=== PATIENT | male | born 1950 | race Caucasian/White ===

== ENCOUNTER 2017-04-04 22:01 | Emergency (ER) | payer MEDICARE, BC ==
[2017-04-04] MEDS ORDERED: CLOTRIMAZOLE 1% CREAM 15 GM TUBE TOPICAL STA (22:20)
--- NOTE | 2017-04-04 22:20 | ED ---
General Adult HPI - General Stated complaint: groin pain Time Seen by Provider: 04/04/17 22:06 Source: patient, RN notes reviewed Mode of arrival: ambulatory Limitations: no limitations - History of Present Illness Initial comments: 66-year-old male presents to the emergency department with a chief complaint of groin pain. Patient states all day he's had this pain to his groin. Patient states it feels very sensitive and tender. Patient states that his groin that is also into his testicles. Patient states he hasn't had any pain with urination. Patient states there is no radiation of pain. Patient states it is tender when he touches the skin. Patient has been putting powder in the skin because there does appear to be a rash. Patient states he was concerned due to his pains without that he should be evaluated. Patient denies any recent fever , chills, shortness of breath, chest pain, back pain, abdominal pain, nausea vomiting, numbness or tingling, dysuria or hematuria, constipation or diarrhea, headaches or visual changes, or any other current symptoms. - Related Data Home Medications Medication Instructions Recorded Confirmed Allopurinol [Zyloprim] 100 mg PO DAILY 11/02/14 04/04/17 Aspirin EC [Ecotrin Low Dose] 81 mg PO HS 11/02/14 04/04/17 Furosemide [Lasix] 80 mg PO TID 11/02/14 04/04/17 Lisinopril [Prinivil] 5 mg PO DAILY 11/02/14 04/04/17 Metoprolol Tartrate 25 mg PO BID 11/02/14 04/04/17 Multivitamins, Thera [Multivitamin 1 tab PO DAILY 11/02/14 04/04/17 (formulary)] Simvastatin [Zocor] 40 mg PO HS 11/02/14 04/04/17 Hydrocodone/Acetaminophen [[place] 1 tab PO Q6HR PRN 01/10/16 04/04/17 5-325] Ipratropium-Albuterol Nebulize 3 ml INHALATION RT-QID PRN 01/10/16 04/04/17 [Duoneb 0.5 mg-3 mg/3 ml Soln] Potassium Chloride [Klor-Con] 40 meq PO BID 01/10/16 04/04/17 Furosemide [Lasix] 80 mg PO BID 02/09/16 04/04/17 Nystatin 100,000Unit/gm Cream 1 applic TOPICAL BID 04/04/17 04/04/17 [Mycostatin Cream] Omeprazole [PriLOSEC] 40 mg PO DAILY 04/04/17 04/04/17 Sertraline [Zoloft] 100 mg PO DAILY 04/04/17 04/04/17 Previous Rx's Medication Instructions Recorded Montelukast [Singulair] 10 mg PO HS #30 tab 11/07/14 Clotrimazole Cream [Lotrimin Cream] 1 applic TOPICAL BID 21 Days 04/04/17 Levofloxacin [Levaquin] 500 mg PO DAILY #20 tab 04/04/17 Allergies Allergy/AdvReac Type Severity Reaction Status Date / Time No Known Allergies Allergy Verified 04/04/17 22:11 Review of Systems ROS Statement: Those systems with pertinent positive or pertinent negative responses have been documented in the HPI. ROS Other: All systems not noted in ROS Statement are negative. Past Medical History Past Medical History: Asthma, Heart Failure, COPD, Hyperlipidemia, Hypertension , Musculoskeletal Disorder, Osteoarthritis (OA), Respiratory Disorder, Sleep Apnea/CPAP/BIPAP Additional Past Medical History / Comment(s): C PAP USES OXYGEN History of Any Multi-Drug Resistant Organisms: None Reported Past Surgical History: Tonsillectomy Additional Past Surgical History / Comment(s): left arm wrist ORIF Past Anesthesia/Blood Transfusion Reactions: No Reported Reaction Additional Past Anesthesia/Blood Transfusion Reaction / Comment(s): Never had Past Psychological History: Depression Additional Psychological History / Comment(s): pt lives at [facility], uses a walker or wheelchair to get around, cares for himself. Smoking Status: Former smoker Past Alcohol Use History: None Reported Additional Past Alcohol Use History / Comment(s): started smoking at age 21- 2ppd then quit 2004, QUIT DRINKING ALCHOLOL JAN 2016 Past Drug Use History: None Reported - Past Family History Mother Family Medical History: Congestive Heart Failure (CHF), Osteoarthritis (OA) Father Family Medical History: CVA/TIA, Hypertension Additional Family Medical History / Comment(s): brain aneurysm Brother(s) Family Medical History: Cancer General Exam Limitations: no limitations General appearance: alert, in no apparent distress Head exam: Present: atraumatic, normocephalic, normal inspection Neck exam: Present: normal inspection. Absent: tenderness, meningismus, lymphadenopathy Respiratory exam: Present: normal lung sounds bilaterally. Absent: respiratory distress, wheezes, rales, rhonchi, stridor Cardiovascular Exam: Present: regular rate, normal rhythm, normal heart sounds. Absent: systolic murmur, diastolic murmur, rubs, gallop, clicks exam: Present: vertical testicular lie, other (She does appear to have a candidiasis type infection to the groin area most consistent with jock itch.). Absent: testicular tenderness, urethral discharge, scrotal swelling Back exam: Present: normal inspection Neurological exam: Present: alert, oriented X3, CN II-XII intact Psychiatric exam: Present: normal affect, normal mood Skin exam: Present: warm, dry, intact, normal color. Absent: rash Course Vital Signs 04/04/17 22:03 Temperature 98.2 F Pulse Rate 98 Respiratory 26 H Rate Blood Pressure 155/77 O2 Sat by Pulse 94 L Oximetry Medical Decision Making - Medical Decision Making 66-year-old male presents emergency Department with a chief complaint of groin pain. Patient ultrasound and urinalysis. Urinalysis is negative however there is concern for possible epididymitis. We will cover with antibiotics for the patient as well as with the cream. The patient discussed care for this and [place] parameters. This time patient does appear to have tinea cruris. We will set the patient on medication for this. We discussed up with Dr. duncan parameters. Discussed all the patient's questions. He stated he understood reasons. Plan. He'll be discharged home. - Lab Data Lab Results 04/04/17 Range/Units 22:12 Urine Color Light Yellow Urine Appearance Clear (Clear) Urine pH 7.0 (5.0-8.0) Ur Specific [place] 1.005 (1.001-1.035) Urine Protein Negative (Negative) Urine Glucose (UA) Negative (Negative) Urine Ketones Negative (Negative) Urine Blood Negative (Negative) Urine Nitrite Negative (Negative) Urine Bilirubin Negative (Negative) Urine Urobilinogen <2.0 (<2.0) mg/dL Ur Leukocyte Esterase Negative (Negative) - Radiology Data Radiology results: report reviewed, image reviewed Disposition Clinical Impression: Tinea cruris, Epididymitis Disposition: HOME SELF-CARE Condition: Stable Instructions: Jock Itch (ED) Additional Instructions: Please use medication as discussed. Please follow up with family doctor if symptoms have not improved over the next two days. Please return to the emergency room if your symptoms increase or worsen or for any other concerns. Prescriptions: Clotrimazole Cream [Lotrimin Cream] 1 applic TOPICAL BID 21 Days Levofloxacin [Levaquin] 500 mg PO DAILY #20 tab Referrals: Alison Leon MD [Primary Care Provider] - 1-2 days Time of Disposition: 23:47
[2017-04-04 22:29] LABS: Appearance,Urine Clear (Clear); Bilirubin,Urine Negative (Negative); Glucose,Urine (UA) Negative (Negative); Ketones,Urine Negative (Negative); Leukocyte Esterase,Urine Negative (Negative); Nitrite,Urine Negative (Negative); Protein,Urine Negative (Negative); Specific Gravity,Urine 1.005 (1.001-1.035); UA Billing (MACRO vs. MICRO) CHEM; Urobilinogen,Urine <2.0 mg/dL (<2.0)
--- NOTE | 2017-04-04 23:44 | US ---
EXAM: US Scrotum CLINICAL HISTORY: Reason: Pain TECHNIQUE: Real-time ultrasound of the scrotum with color Doppler and image documentation. COMPARISON: None FINDINGS: Right testicle: Measures 3.3 x 2.0 x 3.3 cm (volume 11.6 cc). Normal color Doppler flow to the right testicle. 5 mm simple-appearing cyst in the right testicle. Right epididymis: Right epididymal head measures 0.9 cm. Increased color Doppler flow. Left testicle: Measures 3.1 x 3.4 x 2.2 cm (volume 12.1 cc). Normal color Doppler flow to the left testicle. Left epididymis: Left epididymal head measures 0.7 cm. Normal appearance. Scrotum: No hydrocele or varicocele. IMPRESSION: Hyperemia of the right epididymis, suggestive of epididymitis.
[2017-04-05 00:07] VITALS: BP 137/66; PULSE 88; RESP 18; TEMP 97.9
== END 2017-04-05 00:11 | disposition home or self-care (01) ==
LOC: EC 22:01
DX: B35.6 Tinea cruris (principal); N45.1 Epididymitis; M19.90 Unspecified osteoarthritis, unspecified site; I10 Essential (primary) hypertension; F32.9 Major depressive disorder, single episode, unspecified; E78.5 Hyperlipidemia, unspecified; Z87.891 Personal history of nicotine dependence; Z79.82 Long term (current) use of aspirin; Z79.899 Other long term (current) drug therapy
CPT/HCPCS: 76870; 81003; 87086; 93975; 99284

== ENCOUNTER 2017-04-14 13:52 | Emergency (ER) | payer MEDICARE, BC ==
[2017-04-14 14:23] VITALS: BP 119/71; PULSE 71; RESP 18; TEMP 97.5
--- NOTE | 2017-04-14 14:51 | ED ---
Fall HPI - General Chief Complaint: Fall Stated Complaint: Fall left shoulder injury Time Seen by Provider: 04/14/17 14:28 Source: patient, RN notes reviewed Mode of arrival: wheelchair Limitations: no limitations - History of Present Illness Initial Comments: 66-year-old male presents emergency Department with chief complaint of trip and fall. Patient had 2 falls last 2 days. Patient states he tripped full times over objects. Patient complains of left knee pain, left shoulder, neck and upper back pain. He states he had no head injury no loss conscious. Patient states he fell forward and fell onto his knee and caught himself with his arms causing upper back, neck region pain. Patient denies any loss conscious no blurred vision don't chest pain or shortness of breath no LOC no nausea vomiting. Patient states that he is on Celexa nothing is broken. Patient offers no other complaints. - Related Data Home Medications Medication Instructions Recorded Confirmed Allopurinol [Zyloprim] 100 mg PO DAILY 11/02/14 04/04/17 Aspirin EC [Ecotrin Low Dose] 81 mg PO HS 11/02/14 04/04/17 Furosemide [Lasix] 80 mg PO TID 11/02/14 04/04/17 Lisinopril [Prinivil] 5 mg PO DAILY 11/02/14 04/04/17 Metoprolol Tartrate 25 mg PO BID 11/02/14 04/04/17 Multivitamins, Thera [Multivitamin 1 tab PO DAILY 11/02/14 04/04/17 (formulary)] Simvastatin [Zocor] 40 mg PO HS 11/02/14 04/04/17 Hydrocodone/Acetaminophen [[place] 1 tab PO Q6HR PRN 01/10/16 04/04/17 5-325] Ipratropium-Albuterol Nebulize 3 ml INHALATION RT-QID PRN 01/10/16 04/04/17 [Duoneb 0.5 mg-3 mg/3 ml Soln] Potassium Chloride [Klor-Con] 40 meq PO BID 01/10/16 04/04/17 Furosemide [Lasix] 80 mg PO BID 02/09/16 04/04/17 Nystatin 100,000Unit/gm Cream 1 applic TOPICAL BID 04/04/17 04/04/17 [Mycostatin Cream] Omeprazole [PriLOSEC] 40 mg PO DAILY 04/04/17 04/04/17 Sertraline [Zoloft] 100 mg PO DAILY 04/04/17 04/04/17 Previous Rx's Medication Instructions Recorded Montelukast [Singulair] 10 mg PO HS #30 tab 11/07/14 Clotrimazole Cream [Lotrimin Cream] 1 applic TOPICAL BID 21 Days 04/04/17 Levofloxacin [Levaquin] 500 mg PO DAILY #20 tab 04/04/17 Hydrocodone/Acetaminophen [[place] 1 tab PO Q6HR PRN #15 tab 04/14/17 5-325] Allergies Allergy/AdvReac Type Severity Reaction Status Date / Time No Known Allergies Allergy Verified 04/14/17 14:23 Review of Systems ROS Statement: Those systems with pertinent positive or pertinent negative responses have been documented in the HPI. ROS Other: All systems not noted in ROS Statement are negative. Past Medical History Past Medical History: Asthma, Heart Failure, COPD, Hyperlipidemia, Hypertension , Musculoskeletal Disorder, Osteoarthritis (OA), Respiratory Disorder, Sleep Apnea/CPAP/BIPAP Additional Past Medical History / Comment(s): C PAP USES OXYGEN History of Any Multi-Drug Resistant Organisms: None Reported Past Surgical History: Tonsillectomy Additional Past Surgical History / Comment(s): left arm wrist ORIF Past Anesthesia/Blood Transfusion Reactions: No Reported Reaction Additional Past Anesthesia/Blood Transfusion Reaction / Comment(s): Never had Past Psychological History: Depression Additional Psychological History / Comment(s): pt lives at [facility], uses a walker or wheelchair to get around, cares for himself. Smoking Status: Former smoker Past Alcohol Use History: Occasional Additional Past Alcohol Use History / Comment(s): started smoking at age 21- 2ppd then quit 2004, QUIT DRINKING ALCHOLOL JAN 2016 Past Drug Use History: None Reported - Past Family History Mother Family Medical History: Congestive Heart Failure (CHF), Osteoarthritis (OA) Father Family Medical History: CVA/TIA, Hypertension Additional Family Medical History / Comment(s): brain aneurysm Brother(s) Family Medical History: Cancer General Exam General appearance: alert, in no apparent distress Head exam: Present: atraumatic, normocephalic, normal inspection Eye exam: Present: normal appearance, PERRL, EOMI. Absent: scleral icterus, conjunctival injection, periorbital swelling ENT exam: Present: normal exam, normal oropharynx, mucous membranes moist Neck exam: Present: normal inspection, tenderness (Mild right paraspinal tenderness of the cervical spine), full ROM. Absent: meningismus, lymphadenopathy Respiratory exam: Present: normal lung sounds bilaterally. Absent: respiratory distress, wheezes, rales, rhonchi, stridor, chest wall tenderness Cardiovascular Exam: Present: regular rate, normal rhythm, normal heart sounds. Absent: systolic murmur, diastolic murmur, rubs, gallop, clicks Extremities exam: Present: other (Small abrasion noted to left knee full range of motion though mild tenderness over medial aspect. Upper extremity strength equal bilaterally minimal left shoulder tenderness and mild discomfort with range of motion neurovascular intact) Back exam: Present: full ROM, tenderness (Mild tenderness of the thoracic spine and paraspinal region). Absent: CVA tenderness (R), muscle spasm Neurological exam: Present: alert, oriented X3, CN II-XII intact, reflexes normal. Absent: motor sensory deficit Skin exam: Present: warm, dry, intact, normal color. Absent: rash Course Vital Signs 04/14/17 14:18 Temperature 97.5 F L Pulse Rate 71 Respiratory 18 Rate Blood Pressure 119/71 O2 Sat by Pulse 95 Oximetry Medical Decision Making - Medical Decision Making 66-year-old male presented for fall. Patient has multiple contusion injuries but no few fractures. Patient has multiple degenerative changes arthritic changes on x-rays. Patient be discharged with pain medication return parameters were discussed. Disposition Clinical Impression: Fall, Contusion of left knee, Back pain, Shoulder pain Disposition: HOME SELF-CARE Condition: Stable Instructions: Contusion in Adults (ED) Additional Instructions: Please return to the Emergency Department if symptoms worsen or any other concerns. Prescriptions: Hydrocodone/Acetaminophen [[place] 5-325] 1 tab PO Q6HR PRN #15 tab PRN Reason: Pain Time of Disposition: 15:17
--- NOTE | 2017-04-14 15:11 | XR ---
EXAMINATION TYPE: XR knee complete LT DATE OF EXAM: 04/14/2017 3:06 PM CLINICAL HISTORY: Multiple falls for 2 days with left knee pain. TECHNIQUE: Three views of the left knee are obtained. COMPARISON: None. FINDINGS: There is no acute fracture/dislocation evident in left knee. There is mild tricompartment joint space loss and mild spurring. The overlying soft tissue appears unremarkable. IMPRESSION: There is no acute fracture or dislocation in the left knee.
--- NOTE | 2017-04-14 15:12 | XR ---
EXAMINATION TYPE: XR Hip Complete RT DATE OF EXAM: 04/14/2017 3:07 PM CLINICAL HISTORY: Fall injury with right hip pain. TECHNIQUE: AP and frogleg views of the right hip are obtained. COMPARISON: Right hip x-ray March 04, 2014 FINDINGS: There is no acute fracture/dislocation evident in the right hip. Mild to moderate axial javy int space loss is redemonstrated.. The overlying soft tissue appears unremarkable. IMPRESSION: There is no acute fracture or dislocation in the right hip.
--- NOTE | 2017-04-14 15:13 | XR ---
EXAMINATION TYPE: XR shoulder complete LT DATE OF EXAM: 04/14/2017 3:06 PM COMPARISON: NONE HISTORY: Pain TECHNIQUE: Three views are submitted. FINDINGS: The osseous structures are intact. There is no acute fracture or dislocation. The AC joint is narro wed with significant arthropathy. Apical pleural thickening on the left noted.. IMPRESSION: 1. Severe AC joint arthropathy correlate for chronic rotator cuff disease.
--- NOTE | 2017-04-14 15:13 | XR ---
EXAMINATION TYPE: 5 view cervical spine. 3 views thoracic spine. DATE OF EXAM: 04/14/2017 3:07 PM COMPARISON: NONE HISTORY: 66-year-old male with pain after multiple falls FINDINGS: Cervical spine: The predental space widening or prevertebral soft tissue swelling. Patient's shoulders are elevated. As a result, on the lateral view of the cervical spine, only down to C3 level is apparent. There is multilevel uncovertebral joint and facet arthropathy as well as at least moderate multilevel disc/endplate degenerative change. On the right, there is mild to moderate bony neuroforaminal narrowing at C4-C5 and C5-C6 and mild at C3-C4. On the left, there is mild bony neuroforaminal narrowing at C5-C6. Normal odontoid view. Some heterotopic ossification posteriorly along the upper cervical region. Thoracic spine: On the swimmer's view, a trace grade 1 anterolisthesis at C6-C7 is apparent. All pedicles are visualized. Anterior plate spondylosis with mild multilevel degenerative disc diseas e is noted. Vertebral body heights are preserved and alignment is maintained. IMPRESSION: 1. Moderate to advanced multilevel spondylotic change of the cervical spine with grade 1 anterolisthe sis and C6-C7. 2. Thoracic spine without vertebral compression collapse or malalignment.
== END 2017-04-14 15:28 | disposition home or self-care (01) ==
LOC: EC 13:52
DX: S80.02XA Contusion of left knee, initial encounter (principal); M54.6 Pain in thoracic spine; M25.512 Pain in left shoulder; I11.0 Hypertensive heart disease with heart failure; I50.9 Heart failure, unspecified; E78.5 Hyperlipidemia, unspecified; M19.90 Unspecified osteoarthritis, unspecified site; F32.9 Major depressive disorder, single episode, unspecified; Z87.891 Personal history of nicotine dependence; Z79.82 Long term (current) use of aspirin; Z79.899 Other long term (current) drug therapy; W01.0XXA Fall on same level from slipping, tripping and stumbling without subsequent striking against object, initial encounter
CPT/HCPCS: 72050; 72070; 73502; 99284

== ENCOUNTER 2017-05-09 14:44 | Emergency (ER) | payer MEDICARE, BC ==
[2017-05-09] MEDS ORDERED: SODIUM CHLORIDE 0.9% 1,000 ML IV STA (15:14)
[2017-05-09] MEDS ORDERED: ONDANSETRON 4 MG/2 ML VIAL IVP STA (15:14)
[2017-05-09] MEDS ORDERED: SODIUM CHLORIDE 0.9% 500 ML IV STA (15:14)
[2017-05-09 15:28] VITALS: TEMP 98.3
--- NOTE | 2017-05-09 15:33 | ED ---
General Adult HPI - General Chief complaint: Nausea/Vomiting/Diarrhea Stated complaint: Weakness Time Seen by Provider: 05/09/17 15:06 Source: patient, EMS, RN notes reviewed Mode of arrival: EMS - History of Present Illness Initial comments: Patient 66-year-old male who presents emergency room today with a chief complaint of diarrhea. He states his symptoms started yesterday morning. He states he was up throughout the night with diarrhea episodes. Denies any signs of blood. Admits some mild discomfort left lower quadrant. Admits feeling nauseated having a few episodes of vomiting. Patient denies any recent fever, chills, shortness of breath, chest pain, back pain, numbness or tingling, dysuria or hematuria, constipation, headaches or visual changes, or any other complaints. - Related Data Home Medications Medication Instructions Recorded Confirmed Allopurinol [Zyloprim] 100 mg PO DAILY 11/02/14 05/09/17 Aspirin EC [Ecotrin Low Dose] 81 mg PO HS 11/02/14 05/09/17 Furosemide [Lasix] 80 mg PO TID 11/02/14 05/09/17 Lisinopril [Prinivil] 5 mg PO DAILY 11/02/14 05/09/17 Metoprolol Tartrate 25 mg PO BID 11/02/14 05/09/17 Multivitamins, Thera [Multivitamin 1 tab PO DAILY 11/02/14 05/09/17 (formulary)] Simvastatin [Zocor] 40 mg PO HS 11/02/14 05/09/17 Ipratropium-Albuterol Nebulize 3 ml INHALATION RT-QID PRN 01/10/16 05/09/17 [Duoneb 0.5 mg-3 mg/3 ml Soln] Potassium Chloride [Klor-Con] 40 meq PO BID 01/10/16 05/09/17 Furosemide [Lasix] 80 mg PO BID 02/09/16 05/09/17 Nystatin 100,000Unit/gm Cream 1 applic TOPICAL BID 04/04/17 05/09/17 [Mycostatin Cream] Omeprazole [PriLOSEC] 40 mg PO DAILY 04/04/17 05/09/17 Sertraline [Zoloft] 100 mg PO DAILY 04/04/17 05/09/17 Clotrimazole Cream [Lotrimin Cream] 1 applic TOPICAL BID 05/09/17 05/09/17 Meloxicam [Mobic] 7.5 mg PO BID 05/09/17 05/09/17 Previous Rx's Medication Instructions Recorded Montelukast [Singulair] 10 mg PO HS #30 tab 11/07/14 Hydrocodone/Acetaminophen [[place] 1 tab PO Q6HR PRN #15 tab 04/14/17 5-325] Loperamide [Imodium] 2 mg PO DIRECTED #20 capsule 05/09/17 Allergies Allergy/AdvReac Type Severity Reaction Status Date / Time No Known Allergies Allergy Verified 05/09/17 15:42 Review of Systems ROS Statement: Those systems with pertinent positive or pertinent negative responses have been documented in the HPI. ROS Other: All systems not noted in ROS Statement are negative. Past Medical History Past Medical History: Asthma, Heart Failure, COPD, Hyperlipidemia, Hypertension , Musculoskeletal Disorder, Osteoarthritis (OA), Respiratory Disorder, Sleep Apnea/CPAP/BIPAP Additional Past Medical History / Comment(s): C PAP USES OXYGEN History of Any Multi-Drug Resistant Organisms: None Reported Past Surgical History: Tonsillectomy Additional Past Surgical History / Comment(s): left arm wrist ORIF Past Anesthesia/Blood Transfusion Reactions: No Reported Reaction Additional Past Anesthesia/Blood Transfusion Reaction / Comment(s): Never had Past Psychological History: No Psychological Hx Reported Additional Psychological History / Comment(s): pt lives at [facility], uses a walker or wheelchair to get around, cares for himself. Smoking Status: Former smoker Past Alcohol Use History: Rare Additional Past Alcohol Use History / Comment(s): started smoking at age 21- 2ppd then quit 2004, QUIT DRINKING ALCHOLOL JAN 2016 Past Drug Use History: None Reported - Past Family History Mother Family Medical History: Congestive Heart Failure (CHF), Osteoarthritis (OA) Father Family Medical History: CVA/TIA, Hypertension Additional Family Medical History / Comment(s): brain aneurysm Brother(s) Family Medical History: Cancer Course Vital Signs 05/09/17 05/09/17 15:21 16:30 Temperature 98.3 F Pulse Rate 68 68 Respiratory 17 20 Rate Blood Pressure 119/59 129/77 O2 Sat by Pulse 97 96 Oximetry Medical Decision Making - Medical Decision Making patient reexamined at this time shows no signs of distress. Abdomen soft on palpation. Does have 13,[address] of the abdomen and pelvis shows no acute findings to cover his symptoms. Results were discussed with the patient. He states is feeling better at this time would like to be discharged home. Patient will be advised to use Imodium for his symptoms. Unable to obtain stool sample here in the emergency room.Advised to continue to increase his oral fluids return here to the emergency room symptoms increase worsen. Rest. Cynthia doctor over the next 2 days. He states understanding and is in agreement. - Lab Data Result diagrams: 05/09/17 15:30 05/09/17 16:52 Lab Results 05/09/17 05/09/17 05/09/17 Range/Units 15:30 16:17 16:52 WBC 13.1 H (3.8-10.6) k/uL RBC 4.88 (4.30-5.90) m/uL Hgb 14.7 (13.0-17.5) gm/dL Hct 44.2 (39.0-53.0) % MCV 90.7 (80.0-100.0) fL MCH 30.1 (25.0-35.0) pg MCHC 33.2 (31.0-37.0) g/dL RDW 14.5 (11.5-15.5) % Plt Count 210 (150-450) k/uL Neutrophils % 84 % Lymphocytes % 5 % Monocytes % 7 % Eosinophils % 1 % Basophils % 0 % Neutrophils # 11.1 H (1.3-7.7) k/uL Lymphocytes # 0.7 L (1.0-4.8) k/uL Monocytes # 0.9 (0-1.0) k/uL Eosinophils # 0.2 (0-0.7) k/uL Basophils # 0.0 (0-0.2) k/uL Sodium 136 L (137-145) mmol/L Potassium 5.2 H (3.5-5.1) mmol/L Chloride 104 (98-107) mmol/L Carbon Dioxide 22 (22-30) mmol/L Anion Gap 10 mmol/L BUN 29 H (9-20) mg/dL Creatinine 1.08 (0.66-1.25) mg/dL Est GFR (MDRD) Af Amer >60 (>60 ml/min/1.73 sqM) Est GFR (MDRD) Non-Af >60 (>60 ml/min/1.73 sqM) Glucose 89 (74-99) mg/dL Calcium 8.4 (8.4-10.2) mg/dL Total Bilirubin 1.2 (0.2-1.3) mg/dL AST 66 H (17-59) U/L ALT 42 (21-72) U/L Alkaline Phosphatase 69 (38-126) U/L Total Protein 7.1 (6.3-8.2) g/dL Albumin 3.9 (3.5-5.0) g/dL Amylase 55 (30-110) U/L Lipase 44 (23-300) U/L Urine Color Yellow Urine Appearance Clear (Clear) Urine pH 6.0 (5.0-8.0) Ur Specific [place] 1.017 (1.001-1.035) Urine Protein Negative (Negative) Urine Glucose (UA) Negative (Negative) Urine Ketones Negative (Negative) Urine Blood Negative (Negative) Urine Nitrite Negative (Negative) Urine Bilirubin Negative (Negative) Urine Urobilinogen <2.0 (<2.0) mg/dL Ur Leukocyte Esterase Negative (Negative) Disposition Clinical Impression: Acute diarrhea Disposition: HOME SELF-CARE Condition: Good Instructions: Acute Diarrhea (ED) Additional Instructions: Please use medication as discussed. Please follow-up with family doctor in the next 2 days of symptoms have not improved. Please return to emergency room if the symptoms increase or worsen or for any other concerns. Prescriptions: Loperamide [Imodium] 2 mg PO DIRECTED #20 capsule Referrals: Alison Leon MD [Primary Care Provider] - 1-2 days Time of Disposition: 18:25
[2017-05-09 15:44] LABS: Basophils % (A) 0 %; CH 29.8; Eosinophils # (A) 0.2 k/uL (0-0.7); Eosinophils % (A) 1 %; HCT 44.2 % (39.0-53.0); HDW 2.61; HGB 14.7 gm/dL (13.0-17.5); Luc # (Auto) 0.25; Luc % (Auto) 2; Lymphocytes # (A) 0.7 k/uL (1.0-4.8); Lymphocytes % (A) 5 %; MCH 30.1 pg (25.0-35.0); MCHC 33.2 g/dL (31.0-37.0); MCV 90.7 fL (80.0-100.0); Mean Platelet Volume 7.1; Monocytes # (A) 0.9 k/uL (0-1.0); Monocytes % (A) 7 %; Neutrophils # (A) 11.1 k/uL (1.3-7.7); Neutrophils % (A) 84 %; RBC 4.88 m/uL (4.30-5.90); RDW 14.5 % (11.5-15.5); WBC 13.1 k/uL (3.8-10.6); WBC (Perox) 12.73
[2017-05-09] MEDS ORDERED: RX INFO: IV CONTRAST WAS GIVEN 1 EACH MISC MISCELLANE PRN (16:23)
[2017-05-09 16:35] LABS: Appearance,Urine Clear (Clear); Bilirubin,Urine Negative (Negative); Glucose,Urine (UA) Negative (Negative); Ketones,Urine Negative (Negative); Leukocyte Esterase,Urine Negative (Negative); Nitrite,Urine Negative (Negative); Protein,Urine Negative (Negative); Specific Gravity,Urine 1.017 (1.001-1.035); UA Billing (MACRO vs. MICRO) CHEM; Urobilinogen,Urine <2.0 mg/dL (<2.0)
[2017-05-09 17:14] LABS: ALT 42 U/L (21-72); Alkaline Phosphatase 69 U/L (38-126); Amylase 55 U/L (30-110); Anion Gap 10 mmol/L; Calcium 8.4 mg/dL (8.4-10.2); Carbon Dioxide 22 mmol/L (22-30); Chloride 104 mmol/L (98-107); Glucose 89 mg/dL (74-99); Non-African American GFR(MDRD) >60 (>60 ml/min/1.73 sqM); Sodium 136 mmol/L (137-145); Total Bilirubin 1.2 mg/dL (0.2-1.3); Total Protein 7.1 g/dL (6.3-8.2)
[2017-05-09 17:17] LABS: AST 66 U/L (17-59); Blood Urea Nitrogen 29 mg/dL (9-20); Potassium 5.2 mmol/L (3.5-5.1)
--- NOTE | 2017-05-09 18:19 | CT ---
EXAMINATION TYPE: CT abdomen pelvis w con DATE OF EXAM: 05/09/2017 COMPARISON: 09/11/2016 HISTORY: Nausea and diarrhea CT DLP: 3725 mGycm Automated exposure control for dose reduction was used. TECHNIQUE: Helical acquisition of images was performed from the lung bases through the pelvis. CONTRAST: Performed without Oral Contrast and with IV Contrast, patient injected with 100 mL of Omnipaque 300. FINDINGS: There is mild interstitial density at the lung bases. Heart appears enlarged. Liver shows no focal defect. Spleen and pancreas appear normal. Gallbladder is slightly contracted. B ile ducts are not dilated. There is no adrenal mass. There is a 3 mm calcification in the lower pole left kidney. There is a 3 cm cortical cyst on the upper pole right kidney. There is no retroperitonea l adenopathy. There is no ascites. Bladder distends smoothly. I see no intestinal wall thickening. Th ere are scattered diverticula in the colon. There is no sign of appendicitis. There are some spondylo tic changes in the lumbar spine.: IMPRESSION: NO SIGN OF ACUTE ABDOMEN AND PELVIS. NONOBSTRUCTING SMALL LEFT RENAL CALCULUS. SMALL RIGHT RENAL GABY ICAL CYST. NO ADVERSE CHANGE COMPARED TO OLD EXAM. MILD STABLE SUBCUTANEOUS EDEMA OVER THE LOWER LUMB AR SPINE.
[2017-05-09 19:51] VITALS: BP 110/60; PULSE 76; RESP 16
== END 2017-05-09 20:05 | disposition home or self-care (01) ==
LOC: EC 14:44
DX: R19.7 Diarrhea, unspecified (principal); R11.2 Nausea with vomiting, unspecified; E78.5 Hyperlipidemia, unspecified; I11.0 Hypertensive heart disease with heart failure; M19.90 Unspecified osteoarthritis, unspecified site; Z79.1 Long term (current) use of non-steroidal anti-inflammatories (NSAID); Z87.891 Personal history of nicotine dependence; Z79.82 Long term (current) use of aspirin; Z79.899 Other long term (current) drug therapy
CPT/HCPCS: 36415; 80053; 82150; 83690; 85025; 81003; 74177; 99285; 96374; 96361; J2405; Q9967

== ENCOUNTER → 2017-08-29 | Outpatient (CLI) | payer MEDICARE, BC ==
--- NOTE | 2017-08-29 12:02 | XR ---
EXAMINATION TYPE: XR knee complete LT DATE OF EXAM: 08/29/2017 CLINICAL HISTORY: Medial knee pain for one week with no known injury TECHNIQUE: Three views of the left knee are obtained. COMPARISON: None. FINDINGS: There is no acute fracture/dislocation evident in left knee. There is mild medial joint sp michael narrowing and subchondral tibial plateau sclerosis. Small osteophyte projects from the medial ti bial plateau and small osteophytes are seen projecting from the superior and inferior patellar poles. The overlying soft tissue appears unremarkable. No discrete joint effusion. IMPRESSION: 1. There is no acute fracture or dislocation in the left knee. 2. Mild bicompartmental osteoarthrosis.
== END | disposition home or self-care (01) ==
LOC: RADXRMAIN 11:24
PROVIDERS: ATTEND Internal Medicine
DX: M17.12 Unilateral primary osteoarthritis, left knee (principal)

== ENCOUNTER → 2019-07-20 | Day surgery (SDC) | payer MEDICARE, BC ==
[2019-07-14 12:29] VITALS: BMI 46.9
[~2019-07-20] MED LIST: BUPIVACAINE (PF) 0.5% 30 ML VIAL SQ ONE; DEXAMETHASONE SOD PHOSPHATE 10 MG/ML 1 ML VIAL IV ONE; HYDROmorphone 0.5 MG/0.5 ML SYRINGE IVP PRN; KETAMINE 10 MG/ML 20 ML VIAL ONE; LACTATED RINGERS 1,000 ML IV ONE; LACTATED RINGERS 1,000 ML IV SCH; LIDOCAINE 1% 20 ML VIAL (10MG/ML) FOR IV START INTRADERMA PRN; LIDOCAINE 1% INJ 10MG/ML (20 ML MDV) ONE; LIDOCAINE 2% INJ 20 MG/ML SQ ONE; MIDAZOLAM (PF) 2 MG/2 ML VIAL IVP ONE; MIDAZOLAM 2 MG/2 ML VIAL IV PRN; MIDAZOLAM 2 MG/2 ML VIAL ONE; ONDANSETRON 4 MG/2 ML VIAL IVP ONE; PROPOFOL 10 MG/ML 20 ML VIAL IV ONE; ROPIVACAINE 5 MG/ML 30 ML VIAL ONE; SCOPOLAMINE 1.5MG/72HR PATCH TRANSDERM ONE; ceFAZolin 3 GM in SODIUM CHLORIDE 0.9% 100 ML IVPB ONE; fentaNYL (PF) 50 MCG/ML 2 ML AMP IVP ONE; fentaNYL (PF) 50 MCG/ML 2 ML AMP ONE
[2019-07-20 06:45] VITALS: TEMP 97.8
[2019-07-20 11:45] VITALS: BP 94/57; PULSE 64; RESP 18
--- NOTE | 2019-07-20 11:50 | P.ANPRN ---
Procedure Note - Anesthesia - Nerve Block Performed Left Supraclavicular Single Time Out Performed: Yes Date of Procedure: 07/20/19 Procedure Start Time: :30 Procedure Stop Time: :50 Location of Patient Procedure: PreOp Indication: Acute Post-Operative Pain, Analgesia, Requested by Surgeon Sedation Type: Sedate with meaningful contact maintained Preparation: Sterile Prep Position: Sitting Catheter: None Needle Types: Pajunk Needle Gauge: 21 Technique: Ultrasound Injectate: Other (see comment) (4% lido-10 CC +5cc normal saline + 5cc 0.5% ropivacaine) Blood Aspirated: No Pain Paresthesia on Injection Noted: No Resistance on Injection: Normal Events: Uneventful and Well Tolerated
--- NOTE | 2019-07-20 12:34 | FL ---
EXAMINATION TYPE: FL guidance operating room, XR wrist limited LT DATE OF EXAM: 07/20/2019 CLINICAL HISTORY: History of left wrist fracture. TECHNIQUE: Fluoroscopy. Intraoperative limited views left wrist. COMPARISON: None. FINDINGS: Fluoroscopic guidance was provided during foreign body removal procedure performed by Dr. Lance. A total of 9 seconds of fluoroscopic time was utilized during the procedure and 3 spot francisco ges was acquired. Images acquired show metallic foreign body overlying base of third metacarpal and then suspected inte rval successful removal with persistent nail at level of distal radius incidentally noted. IMPRESSION: As Above.
--- NOTE | 2019-07-21 17:54 | OP ---
OPERATIVE REPORT DATE OF SURGERY: 07/20/2019 PREOPERATIVE DIAGNOSES: 1. Left carpal tunnel syndrome. 2. Irritating metal, left distal radius. 3. Metal failure with screw head migration into the carpal tunnel. 4. Flexor tendinitis. 5. Median nerve irritation. FINAL DIAGNOSES: 1. Left carpal tunnel syndrome. 2. Irritating metal, left distal radius. 3. Metal failure with screw head migration into the carpal tunnel. 4. Flexor tendinitis. 5. Median nerve irritation. PROCEDURES: 1. Left carpal tunnel release. 2. Removal of plate and screws, left distal radius. 3. Extensive carpal tunnel exposure for flexor tenolysis. 4. Extensive carpal tunnel exposure for median neurolysis. 5. Removal of metal screw head, carpal canal. INDICATIONS: Ixzwn[age][id number]-old man has experienced a most unusual metal failure complication of a routine distal volar radial plate and screw application 11 years ago. He had a screw head fracture and migrate distally 5 cm into the carpal canal where it was irritating the median nerve and flexor tendons. Preoperatively there were no signs of infection or tendon rupture. He had also developed carpal tunnel symptoms. As a result, not only was a standard carpal tunnel release performed, but the incision had to be extended into the mid palm for flexor tenolysis and median nerve neurolysis. GROSS PATHOLOGY: Using C-arm fluoroscopy, the screw head was identified in the depths of the carpal tunnel, imbedded in the tissue surrounding the flexor digitorum sublimis to the index and middle fingers. Fortunately there were no signs of tendon rupture or erosion from the metal implant. Complete examination of the carpal tunnel and mid palm area demonstrated the median nerve and its branches were intact. The sublimis tendons were intact and the profundus tendons were intact. The volar plate and screws were removed without complication. The remaining shaft from the fractured screw head was firmly imbedded within the distal radius with no signs of penetration on the volar aspect of the radius. It was therefore completely imbedded within the substance of the bone and represented a greater complication for attempt at removal, which would have been extremely difficult versus leaving it alone, which was the chosen treatment. PROCEDURE DESCRIPTION: This 68-year-old man was taken to the operative suite after being given an axillary block preoperative anesthetic by anesthesia. This was supplemented with local sedation. An initial carpal tunnel incision was performed with an extended approach, and a standard carpal tunnel release was performed with direct visualization of the palmar fascia and transverse carpal ligament. Attention was then turned to the distal radius. The old incision was opened. Dissection was taken down to the radial aspect of the flexor carpi radialis. Care was taken to avoid the radial nerve radially and the median nerve medially. Dissection was taken down to the plate and screws, where it was identified, and a combination of rongeur and sharp dissection was used to expose the plate. Overgrown bone was removed with the rongeur. All remaining screws were removed without complication, as was the plate. As stated above, there was no evidence of penetration of the remaining shaft of the broken screw on the volar aspect of the radius. There were no signs of tendon rupture in this area. Attention was then turned to the hand and the palm area. The carpal tunnel incision was extended significantly to gain exposure to the entire contents of the carpal tunnel and deep exposure of the volar components in the palm. Dissection was performed under 4.5 loupe magnification. The median nerve was neurolysed and noted to be free of any visible signs of injury. It was gently retracted to the radial aspect. The flexor tendons were then visualized individually. Flexor tenolysis was performed and they were noted to be intact. Using C-arm fluoroscopy and under direct inspection, the screw head was identified and removed without complication. The wounds were then thoroughly irrigated. Tourniquet was released. Hemostasis was acquired primarily with pressure. Both incisions were closed with 5-0 nylon suture. Soft bulky dressing and a soft cast were applied. The patient taken to the recovery room in satisfactory condition. MMODL / IJN: [id number] /
== END ==
LOC: OR 06:01
PROVIDERS: ATTEND Orthopaedic Surgery Hand Surgery
DX: G56.02 Carpal tunnel syndrome, left upper limb (principal); T84.113A Breakdown (mechanical) of internal fixation device of bone of left forearm, initial encounter; M77.9 Enthesopathy, unspecified; I11.0 Hypertensive heart disease with heart failure; I50.9 Heart failure, unspecified; I25.10 Atherosclerotic heart disease of native coronary artery without angina pectoris; I25.84 Coronary atherosclerosis due to calcified coronary lesion; E78.5 Hyperlipidemia, unspecified; J45.909 Unspecified asthma, uncomplicated; G47.33 Obstructive sleep apnea (adult) (pediatric); R00.2 Palpitations; R19.7 Diarrhea, unspecified; R21 Rash and other nonspecific skin eruption; R41.3 Other amnesia; Z87.891 Personal history of nicotine dependence; Z99.89 Dependence on other enabling machines and devices; Z99.81 Dependence on supplemental oxygen; Z79.01 Long term (current) use of anticoagulants; Z79.82 Long term (current) use of aspirin; Z79.899 Other long term (current) drug therapy; E66.01 Morbid (severe) obesity due to excess calories; Z68.42 Body mass index [BMI] 45.0-49.9, adult; Z97.3 Presence of spectacles and contact lenses; Z96.652 Presence of left artificial knee joint
CPT/HCPCS: 64721; 20680; 64413; 84132; 73100; J2001 ×2; J2250 ×2; J1100; J0690; J2405; J3010; J2795; J2704

== ENCOUNTER 2019-07-30 08:44 | Emergency (ER) | payer MEDICARE, BC ==
[2019-07-30 08:59] VITALS: TEMP 97.9
--- NOTE | 2019-07-30 09:21 | ED ---
General Adult HPI - General Chief complaint: Extremity Injury, Upper Stated complaint: Hand Lac reopened Time Seen by Provider: 07/30/19 09:06 Source: patient, RN notes reviewed Mode of arrival: ambulatory Limitations: no limitations - History of Present Illness Initial comments: 68-year-old male with a past medical history of asthma, heart failure, hyp erlipidemia, hypertension presents to the emergency department for a chief complaint of wound dehiscence. Patient had surgery for carpal tunnel on July [address] Cody Dill. States that he had his sutures out a few days ago. However today patient was trying to crack an ice cube tray by twisting it when he felt the wound tear. States it was bleeding significantly at that time. States he did not try to call his surgeon came to the emergency department.Patient has no other complaints at this time including shortness of breath, chest pain, abdominal pain, nausea or vomiting, headache, or visual changes. - Related Data Home Medications Medication Instructions Recorded Confirmed Allopurinol [Zyloprim] 100 mg PO QAM 11/02/14 07/14/19 Aspirin EC [Ecotrin Low Dose] 81 mg PO HS 11/02/14 07/14/19 Lisinopril [Prinivil] 2.5 mg PO HS 11/02/14 07/14/19 Metoprolol Tartrate 25 mg PO BID 11/02/14 07/14/19 Multivitamins, Thera [Multivitamin 1 tab PO QAM 11/02/14 07/14/19 (formulary)] Potassium Chloride [Klor-Con 40 meq PO BID 01/10/16 07/14/19 Packets] Furosemide [Lasix] 80 mg PO BID 02/09/16 07/14/19 Omeprazole [PriLOSEC] 40 mg PO QAM 04/04/17 07/14/19 Sertraline [Zoloft] 100 mg PO QAM 04/04/17 07/14/19 Atorvastatin [Lipitor] 20 mg PO HS 07/14/19 07/14/19 Cholecalciferol [Vitamin D3 (25 1,000 unit PO QAM 07/14/19 07/14/19 Mcg = 1000 Iu)] Clindamycin [Cleocin] 300 mg PO TID 07/14/19 07/14/19 Gabapentin [Neurontin] 300 mg PO HS 07/14/19 07/14/19 Gabapentin [Neurontin] 600 mg PO QAM 07/14/19 07/14/19 Magnesium Oxide [Mag-Ox] 400 mg PO TID 07/14/19 07/14/19 Spironolactone [Aldactone] 25 mg PO QAM 07/14/19 07/14/19 Tamsulosin [Flomax] 0.4 mg PO HS 07/14/19 07/14/19 Warfarin [Coumadin] 5 mg PO DAILY 07/14/19 07/14/19 Previous Rx's Medication Instructions Recorded Montelukast [Singulair] 10 mg PO HS #30 tab 11/07/14 HYDROcodone/APAP 5-325MG [[place] 5] 1 - 2 each PO Q4-6H PRN #20 tab 07/20/19 Cephalexin [Keflex] 500 mg PO Q6HR 7 Days #28 cap 07/30/19 Allergies Allergy/AdvReac Type Severity Reaction Status Date / Time No Known Allergies Allergy Verified 07/30/19 08:56 Review of Systems ROS Statement: Those systems with pertinent positive or pertinent negative responses have been documented in the HPI. ROS Other: All systems not noted in ROS Statement are negative. Past Medical History Past Medical History: Asthma, Heart Failure, Hyperlipidemia, Hypertension, Musculoskeletal Disorder, Osteoarthritis (OA), Sleep Apnea/CPAP/BIPAP Additional Past Medical History / Comment(s): C PAP USES OXYGEN. FORGETFULLNESS. DARK STOOLS AND CURRENT DIARRHEA History of Any Multi-Drug Resistant Organisms: None Reported Past Surgical History: Orthopedic Surgery, Tonsillectomy Additional Past Surgical History / Comment(s): LEFT WRIST ORIF. TOTAL KNEE REPLACEMENT ON LEFT Past Anesthesia/Blood Transfusion Reactions: No Reported Reaction Additional Past Anesthesia/Blood Transfusion Reaction / Comment(s): Never had Past Psychological History: No Psychological Hx Reported Smoking Status: Former smoker Past Alcohol Use History: None Reported Past Drug Use History: None Reported - Past Family History Mother Family Medical History: Congestive Heart Failure (CHF), Osteoarthritis (OA) Father Additional Family Medical History / Comment(s): FROM [place] Brother(s) Family Medical History: Cancer Additional Family Medical History / Comment(s): PARKINSONS DISEASE General Exam Limitations: no limitations General appearance: alert, in no apparent distress Head exam: Present: atraumatic, normocephalic, normal inspection Eye exam: Present: normal appearance, PERRL, EOMI. Absent: scleral icterus, conjunctival injection, periorbital swelling ENT exam: Present: normal exam, mucous membranes moist Neck exam: Present: normal inspection, full ROM. Absent: tenderness, meningismus, lymphadenopathy Respiratory exam: Present: normal lung sounds bilaterally. Absent: respiratory distress, wheezes, rales, rhonchi, stridor Cardiovascular Exam: Present: regular rate, normal rhythm, normal heart sounds. Absent: systolic murmur, diastolic murmur, rubs, gallop, clicks Extremities exam: Present: full ROM (Range of motions of all digits in the left hand), normal capillary refill (Capillary refill less than, radial pulse 2+), other (Patient has a partial dehiscence of the wound noted over the palmar aspect of the heel of the left hand down to subcutaneous tissue. Edges are separted.). Absent: normal inspection, tenderness, pedal edema, joint swelling, calf tenderness Course Vital Signs 07/30/19 08:56 Temperature 97.9 F Pulse Rate 58 L Respiratory 18 Rate Blood Pressure 94/55 O2 Sat by Pulse 95 Oximetry - Reevaluation(s) Reevaluation #1: 07/30/19 09:[address] Casi Ignacio's PA. Image was sent over perfect serve. Yarelis Restrepo will be coming to the ER to evaluate this he has since. Medical Decision Making - Medical Decision Making 68-year-old male with a past medical history of asthma, heart failure, hypertension presents for a chief complaint of wound dehiscence. Patient had surgery for carpal tunnel on July [address] Cody dlil. He should have his sutures removed a few days ago. Today he was twisting an ice cube tray when he felt his wound popped open and it was bleeding so he presented to the emergency department. On exam patient has about 3 cm of partial wound dehiscence to the subcutaneous tissues. Wound margins are not approximated at this time. Bleeding is controlled. No erythema, drainage, or evidence of infection. I did contact Dr cisco SALAZAR who came to the ER and evaluated the patient. Madelaine SALAZAR irrigated out the wound. She then bandaged it. She recommended cleansing the wound twice a day. She is going to see him on Jeniffer 3 and has this set up through the office. She requests that I write Keflex 4 times a day for 7 days to prevent infection. Patient will be discharged home however he will return if he has any worsening symptoms. Disposition Clinical Impression: Postoperative wound dehiscence Disposition: HOME SELF-CARE Condition: Good Instructions (If sedation given, give patient instructions): Laceration (ED) Additional Instructions: Please cleanse wound once to twice per day as directed by Madelaine. Please follow-up at your appointment on 08/03/2019. Take antibiotics as directed, prescription was sent to [facility]. Return to the emergency Department if you notice any worsening symptoms or signs of infection. Prescriptions: Cephalexin [Keflex] 500 mg PO Q6HR 7 Days #28 cap Is patient prescribed a controlled substance at d/c from ED?: No Referrals: Alison Leon MD [Primary Care Provider] - 1-2 days Time of Disposition: 11:21
[2019-07-30 11:36] VITALS: BP 101/80; PULSE 63; RESP 14
== END 2019-07-30 11:28 | disposition home or self-care (01) ==
LOC: EC 08:44
DX: T81.31XA Disruption of external operation (surgical) wound, not elsewhere classified, initial encounter (principal); E78.5 Hyperlipidemia, unspecified; I11.0 Hypertensive heart disease with heart failure; I50.9 Heart failure, unspecified; M19.90 Unspecified osteoarthritis, unspecified site; G47.30 Sleep apnea, unspecified; Z87.891 Personal history of nicotine dependence; Z79.01 Long term (current) use of anticoagulants; Z79.82 Long term (current) use of aspirin; Z79.899 Other long term (current) drug therapy; Z96.652 Presence of left artificial knee joint; Z99.81 Dependence on supplemental oxygen; Z99.89 Dependence on other enabling machines and devices; Z87.19 Personal history of other diseases of the digestive system; Y93.89 Activity, other specified
CPT/HCPCS: 99282

== ENCOUNTER 2019-08-19 10:21 | Emergency (ER) | payer MEDICARE, BC ==
[2019-08-19 10:48] VITALS: TEMP 97.6
[2019-08-19] MEDS ORDERED: SODIUM CHLORIDE 0.9% 1,000 ML IV STA (11:53)
[2019-08-19 13:13] LABS: Basophils % (A) 0 %; Eosinophils # (A) 0.2 k/uL (0-0.7); Eosinophils % (A) 2 %; HGB 13.3 gm/dL (13.0-17.5); Lymphocytes # (A) 1.5 k/uL (1.0-4.8); Lymphocytes % (A) 15 %; MCH 30.9 pg (25.0-35.0); MCHC 34.3 g/dL (31.0-37.0); MCV 90.1 fL (80.0-100.0); Mean Platelet Volume 6.4; Monocytes # (A) 0.6 k/uL (0-1.0); Monocytes % (A) 7 %; Neutrophils # (A) 7.3 k/uL (1.3-7.7); Neutrophils % (A) 75 %; Platelet Count 213 k/uL (150-450); RBC 4.32 m/uL (4.30-5.90); RDW 14.9 % (11.5-15.5); WBC 9.8 k/uL (3.8-10.6)
[2019-08-19 13:23] LABS: Albumin 3.7 g/dL (3.5-5.0); Calcium 8.9 mg/dL (8.4-10.2); Potassium 4.4 mmol/L (3.5-5.1); Total Bilirubin 0.6 mg/dL (0.2-1.3); Total Protein 6.6 g/dL (6.3-8.2)
[2019-08-19 13:32] LABS: Appearance,Urine Clear (Clear); Bilirubin,Urine Negative (Negative); Blood,Urine Negative (Negative); Color,Urine Yellow; Glucose,Urine (UA) Negative (Negative); Ketones,Urine Negative (Negative); Leukocyte Esterase,Urine Negative (Negative); Nitrite,Urine Negative (Negative); Protein,Urine Negative (Negative); Specific Gravity,Urine 1.013 (1.001-1.035); Urobilinogen,Urine <2.0 mg/dL (<2.0)
--- NOTE | 2019-08-19 13:36 | ED ---
Nausea/Vomiting/Diarrhea HPI - General Chief complaint: Nausea/Vomiting/Diarrhea Stated complaint: diarrhea, vomiting Time Seen by Provider: 08/19/19 11:33 Source: patient, RN notes reviewed, old records reviewed Mode of arrival: wheelchair Limitations: physical limitation - History of Present Illness Initial comments: Devyn is a 69-year-old male, presents emergency department today with 2. nausea vomiting and diarrhea intermittently for the past 2 weeks. Denies any antibiotic use. Denies any abdominal pain. Also complains of rectal pain. He states that he believes that he is having hemorrhoids and has perineal skin irritation. Patient denies any fevers or chills. - Related Data Home Medications Medication Instructions Recorded Confirmed Allopurinol [Zyloprim] 100 mg PO QAM 11/02/14 08/19/19 Aspirin EC [Ecotrin Low Dose] 81 mg PO DAILY 11/02/14 08/19/19 Metoprolol Tartrate 25 mg PO BID 11/02/14 08/19/19 Multivitamins, Thera [Multivitamin 1 tab PO QAM 11/02/14 08/19/19 (formulary)] Potassium Chloride [Klor-Con 40 meq PO BID 01/10/16 08/19/19 Packets] Furosemide [Lasix] 80 mg PO BID 02/09/16 08/19/19 Omeprazole [PriLOSEC] 40 mg PO QAM 04/04/17 08/19/19 Sertraline [Zoloft] 100 mg PO QAM 04/04/17 08/19/19 Atorvastatin [Lipitor] 20 mg PO HS 07/14/19 08/19/19 Cholecalciferol [Vitamin D3 (25 1,000 unit PO QAM 07/14/19 08/19/19 Mcg = 1000 Iu)] Gabapentin [Neurontin] 300 mg PO BID 07/14/19 08/19/19 Magnesium Oxide [Mag-Ox] 400 mg PO TID 07/14/19 08/19/19 Spironolactone [Aldactone] 25 mg PO QAM 07/14/19 08/19/19 Tamsulosin [Flomax] 0.4 mg PO DAILY 07/14/19 08/19/19 Warfarin [Coumadin] 5 mg PO DAILY 07/14/19 08/19/19 Ipratropium-Albuterol Nebulize 3 ml INHALATION RT-Q6H PRN 08/19/19 08/19/19 [Duoneb 0.5 mg-3 mg/3 ml Soln] Lisinopril [Zestril] 2.5 mg PO DAILY 08/19/19 08/19/19 Previous Rx's Medication Instructions Recorded Montelukast [Singulair] 10 mg PO HS #30 tab 11/07/14 Hydrocortisone [Anusol-Hc] 1 applic RECTAL TID #60 gm 08/19/19 Loperamide [Imodium] 2 mg PO QID #12 capsule 08/19/19 Allergies Allergy/AdvReac Type Severity Reaction Status Date / Time No Known Allergies Allergy Verified 08/19/19 11:49 Review of Systems ROS Statement: Those systems with pertinent positive or pertinent negative responses have been documented in the HPI. ROS Other: All systems not noted in ROS Statement are negative. Past Medical History Past Medical History: Asthma, Heart Failure, Hyperlipidemia, Hypertension, Musculoskeletal Disorder, Osteoarthritis (OA), Sleep Apnea/CPAP/BIPAP Additional Past Medical History / Comment(s): C PAP USES OXYGEN. FORGETFULLNESS. DARK STOOLS AND CURRENT DIARRHEA History of Any Multi-Drug Resistant Organisms: None Reported Past Surgical History: Orthopedic Surgery, Tonsillectomy Additional Past Surgical History / Comment(s): LEFT WRIST ORIF. TOTAL KNEE REPLACEMENT ON LEFT Past Anesthesia/Blood Transfusion Reactions: No Reported Reaction Additional Past Anesthesia/Blood Transfusion Reaction / Comment(s): Never had Past Psychological History: No Psychological Hx Reported Smoking Status: Former smoker Past Alcohol Use History: None Reported Past Drug Use History: None Reported - Past Family History Mother Family Medical History: Congestive Heart Failure (CHF), Osteoarthritis (OA) Father Additional Family Medical History / Comment(s): FROM [place] Brother(s) Family Medical History: Cancer Additional Family Medical History / Comment(s): PARKINSONS DISEASE General Exam - General Exam Comments Initial Comments: 69-year-old male. Patient is wheelchair dependent able transfer to bed. Morbidly obese. Patient appears in no acute distress. Limitations: physical limitation Head exam: Present: atraumatic, normocephalic, normal inspection Eye exam: Present: normal appearance, PERRL, EOMI. Absent: scleral icterus, conjunctival injection, periorbital swelling ENT exam: Present: normal exam, mucous membranes moist Neck exam: Present: normal inspection. Absent: tenderness, meningismus, lymphadenopathy Respiratory exam: Present: normal lung sounds bilaterally. Absent: respiratory distress, wheezes, rales, rhonchi, stridor Cardiovascular Exam: Present: regular rate, normal rhythm, normal heart sounds. Absent: systolic murmur, diastolic murmur, rubs, gallop, clicks Rectal exam: Present: normal rectal tone, hemorrhoids, other (old stool on skin on buttocks, skin irritation from stool ) Extremities exam: Present: normal inspection, full ROM, normal capillary refill. Absent: tenderness, pedal edema, joint swelling, calf tenderness Back exam: Present: normal inspection Neurological exam: Present: alert, oriented X3, CN II-XII intact Course Vital Signs 08/19/19 08/19/19 08/19/19 10:45 16:00 17:12 Temperature 97.6 F 97.6 F Pulse Rate 59 L 57 L 57 L Respiratory 16 18 18 Rate Blood Pressure 108/57 116/62 116/62 O2 Sat by Pulse 96 94 L 94 L Oximetry Medical Decision Making - Medical Decision Making 69-year-old male presents for short stay for evaluation stay for evaluation for rectal pain and intermittent diarrhea. Patient's abdominal cramping and pain. At this time patient's labwork was reviewed and unremarkable. His fecal occult was positive but he does have evidence of hemorrhoids. Discussed keeping his buttocks clean and dry as well as so washing with hemorrhoid waves. Patient will be given hemorrhoid cream. Patient's labs reviewed and unremarkable. CT abdomen shows no acute abnormalities first patient's symptoms. Discussed putting the Patient a short course of medication to stop diarrhea. All questions were answered and return parameters were discussed. - Lab Data Result diagrams: 08/19/19 12:57 08/19/19 12:57 Lab Results 08/19/19 08/19/19 08/19/19 Range/Units 12:57 12:57 13:24 WBC 9.8 (3.8-10.6) k/uL RBC 4.32 (4.30-5.90) m/uL Hgb 13.3 (13.0-17.5) gm/dL Hct 39.0 (39.0-53.0) % MCV 90.1 (80.0-100.0) fL MCH 30.9 (25.0-35.0) pg MCHC 34.3 (31.0-37.0) g/dL RDW 14.9 (11.5-15.5) % Plt Count 213 (150-450) k/uL Neutrophils % 75 % Lymphocytes % 15 % Monocytes % 7 % Eosinophils % 2 % Basophils % 0 % Neutrophils # 7.3 (1.3-7.7) k/uL Lymphocytes # 1.5 (1.0-4.8) k/uL Monocytes # 0.6 (0-1.0) k/uL Eosinophils # 0.2 (0-0.7) k/uL Basophils # 0.0 (0-0.2) k/uL Sodium 141 (137-145) mmol/L Potassium 4.4 (3.5-5.1) mmol/L Chloride 107 (98-107) mmol/L Carbon Dioxide 26 (22-30) mmol/L Anion Gap 8 mmol/L BUN 16 (9-20) mg/dL Creatinine 1.13 (0.66-1.25) mg/dL Est GFR (CKD-EPI)AfAm 77 (>60 ml/min/1.73 sqM) Est GFR (CKD-EPI)NonAf 66 (>60 ml/min/1.73 sqM) Glucose 98 (74-99) mg/dL Calcium 8.9 (8.4-10.2) mg/dL Total Bilirubin 0.6 (0.2-1.3) mg/dL AST 31 (17-59) U/L ALT 36 (21-72) U/L Alkaline Phosphatase 119 (38-126) U/L Total Protein 6.6 (6.3-8.2) g/dL Albumin 3.7 (3.5-5.0) g/dL Amylase 44 (30-110) U/L Lipase 29 (23-300) U/L Urine Color Yellow Urine Appearance Clear (Clear) Urine pH 6.0 (5.0-8.0) Ur Specific Sylvester 1.013 (1.001-1.035) Urine Protein Negative (Negative) Urine Glucose (UA) Negative (Negative) Urine Ketones Negative (Negative) Urine Blood Negative (Negative) Urine Nitrite Negative (Negative) Urine Bilirubin Negative (Negative) Urine Urobilinogen <2.0 (<2.0) mg/dL Ur Leukocyte Esterase Negative (Negative) Stool Occult Blood (Negative) 08/19/19 Range/Units 14:50 WBC (3.8-10.6) k/uL RBC (4.30-5.90) m/uL Hgb (13.0-17.5) gm/dL Hct (39.0-53.0) % MCV (80.0-100.0) fL MCH (25.0-35.0) pg MCHC (31.0-37.0) g/dL RDW (11.5-15.5) % Plt Count (150-450) k/uL Neutrophils % % Lymphocytes % % Monocytes % % Eosinophils % % Basophils % % Neutrophils # (1.3-7.7) k/uL Lymphocytes # (1.0-4.8) k/uL Monocytes # (0-1.0) k/uL Eosinophils # (0-0.7) k/uL Basophils # (0-0.2) k/uL Sodium (137-145) mmol/L Potassium (3.5-5.1) mmol/L Chloride (98-107) mmol/L Carbon Dioxide (22-30) mmol/L Anion Gap mmol/L BUN (9-20) mg/dL Creatinine (0.66-1.25) mg/dL Est GFR (CKD-EPI)AfAm (>60 ml/min/1.73 sqM) Est GFR (CKD-EPI)NonAf (>60 ml/min/1.73 sqM) Glucose (74-99) mg/dL Calcium (8.4-10.2) mg/dL Total Bilirubin (0.2-1.3) mg/dL AST (17-59) U/L ALT (21-72) U/L Alkaline Phosphatase (38-126) U/L Total Protein (6.3-8.2) g/dL Albumin (3.5-5.0) g/dL Amylase (30-110) U/L Lipase (23-300) U/L Urine Color Urine Appearance (Clear) Urine pH (5.0-8.0) Ur Specific Sylvester (1.001-1.035) Urine Protein (Negative) Urine Glucose (UA) (Negative) Urine Ketones (Negative) Urine Blood (Negative) Urine Nitrite (Negative) Urine Bilirubin (Negative) Urine Urobilinogen (<2.0) mg/dL Ur Leukocyte Esterase (Negative) Stool Occult Blood Positive (Negative) - Radiology Data Radiology results: report reviewed CT shows no significant abnormality. Patient's symptoms. Nonobstructive nephrolithiasis is noted. Additional findings above with degenerative disc diseases. Right kidney shows an upper pole exophytic cyst measuring 4.2 cm. Disposition Clinical Impression: Diarrhea, Hemorrhoid Disposition: HOME SELF-CARE Condition: Good Instructions (If sedation given, give patient instructions): Acute Nausea and Vomiting in Children (ED), Acute Nausea and Vomiting (ED) Additional Instructions: Please use medication as discussed. Please follow up with family doctor if symptoms have not improved over the next two days. Please return to the emergency room if your symptoms increase or worsen or for any other concerns. Prescriptions: Hydrocortisone [Anusol-Hc] 1 applic RECTAL TID #60 gm Loperamide [Imodium] 2 mg PO QID #12 capsule Is patient prescribed a controlled substance at d/c from ED?: No Referrals: Alison Leon MD [Primary Care Provider] - 1-2 days Time of Disposition: 16:10
--- NOTE | 2019-08-19 15:48 | CT ---
EXAMINATION TYPE: CT abdomen pelvis w con DATE OF EXAM: 08/19/2019 COMPARISON: Prior CT 05/09/2017 HISTORY: diarrhea CT DLP: 2201.4 mGycm Automated exposure control for dose reduction was used. TECHNIQUE: Helical acquisition of images from the lung bases through the pelvis have been completed. CONTRAST: Performed without Oral Contrast and with IV Contrast, patient injected with 100 mL of Isovue 300. FINDINGS: There is some motion on the exam. LUNG BASES: No significant abnormality is appreciated. AORTA: No significant abnormality is appreciated. LIVER/GB: No significant abnormality is appreciated. PANCREAS: No significant abnormality is seen. SPLEEN: No significant abnormality is seen. ADRENALS: No significant abnormality is seen. KIDNEYS: Punctate nonobstructive calculus present at the midpole the left kidney. Right kidney shows an upper pole exophytic cyst measuring 4.2 cm. REPRODUCTIVE ORGANS: No significant abnormality is seen BOWEL: There is some diverticular changes associated with the colon. The appendix is normal. FREE AIR: No Free Air visible. ASCITES: None visible. PELVIC ADENOPATHY: None visualized. RETROPERITONEAL ADENOPATHY: No Retroperitoneal Adenopathy visible. URINARY BLADDER: No significant abnormality is seen. OSSEOUS STRUCTURES: No significant abnormality is seen. Degenerative disc changes are noted especial ly in the lumbar spine. IMPRESSION: No significant abnormality evident to account for patient's symptoms. Nonobstructive left nephrolithi asis and additional findings above.
[2019-08-19 16:01] VITALS: BP 116/62; PULSE 57; RESP 18
== END 2019-08-19 17:12 | disposition home or self-care (01) ==
LOC: EC 10:21
DX: K64.9 Unspecified hemorrhoids (principal); R19.7 Diarrhea, unspecified; R11.2 Nausea with vomiting, unspecified; E66.01 Morbid (severe) obesity due to excess calories; I11.0 Hypertensive heart disease with heart failure; I50.9 Heart failure, unspecified; E78.5 Hyperlipidemia, unspecified; M19.90 Unspecified osteoarthritis, unspecified site; G47.30 Sleep apnea, unspecified; Z79.01 Long term (current) use of anticoagulants; Z79.82 Long term (current) use of aspirin; Z79.899 Other long term (current) drug therapy; Z68.41 Body mass index [BMI] 40.0-44.9, adult; Z99.89 Dependence on other enabling machines and devices; Z99.81 Dependence on supplemental oxygen; Z99.3 Dependence on wheelchair; Z87.891 Personal history of nicotine dependence; Z96.652 Presence of left artificial knee joint
CPT/HCPCS: 99285; 96360; 96361 ×2; 36415; 80053; 82150; 83690; 85025; 82272; 81003; 74177; Q9967

== ENCOUNTER 2019-12-06 06:25 | Day surgery (SDC) | payer MEDICARE, BC ==
[2019-11-30 09:47] VITALS: BMI 41.5
[~2019-12-06 06:25] MED LIST changes: -BUPIVACAINE (PF) 0.5% 30 ML VIAL SQ ONE; -DEXAMETHASONE SOD PHOSPHATE 10 MG/ML 1 ML VIAL IV ONE; -HYDROmorphone 0.5 MG/0.5 ML SYRINGE IVP PRN; -KETAMINE 10 MG/ML 20 ML VIAL ONE; -LACTATED RINGERS 1,000 ML IV ONE; -LIDOCAINE 1% INJ 10MG/ML (20 ML MDV) ONE; -LIDOCAINE 2% INJ 20 MG/ML SQ ONE; -MIDAZOLAM (PF) 2 MG/2 ML VIAL IVP ONE; -MIDAZOLAM 2 MG/2 ML VIAL IV PRN; -MIDAZOLAM 2 MG/2 ML VIAL ONE; -ONDANSETRON 4 MG/2 ML VIAL IVP ONE; -PROPOFOL 10 MG/ML 20 ML VIAL IV ONE; -ROPIVACAINE 5 MG/ML 30 ML VIAL ONE; -SCOPOLAMINE 1.5MG/72HR PATCH TRANSDERM ONE; -ceFAZolin 3 GM in SODIUM CHLORIDE 0.9% 100 ML IVPB ONE; -fentaNYL (PF) 50 MCG/ML 2 ML AMP IVP ONE; -fentaNYL (PF) 50 MCG/ML 2 ML AMP ONE
[2019-12-06 07:31] VITALS: RESP 16; TEMP 98.9
[2019-12-06] MEDS ORDERED: PROPOFOL 10 MG/ML 20 ML VIAL IV ONE (08:26)
[2019-12-06] MEDS ORDERED: KETAMINE 10 MG/ML 20 ML VIAL ONE (08:26)
--- NOTE | 2019-12-06 08:26 | P.GSHP ---
History of Present Illness H&P Date: 12/06/19 Chief Complaint: Colon cancer screening history of polyps Patient here today for colonoscopy. Last colonoscopy 2014. Had a tubular adenoma at that time. No bowel complaints currently. Past Medical History Past Medical History: Asthma, Chest Pain / Angina, GERD/Reflux, Hyperlipidemia, Hypertension, Osteoarthritis (OA), Pneumonia, Sleep Apnea/CPAP/BIPAP Additional Past Medical History / Comment(s): uses oxygen at night 2L, gout, in wheelchair or walker due to pain in left leg, poor circulation in legs(takes coumadin for) History of Any Multi-Drug Resistant Organisms: None Reported Past Surgical History: Orthopedic Surgery, Tonsillectomy Additional Past Surgical History / Comment(s): LEFT WRIST ORIF, LEFT KNEE REPLACEMENT, Past Anesthesia/Blood Transfusion Reactions: No Reported Reaction Additional Past Anesthesia/Blood Transfusion Reaction / Comment(s): . Smoking Status: Former smoker - Past Family History Mother Family Medical History: Congestive Heart Failure (CHF), Osteoarthritis (OA) Father Additional Family Medical History / Comment(s): FROM [place] Brother(s) Family Medical History: Cancer Additional Family Medical History / Comment(s): . Sister(s) Family Medical History: Deep Vein Thrombosis (DVT) Medications and Allergies Home Medications Medication Instructions Recorded Confirmed Type Allopurinol [Zyloprim] 100 mg PO QAM 11/02/14 12/06/19 History Aspirin EC [Ecotrin Low Dose] 81 mg PO HS 11/02/14 11/30/19 History Metoprolol Tartrate 25 mg PO BID 11/02/14 12/06/19 History Montelukast [Singulair] 10 mg PO HS #30 tab 11/07/14 12/06/19 Rx Potassium Chloride [Klor-Con 40 meq PO BID 01/10/16 12/06/19 History Packets] Furosemide [Lasix] 80 mg PO BID 02/09/16 12/06/19 History Omeprazole [PriLOSEC] 40 mg PO QAM 04/04/17 12/06/19 History Sertraline [Zoloft] 100 mg PO QAM 04/04/17 12/06/19 History Atorvastatin [Lipitor] 20 mg PO DAILY 07/14/19 12/06/19 History Cholecalciferol [Vitamin D3 (25 1,000 unit PO QAM 07/14/19 12/06/19 History Mcg = 1000 Iu)] Gabapentin [Neurontin] 600 mg PO QAM 07/14/19 12/06/19 History Magnesium Oxide [Mag-Ox] 800 mg PO BID 07/14/19 12/06/19 History Spironolactone [Aldactone] 25 mg PO QAM 07/14/19 12/06/19 History Tamsulosin [Flomax] 0.4 mg PO HS 07/14/19 12/06/19 History Warfarin [Coumadin] 5 mg PO SUMOWETHFRSA 07/14/19 11/30/19 History Ipratropium-Albuterol Nebulize 3 ml INHALATION BID 08/19/19 12/06/19 History [Duoneb 0.5 mg-3 mg/3 ml Soln] Lisinopril [Zestril] 2.5 mg PO HS 08/19/19 12/06/19 History Gabapentin [Neurontin] 300 mg PO HS 11/30/19 12/06/19 History Loperamide [Imodium] 2 mg PO QID PRN 11/30/19 12/06/19 History Warfarin [Coumadin] 7.5 mg PO TU 11/30/19 11/30/19 History Allergies Allergy/AdvReac Type Severity Reaction Status Date / Time No Known Allergies Allergy Verified 12/06/19 07:32 Surgical - Exam Vital Signs Temp Pulse Resp BP Pulse Ox 98.9 F 67 16 112/55 93 L 12/06/19 07:26 12/06/19 07:26 12/06/19 07:26 12/06/19 07:26 12/06/19 07:26 Physical exam: General: Well-developed, well-nourished HEENT: Normocephalic, sclerae nonicteric Abdomen: Nontender, nondistended Extremities: No edema Neuro: Alert and oriented Assessment and Plan (1) Colon cancer screening Narrative/Plan: Will proceed with colonoscopy at this time. Current Visit: Yes Status: Acute Code(s): Z12.11 - ENCOUNTER FOR SCREENING FOR MALIGNANT NEOPLASM OF COLON SNOMED Code(s): 813745768
--- NOTE | 2019-12-06 08:48 | P.PCN ---
Date of Procedure: 12/06/19 Procedure(s) Performed: PREOPERATIVE DIAGNOSIS: Colon cancer screening history of polyps POSTOPERATIVE DIAGNOSIS: Diverticulosis, poor prep PROCEDURE: Colonoscopy ANESTHESIA: MAC SURGEON: Salvatore Che M.D. SPECIMENS: None ENDOSCOPIC PROCEDURE: The patient was placed on the endoscopy table in the left decubitus position. The Olympus colonoscope was inserted into the anus and passed under direct visualization to the base of the cecum. The patient's prep on the right side of his colon was suboptimal. No large polyps or neoplastic changes were noted. I could not visualize the appendiceal orifice because of adherent stool. From that point the scope was slowly withdrawn. No abnormalities were identified throughout the cecum, ascending, transverse, descending, sigmoid and rectum. There was mild left-sided diverticulosis noted. Digital rectal examination was normal. The patient was taken to the recovery room in stable condition per anesthesia guidelines. RECOMMENDATIONS: Increase fiber. Follow-up colonoscopy in 5 years.
[2019-12-06 08:56] VITALS: PULSE 64
[2019-12-06 09:06] VITALS: BP 117/68
== END 2019-12-06 09:19 | disposition home or self-care (01) ==
LOC: ORWHC2ENDO 06:25
PROVIDERS: ATTEND Surgery
DX: Z12.11 Encounter for screening for malignant neoplasm of colon (principal); Z86.010 Personal history of colon polyps; K57.30 Diverticulosis of large intestine without perforation or abscess without bleeding; I10 Essential (primary) hypertension; N40.0 Benign prostatic hyperplasia without lower urinary tract symptoms; K21.9 Gastro-esophageal reflux disease without esophagitis; J45.909 Unspecified asthma, uncomplicated; E78.5 Hyperlipidemia, unspecified; E66.9 Obesity, unspecified; M19.90 Unspecified osteoarthritis, unspecified site; Z87.01 Personal history of pneumonia (recurrent); G47.30 Sleep apnea, unspecified; Z99.89 Dependence on other enabling machines and devices; Z99.81 Dependence on supplemental oxygen; Z99.3 Dependence on wheelchair; Z79.01 Long term (current) use of anticoagulants; Z90.89 Acquired absence of other organs; Z98.890 Other specified postprocedural states; Z96.652 Presence of left artificial knee joint; Z87.891 Personal history of nicotine dependence; Z82.49 Family history of ischemic heart disease and other diseases of the circulatory system; Z79.82 Long term (current) use of aspirin; Z79.899 Other long term (current) drug therapy; Z79.02 Long term (current) use of antithrombotics/antiplatelets; Z68.42 Body mass index [BMI] 45.0-49.9, adult; M10.9 Gout, unspecified
CPT/HCPCS: J2704; G0105; 45378

== ENCOUNTER → 2020-04-14 | Outpatient (CLI) | payer MEDICARE, BC ==
[2020-04-14 15:04] LABS: Basophils % (A) 0 %; Eosinophils % (A) 0 %; HGB 14.5 gm/dL (13.0-17.5); INR 3.8 (<1.2); Lymphocytes # (A) 1.2 k/uL (1.0-4.8); Lymphocytes % (A) 7 %; MCH 30.1 pg (25.0-35.0); MCV 91.4 fL (80.0-100.0); Mean Platelet Volume 6.9; Monocytes # (A) 0.8 k/uL (0-1.0); Monocytes % (A) 5 %; Neutrophils # (A) 15.5 k/uL (1.3-7.7); Neutrophils % (A) 87 %; Platelet Count 241 k/uL (150-450); Prothrombin Time 37.7 sec (9.0-12.0); RBC 4.81 m/uL (4.30-5.90); RDW 15.1 % (11.5-15.5); WBC 17.9 k/uL (3.8-10.6)
[2020-04-14 19:50] LABS: African American GFR (CKD) 54.3 (60.0-200.0); Albumin 4.5 g/dL (3.80-4.90); Albumin/Globulin Ratio 1.88 (1.60-3.17); Anion Gap 8.3 mmol/L (4.00-12.00); BUN/Creat Ratio 21.33 Ratio (12.00-20.00); Calcium 9.4 mg/dL (8.7-10.3); Carbon Dioxide 28.7 mmol/L (21.6-31.8); Globulin 2.4 g/dL (1.6-3.3); Non-African American GFR(CKD) 46.8 (60.0-200.0); Potassium 4.9 mmol/L (3.5-5.5); Total Bilirubin 0.3 mg/dL (0.2-1.2); Total Protein 6.9 g/dL (6.2-8.2); Uric Acid 7.8 mg/dL (3.7-8.7)
== END | disposition home or self-care (01) ==
LOC: LABMAIN 14:25
PROVIDERS: ATTEND Internal Medicine
DX: I10 Essential (primary) hypertension (principal); E78.2 Mixed hyperlipidemia; M10.9 Gout, unspecified; I48.0 Paroxysmal atrial fibrillation
CPT/HCPCS: 36415; 80053; 84443; 84550; 85025; 85610

== ENCOUNTER → 2020-12-13 | Outpatient (CLI) | payer MEDICARE, BC ==
--- NOTE | 2020-12-20 11:09 | P.ARTDOP ---
Arterial Doppler LOWER EXTREMITY ARTERIAL DOPPLER: DATE OF SERVICE: 12/13/2019 Reason for study: Bilateral leg swelling. Doppler waveforms: Multiphasic bilaterally throughout. Pulse volume recording: []. Pressure gradients: None. Ankle-brachial indices: Greater than 1 bilaterally. Toe brachial indices: [] on the right, [] on the left Impression: Normal study.
== END | disposition home or self-care (01) ==
LOC: RADUSWWP 10:26
PROVIDERS: ATTEND Internal Medicine
DX: I73.9 Peripheral vascular disease, unspecified (principal)
CPT/HCPCS: 93922

== ENCOUNTER → 2021-01-22 | Outpatient (CLI) | payer MEDICARE, BC ==
[2021-01-22 15:00] LABS: Creatinine,Urine Random 33.1 mg/dL; Protein/Creatinine Ratio,Urine 0.332
[2021-01-22 15:02] LABS: Appearance,Urine Clear (Clear); Bacteria,Urine Occasional /hpf; Bilirubin,Urine Negative (Negative); Blood,Urine Negative (Negative); Color,Urine Light Yellow; Glucose,Urine (UA) Negative (Negative); Ketones,Urine Negative (Negative); Leukocyte Esterase,Urine Trace (Negative); Mucus,Urine Rare /hpf; Nitrite,Urine Negative (Negative); PH, Urine 5.5 (5.0-8.0); Protein,Urine Negative (Negative); RBC,Urine <1 /hpf (0-5); Specific Gravity,Urine 1.008 (1.001-1.035); Squamous Epithelial Cell,Urine <1 /hpf (0-4); Urobilinogen,Urine <2.0 mg/dL (<2.0); WBC,Urine 5 /hpf (0-5)
[2021-01-22 18:55] LABS: HCT 46.2 % (39.6-50.0); HGB 14.2 g/dL (13.0-17.0); MCH 26.5 pg (27.0-32.0); MCHC 30.7 g/dL (32.0-37.0); MCV 86.4 fL (80.0-97.0); Mean Platelet Volume 9.1 fL (9.5-12.2); Platelet Count 244 X 10*3/uL (140-440); RBC 5.35 X 10*6/uL (4.40-5.60); RDW 17.7 % (11.5-14.5); WBC 11.29 X 10*3/uL (4.50-10.00)
[2021-01-22 20:14] LABS: % Iron Saturation 7.55 (15.00-50.00); African American GFR (CKD) 78.4 (60.0-200.0); Albumin 4.9 g/dL (3.80-4.90); Albumin/Globulin Ratio 2.23 (1.60-3.17); Anion Gap 9.6 mmol/L (4.00-12.00); BUN/Creat Ratio 17.27 Ratio (12.00-20.00); Calcium 9.1 mg/dL (8.7-10.3); Carbon Dioxide 28.4 mmol/L (21.6-31.8); Globulin 2.2 g/dL (1.6-3.3); Magnesium 1.9 mg/dL (1.5-2.4); Non-African American GFR(CKD) 67.7 (60.0-200.0); Potassium 3.8 mmol/L (3.5-5.5); Total Bilirubin 0.6 mg/dL (0.2-1.2); Total Protein 7.1 g/dL (6.2-8.2)
[2021-01-22 20:15] LABS: Phosphorus 3.7 mg/dL (2.4-5.1)
[2021-01-22 21:36] LABS: Ferritin 37.8 ng/mL (22.0-322.0)
[2021-01-22 23:48] LABS: INR 6.21 (0.90-1.11); Partial Thromboplastin Time 70.2 sec (23.5-31.0); Prothrombin Time 60.1 sec (9.9-11.9)
== END | disposition home or self-care (01) ==
LOC: LABWHC1 13:48
PROVIDERS: ATTEND Nurse Practitioner Family
DX: E55.9 Vitamin D deficiency, unspecified (principal); E21.3 Hyperparathyroidism, unspecified; D64.9 Anemia, unspecified; I50.32 Chronic diastolic (congestive) heart failure; I48.0 Paroxysmal atrial fibrillation; N17.0 Acute kidney failure with tubular necrosis; N39.0 Urinary tract infection, site not specified; R80.9 Proteinuria, unspecified
CPT/HCPCS: 36415; 80053; 81001; 82306; 82570; 82728; 83540; 83550; 83735; 83970; 84100; 84156; 85027; 85610; 85730

== ENCOUNTER → 2021-02-26 | Outpatient (CLI) | payer MEDICARE, BC ==
--- NOTE | 2021-02-26 15:33 | US ---
EXAMINATION TYPE: US kidneys/renal and bladder DATE OF EXAM: 02/26/2021 COMPARISON: NONE CLINICAL HISTORY: 70-year-old male N17.0. renal failure TECHNIQUE: Multiple sonographic images of the kidneys and bladder are obtained. FINDINGS: EXAM MEASUREMENTS: Right Kidney: 11.1 x 4.9 x 4.7 cm Left Kidney: 11.8 x 6.0 x 4.5 cm Right Kidney: Upper pole cyst measures 3.2 x 3.8 x 3.2cm . No hydronephrosis. Left Kidney: no evidence of hydronephrosis Bladder: Underdistention limits its evaluation. Bilateral Jets seen: no IMPRESSION: No hydronephrosis. A benign 3.8 cm upper pole left renal cyst.
== END | disposition home or self-care (01) ==
LOC: RADUSWWP 13:16
PROVIDERS: ATTEND Internal Medicine Nephrology
DX: N28.1 Cyst of kidney, acquired (principal)
CPT/HCPCS: 76770

== ENCOUNTER → 2021-05-07 | Outpatient (CLI) | payer MEDICARE, BC ==
[2021-05-07 13:54] LABS: Appearance,Urine Clear (Clear); Bacteria,Urine Many /hpf; Bilirubin,Urine Negative (Negative); Blood,Urine Negative (Negative); Color,Urine Yellow; Glucose,Urine (UA) Negative (Negative); Ketones,Urine Negative (Negative); Leukocyte Esterase,Urine Trace (Negative); Nitrite,Urine Negative (Negative); Protein,Urine Negative (Negative); Specific Gravity,Urine 1.012 (1.001-1.035); Squamous Epithelial Cell,Urine <1 /hpf (0-4); Urobilinogen,Urine <2.0 mg/dL (<2.0); WBC,Urine 3 /hpf (0-5)
[2021-05-07 14:04] LABS: Creatinine,Urine Random 76.2 mg/dL; Protein/Creatinine Ratio,Urine 0.131
[2021-05-07 23:19] LABS: HCT 44.2 % (39.6-50.0); HGB 13.7 g/dL (13.0-17.0); MCH 26.4 pg (27.0-32.0); MCV 85.3 fL (80.0-97.0); Mean Platelet Volume 9.8 fL (9.5-12.2); Platelet Count 259 X 10*3/uL (140-440); RBC 5.18 X 10*6/uL (4.40-5.60); WBC 13.98 X 10*3/uL (4.50-10.00)
[2021-05-08 01:40] LABS: Ferritin 39.1 ng/mL (22.0-322.0)
[2021-05-08 01:49] LABS: % Iron Saturation 7.13 (15.00-50.00); African American GFR (CKD) 40.5 (60.0-200.0); Albumin 4.6 g/dL (3.80-4.90); Albumin/Globulin Ratio 1.84 (1.60-3.17); Anion Gap 12.9 mmol/L (4.00-12.00); BUN/Creat Ratio 30.53 Ratio (12.00-20.00); Calcium 9.4 mg/dL (8.7-10.3); Carbon Dioxide 31.1 mmol/L (21.6-31.8); Globulin 2.5 g/dL (1.6-3.3); Magnesium 1.8 mg/dL (1.5-2.4); Non-African American GFR(CKD) 34.9 (60.0-200.0); Phosphorus 4.3 mg/dL (2.4-5.1); Potassium 4.4 mmol/L (3.5-5.5); Total Bilirubin 0.6 mg/dL (0.3-1.2); Total Protein 7.1 g/dL (6.2-8.2)
== END | disposition home or self-care (01) ==
LOC: LABWHC1 12:46
PROVIDERS: ATTEND Nurse Practitioner Family
DX: N17.0 Acute kidney failure with tubular necrosis (principal); D64.9 Anemia, unspecified; R80.9 Proteinuria, unspecified; N39.0 Urinary tract infection, site not specified; N25.81 Secondary hyperparathyroidism of renal origin; E55.9 Vitamin D deficiency, unspecified
CPT/HCPCS: 36415; 80053; 81001; 82306; 82570; 82728; 83540; 83550; 83735; 83970; 84100; 84156; 85027

== ENCOUNTER → 2022-05-25 | Outpatient (CLI) | payer MEDICARE, BC ==
--- NOTE | 2022-05-26 08:19 | MR ---
EXAMINATION TYPE: MR pancreas / mrcp wo/w con DATE OF EXAM: 05/25/2022 COMPARISON: None HISTORY: Pancreatic mass CONTRAST: Standard multiplanar, multisequence MRI departmental protocol images were obtained without contrast a nd with 11 mL intravenous Gadavist contrast. Examination is somewhat limited given patient motion du ring the course of the examination. FINDINGS: There is a well-circumscribed cystic mass noted at the pancreatic tail which measures 1.9 x 1.9 cm. T here is no evidence for pathologic enhancement. This is felt to reflect a pseudocyst. Pancreas is oth erwise a unremarkable and free of additional mass. No inflammatory process seen. No dilatation of the pancreatic duct. There is mild hepatic steatosis. No intrahepatic mass lesion is seen. The gallbladder and common bile duct have a normal appearance without evidence for cholelithiasis or dilatation. No wall thickening or pericholecystic fluid. The spleen is enlarged with craniocaudal measurement of 16.5 cm. No adrenal masses are seen. Upper po le right sided renal cyst measures 2.7 cm. No solid renal mass is detected. The bowel aorta as visualized is of normal caliber. No evidence for adenopathy. IMPRESSION: 1. Pancreatic pseudocyst. 2. Splenomegaly. 3. Mild hepatic steatosis.
== END | disposition home or self-care (01) ==
LOC: RADMRIMAIN 10:57
PROVIDERS: ATTEND Internal Medicine
DX: K86.89 Other specified diseases of pancreas (principal)
CPT/HCPCS: 74183; A9585

== ENCOUNTER 2023-03-26 11:37 | Inpatient (IN) | payer MEDICARE, BC ==
[2023-03-26] MEDS ORDERED: FUROSEMIDE 10 MG/ML 4 ML VIAL IV STA (12:30)
[2023-03-26] MEDS ORDERED: IPRATROPIUM-ALBUTEROL 3 ML NEB INHALATION STA (12:30)
[2023-03-26] MEDS ORDERED: VANCOMYCIN IV PER PHARMACY 1 EACH MISC MISCELLANE PRN (12:31)
[2023-03-26] MEDS ORDERED: VANCOMYCIN 2,000 MG in SODIUM CHLORIDE 0.9% 500 ML 500 ML IVPB STA (12:35)
[2023-03-26 12:47] LABS: Anisocytosis Slight; Basophils % (A) 0 %; Eosinophils % (A) 0 %; HCT 32.8 % (39.0-53.0); HGB 10.4 gm/dL (13.0-17.5); Hypochromasia Slight; Lymphocytes # (A) 0.6 k/uL (1.0-4.8); Lymphocytes % (A) 6 %; MCH 26.9 pg (25.0-35.0); MCHC 31.6 g/dL (31.0-37.0); MCV 84.9 fL (80.0-100.0); Mean Platelet Volume 7.4; Monocytes # (A) 0.4 k/uL (0-1.0); Monocytes % (A) 3 %; Neutrophils # (A) 10.4 k/uL (1.3-7.7); Neutrophils % (A) 90 %; Platelet Count 136 k/uL (150-450); RBC 3.86 m/uL (4.30-5.90); RDW 17.4 % (11.5-15.5); WBC 11.5 k/uL (3.8-10.6)
[2023-03-26 12:51] LABS: Albumin 3.4 g/dL (3.5-5.0); Calcium 8.2 mg/dL (8.4-10.2); Magnesium 2.2 mg/dL (1.6-2.3); Potassium 4.3 mmol/L (3.5-5.1); Total Bilirubin 1.2 mg/dL (0.2-1.3); Total Protein 6.2 g/dL (6.3-8.2)
--- NOTE | 2023-03-26 12:53 | ED ---
General Adult HPI - General Chief complaint: Shortness of Breath Stated complaint: EDIE Time Seen by Provider: 03/26/23 12:20 Source: EMS, RN notes reviewed, old records reviewed Mode of arrival: EMS Limitations: no limitations - History of Present Illness Initial comments: Patient is a 72-year-old male with past medical history remarkable for asthma, CHF, hypertension, cardiac disease on home oxygen nightly, as well as Lasix at home and Coumadin who presents emergency Department complaining of worsening lower extremity edema as well as worsening shortness of breath. Patient also has an open wound on his right patel. The symptoms all began over the last week. States he Was admitted 2 weeks ago to another hospital where he states they decreased his Lasix dosing. Since that time he has been having worsening lower extremity edema, as well as shortness of breath. Denies chest pain or abdominal pain or nausea, vomiting, diarrhea. Denies sore throat. Endorses some orthopnea. Denies PND. Endorses exertional dyspnea. Denies cough. Denies fever. Patient is uncertain what his medications are otherwise. His no other acute complaints at this time. Presents for further evaluation.Patient overall appears to be a poor historian. - Related Data Home Medications Medication Instructions Recorded Confirmed Metoprolol Tartrate 25 mg PO BID 11/02/14 03/26/23 allopurinoL [Zyloprim] 200 mg PO DAILY 11/02/14 03/26/23 Sertraline [Zoloft] 100 mg PO DAILY 04/04/17 03/26/23 Atorvastatin [Lipitor] 20 mg PO DAILY 07/14/19 03/26/23 Spironolactone [Aldactone] 25 mg PO DAILY 07/14/19 03/26/23 Tamsulosin [Flomax] 0.4 mg PO DAILY 07/14/19 03/26/23 Ipratropium-Albuterol Nebulize 3 ml INHALATION RT-Q6H 08/19/19 03/26/23 [Duoneb 0.5 mg-3 mg/3 ml Soln] Gabapentin [Neurontin] 300 mg PO HS 11/30/19 03/26/23 Acetaminophen Tab [Tylenol Tab] 500 mg PO Q6H PRN 03/26/23 03/26/23 Benzonatate [Tessalon Perles] 100 mg PO TID PRN 03/26/23 03/26/23 Cholecalciferol [Vitamin D3 (25 50 mcg PO DAILY 03/26/23 03/26/23 Mcg = 1000 Iu)] Empagliflozin [Jardiance] 10 mg PO DAILY 03/26/23 03/26/23 Pantoprazole [Protonix] 40 mg PO DAILY 03/26/23 03/26/23 Potassium Chloride ER [K-Dur 20] 20 meq PO BID 03/26/23 03/26/23 Simethicone Chew [Mylicon Chew] 80 mg PO TID PRN 03/26/23 03/26/23 Warfarin Sodium 4 mg PO DAILY 03/26/23 03/26/23 predniSONE [Deltasone] See Taper PO DIRECTED 03/26/23 03/26/23 tadalafiL 5 mg PO DAILY PRN 03/26/23 03/26/23 Previous Rx's Medication Instructions Recorded Montelukast [Singulair] 10 mg PO HS #30 tab 11/07/14 Allergies Allergy/AdvReac Type Severity Reaction Status Date / Time No Known Allergies Allergy Verified 03/26/23 13:12 Review of Systems ROS Statement: Those systems with pertinent positive or pertinent negative responses have been documented in the HPI. Review of Systems: CONST: Denies fever EYES: Denies blurry vision ENT: Denies nasal congestion C/V: Denies Chest pain RESP: Endorses shortness of breath GI: Denies abdominal pain : Denies dysuria SKIN: Endorses open wound on the anterior right patel MSK: Endorses leg edema NEURO: Denies headache ROS Other: All systems not noted in ROS Statement are negative. Past Medical History Past Medical History: Asthma, Chest Pain / Angina, GERD/Reflux, Hyperlipidemia, Hypertension, Osteoarthritis (OA), Pneumonia, Sleep Apnea/CPAP/BIPAP Additional Past Medical History / Comment(s): uses oxygen at night 2L, gout, in wheelchair or walker due to pain in left leg, poor circulation in legs(takes coumadin for) History of Any Multi-Drug Resistant Organisms: None Reported Past Surgical History: Orthopedic Surgery, Tonsillectomy Additional Past Surgical History / Comment(s): LEFT WRIST ORIF, LEFT KNEE REPLACEMENT, Past Anesthesia/Blood Transfusion Reactions: No Reported Reaction Additional Past Anesthesia/Blood Transfusion Reaction / Comment(s): . Past Psychological History: No Psychological Hx Reported Smoking Status: Former smoker Past Alcohol Use History: None Reported Past Drug Use History: None Reported - Past Family History Mother Family Medical History: Congestive Heart Failure (CHF), Osteoarthritis (OA) Father Additional Family Medical History / Comment(s): FROM [place] Brother(s) Family Medical History: Cancer Additional Family Medical History / Comment(s): . Sister(s) Family Medical History: Deep Vein Thrombosis (DVT) General Exam - General Exam Comments Initial Comments: General: Appears in no acute distress. HEAD: Normal with no signs of head trauma. EYES: PERRLA, EOMI, conjunctiva normal, no discharge. ENT: Hearing grossly intact, normal oropharynx. RESPIRATORY: Patient has mild adnexal for wheezing bilaterally. No significant rales or rhonchi. No increased work of breathing. Mild hypoxia on room air, down to 90-91%. Apparently is only on oxygen at night. Has been needing it during the day as well. C/V: Regular rate and rhythm. S1 and S2 auscultated, significant bilateral symmetrical pitting edema, peripheral pulses 2+ and intact throughout ABD: Abd is soft, nontender, nondistended EXT: Normal range of motion, no obvious deformity SKIN: Open wound over the anterior right patel with surrounding erythema. Clear serous discharge. NEURO: Alert and oriented 4. Limitations: no limitations Course Vital Signs 03/26/23 03/26/23 03/26/23 11:40 13:14 13:22 Temperature 97.8 F Pulse Rate 60 55 L 56 L Respiratory 18 18 18 Rate Blood Pressure 106/53 O2 Sat by Pulse 94 L Oximetry 03/26/23 03/26/23 03/26/23 14:53 15:04 15:55 Temperature Pulse Rate 56 L 61 Respiratory 16 20 Rate Blood Pressure 116/65 96/54 O2 Sat by Pulse 97 89 L 95 Oximetry 03/26/23 16:51 Temperature Pulse Rate 60 Respiratory 18 Rate Blood Pressure 107/71 O2 Sat by Pulse 54 L Oximetry Medical Decision Making - Medical Decision Making Was pt. sent in by a medical professional or institution (, PA, DOCK ASSOCIATE, urgent care, hospital, or [facility]...) When possible be specific @ -No Did you speak to anyone other than the patient for history (EMS, parent, family, police, friend...)? What history was obtained from this source @ -No Did you review nursing and triage notes (agree or disagree)? Why? @ -I reviewed and agree with nursing and triage notes Were old charts reviewed (outside hosp., previous admission, EMS record, old EKG, old radiological studies, urgent care reports/EKG's, [facility] records)? Report findings @ -Old charts including EKGs from 2016 reviewed. Differential Diagnosis (chest pain, altered mental status, abdominal pain women, abdominal pain men, vaginal bleeding, weakness, fever, dyspnea, syncope, headache, dizziness, GI bleed, back pain, seizure, CVA, palpatations, mental health, musculoskeletal)? @ -Differential Dyspnea: Coronary syndrome, arrhythmia, tamponade, asthma, COPD, pulmonary embolism, pneumonia, pneumothorax, pulmonary effusion, anaphylaxis, diabetic ketoacidosis, flailed chest, pulmonary contusion, diaphragmatic rupture, anemia, neuromuscular, this is not meant to be an all-inclusive list. EKG interpreted by me (3pts min.). @ -As above X-rays interpreted by me (1pt min.). @ -Chest x-ray shows findings concerning for bilateral pulmonary vascular congestion. Concerning for CHF. CT interpreted by me (1pt min.). @ -None done U/S interpreted by me (1pt. min.). @ -None done What testing was considered but not performed or refused? (CT, X-rays, U/S, labs)? Why? @ -None What meds were considered but not given or refused? Why? @ -None Did you discuss the management of the patient with other professionals (professionals i.e. , PA, DOCK ASSOCIATE, lab, RT, psych nurse, social services coordinator, media reporter, teacher, returning officer, immigration case worker)? Give summary @ -Yes, with patient's admitting physician and PCP Dr. Leon. He accepted the patient. Joint decision to hold antibiotics. Was smoking cessation discussed for >3mins.? @ -No Was critical care preformed (if so, how long)? @ -No Were there social determinants of health that impacted care today? How? (Homelessness, low income, unemployed, alcoholism, drug addiction, transportation, low edu. Level, literacy, decrease access to med. care, [facility], rehab)? @ -No Was there de-escalation of care discussed even if they declined (Discuss DNR or withdrawal of care, Hospice)? DNR status @ -No What co-morbidities impacted this encounter? (DM, HTN, Smoking, COPD, CAD, Cancer, CVA, ARF, Chemo, Hep., AIDS, mental health diagnosis, sleep apnea, morbid obesity)? @ -Asthma, CHF Was patient admitted / discharged? Hospital course, mention meds given and route, prescriptions, significant lab abnormalities, going to OR and other pertinent info. @ -Based on the patient's presentation and physical exam, is concerning for asthma versus more likely CHF exacerbation for this patient. We will obtain cardiopulmonary labs. He will be given a dose of Lasix as well as a single breathing treatment. Chest x-ray and EKG will also be obtained. He was in agreement with this plan. Patient does appear to have signs of infection of the patel on the right lower extremity. We will start the patient. Plan vancomycin, and obtained blood and wound cultures. Labs are remarkable for hypoxia on room air and therefore he will be placed on his normal nightly 2 L nasal cannula which seems improved hypoxia. Patient's laboratory studies returned remarkable for a mild leukocytosis of 1.5. Coumadin is therapeutic. Chronically mildly elevated BUN/creatinine. Troponin undetectable. Elevated BNP of 2300. On reevaluation, I discussed results of the patient. I would like to admit him for a CHF exacerbation. He was in agreement this plan. Cardiology consulted. Echo ordered. Patient started on twice a day Lasix. I did contact Dr. Leon for admission. Patient is a poor historian, and Dr. Leon states that the agent was just discharged after last weekend after staying at the other hospital for CHF as well as concerning for infection. Finished a course of broad-spectrum antibodies at that time. Uncertain why the patient stopped taking his diuretics. He overall was in agreement with the admission. He both decided to hold the vancomycin at this time, is patient did recently com plete an entire course of antibiotics. Patient did receive a one-time dose here in the department. Undiagnosed new problem with uncertain prognosis? @ -No Drug Therapy requiring intensive monitoring for toxicity (Heparin, Nitro, Insulin, Cardizem)? @ -No Were any procedures done? @ -No Diagnosis/symptom? @ -CHF exacerbation,Hypoxic respiratory failure Acute, or Chronic, or Acute on Chronic? @ -Acute Uncomplicated (without systemic symptoms) or Complicated (systemic symptoms)? @ -Complicated Side effects of treatment? @ -none Exacerbation, Progression, or Severe Exacerbation] @ -Exacerbation Poses a threat to life or bodily function? @ -Yes - Lab Data Result diagrams: 03/26/23 12:05 03/26/23 12:05 Lab Results 03/26/23 03/26/23 03/26/23 Range/Units 12:05 12:05 12:05 WBC 11.5 H (3.8-10.6) k/uL RBC 3.86 L (4.30-5.90) m/uL Hgb 10.4 L (13.0-17.5) gm/dL Hct 32.8 L (39.0-53.0) % MCV 84.9 (80.0-100.0) fL MCH 26.9 (25.0-35.0) pg MCHC 31.6 (31.0-37.0) g/dL RDW 17.4 H (11.5-15.5) % Plt Count 136 L (150-450) k/uL MPV 7.4 Neutrophils % 90 % Lymphocytes % 6 % Monocytes % 3 % Eosinophils % 0 % Basophils % 0 % Neutrophils # 10.4 H (1.3-7.7) k/uL Lymphocytes # 0.6 L (1.0-4.8) k/uL Monocytes # 0.4 (0-1.0) k/uL Eosinophils # 0.0 (0-0.7) k/uL Basophils # 0.0 (0-0.2) k/uL Hypochromasia Slight Anisocytosis Slight PT 19.8 H (9.0-12.0) sec INR 2.0 H (<1.2) APTT 31.9 H (22.0-30.0) sec Sodium (137-145) mmol/L Potassium (3.5-5.1) mmol/L Chloride (98-107) mmol/L Carbon Dioxide (22-30) mmol/L Anion Gap mmol/L BUN (9-20) mg/dL Creatinine (0.66-1.25) mg/dL Est GFR (CKD-EPI)AfAm (>60 ml/min/1.73 sqM) Est GFR (CKD-EPI)NonAf (>60 ml/min/1.73 sqM) Glucose (74-99) mg/dL Plasma Lactic Acid Shankar (0.7-2.0) mmol/L Calcium (8.4-10.2) mg/dL Magnesium (1.6-2.3) mg/dL Total Bilirubin (0.2-1.3) mg/dL AST (17-59) U/L ALT (4-49) U/L Alkaline Phosphatase (38-126) U/L Troponin I (0.000-0.034) ng/mL NT-Pro-B Natriuret Pep pg/mL Total Protein (6.3-8.2) g/dL Albumin (3.5-5.0) g/dL Urine Color Yellow Urine Appearance Clear (Clear) Urine pH 7.0 (5.0-8.0) Ur Specific [place] 1.009 (1.001-1.035) Urine Protein Negative (Negative) Urine Glucose (UA) Negative (Negative) Urine Ketones Negative (Negative) Urine Blood Negative (Negative) Urine Nitrite Negative (Negative) Urine Bilirubin Negative (Negative) Urine Urobilinogen <2.0 (<2.0) mg/dL Ur Leukocyte Esterase Negative (Negative) 03/26/23 03/26/23 03/26/23 Range/Units 12:05 12:05 12:05 WBC (3.8-10.6) k/uL RBC (4.30-5.90) m/uL Hgb (13.0-17.5) gm/dL Hct (39.0-53.0) % MCV (80.0-100.0) fL MCH (25.0-35.0) pg MCHC (31.0-37.0) g/dL RDW (11.5-15.5) % Plt Count (150-450) k/uL MPV Neutrophils % % Lymphocytes % % Monocytes % % Eosinophils % % Basophils % % Neutrophils # (1.3-7.7) k/uL Lymphocytes # (1.0-4.8) k/uL Monocytes # (0-1.0) k/uL Eosinophils # (0-0.7) k/uL Basophils # (0-0.2) k/uL Hypochromasia Anisocytosis PT (9.0-12.0) sec INR (<1.2) APTT (22.0-30.0) sec Sodium 136 L (137-145) mmol/L Potassium 4.3 (3.5-5.1) mmol/L Chloride 98 (98-107) mmol/L Carbon Dioxide 32 H (22-30) mmol/L Anion Gap 6 mmol/L BUN 47 H (9-20) mg/dL Creatinine 1.27 H (0.66-1.25) mg/dL Est GFR (CKD-EPI)AfAm 65 (>60 ml/min/1.73 sqM) Est GFR (CKD-EPI)NonAf 56 (>60 ml/min/1.73 sqM) Glucose 123 H (74-99) mg/dL Plasma Lactic Acid Shankar 1.0 (0.7-2.0) mmol/L Calcium 8.2 L (8.4-10.2) mg/dL Magnesium 2.2 (1.6-2.3) mg/dL Total Bilirubin 1.2 (0.2-1.3) mg/dL AST 44 (17-59) U/L ALT 60 H (4-49) U/L Alkaline Phosphatase 115 (38-126) U/L Troponin I <0.012 (0.000-0.034) ng/mL NT-Pro-B Natriuret Pep pg/mL Total Protein 6.2 L (6.3-8.2) g/dL Albumin 3.4 L (3.5-5.0) g/dL Urine Color Urine Appearance (Clear) Urine pH (5.0-8.0) Ur Specific [place] (1.001-1.035) Urine Protein (Negative) Urine Glucose (UA) (Negative) Urine Ketones (Negative) Urine Blood (Negative) Urine Nitrite (Negative) Urine Bilirubin (Negative) Urine Urobilinogen (<2.0) mg/dL Ur Leukocyte Esterase (Negative) 03/26/23 Range/Units 12:05 WBC (3.8-10.6) k/uL RBC (4.30-5.90) m/uL Hgb (13.0-17.5) gm/dL Hct (39.0-53.0) % MCV (80.0-100.0) fL MCH (25.0-35.0) pg MCHC (31.0-37.0) g/dL RDW (11.5-15.5) % Plt Count (150-450) k/uL MPV Neutrophils % % Lymphocytes % % Monocytes % % Eosinophils % % Basophils % % Neutrophils # (1.3-7.7) k/uL Lymphocytes # (1.0-4.8) k/uL Monocytes # (0-1.0) k/uL Eosinophils # (0-0.7) k/uL Basophils # (0-0.2) k/uL Hypochromasia Anisocytosis PT (9.0-12.0) sec INR (<1.2) APTT (22.0-30.0) sec Sodium (137-145) mmol/L Potassium (3.5-5.1) mmol/L Chloride (98-107) mmol/L Carbon Dioxide (22-30) mmol/L Anion Gap mmol/L BUN (9-20) mg/dL Creatinine (0.66-1.25) mg/dL Est GFR (CKD-EPI)AfAm (>60 ml/min/1.73 sqM) Est GFR (CKD-EPI)NonAf (>60 ml/min/1.73 sqM) Glucose (74-99) mg/dL Plasma Lactic Acid Shankar (0.7-2.0) mmol/L Calcium (8.4-10.2) mg/dL Magnesium (1.6-2.3) mg/dL Total Bilirubin (0.2-1.3) mg/dL AST (17-59) U/L ALT (4-49) U/L Alkaline Phosphatase (38-126) U/L Troponin I (0.000-0.034) ng/mL NT-Pro-B Natriuret Pep 2310 pg/mL Total Protein (6.3-8.2) g/dL Albumin (3.5-5.0) g/dL Urine Color Urine Appearance (Clear) Urine pH (5.0-8.0) Ur Specific [place] (1.001-1.035) Urine Protein (Negative) Urine Glucose (UA) (Negative) Urine Ketones (Negative) Urine Blood (Negative) Urine Nitrite (Negative) Urine Bilirubin (Negative) Urine Urobilinogen (<2.0) mg/dL Ur Leukocyte Esterase (Negative) - EKG Data -: EKG Interpreted by Me EKG Comments: 12-lead Electrocardiogram Interpretation Note EKG was reviewed and interpreted by myself. 12-lead ECG performed at 1146 is interpreted by me as revealing sinus arrhythmia at a rate of 61 beats per minut e. [place] is normal. MA interval is 156 ms, QRS durations 102 ms, QTc is 462 ms.. There were no ST or T wave abnormalities to suggest myocardial ischemia or injury. R wave progression across the precordium was satisfactory. By my interpretation this EKG is non-diagnostic for acute ischemia. Disposition Clinical Impression: CHF (congestive heart failure), Hypoxia Disposition: ADMITTED IP TO THIS HOSP Condition: Stable Time of Disposition: 14:30
[2023-03-26 12:57] LABS: Appearance,Urine Clear (Clear); Bilirubin,Urine Negative (Negative); Blood,Urine Negative (Negative); Color,Urine Yellow; Glucose,Urine (UA) Negative (Negative); Ketones,Urine Negative (Negative); Leukocyte Esterase,Urine Negative (Negative); Nitrite,Urine Negative (Negative); Protein,Urine Negative (Negative); Specific Gravity,Urine 1.009 (1.001-1.035); Urobilinogen,Urine <2.0 mg/dL (<2.0)
[2023-03-26 13:07] LABS: Partial Thromboplastin Time 31.9 sec (22.0-30.0); Prothrombin Time 19.8 sec (9.0-12.0)
--- NOTE | 2023-03-26 14:11 | XR ---
EXAMINATION TYPE: XR chest 2V DATE OF EXAM: 03/26/2023 COMPARISON: Chest x-ray February 10, 2016 HISTORY: Difficulty in breathing. TECHNIQUE: Frontal and lateral views of the chest are obtained. FINDINGS: Persistent cardiomegaly and reticular interstitial prominence bilaterally. More prominent central increased opacities. Tiny bilateral pleural effusions with blunting of posterior costophrenic angles. No pneumothorax seen. The osseous structures are intact. IMPRESSION: CHF exacerbation. Present. There is cardiomegaly with [id number] interstitial vicki a and central alveolar edema suspected and tiny bilateral pleural effusions noted. Correlate clinical ly.
[2023-03-26] MEDS ORDERED: IPRATROPIUM-ALBUTEROL 3 ML NEB INHALATION PRN (14:27)
[2023-03-26] MEDS ORDERED: AZITHROMYCIN 500 MG in SODIUM CHLORIDE 0.9% 250 ML IVPB STA (14:28)
[2023-03-26] MEDS ORDERED: ASPIRIN 81 MG PO STA (14:31)
[2023-03-26] MEDS ORDERED: NALOXONE 0.4 MG/ML 1 ML VIAL IV PRN (14:51)
[2023-03-26] MEDS ORDERED: BENZONATATE 100 MG CAP PO PRN (14:53)
[2023-03-26] MEDS ORDERED: NON FORMULARY DRUG (Tadalafil [Tadalafil] 5 MG Tablet) PO PRN (14:53)
[2023-03-26] MEDS: ACETAMINOPHEN TAB 500 MG TAB PO PRN (15:52)
[2023-03-26] MEDS ORDERED: WARFARIN 5 MG TAB PO SCH (18:00)
[2023-03-26] MEDS: WARFARIN 2 MG TAB PO SCH (18:24)
[2023-03-26] MEDS: GABAPENTIN 300 MG CAP PO SCH (20:12)
[2023-03-26] MEDS: FUROSEMIDE 10 MG/ML 10 ML VIAL IV SCH (20:12)
[2023-03-26] MEDS: METOPROLOL TARTRATE 25 MG TAB PO SCH (20:12)
[2023-03-26] MEDS: MONTELUKAST 10 MG TAB PO SCH (20:12)
[2023-03-26] MEDS ORDERED: methylPREDNISolone SOD SUCCI 40 MG/ML 1 ML VIAL IV SCH (21:00)
[2023-03-26] MEDS ORDERED: FUROSEMIDE 10 MG/ML 4 ML VIAL IV SCH (21:00)
[2023-03-26] MEDS: IPRATROPIUM-ALBUTEROL 3 ML NEB INHALATION SCH (21:43)
[2023-03-27] MEDS: IPRATROPIUM-ALBUTEROL 3 ML NEB INHALATION SCH ×4 (02:35→20:25)
[2023-03-27] MEDS: ACETAMINOPHEN TAB 500 MG TAB PO PRN ×2 (04:01→21:03)
[2023-03-27] MEDS ORDERED: VANCOMYCIN 2,000 MG in SODIUM CHLORIDE 0.9% 500 ML 500 ML IVPB SCH (07:00)
[2023-03-27] MEDS ORDERED: AZITHROMYCIN 500 MG in SODIUM CHLORIDE 0.9% 250 ML IVPB SCH (09:00)
[2023-03-27 09:16] LABS: Anisocytosis Slight; Basophils % (A) 0 %; Eosinophils # (A) 0.1 k/uL (0-0.7); Eosinophils % (A) 1 %; Hypochromasia Moderate; Lymphocytes # (A) 1.3 k/uL (1.0-4.8); Lymphocytes % (A) 11 %; MCH 26.4 pg (25.0-35.0); MCHC 30.4 g/dL (31.0-37.0); MCV 86.7 fL (80.0-100.0); Mean Platelet Volume 7.4; Monocytes # (A) 0.7 k/uL (0-1.0); Monocytes % (A) 6 %; Neutrophils # (A) 9.3 k/uL (1.3-7.7); Neutrophils % (A) 80 %; Platelet Count 145 k/uL (150-450); RDW 17.3 % (11.5-15.5); WBC 11.6 k/uL (3.8-10.6)
[2023-03-27 09:29] LABS: INR 2.3 (<1.2)
[2023-03-27 09:39] LABS: Potassium 3.6 mmol/L (3.5-5.1); Total Bilirubin 1.1 mg/dL (0.2-1.3); Total Protein 5.7 g/dL (6.3-8.2)
[2023-03-27] MEDS: TAMSULOSIN 0.4 MG CAP.ER.24H PO SCH (10:02)
[2023-03-27] MEDS: SERTRALINE 100 MG TAB PO SCH (10:02)
[2023-03-27] MEDS: predniSONE 20 MG TAB PO SCH (10:02)
[2023-03-27] MEDS: FUROSEMIDE 10 MG/ML 10 ML VIAL IV SCH (10:02)
[2023-03-27] MEDS: SPIRONOLACTONE 25 MG TAB PO SCH (10:02)
[2023-03-27] MEDS: CHOLECALCIFEROL 25 MCG (1000 IU) TABLET PO SCH (10:02)
[2023-03-27] MEDS: allopurinoL 100 MG TAB PO SCH (10:02)
[2023-03-27] MEDS: DAPAGLIFLOZIN PROPANEDIOL 5 MG TABLET PO SCH (10:02)
[2023-03-27] MEDS: PANTOPRAZOLE 40 MG TABLET PO SCH (10:02)
[2023-03-27] MEDS: METOPROLOL TARTRATE 25 MG TAB PO SCH ×2 (10:03→19:43)
[2023-03-27] MEDS: ATORVASTATIN 20 MG TAB PO SCH (10:03)
--- NOTE | 2023-03-27 11:13 | P.CRDCN ---
History of Present Illness Consult date: 03/27/23 Consult reason: shortness of breath History of present illness: History of present illness: Patient is a pleasant 72-year-old male with significant past medical history of congestive heart failure, asthma, hypertension who presented to the emergency department with complaints of worsening shortness of breath and bilateral lower extremity edema. He does not believe he follows with a solutions sales consultant. He was recently at [facility] for 11 days for similar symptoms. He reports that he was discharged approximately 2 days ago and was at home, initially had felt better, however, his shortness of breath got worse and he presented to the emergency department here. He believes that his lower extremity edema is about the same as it has been, however, right lower extremity was noted to be infected and he was started on IV vancomycin. He does appear short of breath with talking sitting up right in the chair, he is on 5 L nasal cannula O2. He is on Coumadin however he does not know exactly what this is for, there is mention of paroxysmal a-fib in records from [facility]. Labs reviewed: INR 2.0, troponin negative 1, BNP 2310, WBC 11.5, hemoglobin 10.4, platelet 36, creatinine 1.27. EKG shows sinus rhythm with sinus arrhythmia 61 bpm. Chest x-ray shows CHF exacerbation, cardiomegaly with mildmoderate interstitial edema and central alveolar edema suspected and tiny bilateral pleural effusions. REVIEW OF SYSTEMS: No fever or chills. No cough or expectoration. No diaphoresis. Patient denies headache, dizziness, blurred vision, double vision. Patient denies any stomach discomfort. No nausea, vomiting. No hematochezia. No hematemesis. Denies any black stools or blood in his stools. Denies dysuria or hematuria. No muscle weakness or numbness. Intermittent chest pain or pressure. Reports shortness of breath. PHYSICAL EXAMINATION: This is a 72-year-old male in no apparent distress at the time of my examination. HEENT: Head is atraumatic, normocephalic. Pupils are equal, round. Sclerae anicteric. Conjunctivae are clear. Mucous membranes of the mouth are moist. Neck is supple. There is no jugular venous distention. No carotid bruit is heard. CHEST EXAMINATION: Lungs are diminished with wheezes throughout. On NC O2. Appears short of breath with speaking HEART EXAMINATION: Heart regular rate and rhythm. S1, S2 heard. No murmurs, gallops or rub. ABDOMEN: Soft, nontender. Bowel sounds are heard. EXTREMITIES: Bilateral lower extremity edema 2+ pitting up to the knee, both shins are wrapped in Kerlix. NEUROLOGIC EXAMINATION: Patient is awake, alert and oriented x3. IMPRESSION AND PLAN: Heart failure Hypertension Shortness of breath Asthma Lower extremity edema Right lower extremity cellulitis PLAN: Chart briefly reviewed from [facility] from last week, echocardiogram with preserved EF. We will follow-up with repeat echocardiogram that was done this morning. Continue Coumadin. Continue with diuresis, monitor intake and output, and kidney function. Shortness of breath may be more lung related. We will follow. I am dictating on behalf of Dr. Justin Lopez's history/physical and assessment/plan. Past Medical History Past Medical History: Asthma, Chest Pain / Angina, GERD/Reflux, Hyperlipidemia, Hypertension, Osteoarthritis (OA), Pneumonia, Sleep Apnea/CPAP/BIPAP Additional Past Medical History / Comment(s): uses oxygen at night 2L, gout, in wheelchair or walker due to pain in left leg, poor circulation in legs(takes coumadin for) History of Any Multi-Drug Resistant Organisms: None Reported Past Surgical History: Orthopedic Surgery, Tonsillectomy Additional Past Surgical History / Comment(s): LEFT WRIST ORIF, LEFT KNEE REPLACEMENT, Past Anesthesia/Blood Transfusion Reactions: No Reported Reaction Additional Past Anesthesia/Blood Transfusion Reaction / Comment(s): . Past Psychological History: No Psychological Hx Reported Smoking Status: Former smoker Past Alcohol Use History: None Reported Past Drug Use History: None Reported - Past Family History Mother Family Medical History: Congestive Heart Failure (CHF), Osteoarthritis (OA) Father Additional Family Medical History / Comment(s): FROM [place] Brother(s) Family Medical History: Cancer Additional Family Medical History / Comment(s): . Sister(s) Family Medical History: Deep Vein Thrombosis (DVT) Medications and Allergies Home Medications Medication Instructions Recorded Confirmed Type Metoprolol Tartrate 25 mg PO BID 11/02/14 03/26/23 History allopurinoL [Zyloprim] 200 mg PO DAILY 11/02/14 03/26/23 History Montelukast [Singulair] 10 mg PO HS #30 tab 11/07/14 03/26/23 Rx Sertraline [Zoloft] 100 mg PO DAILY 04/04/17 03/26/23 History Atorvastatin [Lipitor] 20 mg PO DAILY 07/14/19 03/26/23 History Spironolactone [Aldactone] 25 mg PO DAILY 07/14/19 03/26/23 History Tamsulosin [Flomax] 0.4 mg PO DAILY 07/14/19 03/26/23 History Ipratropium-Albuterol Nebulize 3 ml INHALATION RT-Q6H 08/19/19 03/26/23 History [Duoneb 0.5 mg-3 mg/3 ml Soln] Gabapentin [Neurontin] 300 mg PO HS 11/30/19 03/26/23 History Acetaminophen Tab [Tylenol Tab] 500 mg PO Q6H PRN 03/26/23 03/26/23 History Benzonatate [Tessalon Perles] 100 mg PO TID PRN 03/26/23 03/26/23 History Cholecalciferol [Vitamin D3 (25 50 mcg PO DAILY 03/26/23 03/26/23 History Mcg = 1000 Iu)] Empagliflozin [Jardiance] 10 mg PO DAILY 03/26/23 03/26/23 History Pantoprazole [Protonix] 40 mg PO DAILY 03/26/23 03/26/23 History Potassium Chloride ER [K-Dur 20] 20 meq PO BID 03/26/23 03/26/23 History Simethicone Chew [Mylicon Chew] 80 mg PO TID PRN 03/26/23 03/26/23 History Warfarin Sodium 4 mg PO DAILY 03/26/23 03/26/23 History predniSONE [Deltasone] See Taper PO DIRECTED 03/26/23 03/26/23 History tadalafiL 5 mg PO DAILY PRN 03/26/23 03/26/23 History Allergies Allergy/AdvReac Type Severity Reaction Status Date / Time No Known Allergies Allergy Verified 03/26/23 13:12 Physical Exam Vitals: Vital Signs Temp Pulse Pulse Resp BP BP Pulse Ox 03/27/23 08:08 52 L 18 03/27/23 07:57 51 L 18 91 L 03/27/23 04:00 53 L 20 106/60 94 L 03/27/23 00:00 56 L 20 110/56 93 L 04/26/23 21:54 65 03/26/23 21:44 62 03/26/23 20:00 97.6 F 60 20 113/54 93 L 03/26/23 18:31 97.6 F 55 L 19 101/53 97 03/26/23 16:51 60 18 107/71 54 L 03/26/23 15:55 61 20 96/54 95 03/26/23 15:04 89 L 03/26/23 14:53 56 L 16 116/65 97 03/26/23 13:22 56 L 18 03/26/23 13:14 55 L 18 03/26/23 11:40 97.8 F 60 18 106/53 94 L Intake and Output 03/26/23 03/27/23 03/27/23 22:59 06:59 14:59 Intake Total 180 Output Total 600 Balance -600 180 Intake: Oral 180 Output: Urine 600 Other: Voiding Method External Catheter External Catheter # Voids 2 Weight 136.078 kg 133.5 kg Results 03/27/23 08:08 03/27/23 06:18 Cardiac Enzymes 03/26/23 03/26/23 03/27/23 Range/Units 12:05 12:05 06:18 AST 44 43 (17-59) U/L Troponin I <0.012 (0.000-0.034) ng/mL Coagulation 03/26/23 03/27/23 Range/Units 12:05 08:08 PT 19.8 H 22.0 H (9.0-12.0) sec APTT 31.9 H (22.0-30.0) sec CBC 03/26/23 03/27/23 Range/Units 12:05 08:08 WBC 11.5 H 11.6 H (3.8-10.6) k/uL RBC 3.86 L 3.80 L (4.30-5.90) m/uL Hgb 10.4 L 10.0 L (13.0-17.5) gm/dL Hct 32.8 L 33.0 L (39.0-53.0) % Plt Count 136 L 145 L (150-450) k/uL Comprehensive Metabolic Panel 03/26/23 03/27/23 Range/Units 12:05 06:18 Sodium 136 L 137 (137-145) mmol/L Potassium 4.3 3.6 (3.5-5.1) mmol/L Chloride 98 99 (98-107) mmol/L Carbon Dioxide 32 H 30 (22-30) mmol/L BUN 47 H 50 H (9-20) mg/dL Creatinine 1.27 H 1.44 H (0.66-1.25) mg/dL Glucose 123 H 88 (74-99) mg/dL Calcium 8.2 L 8.0 L (8.4-10.2) mg/dL AST 44 43 (17-59) U/L ALT 60 H 58 H (4-49) U/L Alkaline Phosphatase 115 103 (38-126) U/L Total Protein 6.2 L 5.7 L (6.3-8.2) g/dL Albumin 3.4 L 3.0 L (3.5-5.0) g/dL Current Medications Generic Name Dose Route Start Last Admin Trade Name Freq PRN Reason Stop Dose Admin Acetaminophen 500 mg 03/26/23 14:53 03/27/23 04:01 Acetaminophen Tab 500 Mg Tab PO 500 mg Q6H PRN Administration Pain Albuterol/Ipratropium 3 ml 03/26/23 20:00 03/27/23 07:57 Ipratropium-Albuterol 3 Ml Neb INHALATION 3 ml RT-Q6H JENNIFER Administration Allopurinol 200 mg 03/27/23 09:00 Allopurinol 100 Mg Tab PO DAILY JENNIFER Atorvastatin Calcium 20 mg 03/27/23 09:00 Atorvastatin 20 Mg Tab PO DAILY JENNIFER Benzonatate 100 mg 03/26/23 14:53 Benzonatate 100 Mg Cap PO TID PRN Cough Cholecalciferol 50 mcg 03/27/23 09:00 Cholecalciferol 25 Mcg (1000 Iu) Tablet PO DAILY JENNIFER Dapagliflozin 5 mg 03/27/23 09:00 Dapagliflozin Propanediol 5 Mg Tablet PO DAILY JENNIFER Furosemide 80 mg 03/26/23 21:00 03/26/23 20:12 Furosemide 10 Mg/Ml 10 Ml Vial IV 80 mg Q12HR JENNIFER Administration Gabapentin 300 mg 03/26/23 21:00 03/26/23 20:12 Gabapentin 300 Mg Cap PO 300 mg HS JENNIFER Administration Metoprolol Tartrate 25 mg 03/26/23 21:00 03/26/23 20:12 Metoprolol Tartrate 25 Mg Tab PO 25 mg BID JENNIFER Administration Montelukast Sodium 10 mg 03/26/23 21:00 03/26/23 20:12 Montelukast 10 Mg Tab PO 10 mg HS JENNIFER Administration Naloxone HCl 0.2 mg 03/26/23 14:51 Naloxone 0.4 Mg/Ml 1 Ml Vial IV Q2M PRN Opioid Reversal Pantoprazole Sodium 40 mg 03/27/23 09:00 Pantoprazole 40 Mg Tablet PO DAILY [facility] Prednisone 60 mg 03/27/23 09:00 Prednisone 20 Mg Tab PO DAILY [facility] Sertraline HCl 100 mg 03/27/23 09:00 Sertraline 100 Mg Tab PO DAILY [facility] Spironolactone 25 mg 03/27/23 09:00 Spironolactone 25 Mg Tab PO DAILY [facility] Tamsulosin HCl 0.4 mg 03/27/23 09:00 Tamsulosin 0.4 Mg Cap.Er.24h PO DAILY [facility] Warfarin Sodium 4 mg 03/26/23 18:00 03/26/23 18:24 Warfarin 2 Mg Tab PO 4 mg W/SUPPER JENNIFER Administration Intake and Output 03/26/23 03/27/23 03/27/23 22:59 06:59 14:59 Intake Total 180 Output Total 600 Balance -600 180 Intake: Oral 180 Output: Urine 600 Other: Voiding Method External Catheter External Catheter # Voids 2 Weight 136.078 kg 133.5 kg 03/27/23 08:08 03/27/23 06:18
[2023-03-27] MEDS: WARFARIN 2 MG TAB PO SCH (16:14)
[2023-03-27] MEDS ORDERED: WARFARIN 2.5 MG TAB PO SCH (18:00)
[2023-03-27] MEDS: FUROSEMIDE 10 MG/ML 4 ML VIAL IV SCH (19:42)
[2023-03-27] MEDS: GABAPENTIN 300 MG CAP PO SCH (19:43)
[2023-03-27] MEDS: MONTELUKAST 10 MG TAB PO SCH (19:43)
[2023-03-27] MEDS ORDERED: IPRATROPIUM-ALBUTEROL 3 ML NEB INHALATION PRN (20:30)
[2023-03-28] MEDS: SERTRALINE 100 MG TAB PO SCH (08:05)
[2023-03-28] MEDS: predniSONE 20 MG TAB PO SCH (08:05)
[2023-03-28] MEDS: METOPROLOL TARTRATE 25 MG TAB PO SCH ×2 (08:05→20:19)
[2023-03-28] MEDS: allopurinoL 100 MG TAB PO SCH (08:05)
[2023-03-28] MEDS: TAMSULOSIN 0.4 MG CAP.ER.24H PO SCH (08:05)
[2023-03-28] MEDS: FUROSEMIDE 10 MG/ML 4 ML VIAL IV SCH ×2 (08:05→20:19)
[2023-03-28] MEDS: ATORVASTATIN 20 MG TAB PO SCH (08:05)
[2023-03-28] MEDS: CHOLECALCIFEROL 25 MCG (1000 IU) TABLET PO SCH (08:05)
[2023-03-28] MEDS: DAPAGLIFLOZIN PROPANEDIOL 5 MG TABLET PO SCH (08:05)
[2023-03-28] MEDS: SPIRONOLACTONE 25 MG TAB PO SCH (08:05)
[2023-03-28] MEDS: PANTOPRAZOLE 40 MG TABLET PO SCH (08:05)
--- NOTE | 2023-03-28 08:06 | P.HPIM ---
History of Present Illness H&P Date: 03/26/23 HISTORY OF PRESENT ILLNESS: This is a 72-year-old male with a previous medical history significant for hypertension and hypertensive cardio vascular disease, hyperlipidemia, obesity with obstructive sleep apnea and obesity hypoventilation syndrome, chronic diastolic heart failure, asthma, hypothyroidism, anxiety and depressive disorder, peripheral neuropathy, patient was recently discharged from [facility] after he was admitted for 2 week for acute hypoxemic respiratory failure due to acute diastolic heart failure as well as bilateral lower extremity cellulitis he was given 2 week course of Levaquin and vancomycin along with IV diuretics in the form of Lasix 80 mg IV push every 12 hours as well as Zaroxolyn, patient was just left the hospital 2 days ago on 03/24/2023, and I received a call yesterday from his caregiver stating that the patient is not able to care for himself at this time, he would've the patient never voiced that he wants to go to longterm, patient apparently had stopped his Lasix at home, he did not have his medications sorted, so he ended up coming to the emergency department at [facility] this time and he was seen in the emergency department with Dr. Noe who stated that the patient was hypoxemic at 88% patient was supposed to be on oxygen 2-1/2 L nasal cannula, which she was not on and the patient was admitted to the hospital for acute diastolic heart failure his laboratory evaluation were slightly elevated leukocyte count. Otherwise patient was doing okay he does not appear to be in acute distress at this time, because of the presentation was started on Lasix 80 mg IV push every 12 hours, echocardiogram and cardiology consultation, patient was kept on Jardiance or its substitute Farxiga 5 mg orally once every day, fluid restriction to 1250 mL orally once every day, input and output and daily weight, physical therapy evaluation social media manager consultation for discharge planning and possible subacute rehab physician. REVIEW OF SYSTEMS: Constitutional: No documented fever, no chills, no night sweats. No weight change. No weakness, fatigue or lethargy. No daytime sleepiness. HEENT: No headache. No blurred vision or double vision, no loss of vision. No loss of Hearing, no ringing in the ears, no dizziness. No nasal drainage or congestion. No epistaxis. No sore throat. Lungs: No shortness of breath, no cough, no sputum production. No wheezing. Reports dyspnea with activity. Cardiovascular: No chest pain, no lower extremity edema. No palpitations. No paroxysmal nocturnal dyspnea. No orthopnea. No lightheadedness or dizziness. No syncopal episodes. Abdominal: Reports abdominal pain. No nausea, vomiting. No diarrhea. No constipation. No bloody or tarry stools reports loss of appetite. Genitourinary: No dysuria, increased frequency, urgency. No urinary retention. Musculoskeletal: No myalgias. No muscle weakness, no gait dysfunction, no frequent falls. No back pain. No neck pain. Integumentary: No wounds, no lesions. No rash or pruritus. No unusual bruising. No change in hair or nails. Neurologic: No aphasia. No facial droop. No change in mentation. No head injury. No headache. No paralysis. No paresthesia. Psychiatric: No depression. No anxiety. No mood swings. Endocrine: No abnormal blood sugars. No weight change. PAST MEDICAL HISTORY: Hypertension and hypertensive cardiovascular disease. Hyperlipidemia. Hypothyroidism. Obesity with obstructive sleep apnea and obesity hypoventilation syndrome Moderate persistent asthma. Enlarged prostate. Anxiety. PAST SURGICAL HISTORY: Left knee replacement Circumcision Colonoscopy SOCIAL HISTORY: She used to smoke about pack every day he smoked for many years and quit about 15 years ago, he denies any alcohol ingestion, no drug use or abuse. FAMILY HISTORY: Father at age of 61 from [place] mother at age of 70 and she had osteoarthritis patient had 3 brothers one from lung cancer one with CAD and 1 Parkinson disease and patient had 5 sisters all have passed PHYSICAL EXAMINATION: General: 72-year-old male lying down in bed in no distress HEENT: Head is atraumatic, normocephalic, pupils were equal round reactive to light and recommendation, extraocular muscle movement were intact, sclera nonicteric, conjunctivae were pale, mucous membranes of the mouth are somewhat dry. Neck: Supple, no JVP, normal carotid upstroke bilaterally, no lymphadenopathy. Chest: Decreased breath sounds at the bases, few rhonchi, no expiratory wheezes, no chest wall tenderness, no intercostal retractions. Heart: First heart sound is normal, second heart sounds normal, there is systolic ejection murmur 2/6 located in the left sternal border. Abdomen: Soft, nontender, nondistended, positive bowel sounds. Extremities: There is +1 edema no calf tenderness DP +2 bilaterally. Neurologic examination: Patient is awake alert and oriented X 3, cranial nerves II-12 appear grossly intact, muscle power were 5 out of 5 in upper extremities and 3 out of 5 in bilateral lower extremities, deep tendon reflexes normal bilaterally. ASSESSMENT AND PLAN: 1. Acute hypoxemic respiratory failure due to acute on chronic diastolic heart failure due to the fact the patient did not take his medication over the last 2 days, patient was started on Lasix 80 mg IV push every 12 hours, monitor input and output and daily weight, continue spironolactone 25 mg orally once every day, continue patient on Farxiga 5 mg orally once every day, metoprolol 25 mg orally twice every day, echocardiogram for evaluation of LV function, cardiology consultation. 2. Bilateral lower extremity venous stasis with skin tear. Continue local skin care, continue diuretics, keep leg elevated discontinue IV vancomycin. 3. COPD/moderate persistent asthma and not in exacerbation with chronic hypoxemic respiratory failure continue oxygen support continue DuoNeb 3 mg nebulization 4 times every day, continue prednisone 60 mg orally once every day. 4. Paroxysmal atrial for ablation. Continue patient on metoprolol 25 mg orally twice every day, continue warfarin 4 mg once every day, monitor PT and INR. 5. Hypertension and hypertensive cardio vascular disease. Continue patient on metoprolol 25 mg orally twice every day, monitor the patient blood pressure very closely. 6. Hyperlipidemia. Continue patient on atorvastatin 20 mg orally once every day, monitor lipid panel, keep LDL 55-70. 7. Enlarged prostate. Continue patient on tamsulosin 0.4 mg orally once every day. 8. Anxiety disorder. Continue patient on sertraline 100 mg orally once every day. 9. Neuropathy. Continue patient on gabapentin 300 mg at bedtime. 10. DVT prophylaxis. Continue warfarin 4 mg at bedtime. Monitor PT and INR. 11. GI prophylaxis. Continue patient on Protonix 40 mg orally once every day. 12. Admit to inpatient. Estimate a length of stay 2 midnights. 13. Patient is full code. Past Medical History Past Medical History: Asthma, Chest Pain / Angina, GERD/Reflux, Hyperlipidemia, Hypertension, Osteoarthritis (OA), Pneumonia, Sleep Apnea/CPAP/BIPAP Additional Past Medical History / Comment(s): uses oxygen at night 2L, gout, in wheelchair or walker due to pain in left leg, poor circulation in legs(takes coumadin for) History of Any Multi-Drug Resistant Organisms: None Reported Past Surgical History: Orthopedic Surgery, Tonsillectomy Additional Past Surgical History / Comment(s): LEFT WRIST ORIF, LEFT KNEE REPLACEMENT, bilateral cataract surgery Past Anesthesia/Blood Transfusion Reactions: No Reported Reaction Additional Past Anesthesia/Blood Transfusion Reaction / Comment(s): . Past Psychological History: No Psychological Hx Reported Additional Psychological History / Comment(s): . Smoking Status: Former smoker Past Alcohol Use History: None Reported Additional Past Alcohol Use History / Comment(s): started smoking at age 21-2ppd then quit 2004, Past Drug Use History: None Reported - Past Family History Mother Family Medical History: Congestive Heart Failure (CHF), Osteoarthritis (OA) Father Additional Family Medical History / Comment(s): FROM [place] Brother(s) Family Medical History: Cancer Additional Family Medical History / Comment(s): . Sister(s) Family Medical History: Deep Vein Thrombosis (DVT) Medications and Allergies Home Medications Medication Instructions Recorded Confirmed Type Metoprolol Tartrate 25 mg PO BID 11/02/14 03/26/23 History allopurinoL [Zyloprim] 200 mg PO DAILY 11/02/14 03/26/23 History Montelukast [Singulair] 10 mg PO HS #30 tab 11/07/14 03/26/23 Rx Sertraline [Zoloft] 100 mg PO DAILY 04/04/17 03/26/23 History Atorvastatin [Lipitor] 20 mg PO DAILY 07/14/19 03/26/23 History Spironolactone [Aldactone] 25 mg PO DAILY 07/14/19 03/26/23 History Tamsulosin [Flomax] 0.4 mg PO DAILY 07/14/19 03/26/23 History Ipratropium-Albuterol Nebulize 3 ml INHALATION RT-Q6H 08/19/19 03/26/23 History [Duoneb 0.5 mg-3 mg/3 ml Soln] Gabapentin [Neurontin] 300 mg PO HS 11/30/19 03/26/23 History Acetaminophen Tab [Tylenol Tab] 500 mg PO Q6H PRN 03/26/23 03/26/23 History Benzonatate [Tessalon Perles] 100 mg PO TID PRN 03/26/23 03/26/23 History Cholecalciferol [Vitamin D3 (25 50 mcg PO DAILY 03/26/23 03/26/23 History Mcg = 1000 Iu)] Empagliflozin [Jardiance] 10 mg PO DAILY 03/26/23 03/26/23 History Pantoprazole [Protonix] 40 mg PO DAILY 03/26/23 03/26/23 History Potassium Chloride ER [K-Dur 20] 20 meq PO BID 03/26/23 03/26/23 History Simethicone Chew [Mylicon Chew] 80 mg PO TID PRN 03/26/23 03/26/23 History Warfarin Sodium 4 mg PO DAILY 03/26/23 03/26/23 History predniSONE [Deltasone] See Taper PO DIRECTED 03/26/23 03/26/23 History tadalafiL 5 mg PO DAILY PRN 03/26/23 03/26/23 History Allergies Allergy/AdvReac Type Severity Reaction Status Date / Time No Known Allergies Allergy Verified 03/26/23 13:12 Physical Exam Vitals: Vital Signs Temp Pulse Resp BP Pulse Ox 03/26/23 16:51 60 18 107/71 54 L 03/26/23 15:55 61 20 96/54 95 03/26/23 15:04 89 L 03/26/23 14:53 56 L 16 116/65 97 03/26/23 13:22 56 L 18 03/26/23 13:14 55 L 18 03/26/23 11:40 97.8 F 60 18 106/53 94 L Intake and Output 03/26/23 03/26/23 03/26/23 06:59 14:59 22:59 Other: Weight 136.078 kg 136.078 kg Results CBC & Chem 7: 03/27/23 08:08 03/27/23 06:18 Labs: Abnormal Lab Results - Last 24 Hours (Table) 03/26/23 03/26/23 03/26/23 Range/Units 12:05 12:05 12:05 WBC 11.5 H (3.8-10.6) k/uL RBC 3.86 L (4.30-5.90) m/uL Hgb 10.4 L (13.0-17.5) gm/dL Hct 32.8 L (39.0-53.0) % RDW 17.4 H (11.5-15.5) % Plt Count 136 L (150-450) k/uL Neutrophils # 10.4 H (1.3-7.7) k/uL Lymphocytes # 0.6 L (1.0-4.8) k/uL PT 19.8 H (9.0-12.0) sec INR 2.0 H (<1.2) APTT 31.9 H (22.0-30.0) sec Sodium 136 L (137-145) mmol/L Carbon Dioxide 32 H (22-30) mmol/L BUN 47 H (9-20) mg/dL Creatinine 1.27 H (0.66-1.25) mg/dL Glucose 123 H (74-99) mg/dL Calcium 8.2 L (8.4-10.2) mg/dL ALT 60 H (4-49) U/L Total Protein 6.2 L (6.3-8.2) g/dL Albumin 3.4 L (3.5-5.0) g/dL Thrombosis Risk Factor Assmnt - Choose All That Apply Each Risk Factor Represents 2 Points: Age 61-74 years Thrombosis Risk Factor Assessment Total Risk Factor Score: 2 Thrombosis Risk Factor Assessment Level: Low Risk
--- NOTE | 2023-03-28 08:08 | P.PN ---
Subjective Progress Note Date: 03/27/23 HISTORY OF PRESENT ILLNESS: This is a 72-year-old male with a previous medical history significant for hypertension and hypertensive cardio vascular disease, hyperlipidemia, obesity with obstructive sleep apnea and obesity hypoventilation syndrome, chronic diastolic heart failure, asthma, hypothyroidism, anxiety and depressive disorder, peripheral neuropathy, patient was recently discharged from [facility] after he was admitted for 2 week for acute hypoxemic respiratory failure due to acute diastolic heart failure as well as bilateral lower extremity cellulitis he was given 2 week course of Levaquin and vancomycin along with IV diuretics in the form of Lasix 80 mg IV push every 12 hours as well as Zaroxolyn, patient was just left the hospital 2 days ago on 03/24/2023, and I received a call yesterday from his caregiver stating that the patient is not able to care for himself at this time, he would've the patient never voiced that he wants to go to [facility], patient apparently had stopped his Lasix at home, he did not have his medications sorted, so he ended up coming to the emergency department at [facility] this time and he was seen in the em ergency department with Dr. Noe who stated that the patient was hypoxemic at 88% patient was supposed to be on oxygen 2-1/2 L nasal cannula, which she was not on and the patient was admitted to the hospital for acute diastolic heart failure his laboratory evaluation were slightly elevated leukocyte count. Otherwise patient was doing okay he does not appear to be in acute distress at this time, because of the presentation was started on Lasix 80 mg IV push every 12 hours, echocardiogram and cardiology consultation, patient was kept on Jardiance or its substitute Farxiga 5 mg orally once every day, fluid restriction to 1250 mL orally once every day, input and output and daily weight, physical therapy evaluation social work administrator consultation for discharge planning and possible subacute rehab physician. 03/27: Patient sitting up in a chair eating his right breast, he denies any chest pain, shortness breath, he is coughing less, he has no abdominal pain, he has not had a bowel movement, he denies any nausea or vomiting, he seems to be tolerating her treatment very well, we will consult physical therapy and social work administrator for possible discharge planning to [facility]. REVIEW OF SYSTEMS: Constitutional: No documented fever, no chills, no night sweats. No weight change. No weakness, fatigue or lethargy. No daytime sleepiness. HEENT: No headache. No blurred vision or double vision, no loss of vision. No loss of Hearing, no ringing in the ears, no dizziness. No nasal drainage or congestion. No epistaxis. No sore throat. Lungs: No shortness of breath, no cough, no sputum production. No wheezing. Reports dyspnea with activity. Cardiovascular: No chest pain, no lower extremity edema. No palpitations. No paroxysmal nocturnal dyspnea. No orthopnea. No lightheadedness or dizziness. No syncopal episodes. Abdominal: Reports abdominal pain. No nausea, vomiting. No diarrhea. No constipation. No bloody or tarry stools reports loss of appetite. Genitourinary: No dysuria, increased frequency, urgency. No urinary retention. Musculoskeletal: No myalgias. No muscle weakness, no gait dysfunction, no frequent falls. No back pain. No neck pain. Integumentary: No wounds, no lesions. No rash or pruritus. No unusual bruising. No change in hair or nails. Neurologic: No aphasia. No facial droop. No change in mentation. No head injury. No headache. No paralysis. No paresthesia. Psychiatric: No depression. No anxiety. No mood swings. Endocrine: No abnormal blood sugars. No weight change. PHYSICAL EXAMINATION: General: 72-year-old male lying down in bed in no distress HEENT: Head is atraumatic, normocephalic, pupils were equal round reactive to light and recommendation, extraocular muscle movement were intact, sclera nonicteric, conjunctivae were pale, mucous membranes of the mouth are somewhat dry. Neck: Supple, no JVP, normal carotid upstroke bilaterally, no lymphadenopathy. Chest: Decreased breath sounds at the bases, few rhonchi, no expiratory wheezes, no chest wall tenderness, no intercostal retractions. Heart: First heart sound is normal, second heart sounds normal, there is systolic ejection murmur 2/6 located in the left sternal border. Abdomen: Soft, nontender, nondistended, positive bowel sounds. Extremities: There is +1 edema no calf tenderness DP +2 bilaterally. Neurologic examination: Patient is awake alert and oriented X 3, cranial nerves II-12 appear grossly intact, muscle power were 5 out of 5 in upper extremities and 3 out of 5 in bilateral lower extremities, deep tendon reflexes normal bilaterally. ASSESSMENT AND PLAN: 1. Acute hypoxemic respiratory failure due to acute on chronic diastolic heart failure due to the fact the patient did not take his medication over the last 2 days, patient is on Lasix 40 mg IV push every 12 hours, monitor input and output and daily weight, continue spironolactone 25 mg orally once every day, continue patient on Farxiga 5 mg orally once every day, metoprolol 25 mg orally twice every day, echocardiogram for evaluation of LV function, cardiology consultatio n. 2. Bilateral lower extremity venous stasis with skin tear. Continue local skin care, continue diuretics, keep leg elevated discontinue IV vancomycin. 3. COPD/moderate persistent asthma and not in exacerbation with chronic hypoxemic respiratory failure continue oxygen support continue DuoNeb 3 mg nebulization 4 times every day, continue prednisone 60 mg orally once every day. 4. Paroxysmal atrial for ablation. Continue patient on metoprolol 25 mg orally twice every day, continue warfarin 4 mg once every day, monitor PT and INR. 5. Hypertension and hypertensive cardio vascular disease. Continue patient on metoprolol 25 mg orally twice every day, monitor the patient blood pressure very closely. 6. Hyperlipidemia. Continue patient on atorvastatin 20 mg orally once every day, monitor lipid panel, keep LDL 55-70. 7. Enlarged prostate. Continue patient on tamsulosin 0.4 mg orally once every day. 8. Anxiety disorder. Continue patient on sertraline 100 mg orally once every day. 9. Neuropathy. Continue patient on gabapentin 300 mg at bedtime. 10. DVT prophylaxis. Continue warfarin 4 mg at bedtime. Monitor PT and INR. 11. GI prophylaxis. Continue patient on Protonix 40 mg orally once every day. 12. Constipation start the patient on Senokot 2 tablet at bedtime along with MiraLAX 17 g in 8 ounces of water once every day. 13. Medical debility. Physical therapy evaluation 14. social worker clinical consultation for discharge planning. Objective - Vital Signs Vital signs: Vital Signs Temp 97.9 F 03/27/23 16:16 Pulse 60 03/27/23 16:16 Resp 18 03/27/23 16:16 BP 118/60 03/27/23 16:16 Pulse Ox 94 L 03/27/23 16:16 FiO2 Intake & Output 03/27/23 03/27/23 03/28/23 06:59 18:59 06:59 Intake Total 298 Output Total 600 1700 Balance -600 -1402 Weight 133.5 kg Intake: Oral 298 Output: Urine 600 1700 Other: Voiding Method External Catheter External Catheter # Voids 2 # Bowel Movements 1 - Labs CBC & Chem 7: 03/27/23 08:08 03/27/23 06:18 Labs: Abnormal Lab Results - Last 24 Hours (Table) 03/27/23 03/27/23 03/27/23 Range/Units 06:18 08:08 08:08 WBC 11.6 H (3.8-10.6) k/uL RBC 3.80 L (4.30-5.90) m/uL Hgb 10.0 L (13.0-17.5) gm/dL Hct 33.0 L (39.0-53.0) % MCHC 30.4 L (31.0-37.0) g/dL RDW 17.3 H (11.5-15.5) % Plt Count 145 L (150-450) k/uL Neutrophils # 9.3 H (1.3-7.7) k/uL PT 22.0 H (9.0-12.0) sec INR 2.3 H (<1.2) BUN 50 H (9-20) mg/dL Creatinine 1.44 H (0.66-1.25) mg/dL Calcium 8.0 L (8.4-10.2) mg/dL ALT 58 H (4-49) U/L Total Protein 5.7 L (6.3-8.2) g/dL Albumin 3.0 L (3.5-5.0) g/dL Microbiology - Last 24 Hours (Table) 03/26/23 12:42 Anaerobic Culture - Preliminary Leg - Right 03/26/23 12:42 Wound Culture - Preliminary Leg - Right
[2023-03-28] MEDS ORDERED: diphenhydrAMINE 25 MG CAP PO PRN (08:40)
[2023-03-28 09:03] LABS: Anisocytosis Slight; Basophils % (A) 0 %; Eosinophils % (A) 0 %; HCT 34.5 % (39.0-53.0); HGB 10.5 gm/dL (13.0-17.5); Hypochromasia Moderate; Lymphocytes % (A) 8 %; MCH 26.9 pg (25.0-35.0); MCHC 30.5 g/dL (31.0-37.0); MCV 88.2 fL (80.0-100.0); Mean Platelet Volume 7.2; Monocytes # (A) 0.8 k/uL (0-1.0); Monocytes % (A) 6 %; Neutrophils # (A) 10.3 k/uL (1.3-7.7); Neutrophils % (A) 84 %; Platelet Count 154 k/uL (150-450); RBC 3.92 m/uL (4.30-5.90); WBC 12.2 k/uL (3.8-10.6)
[2023-03-28] MEDS: IPRATROPIUM-ALBUTEROL 3 ML NEB INHALATION SCH ×4 (09:07→20:43)
[2023-03-28 09:13] LABS: Albumin 3.3 g/dL (3.5-5.0); Calcium 8.3 mg/dL (8.4-10.2); Potassium 4.2 mmol/L (3.5-5.1); Total Protein 6.1 g/dL (6.3-8.2)
[2023-03-28 09:21] LABS: INR 2.5 (<1.2); Prothrombin Time 24.1 sec (9.0-12.0)
--- NOTE | 2023-03-28 09:42 | CA ---
Transthoracic Echo Report Name: Devyn Rodriguez Age: 72 Gender: M : 1950 Exam Date: 03/27/2023 09:18 Exam Location: [facility] Echo Ht (in): 65 Wt (lb): 294 Ordering Physician: Naga Noe MD Attending/Referring Phys: Certified Ski Patroller Nan Macias RDCS Procedure CPT: Indications: chf Cardiac Hx: Technical Quality: Technically difficult study Contrast 1: Total Dose (mL): Contrast 2: Total Dose (mL): MEASUREMENTS (Male / Female) Normal Values 2D ECHO LV Diastolic Diameter PLAX 6.2 cm 4.2 - 5.9 / 3.9 - 5.3 cm LV Systolic Diameter PLAX 3.7 cm IVS Diastolic Thickness 1.3 cm 0.6 - 1.0 / 0.6 - 0.9 cm LVPW Diastolic Thickness 1.2 cm 0.6 - 1.0 / 0.6 - 0.9 cm LV Relative Wall Thickness 0.4 RV Internal Dim ED PLAX 3.6 cm LA Systolic Diameter LX 4.3 cm 3.0 - 4.0 / 2.7 - 3.8 cm LV Diastolic Volume MOD 4C 119.1 cm??? LV Systolic Volume MOD 4C 63.0 cm??? LV Ejection Fraction MOD 4C 47.1 % LV Diastolic Length 4C 9.3 cm LV Systolic Length 4C 7.1 cm LA Volume 83.9 cm??? 18 - 58 / 22 - 52 cm??? M-MODE Aortic Root Diameter MM 4.3 cm MV E Point Septal Separation 0.6 cm AV Cusp Separation MM 2.7 cm DOPPLER AV Peak Velocity 134.9 cm/s AV Peak Gradient 7.3 mmHg MV Area PHT 2.8 cm??? Mitral E Point Velocity 115.2 cm/s Mitral A Point Velocity 50.3 cm/s Mitral E to A Ratio 2.3 MV Deceleration Time 266.7 ms MV E' Velocity 7.9 cm/s Mitral E to MV E' Ratio 14.6 TR Peak Velocity 262.7 cm/s TR Peak Gradient 27.6 mmHg Right Ventricular Systolic Press 31.3 mmHg FINDINGS Left Ventricle Left ventricular ejection fraction is estimated at 50-55 %. Mildly increased septal wall thickness. Mildly increased left ventricular diastolic diameter. Right Ventricle Mild right ventricular dilatation. Right ventricular systolic pressure within normal limits. Right Atrium Normal right atrial size. Left Atrium Mildly increased left atrial diameter. Severely increased left atrial volume. Mildly increased left atrial area. Mitral Valve Mitral valve thickened. Mitral annular calcification. Aortic Valve Trileaflet aortic valve. No aortic valve stenosis or regurgitation. Tricuspid Valve Structurally normal tricuspid valve. Mild tricuspid regurgitation. Pulmonic Valve Structurally normal pulmonic valve. Trace pulmonic regurgitation. Pericardium Normal pericardium. No pericardial effusion. Aorta Moderate aortic dilatation at the level of the sinuses of valsalva 43 mm CONCLUSIONS Technically difficult study for interpretation Normal LV systolic function Mitral annular calcification Aortic sclerosis Previewed by: Dr. Prince Ngo MD (Electronically Signed) Final Date: 28 March 2023 09:42
[2023-03-28] MEDS: SENNOSIDES-DOCUSATE SODIUM 1 EACH TAB PO SCH ×2 (09:51→20:19)
[2023-03-28] MEDS: polyethylene glycoL 3350 17 GM POWD.PACK PO SCH (09:51)
--- NOTE | 2023-03-28 10:17 | P.PN ---
Subjective History of present illness: Patient is a pleasant 72-year-old male with significant past medical history of congestive heart failure, asthma, hypertension who presented to the emergency department with complaints of worsening shortness of breath and bilateral lower extremity edema. He does not believe he follows with a quill skinner. He was recently at [facility] for 11 days for similar symptoms. He reports that he was discharged approximately 2 days ago and was at home, initially had felt better, however, his shortness of breath got worse and he presented to the emergency department here. He believes that his lower extre mity edema is about the same as it has been, however, right lower extremity was noted to be infected and he was started on IV vancomycin. He does appear short of breath with talking sitting up right in the chair, he is on 5 L nasal cannula O2. He is on Coumadin however he does not know exactly what this is for, there is mention of paroxysmal a-fib in records from [facility]. Labs reviewed: INR 2.0, troponin negative 1, BNP 2310, WBC 11.5, hemoglobin 10.4, platelet 36, creatinine 1.27. EKG shows sinus rhythm with sinus arrhythmia 61 bpm. Chest x- ray shows CHF exacerbation, cardiomegaly with mildmoderate interstitial edema and central alveolar edema suspected and tiny bilateral pleural effusions. 03/28 Patient seen and examined. Patient has been diuresing well with creatinine mildly increased to 1.5. He admits to shortness of breath as well as a lower extremity is slowly improving. Echocardiogram was repeated with left ventricular ejection fraction 50-55%, mild right ventricular dilation, somewhat technically difficult with moderate aortic root dilation 4.3 cm. PHYSICAL EXAMINATION: This is a 72-year-old male in no apparent distress at the time of my examination. HEENT: Head is atraumatic, normocephalic. Pupils are equal, round. Sclerae anicteric. Conjunctivae are clear. Mucous membranes of the mouth are moist. Neck is supple. There is no jugular venous distention. No carotid bruit is heard. CHEST EXAMINATION: Lungs are diminished with wheezes throughout. On NC O2. Appears short of breath with speaking HEART EXAMINATION: Heart regular rate and rhythm. S1, S2 heard. No murmurs, gallops or rub. ABDOMEN: Soft, nontender. Bowel sounds are heard. EXTREMITIES: Bilateral lower extremity edema 2+ pitting up to the knee, both shins are wrapped in Kerlix. NEUROLOGIC EXAMINATION: Patient is awake, alert and oriented x3. IMPRESSION AND PLAN: Acute on chronic diastolic heart failure Acute on chronic respiratory failure likely multifactorial related to heart failure as well as COPD Hypertension Shortness of breath Asthma Lower extremity edema, likely component of venous insufficiency as well Right lower extremity cellulitis Mild aortic root dilation Mild ELIA PLAN: Patient is slowly improving with mild kidney injury. They be partially related to lower blood pressures. Stop spironolactone as he has been borderline hypotension and continue Lasix for another day and monitor response. Further recommendations to follow. Objective - Vital Signs Vital signs: Vital Signs Temp 97.8 F 03/28/23 08:02 Pulse 68 03/28/23 09:22 Resp 18 03/28/23 08:02 BP 136/79 03/28/23 08:02 Pulse Ox 94 L 03/28/23 09:07 FiO2 Intake & Output 03/27/23 03/28/23 03/28/23 18:59 06:59 18:59 Intake Total 298 1090 Output Total 1700 1050 Balance -1402 -1050 1090 Weight 131.5 kg Intake: IV 10 Invasive Line 2 10 Oral 298 1080 Output: Urine 1700 1050 Other: Voiding Method External Catheter External Catheter External Catheter # Bowel Movements 1 - Labs CBC & Chem 7: 03/28/23 08:20 03/28/23 08:20 Labs: Abnormal Lab Results - Last 24 Hours (Table) 03/28/23 03/28/23 03/28/23 Range/Units 08:20 08:20 08:20 WBC 12.2 H (3.8-10.6) k/uL RBC 3.92 L (4.30-5.90) m/uL Hgb 10.5 L (13.0-17.5) gm/dL Hct 34.5 L (39.0-53.0) % MCHC 30.5 L (31.0-37.0) g/dL RDW 17.0 H (11.5-15.5) % Neutrophils # 10.3 H (1.3-7.7) k/uL PT 24.1 H (9.0-12.0) sec INR 2.5 H (<1.2) Carbon Dioxide 32 H (22-30) mmol/L BUN 52 H (9-20) mg/dL Creatinine 1.52 H (0.66-1.25) mg/dL Glucose 114 H (74-99) mg/dL Calcium 8.3 L (8.4-10.2) mg/dL ALT 51 H (4-49) U/L Total Protein 6.1 L (6.3-8.2) g/dL Albumin 3.3 L (3.5-5.0) g/dL Microbiology - Last 24 Hours (Table) 03/26/23 12:42 Wound Culture - Preliminary Leg - Right
[2023-03-28] MEDS: WARFARIN 2 MG TAB PO SCH (16:33)
[2023-03-28] MEDS: GABAPENTIN 300 MG CAP PO SCH (20:19)
[2023-03-28] MEDS: MONTELUKAST 10 MG TAB PO SCH (20:19)
[2023-03-28] MEDS: ACETAMINOPHEN TAB 500 MG TAB PO PRN (20:23)
[2023-03-28] MEDS: BACLOFEN 10 MG TAB PO PRN (21:58)
[2023-03-29] MEDS: ACETAMINOPHEN TAB 500 MG TAB PO PRN ×2 (01:11→19:39)
--- NOTE | 2023-03-29 06:56 | P.PN ---
Subjective Progress Note Date: 03/28/23 HISTORY OF PRESENT ILLNESS: This is a 72-year-old male with a previous medical history significant for hypertension and hypertensive cardio vascular disease, hyperlipidemia, obesity with obstructive sleep apnea and obesity hypoventilation syndrome, chronic diastolic heart failure, asthma, hypothyroidism, anxiety and depressive disorder, peripheral neuropathy, patient was recently discharged from [facility] after he was admitted for 2 week for acute hypoxemic respiratory failure due to acute diastolic heart failure as well as bilateral lower extremity cellulitis he was given 2 week course of Levaquin and vancomycin along with IV diuretics in the form of Lasix 80 mg IV push every 12 hours as well as Zaroxolyn, patient was just left the hospital 2 days ago on 03/24/2023, and I received a call yesterday from his caregiver stating that the patient is not able to care for himself at this time, he would've the patient never voiced that he wants to go to [facility], patient apparently had stopped his Lasix at home, he did not have his medications sorted, so he ended up coming to the emergency department at [facility] this time and he was seen in the em ergency department with Dr. Noe who stated that the patient was hypoxemic at 88% patient was supposed to be on oxygen 2-1/2 L nasal cannula, which she was not on and the patient was admitted to the hospital for acute diastolic heart failure his laboratory evaluation were slightly elevated leukocyte count. Otherwise patient was doing okay he does not appear to be in acute distress at this time, because of the presentation was started on Lasix 80 mg IV push every 12 hours, echocardiogram and cardiology consultation, patient was kept on Jardiance or its substitute Farxiga 5 mg orally once every day, fluid restriction to 1250 mL orally once every day, input and output and daily weight, physical therapy evaluation healthcare social worker consultation for discharge planning and possible subacute rehab physician. 03/27: Patient sitting up in a chair eating his right breast, he denies any chest pain, shortness breath, he is coughing less, he has no abdominal pain, he has not had a bowel movement, he denies any nausea or vomiting, he seems to be tolerating her treatment very well, we will consult physical therapy and healthcare social worker for possible discharge planning to [facility]. 03/28: Patient sitting up in a recliner chair he is complaining of increased itching all over his body, he denies any chest pain, he denies any coughing, he continues to be some shortness of breath, he continues to have swelling in both lower extremity's, it does appear to have a skin tear on the right lower e xtremity present on admission after risk ended on the bathtub, patient did have a bowel movement, continue with physical therapy evaluation, patient will likely need to go to subacute rehab the patient hopefully tomorrow morning or early next week. REVIEW OF SYSTEMS: Constitutional: No documented fever, no chills, no night sweats. No weight change. No weakness, fatigue or lethargy. No daytime sleepiness. HEENT: No headache. No blurred vision or double vision, no loss of vision. No loss of Hearing, no ringing in the ears, no dizziness. No nasal drainage or congestion. No epistaxis. No sore throat. Lungs: No shortness of breath, no cough, no sputum production. No wheezing. Reports dyspnea with activity. Cardiovascular: No chest pain, no lower extremity edema. No palpitations. No paroxysmal nocturnal dyspnea. No orthopnea. No lightheadedness or dizziness. No syncopal episodes. Abdominal: Reports abdominal pain. No nausea, vomiting. No diarrhea. No constipation. No bloody or tarry stools reports loss of appetite. Genitourinary: No dysuria, increased frequency, urgency. No urinary retention. Musculoskeletal: No myalgias. No muscle weakness, no gait dysfunction, no frequent falls. No back pain. No neck pain. Integumentary: No wounds, no lesions. No rash or pruritus. No unusual bruising. No change in hair or nails. Neurologic: No aphasia. No facial droop. No change in mentation. No head injury. No headache. No paralysis. No paresthesia. Psychiatric: No depression. No anxiety. No mood swings. Endocrine: No abnormal blood sugars. No weight change. PHYSICAL EXAMINATION: General: 72-year-old male lying down in bed in no distress HEENT: Head is atraumatic, normocephalic, pupils were equal round reactive to light and recommendation, extraocular muscle movement were intact, sclera nonicteric, conjunctivae were pale, mucous membranes of the mouth are somewhat dry. Neck: Supple, no JVP, normal carotid upstroke bilaterally, no lymphadenopathy. Chest: Decreased breath sounds at the bases, few rhonchi, no expiratory wheezes, no chest wall tenderness, no intercostal retractions. Heart: First heart sound is normal, second heart sounds normal, there is systolic ejection murmur 2/6 located in the left sternal border. Abdomen: Soft, nontender, nondistended, positive bowel sounds. Extremities: There is +1 edema no calf tenderness DP +2 bilaterally. Neurologic examination: Patient is awake alert and oriented X 3, cranial nerves II-12 appear grossly intact, muscle power were 5 out of 5 in upper extremities and 3 out of 5 in bilateral lower extremities, deep tendon reflexes normal bilaterally. ASSESSMENT AND PLAN: 1. Acute hypoxemic respiratory failure due to acute on chronic diastolic heart failure due to the fact the patient did not take his medication over the last 2 days, patient is on Lasix 40 mg IV push every 12 hours, monitor input and output and daily weight, continue spironolactone 25 mg orally once every day, continue patient on Farxiga 5 mg orally once every day, metoprolol 25 mg orally twice every day, echocardiogram showed ejection fraction 55-60%, normal RV, and aortic sclerosis without stenosis, minimal dilation of the aortic root. 2. Bilateral lower extremity venous stasis with skin tear. Continue local skin care, continue diuretics, keep leg elevated and apply Vaseline gauze and wrap with Toribio wrap. 3. COPD/moderate persistent asthma and not in exacerbation with chronic hypoxemic respiratory failure continue oxygen support continue DuoNeb 3 mg nebulization 4 times every day, continue prednisone 60 mg orally once every day. 4. Paroxysmal atrial for ablation. Continue patient on metoprolol 25 mg orally twice every day, continue warfarin 4 mg once every day, monitor PT and INR. 5. Hypertension and hypertensive cardiovascular disease. Continue patient on metoprolol 25 mg orally twice every day, monitor the patient blood pressure very closely. 6. Hyperlipidemia. Continue patient on atorvastatin 20 mg orally once every day, monitor lipid panel, keep LDL 55-70. 7. Enlarged prostate. Continue patient on tamsulosin 0.4 mg orally once every day. 8. Anxiety disorder. Continue patient on sertraline 100 mg orally once every day. 9. Neuropathy. Continue patient on gabapentin 300 mg at bedtime. 10. DVT prophylaxis. Continue warfarin 4 mg at bedtime. Monitor PT and INR. 11. GI prophylaxis. Continue patient on Protonix 40 mg orally once every day. 12. Constipation start the patient on Senokot 2 tablet at bedtime along with MiraLAX 17 g in 8 ounces of water once every day. 13. Medical debility. Physical therapy evaluation 14. straightedge worker consultation for discharge planning. Objective - Vital Signs Vital signs: Vital Signs Temp 97.8 F 03/28/23 08:02 Pulse 61 03/28/23 08:02 Resp 18 03/28/23 08:02 BP 136/79 03/28/23 08:02 Pulse Ox 94 L 03/28/23 08:02 FiO2 Intake & Output 03/27/23 03/28/23 03/28/23 18:59 06:59 18:59 Intake Total 298 Output Total 1700 1050 Balance -1402 -1050 Weight 131.5 kg Intake: Oral 298 Output: Urine 1700 1050 Other: Voiding Method External Catheter External Catheter # Bowel Movements 1 - Labs CBC & Chem 7: 03/28/23 08:20 03/28/23 08:20 Labs: Abnormal Lab Results - Last 24 Hours (Table) 03/27/23 03/27/23 03/27/23 Range/Units 06:18 08:08 08:08 WBC 11.6 H (3.8-10.6) k/uL RBC 3.80 L (4.30-5.90) m/uL Hgb 10.0 L (13.0-17.5) gm/dL Hct 33.0 L (39.0-53.0) % MCHC 30.4 L (31.0-37.0) g/dL RDW 17.3 H (11.5-15.5) % Plt Count 145 L (150-450) k/uL Neutrophils # 9.3 H (1.3-7.7) k/uL PT 22.0 H (9.0-12.0) sec INR 2.3 H (<1.2) BUN 50 H (9-20) mg/dL Creatinine 1.44 H (0.66-1.25) mg/dL Calcium 8.0 L (8.4-10.2) mg/dL ALT 58 H (4-49) U/L Total Protein 5.7 L (6.3-8.2) g/dL Albumin 3.0 L (3.5-5.0) g/dL Microbiology - Last 24 Hours (Table) 03/26/23 12:42 Wound Culture - Preliminary Leg - Right
[2023-03-29 08:13] LABS: INR 2.6 (<1.2); Prothrombin Time 25.8 sec (9.0-12.0)
[2023-03-29] MEDS: IPRATROPIUM-ALBUTEROL 3 ML NEB INHALATION SCH ×4 (08:48→20:30)
[2023-03-29] MEDS: polyethylene glycoL 3350 17 GM POWD.PACK PO SCH (09:40)
[2023-03-29] MEDS: SERTRALINE 100 MG TAB PO SCH (09:40)
[2023-03-29] MEDS: DAPAGLIFLOZIN PROPANEDIOL 5 MG TABLET PO SCH (09:40)
[2023-03-29] MEDS: CHOLECALCIFEROL 25 MCG (1000 IU) TABLET PO SCH (09:40)
[2023-03-29] MEDS: SENNOSIDES-DOCUSATE SODIUM 1 EACH TAB PO SCH ×2 (09:40→19:38)
[2023-03-29] MEDS: PANTOPRAZOLE 40 MG TABLET PO SCH (09:40)
[2023-03-29] MEDS: allopurinoL 100 MG TAB PO SCH (09:40)
[2023-03-29] MEDS: TAMSULOSIN 0.4 MG CAP.ER.24H PO SCH (09:40)
[2023-03-29] MEDS: FUROSEMIDE 10 MG/ML 4 ML VIAL IV SCH ×2 (09:40→19:38)
[2023-03-29] MEDS: predniSONE 20 MG TAB PO SCH (09:41)
[2023-03-29] MEDS: ATORVASTATIN 20 MG TAB PO SCH (09:41)
[2023-03-29] MEDS: METOPROLOL TARTRATE 25 MG TAB PO SCH ×2 (09:41→19:38)
--- NOTE | 2023-03-29 11:31 | P.PN ---
Subjective Progress Note Date: 03/29/23 HISTORY OF PRESENT ILLNESS: This is a 72-year-old male with a previous medical history significant for hypertension and hypertensive cardio vascular disease, hyperlipidemia, obesity with obstructive sleep apnea and obesity hypoventilation syndrome, chronic diastolic heart failure, asthma, hypothyroidism, anxiety and depressive disorder, peripheral neuropathy, patient was recently discharged from [facility] after he was admitted for 2 week for acute hypoxemic respiratory failure due to acute diastolic heart failure as well as bilateral lower extremity cellulitis he was given 2 week course of Levaquin and vancomycin along with IV diuretics in the form of Lasix 80 mg IV push every 12 hours as well as Zaroxolyn, patient was just left the hospital 2 days ago on 03/24/2023, and I received a call yesterday from his caregiver stating that the patient is not able to care for himself at this time, he would've the patient never voiced that he wants to go to prison, patient apparently had stopped his Lasix at home, he did not have his medications sorted, so he ended up coming to the emergency department at [facility] this time and he was seen in the em ergency department with Dr. Noe who stated that the patient was hypoxemic at 88% patient was supposed to be on oxygen 2-1/2 L nasal cannula, which she was not on and the patient was admitted to the hospital for acute diastolic heart failure his laboratory evaluation were slightly elevated leukocyte count. Otherwise patient was doing okay he does not appear to be in acute distress at this time, because of the presentation was started on Lasix 80 mg IV push every 12 hours, echocardiogram and cardiology consultation, patient was kept on Jardiance or its substitute Farxiga 5 mg orally once every day, fluid restriction to 1250 mL orally once every day, input and output and daily weight, physical therapy evaluation nephrology social worker consultation for discharge planning and possible subacute rehab physician. 03/27: Patient sitting up in a chair eating his right breast, he denies any chest pain, shortness breath, he is coughing less, he has no abdominal pain, he has not had a bowel movement, he denies any nausea or vomiting, he seems to be tolerating her treatment very well, we will consult physical therapy and nephrology social worker for possible discharge planning to [facility]. 03/28: Patient sitting up in a recliner chair he is complaining of increased itching all over his body, he denies any chest pain, he denies any coughing, he continues to be some shortness of breath, he continues to have swelling in both lower extremity's, it does appear to have a skin tear on the right lower e xtremity present on admission after risk ended on the bathtub, patient did have a bowel movement, continue with physical therapy evaluation, patient will likely need to go to subacute rehab the patient hopefully tomorrow morning or early next week. 03/29: Patient sitting up in chair in no apparent distress, he did receive baclofen 10 mg orally twice every day yesterday because of the pain in the lower back, that radiated to the left lower extremity, he denies any chest pain, his less short of breath, he continues to be on oxygen, he continues to be on IV diuretics, he has been followed by cardiology, echocardiogram was reviewed and did show evidence of normal ejection fraction and mild aortic sclerosis. bushel worker for discharge planning. REVIEW OF SYSTEMS: Constitutional: No documented fever, no chills, no night sweats. No weight change. No weakness, fatigue or lethargy. No daytime sleepiness. HEENT: No headache. No blurred vision or double vision, no loss of vision. No loss of Hearing, no ringing in the ears, no dizziness. No nasal drainage or congestion. No epistaxis. No sore throat. Lungs: No shortness of breath, no cough, no sputum production. No wheezing. Reports dyspnea with activity. Cardiovascular: No chest pain, no lower extremity edema. No palpitations. No paroxysmal nocturnal dyspnea. No orthopnea. No lightheadedness or dizziness. No syncopal episodes. Abdominal: Reports abdominal pain. No nausea, vomiting. No diarrhea. No constipation. No bloody or tarry stools reports loss of appetite. Genitourinary: No dysuria, increased frequency, urgency. No urinary retention. Musculoskeletal: No myalgias. No muscle weakness, no gait dysfunction, no frequent falls. No back pain. No neck pain. Integumentary: No wounds, no lesions. No rash or pruritus. No unusual bruising. No change in hair or nails. Neurologic: No aphasia. No facial droop. No change in mentation. No head injury. No headache. No paralysis. No paresthesia. Psychiatric: No depression. No anxiety. No mood swings. Endocrine: No abnormal blood sugars. No weight change. PHYSICAL EXAMINATION: General: 72-year-old male lying down in bed in no distress HEENT: Head is atraumatic, normocephalic, pupils were equal round reactive to light and recommendation, extraocular muscle movement were intact, sclera nonicteric, conjunctivae were pale, mucous membranes of the mouth are somewhat dry. Neck: Supple, no JVP, normal carotid upstroke bilaterally, no lymphadenopathy. Chest: Decreased breath sounds at the bases, few rhonchi, no expiratory wheezes, no chest wall tenderness, no intercostal retractions. Heart: First heart sound is normal, second heart sounds normal, there is systolic ejection murmur 2/6 located in the left sternal border. Abdomen: Soft, nontender, nondistended, positive bowel sounds. Extremities: There is +1 edema no calf tenderness DP +2 bilaterally. Neurologic examination: Patient is awake alert and oriented X 3, cranial nerves II-12 appear grossly intact, muscle power were 5 out of 5 in upper extremities and 3 out of 5 in bilateral lower extremities, deep tendon reflexes normal bilaterally. ASSESSMENT AND PLAN: 1. Acute hypoxemic respiratory failure due to acute on chronic diastolic heart failure due to the fact the patient did not take his medication over the last 2 days, patient is on Lasix 40 mg IV push every 12 hours, monitor input and output and daily weight, continue spironolactone 25 mg orally once every day, continue patient on Farxiga 5 mg orally once every day, metoprolol 25 mg orally twice every day, echocardiogram showed ejection fraction 55-60%, normal RV, and aortic sclerosis without stenosis, minimal dilation of the aortic root. 2. Bilateral lower extremity venous stasis with skin tear. Continue local skin care, continue diuretics, keep leg elevated and apply Vaseline gauze and wrap with Toribio wrap. 3. COPD/moderate persistent asthma and not in exacerbation with chronic hypoxemic respiratory failure continue oxygen support continue DuoNeb 3 mg nebulization 4 times every day, continue prednisone 60 mg orally once every day. 4. Paroxysmal atrial for ablation. Continue patient on metoprolol 25 mg orally twice every day, continue warfarin 4 mg once every day, monitor PT and INR. 5. Hypertension and hypertensive cardiovascular disease. Continue patient on metoprolol 25 mg orally twice every day, monitor the patient blood pressure very closely. 6. Hyperlipidemia. Continue patient on atorvastatin 20 mg orally once every day, monitor lipid panel, keep LDL 55-70. 7. Enlarged prostate. Continue patient on tamsulosin 0.4 mg orally once every day. 8. Anxiety disorder. Continue patient on sertraline 100 mg orally once every day. 9. Neuropathy. Continue patient on gabapentin 300 mg at bedtime. 10. DVT prophylaxis. Continue warfarin 4 mg at bedtime. Monitor PT and INR. 11. GI prophylaxis. Continue patient on Protonix 40 mg orally once every day. 12. Constipation start the patient on Senokot 2 tablet at bedtime along with MiraLAX 17 g in 8 ounces of water once every day. 13. Medical debility. Physical therapy evaluation 14. bushel worker consultation for discharge planning. Objective - Vital Signs Vital signs: Vital Signs Temp 98.1 F 03/28/23 20:00 Pulse 56 L 03/29/23 04:00 Resp 18 03/29/23 04:00 BP 116/65 03/29/23 04:00 Pulse Ox 95 03/29/23 04:00 FiO2 Intake & Output 03/28/23 03/29/23 03/29/23 18:59 06:59 18:59 Intake Total 1938 20 Output Total 600 1550 Balance 1338 -1530 Weight 133.9 kg Intake: IV 20 20 Invasive Line 2 20 20 Oral 1918 Output: Urine 600 1550 Other: Voiding Method External Catheter External Catheter - Labs CBC & Chem 7: 03/28/23 08:20 03/28/23 08:20 Labs: Abnormal Lab Results - Last 24 Hours (Table) 03/28/23 03/28/23 03/28/23 Range/Units 08:20 08:20 08:20 WBC 12.2 H (3.8-10.6) k/uL RBC 3.92 L (4.30-5.90) m/uL Hgb 10.5 L (13.0-17.5) gm/dL Hct 34.5 L (39.0-53.0) % MCHC 30.5 L (31.0-37.0) g/dL RDW 17.0 H (11.5-15.5) % Neutrophils # 10.3 H (1.3-7.7) k/uL PT 24.1 H (9.0-12.0) sec INR 2.5 H (<1.2) Carbon Dioxide 32 H (22-30) mmol/L BUN 52 H (9-20) mg/dL Creatinine 1.52 H (0.66-1.25) mg/dL Glucose 114 H (74-99) mg/dL Calcium 8.3 L (8.4-10.2) mg/dL ALT 51 H (4-49) U/L Total Protein 6.1 L (6.3-8.2) g/dL Albumin 3.3 L (3.5-5.0) g/dL Microbiology - Last 24 Hours (Table) 03/26/23 12:42 Anaerobic Culture - Preliminary Leg - Right 03/26/23 12:42 Gram Stain - Final Leg - Right Wound Culture - Final 03/26/23 12:30 Blood Culture - Preliminary Blood 03/26/23 12:43 Blood Culture - Preliminary Blood
--- NOTE | 2023-03-29 12:41 | P.PN ---
Subjective Progress Note Date: 03/29/23 Patient is a pleasant 72-year-old male with significant past medical history of congestive heart failure, asthma, hypertension who presented to the emergency department with complaints of worsening shortness of breath and bilateral lower extremity edema. He does not believe he follows with a field sales engineer. He was recently at [facility] for 11 days for similar symptoms. He reports that he was discharged approximately 2 days ago and was at home, initially had felt better, however, his shortness of breath got worse and he presented to the emergency department here. He believes that his lower extremity edema is about the same as it has been, however, right lower extremity was noted to be infected and he was started on IV vancomycin. He does appear short of breath with talking sitting up right in the chair, he is on 5 L nasal cannula O2. He is on Coumadin however he does not know exactly what this is for, there is mention of paroxysmal a-fib in records from [facility]. Labs reviewed: INR 2.0, troponin negative 1, BNP 2310, WBC 11.5, hemoglobin 10.4, platelet 36, creatinine 1.27. EKG shows sinus rhythm with sinus arrhythmia 61 bpm. Chest x-ray shows CHF exacerbation, cardiomegaly with mildmoderate interstitial edema and central alveolar edema suspected and tiny bilateral pleural effusions. 03/28 Patient seen and examined. Patient has been diuresing well with creatinine mildly increased to 1.5. He admits to shortness of breath as well as a lower extremity is slowly improving. Echocardiogram was repeated with left ventricular ejection fraction 50-55%, mild right ventricular dilation, somewhat technically difficult with moderate aortic root dilation 4.3 cm. 03/29 Sitting up in chair, NC 4L O2. He is feeling better. BLE edema continues to improve. Creat pending. PHYSICAL EXAMINATION: This is a 72-year-old male in no apparent distress at the time of my examination. HEENT: Head is atraumatic, normocephalic. Pupils are equal, round. Sclerae anicteric. Conjunctivae are clear. Mucous membranes of the mouth are moist. Neck is supple. There is no jugular venous distention. No carotid bruit is heard. CHEST EXAMINATION: Lungs are diminished with wheezes throughout. On NC O2. Appears short of breath with speaking HEART EXAMINATION: Heart regular rate and rhythm. S1, S2 heard. No murmurs, gallops or rub. ABDOMEN: Soft, nontender. Bowel sounds are heard. EXTREMITIES: Bilateral lower extremity edema 1+ pitting up to the knee, both shins are wrapped in Kerlix. NEUROLOGIC EXAMINATION: Patient is awake, alert and oriented x3. IMPRESSION AND PLAN: Acute on chronic diastolic heart failure Acute on chronic respiratory failure likely multifactorial related to heart failure as well as COPD Hypertension Shortness of breath Asthma Lower extremity edema, likely component of venous insufficiency as well Right lower extremity cellulitis Mild aortic root dilation Mild ELIA PLAN: Patient continues to improved. Monitor kidney function, creat pending still this am. Continue diuresis, Lasix for another day and monitor response. OK for fluid restriction of 2000ml per day. Further recommendations to follow. Objective - Vital Signs Vital signs: Vital Signs Temp 96.7 F L 03/29/23 08:00 Pulse 78 03/29/23 09:00 Resp 18 03/29/23 08:00 BP 99/58 03/29/23 08:00 Pulse Ox 96 03/29/23 08:00 FiO2 Intake & Output 03/28/23 03/29/23 03/29/23 18:59 06:59 18:59 Intake Total 1938 20 118 Output Total 600 1550 Balance 1338 -1530 118 Weight 133.9 kg Intake: IV 20 20 Invasive Line 2 20 20 Oral 1918 118 Output: Urine 600 1550 Other: Voiding Method External Catheter External Catheter External Catheter - Labs CBC & Chem 7: 03/28/23 08:20 03/28/23 08:20 Labs: Abnormal Lab Results - Last 24 Hours (Table) 03/29/23 Range/Units 05:14 PT 25.8 H (9.0-12.0) sec INR 2.6 H (<1.2) Microbiology - Last 24 Hours (Table) 03/26/23 12:30 Blood Culture - Preliminary Blood 03/26/23 12:43 Blood Culture - Preliminary Blood 03/26/23 12:42 Anaerobic Culture - Preliminary Leg - Right 03/26/23 12:42 Gram Stain - Final Leg - Right Wound Culture - Final
[2023-03-29] MEDS: WARFARIN 2 MG TAB PO SCH (17:39)
[2023-03-29] MEDS: MONTELUKAST 10 MG TAB PO SCH (19:38)
[2023-03-29] MEDS: GABAPENTIN 300 MG CAP PO SCH (19:38)
[2023-03-29] MEDS: BACLOFEN 10 MG TAB PO PRN (19:39)
[2023-03-30] MEDS: IPRATROPIUM-ALBUTEROL 3 ML NEB INHALATION SCH ×4 (08:35→20:30)
[2023-03-30] MEDS: ATORVASTATIN 20 MG TAB PO SCH (08:56)
[2023-03-30] MEDS: allopurinoL 100 MG TAB PO SCH (08:56)
[2023-03-30] MEDS: polyethylene glycoL 3350 17 GM POWD.PACK PO SCH (08:56)
[2023-03-30] MEDS: PANTOPRAZOLE 40 MG TABLET PO SCH (08:56)
[2023-03-30] MEDS: predniSONE 20 MG TAB PO SCH (08:56)
[2023-03-30] MEDS: TAMSULOSIN 0.4 MG CAP.ER.24H PO SCH (08:56)
[2023-03-30] MEDS: SERTRALINE 100 MG TAB PO SCH (08:56)
[2023-03-30] MEDS: CHOLECALCIFEROL 25 MCG (1000 IU) TABLET PO SCH (08:56)
[2023-03-30] MEDS: SENNOSIDES-DOCUSATE SODIUM 1 EACH TAB PO SCH ×2 (08:56→20:23)
[2023-03-30] MEDS: METOPROLOL TARTRATE 25 MG TAB PO SCH ×2 (08:56→20:23)
[2023-03-30] MEDS: FUROSEMIDE 10 MG/ML 4 ML VIAL IV SCH (08:57)
[2023-03-30] MEDS: DAPAGLIFLOZIN PROPANEDIOL 5 MG TABLET PO SCH (08:57)
[2023-03-30 09:01] LABS: Calcium 8.5 mg/dL (8.4-10.2); Potassium 4.2 mmol/L (3.5-5.1)
[2023-03-30 09:04] LABS: Prothrombin Time 28.9 sec (9.0-12.0)
[2023-03-30 09:47] LABS: Anisocytosis Slight; Basophils % (A) 0 %; Eosinophils % (A) 0 %; HCT 34.5 % (39.0-53.0); HGB 10.6 gm/dL (13.0-17.5); Hypochromasia Moderate; Lymphocytes # (A) 1.2 k/uL (1.0-4.8); Lymphocytes % (A) 12 %; MCH 27.2 pg (25.0-35.0); MCHC 30.8 g/dL (31.0-37.0); MCV 88.3 fL (80.0-100.0); Mean Platelet Volume 7.3; Monocytes # (A) 0.7 k/uL (0-1.0); Monocytes % (A) 7 %; Neutrophils # (A) 7.5 k/uL (1.3-7.7); Neutrophils % (A) 79 %; Platelet Count 138 k/uL (150-450); RBC 3.91 m/uL (4.30-5.90); RDW 17.2 % (11.5-15.5); WBC 9.5 k/uL (3.8-10.6)
--- NOTE | 2023-03-30 11:28 | P.PN ---
Subjective Progress Note Date: 03/30/23 Patient is a pleasant 72-year-old male with significant past medical history of congestive heart failure, asthma, hypertension who presented to the emergency department with complaints of worsening shortness of breath and bilateral lower extremity edema. He does not believe he follows with a letter of credit document examiner. He was recently at [facility] for 11 days for similar symptoms. He reports that he was discharged approximately 2 days ago and was at home, initially had felt better, however, his shortness of breath got worse and he presented to the emergency department here. He believes that his lower extremity edema is about the same as it has been, however, right lower extremity was noted to be infected and he was started on IV vancomycin. He does appear short of breath with talking sitting up right in the chair, he is on 5 L nasal cannula O2. He is on Coumadin however he does not know exactly what this is for, there is mention of paroxysmal a-fib in records from [facility]. Labs reviewed: INR 2.0, troponin negative 1, BNP 2310, WBC 11.5, hemoglobin 10.4, platelet 36, creatinine 1.27. EKG shows sinus rhythm with sinus arrhythmia 61 bpm. Chest x-ray shows CHF exacerbation, cardiomegaly with mildmoderate interstitial edema and central alveolar edema suspected and tiny bilateral pleural effusions. 03/28 Patient seen and examined. Patient has been diuresing well with creatinine mildly increased to 1.5. He admits to shortness of breath as well as a lower extremity is slowly improving. Echocardiogram was repeated with left ventricular ejection fraction 50-55%, mild right ventricular dilation, somewhat technically difficult with moderate aortic root dilation 4.3 cm. 03/29 Sitting up in chair, NC 4L O2. He is feeling better. BLE edema continues to improve. Creat pending. 03/30 He continues to feel better. Swelling is improving. Creat 1.46. PHYSICAL EXAMINATION: This is a 72-year-old male in no apparent distress at the time of my examination. HEENT: Head is atraumatic, normocephalic. Pupils are equal, round. Sclerae anicteric. Conjunctivae are clear. Mucous membranes of the mouth are moist. Neck is supple. There is no jugular venous distention. No carotid bruit is heard. CHEST EXAMINATION: Lungs are diminished with wheezes throughout. On NC O2. Appears short of breath with speaking HEART EXAMINATION: Heart regular rate and rhythm. S1, S2 heard. No murmurs, gallops or rub. ABDOMEN: Soft, nontender. Bowel sounds are heard. EXTREMITIES: Bilateral lower extremity edema 1+ pitting up to the knee, both shins are wrapped in Kerlix. NEUROLOGIC EXAMINATION: Patient is awake, alert and oriented x3. IMPRESSION AND PLAN: Acute on chronic diastolic heart failure Acute on chronic respiratory failure likely multifactorial related to heart failure as well as COPD Hypertension Shortness of breath Asthma Lower extremity edema, likely component of venous insufficiency as well Right lower extremity cellulitis Mild aortic root dilation Mild ELIA PLAN: Creatinine remains stable. Continue diuresis, IV Lasix for another day and monitor response. Further recommendations to follow. Objective - Vital Signs Vital signs: Vital Signs Temp 97.2 F L 03/30/23 08:00 Pulse 80 03/30/23 08:46 Resp 17 03/30/23 08:00 BP 116/55 03/30/23 08:00 Pulse Ox 90 L 03/30/23 08:00 FiO2 Intake & Output 03/29/23 03/30/23 03/30/23 18:59 06:59 18:59 Intake Total 298 0 Output Total 1750 1140 1200 Balance -1452 -1140 -1200 Weight 130 kg Intake: Oral 298 0 Output: Urine 1750 1140 1200 Other: Voiding Method External Catheter External Catheter External Catheter - Labs CBC & Chem 7: 03/30/23 06:45 03/30/23 06:45 Labs: Abnormal Lab Results - Last 24 Hours (Table) 03/30/23 03/30/23 03/30/23 Range/Units 06:45 06:45 06:45 RBC 3.91 L (4.30-5.90) m/uL Hgb 10.6 L (13.0-17.5) gm/dL Hct 34.5 L (39.0-53.0) % MCHC 30.8 L (31.0-37.0) g/dL RDW 17.2 H (11.5-15.5) % Plt Count 138 L (150-450) k/uL PT 28.9 H (9.0-12.0) sec INR 3.0 H (<1.2) Carbon Dioxide 33 H (22-30) mmol/L BUN 53 H (9-20) mg/dL Creatinine 1.46 H (0.66-1.25) mg/dL Microbiology - Last 24 Hours (Table) 03/26/23 12:30 Blood Culture - Preliminary Blood 03/26/23 12:43 Blood Culture - Preliminary Blood
--- NOTE | 2023-03-30 12:21 | P.PN ---
Subjective Progress Note Date: 03/30/23 HISTORY OF PRESENT ILLNESS: This is a 72-year-old male with a previous medical history significant for hypertension and hypertensive cardio vascular disease, hyperlipidemia, obesity with obstructive sleep apnea and obesity hypoventilation syndrome, chronic diastolic heart failure, asthma, hypothyroidism, anxiety and depressive disorder, peripheral neuropathy, patient was recently discharged from [facility] after he was admitted for 2 week for acute hypoxemic respiratory failure due to acute diastolic heart failure as well as bilateral lower extremity cellulitis he was given 2 week course of Levaquin and vancomycin along with IV diuretics in the form of Lasix 80 mg IV push every 12 hours as well as Zaroxolyn, patient was just left the hospital 2 days ago on 03/24/2023, and I received a call yesterday from his caregiver stating that the patient is not able to care for himself at this time, he would've the patient never voiced that he wants to go to care home, patient apparently had stopped his Lasix at home, he did not have his medications sorted, so he ended up coming to the emergency department at [facility] this time and he was seen in the em ergency department with Dr. Noe who stated that the patient was hypoxemic at 88% patient was supposed to be on oxygen 2-1/2 L nasal cannula, which she was not on and the patient was admitted to the hospital for acute diastolic heart failure his laboratory evaluation were slightly elevated leukocyte count. Otherwise patient was doing okay he does not appear to be in acute distress at this time, because of the presentation was started on Lasix 80 mg IV push every 12 hours, echocardiogram and cardiology consultation, patient was kept on Jardiance or its substitute Farxiga 5 mg orally once every day, fluid restriction to 1250 mL orally once every day, input and output and daily weight, physical therapy evaluation social group worker consultation for discharge planning and possible subacute rehab physician. 03/27: Patient sitting up in a chair eating his right breast, he denies any chest pain, shortness breath, he is coughing less, he has no abdominal pain, he has not had a bowel movement, he denies any nausea or vomiting, he seems to be tolerating her treatment very well, we will consult physical therapy and social group worker for possible discharge planning to [facility]. 03/28: Patient sitting up in a recliner chair he is complaining of increased itching all over his body, he denies any chest pain, he denies any coughing, he continues to be some shortness of breath, he continues to have swelling in both lower extremity's, it does appear to have a skin tear on the right lower e xtremity present on admission after risk ended on the bathtub, patient did have a bowel movement, continue with physical therapy evaluation, patient will likely need to go to subacute rehab the patient hopefully tomorrow morning or early next week. 03/29: Patient sitting up in chair in no apparent distress, he did receive baclofen 10 mg orally twice every day yesterday because of the pain in the lower back, that radiated to the left lower extremity, he denies any chest pain, his less short of breath, he continues to be on oxygen, he continues to be on IV diuretics, he has been followed by cardiology, echocardiogram was reviewed and did show evidence of normal ejection fraction and mild aortic sclerosis. gum worker for discharge planning. 03/30: Patient is sitting up in chair in no distress,we will continue with current treatment paln and diuretics and we will plan on him going to [facility] in [place], patient denies any chest pain, some cough no phlegm production, REVIEW OF SYSTEMS: Constitutional: No documented fever, no chills, no night sweats. No weight change. No weakness, fatigue or lethargy. No daytime sleepiness. HEENT: No headache. No blurred vision or double vision, no loss of vision. No loss of Hearing, no ringing in the ears, no dizziness. No nasal drainage or co ngestion. No epistaxis. No sore throat. Lungs: No shortness of breath, no cough, no sputum production. No wheezing. Reports dyspnea with activity. Cardiovascular: No chest pain, no lower extremity edema. No palpitations. No paroxysmal nocturnal dyspnea. No orthopnea. No lightheadedness or dizziness. No syncopal episodes. Abdominal: Reports abdominal pain. No nausea, vomiting. No diarrhea. No constipation. No bloody or tarry stools reports loss of appetite. Genitourinary: No dysuria, increased frequency, urgency. No urinary retention. Musculoskeletal: No myalgias. No muscle weakness, no gait dysfunction, no frequent falls. No back pain. No neck pain. Integumentary: No wounds, no lesions. No rash or pruritus. No unusual bruising. No change in hair or nails. Neurologic: No aphasia. No facial droop. No change in mentation. No head injury. No headache. No paralysis. No paresthesia. Psychiatric: No depression. No anxiety. No mood swings. Endocrine: No abnormal blood sugars. No weight change. PHYSICAL EXAMINATION: General: 72-year-old male lying down in bed in no distress HEENT: Head is atraumatic, normocephalic, pupils were equal round reactive to li ght and recommendation, extraocular muscle movement were intact, sclera nonicteric, conjunctivae were pale, mucous membranes of the mouth are somewhat dry. Neck: Supple, no JVP, normal carotid upstroke bilaterally, no lymphadenopathy. Chest: Decreased breath sounds at the bases, few rhonchi, no expiratory wheezes, no chest wall tenderness, no intercostal retractions. Heart: First heart sound is normal, second heart sounds normal, there is systolic ejection murmur 2/6 located in the left sternal border. Abdomen: Soft, nontender, nondistended, positive bowel sounds. Extremities: There is +1 edema no calf tenderness DP +2 bilaterally. Neurologic examination: Patient is awake alert and oriented X 3, cranial nerves II-12 appear grossly intact, muscle power were 5 out of 5 in upper extremities a nd 3 out of 5 in bilateral lower extremities, deep tendon reflexes normal bilaterally. ASSESSMENT AND PLAN: 1. Acute hypoxemic respiratory failure due to acute on chronic diastolic heart failur. patient is on Lasix 40 mg IV push every 24 hours, monitor input and output and daily weight, continue spironolactone 25 mg orally once every day, continue patient on Farxiga 5 mg orally once every day, metoprolol 25 mg orally twice every day, echocardiogram showed ejection fraction 55-60%, normal RV, and aortic sclerosis without stenosis, minimal dilation of the aortic root. 2. Bilateral lower extremity venous stasis with skin tear. Continue local skin care, continue diuretics, keep leg elevated and apply Vaseline gauze and wrap with Toribio wrap. 3. COPD/moderate persistent asthma and not in exacerbation with chronic hypoxemic respiratory failure continue oxygen support continue DuoNeb 3 mg nebulization 4 times every day, continue prednisone 40 mg orally once every day. 4. Paroxysmal atrial for ablation. Continue patient on metoprolol 25 mg orally twice every day, continue warfarin 4 mg once every day, monitor PT and INR. 5. Hypertension and hypertensive cardiovascular disease. Continue patient on metoprolol 25 mg orally twice every day, monitor the patient blood pressure very closely. 6. Hyperlipidemia. Continue patient on atorvastatin 20 mg orally once every day, monitor lipid panel, keep LDL 55-70. 7. Enlarged prostate. Continue patient on tamsulosin 0.4 mg orally once every day. 8. Anxiety disorder. Continue patient on sertraline 100 mg orally once every day. 9. Neuropathy. Continue patient on gabapentin 300 mg at bedtime. 10. DVT prophylaxis. hold coumadin for tonite and Monitor PT and INR. 11. GI prophylaxis. Continue patient on Protonix 40 mg orally once every day. 12. Constipation start the patient on Senokot 2 tablet at bedtime along with MiraLAX 17 g in 8 ounces of water once every day. 13 Right upper quadrant abdominal pain, likely due to constipation . better 14. Obesity.discussed with patient the use of GLP-1 RA for weight loss and he is in agreement, hopefully it will be covered by his insurance 15. Medical debility. Physical therapy following the patien and recommendation for [facility] 16. gum worker consultation for discharge planning. 17. [place] in AM Objective - Vital Signs Vital signs: Vital Signs Temp 98.2 F 03/29/23 20:00 Pulse 80 03/30/23 08:46 Resp 16 03/30/23 04:00 BP 96/60 03/30/23 04:00 Pulse Ox 96 03/30/23 04:00 FiO2 Intake & Output 03/29/23 03/30/23 03/30/23 18:59 06:59 18:59 Intake Total 298 Output Total 1750 1140 600 Balance -5212 -1140 -600 Weight 130 kg Intake: Oral 298 Output: Urine 1750 1140 600 Other: Voiding Method External Catheter External Catheter - Labs CBC & Chem 7: 03/30/23 06:45 03/30/23 06:45 Labs: Abnormal Lab Results - Last 24 Hours (Table) 03/30/23 03/30/23 Range/Units 06:45 06:45 PT 28.9 H (9.0-12.0) sec INR 3.0 H (<1.2) Carbon Dioxide 33 H (22-30) mmol/L BUN 53 H (9-20) mg/dL Creatinine 1.46 H (0.66-1.25) mg/dL Microbiology - Last 24 Hours (Table) 03/26/23 12:30 Blood Culture - Preliminary Blood 03/26/23 12:43 Blood Culture - Preliminary Blood
[2023-03-30] MEDS: ACETAMINOPHEN TAB 500 MG TAB PO PRN (17:19)
[2023-03-30] MEDS: GABAPENTIN 300 MG CAP PO SCH (20:22)
[2023-03-30] MEDS: MONTELUKAST 10 MG TAB PO SCH (20:23)
[2023-03-30] MEDS: BACLOFEN 10 MG TAB PO PRN (20:25)
[2023-03-31 08:31] VITALS: RESP 18; TEMP 98
[2023-03-31] MEDS: ATORVASTATIN 20 MG TAB PO SCH (08:32)
[2023-03-31] MEDS: polyethylene glycoL 3350 17 GM POWD.PACK PO SCH (08:32)
[2023-03-31] MEDS: METOPROLOL TARTRATE 25 MG TAB PO SCH (08:32)
[2023-03-31] MEDS: PANTOPRAZOLE 40 MG TABLET PO SCH (08:32)
[2023-03-31] MEDS: TAMSULOSIN 0.4 MG CAP.ER.24H PO SCH (08:32)
[2023-03-31] MEDS: allopurinoL 100 MG TAB PO SCH (08:32)
[2023-03-31] MEDS: CHOLECALCIFEROL 25 MCG (1000 IU) TABLET PO SCH (08:32)
[2023-03-31] MEDS: SENNOSIDES-DOCUSATE SODIUM 1 EACH TAB PO SCH (08:32)
--- NOTE | 2023-03-31 08:44 | P.DS ---
Providers Date of admission: 03/26/23 14:51 Expected date of discharge: 03/31/23 Attending physician: Alison Leon Consults: 03/26/23 14:51 Consult Physician Routine Consulting Provider: [facility] Consult Reason/Comments: chf Do you want consulting provider notified?: Yes Primary care physician: Alison Leon Hospital Course: HISTORY OF PRESENT ILLNESS: This is a 72-year-old male with a previous medical history significant for hypertension and hypertensive cardio vascular disease, hyperlipidemia, obesity with obstructive sleep apnea and obesity hypoventilation syndrome, chronic diastolic heart failure, asthma, hypothyroidism, anxiety and depressive disorder, peripheral neuropathy, patient was recently discharged from [facility] after he was admitted for 2 week for acute hypoxemic respiratory failure due to acute diastolic heart failure as well as bilateral lower extremity cellulitis he was given 2 week course of Levaquin and vancomycin along with IV diuretics in the form of Lasix 80 mg IV push every 12 hours as well as Zaroxolyn, patient was just left the hospital 2 days ago on 03/24/2023, and I received a call yesterday from his caregiver stating that the patient is not able to care for himself at this time, he would've the patient never voiced that he wants to go to [facility], patient apparently had stopped his Lasix at home, he did not have his medications sorted, so he ended up coming to the emergency department at [facility] this time and he was seen in the emergency department with Dr. Noe who stated that the patient was hypoxemic at 88% patient was supposed to be on oxygen 2-1/2 L nasal cannula, which she was not on and the patient was admitted to the hospital for acute diastolic heart failure his laboratory evaluation were slightly elevated leukocyte count. Otherwise patient was doing okay he does not appear to be in acute distress at this time, because of the presentation was started on Lasix 80 mg IV push every 12 hours, echocardiogram and cardiology consultation, patient was kept on Jardiance or its substitute Farxiga 5 mg orally once every day, fluid restriction to 1250 mL orally once every day, input and output and daily weight, physical therapy evaluation neonatal social worker consultation for discharge planning and possible subacute rehab physician. 03/27: Patient sitting up in a chair eating his right breast, he denies any chest pain, shortness breath, he is coughing less, he has no abdominal pain, he has not had a bowel movement, he denies any nausea or vomiting, he seems to be tolerating her treatment very well, we will consult physical therapy and neonatal social worker for possible discharge planning to [facility]. 03/28: Patient sitting up in a recliner chair he is complaining of increased itching all over his body, he denies any chest pain, he denies any coughing, he continues to be some shortness of breath, he continues to have swelling in both lower extremity's, it does appear to have a skin tear on the right lower extremity present on admission after risk ended on the bathtub, patient did have a bowel movement, continue with physical therapy evaluation, patient will likely need to go to subacute rehab the patient hopefully tomorrow morning or early next week. 03/29: Patient sitting up in chair in no apparent distress, he did receive baclofen 10 mg orally twice every day yesterday because of the pain in the lower back, that radiated to the left lower extremity, he denies any chest pain, his less short of breath, he continues to be on oxygen, he continues to be on IV diuretics, he has been followed by cardiology, echocardiogram was reviewed and did show evidence of normal ejection fraction and mild aortic sclerosis. fellmongery worker for discharge planning. 03/30: Patient is sitting up in chair in no distress,we will continue with current treatment paln and diuretics and we will plan on him going to [facility] in [place], patient denies any chest pain, some cough no phlegm production, discharge diagnoses: 1. Acute hypoxemic respiratory failure due to acute on chronic diastolic heart failur. 2. Bilateral lower extremity venous stasis with skin tear. 3. COPD/moderate persistent asthma and not in exacerbation with chronic hypoxemic respiratory failure 4. Paroxysmal atrial fibrillation 5. Hypertension and hypertensive cardiovascular disease. 6. Hyperlipidemia. 7. Enlarged prostate. 8. Anxiety disorder. 9. Neuropathy. 10. Constipation 11. Right upper quadrant abdominal pain, likely due to constipation . better 12. Obesity.discussed with patient the use of GLP-1 RA for weight loss and he is in agreement, hopefully it will be covered by his insurance 13. Medical debility Patient Condition at Discharge: Stable Plan - Discharge Summary Discharge Rx Participant: No New Discharge Prescriptions: No Action Metoprolol Tartrate 25 mg PO BID allopurinoL [Zyloprim] 200 mg PO DAILY Montelukast [Singulair] 10 mg PO HS #30 tab Sertraline [Zoloft] 100 mg PO DAILY Spironolactone [Aldactone] 25 mg PO DAILY Atorvastatin [Lipitor] 20 mg PO DAILY Tamsulosin [Flomax] 0.4 mg PO DAILY Ipratropium-Albuterol Nebulize [Duoneb 0.5 mg-3 mg/3 ml Soln] 3 ml INHALATION RT-Q6H Gabapentin [Neurontin] 300 mg PO HS Empagliflozin [Jardiance] 10 mg PO DAILY predniSONE [Deltasone] See Taper PO DIRECTED tadalafiL 5 mg PO DAILY PRN PRN Reason: E.D. Warfarin Sodium 4 mg PO DAILY Acetaminophen Tab [Tylenol Tab] 500 mg PO Q6H PRN PRN Reason: Pain Benzonatate [Tessalon Perles] 100 mg PO TID PRN PRN Reason: Cough Cholecalciferol [Vitamin D3 (25 Mcg = 1000 Iu)] 50 mcg PO DAILY Pantoprazole [Protonix] 40 mg PO DAILY Potassium Chloride ER [K-Dur 20] 20 meq PO BID Simethicone Chew [Mylicon Chew] 80 mg PO TID PRN PRN Reason: Gi Upset Discharge Medication List Metoprolol Tartrate 25 mg PO BID 11/02/14 [History] allopurinoL [Zyloprim] 200 mg PO DAILY 11/02/14 [History] Montelukast [Singulair] 10 mg PO HS #30 tab 11/07/14 [Rx] Sertraline [Zoloft] 100 mg PO DAILY 04/04/17 [History] Atorvastatin [Lipitor] 20 mg PO DAILY 07/14/19 [History] Spironolactone [Aldactone] 25 mg PO DAILY 07/14/19 [History] Tamsulosin [Flomax] 0.4 mg PO DAILY 07/14/19 [History] Ipratropium-Albuterol Nebulize [Duoneb 0.5 mg-3 mg/3 ml Soln] 3 ml INHALATION RT-Q6H 08/19/19 [History] Gabapentin [Neurontin] 300 mg PO HS 11/30/19 [History] Acetaminophen Tab [Tylenol Tab] 500 mg PO Q6H PRN 03/26/23 [History] Benzonatate [Tessalon Perles] 100 mg PO TID PRN 03/26/23 [History] Cholecalciferol [Vitamin D3 (25 Mcg = 1000 Iu)] 50 mcg PO DAILY 03/26/23 [His tory] Empagliflozin [Jardiance] 10 mg PO DAILY 03/26/23 [History] Pantoprazole [Protonix] 40 mg PO DAILY 03/26/23 [History] Potassium Chloride ER [K-Dur 20] 20 meq PO BID 03/26/23 [History] Simethicone Chew [Mylicon Chew] 80 mg PO TID PRN 03/26/23 [History] Warfarin Sodium 4 mg PO DAILY 03/26/23 [History] predniSONE [Deltasone] See Taper PO DIRECTED 03/26/23 [History] tadalafiL 5 mg PO DAILY PRN 03/26/23 [History] Follow up Appointment(s)/Referral(s): Alison Leon MD [Primary Care Provider] - 1-2 days
[2023-03-31] MEDS ORDERED: SILVER sulfADIAZINE Cream 400 GM 1 APPLIC APPLIC TOPICAL SCH (09:00)
[2023-03-31] MEDS ORDERED: FUROSEMIDE 10 MG/ML 4 ML VIAL IV SCH (09:00)
[2023-03-31] MEDS ORDERED: predniSONE 20 MG TAB PO SCH (09:00)
[2023-03-31] MEDS: IPRATROPIUM-ALBUTEROL 3 ML NEB INHALATION SCH ×2 (09:04→12:36)
[2023-03-31 11:26] LABS: Anisocytosis Slight; Basophils % (A) 0 %; Eosinophils # (A) 0.1 k/uL (0-0.7); Eosinophils % (A) 1 %; HCT 34.4 % (39.0-53.0); HGB 10.7 gm/dL (13.0-17.5); Hypochromasia Moderate; Lymphocytes % (A) 8 %; MCH 27.4 pg (25.0-35.0); MCV 88.4 fL (80.0-100.0); Mean Platelet Volume 7.1; Monocytes # (A) 0.9 k/uL (0-1.0); Monocytes % (A) 7 %; Neutrophils # (A) 10.2 k/uL (1.3-7.7); Neutrophils % (A) 82 %; Platelet Count 137 k/uL (150-450); WBC 12.4 k/uL (3.8-10.6)
[2023-03-31 11:44] LABS: Albumin 3.6 g/dL (3.5-5.0); Calcium 8.6 mg/dL (8.4-10.2); Potassium 3.9 mmol/L (3.5-5.1); Total Bilirubin 1.1 mg/dL (0.2-1.3); Total Protein 6.5 g/dL (6.3-8.2)
[2023-03-31 11:54] LABS: INR 2.5 (<1.2); Prothrombin Time 24.8 sec (9.0-12.0)
[2023-03-31] MEDS: DAPAGLIFLOZIN PROPANEDIOL 5 MG TABLET PO SCH (12:17)
[2023-03-31] MEDS: SERTRALINE 100 MG TAB PO SCH (12:17)
[2023-03-31 12:18] VITALS: BP 112/60
[2023-03-31 12:46] VITALS: PULSE 72
--- NOTE | 2023-03-31 13:06 | P.PN ---
Subjective Progress Note Date: 03/31/23 HISTORY OF PRESENT ILLNESS: Patient is a pleasant 72-year-old male with significant past medical history of congestive heart failure, asthma, hypertension who presented to the emergency department with complaints of worsening shortness of breath and bilateral lower extremity edema. He does not believe he follows with a [facility]. He was recently at [facility] for 11 days for similar symptoms. He reports that he was discharged approximately 2 days ago and was at home, initially had felt better, however, his shortness of breath got worse and he presented to the emergency department here. He believes that his lower extremity edema is about the same as it has been, however, right lower extremity was noted to be infected and he was started on IV vancomycin. He does appear short of breath with talking sitting up right in the chair, he is on 5 L nasal cannula O2. He is on Coumadin however he does not know exactly what this is for, there is mention of paroxysmal a-fib in records from [facility]. Labs reviewed: INR 2.0, troponin negative 1, BNP 2310, WBC 11.5, hemoglobin 10.4, platelet 36, creatinine 1.27. EKG shows sinus rhythm with sinus arrhythmia 61 bpm. Chest x-ray shows CHF exacerbation, cardiomegaly with mildmoderate interstitial edema and central alveolar edema suspected and tiny bilateral pleural effusions. 03/28 Patient seen and examined. Patient has been diuresing well with creatinine mildly increased to 1.5. He admits to shortness of breath as well as a lower extremity is slowly improving. Echocardiogram was repeated with left ventricular ejection fraction 50-55%, mild right ventricular dilation, somewhat technically difficult with moderate aortic root dilation 4.3 cm. 03/29 Sitting up in chair, NC 4L O2. He is feeling better. BLE edema continues to improve. Creat pending. 03/30 He continues to feel better. Swelling is improving. Creat 1.46. 03/31/2023 Patient examined this morning at the bedside. Patient denies chest pain or pressure. Denies SOB. He was transitioned to oral lasix. Vital signs stable. PHYSICAL EXAM: VITAL SIGNS: Reviewed. GENERAL: Well-developed in no acute distress. NECK: Supple. No JVD or thyromegaly LUNGS: Respirations even and unlabored. Lungs essentially clear to auscultation bilaterally. HEART: Regular rate and rhythm. S1 and S2 heard. EXTREMITIES: Normal range of motion. No clubbing or cyanosis. Peripheral pulses intact. No lower extremity edema ASSESSMENT: Acute on chronic diastolic heart failure Acute on chronic respiratory failure likely multifactorial related to heart failure as well as COPD Hypertension Shortness of breath Asthma Lower extremity edema, likely component of venous insufficiency as well Right lower extremity cellulitis Mild aortic root dilation Acute kidney injury PLAN: Continue current cardiac medications Patient is stable for discharge from a cardiac standpoint Patient to follow up post discharge Nurse practitioner note has been reviewed by physician. Signing provider agrees with the documented findings, assessment, and plan of care. Objective - Vital Signs Vital signs: Vital Signs Temp 98.0 F 03/31/23 08:31 Pulse 72 03/31/23 12:45 Resp 18 03/31/23 12:17 BP 112/60 03/31/23 12:17 Pulse Ox 93 L 03/31/23 12:17 FiO2 Intake & Output 03/30/23 03/31/23 03/31/23 18:59 06:59 18:59 Intake Total 0 2040 550 Output Total 2100 1100 1450 Balance -2100 940 -900 Weight 128 kg 135.5 kg Intake: IV 10 Invasive Line 2 10 Oral 0 2040 540 Output: Urine 2100 1100 1450 Other: Voiding Method External Catheter External Catheter External Catheter # Bowel Movements 1 1 - Labs CBC & Chem 7: 03/31/23 11:09 03/31/23 11:09 Labs: Abnormal Lab Results - Last 24 Hours (Table) 03/31/23 03/31/23 03/31/23 Range/Units 11:09 11:09 11:09 WBC 12.4 H (3.8-10.6) k/uL RBC 3.90 L (4.30-5.90) m/uL Hgb 10.7 L (13.0-17.5) gm/dL Hct 34.4 L (39.0-53.0) % RDW 17.0 H (11.5-15.5) % Plt Count 137 L (150-450) k/uL Neutrophils # 10.2 H (1.3-7.7) k/uL PT 24.8 H (9.0-12.0) sec INR 2.5 H (<1.2) BUN 52 H (9-20) mg/dL Creatinine 1.36 H (0.66-1.25) mg/dL ALT 50 H (4-49) U/L Microbiology - Last 24 Hours (Table) 03/26/23 12:30 Blood Culture - Preliminary Blood 03/26/23 12:43 Blood Culture - Preliminary Blood 03/26/23 12:42 Anaerobic Culture - Final Leg - Right
[2023-03-31] MEDS: ACETAMINOPHEN TAB 500 MG TAB PO PRN (13:49)
[2023-03-31] MEDS: BACLOFEN 10 MG TAB PO PRN (13:49)
[2023-04-01] MEDS ORDERED: FUROSEMIDE 80 MG TAB PO SCH (09:00)
== END 2023-03-31 14:52 | DRG 291 ==
LOC: EC 11:37 → 3SCARD 14:51
PROVIDERS: ADMIT Internal Medicine; ATTEND Internal Medicine
DX: I11.0 Hypertensive heart disease with heart failure (principal); I50.33 Acute on chronic diastolic (congestive) heart failure; J96.20 Acute and chronic respiratory failure, unspecified whether with hypoxia or hypercapnia; Z68.42 Body mass index [BMI] 45.0-49.9, adult; L03.115 Cellulitis of right lower limb; E66.9 Obesity, unspecified; I87.2 Venous insufficiency (chronic) (peripheral); I77.819 Aortic ectasia, unspecified site; I48.0 Paroxysmal atrial fibrillation; N40.0 Benign prostatic hyperplasia without lower urinary tract symptoms; J44.9 Chronic obstructive pulmonary disease, unspecified; J45.40 Moderate persistent asthma, uncomplicated; N19 Unspecified kidney failure; F41.9 Anxiety disorder, unspecified; E78.5 Hyperlipidemia, unspecified; K59.00 Constipation, unspecified; E03.9 Hypothyroidism, unspecified; G47.33 Obstructive sleep apnea (adult) (pediatric); M10.9 Gout, unspecified; Z87.01 Personal history of pneumonia (recurrent); Z79.84 Long term (current) use of oral hypoglycemic drugs; Z79.01 Long term (current) use of anticoagulants; Z79.899 Other long term (current) drug therapy; Z82.49 Family history of ischemic heart disease and other diseases of the circulatory system
CPT/HCPCS: 36415; 71046; 80048; 80053; 81003; 83605; 83735; 83880; 84484; 85025; 85610; 85730; 87070; 87075; 87205; 87635; 93005; 93306; 94640; 94660; 94760; 96365; 96375; 99285

== ENCOUNTER 2023-06-21 22:14 | Inpatient (IN) | payer MEDICARE, BC ==
[2023-06-21 23:29] LABS: ALT 17 U/L (4-49); AST 60 U/L (17-59); African American GFR (CKD) 41 (>60 ml/min/1.73 sqM); Albumin 3.4 g/dL (3.5-5.0); Alkaline Phosphatase 92 U/L (38-126); Anion Gap 12 mmol/L; Blood Urea Nitrogen 23 mg/dL (9-20); Calcium 9.1 mg/dL (8.4-10.2); Carbon Dioxide 24 mmol/L (22-30); Chloride 99 mmol/L (98-107); Glucose 97 mg/dL (74-99); Magnesium 1.2 mg/dL (1.6-2.3); Non-African American GFR(CKD) 36 (>60 ml/min/1.73 sqM); Sodium 135 mmol/L (137-145); Total Bilirubin 1.3 mg/dL (0.2-1.3); Total Protein 7.1 g/dL (6.3-8.2)
[2023-06-21 23:33] LABS: Anisocytosis Slight; Basophils % (A) 0 %; Eosinophils # (A) 0.3 k/uL (0-0.7); Eosinophils % (A) 3 %; HCT 35.4 % (39.0-53.0); Hypochromasia Slight; Lymphocytes # (A) 1.8 k/uL (1.0-4.8); Lymphocytes % (A) 18 %; MCH 24.8 pg (25.0-35.0); MCHC 30.9 g/dL (31.0-37.0); MCV 80.3 fL (80.0-100.0); Mean Platelet Volume 7.5; Microcytosis Slight; Monocytes # (A) 0.9 k/uL (0-1.0); Monocytes % (A) 9 %; Neutrophils # (A) 7.1 k/uL (1.3-7.7); Neutrophils % (A) 69 %; Platelet Count 194 k/uL (150-450); RBC 4.41 m/uL (4.30-5.90); RDW 19.3 % (11.5-15.5); WBC 10.3 k/uL (3.8-10.6)
[2023-06-21 23:36] LABS: Potassium 3.6 mmol/L (3.5-5.1)
[2023-06-21 23:37] LABS: NT-Pro-B-Type Natriuretic Pept 882 pg/mL
[2023-06-21] MEDS ORDERED: SODIUM CHLORIDE 0.9% 500 ML 500 ML IV ONE (23:48)
[2023-06-21] MEDS ORDERED: IPRATROPIUM-ALBUTEROL 3 ML NEB INHALATION STA (23:49)
[2023-06-21] MEDS ORDERED: FUROSEMIDE 10 MG/ML 4 ML VIAL IV STA (23:56)
--- NOTE | 2023-06-21 23:56 | ED ---
General Adult HPI - General Chief complaint: Nausea/Vomiting/Diarrhea Stated complaint: SOB Time Seen by Provider: 06/21/23 22:51 Source: patient, EMS, RN notes reviewed, old records reviewed Mode of arrival: EMS Limitations: no limitations - History of Present Illness Initial comments: 72-year-old male presents from home with multiple complaints. Patient presents for evaluation of dyspnea, lower extremity edema, diarrhea. History of oxygen dependent CHF and COPD. Denies fever. Denies central chest pain. Denies abdominal pain. States the diarrhea has been present for the past several months. He does report bilateral lower extremity edema. - Related Data Home Medications Medication Instructions Recorded Confirmed Metoprolol Tartrate 25 mg PO BID 11/02/14 03/26/23 allopurinoL [Zyloprim] 200 mg PO DAILY 11/02/14 03/26/23 Sertraline [Zoloft] 100 mg PO DAILY 04/04/17 03/26/23 Atorvastatin [Lipitor] 20 mg PO DAILY 07/14/19 03/26/23 Spironolactone [Aldactone] 25 mg PO DAILY 07/14/19 03/26/23 Tamsulosin [Flomax] 0.4 mg PO DAILY 07/14/19 03/26/23 Ipratropium-Albuterol Nebulize 3 ml INHALATION RT-Q6H 08/19/19 03/26/23 [Duoneb 0.5 mg-3 mg/3 ml Soln] Acetaminophen Tab [Tylenol] 500 mg PO Q6H PRN 03/26/23 03/26/23 Benzonatate [Tessalon Perles] 100 mg PO TID PRN 03/26/23 03/26/23 Cholecalciferol [Vitamin D3 (25 50 mcg PO DAILY 03/26/23 03/26/23 Mcg = 1000 Iu)] Empagliflozin [Jardiance] 10 mg PO DAILY 03/26/23 03/26/23 Pantoprazole [Protonix] 40 mg PO DAILY 03/26/23 03/26/23 Potassium Chloride ER [K-Dur 20] 20 meq PO BID 03/26/23 03/26/23 Warfarin Sodium 4 mg PO DAILY 03/26/23 03/26/23 tadalafiL 5 mg PO DAILY PRN 03/26/23 03/26/23 Previous Rx's Medication Instructions Recorded Montelukast [Singulair] 10 mg PO HS #30 tab 11/07/14 Baclofen [Lioresal] 10 mg PO BID PRN tab 03/31/23 Furosemide [Lasix] 80 mg PO DAILY #30 tablet 03/31/23 Gabapentin [Neurontin] 300 mg PO HS #30 cap 03/31/23 SILVER sulfADIAZINE Cream 1 applic TOPICAL DAILY each 03/31/23 [Silvadene 1% Cream] Sennosides-Docusate Sodium 1 each PO BID tab 03/31/23 [Senokot-S] predniSONE [Deltasone] 40 mg PO DAILY tab 03/31/23 Allergies Allergy/AdvReac Type Severity Reaction Status Date / Time No Known Allergies Allergy Verified 03/26/23 13:12 Review of Systems ROS Statement: Those systems with pertinent positive or pertinent negative responses have been documented in the HPI. ROS Other: All systems not noted in ROS Statement are negative. Past Medical History Past Medical History: Asthma, Chest Pain / Angina, GERD/Reflux, Hyperlipidemia, Hypertension, Osteoarthritis (OA), Pneumonia, Sleep Apnea/CPAP/BIPAP Additional Past Medical History / Comment(s): uses oxygen at night 2L, gout, in wheelchair or walker due to pain in left leg, poor circulation in legs(takes coumadin for) History of Any Multi-Drug Resistant Organisms: None Reported Past Surgical History: Orthopedic Surgery, Tonsillectomy Additional Past Surgical History / Comment(s): LEFT WRIST ORIF, LEFT KNEE REPLACEMENT, bilateral cataract surgery Past Anesthesia/Blood Transfusion Reactions: No Reported Reaction Additional Past Anesthesia/Blood Transfusion Reaction / Comment(s): . Past Psychological History: No Psychological Hx Reported, Depression Smoking Status: Former smoker Past Alcohol Use History: None Reported Past Drug Use History: None Reported - Past Family History Mother Family Medical History: Congestive Heart Failure (CHF), Osteoarthritis (OA) Father Additional Family Medical History / Comment(s): FROM [place] Brother(s) Family Medical History: Cancer Additional Family Medical History / Comment(s): . Sister(s) Family Medical History: Deep Vein Thrombosis (DVT) General Exam Limitations: no limitations General appearance: alert, in no apparent distress Head exam: Present: atraumatic, normocephalic Eye exam: Present: normal appearance, PERRL ENT exam: Present: normal exam Neck exam: Present: normal inspection. Absent: tenderness Respiratory exam: Present: rales, decreased breath sounds. Absent: respiratory distress Cardiovascular Exam: Present: regular rate, normal rhythm GI/Abdominal exam: Present: soft. Absent: distended, tenderness, guarding Extremities exam: Present: pedal edema Neurological exam: Present: alert, oriented X3 Psychiatric exam: Present: normal affect, normal mood Skin exam: Present: warm, dry, intact. Absent: cyanosis, diaphoretic Course Vital Signs 06/21/23 06/21/23 06/21/23 22:18 22:50 23:48 Temperature 97.6 F Pulse Rate 65 73 Respiratory 18 11 L 11 L Rate Blood Pressure 102/79 97/64 104/58 O2 Sat by Pulse 95 84 L 92 L Oximetry 06/22/23 06/22/23 06/22/23 00:12 00:35 00:42 Temperature Pulse Rate 67 71 64 Respiratory 12 10 L Rate Blood Pressure 79/48 101/57 O2 Sat by Pulse 94 L 98 Oximetry Medical Decision Making - Medical Decision Making Was pt. sent in by a medical professional or institution (Dr. PA, RETAIL LOSS PREVENTION INVESTIGATOR, urgent care, hospital, or prison...) When possible be specific @ -No Did you speak to anyone other than the patient for history (EMS, parent, family, police, friend...)? What history was obtained from this source @ -No Did you review nursing and triage notes (agree or disagree)? Why? @ -I reviewed and agree with nursing and triage notes Were old charts reviewed (outside hosp., previous admission, EMS record, old EKG, old radiological studies, urgent care reports/EKG's, prison records)? Report findings @ -No old charts were reviewed Differential Diagnosis (chest pain, altered mental status, abdominal pain women, abdominal pain men, vaginal bleeding, weakness, fever, dyspnea, syncope, headache, dizziness, GI bleed, back pain, seizure, CVA, palpatations, mental health, musculoskeletal)? @ -not applicable EKG interpreted by me (3pts min.). @Sinus rhythm rate of 70 MD interval 174, QRS duration 113, QTC 455 there is sinus arrhythmia no ST segment elevation. X-rays interpreted by me (1pt min.). @ -Chest x-ray showing pulmonary edema consistent with CHF CT interpreted by me (1pt min.). @ none done U/S interpreted by me (1pt. min.). @ -None done What testing was considered but not performed or refused? (CT, X-rays, U/S, labs)? Why? @ -None What meds were considered but not given or refused? Why? @ -None Did you discuss the management of the patient with other professionals (professionals i.e. , PA, RETAIL LOSS PREVENTION INVESTIGATOR, lab, RT, psych nurse, social work assistant, switchboard operator helper, teacher, business enterprise officer, social work case manager)? Give summary @ -[Dr. Leon Was smoking cessation discussed for >3mins.? @ -No Was critical care preformed (if so, how long)? @ -No Were there social determinants of health that impacted care today? How? (Homelessness, low income, unemployed, alcoholism, drug addiction, transportation, low edu. Level, literacy, decrease access to med. care, [facility], rehab)? @ -No Was there de-escalation of care discussed even if they declined (Discuss DNR or withdrawal of care, Hospice)? DNR status @ -No What co-morbidities impacted this encounter? (DM, HTN, Smoking, COPD, CAD, Cancer, CVA, ARF, Chemo, Hep., AIDS, mental health diagnosis, sleep apnea, morbid obesity)? @ -Asthma, CHF Was patient admitted / discharged? Hospital course, mention meds given and route, prescriptions, significant lab abnormalities, going to OR and other pertinent info. @ -72-year-old male presenting with complaints of dyspnea, bilateral leg sw elling, and chronic diarrhea. Patient does have history of oxygen dependent asthma CHF. However he is hypoxic upon arrival requiring increased oxygenation. Patient has chronic stable anemia, normal white blood cell count, patient has mild elevation in creatinine. His BNP is normal. Patient will benefit from treatment both of asthma and CHF. He is able to give a stool sample I have ordered Clostridium difficile toxin, given the chronic diarrhea. Patient will be admitted to internal medicine with cardiology on consult for CHF Undiagnosed new problem with uncertain prognosis? @ -No Drug Therapy requiring intensive monitoring for toxicity (Heparin, Nitro, Insulin, Cardizem)? @ -No Were any procedures done? @ -No Diagnosis/symptom? @ -CHF exacerbation Acute, or Chronic, or Acute on Chronic? @ -Acute on chronic Uncomplicated (without systemic symptoms) or Complicated (systemic symptoms)? @ -default Side effects of treatment? @ -No Exacerbation, Progression, or Severe Exacerbation? @ -No Poses a threat to life or bodily function? How? (Chest pain, USA, SD, pneumonia, PE, COPD, DKA, ARF, appy, cholecystitis, CVA, Diverticulitis, Homicidal, Suicidal, threat to staff... and all critical care pts) @ -[Yes, hypoxia, respiratory failure - Lab Data Result diagrams: 06/21/23 22:57 06/21/23 22:57 Lab Results 06/21/23 06/21/23 Range/Units 22:57 22:57 WBC 10.3 (3.8-10.6) k/uL RBC 4.41 (4.30-5.90) m/uL Hgb 11.0 L (13.0-17.5) gm/dL Hct 35.4 L (39.0-53.0) % MCV 80.3 (80.0-100.0) fL MCH 24.8 L (25.0-35.0) pg MCHC 30.9 L (31.0-37.0) g/dL RDW 19.3 H (11.5-15.5) % Plt Count 194 (150-450) k/uL MPV 7.5 Neutrophils % 69 % Lymphocytes % 18 % Monocytes % 9 % Eosinophils % 3 % Basophils % 0 % Neutrophils # 7.1 (1.3-7.7) k/uL Lymphocytes # 1.8 (1.0-4.8) k/uL Monocytes # 0.9 (0-1.0) k/uL Eosinophils # 0.3 (0-0.7) k/uL Basophils # 0.0 (0-0.2) k/uL Hypochromasia Slight Anisocytosis Slight Microcytosis Slight Sodium 135 L (137-145) mmol/L Potassium 3.6 (3.5-5.1) mmol/L Chloride 99 (98-107) mmol/L Carbon Dioxide 24 (22-30) mmol/L Anion Gap 12 mmol/L BUN 23 H (9-20) mg/dL Creatinine 1.85 H (0.66-1.25) mg/dL Est GFR (CKD-EPI)AfAm 41 (>60 ml/min/1.73 sqM) Est GFR (CKD-EPI)NonAf 36 (>60 ml/min/1.73 sqM) Glucose 97 (74-99) mg/dL Calcium 9.1 (8.4-10.2) mg/dL Magnesium 1.2 L (1.6-2.3) mg/dL Total Bilirubin 1.3 (0.2-1.3) mg/dL AST 60 H (17-59) U/L ALT 17 (4-49) U/L Alkaline Phosphatase 92 (38-126) U/L NT-Pro-B Natriuret Pep 882 pg/mL Total Protein 7.1 (6.3-8.2) g/dL Albumin 3.4 L (3.5-5.0) g/dL Disposition Clinical Impression: CHF (congestive heart failure), Acute exacerbation of chronic obstructive airways disease Disposition: ADMITTED IP TO THIS HOSP Condition: Stable Is patient prescribed a controlled substance at d/c from ED?: No Referrals: Alison Leon MD [Primary Care Provider] - 1-2 days Time of Disposition: 00:49
--- NOTE | 2023-06-21 23:56 | XR ---
EXAM: XR Chest, 2 Views CLINICAL HISTORY: ITS.REASON XR Reason: sob TECHNIQUE: Frontal and lateral views of the chest. COMPARISON: 03/26/2023 FINDINGS: Lungs: Diffuse interstitial infiltrates. Central pulmonary vascular congestion. Pleural space: Unremarkable. No pneumothorax. Heart: Cardiomegaly. Mediastinum: Unremarkable. Bones/joints: Unremarkable. No effusions. IMPRESSION: CHF
[2023-06-22] MEDS: MAGNESIUM SULFATE-D5W PMX 1 GM in DEXTROSE/WATER 1 100ML.BAG IVPB SCH ×2 (00:13→02:10)
[2023-06-22] MEDS: ALBUTEROL NEBULIZED 2.5 MG/3 ML INHALATION STA ×2 (00:33→00:44)
[2023-06-22] MEDS ORDERED: ACETAMINOPHEN TAB 325 MG TAB PO PRN (00:44)
[2023-06-22] MEDS ORDERED: NALOXONE 0.4 MG/ML 1 ML VIAL IV PRN (00:44)
[2023-06-22 04:26] LABS: INR 1.1 (<1.2); Partial Thromboplastin Time 27.3 sec (22.0-30.0); Prothrombin Time 11.3 sec (9.0-12.0)
[2023-06-22] MEDS: FUROSEMIDE 10 MG/ML 10 ML VIAL IV SCH ×2 (08:42→20:28)
[2023-06-22] MEDS: methylPREDNISolone SOD SUCCI 125 MG/2 ML VIAL IV SCH ×3 (08:43→22:57)
[2023-06-22] MEDS: IPRATROPIUM-ALBUTEROL 3 ML NEB INHALATION SCH ×4 (08:52→21:06)
--- NOTE | 2023-06-22 09:54 | P.CRDCN ---
History of Present Illness Consult date: 06/22/23 Consult reason: congestive heart failure History of present illness: History of present illness: This is a 72 year old male with past medical history of hypertension with hypertensive cardio vascular disease, hyperlipidemia, paroxymal a fib, obesity with obstructive sleep apnea and obesity hypoventilation syndrome, chronic diastolic heart failure, asthma, chronic hypoxic respiratory failure on home O2, hypothyroidism, peripheral neuropathy, remote history of tobacco use and dependence. Patient has had previous admissions for acute diastolic heart failure both at [facility] and at [facility]. He has been seen in the past by Dr. Lamb in the office in 2018. He is unable to give me a name of a inserter operator he follows with now. Patient states he came into the hospital due to diarrhea that has been going on for the past 2 weeks. He states he was to have an appointment with his PCP but the power went out the day of his appointment and he was unable to see him at that time. Denies having any chest pain he denies any shortness of breath. He does have chronic dyspnea on exertion which he states is unchanged. Patient was treated in the emergency center and started on IV Lasix 40 mg 1 followed by 60 mg every 12 hours. We have been asked to evaluate the patient for heart failure. Regarding Coumadin, patient is unable to state why he is on Coumadin and who manages his Coumadin level. Patient is a poor historian. EKG sinus rhythm with sinus arrhythmia, no acute ST changes Chest x-ray: CHF WBC 10.3, hemoglobin 11, platelet count 194. Sodium 135, potassium 3.6, BUN 23 creatinine 1.85. Magnesium 1.2. AST 60. ProBNP 882. Home cardiac medications: Have not been confirmed Echocardiogram 03/2023 revealed normal LV systolic function with EF of 50-55%, mitral calcification, aortic sclerosis. Cardiac catheterization [address] De Luna revealed calcified proximal LAD, normal LV size and function. Review Of Systems: At the time of my evaluation: Constitutional: No fever, no chills. No weakness, fatigue or lethargy. EENT: No headache. No dizziness. Lungs: No shortness of breath, cough, no sputum production. No wheezing. Chronic dyspnea on exertion Cardiovascular: No chest pain, + lower extremity edema. No palpitations. No paroxysmal nocturnal dyspnea. + orthopnea. No lightheadedness or dizziness. No syncopal episodes. Abdominal: + abdominal pain. No nausea, vomiting. + diarrhea. No constipation. No bloody or tarry stools. Genitourinary: No dysuria.. No urinary retention. Musculoskeletal: No myalgias. Chronic muscle weakness, no frequent falls. No back pain. No neck pain. Integumentary: No wounds. + Redness to bilat lower legs. Neurologic: No aphasia. No facial droop. No change in mentation. Physical examination: Gen: This is a morbidly obese 72-year-old male. He is resting in a recliner and appears to be comfortable. No acute respiratory distress noted. VS: reviewed HEENT: Head is atraumatic, normocephalic. Pupils equal, round. Sclerae is anicteric. NECK: Supple. No JVD. LUNGS: Diminished bilaterally. No intercostal retractions. HEART: Regular rate and rhythm. No murmur. ABDOMEN: Soft tenderness to the right upper quadrant and left lower quadrant EXTREMITIES: 2+ pedal edema. Erythema and warmth to bilateral lower extremities NEUROLOGICAL: Patient is awake, alert and oriented x3. Assessment: Diarrhea Bilateral lower extremity cellulitis Acute on chronic diastolic heart failure Hypertensive cardiovascular disease Paroxysmal atrial fibrillation Subtherapeutic Coumadin, suspect noncompliance Obstructive sleep apnea Chronic hypoxic respiratory failure on home O2 Morbid obesity Asthma Plan: Continue patient on Lasix 60 mg IV every 12 hours for 1 more day and then transitioned to oral Patient switched to Xarelto, discontinue Coumadin Resume appropriate cardiac medications once these have been confirmed Monitor I&O, daily weights, renal function and electrolytes No need to repeat echocardiogram as one was done in March of this year Further recommendations to follow based upon clinical course Thank you kindly for this consultation. Nurse practitioner note has been reviewed, I agree with documented findings and plan of care. Patient was seen and examined. Past Medical History Past Medical History: Asthma, Chest Pain / Angina, GERD/Reflux, Hyperlipidemia, Hypertension, Osteoarthritis (OA), Pneumonia, Sleep Apnea/CPAP/BIPAP Additional Past Medical History / Comment(s): uses oxygen at night 2L, gout, in wheelchair or walker due to pain in left leg, poor circulation in legs(takes coumadin for) History of Any Multi-Drug Resistant Organisms: None Reported Past Surgical History: Orthopedic Surgery, Tonsillectomy Additional Past Surgical History / Comment(s): LEFT WRIST ORIF, LEFT KNEE REPLACEMENT, bilateral cataract surgery Past Anesthesia/Blood Transfusion Reactions: No Reported Reaction Additional Past Anesthesia/Blood Transfusion Reaction / Comment(s): . Past Psychological History: No Psychological Hx Reported, Depression Additional Psychological History / Comment(s): . Smoking Status: Former smoker Past Alcohol Use History: None Reported Additional Past Alcohol Use History / Comment(s): started smoking at age 21-2ppd then quit 2004, Past Drug Use History: None Reported - Past Family History Mother Family Medical History: Congestive Heart Failure (CHF), Osteoarthritis (OA) Father Additional Family Medical History / Comment(s): FROM [place] Brother(s) Family Medical History: Cancer Additional Family Medical History / Comment(s): . Sister(s) Family Medical History: Deep Vein Thrombosis (DVT) Medications and Allergies Home Medications Medication Instructions Recorded Confirmed Type Metoprolol Tartrate 25 mg PO BID 11/02/14 06/22/23 History allopurinoL [Zyloprim] 200 mg PO DAILY 11/02/14 06/22/23 History Montelukast [Singulair] 10 mg PO HS #30 tab 11/07/14 06/22/23 Rx Sertraline [Zoloft] 100 mg PO DAILY 04/04/17 06/22/23 History Atorvastatin [Lipitor] 20 mg PO HS 07/14/19 06/22/23 History Spironolactone [Aldactone] 25 mg PO DAILY 07/14/19 06/22/23 History Tamsulosin [Flomax] 0.4 mg PO DAILY 07/14/19 06/22/23 History Ipratropium-Albuterol Nebulize 3 ml INHALATION RT-Q6H 08/19/19 06/22/23 History [Duoneb 0.5 mg-3 mg/3 ml Soln] Acetaminophen Tab [Tylenol] 500 mg PO Q6H PRN 03/26/23 06/22/23 History Cholecalciferol [Vitamin D3 (25 50 mcg PO DAILY 03/26/23 06/22/23 History Mcg = 1000 Iu)] Empagliflozin [Jardiance] 10 mg PO DAILY 03/26/23 06/22/23 History Pantoprazole [Protonix] 40 mg PO DAILY 03/26/23 06/22/23 History Potassium Chloride ER [K-Dur 20] 20 meq PO BID 03/26/23 06/22/23 History Warfarin Sodium 4 mg PO [id number]@2100 03/26/23 06/22/23 History tadalafiL 5 mg PO DAILY PRN 03/26/23 06/22/23 History Baclofen [Lioresal] 10 mg PO BID PRN tab 03/31/23 06/22/23 Rx Furosemide [Lasix] 80 mg PO DAILY #30 tablet 03/31/23 06/22/23 Rx SILVER sulfADIAZINE Cream 1 applic TOPICAL DAILY each 03/31/23 06/22/23 Rx [Silvadene 1% Cream] Ammonium Lactate Lotion 1 applic TOPICAL BID 06/22/23 06/22/23 History [Lac-Hydrin 12% Lotion] Dapagliflozin Propanediol [Farxiga] 10 mg PO DAILY 06/22/23 06/22/23 History Semaglutide [Ozempic] 0.5 mg SQ Q7D 06/22/23 06/22/23 History Warfarin Sodium 2 mg PO [id number]@[id number]/22/23 06/22/23 History traZODone HCL 150 mg PO HS PRN 06/22/23 06/22/23 History Allergies Allergy/AdvReac Type Severity Reaction Status Date / Time No Known Allergies Allergy Verified 06/22/23 11:14 Physical Exam Vitals: Vital Signs Temp Pulse Pulse Resp BP BP Pulse Ox 06/22/23 09:04 75 06/22/23 08:53 75 06/22/23 06:05 98 F 69 18 103/63 95 06/22/23 01:50 97.8 F 79 22 104/58 94 L 06/22/23 01:14 75 16 97/74 95 06/22/23 00:52 72 06/22/23 00:42 64 10 L 101/57 98 06/22/23 00:35 71 06/22/23 00:12 67 12 79/48 94 L 06/21/23 23:48 11 L 104/58 92 L 06/21/23 22:50 73 11 L 97/64 94 L 06/21/23 22:18 97.6 F 65 18 102/79 95 Intake and Output 06/21/23 06/22/23 06/22/23 22:59 06:59 14:59 Other: Voiding Method External Catheter Weight 127.006 kg 106.5 kg Results 06/21/23 22:57 06/21/23 22:57 Cardiac Enzymes 06/21/23 Range/Units 22:57 AST 60 H (17-59) U/L Coagulation 06/22/23 Range/Units 03:04 PT 11.3 (9.0-12.0) sec APTT 27.3 (22.0-30.0) sec CBC 06/21/23 Range/Units 22:57 WBC 10.3 (3.8-10.6) k/uL RBC 4.41 (4.30-5.90) m/uL Hgb 11.0 L (13.0-17.5) gm/dL Hct 35.4 L (39.0-53.0) % Plt Count 194 (150-450) k/uL Comprehensive Metabolic Panel 06/21/23 Range/Units 22:57 Sodium 135 L (137-145) mmol/L Potassium 3.6 (3.5-5.1) mmol/L Chloride 99 (98-107) mmol/L Carbon Dioxide 24 (22-30) mmol/L BUN 23 H (9-20) mg/dL Creatinine 1.85 H (0.66-1.25) mg/dL Glucose 97 (74-99) mg/dL Calcium 9.1 (8.4-10.2) mg/dL AST 60 H (17-59) U/L ALT 17 (4-49) U/L Alkaline Phosphatase 92 (38-126) U/L Total Protein 7.1 (6.3-8.2) g/dL Albumin 3.4 L (3.5-5.0) g/dL Current Medications Generic Name Dose Route Start Last Admin Trade Name Freq PRN Reason Stop Dose Admin Acetaminophen 650 mg 06/22/23 00:44 06/22/23 08:43 Acetaminophen Tab 325 Mg Tab PO 650 mg Q6HR PRN Administration Mild Pain or Fever > 100.5 Albuterol/Ipratropium 3 ml 06/22/23 08:00 06/22/23 08:52 Ipratropium-Albuterol 3 Ml Neb INHALATION 3 ml RT-QID JENNIFER Administration Furosemide 60 mg 06/22/23 09:00 06/22/23 08:42 Furosemide 10 Mg/Ml 10 Ml Vial IV 60 mg Q12HR JENNIFER Administration Methylprednisolone Sodium Succinate 60 mg 06/22/23 08:00 06/22/23 08:43 Methylprednisolone Sod Succi 125 Mg/2 Ml Vial IV 60 mg Q8HR JENNIFER Administration Naloxone HCl 0.2 mg 06/22/23 00:44 Naloxone 0.4 Mg/Ml 1 Ml Vial IV Q2M PRN Opioid Reversal Intake and Output 06/21/23 06/22/23 06/22/23 22:59 06:59 14:59 Other: Voiding Method External Catheter Weight 127.006 kg 106.5 kg 06/21/23 22:57 06/21/23 22:57
[2023-06-22] MEDS ORDERED: ACETAMINOPHEN TAB 500 MG TAB PO PRN (11:38)
[2023-06-22] MEDS ORDERED: BACLOFEN 10 MG TAB PO PRN (11:38)
[2023-06-22] MEDS: SPIRONOLACTONE 25 MG TAB PO SCH (12:39)
[2023-06-22] MEDS: POTASSIUM CHLORIDE ER 20 MEQ TAB.ER PO SCH ×2 (12:39→20:28)
[2023-06-22] MEDS: TAMSULOSIN 0.4 MG CAP.ER.24H PO SCH (12:39)
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
[2023-06-22] MEDS ORDERED: IPRATROPIUM-ALBUTEROL 3 ML NEB INHALATION SCH (14:00)
[2023-06-22] MEDS: RIVAROXABAN 15 MG TAB PO SCH (17:39)
[2023-06-22] MEDS: METOPROLOL TARTRATE 25 MG TAB PO SCH (20:28)
[2023-06-22] MEDS: MONTELUKAST 10 MG TAB PO SCH (20:28)
[2023-06-22] MEDS: ATORVASTATIN 20 MG TAB PO SCH (20:28)
[2023-06-22] MEDS: traZODone HCL 50 MG TAB PO PRN (22:57)
[2023-06-23] MEDS: PANTOPRAZOLE 40 MG TABLET PO SCH (06:26)
[2023-06-23] MEDS: IPRATROPIUM-ALBUTEROL 3 ML NEB INHALATION SCH ×4 (08:02→21:10)
[2023-06-23] MEDS: DAPAGLIFLOZIN PROPANEDIOL 10 MG TABLET PO SCH (08:22)
[2023-06-23] MEDS: TAMSULOSIN 0.4 MG CAP.ER.24H PO SCH (08:22)
[2023-06-23] MEDS: SPIRONOLACTONE 25 MG TAB PO SCH (08:22)
[2023-06-23] MEDS: methylPREDNISolone SOD SUCCI 125 MG/2 ML VIAL IV SCH (08:22)
[2023-06-23] MEDS: allopurinoL 100 MG TAB PO SCH (08:22)
[2023-06-23] MEDS: CHOLECALCIFEROL 25 MCG (1000 IU) TABLET PO SCH (08:22)
[2023-06-23] MEDS: METOPROLOL TARTRATE 25 MG TAB PO SCH ×2 (08:22→21:38)
[2023-06-23] MEDS: POTASSIUM CHLORIDE ER 20 MEQ TAB.ER PO SCH ×2 (08:22→21:38)
[2023-06-23] MEDS: SERTRALINE 100 MG TAB PO SCH (08:22)
[2023-06-23] MEDS: FUROSEMIDE 10 MG/ML 10 ML VIAL IV SCH (08:24)
[2023-06-23 08:25] LABS: Anisocytosis Slight; Basophils % (A) 0 %; Eosinophils % (A) 0 %; HCT 33.7 % (39.0-53.0); HGB 10.8 gm/dL (13.0-17.5); Hypochromasia Slight; Lymphocytes # (A) 0.8 k/uL (1.0-4.8); Lymphocytes % (A) 5 %; MCH 26.1 pg (25.0-35.0); MCV 81.6 fL (80.0-100.0); Mean Platelet Volume 7.5; Microcytosis Slight; Monocytes # (A) 0.5 k/uL (0-1.0); Monocytes % (A) 3 %; Neutrophils # (A) 14.9 k/uL (1.3-7.7); Neutrophils % (A) 91 %; Platelet Count 173 k/uL (150-450); RBC 4.13 m/uL (4.30-5.90); RDW 19.1 % (11.5-15.5); WBC 16.4 k/uL (3.8-10.6)
[2023-06-23] MEDS ORDERED: DEXTROSE 50% SYRINGE 50 ML IVP PRN ×2 (08:32)
[2023-06-23 08:41] LABS: ALT 17 U/L (4-49); AST 29 U/L (17-59); African American GFR (CKD) 41 (>60 ml/min/1.73 sqM); Albumin 3.6 g/dL (3.5-5.0); Alkaline Phosphatase 85 U/L (38-126); Anion Gap 13 mmol/L; Blood Urea Nitrogen 31 mg/dL (9-20); Calcium 8.3 mg/dL (8.4-10.2); Carbon Dioxide 22 mmol/L (22-30); Chloride 98 mmol/L (98-107); Glucose 167 mg/dL (74-99); Non-African American GFR(CKD) 35 (>60 ml/min/1.73 sqM); Potassium 4.4 mmol/L (3.5-5.1); Sodium 133 mmol/L (137-145); Total Bilirubin 0.6 mg/dL (0.2-1.3)
[2023-06-23] MEDS ORDERED: NON FORMULARY DRUG (Empagliflozin [Jardiance] 10 MG Tablet) PO SCH (09:00)
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
[2023-06-23] MEDS ORDERED: HALOPERIDOL LACTATE 5 MG/ML 1 ML VIAL IM STA (13:19)
[2023-06-23] MEDS: INSULIN ASPART (NovoLOG) 100 UNIT/ML VIAL SQ SCH ×3 (16:08→21:49)
[2023-06-23] MEDS: RIVAROXABAN 15 MG TAB PO SCH (16:48)
[2023-06-23] MEDS: FUROSEMIDE 20 MG TAB PO SCH (16:48)
[2023-06-23] MEDS ORDERED: HALOPERIDOL LACTATE 5 MG/ML 1 ML VIAL IM PRN (18:30)
[2023-06-23 20:02] LABS: Glucose,Whole Blood 186 mg/dL (70-110)
[2023-06-23] MEDS ORDERED: FUROSEMIDE 10 MG/ML 4 ML VIAL IV SCH (21:00)
[2023-06-23] MEDS: MAGNESIUM SULFATE-D5W PMX 1 GM in DEXTROSE/WATER 1 100ML.BAG IVPB SCH ×3 (21:36→23:00)
[2023-06-23] MEDS: methylPREDNISolone SOD SUCCI 40 MG/ML 1 ML VIAL IV SCH (21:37)
[2023-06-23] MEDS: ATORVASTATIN 20 MG TAB PO SCH (21:38)
[2023-06-23] MEDS: MONTELUKAST 10 MG TAB PO SCH (21:38)
[2023-06-24] MEDS ORDERED: LORazepam 2 MG/ML INJ IV STA (01:14)
[2023-06-24] MEDS: traZODone HCL 50 MG TAB PO PRN ×2 (01:18→22:23)
[2023-06-24 06:33] LABS: Glucose,Whole Blood 128 mg/dL (70-110)
[2023-06-24] MEDS: INSULIN ASPART (NovoLOG) 100 UNIT/ML VIAL SQ SCH ×4 (06:34→20:15)
[2023-06-24] MEDS: IPRATROPIUM-ALBUTEROL 3 ML NEB INHALATION SCH ×4 (09:07→21:44)
[2023-06-24] MEDS: METOPROLOL TARTRATE 25 MG TAB PO SCH ×2 (09:28→20:14)
[2023-06-24] MEDS: PANTOPRAZOLE 40 MG TABLET PO SCH (09:28)
[2023-06-24] MEDS: TAMSULOSIN 0.4 MG CAP.ER.24H PO SCH (09:28)
[2023-06-24] MEDS: SPIRONOLACTONE 25 MG TAB PO SCH (09:29)
[2023-06-24] MEDS: SERTRALINE 100 MG TAB PO SCH (09:29)
[2023-06-24] MEDS: allopurinoL 100 MG TAB PO SCH (09:29)
[2023-06-24] MEDS: POTASSIUM CHLORIDE ER 20 MEQ TAB.ER PO SCH ×2 (09:29→20:21)
[2023-06-24] MEDS: FUROSEMIDE 20 MG TAB PO SCH ×2 (09:29→17:07)
[2023-06-24] MEDS: DAPAGLIFLOZIN PROPANEDIOL 10 MG TABLET PO SCH (09:29)
[2023-06-24] MEDS: methylPREDNISolone SOD SUCCI 40 MG/ML 1 ML VIAL IV SCH (09:29)
[2023-06-24] MEDS: CHOLECALCIFEROL 25 MCG (1000 IU) TABLET PO SCH (09:29)
[2023-06-24 10:05] LABS: Anisocytosis Slight; Basophils % (A) 0 %; Eosinophils % (A) 0 %; HCT 34.5 % (39.0-53.0); HGB 11.1 gm/dL (13.0-17.5); Hypochromasia Slight; Lymphocytes % (A) 7 %; MCH 26.2 pg (25.0-35.0); MCV 81.9 fL (80.0-100.0); Mean Platelet Volume 7.3; Microcytosis Slight; Monocytes # (A) 0.7 k/uL (0-1.0); Monocytes % (A) 5 %; Neutrophils # (A) 11.7 k/uL (1.3-7.7); Neutrophils % (A) 87 %; Platelet Count 203 k/uL (150-450); RBC 4.22 m/uL (4.30-5.90); RDW 19.3 % (11.5-15.5); WBC 13.5 k/uL (3.8-10.6)
[2023-06-24 10:25] LABS: ALT 17 U/L (4-49); AST 31 U/L (17-59); African American GFR (CKD) 48 (>60 ml/min/1.73 sqM); Albumin 3.6 g/dL (3.5-5.0); Alkaline Phosphatase 75 U/L (38-126); Anion Gap 13 mmol/L; Blood Urea Nitrogen 45 mg/dL (9-20); Calcium 8.7 mg/dL (8.4-10.2); Carbon Dioxide 25 mmol/L (22-30); Chloride 98 mmol/L (98-107); Glucose 107 mg/dL (74-99); Non-African American GFR(CKD) 41 (>60 ml/min/1.73 sqM); Sodium 136 mmol/L (137-145); Total Bilirubin 0.6 mg/dL (0.2-1.3); Total Protein 7.1 g/dL (6.3-8.2)
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
[2023-06-24 11:49] LABS: Glucose,Whole Blood 119 mg/dL (70-110)
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
[2023-06-24 16:49] LABS: Glucose,Whole Blood 122 mg/dL (70-110)
[2023-06-24] MEDS: RIVAROXABAN 15 MG TAB PO SCH (17:07)
[2023-06-24 19:45] LABS: Glucose,Whole Blood 173 mg/dL (70-110)
[2023-06-24] MEDS: MONTELUKAST 10 MG TAB PO SCH (20:14)
[2023-06-24] MEDS: ATORVASTATIN 20 MG TAB PO SCH (20:15)
[2023-06-25 02:50] VITALS: RESP 20
[2023-06-25 06:02] LABS: Glucose,Whole Blood 116 mg/dL (70-110)
[2023-06-25] MEDS: IPRATROPIUM-ALBUTEROL 3 ML NEB INHALATION SCH ×2 (08:28→11:37)
[2023-06-25] MEDS ORDERED: predniSONE 20 MG TAB PO SCH (09:00)
[2023-06-25] MEDS: CHOLECALCIFEROL 25 MCG (1000 IU) TABLET PO SCH (09:49)
[2023-06-25] MEDS: METOPROLOL TARTRATE 25 MG TAB PO SCH (09:49)
[2023-06-25] MEDS: PANTOPRAZOLE 40 MG TABLET PO SCH (09:49)
[2023-06-25] MEDS: FUROSEMIDE 20 MG TAB PO SCH (09:49)
[2023-06-25] MEDS: allopurinoL 100 MG TAB PO SCH (09:49)
[2023-06-25] MEDS: SERTRALINE 100 MG TAB PO SCH (09:49)
[2023-06-25] MEDS: POTASSIUM CHLORIDE ER 20 MEQ TAB.ER PO SCH (09:49)
[2023-06-25] MEDS: TAMSULOSIN 0.4 MG CAP.ER.24H PO SCH (09:49)
[2023-06-25] MEDS: SPIRONOLACTONE 25 MG TAB PO SCH (09:49)
[2023-06-25] MEDS: DAPAGLIFLOZIN PROPANEDIOL 10 MG TABLET PO SCH (09:50)
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
[2023-06-25 10:44] VITALS: BP 126/74; PULSE 94; TEMP 98
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
[2023-06-25] MEDS: INSULIN ASPART (NovoLOG) 100 UNIT/ML VIAL SQ SCH (12:21)
== END 2023-06-25 12:41 | disposition home health service (06) | DRG 291 ==
LOC: EC 22:14 → 3SCARD 06-22 00:44
PROVIDERS: ADMIT Internal Medicine; ATTEND Internal Medicine
PROC: 5A09357 Assistance with Respiratory Ventilation, Less than 24 Consecutive Hours, Continuous Positive Airway Pressure (ICD-10-PCS; principal; 2023-06-22)
DX: I11.0 Hypertensive heart disease with heart failure (principal); I50.33 Acute on chronic diastolic (congestive) heart failure; J96.21 Acute and chronic respiratory failure with hypoxia; L03.116 Cellulitis of left lower limb; L03.115 Cellulitis of right lower limb; N17.9 Acute kidney failure, unspecified; E66.2 Morbid (severe) obesity with alveolar hypoventilation; E11.42 Type 2 diabetes mellitus with diabetic polyneuropathy; I48.0 Paroxysmal atrial fibrillation; J44.9 Chronic obstructive pulmonary disease, unspecified; J45.40 Moderate persistent asthma, uncomplicated; I87.8 Other specified disorders of veins; E78.5 Hyperlipidemia, unspecified; E03.9 Hypothyroidism, unspecified; F41.1 Generalized anxiety disorder; I25.10 Atherosclerotic heart disease of native coronary artery without angina pectoris; I25.84 Coronary atherosclerosis due to calcified coronary lesion; N40.0 Benign prostatic hyperplasia without lower urinary tract symptoms; D64.9 Anemia, unspecified; F32.A Depression, unspecified; K21.9 Gastro-esophageal reflux disease without esophagitis; M10.9 Gout, unspecified; M19.90 Unspecified osteoarthritis, unspecified site; K52.9 Noninfective gastroenteritis and colitis, unspecified; M79.605 Pain in left leg; R41.0 Disorientation, unspecified; Z68.39 Body mass index [BMI] 39.0-39.9, adult; Z99.81 Dependence on supplemental oxygen; Z79.84 Long term (current) use of oral hypoglycemic drugs; Z79.85 Long-term (current) use of injectable non-insulin antidiabetic drugs; Z79.01 Long term (current) use of anticoagulants; Z79.899 Other long term (current) drug therapy; Z96.653 Presence of artificial knee joint, bilateral; Z82.49 Family history of ischemic heart disease and other diseases of the circulatory system; Z87.891 Personal history of nicotine dependence
CPT/HCPCS: 36415; 71046; 80053; 83735; 83880; 85025; 85610; 85730; 87324; 93005; 94640; 94660; 94760; 96365; 96375; 99285

== ENCOUNTER 2023-07-05 19:42 | Inpatient (IN) | payer MEDICARE, BC ==
--- NOTE | 2023-07-05 20:14 | ED ---
General Adult HPI - General Chief complaint: Altered Mental Status Stated complaint: Altered mental Time Seen by Provider: 07/05/23 20:13 Source: patient, EMS Mode of arrival: EMS Limitations: no limitations - History of Present Illness Initial comments: Patient presents to the ED by ambulance for evaluation. Per EMS, the patient's neighbor reports a change in the patient's mental status. Patient states that he lives alone and his neighbor helps him. Patient is alert and oriented to person, place and day of the week. Patient is unable to tell me which month we are in. Patient is answering all questions appropriately at this time. Patient is complaining of having bilateral lower leg pain. Patient has open wounds noted to his bilateral lower legs with drainage. Patient states that he is followed by Dr. Leon for these wounds. Patient denies any other site of pain, trauma or injury, head injury, headache, focal neuro deficit, visual changes, speech difficulty, neck/back/upper extremity pain, chest pain, dyspnea, cough or cold symptoms, palpitations, dizziness, abdominal pain, nausea/vomiting/diarrhea, bloody or melanotic stool, dysuria or urinary symptoms, or any other symptoms or complaints. - Related Data Home Medications Medication Instructions Recorded Confirmed Metoprolol Tartrate 25 mg PO BID 11/02/14 07/05/23 allopurinoL [Zyloprim] 200 mg PO DAILY 11/02/14 07/05/23 Sertraline [Zoloft] 100 mg PO DAILY 04/04/17 07/05/23 Atorvastatin [Lipitor] 20 mg PO HS 07/14/19 07/05/23 Spironolactone [Aldactone] 25 mg PO DAILY 07/14/19 07/05/23 Tamsulosin [Flomax] 0.4 mg PO DAILY 07/14/19 07/05/23 Ipratropium-Albuterol Nebulize 3 ml INHALATION RT-Q6H 08/19/19 07/05/23 [Duoneb 0.5 mg-3 mg/3 ml Soln] Acetaminophen Tab [Tylenol] 500 mg PO Q6H PRN 03/26/23 07/05/23 Cholecalciferol [Vitamin D3 (25 50 mcg PO DAILY 03/26/23 07/05/23 Mcg = 1000 Iu)] Empagliflozin [Jardiance] 10 mg PO DAILY 03/26/23 07/05/23 Pantoprazole [Protonix] 40 mg PO DAILY 03/26/23 07/05/23 Potassium Chloride ER [K-Dur 20] 20 meq PO BID 03/26/23 07/05/23 tadalafiL 5 mg PO DAILY PRN 03/26/23 07/05/23 Ammonium Lactate Lotion 1 applic TOPICAL BID 06/22/23 07/05/23 [Lac-Hydrin 12% Lotion] Dapagliflozin Propanediol [Farxiga] 10 mg PO DAILY 06/22/23 07/05/23 Semaglutide [Ozempic] 0.5 mg SQ Q7D 06/22/23 07/05/23 traZODone HCL 150 mg PO HS PRN 06/22/23 07/05/23 Cephalexin [Keflex] 500 mg PO DIRECTED 07/05/23 07/05/23 Furosemide [Lasix] 60 mg PO DIRECTED 07/05/23 07/05/23 Furosemide [Lasix] 80 mg PO DIRECTED 07/05/23 07/05/23 predniSONE See Taper PO DIRECTED 07/05/23 07/05/23 Previous Rx's Medication Instructions Recorded Montelukast [Singulair] 10 mg PO HS #30 tab 11/07/14 Baclofen [Lioresal] 10 mg PO BID PRN tab 03/31/23 SILVER sulfADIAZINE Cream 1 applic TOPICAL DAILY each 03/31/23 [Silvadene 1% Cream] Rivaroxaban [Xarelto] 15 mg PO W/SUPPER #30 tab 06/25/23 Allergies Allergy/AdvReac Type Severity Reaction Status Date / Time No Known Allergies Allergy Verified 07/05/23 21:28 Review of Systems ROS Statement: Those systems with pertinent positive or pertinent negative responses have been documented in the HPI. ROS Other: All systems not noted in ROS Statement are negative. Past Medical History Past Medical History: Asthma, Chest Pain / Angina, GERD/Reflux, Hyperlipidemia, Hypertension, Osteoarthritis (OA), Pneumonia, Sleep Apnea/CPAP/BIPAP Additional Past Medical History / Comment(s): uses oxygen at night 2L, gout, in wheelchair or walker due to pain in left leg, poor circulation in legs(takes coumadin for) History of Any Multi-Drug Resistant Organisms: None Reported Past Surgical History: Orthopedic Surgery, Tonsillectomy Additional Past Surgical History / Comment(s): LEFT WRIST ORIF, LEFT KNEE REPLACEMENT, bilateral cataract surgery Past Anesthesia/Blood Transfusion Reactions: No Reported Reaction Additional Past Anesthesia/Blood Transfusion Reaction / Comment(s): . Past Psychological History: No Psychological Hx Reported, Depression Smoking Status: Former smoker Past Alcohol Use History: None Reported Past Drug Use History: None Reported - Past Family History Mother Family Medical History: Congestive Heart Failure (CHF), Osteoarthritis (OA) Father Additional Family Medical History / Comment(s): FROM [place] Brother(s) Family Medical History: Cancer Additional Family Medical History / Comment(s): . Sister(s) Family Medical History: Deep Vein Thrombosis (DVT) General Exam General appearance: alert, in no apparent distress Head exam: Present: atraumatic, normocephalic Eye exam: Present: normal appearance, PERRL, EOMI ENT exam: Present: mucous membranes moist Neck exam: Present: other (No nuchal rigidity; trachea is in midline). Absent: tenderness, meningismus Respiratory exam: Present: normal lung sounds bilaterally. Absent: respiratory distress, wheezes, rales, rhonchi, stridor Cardiovascular Exam: Present: regular rate, normal rhythm, normal heart sounds, other (Normal radial pulses bilaterally) GI/Abdominal exam: Present: soft, other (Obese abdomen). Absent: tenderness, guarding Extremities exam: Present: other (2+ bilateral lower extremity pitting edema; draining wounds are noted to the patient's bilateral tibial regions with surrounding blanching erythema and tenderness consistent with cellulitis; wound cultures were obtained; no crepitation or fluctuance is appreciated) Back exam: Absent: CVA tenderness (R), CVA tenderness (L) Neurological exam: Present: alert, oriented X3, CN II-XII intact. Absent: motor sensory deficit Skin exam: Present: warm, dry Course Vital Signs 07/05/23 07/05/23 19:43 22:28 Temperature 97.6 F Pulse Rate 128 H 96 Respiratory 18 18 Rate Blood Pressure 112/65 108/62 O2 Sat by Pulse 93 L 94 L Oximetry - Reevaluation(s) Reevaluation #1: 07/05/23 22:42 Case, H&P, test results and ED management thus far were discussed with Dr. Leon. He accepts hospital admission. He requests ID consultation. He has no further recommendations at this time. 07/05/23 22:47 Patient remains alert and breathing comfortably. Patient is aware of his test results, and he agrees with hospital admission at this time. EKG Findings - EKG Comments: EKG Findings:: ED physician interpretation (interpreted by me): Suspected atrial fibrillation with RVR and PVCs vs. aberrant conduction, ventricular rate 120 bpm, normal QRS duration, normal QT interval, normal axis, no ST or T-wave abnormality Medical Decision Making - Medical Decision Making Was pt. sent in by a medical professional or institution (, PA, DUPLIGRAPH OPERATOR, urgent care, hospital, or group home...) When possible be specific @ -No Did you speak to anyone other than the patient for history (EMS, parent, family, police, friend...)? What history was obtained from this source @ -No Did you review nursing and triage notes (agree or disagree)? Why? @ -I reviewed and agree with nursing and triage notes Were old charts reviewed (outside hosp., previous admission, EMS record, old EKG, old radiological studies, urgent care reports/EKG's, group home records)? Report findings @ -No old charts were reviewed Differential Diagnosis (chest pain, altered mental status, abdominal pain women, abdominal pain men, vaginal bleeding, weakness, fever, dyspnea, syncope, headache, dizziness, GI bleed, back pain, seizure, CVA, palpatations, mental health, musculoskeletal)? @ -Differential Altered Mental Status: Hypoglycemia, DKA, hypercapnia, ETOH, overdose, HTN, encephalopathy, infection, cellulitis, psychosis, intracranial hemorrhage, hepatic encephalopathy, CVA, medication reaction, this is not meant to be an all-inclusive list EKG interpreted by me (3pts min.). @ -As above X-rays interpreted by me (1pt min.). @ -Chest x-ray was reviewed myself and shows increased pulmonary vascular mar kings. I agree with the radiologist's interpretation as above. Bilateral tib/fib x-rays were reviewed myself and showed no acute osseous abnormality. I agree with the radiologist's interpretation as above. CT interpreted by me (1pt min.). @ -Noncontrast head CT was reviewed myself and shows no acute intracranial abnormality. I agree with the radiologist's interpretation as above. U/S interpreted by me (1pt. min.). @ -None done What testing was considered but not performed or refused? (CT, X-rays, U/S, labs)? Why? @ -None What meds were considered but not given or refused? Why? @ -None Did you discuss the management of the patient with other professionals (professionals i.e. , PA, DUPLIGRAPH OPERATOR, lab, RT, psych nurse, medical social worker, biodiesel operations manager, teacher, school resource officer, special education case manager)? Give summary @ -As above. Was smoking cessation discussed for >3mins.? @ -No Was critical care preformed (if so, how long)? @ -No Were there social determinants of health that impacted care today? How? (Homelessness, low income, unemployed, alcoholism, drug addiction, transportation, low edu. Level, literacy, decrease access to med. care, prison, rehab)? @ -No Was there de-escalation of care discussed even if they declined (Discuss DNR or withdrawal of care, Hospice)? DNR status @ -No What co-morbidities impacted this encounter? (DM, HTN, Smoking, COPD, CAD, Cancer, CVA, ARF, Chemo, Hep., AIDS, mental health diagnosis, sleep apnea, morbid obesity)? @ -None Was patient admitted / discharged? Hospital course, mention meds given and route, prescriptions, significant lab abnormalities, going to OR and other pert inent info. @ -Patient's physical exam findings are consistent with bilateral lower extremity cellulitis. Patient is afebrile and without leukocytosis. Patient's head CT shows no acute intracranial abnormality. Patient's labs are fairly unremarkable. Patient has not provided a urine specimen as of yet. Given the patient's lower extremity cellulitis and reported altered mentation, will admit the patient to the hospital for observation and IV antibiotic treatment. Dr. Leon has accepted hospital admission. Undiagnosed new problem with uncertain prognosis? @ -No Drug Therapy requiring intensive monitoring for toxicity (Heparin, Nitro, Insulin, Cardizem)? @ -No Were any procedures done? @ -No Diagnosis/symptom? @ -Altered mental status Acute, or Chronic, or Acute on Chronic? @ -Acute Uncomplicated (without systemic symptoms) or Complicated (systemic symptoms)? @ -default Side effects of treatment? @ -No Exacerbation, Progression, or Severe Exacerbation? @ -No Poses a threat to life or bodily function? How? (Chest pain, [place], CA, pneumonia, PE, COPD, DKA, ARF, appy, cholecystitis, CVA, Diverticulitis, Homicidal, Suicidal, threat to staff... and all critical care pts) @ -No Diagnosis/symptom? @ -Bilateral lower extremity cellulitis Acute, or Chronic, or Acute on Chronic? @ -default Uncomplicated (without systemic symptoms) or Complicated (systemic symptoms)? @ -default Side effects of treatment? @ -none Exacerbation, Progression, or Severe Exacerbation] @ -no Poses a threat to life or bodily function? @ -no - Lab Data Result diagrams: 07/05/23 20:29 07/05/23 20:29 Lab Results 07/05/23 07/05/23 07/05/23 Range/Units 20:29 20:29 20:29 WBC 10.4 (3.8-10.6) k/uL RBC 4.25 L (4.30-5.90) m/uL Hgb 11.3 L (13.0-17.5) gm/dL Hct 34.3 L (39.0-53.0) % MCV 80.5 (80.0-100.0) fL MCH 26.7 (25.0-35.0) pg MCHC 33.1 (31.0-37.0) g/dL RDW 19.8 H (11.5-15.5) % Plt Count 172 (150-450) k/uL MPV 7.1 Neutrophils % 78 % Lymphocytes % 11 % Monocytes % 7 % Eosinophils % 2 % Basophils % 0 % Neutrophils # 8.1 H (1.3-7.7) k/uL Lymphocytes # 1.2 (1.0-4.8) k/uL Monocytes # 0.7 (0-1.0) k/uL Eosinophils # 0.2 (0-0.7) k/uL Basophils # 0.0 (0-0.2) k/uL Anisocytosis Slight Microcytosis Slight PT 14.0 H (9.0-12.0) sec INR 1.4 H (<1.2) APTT 33.8 H (22.0-30.0) sec Sodium 134 L (137-145) mmol/L Potassium 3.8 (3.5-5.1) mmol/L Chloride 101 (98-107) mmol/L Carbon Dioxide 23 (22-30) mmol/L Anion Gap 10 mmol/L BUN 10 (9-20) mg/dL Creatinine 1.03 (0.66-1.25) mg/dL Est GFR (CKD-EPI)AfAm 84 (>60 ml/min/1.73 sqM) Est GFR (CKD-EPI)NonAf 73 (>60 ml/min/1.73 sqM) Glucose 94 (74-99) mg/dL Calcium 8.9 (8.4-10.2) mg/dL Total Bilirubin 2.0 H (0.2-1.3) mg/dL AST 43 (17-59) U/L ALT 29 (4-49) U/L Alkaline Phosphatase 138 H (38-126) U/L Ammonia (<30) umol/L Troponin I (0.000-0.034) ng/mL Total Protein 7.2 (6.3-8.2) g/dL Albumin 3.7 (3.5-5.0) g/dL Serum Alcohol <10 mg/dL 07/05/23 07/05/23 Range/Units 20:29 20:29 WBC (3.8-10.6) k/uL RBC (4.30-5.90) m/uL Hgb (13.0-17.5) gm/dL Hct (39.0-53.0) % MCV (80.0-100.0) fL MCH (25.0-35.0) pg MCHC (31.0-37.0) g/dL RDW (11.5-15.5) % Plt Count (150-450) k/uL MPV Neutrophils % % Lymphocytes % % Monocytes % % Eosinophils % % Basophils % % Neutrophils # (1.3-7.7) k/uL Lymphocytes # (1.0-4.8) k/uL Monocytes # (0-1.0) k/uL Eosinophils # (0-0.7) k/uL Basophils # (0-0.2) k/uL Anisocytosis Microcytosis PT (9.0-12.0) sec INR (<1.2) APTT (22.0-30.0) sec Sodium (137-145) mmol/L Potassium (3.5-5.1) mmol/L Chloride (98-107) mmol/L Carbon Dioxide (22-30) mmol/L Anion Gap mmol/L BUN (9-20) mg/dL Creatinine (0.66-1.25) mg/dL Est GFR (CKD-EPI)AfAm (>60 ml/min/1.73 sqM) Est GFR (CKD-EPI)NonAf (>60 ml/min/1.73 sqM) Glucose (74-99) mg/dL Calcium (8.4-10.2) mg/dL Total Bilirubin (0.2-1.3) mg/dL AST (17-59) U/L ALT (4-49) U/L Alkaline Phosphatase (38-126) U/L Ammonia <9 (<30) umol/L Troponin I <0.012 (0.000-0.034) ng/mL Total Protein (6.3-8.2) g/dL Albumin (3.5-5.0) g/dL Serum Alcohol mg/dL - Radiology Data Chest x-ray: Cardiomegaly with prominent pulmonary vascular markings. Slight increased lung markings are on the left. Correlate for pulmonary edema. Consider congestive heart failure. Follow up can be performed as clinically indicated. Bilateral tib/fib x-rays: 1. Mild diffuse soft tissue swelling. Findings can be compatible with cellulitis. 2. No suspicious changes to suggest underlying osteomyelitis. Noncontrast head CT: 1. Age related atrophy. 2. No acute intracranial process. Follow-up MRI can be performed as clinically indicated. Disposition Clinical Impression: Altered mental status, Bilateral lower leg cellulitis Disposition: ADMITTED IP TO THIS [facility] Condition: Stable Is patient prescribed a controlled substance at d/c from ED?: No Referrals: Alison Leon MD [Primary Care Provider] - 1-2 days Time of Disposition: 22:44
[2023-07-05] MEDS ORDERED: VANCOMYCIN IV PER PHARMACY 1 EACH MISC MISCELLANE PRN (20:32)
[2023-07-05] MEDS ORDERED: VANCOMYCIN 1,750 MG in SODIUM CHLORIDE 0.9% 500 ML 500 ML IVPB STA (20:41)
[2023-07-05 20:45] LABS: Anisocytosis Slight; Basophils % (A) 0 %; Eosinophils # (A) 0.2 k/uL (0-0.7); Eosinophils % (A) 2 %; HCT 34.3 % (39.0-53.0); HGB 11.3 gm/dL (13.0-17.5); Lymphocytes # (A) 1.2 k/uL (1.0-4.8); Lymphocytes % (A) 11 %; MCH 26.7 pg (25.0-35.0); MCHC 33.1 g/dL (31.0-37.0); MCV 80.5 fL (80.0-100.0); Mean Platelet Volume 7.1; Microcytosis Slight; Monocytes # (A) 0.7 k/uL (0-1.0); Monocytes % (A) 7 %; Neutrophils # (A) 8.1 k/uL (1.3-7.7); Neutrophils % (A) 78 %; Platelet Count 172 k/uL (150-450); RBC 4.25 m/uL (4.30-5.90); RDW 19.8 % (11.5-15.5); WBC 10.4 k/uL (3.8-10.6)
[2023-07-05 20:56] LABS: ALT 29 U/L (4-49); AST 43 U/L (17-59); African American GFR (CKD) 84 (>60 ml/min/1.73 sqM); Albumin 3.7 g/dL (3.5-5.0); Alcohol <10 mg/dL; Alkaline Phosphatase 138 U/L (38-126); Anion Gap 10 mmol/L; Blood Urea Nitrogen 10 mg/dL (9-20); Calcium 8.9 mg/dL (8.4-10.2); Carbon Dioxide 23 mmol/L (22-30); Chloride 101 mmol/L (98-107); Glucose 94 mg/dL (74-99); Non-African American GFR(CKD) 73 (>60 ml/min/1.73 sqM); Potassium 3.8 mmol/L (3.5-5.1); Sodium 134 mmol/L (137-145); Total Protein 7.2 g/dL (6.3-8.2)
[2023-07-05 21:02] LABS: INR 1.4 (<1.2); Partial Thromboplastin Time 33.8 sec (22.0-30.0)
--- NOTE | 2023-07-05 21:19 | CT ---
EXAMINATION TYPE: CT brain wo con DATE OF EXAM: 07/05/2023 COMPARISON: None INDICATION: AMS DLP: 1137.4 mGycm, Automated exposure control for dose reduction was used. CONTRAST: None CT of the brain is performed utilizing 3 mm thick sections through the posterior fossa and 3 mm thick sections through the remaining calvarium. Study is performed within 24 hours of arrival to the hosp ital. No abnormal hyperdensity is present to suggest an acute intracranial hemorrhage. No mass lesion is evident. No acute infarcts are evident. Ventricles and sulci are prominent for the patient age. Paranasal sinuses and mastoid air cells within the [id number] are clear. IMPRESSIONS: 1. Age-related atrophy. 2. No acute intracranial process. Follow-up MRI can be performed as clinically indicated.
--- NOTE | 2023-07-05 22:35 | XR ---
EXAMINATION TYPE: XR chest 1V portable DATE OF EXAM: 07/05/2023 COMPARISON: 06/21/2023 INDICATION: Altered mental status TECHNIQUE: Single frontal view of the chest is obtained. FINDINGS: The heart size is enlarged. The pulmonary vasculature is prominent. Some increased lung markings at the left lung. Correlate for pulmonary edema. IMPRESSION: 1. Cardiomegaly with prominent pulmonary vascular markings. Slight increased lung markings are on the left. Correlate for pulmonary edema. Consider congestive heart failure. Follow-up can be performed a s clinically indicated.
--- NOTE | 2023-07-05 22:37 | XR ---
EXAMINATION TYPE: XR tibia fibula bilateral DATE OF EXAM: 07/05/2023 COMPARISON: None HISTORY: Cellulitis, wounds TECHNIQUE: Bilateral lower extremities are examined with AP and lateral views of the tibia and fibula . Left knee prosthesis is present. Soft tissues have mild prominence. No acute fractures are evident. N o cortical erosions are evident. There are degenerative changes at the right knee. Right lower extremity soft tissue swelling is prese nt. No cortical erosions are present vascular calcification is noted. FINDINGS: 1. Mild diffuse soft tissue swelling. Findings can be compatible with cellulitis. 2. No suspicious changes to suggest underlying osteomyelitis. IMPRESSION: 1.
[2023-07-05] MEDS ORDERED: NALOXONE 0.4 MG/ML 1 ML VIAL IV PRN (22:44)
[2023-07-06 01:52] LABS: Appearance,Urine Clear (Clear); Bilirubin,Urine Negative (Negative); Blood,Urine Negative (Negative); Color,Urine Light Red; Glucose,Urine (UA) Negative (Negative); Ketones,Urine Negative (Negative); Leukocyte Esterase,Urine Negative (Negative); Nitrite,Urine Negative (Negative); PH, Urine 6.5 (5.0-8.0); Protein,Urine Trace (Negative); Specific Gravity,Urine 1.016 (1.001-1.035)
[2023-07-06 02:05] LABS: Amphetamine Screen,Urine Not Detected (NotDetected); Barbiturate Screen,Urine Not Detected (NotDetected); Benzodiazepines Screen,Urine Not Detected (NotDetected); Cocaine Screen,Urine Not Detected (NotDetected); Methadone Screen, Urine Not Detected (NotDetected); Opiate Screen,Urine Not Detected (NotDetected); Oxycodone Screen, Urine Not Detected (NotDetected); Phencyclidine Screen,Urine Not Detected (NotDetected); Tricyclic Antidepressant,Urine Not Detected (NotDetected); Urn Cannabinoid Scrn Not Detected (NotDetected)
[2023-07-06 06:00] LABS: Anisocytosis Slight; Basophils % (A) 0 %; Eosinophils # (A) 0.2 k/uL (0-0.7); Eosinophils % (A) 2 %; HCT 31.7 % (39.0-53.0); HGB 10.5 gm/dL (13.0-17.5); Hypochromasia Slight; Lymphocytes # (A) 0.9 k/uL (1.0-4.8); Lymphocytes % (A) 9 %; MCH 26.8 pg (25.0-35.0); MCHC 33.2 g/dL (31.0-37.0); MCV 80.9 fL (80.0-100.0); Mean Platelet Volume 6.9; Microcytosis Slight; Monocytes # (A) 0.8 k/uL (0-1.0); Monocytes % (A) 8 %; Neutrophils # (A) 8.4 k/uL (1.3-7.7); Neutrophils % (A) 80 %; Platelet Count 155 k/uL (150-450); RBC 3.92 m/uL (4.30-5.90); RDW 19.6 % (11.5-15.5); WBC 10.4 k/uL (3.8-10.6)
[2023-07-06 06:16] LABS: ALT 24 U/L (4-49); AST 34 U/L (17-59); African American GFR (CKD) 83 (>60 ml/min/1.73 sqM); Alkaline Phosphatase 119 U/L (38-126); Anion Gap 8 mmol/L; Blood Urea Nitrogen 10 mg/dL (9-20); Calcium 8.2 mg/dL (8.4-10.2); Carbon Dioxide 22 mmol/L (22-30); Chloride 106 mmol/L (98-107); Glucose 106 mg/dL (74-99); Non-African American GFR(CKD) 72 (>60 ml/min/1.73 sqM); Potassium 3.6 mmol/L (3.5-5.1); Sodium 136 mmol/L (137-145); Total Bilirubin 1.4 mg/dL (0.2-1.3); Total Protein 5.9 g/dL (6.3-8.2)
[2023-07-06] MEDS ORDERED: POTASSIUM CHLORIDE ER 20 MEQ TAB.ER PO STA (11:27)
[2023-07-06] MEDS ORDERED: VANCOMYCIN IV PER PHARMACY 1 EACH MISC MISCELLANE PRN (11:28)
[2023-07-06] MEDS ORDERED: NON FORMULARY DRUG (Semaglutide [Ozempic] 0.25 MG/0.2 ML Each) SQ SCH (11:30)
[2023-07-06] MEDS: IPRATROPIUM-ALBUTEROL 3 ML NEB INHALATION SCH ×2 (11:38→20:37)
--- NOTE | 2023-07-06 11:39 | P.HPIM ---
History of Present Illness Patient was brought in because of altered mental status. Patient has multiple medical problems patient has a ulcer in the right lower extremity for which patient is on Keflex unknown whether patient has MRSA history patient is alert oriented 3 at this time unknown if this is his baseline. Although patient does have some confusion. Patient denied any fever chills. Patient had leukocytosis which improved with a dose of vancomycin. Patient does use oxygen at home wasn't given fluids approximately uses at home patient does have history of COPD. Patient is obese. Chest x-ray did show pulmonary edema along with a BNP, patient does have significant swelling in bilateral lower extremities which will require IV Lasix patient does take Lasix as an outpatient. Patient is morbidly obese with a history of sleep apnea. Patient does have history of chronic diastolic dysfunction with normal ejection fraction the past. REVIEW OF SYSTEMS: CONSTITUTIONAL: No fever, no malaise, no fatigue. HEENT: No recent visual problems or hearing problems. Denied any sore throat. CARDIOVASCULAR: No chest pain, orthopnea, PND, no palpitations, no syncope. PULMONARY: No shortness of breath, no cough, no hemoptysis. GASTROINTESTINAL: No diarrhea, no nausea, no vomiting, no abdominal pain. NEUROLOGICAL: No headaches, no weakness, no numbness. HEMATOLOGICAL: Denies any bleeding or petechiae. GENITOURINARY: Denies any burning micturition, frequency, or urgency. MUSCULOSKELETAL/RHEUMATOLOGICAL: Denies any joint pain, swelling, or any muscle pain. ENDOCRINE: Denies any polyuria or polydipsia. The rest of the 14-point review of systems is negative. PHYSICAL EXAMINATION: GENERAL: The patient is alert and oriented x3, not in any acute distress. Well developed, well nourished. Morbidly obese HEENT: Pupils are round and equally reacting to light. EOMI. No scleral icterus. No conjunctival pallor. Normocephalic, atraumatic. No pharyngeal erythema. No thyromegaly. CARDIOVASCULAR: S1 and S2 present. No murmurs, rubs, or gallops. PULMONARY: Chest is clear to auscultation, no wheezing or crackles. ABDOMEN: Soft, nontender, nondistended, normoactive bowel sounds. No palpable organomegaly. MUSCULOSKELETAL: No joint swelling or deformity. EXTREMITIES: No cyanosis, clubbing, exensive pedal edema. NEUROLOGICAL: Gross neurological examination did not reveal any focal deficits. SKIN: Sister also with cellulitis of the right lower extremity Assessment and plan -Cellulitis of the right lower extending the with an ulcer, failed outpatient with Keflex, patient was started on vancomycin and infectious disease will be consulted. -Possibl2 congestive heart failure chronic systolic dysfunction with acute exacerbation patient was started on IV Lasix, monitor input and output. Patient probably has chronic venous stasis of bilateral lower extremity -Diabetic peripheral neuropathy next 1 type 2 diabetes mellitus patient will be resumed on home regimen along with sliding scale insulin monitor blood sugars -Hyperlipidemia -Possible toxic encephalopathy from cellulitis which improved at this time -Proximal A. fib: Patient is on anti-coagulation which will be resumed and patient was resumed on metoprolol -Hypertension -COPD without any acute exacerbation -Chronic respiratory failure secondary to emphysema COPD next line have been benign prostatic hypertrophy -Diabetic peripheral neuropathy - DVT prophylaxis: Patient is on anti-coagulation Past Medical History Past Medical History: Asthma, Chest Pain / Angina, GERD/Reflux, Hyperlipidemia, Hypertension, Osteoarthritis (OA), Pneumonia, Sleep Apnea/CPAP/BIPAP Additional Past Medical History / Comment(s): uses oxygen at night 2L, gout, in wheelchair or walker due to pain in left leg, poor circulation in legs(takes coumadin for) History of Any Multi-Drug Resistant Organisms: None Reported Past Surgical History: Orthopedic Surgery, Tonsillectomy Additional Past Surgical History / Comment(s): LEFT WRIST ORIF, LEFT KNEE REPLACEMENT, bilateral cataract surgery Past Anesthesia/Blood Transfusion Reactions: No Reported Reaction Additional Past Anesthesia/Blood Transfusion Reaction / Comment(s): . Past Psychological History: No Psychological Hx Reported, Depression Smoking Status: Former smoker Past Alcohol Use History: None Reported Past Drug Use History: None Reported - Past Family History Mother Family Medical History: Congestive Heart Failure (CHF), Osteoarthritis (OA) Father Additional Family Medical History / Comment(s): FROM [place] Brother(s) Family Medical History: Cancer Additional Family Medical History / Comment(s): . Sister(s) Family Medical History: Deep Vein Thrombosis (DVT) Medications and Allergies Home Medications Medication Instructions Recorded Confirmed Type Metoprolol Tartrate 25 mg PO BID 11/02/14 07/05/23 History allopurinoL [Zyloprim] 200 mg PO DAILY 11/02/14 07/05/23 History Montelukast [Singulair] 10 mg PO HS #30 tab 11/07/14 07/05/23 Rx Sertraline [Zoloft] 100 mg PO DAILY 04/04/17 07/05/23 History Atorvastatin [Lipitor] 20 mg PO HS 07/14/19 07/05/23 History Spironolactone [Aldactone] 25 mg PO DAILY 07/14/19 07/05/23 History Tamsulosin [Flomax] 0.4 mg PO DAILY 07/14/19 07/05/23 History Ipratropium-Albuterol Nebulize 3 ml INHALATION RT-Q6H 08/19/19 07/05/23 History [Duoneb 0.5 mg-3 mg/3 ml Soln] Acetaminophen Tab [Tylenol] 500 mg PO Q6H PRN 03/26/23 07/05/23 History Cholecalciferol [Vitamin D3 (25 50 mcg PO DAILY 03/26/23 07/05/23 History Mcg = 1000 Iu)] Empagliflozin [Jardiance] 10 mg PO DAILY 03/26/23 07/05/23 History Pantoprazole [Protonix] 40 mg PO DAILY 03/26/23 07/05/23 History Potassium Chloride ER [K-Dur 20] 20 meq PO BID 03/26/23 07/05/23 History tadalafiL 5 mg PO DAILY PRN 03/26/23 07/05/23 History Baclofen [Lioresal] 10 mg PO BID PRN tab 03/31/23 07/05/23 Rx SILVER sulfADIAZINE Cream 1 applic TOPICAL DAILY each 03/31/23 07/05/23 Rx [Silvadene 1% Cream] Ammonium Lactate Lotion 1 applic TOPICAL BID 06/22/23 07/05/23 History [Lac-Hydrin 12% Lotion] Dapagliflozin Propanediol [Farxiga] 10 mg PO DAILY 06/22/23 07/05/23 History Semaglutide [Ozempic] 0.5 mg SQ Q7D 06/22/23 07/05/23 History traZODone HCL 150 mg PO HS PRN 06/22/23 07/05/23 History Rivaroxaban [Xarelto] 15 mg PO W/SUPPER #30 tab 06/25/23 07/05/23 Rx Cephalexin [Keflex] 500 mg PO DIRECTED 07/05/23 07/05/23 History Furosemide [Lasix] 60 mg PO DIRECTED 07/05/23 07/05/23 History Furosemide [Lasix] 80 mg PO DIRECTED 07/05/23 07/05/23 History predniSONE See Taper PO DIRECTED 07/05/23 07/05/23 History Allergies Allergy/AdvReac Type Severity Reaction Status Date / Time No Known Allergies Allergy Verified 07/05/23 21:28 Physical Exam Vitals: Vital Signs Temp Pulse Pulse Resp BP BP Pulse Ox 07/06/23 07:52 98.1 F 90 20 121/70 96 07/06/23 05:00 74 20 105/60 95 07/06/23 00:39 82 18 112/62 95 07/05/23 22:28 96 18 108/62 94 L 07/05/23 19:43 97.6 F 128 H 18 112/65 93 L Intake and Output 07/05/23 07/06/23 07/06/23 22:59 06:59 14:59 Other: Weight 113.398 kg Results CBC & Chem 7: 07/06/23 05:48 07/06/23 05:48 Labs: Abnormal Lab Results - Last 24 Hours (Table) 07/05/23 07/05/23 07/05/23 Range/Units 20:29 20:29 20:29 RBC 4.25 L (4.30-5.90) m/uL Hgb 11.3 L (13.0-17.5) gm/dL Hct 34.3 L (39.0-53.0) % RDW 19.8 H (11.5-15.5) % Neutrophils # 8.1 H (1.3-7.7) k/uL Lymphocytes # (1.0-4.8) k/uL PT 14.0 H (9.0-12.0) sec INR 1.4 H (<1.2) APTT 33.8 H (22.0-30.0) sec Sodium 134 L (137-145) mmol/L Glucose (74-99) mg/dL Calcium (8.4-10.2) mg/dL Total Bilirubin 2.0 H (0.2-1.3) mg/dL Alkaline Phosphatase 138 H (38-126) U/L Total Protein (6.3-8.2) g/dL Albumin (3.5-5.0) g/dL Urine Protein (Negative) 07/06/23 07/06/23 07/06/23 Range/Units 01:41 05:48 05:48 RBC 3.92 L (4.30-5.90) m/uL Hgb 10.5 L (13.0-17.5) gm/dL Hct 31.7 L (39.0-53.0) % RDW 19.6 H (11.5-15.5) % Neutrophils # 8.4 H (1.3-7.7) k/uL Lymphocytes # 0.9 L (1.0-4.8) k/uL PT (9.0-12.0) sec INR (<1.2) APTT (22.0-30.0) sec Sodium 136 L (137-145) mmol/L Glucose 106 H (74-99) mg/dL Calcium 8.2 L (8.4-10.2) mg/dL Total Bilirubin 1.4 H (0.2-1.3) mg/dL Alkaline Phosphatase (38-126) U/L Total Protein 5.9 L (6.3-8.2) g/dL Albumin 3.0 L (3.5-5.0) g/dL Urine Protein Trace H (Negative)
[2023-07-06 11:54] LABS: Glucose,Whole Blood 116 mg/dL (70-110)
[2023-07-06] MEDS: INSULIN ASPART (NovoLOG) 100 UNIT/ML VIAL SQ SCH ×3 (12:23→22:38)
[2023-07-06] MEDS: PANTOPRAZOLE 40 MG TABLET PO SCH (12:27)
[2023-07-06] MEDS: FUROSEMIDE 10 MG/ML 4 ML VIAL IV SCH ×2 (12:28→20:27)
[2023-07-06] MEDS: TAMSULOSIN 0.4 MG CAP.ER.24H PO SCH (12:28)
[2023-07-06] MEDS ORDERED: VANCOMYCIN 1,750 MG in SODIUM CHLORIDE 0.9% 500 ML 500 ML IVPB SCH (14:00)
[2023-07-06] MEDS: VANCOMYCIN 1,750 MG in SODIUM CHLORIDE 0.9% 500 ML 500 ML IVPB SCH (15:01)
[2023-07-06 16:58] LABS: Glucose,Whole Blood 107 mg/dL (70-110)
[2023-07-06] MEDS: RIVAROXABAN 15 MG TAB PO SCH (18:07)
[2023-07-06] MEDS: ACETAMINOPHEN TAB 325 MG TAB PO PRN (18:08)
[2023-07-06] MEDS: ATORVASTATIN 20 MG TAB PO SCH (20:25)
[2023-07-06] MEDS: MONTELUKAST 10 MG TAB PO SCH (20:25)
[2023-07-06] MEDS: traZODone HCL 50 MG TAB PO PRN (20:27)
[2023-07-06] MEDS: METOPROLOL TARTRATE 25 MG TAB PO SCH (20:28)
[2023-07-06 21:54] LABS: Glucose,Whole Blood 118 mg/dL (70-110)
[2023-07-06] MEDS: AMMONIUM LACTATE 12% LOTION 225 GM BTL TOPICAL SCH (22:38)
--- NOTE | 2023-07-06 23:08 | P.CONS ---
History of Present Illness - Reason for Consult Consult date: 07/06/23 - History of Present Illness Patient is a 72-year-old male with a past medical history significant for hypertension hyperlipidemia osteoarthritis pneumonia patient presenting to the ER last evening for evaluation of change in mental status patient apparently did have bilateral lower extremity wound currently being treated in the outpatient setting by his primary care physician patient mentioned that had been using some sort of wraps to keep the swelling down however the patient did have worsening of the wound especially to the left lower extremity patient may complaining of pain to the leg to be more of a sharp in nature 67 noted no radiation with associated swelling and redness but no foul-smelling drainage patient on presentation to the hospital was afebrile and no fever has been recorded subsequently did have normal white count creatinine was normal liver exams are normal urine was negative urine drug screen was negative left leg culture has been obtained CT of the brain was negative for any bleed x-rays did not show any bony changes patient was admitted to the hospital by the lower extremity wound and cellulitis patient was started on vancomycin infectious disease was consulted for further management of antibiotic therapy Past Medical History Past Medical History: Asthma, Chest Pain / Angina, GERD/Reflux, Hyperlipidemia, Hypertension, Osteoarthritis (OA), Pneumonia, Sleep Apnea/CPAP/BIPAP Additional Past Medical History / Comment(s): uses oxygen at night 2L, gout, in wheelchair or walker due to pain in left leg, poor circulation in legs(takes coumadin for) History of Any Multi-Drug Resistant Organisms: None Reported Past Surgical History: Orthopedic Surgery, Tonsillectomy Additional Past Surgical History / Comment(s): LEFT WRIST ORIF, LEFT KNEE REPLACEMENT, bilateral cataract surgery Past Anesthesia/Blood Transfusion Reactions: No Reported Reaction Additional Past Anesthesia/Blood Transfusion Reaction / Comm: . Past Psychological History: No Psychological Hx Reported, Depression Smoking Status: Former smoker Past Alcohol Use History: None Reported Past Drug Use History: None Reported - Past Family History Mother Family Medical History: Congestive Heart Failure (CHF), Osteoarthritis (OA) Father Additional Family Medical History / Comment(s): FROM [place] Brother(s) Family Medical History: Cancer Additional Family Medical History / Comment(s): . Sister(s) Family Medical History: Deep Vein Thrombosis (DVT) Medications and Allergies Home Medications Medication Instructions Recorded Confirmed Type Metoprolol Tartrate 25 mg PO BID 11/02/14 07/05/23 History allopurinoL [Zyloprim] 200 mg PO DAILY 11/02/14 07/05/23 History Montelukast [Singulair] 10 mg PO HS #30 tab 11/07/14 07/05/23 Rx Sertraline [Zoloft] 100 mg PO DAILY 04/04/17 07/05/23 History Atorvastatin [Lipitor] 20 mg PO HS 07/14/19 07/05/23 History Spironolactone [Aldactone] 25 mg PO DAILY 07/14/19 07/05/23 History Tamsulosin [Flomax] 0.4 mg PO DAILY 07/14/19 07/05/23 History Ipratropium-Albuterol Nebulize 3 ml INHALATION RT-Q6H 08/19/19 07/05/23 History [Duoneb 0.5 mg-3 mg/3 ml Soln] Acetaminophen Tab [Tylenol] 500 mg PO Q6H PRN 03/26/23 07/05/23 History Cholecalciferol [Vitamin D3 (25 50 mcg PO DAILY 03/26/23 07/05/23 History Mcg = 1000 Iu)] Empagliflozin [Jardiance] 10 mg PO DAILY 03/26/23 07/05/23 History Pantoprazole [Protonix] 40 mg PO DAILY 03/26/23 07/05/23 History Potassium Chloride ER [K-Dur 20] 20 meq PO BID 03/26/23 07/05/23 History tadalafiL 5 mg PO DAILY PRN 03/26/23 07/05/23 History Baclofen [Lioresal] 10 mg PO BID PRN tab 03/31/23 07/05/23 Rx SILVER sulfADIAZINE Cream 1 applic TOPICAL DAILY each 03/31/23 07/05/23 Rx [Silvadene 1% Cream] Ammonium Lactate Lotion 1 applic TOPICAL BID 06/22/23 07/05/23 History [Lac-Hydrin 12% Lotion] Dapagliflozin Propanediol [Farxiga] 10 mg PO DAILY 06/22/23 07/05/23 History Semaglutide [Ozempic] 0.5 mg SQ Q7D 06/22/23 07/05/23 History traZODone HCL 150 mg PO HS PRN 06/22/23 07/05/23 History Rivaroxaban [Xarelto] 15 mg PO W/SUPPER #30 tab 06/25/23 07/05/23 Rx Cephalexin [Keflex] 500 mg PO DIRECTED 07/05/23 07/05/23 History Furosemide [Lasix] 60 mg PO DIRECTED 07/05/23 07/05/23 History Furosemide [Lasix] 80 mg PO DIRECTED 07/05/23 07/05/23 History predniSONE See Taper PO DIRECTED 07/05/23 07/05/23 History Allergies Allergy/AdvReac Type Severity Reaction Status Date / Time No Known Allergies Allergy Verified 07/05/23 21:28 Physical Exam Vitals: Vital Signs Temp Pulse Pulse Resp BP BP Pulse Ox 07/06/23 11:51 80 07/06/23 11:40 78 07/06/23 07:52 98.1 F 90 20 121/70 96 07/06/23 05:00 74 20 105/60 95 07/06/23 00:39 82 18 112/62 95 07/05/23 22:28 96 18 108/62 94 L 07/05/23 19:43 97.6 F 128 H 18 112/65 93 L Intake and Output 07/06/23 07/06/23 07/06/23 06:59 14:59 22:59 Output Total 200 Balance -200 Output: Urine 200 Other: Weight 113.398 kg Results CBC & Chem 7: 07/07/23 07:46 07/07/23 07:46 Labs: Abnormal Lab Results - Last 24 Hours (Table) 07/05/23 07/05/23 07/05/23 Range/Units 20:29 20:29 20:29 RBC 4.25 L (4.30-5.90) m/uL Hgb 11.3 L (13.0-17.5) gm/dL Hct 34.3 L (39.0-53.0) % RDW 19.8 H (11.5-15.5) % Neutrophils # 8.1 H (1.3-7.7) k/uL Lymphocytes # (1.0-4.8) k/uL PT 14.0 H (9.0-12.0) sec INR 1.4 H (<1.2) APTT 33.8 H (22.0-30.0) sec Sodium 134 L (137-145) mmol/L Glucose (74-99) mg/dL POC Glucose (mg/dL) (70-110) mg/dL Calcium (8.4-10.2) mg/dL Total Bilirubin 2.0 H (0.2-1.3) mg/dL Alkaline Phosphatase 138 H (38-126) U/L Total Protein (6.3-8.2) g/dL Albumin (3.5-5.0) g/dL Urine Protein (Negative) 07/06/23 07/06/23 07/06/23 Range/Units 01:41 05:48 05:48 RBC 3.92 L (4.30-5.90) m/uL Hgb 10.5 L (13.0-17.5) gm/dL Hct 31.7 L (39.0-53.0) % RDW 19.6 H (11.5-15.5) % Neutrophils # 8.4 H (1.3-7.7) k/uL Lymphocytes # 0.9 L (1.0-4.8) k/uL PT (9.0-12.0) sec INR (<1.2) APTT (22.0-30.0) sec Sodium 136 L (137-145) mmol/L Glucose 106 H (74-99) mg/dL POC Glucose (mg/dL) (70-110) mg/dL Calcium 8.2 L (8.4-10.2) mg/dL Total Bilirubin 1.4 H (0.2-1.3) mg/dL Alkaline Phosphatase (38-126) U/L Total Protein 5.9 L (6.3-8.2) g/dL Albumin 3.0 L (3.5-5.0) g/dL Urine Protein Trace H (Negative) 07/06/23 Range/Units 11:53 RBC (4.30-5.90) m/uL Hgb (13.0-17.5) gm/dL Hct (39.0-53.0) % RDW (11.5-15.5) % Neutrophils # (1.3-7.7) k/uL Lymphocytes # (1.0-4.8) k/uL PT (9.0-12.0) sec INR (<1.2) APTT (22.0-30.0) sec Sodium (137-145) mmol/L Glucose (74-99) mg/dL POC Glucose (mg/dL) 116 H (70-110) mg/dL Calcium (8.4-10.2) mg/dL Total Bilirubin (0.2-1.3) mg/dL Alkaline Phosphatase (38-126) U/L Total Protein (6.3-8.2) g/dL Albumin (3.5-5.0) g/dL Urine Protein (Negative) Assessment and Plan Plan: 1patient with bilateral lower extremity superficial ulceration likely from ruptured blister in this patient who did have evidence of fluid overload likely venous stasis ulcer and concern for secondary cellulitis at this patient was in the hospital with mental status changes with evidence of cellulitis to bilateral lower extremity left greater than right likely from gram-positive skin kris failing outpatient treatment 2-local wound care with dry Aquacel silver dressing and mild compression dressing 3-continue with vancomycin watching kidney function closely while waiting for the culture to finalize We will follow on clinical condition and cultures to further adjust medication if needed Thank you for this consultation we will follow the patient along with you Dictation was produced using [employer] dictation software. please excuse any grammatical, word or spelling errors. Time with Patient: Greater than 30
[2023-07-07] MEDS: IPRATROPIUM-ALBUTEROL 3 ML NEB INHALATION SCH ×4 (00:47→21:17)
[2023-07-07] MEDS: ACETAMINOPHEN TAB 325 MG TAB PO PRN (04:50)
[2023-07-07 05:53] LABS: Glucose,Whole Blood 115 mg/dL (70-110)
[2023-07-07] MEDS: INSULIN ASPART (NovoLOG) 100 UNIT/ML VIAL SQ SCH ×4 (05:59→22:07)
[2023-07-07] MEDS: FUROSEMIDE 10 MG/ML 4 ML VIAL IV SCH ×2 (08:28→20:37)
[2023-07-07] MEDS ORDERED: DAPAGLIFLOZIN PROPANEDIOL 10 MG TABLET PO SCH (09:00)
[2023-07-07] MEDS ORDERED: NON FORMULARY DRUG (Empagliflozin [Jardiance] 10 MG Tablet) PO SCH (09:00)
[2023-07-07 09:06] LABS: African American GFR (CKD) 85 (>60 ml/min/1.73 sqM); Anion Gap 8 mmol/L; Blood Urea Nitrogen 10 mg/dL (9-20); Calcium 8.1 mg/dL (8.4-10.2); Carbon Dioxide 23 mmol/L (22-30); Chloride 103 mmol/L (98-107); Glucose 96 mg/dL (74-99); Magnesium 1.6 mg/dL (1.6-2.3); Non-African American GFR(CKD) 73 (>60 ml/min/1.73 sqM); Potassium 3.7 mmol/L (3.5-5.1); Sodium 134 mmol/L (137-145)
[2023-07-07] MEDS: allopurinoL 100 MG TAB PO SCH (10:26)
[2023-07-07] MEDS: PANTOPRAZOLE 40 MG TABLET PO SCH (10:26)
[2023-07-07] MEDS: TAMSULOSIN 0.4 MG CAP.ER.24H PO SCH (10:26)
[2023-07-07] MEDS: SERTRALINE 100 MG TAB PO SCH (10:26)
[2023-07-07] MEDS: METOPROLOL TARTRATE 25 MG TAB PO SCH ×2 (10:26→20:37)
[2023-07-07] MEDS: SPIRONOLACTONE 25 MG TAB PO SCH (10:27)
[2023-07-07] MEDS: RIVAROXABAN 15 MG TAB PO SCH (10:27)
[2023-07-07] MEDS: AMMONIUM LACTATE 12% LOTION 225 GM BTL TOPICAL SCH ×2 (10:28→20:39)
[2023-07-07 11:01] LABS: HCT 31.2 % (39.6-50.0); HGB 9.3 d/dL (13.0-17.0); MCHC 29.8 d/dL (32.0-37.0); MCV 83.9 FL (80.0-97.0); Mean Platelet Volume 9.1 FL (9.5-12.2); NRBC Per 100 WBC 0 X 10*3/uL (0.00-0.01); Platelet Count 116 X 10*3/uL (140-440); RBC 3.72 X 10*6/uL (4.40-5.60); RDW 21.1 % (11.5-14.5); WBC 8.72 X 10*3/uL (4.50-10.00)
[2023-07-07 11:33] LABS: Glucose,Whole Blood 146 mg/dL (70-110)
--- NOTE | 2023-07-07 13:34 | P.PN ---
Subjective Progress Note Date: 07/07/23 HISTORY OF PRESENT ILLNESS: This is a 72-year-old male with a previous medical history significant for hypertension and hypertensive cardiovascular disease, hyperlipidemia, obesity with obstructive sleep apnea and obesity hypoventilation syndrome, chronic diastolic heart failure, asthma, hypothyroidism, anxiety and depressive disorder, peripheral neuropathy. Patient has had a number of hospitalizations for acute on chronic diastolic heart failure with lower extremity venous stasis ulcers and cellulitis. Most recently he was discharged on 723 and adamantly refused to go to subacute rehab although this was recommended by therapy. Patient presented with ulcer to the right lower extremity and he had been started on Keflex on Friday but did not seem to have any improvement and failed outpatient treatment along with mental status changes. Patient was admitted to the [facility] floor has been seen in consultation by Dr. Valle with recommendations for IV vancomycin and Aquasol silver dressing and compression dressing to bilateral lower extremities. Discussed in detail with the patient his need to go to subacute rehab versus returning home. Consults with PT and OT added. REVIEW OF SYSTEMS: Constitutional: No documented fever, no chills, no night sweats. No weight change. Chronic weakness, chronic fatigue or lethargy. No daytime sleepiness. HEENT: No headache. No blurred vision or double vision, no loss of vision. No loss of Hearing, no ringing in the ears, no dizziness. No nasal drainage or congestion. No epistaxis. No sore throat. Lungs: No shortness of breath, no cough, no sputum production. No wheezing. Reports dyspnea with activity. Cardiovascular: No chest pain, chronic lower extremity edema. No palpitations. No paroxysmal nocturnal dyspnea. No orthopnea. No lightheadedness or dizziness. No syncopal episodes. Abdominal: Reports abdominal pain. No nausea, vomiting. No diarrhea. No constipation. No bloody or tarry stools reports loss of appetite. Genitourinary: No dysuria, increased frequency, urgency. No urinary retention. Musculoskeletal: No myalgias. Chronic muscle weakness, chronic gait dysfunction, no frequent falls. No back pain. No neck pain. Integumentary: Noted bilateral lower extremity wounds, no lesions. No rash or pruritus. No unusual bruising. No change in hair or nails. Neurologic: No aphasia. No facial droop. Noted change in mentation. No head injury. No headache. No paralysis. No paresthesia. Psychiatric: No depression. No anxiety. No mood swings. Endocrine: No abnormal blood sugars. No weight change. PHYSICAL EXAMINATION: General: 72-year-old male lying down in bed in no distress HEENT: Head is atraumatic, normocephalic, pupils were equal round reactive to light and recommendation, extraocular muscle movement were intact, sclera nonicteric, conjunctivae were pale, mucous membranes of the mouth are somewhat dry. Neck: Supple, no JVP, normal carotid upstroke bilaterally, no lymphadenopathy. Chest: Decreased breath sounds at the bases, few rhonchi, no expiratory wheezes, no chest wall tenderness, no intercostal retractions. Heart: First heart sound is normal, second heart sounds normal, there is systolic ejection murmur 2/6 located in the left sternal border. Abdomen: Soft, nontender, nondistended, positive bowel sounds. Extremities: There is +1 edema, erythema DP +2 bilaterally. Neurologic examination: Patient is awake alert and oriented X 3, cranial nerves II-12 appear grossly intact, muscle power were 5 out of 5 in upper extremities and 3 out of 5 in bilateral lower extremities, deep tendon reflexes normal bilaterally. ASSESSMENT AND PLAN: 1. Chronic hypoxemic respiratory failure due to acute on chronic diastolic heart failure. Continue IV Lasix 40 mg every 12 hours, monitor input and output and daily weight, continue spironolactone 25 mg orally once every day, continue patient on Farxiga 10 mg orally once every day, metoprolol 25 mg orally twice every day. 2. Bilateral lower extremity venous stasis ulcer and cellulitis . Continue leg elevation and local wound care with [facility] per Dr. Valle. Continue IV vancomycin. 3. Metabolic encephalopathy secondary to sepsis secondary to venous stasis ulcer, cellulitis. Continue treatment as above. 4. COPD/moderate persistent asthma and not in exacerbation with chronic hypoxemic respiratory failure continue oxygen support continue DuoNeb 3 mg nebulization 4 times every day. 5. Paroxysmal atrial fibrillation Continue patient on metoprolol 25 mg orally twice every day, continue patient on Xarelto 15 mg orally once every day 6. Hypertension and hypertensive cardiovascular disease. Continue patient on metoprolol 25 mg orally twice every day, monitor the patient blood pressure very closely. 7. Hyperlipidemia. Continue patient on atorvastatin 20 mg orally once every day, monitor lipid panel, keep LDL 55-70. 8. Enlarged prostate. Continue patient on tamsulosin 0.4 mg orally once every day. 9. Generalized anxiety disorder. Continue patient on sertraline 100 mg orally once every day. 10. Neuropathy. Continue patient on gabapentin 300 mg at bedtime. 11. DVT prophylaxis. Continue Xarelto 15 mg po daily and discontinue coumadin. 12. Discharge planning: subacute rehab. There is concern about safety at home. Impression and plan of care have been directed as dictated by the signing physician. Concepción Perkins nurse practitioner acting as scribe for signing physician. Objective - Vital Signs Vital signs: Vital Signs Temp 98.0 F 07/07/23 07:53 Pulse 77 07/07/23 10:25 Resp 23 07/07/23 08:00 BP 139/69 07/07/23 10:25 Pulse Ox 95 07/07/23 08:24 FiO2 Intake & Output 07/06/23 07/07/23 07/07/23 18:59 06:59 18:59 Intake Total 500 Output Total 1200 1000 Balance -1200 500 -1000 Weight 124.5 kg Intake: Oral 500 Output: Urine 1200 1000 Other: # Voids 1 # Bowel Movements 1 1 - Labs CBC & Chem 7: 07/07/23 07:46 07/07/23 07:46 Labs: Abnormal Lab Results - Last 24 Hours (Table) 07/06/23 07/07/23 07/07/23 Range/Units 21:53 05:51 07:46 RBC (4.40-5.60) X 10*6/uL Hgb (13.0-17.0) d/dL Hct (39.6-50.0) % MCH (27.0-32.0) pg MCHC (32.0-37.0) d/dL RDW (11.5-14.5) % Plt Count (140-440) X 10*3/uL MPV (9.5-12.2) FL Sodium 134 L (137-145) mmol/L POC Glucose (mg/dL) 118 H 115 H (70-110) mg/dL Calcium 8.1 L (8.4-10.2) mg/dL 07/07/23 07/07/23 Range/Units 07:46 11:32 RBC 3.72 L (4.40-5.60) X 10*6/uL Hgb 9.3 L (13.0-17.0) d/dL Hct 31.2 L (39.6-50.0) % MCH 25.0 L (27.0-32.0) pg MCHC 29.8 L (32.0-37.0) d/dL RDW 21.1 H (11.5-14.5) % Plt Count 116 L (140-440) X 10*3/uL MPV 9.1 L (9.5-12.2) FL Sodium (137-145) mmol/L POC Glucose (mg/dL) 146 H (70-110) mg/dL Calcium (8.4-10.2) mg/dL Microbiology - Last 24 Hours (Table) 07/05/23 20:20 Blood Culture - Preliminary Blood 07/05/23 20:35 Blood Culture - Preliminary Blood 07/05/23 20:32 Gram Stain - Preliminary Leg - Left Wound Culture - Preliminary Gram Neg Bacilli
[2023-07-07] MEDS: BACLOFEN 10 MG TAB PO PRN (13:57)
[2023-07-07] MEDS: ACETAMINOPHEN TAB 500 MG TAB PO PRN (13:57)
[2023-07-07] MEDS: VANCOMYCIN 1,750 MG in SODIUM CHLORIDE 0.9% 500 ML 500 ML IVPB SCH (14:29)
[2023-07-07 16:24] LABS: Glucose,Whole Blood 156 mg/dL (70-110)
[2023-07-07] MEDS: MONTELUKAST 10 MG TAB PO SCH (20:37)
[2023-07-07] MEDS: ATORVASTATIN 20 MG TAB PO SCH (20:37)
[2023-07-07] MEDS: traZODone HCL 50 MG TAB PO PRN (20:42)
[2023-07-07 20:59] LABS: Glucose,Whole Blood 112 mg/dL (70-110)
[2023-07-08] MEDS: ACETAMINOPHEN TAB 500 MG TAB PO PRN ×2 (02:04→21:42)
[2023-07-08] MEDS: IPRATROPIUM-ALBUTEROL 3 ML NEB INHALATION SCH ×4 (03:06→20:58)
[2023-07-08 05:51] LABS: Glucose,Whole Blood 104 mg/dL (70-110)
[2023-07-08] MEDS: INSULIN ASPART (NovoLOG) 100 UNIT/ML VIAL SQ SCH ×4 (06:10→21:45)
[2023-07-08] MEDS: FUROSEMIDE 10 MG/ML 4 ML VIAL IV SCH ×2 (08:38→21:42)
[2023-07-08] MEDS: AMMONIUM LACTATE 12% LOTION 225 GM BTL TOPICAL SCH ×2 (08:39→21:45)
[2023-07-08] MEDS: allopurinoL 100 MG TAB PO SCH (09:08)
[2023-07-08] MEDS: SERTRALINE 100 MG TAB PO SCH (09:08)
[2023-07-08] MEDS: SPIRONOLACTONE 25 MG TAB PO SCH (09:09)
[2023-07-08] MEDS: TAMSULOSIN 0.4 MG CAP.ER.24H PO SCH (09:09)
[2023-07-08] MEDS: DAPAGLIFLOZIN PROPANEDIOL 10 MG TABLET PO SCH (09:09)
[2023-07-08] MEDS: PANTOPRAZOLE 40 MG TABLET PO SCH (09:09)
[2023-07-08] MEDS: METOPROLOL TARTRATE 25 MG TAB PO SCH ×2 (09:09→21:44)
[2023-07-08 11:33] LABS: Glucose,Whole Blood 113 mg/dL (70-110)
[2023-07-08] MEDS ORDERED: VANCOMYCIN TROUGH DUE 1 EACH MISC MISCELLANE ONE (13:00)
--- NOTE | 2023-07-08 13:43 | P.PN ---
Subjective Progress Note Date: 07/08/23 HISTORY OF PRESENT ILLNESS: This is a 72-year-old male with a previous medical history significant for hypertension and hypertensive cardiovascular disease, hyperlipidemia, obesity with obstructive sleep apnea and obesity hypoventilation syndrome, chronic diastolic heart failure, asthma, hypothyroidism, anxiety and depressive disorder, peripheral neuropathy. Patient has had a number of hospitalizations for acute on chronic diastolic heart failure with lower extremity venous stasis ulcers and cellulitis. Most recently he was discharged on 723 and adamantly refused to go to subacute rehab although this was recommended by therapy. Patient presented with ulcer to the right lower extremity and he had been started on Keflex on Friday but did not seem to have any improvement and failed outpatient treatment along with mental status changes. Patient was admitted to the [facility] floor has been seen in consultation by Dr. Valle with recommendations for IV vancomycin and Aquasol silver dressing and compression dressing to bilateral lower extremities. Discussed in detail with the patient his need to go to subacute rehab versus returning home. Consults with PT and OT added. 07/08: Patient is seen today in follow-up. Patient has been afebrile, heart rate in the 60s and 70s, blood pressure 117/67, pulse ox 95% on 2 L nasal cannula. Capillary blood glucose running between 104 156. Wound culture has been finalized with Proteus mirabilis only resistant to tetracycline. Patient is c urrently on IV Kefzol managed by Dr. Parsons. He has been evaluated by PT with recommendations for home with home care or subacute rehab. Patient is told case management social worker that he wishes only to go home and [facility] care has been set up. Plan is to monitor patient overnight and discharge home tomorrow. Repeat blood work ordered for tomorrow. REVIEW OF SYSTEMS: Constitutional: No documented fever, no chills, no night sweats. No weight change. Chronic weakness, chronic fatigue or lethargy. No daytime sleepiness. HEENT: No headache. No blurred vision or double vision, no loss of vision. No loss of Hearing, no ringing in the ears, no dizziness. No nasal drainage or congestion. No epistaxis. No sore throat. Lungs: No shortness of breath, no cough, no sputum production. No wheezing. Reports dyspnea with activity. Cardiovascular: No chest pain, chronic lower extremity edema. No palpitations. No paroxysmal nocturnal dyspnea. No orthopnea. No lightheadedness or dizziness. No syncopal episodes. Abdominal: Reports abdominal pain. No nausea, vomiting. No diarrhea. No con stipation. No bloody or tarry stools reports loss of appetite. Genitourinary: No dysuria, increased frequency, urgency. No urinary retention. Musculoskeletal: No myalgias. Chronic muscle weakness, chronic gait dysfunction, no frequent falls. No back pain. No neck pain. Integumentary: Noted bilateral lower extremity wounds, no lesions. No rash or pruritus. No unusual bruising. No change in hair or nails. Neurologic: No aphasia. No facial droop. Noted change in mentation. No head injury. No headache. No paralysis. No paresthesia. Psychiatric: No depression. No anxiety. No mood swings. Endocrine: No abnormal blood sugars. No weight change. PHYSICAL EXAMINATION: General: 72-year-old male lying down in bed in no distress HEENT: Head is atraumatic, normocephalic, pupils were equal round reactive to light and recommendation, extraocular muscle movement were intact, sclera nonicteric, conjunctivae were pale, mucous membranes of the mouth are somewhat dry. Neck: Supple, no JVP, normal carotid upstroke bilaterally, no lymphadenopathy. Chest: Decreased breath sounds at the bases, few rhonchi, no expiratory wheezes, no chest wall tenderness, no intercostal retractions. Heart: First heart sound is normal, second heart sounds normal, there is systolic ejection murmur 2/6 located in the left sternal border. Abdomen: Soft, nontender, nondistended, positive bowel sounds. Extremities: There is +1 edema, erythema DP +2 bilaterally. Neurologic examination: Patient is awake alert and oriented X 3, cranial nerves II-12 appear grossly intact, muscle power were 5 out of 5 in upper extremities and 3 out of 5 in bilateral lower extremities, deep tendon reflexes normal bi laterally. ASSESSMENT AND PLAN: 1. Chronic hypoxemic respiratory failure due to acute on chronic diastolic heart failure. Continue IV Lasix 40 mg every 12 hours, monitor input and output and daily weight, continue spironolactone 25 mg orally once every day, continue patient on Farxiga 10 mg orally once every day, metoprolol 25 mg orally twice every day. 2. Bilateral lower extremity venous stasis ulcer and cellulitis . Continue leg elevation and local wound care with Aquacel Ag per Dr. Valle. Continue IV Kefzol. Consult with ID appreciated. 3. Metabolic encephalopathy secondary to sepsis secondary to venous stasis ulcer, cellulitis. Continue treatment as above. 4. COPD/moderate persistent asthma and not in exacerbation with chronic hypoxemic respiratory failure continue oxygen support continue DuoNeb 3 mg nebulization 4 times every day. 5. Paroxysmal atrial fibrillation Continue patient on metoprolol 25 mg orally twice every day, continue patient on Xarelto 15 mg orally once every day 6. Hypertension and hypertensive cardiovascular disease. Continue patient on metoprolol 25 mg orally twice every day, monitor the patient blood pressure very closely. 7. Hyperlipidemia. Continue patient on atorvastatin 20 mg orally once every day, monitor lipid panel, keep LDL 55-70. 8. Enlarged prostate. Continue patient on tamsulosin 0.4 mg orally once every day. 9. Generalized anxiety disorder. Continue patient on sertraline 100 mg orally once every day. 10. Neuropathy. Continue patient on gabapentin 300 mg at bedtime. 11. DVT prophylaxis. Continue Xarelto 15 mg po daily and discontinue coumadin. 12. Discharge planning: Home with home care on Friday Impression and plan of care have been directed as dictated by the signing physician. Concepción Perkins nurse practitioner acting as scribe for signing physician. Objective - Vital Signs Vital signs: Vital Signs Temp 97.8 F 07/08/23 08:00 Pulse 83 07/08/23 12:25 Resp 18 07/08/23 08:00 BP 117/67 07/08/23 08:00 Pulse Ox 95 07/08/23 08:30 FiO2 Intake & Output 07/07/23 07/08/23 07/08/23 18:59 06:59 18:59 Intake Total 120 200 Output Total 1600 1100 Balance -1480 -1100 200 Weight 125.5 kg Intake: Oral 120 200 Output: Urine 1600 1100 Other: Voiding Method External Catheter # Bowel Movements 1 - Labs CBC & Chem 7: 07/07/23 07:46 07/07/23 07:46 Labs: Abnormal Lab Results - Last 24 Hours (Table) 07/07/23 07/07/23 07/08/23 Range/Units 16:23 20:58 11:24 POC Glucose (mg/dL) 156 H 112 H 113 H (70-110) mg/dL Microbiology - Last 24 Hours (Table) 07/05/23 20:35 Blood Culture - Preliminary Blood 07/05/23 20:32 Gram Stain - Final Leg - Left Wound Culture - Final Proteus mirabilis 07/05/23 20:20 Blood Culture - Preliminary Blood
[2023-07-08 16:30] LABS: Glucose,Whole Blood 123 mg/dL (70-110)
[2023-07-08] MEDS: RIVAROXABAN 15 MG TAB PO SCH (16:40)
--- NOTE | 2023-07-08 17:31 | P.PN ---
Subjective Progress Note Date: 07/07/23 Principal diagnosis: Bilateral lower extremity wound and cellulitis Patient is a 72-year-old male with a past medical history significant for hypertension hyperlipidemia osteoarthritis pneumonia patient presenting to the ER last evening for evaluation of change in mental status patient apparently did have bilateral lower extremity wound and evidence of redness to the legs concerning for cellulitis. On today's evaluation that is 07/07/2023, the patient is afebrile, the patient is breathing comfortably on 2 L nasal cannula oxygen denies any chest pain shortness of breath or cough no abdominal pain or worsening pain to bilateral lower extremity Patient did have a white count of 8.72 hemoglobin is 9.3 creatinine 1.02 local cultures are currently pending Objective - Vital Signs Vital signs: Vital Signs Temp 98.0 F 07/07/23 07:53 Pulse 77 07/07/23 10:25 Resp 23 07/07/23 08:00 BP 139/69 07/07/23 10:25 Pulse Ox 95 07/07/23 08:24 FiO2 Intake & Output 07/06/23 07/07/23 07/07/23 18:59 06:59 18:59 Intake Total 500 Output Total 1200 1000 Balance -1200 500 -1000 Weight 124.5 kg Intake: Oral 500 Output: Urine 1200 1000 Other: # Voids 1 # Bowel Movements 1 1 - Exam An elderly male up in the chair in no distress Unlabored breathing Bilateral lower extremity wounds are currently wrapped - Labs CBC & Chem 7: 07/07/23 07:46 07/07/23 07:46 Labs: Abnormal Lab Results - Last 24 Hours (Table) 07/06/23 07/07/23 07/07/23 Range/Units 21:53 05:51 07:46 RBC (4.40-5.60) X 10*6/uL Hgb (13.0-17.0) d/dL Hct (39.6-50.0) % MCH (27.0-32.0) pg MCHC (32.0-37.0) d/dL RDW (11.5-14.5) % Plt Count (140-440) X 10*3/uL MPV (9.5-12.2) FL Sodium 134 L (137-145) mmol/L POC Glucose (mg/dL) 118 H 115 H (70-110) mg/dL Calcium 8.1 L (8.4-10.2) mg/dL 07/07/23 07/07/23 Range/Units 07:46 11:32 RBC 3.72 L (4.40-5.60) X 10*6/uL Hgb 9.3 L (13.0-17.0) d/dL Hct 31.2 L (39.6-50.0) % MCH 25.0 L (27.0-32.0) pg MCHC 29.8 L (32.0-37.0) d/dL RDW 21.1 H (11.5-14.5) % Plt Count 116 L (140-440) X 10*3/uL MPV 9.1 L (9.5-12.2) FL Sodium (137-145) mmol/L POC Glucose (mg/dL) 146 H (70-110) mg/dL Calcium (8.4-10.2) mg/dL Microbiology - Last 24 Hours (Table) 07/05/23 20:20 Blood Culture - Preliminary Blood 07/05/23 20:35 Blood Culture - Preliminary Blood 07/05/23 20:32 Gram Stain - Preliminary Leg - Left Wound Culture - Preliminary Gram Neg Bacilli Assessment and Plan (1) Open wound of both legs with complication Current Visit: Yes Status: Acute Code(s): S81.801A - UNSPECIFIED OPEN WOUND, RIGHT LOWER LEG, INITIAL ENCOUNTER; S81.802A - UNSPECIFIED OPEN WOUND, LEFT LOWER LEG, INITIAL ENCOUNTER SNOMED Code(s): 14948798 (2) Bilateral lower leg cellulitis Current Visit: Yes Status: Acute Code(s): L03.116 - CELLULITIS OF LEFT LOWER LIMB; L03.115 - CELLULITIS OF RIGHT LOWER LIMB SNOMED Code(s): 799509462 Plan: 1patient with bilateral lower extremity superficial ulceration likely from ruptured blister in this patient who did have evidence of fluid overload likely venous stasis ulcer and concern for secondary cellulitis at this patient was in the hospital with mental status changes with evidence of cellulitis to bilateral lower extremity left greater than right likely from gram-positive skin kris failing outpatient treatment 2-local wound care to continue with dry Aquacel silver dressing and mild compression dressing 3-patient to continue with vancomycin watching kidney function closely while waiting for the culture to finalize Dictation was produced using dragon dictation software. please excuse any grammatical, word or spelling errors. Time with Patient: Less than 30
--- NOTE | 2023-07-08 17:39 | P.PN ---
Subjective Progress Note Date: 07/08/23 Principal diagnosis: Bilateral lower extremity wound and cellulitis Patient is a 72-year-old male with a past medical history significant for hypertension hyperlipidemia osteoarthritis pneumonia patient presenting to the ER last evening for evaluation of change in mental status patient apparently did have bilateral lower extremity wound and evidence of redness to the legs concerning for cellulitis. On today's evaluation that is 07/08/2023, the patient remains to be afebrile, the patient is breathing comfortably on 2 L nasal cannula oxygen, the patient denies any chest pain shortness of breath or cough no abdominal pain or worsening pain to bilateral lower extremity, complaining of mostly lower back pain Patient did have a white count of 8.72 hemoglobin is 9.3 creatinine 1.02 as of yesterday no CBC was done today, local cultures are currently growing Proteus that is sensitive pathogen Objective - Vital Signs Vital signs: Vital Signs Temp 97.8 F 07/08/23 08:00 Pulse 83 07/08/23 12:25 Resp 18 07/08/23 08:00 BP 117/67 07/08/23 08:00 Pulse Ox 95 07/08/23 08:30 FiO2 Intake & Output 07/07/23 07/08/23 07/08/23 18:59 06:59 18:59 Intake Total 120 200 Output Total 1600 1100 Balance -1480 -1100 200 Weight 125.5 kg Intake: Oral 120 200 Output: Urine 1600 1100 Other: Voiding Method External Catheter # Bowel Movements 1 - Exam An elderly male up in the chair in no distress Unlabored breathing Bilateral lower extremity wounds are currently wrapped - Labs CBC & Chem 7: 07/07/23 07:46 07/07/23 07:46 Labs: Abnormal Lab Results - Last 24 Hours (Table) 07/07/23 07/07/23 07/08/23 Range/Units 16:23 20:58 11:24 POC Glucose (mg/dL) 156 H 112 H 113 H (70-110) mg/dL Microbiology - Last 24 Hours (Table) 07/05/23 20:20 Blood Culture - Preliminary Blood 07/05/23 20:35 Blood Culture - Preliminary Blood 07/05/23 20:32 Gram Stain - Final Leg - Left Wound Culture - Final Proteus mirabilis Assessment and Plan (1) Bilateral lower leg cellulitis Current Visit: Yes Status: Acute Code(s): L03.116 - CELLULITIS OF LEFT LOWER LIMB; L03.115 - CELLULITIS OF RIGHT LOWER LIMB SNOMED Code(s): 952855849 (2) Open wound of both legs with complication Current Visit: Yes Status: Acute Code(s): S81.801A - UNSPECIFIED OPEN WOUND, RIGHT LOWER LEG, INITIAL ENCOUNTER; S81.802A - UNSPECIFIED OPEN WOUND, LEFT LOWER LEG, INITIAL ENCOUNTER SNOMED Code(s): 27205874 Plan: 1patient with bilateral lower extremity superficial ulceration likely from ruptured blister in this patient who did have evidence of fluid overload likely venous stasis ulcer and concern for secondary cellulitis at this patient was in the hospital with mental status changes with evidence of cellulitis to bilateral lower extremity left greater than right likely from gram-positive skin kris failing outpatient treatment 2-local wound care to continue with dry Aquacel silver dressing and mild co mpression dressing 3-patient local cultures did grew Proteus that is sensitive pathogen we will discontinue vancomycin and start the patient cefazolin 2 g every 8 hours Dictation was produced using [employer] dictation software. please excuse any grammatical, word or spelling errors. Time with Patient: Less than 30
[2023-07-08 21:37] LABS: Glucose,Whole Blood 120 mg/dL (70-110)
[2023-07-08] MEDS: traZODone HCL 50 MG TAB PO PRN (21:45)
[2023-07-08] MEDS: MONTELUKAST 10 MG TAB PO SCH (21:45)
[2023-07-08] MEDS: ATORVASTATIN 20 MG TAB PO SCH (21:50)
[2023-07-08 23:01] VITALS: RESP 18
[2023-07-09] MEDS: IPRATROPIUM-ALBUTEROL 3 ML NEB INHALATION SCH ×2 (00:09→07:13)
[2023-07-09] MEDS: ACETAMINOPHEN TAB 325 MG TAB PO PRN (03:02)
[2023-07-09 05:43] LABS: Glucose,Whole Blood 180 mg/dL (70-110)
[2023-07-09] MEDS: INSULIN ASPART (NovoLOG) 100 UNIT/ML VIAL SQ SCH ×2 (07:02→11:48)
[2023-07-09 07:22] LABS: ALT 18 U/L (4-49); AST 24 U/L (17-59); African American GFR (CKD) 59 (>60 ml/min/1.73 sqM); Albumin 2.9 g/dL (3.5-5.0); Albumin/Globulin Ratio 1.1; Alkaline Phosphatase 101 U/L (38-126); Anion Gap 8 mmol/L; Blood Urea Nitrogen 17 mg/dL (9-20); Calcium 8.1 mg/dL (8.4-10.2); Carbon Dioxide 25 mmol/L (22-30); Chloride 102 mmol/L (98-107); Globulin 2.7 g/dL; Glucose 98 mg/dL (74-99); Non-African American GFR(CKD) 51 (>60 ml/min/1.73 sqM); Potassium 3.4 mmol/L (3.5-5.1); Sodium 135 mmol/L (137-145); Total Bilirubin 0.7 mg/dL (0.2-1.3); Total Protein 5.6 g/dL (6.3-8.2)
[2023-07-09 07:28] VITALS: BP 109/65; PULSE 72; TEMP 97.3
[2023-07-09] MEDS ORDERED: POTASSIUM CHLORIDE ER 20 MEQ TAB.ER PO STA (07:45)
--- NOTE | 2023-07-09 07:45 | P.DS ---
Providers Date of admission: 07/05/23 22:44 Expected date of discharge: 07/09/23 Attending physician: Alison Leon Consults: 07/05/23 22:42 Consult Physician Urgent Consulting Provider: Colleen Valle Consult Reason/Comments: Bilateral lower extremity cellulitis Do you want consulting provider notified?: Yes Primary care physician: Alison Leon Hospital Course: HISTORY OF PRESENT ILLNESS: This is a 72-year-old male with a previous medical history significant for hypertension and hypertensive cardiovascular disease, hyperlipidemia, obesity with obstructive sleep apnea and obesity hypoventilation syndrome, chronic diastolic heart failure, asthma, hypothyroidism, anxiety and depressive disorder, peripheral neuropathy. Patient has had a number of hospitalizations f or acute on chronic diastolic heart failure with lower extremity venous stasis ulcers and cellulitis. Most recently he was discharged on 72 and adamantly refused to go to subacute rehab although this was recommended by therapy. Patient presented with ulcer to the right lower extremity and he had been started on Keflex on Friday but did not seem to have any improvement and failed outpatient treatment along with mental status changes. Patient was admitted to the [facility] floor has been seen in consultation by Dr. Valle with recommendations for IV vancomycin and Aquasol silver dressing and compression dressing to bilateral lower extremities. Discussed in detail with the patient his need to go to subacute rehab versus returning home. Consults with PT and OT added. 07/08: Patient is seen today in follow-up. Patient has been afebrile, heart rate in the 60s and 70s, blood pressure 117/67, pulse ox 95% on 2 L nasal cannula. Capillary blood glucose running between 104 156. Wound culture has been finalized with Proteus mirabilis only resistant to tetracycline. Patient is currently on IV Kefzol managed by Dr. Parsons. He has been evaluated by PT with recommendations for home with home care or subacute rehab. Patient is told case coordinator that he wishes only to go home and [facility] home care has been set up. Plan is to monitor patient overnight and discharge home tomorrow. Repeat blood work ordered for tomorrow. 07/09: Patient is seen today in follow-up. He has no new concerns. Lower extremity wounds and edema continued to slowly improve. He has been seen by Dr. Parsons with recommendations for Keflex and he has sent a new prescription for the patient. Patient transitioned to oral Lasix for home. Patient remains afebrile, heart rate 72, blood pressure 109/65, pulse ox 92% on 2 L nasal cannula. Repeat blood work reveals WBC 7.9, hemoglobin 8.9, platelet count 128. Sodium 135, potassium 3.4 and replaced, BUN 17 creatinine 1.37. DISCHARGE DIAGNOSES: 1. Chronic hypoxemic respiratory failure due to acute on chronic diastolic heart failure. 2. Bilateral lower extremity venous stasis ulcer and cellulitis. 3. Metabolic encephalopathy secondary to sepsis secondary to venous stasis ulcer, cellulitis. 4. COPD/moderate persistent asthma and not in exacerbation with chronic hypoxemic respiratory failure 5. Paroxysmal atrial fibrillation 6. Hypertension and hypertensive cardiovascular disease. 7. Hyperlipidemia. 8. Enlarged prostate. 9. Generalized anxiety disorder. 10. Neuropathy. 11. Pancytopenia Discharge planning: Home with home care on Friday Greater than 35 minutes was utilized and coordinating patient's discharge. Impression and plan of care have been directed as dictated by the signing physician. Concepción Perkins nurse practitioner acting as scribe for signing physician. Patient Condition at Discharge: Stable Plan - Discharge Summary Discharge Rx Participant: Yes New Discharge Prescriptions: New Cephalexin [Keflex] 500 mg PO Q8HR 10 Days #30 cap Dapagliflozin Propanediol [Farxiga] 5 mg PO DAILY #30 tablet Continue Metoprolol Tartrate 25 mg PO BID allopurinoL [Zyloprim] 200 mg PO DAILY Montelukast [Singulair] 10 mg PO HS #30 tab Sertraline [Zoloft] 100 mg PO DAILY Spironolactone [Aldactone] 25 mg PO DAILY Atorvastatin [Lipitor] 20 mg PO HS Tamsulosin [Flomax] 0.4 mg PO DAILY Ipratropium-Albuterol Nebulize [Duoneb 0.5 mg-3 mg/3 ml Soln] 3 ml INHALATION RT-Q6H tadalafiL 5 mg PO DAILY PRN PRN Reason: E.D. Baclofen [Lioresal] 10 mg PO BID PRN tab PRN Reason: Muscle Spasm Ammonium Lactate Lotion [Lac-Hydrin 12% Lotion] 1 applic TOPICAL BID traZODone HCL 150 mg PO HS PRN PRN Reason: Insomnia Rivaroxaban [Xarelto] 15 mg PO W/SUPPER #30 tab Furosemide [Lasix] 80 mg PO DAILY #0 Acetaminophen Tab [Tylenol] 500 mg PO Q6H PRN PRN Reason: Pain Cholecalciferol [Vitamin D3 (25 Mcg = 1000 Iu)] 50 mcg PO DAILY Pantoprazole [Protonix] 40 mg PO DAILY Potassium Chloride ER [K-Dur 20] 20 meq PO BID SILVER sulfADIAZINE Cream [Silvadene 1% Cream] 1 applic TOPICAL DAILY each Semaglutide [Ozempic] 0.5 mg SQ Q7D Discontinued Empagliflozin [Jardiance] 10 mg PO DAILY Dapagliflozin Propanediol [Farxiga] 10 mg PO DAILY predniSONE See Taper PO DIRECTED Furosemide [Lasix] 60 mg PO DIRECTED Cephalexin [Keflex] 500 mg PO DIRECTED Discharge Medication List Metoprolol Tartrate 25 mg PO BID 11/02/14 [History] allopurinoL [Zyloprim] 200 mg PO DAILY 11/02/14 [History] Montelukast [Singulair] 10 mg PO HS #30 tab 11/07/14 [Rx] Sertraline [Zoloft] 100 mg PO DAILY 04/04/17 [History] Atorvastatin [Lipitor] 20 mg PO HS 07/14/19 [History] Spironolactone [Aldactone] 25 mg PO DAILY 07/14/19 [History] Tamsulosin [Flomax] 0.4 mg PO DAILY 07/14/19 [History] Ipratropium-Albuterol Nebulize [Duoneb 0.5 mg-3 mg/3 ml Soln] 3 ml INHALATION RT-Q6H 08/19/19 [History] Acetaminophen Tab [Tylenol] 500 mg PO Q6H PRN 03/26/23 [History] Cholecalciferol [Vitamin D3 (25 Mcg = 1000 Iu)] 50 mcg PO DAILY 03/26/23 [History] Pantoprazole [Protonix] 40 mg PO DAILY 03/26/23 [History] Potassium Chloride ER [K-Dur 20] 20 meq PO BID 03/26/23 [History] tadalafiL 5 mg PO DAILY PRN 03/26/23 [History] Baclofen [Lioresal] 10 mg PO BID PRN tab 03/31/23 [Rx] SILVER sulfADIAZINE Cream [Silvadene 1% Cream] 1 applic TOPICAL DAILY each 03/31/23 [Rx] Ammonium Lactate Lotion [Lac-Hydrin 12% Lotion] 1 applic TOPICAL BID 06/22/23 [History] Semaglutide [Ozempic] 0.5 mg SQ Q7D 06/22/23 [History] traZODone HCL 150 mg PO HS PRN 06/22/23 [History] Rivaroxaban [Xarelto] 15 mg PO W/SUPPER #30 tab 06/25/23 [Rx] Cephalexin [Keflex] 500 mg PO Q8HR 10 Days #30 cap 07/09/23 [Rx] Dapagliflozin Propanediol [Farxiga] 5 mg PO DAILY #30 tablet 07/09/23 [Rx] Furosemide [Lasix] 80 mg PO DAILY #0 07/09/23 [Rx] Follow up Appointment(s)/Referral(s): [facility], [NON-STAFF] - As Needed Alison Leon MD [Primary Care Provider] - 1 Week Discharge/Stand Alone Forms: Who Do I Call?, Community Resources, Help In The Home, [employer] Discharge Disposition: HOME WITH HOME HEALTH SERVICES
[2023-07-09] MEDS: TAMSULOSIN 0.4 MG CAP.ER.24H PO SCH (08:55)
[2023-07-09] MEDS: SPIRONOLACTONE 25 MG TAB PO SCH (08:55)
[2023-07-09] MEDS: FUROSEMIDE 10 MG/ML 4 ML VIAL IV SCH (08:55)
[2023-07-09] MEDS: METOPROLOL TARTRATE 25 MG TAB PO SCH (08:55)
[2023-07-09] MEDS: PANTOPRAZOLE 40 MG TABLET PO SCH (08:56)
[2023-07-09] MEDS: BACLOFEN 10 MG TAB PO PRN (08:56)
[2023-07-09] MEDS: allopurinoL 100 MG TAB PO SCH (08:56)
[2023-07-09] MEDS: SERTRALINE 100 MG TAB PO SCH (08:56)
[2023-07-09] MEDS: DAPAGLIFLOZIN PROPANEDIOL 10 MG TABLET PO SCH (08:57)
[2023-07-09] MEDS: AMMONIUM LACTATE 12% LOTION 225 GM BTL TOPICAL SCH (08:57)
[2023-07-09 09:35] LABS: HCT 29.8 % (39.6-50.0); HGB 8.9 d/dL (13.0-17.0); MCH 24.7 pg (27.0-32.0); MCHC 29.9 d/dL (32.0-37.0); MCV 82.8 FL (80.0-97.0); Mean Platelet Volume 9.2 FL (9.5-12.2); NRBC Per 100 WBC 0 X 10*3/uL (0.00-0.01); Platelet Count 128 X 10*3/uL (140-440); RDW 20.7 % (11.5-14.5); WBC 7.91 X 10*3/uL (4.50-10.00)
[2023-07-09 10:50] LABS: Glucose,Whole Blood 126 mg/dL (70-110)
== END 2023-07-09 14:23 | disposition home health service (06) | DRG 871 ==
LOC: EC 19:42 → 4SSUR 22:44
PROVIDERS: ADMIT Internal Medicine; ATTEND Internal Medicine
DX: A41.59 Other Gram-negative sepsis (principal); G93.41 Metabolic encephalopathy; I50.43 Acute on chronic combined systolic (congestive) and diastolic (congestive) heart failure; L97.909 Non-pressure chronic ulcer of unspecified part of unspecified lower leg with unspecified severity; E66.2 Morbid (severe) obesity with alveolar hypoventilation; Z68.41 Body mass index [BMI] 40.0-44.9, adult; J96.11 Chronic respiratory failure with hypoxia; L03.115 Cellulitis of right lower limb; D61.818 Other pancytopenia; L97.818 Non-pressure chronic ulcer of other part of right lower leg with other specified severity; L97.828 Non-pressure chronic ulcer of other part of left lower leg with other specified severity; L03.116 Cellulitis of left lower limb; L97.919 Non-pressure chronic ulcer of unspecified part of right lower leg with unspecified severity; J45.40 Moderate persistent asthma, uncomplicated; N40.0 Benign prostatic hyperplasia without lower urinary tract symptoms; I87.8 Other specified disorders of veins; I48.0 Paroxysmal atrial fibrillation; Z79.01 Long term (current) use of anticoagulants; E78.5 Hyperlipidemia, unspecified; E11.42 Type 2 diabetes mellitus with diabetic polyneuropathy; E03.9 Hypothyroidism, unspecified; Z79.890 Hormone replacement therapy; F41.9 Anxiety disorder, unspecified; F41.1 Generalized anxiety disorder; I11.0 Hypertensive heart disease with heart failure; I83.018 Varicose veins of right lower extremity with ulcer other part of lower leg; I83.028 Varicose veins of left lower extremity with ulcer other part of lower leg; J43.9 Emphysema, unspecified; R65.20 Severe sepsis without septic shock; Z79.4 Long term (current) use of insulin; Z79.84 Long term (current) use of oral hypoglycemic drugs; Z79.899 Other long term (current) drug therapy; Z96.653 Presence of artificial knee joint, bilateral; Z99.81 Dependence on supplemental oxygen
CPT/HCPCS: 36415; 70450; 71045; 80048; 80053; 80202; 80306; 80320; 81003; 82140; 83605; 83735; 83880; 84484; 85025; 85027; 85610; 85730; 87040; 87070; 87075; 87077; 87186; 87205; 93005; 94640; 94760; 96365; 96366; 99285

== ENCOUNTER 2023-07-15 10:24 | Inpatient (IN) | payer MEDICARE, BC ==
[2023-07-15 10:58] LABS: Anisocytosis Slight; Basophils % (A) 1 %; Eosinophils # (A) 0.2 k/uL (0-0.7); Eosinophils % (A) 3 %; HCT 30.9 % (39.0-53.0); HGB 10.3 gm/dL (13.0-17.5); Lymphocytes # (A) 0.9 k/uL (1.0-4.8); Lymphocytes % (A) 13 %; MCH 26.5 pg (25.0-35.0); MCHC 33.2 g/dL (31.0-37.0); MCV 79.8 fL (80.0-100.0); Mean Platelet Volume 7.2; Microcytosis Slight; Monocytes # (A) 0.6 k/uL (0-1.0); Monocytes % (A) 9 %; Neutrophils # (A) 4.9 k/uL (1.3-7.7); Neutrophils % (A) 73 %; Platelet Count 233 k/uL (150-450); RBC 3.88 m/uL (4.30-5.90); RDW 19.4 % (11.5-15.5); WBC 6.7 k/uL (3.8-10.6)
[2023-07-15 11:06] LABS: INR 1.1 (<1.2); Partial Thromboplastin Time 28.5 sec (22.0-30.0); Prothrombin Time 11.9 sec (9.0-12.0)
--- NOTE | 2023-07-15 11:08 | XR ---
EXAMINATION TYPE: XR chest 2V DATE OF EXAM: 07/15/2023 11:03 AM COMPARISON: Chest radiographs from 07/05/2023 TECHNIQUE: XR chest 2V Frontal and lateral views of the chest. CLINICAL INDICATION:Male, 72 years old with history of Chest Pain; FINDINGS: Lungs/Pleura: There is no evidence of pleural effusion, focal consolidation, or pneumothorax. Chroni c interstitial prominence. Hyperinflation compatible with COPD. Pulmonary vascularity: Unremarkable. Heart/mediastinum: Cardiomediastinal silhouette is enlarged and stable. Atherosclerotic calcificatio ns are seen in the aorta. Musculoskeletal: Multiple level degenerative disc disease changes seen throughout the spine. IMPRESSION: Chronic changes without evidence for acute process.
[2023-07-15 11:16] LABS: NT-Pro-B-Type Natriuretic Pept 2320 pg/mL
--- NOTE | 2023-07-15 11:44 | ED ---
Chest Pain HPI - General Source: patient Mode of arrival: ambulatory Limitations: no limitations <Sujey Shrestha - Last Filed: 07/15/23 11:39> <Vinayak Trujillo - Last Filed: 07/15/23 15:43> - General Chief Complaint: Chest Pain Stated Complaint: chest pain Time Seen by Provider: 07/15/23 11:39 - History of Present Illness Initial Comments: Patient is 72-year-old male presenting emergency room complaints of chest discomfort caused by shortness of breath and is worse with deep inspiration. He reports a cough that is nonproductive. He states that he wears approximately 2 L of nasal cannula oxygen at home and has been using it regularly. He has chronic lower extremity swelling that he states has not become any worse. He does start complaining of dry mouth. He denies any typical chest pain, abdominal pain, nausea, vomiting or fevers or chills. (Sujey Shrestha) This is a 72-year-old male who presents emergency Department complaining of chest pain since this morning. Patient states the pain radiates to his right flank. Patient also states she's very short of breath. Patient denies any diaphoretic episodes. Patient denies any nausea. Patient denies abdominal pain. Patient states he's had no fever chills lately. Patient denies any cough. Patient states he used to smoke but he doesn't any longer. Patient denies diabetes but he does state he has high blood pressure high cholesterol. Patient states he does not believe he had any heart history at all. (Vinayak Trujillo) - Related Data Home Medications Medication Instructions Recorded Confirmed Metoprolol Tartrate 25 mg PO BID 11/02/14 07/15/23 allopurinoL [Zyloprim] 200 mg PO DAILY 11/02/14 07/15/23 Sertraline [Zoloft] 100 mg PO DAILY 04/04/17 07/15/23 Atorvastatin [Lipitor] 20 mg PO HS 07/14/19 07/15/23 Spironolactone [Aldactone] 25 mg PO DAILY 07/14/19 07/15/23 Tamsulosin [Flomax] 0.4 mg PO DAILY 07/14/19 07/15/23 Ipratropium-Albuterol Nebulize 3 ml INHALATION RT-Q6H 08/19/19 07/15/23 [Duoneb 0.5 mg-3 mg/3 ml Soln] Acetaminophen Tab [Tylenol] 500 mg PO Q6H PRN 03/26/23 07/15/23 Cholecalciferol [Vitamin D3 (25 50 mcg PO DAILY 03/26/23 07/15/23 Mcg = 1000 Iu)] Pantoprazole [Protonix] 40 mg PO DAILY 03/26/23 07/15/23 Potassium Chloride ER [K-Dur 20] 20 meq PO BID 03/26/23 07/15/23 tadalafiL 5 mg PO DAILY PRN 03/26/23 07/15/23 Ammonium Lactate Lotion 1 applic TOPICAL BID 06/22/23 07/15/23 [Lac-Hydrin 12% Lotion] Semaglutide [Ozempic] 0.5 mg SQ Q7D 06/22/23 07/15/23 traZODone HCL 150 mg PO HS PRN 06/22/23 07/15/23 Dapagliflozin Propanediol [Farxiga] 5 mg PO DIRECTED 07/15/23 07/15/23 Dapagliflozin Propanediol [Farxiga] 10 mg PO DIRECTED 07/15/23 07/15/23 Empagliflozin [Jardiance] 10 mg PO DAILY 07/15/23 07/15/23 Previous Rx's Medication Instructions Recorded Montelukast [Singulair] 10 mg PO HS #30 tab 11/07/14 Baclofen [Lioresal] 10 mg PO BID PRN tab 03/31/23 SILVER sulfADIAZINE Cream 1 applic TOPICAL DAILY each 03/31/23 [Silvadene 1% Cream] Rivaroxaban [Xarelto] 15 mg PO W/SUPPER #30 tab 06/25/23 Cephalexin [Keflex] 500 mg PO Q8HR 10 Days #30 cap 07/09/23 Furosemide [Lasix] 80 mg PO DAILY #0 07/09/23 Allergies Allergy/AdvReac Type Severity Reaction Status Date / Time No Known Allergies Allergy Verified 07/15/23 13:56 Review of Systems ROS Other: All systems not noted in ROS Statement are negative. <Sujey Shrestha - Last Filed: 07/15/23 11:39> ROS Other: All systems not noted in ROS Statement are negative. <Vinayak Trujillo - Last Filed: 07/15/23 15:43> ROS Statement: Those systems with pertinent positive or pertinent negative responses have been documented in the HPI. Past Medical History Past Medical History: Asthma, Chest Pain / Angina, GERD/Reflux, Hyperlipidemia, Hypertension, Osteoarthritis (OA), Pneumonia, Sleep Apnea/CPAP/BIPAP Additional Past Medical History / Comment(s): uses oxygen at night 2L, gout, in wheelchair or walker due to pain in left leg, poor circulation in legs(takes coumadin for) History of Any Multi-Drug Resistant Organisms: None Reported Past Surgical History: Orthopedic Surgery, Tonsillectomy Additional Past Surgical History / Comment(s): LEFT WRIST ORIF, LEFT KNEE REPLACEMENT, bilateral cataract surgery Past Anesthesia/Blood Transfusion Reactions: No Reported Reaction Additional Past Anesthesia/Blood Transfusion Reaction / Comment(s): . Past Psychological History: No Psychological Hx Reported, Depression Smoking Status: Former smoker Past Alcohol Use History: None Reported Past Drug Use History: None Reported - Past Family History Mother Family Medical History: Congestive Heart Failure (CHF), Osteoarthritis (OA) Father Additional Family Medical History / Comment(s): FROM [place] Brother(s) Family Medical History: Cancer Additional Family Medical History / Comment(s): . Sister(s) Family Medical History: Deep Vein Thrombosis (DVT) <Sujey Shrestha - Last Filed: 07/15/23 11:39> General Exam Limitations: no limitations <Sujey Shrestha - Last Filed: 07/15/23 11:39> <Vinayak Trujillo - Last Filed: 07/15/23 15:43> - General Exam Comments Initial Comments: Visual Physical Exam Vital signs reviewed General: Well-appearing, nontoxic, no acute distress. Head: Normocephalic, atraumatic Eyes: PERRLA, EOMI ENT: Airway patent Chest: Nonlabored breathing Skin: Bilateral lower symmetry swelling with discoloration and anterior wounds noted. Neuro: Alert and oriented 3 Musculoskeletal: No gross abnormalities I performed with the Quicknote portion Sujey Shrestha COMPUTER TRAINING SPECIALIST-c (Sujey Shrestha) GENERAL: Patient is well-developed and well-nourished. Patient is nontoxic and well- hydrated and is in mild distress. ENT: Neck is soft and supple. No significant lymphadenopathy is noted. Oropharynx is clear. Moist mucous membranes. Neck has full range of motion without eliciting any pain. EYES: The sclera were anicteric and conjunctiva were pink and moist. Extraocular movements were intact and pupils were equal round and reactive to light. Eyelids were unremarkable. PULMONARY: Patient has crackles in the bases CARDIOVASCULAR: There is a regular rate and rhythm without any murmurs gallops or rubs. ABDOMEN: Soft and nontender with normal bowel sounds. SKIN: Skin is clear with no lesions or rashes and otherwise unremarkable. NEUROLOGIC: Patient is alert and oriented x3. Cranial nerves II through XII are grossly intact. Motor and sensory are also intact. Normal speech, volume and content. Symmetrical smile. MUSCULOSKELETAL: Normal extremities with adequate strength and full range of motion. 2+ edema LYMPHATICS: No significant lymphadenopathy is noted PSYCHIATRIC: Normal psychiatric evaluation. (Vinayak Trujillo) Course Vital Signs 07/15/23 10:30 Temperature 98.8 F Pulse Rate 68 Respiratory 18 Rate Blood Pressure 97/51 O2 Sat by Pulse 93 L Oximetry Chest Pain [facility] <Vinayak Trujillo - Last Filed: 07/15/23 15:43> - [facility] EKG was interpreted by myself. EKG shows a sinus rhythm at 64 bpm OH interval is 154 QRS is 120 QT intervals 454 QTC is 464. Patient's EKG shows PVCs but no ST segment elevation. Was pt. sent in by a medical professional or institution (MARIE Recio, COMPUTER TRAINING SPECIALIST, urgent care, hospital, or jail...) When possible be specific @ -No Did you speak to anyone other than the patient for history (EMS, parent, family, police, friend...)? What history was obtained from this source @ -No Did you review nursing and triage notes (agree or disagree)? Why? @ -I reviewed and agree with nursing and triage notes Were old charts reviewed (outside hosp., previous admission, EMS record, old EKG, old radiological studies, urgent care reports/EKG's, jail records)? Report findings @ -I reviewed prior lab work and charts on this patient Differential Diagnosis (chest pain, altered mental status, abdominal pain women, abdominal pain men, vaginal bleeding, weakness, fever, dyspnea, syncope, headache, dizziness, GI bleed, back pain, seizure, CVA, palpatations, mental health, musculoskeletal)? @ -Differential Chest Pain: Stable Angina, Unstable Angina, STEMI, NSTEMI Aortic Dissection, Pneumothorax, Musculoskeletal, Esophageal Spasm GERD, Cholecystitis, Pancreatitis, Zoster, this is not meant to be an all-inclusive list. EKG interpreted by me (3pts min.). @ -As above X-rays interpreted by me (1pt min.). @ -Chest x-ray shows mild pulmonary edema CT interpreted by me (1pt min.). @ -None done U/S interpreted by me (1pt. min.). @ -None done What testing was considered but not performed or refused? (CT, X-rays, U/S, labs)? Why? @ -None What meds were considered but not given or refused? Why? @ -None Did you discuss the management of the patient with other professionals (professionals i.e. , PA, COMPUTER TRAINING SPECIALIST, lab, RT, psych nurse, social media editor, gill net stringer, teacher, court registry officer, community case manager)? Give summary @ -I spoke with Dr. Leon he agreed to admit the patient admitted the patient wrote admitting orders Was smoking cessation discussed for >3mins.? @ -No Was critical care preformed (if so, how long)? @ -No Were there social determinants of health that impacted care today? How? (Homelessness, low income, unemployed, alcoholism, drug addiction, transportation, low edu. Level, literacy, decrease access to med. care, snf, rehab)? @ -No Was there de-escalation of care discussed even if they declined (Discuss DNR or withdrawal of care, Hospice)? DNR status @ -No What co-morbidities impacted this encounter? (DM, HTN, Smoking, COPD, CAD, Cancer, CVA, ARF, Chemo, Hep., AIDS, mental health diagnosis, sleep apnea, morbid obesity)? @ -None Was patient admitted / discharged? Hospital course, mention meds given and route, prescriptions, significant lab abnormalities, going to OR and other pertinent info. @ -Patient was given some Lasix on the emergency department because of his significant edema elevated BNP and questionable pulmonary edema chest x-ray. Patient stated his chest pain was considerably better while he was in the emergency department. He was considering leaving AMA but he decided to stay. I spoke with Dr. Leon he agreed to admit the patient to the patient I consulted cardiology. Undiagnosed new problem with uncertain prognosis? @ -No Drug Therapy requiring intensive monitoring for toxicity (Heparin, Nitro, Insulin, Cardizem)? @ -No Were any procedures done? @ -No Diagnosis/symptom? @ -Chest pain Acute, or Chronic, or Acute on Chronic? @ -Acute Uncomplicated (without systemic symptoms) or Complicated (systemic symptoms)? @ -Complicated Side effects of treatment? @ -No Exacerbation, Progression, or Severe Exacerbation? @ -No Poses a threat to life or bodily function? How? (Chest pain, [place], [place], pneumonia, PE, COPD, DKA, ARF, appy, cholecystitis, CVA, Diverticulitis, Homicidal, Suicidal, threat to staff... and all critical care pts) @ -Yes this can lead to poor perfusion and end organ dysfunction Diagnosis/symptom? @ -Pulmonary edema Acute, or Chronic, or Acute on Chronic? @ -Acute Uncomplicated (without systemic symptoms) or Complicated (systemic symptoms)? @ -Complicated Side effects of treatment? @ -none Exacerbation, Progression, or Severe Exacerbation] @ -no Poses a threat to life or bodily function? @ -no (Vinayak Trujillo) Disposition <Sujey Shrestha - Last Filed: 07/15/23 11:39> Time of Disposition: 15:40 <Vinayak Trujillo - Last Filed: 07/15/23 15:43> Clinical Impression: Chest pain, Acute pulmonary edema, Hypomagnesemia, Hypokalemia Disposition: ADMITTED IP TO THIS HOSP Referrals: Alison Leon MD [Primary Care Provider] - 1-2 days
[2023-07-15 12:02] LABS: ALT 17 U/L (4-49); AST 32 U/L (17-59); African American GFR (CKD) 57 (>60 ml/min/1.73 sqM); Albumin 3.4 g/dL (3.5-5.0); Alkaline Phosphatase 124 U/L (38-126); Anion Gap 10 mmol/L; Blood Urea Nitrogen 25 mg/dL (9-20); Calcium 8.6 mg/dL (8.4-10.2); Carbon Dioxide 25 mmol/L (22-30); Chloride 98 mmol/L (98-107); Glucose 103 mg/dL (74-99); Magnesium 1.4 mg/dL (1.6-2.3); Non-African American GFR(CKD) 49 (>60 ml/min/1.73 sqM); Potassium 2.9 mmol/L (3.5-5.1); Sodium 133 mmol/L (137-145); Total Protein 6.7 g/dL (6.3-8.2)
[2023-07-15] MEDS ORDERED: POTASSIUM CHLORIDE ER 20 MEQ TAB.ER PO STA ×2 (14:00→21:09)
[2023-07-15] MEDS ORDERED: FUROSEMIDE 10 MG/ML 4 ML VIAL IV STA (14:00)
[2023-07-15] MEDS: MAGNESIUM SULFATE-D5W PMX 1 GM in DEXTROSE/WATER 1 100ML.BAG IVPB SCH ×2 (14:18→16:25)
[2023-07-15] MEDS ORDERED: SODIUM BICARB 8.4% 50 ML SYR (1 MEQ/ML) IV STA (14:31)
[2023-07-15] MEDS ORDERED: NITROGLYCERIN SL TABS 0.4 MG TAB SUBLINGUAL PRN (15:40)
[2023-07-15] MEDS ORDERED: ASPIRIN 81 MG PO STA (15:40)
[2023-07-15] MEDS ORDERED: ACETAMINOPHEN TAB 500 MG TAB PO PRN (17:56)
[2023-07-15] MEDS ORDERED: BACLOFEN 10 MG TAB PO PRN (17:56)
[2023-07-15] MEDS ORDERED: traZODone HCL 50 MG TAB PO PRN (17:56)
[2023-07-15] MEDS ORDERED: NON FORMULARY DRUG (Semaglutide [Ozempic] 0.25 MG/0.2 ML Each) SQ SCH (18:00)
[2023-07-15 19:05] LABS: African American GFR (CKD) 54 (>60 ml/min/1.73 sqM); Anion Gap 12 mmol/L; Blood Urea Nitrogen 24 mg/dL (9-20); Calcium 8.8 mg/dL (8.4-10.2); Carbon Dioxide 26 mmol/L (22-30); Chloride 96 mmol/L (98-107); Glucose 116 mg/dL (74-99); Non-African American GFR(CKD) 46 (>60 ml/min/1.73 sqM); Potassium 2.9 mmol/L (3.5-5.1); Sodium 134 mmol/L (137-145)
[2023-07-15] MEDS ORDERED: BENZONATATE 100 MG CAP PO PRN (20:21)
[2023-07-15] MEDS: IPRATROPIUM-ALBUTEROL 3 ML NEB INHALATION SCH (20:56)
--- NOTE | 2023-07-15 21:09 | P.HPIM ---
History of Present Illness H&P Date: 07/15/23 Chief Complaint: chest pain HISTORY OF PRESENT ILLNESS: This is a 72-year-old male with a previous medical history significant for hypertension and hypertensive cardiovascular disease, hyperlipidemia, obesity with obstructive sleep apnea and obesity hypoventilation syndrome, chronic diastolic heart failure, asthma, hypothyroidism, anxiety and depressive disorder, peripheral neuropathy, patient was recently discharged from [facility] after he was admitted to the hospital for bilateral lower extremity cellulitis due to bilateral venous ulceration due to increased swelling in both lower extremity is, patient was treated with IV antibiotic as well as IV diuretics, and he was discharged home he was supposed to be discharged to subacute rehabilitation however the patient had refused any help at this point in time that was recommended for him by myself and by the physical therapy, for some reason patient did have in the regimen for home health care nurse to come to the home and check on the patient, patient apparently is not able and not capable of taking care of himself, his apartment that he is living and is an absolute mess is having significant the issues in the apartment including bedbugs and the carpet needs a lot of cleaning, patient medications are scattered all over the rooms and the patient does not know what he is taking and what is not taken, I received a call from the home healthcare nurse yesterday stating that the patient will need a lot of help he cannot live home alone otherwise he would IV Rocephin for the patient to try to go to the [facility] again and then tried to offer manager social to try to help him getting some company to clean his apartment at this point in time. Patient woke up in the morning today and he was having some right-sided chest pain radiating across the chest associated with increased swelling in both lower extremities, patient also reported that he did have a fall yesterday trying to get into his bed and he slipped and fell down patient ended up coming to the emergency department at [facility] his EKG did not show evidence of acute abnormalities, cardiac enzymes were negative, BNP was elevated, patient does appear to have a significant swelling in both lower extremities, patient was started on Lasix 20 mg IV push every 8 hours, and he was admitted to the hospital for evaluation by cardiology, patient oxygenation was around 87% on room air, he was placed on 2 L cannula, patient potassium level was low at 2.9, he did have replacement with 40 mEq of potassium along with potassium chloride 20 mg orally twice every day as well as I will ask manager social consultation for the patient to be transferred to subacute rehabilitation at this point in time, he would need to have somebody to come to his apartment to clean his apartment and to disinfect from the bedbugs as well, until then he would need quite a bit of help that would be provided through [facility] and rehabilitation REVIEW OF SYSTEMS: Constitutional: No documented fever, no chills, no night sweats. No weight change. No weakness, fatigue or lethargy. No daytime sleepiness. HEENT: No headache. No blurred vision or double vision, no loss of vision. No loss of Hearing, no ringing in the ears, no dizziness. No nasal drainage or congestion. No epistaxis. No sore throat. Lungs: positive for shortness of breath, occasional cough, minimal sputum production. No wheezing. Reports dyspnea with activity. Cardiovascular: positive for chest pain, positive for lower extremity edema. No palpitations. No paroxysmal nocturnal dyspnea. No orthopnea. No lightheadedness or dizziness. No syncopal episodes. Abdominal: Reports abdominal pain. No nausea, vomiting. No diarrhea. No constipation. No bloody or tarry stools reports loss of appetite. Genitourinary: No dysuria, increased frequency, urgency. No urinary retention. Musculoskeletal: No myalgias. positive for muscle weakness, positive for gait dysfunction, positive for frequent falls. positive for back pain. No neck pain, bilateral hip pain Integumentary: No wounds, no lesions. No rash or pruritus. No unusual bruising. No change in hair or nails. Neurologic: No aphasia. No facial droop. No change in mentation. No head injury. No headache. No paralysis. No paresthesia. Psychiatric: No depression. No anxiety. No mood swings. Endocrine: No abnormal blood sugars. No weight change. PAST MEDICAL HISTORY: Hypertension and hypertensive cardiovascular disease. Hyperlipidemia. Hypothyroidism. Obesity with obstructive sleep apnea and obesity hypoventilation syndrome Moderate persistent asthma. Enlarged prostate. Anxiety. PAST SURGICAL HISTORY: Left knee replacement Circumcision Colonoscopy SOCIAL HISTORY: She used to smoke about pack every day he smoked for many years and quit about 15 years ago, he denies any alcohol ingestion, no drug use or abuse. FAMILY HISTORY: Father at age of 61 from [place] mother at age of 70 and she had osteoarthritis patient had 3 brothers one from lung cancer one with CAD and 1 Parkinson disease and patient had 5 sisters all have passed PHYSICAL EXAMINATION: General: 72-year-old male lying down in bed in no distress HEENT: Head is atraumatic, normocephalic, pupils were equal round reactive to light and recommendation, extraocular muscle movement were intact, sclera nonicteric, conjunctivae were pale, mucous membranes of the mouth are somewhat dry. Neck: Supple, no JVP, normal carotid upstroke bilaterally, no lymphadenopathy. Chest: Decreased breath sounds at the bases, few rhonchi, no expiratory wheezes, no chest wall tenderness, no intercostal retractions. Heart: First heart sound is normal, second heart sound is normal, there is systolic ejection murmur 2/6 located in the left sternal border. Abdomen: Soft, nontender, nondistended, positive bowel sounds, obese. Extremities: There is +2 edema no calf tenderness DP +2 bilaterally, there is bilateral scabbed lesions in both shins free Neurologic examination: Patient is awake alert and oriented X 3, cranial nerves II-12 appear grossly intact, muscle power were 5 out of 5 in upper extremities and 3/5 in bilateral lower extremities ASSESSMENT AND PLAN: 1. Acute hypoxemic respiratory failure due to acute on chronic diastolic heart failure . patient was started on Lasix 20 mg IV push every 8 hours, monitor input and output and daily weight, continue spironolactone 25 mg orally once every day, continue patient on Farxiga 10 mg orally once every day, metoprolol 25 mg orally twice every day, cardiology consultation. 2. Bilateral lower extremity venous stasis with scabbed wounds Continue leg elevation and bilateral Toribio wrap. 3. Hypokalemia and hypomagnesemia. Status post placement 3. COPD/moderate persistent asthma and not in exacerbation with chronic hypoxemic respiratory failure continue oxygen support continue DuoNeb 3 mg nebul ization 4 times every day. 4. Paroxysmal atrial fibrillation Continue patient on metoprolol 25 mg orally twice every day, on Xarelto 15 mg orally once every day 5.. Hypertension and hypertensive cardiovascular disease. Continue patient on metoprolol 25 mg orally twice every day, monitor the patient blood pressure very closely. 6. Hyperlipidemia. Continue patient on atorvastatin 20 mg orally once every day, monitor lipid panel, keep LDL 55-70. 7. Enlarged prostate. Continue patient on tamsulosin 0.4 mg orally once every day, discontinue tadalafil 8. Anxiety disorder. Continue patient on sertraline 100 mg orally once every day. 9. Neuropathy. Continue patient on gabapentin 300 mg at bedtime. 10. DVT prophylaxis. Continue Xarelto 15 mg po daily 11. GI prophylaxis. Continue patient on Protonix 40 mg orally once every day. 12. Admit to inpatient. Estimate a length of stay 2 midnights. 13. Patient is full code. Past Medical History Past Medical History: Asthma, Chest Pain / Angina, GERD/Reflux, Hyperlipidemia, Hypertension, Osteoarthritis (OA), Pneumonia, Sleep Apnea/CPAP/BIPAP Additional Past Medical History / Comment(s): uses oxygen at night 2L, gout, in wheelchair or walker due to pain in left leg, poor circulation in legs(takes coumadin for) History of Any Multi-Drug Resistant Organisms: None Reported Past Surgical History: Orthopedic Surgery, Tonsillectomy Additional Past Surgical History / Comment(s): LEFT WRIST ORIF, LEFT KNEE REPLACEMENT, bilateral cataract surgery Past Anesthesia/Blood Transfusion Reactions: No Reported Reaction Additional Past Anesthesia/Blood Transfusion Reaction / Comment(s): . Past Psychological History: No Psychological Hx Reported, Depression Smoking Status: Former smoker Past Alcohol Use History: None Reported Past Drug Use History: None Reported - Past Family History Mother Family Medical History: Congestive Heart Failure (CHF), Osteoarthritis (OA) Father Additional Family Medical History / Comment(s): FROM [place] Brother(s) Family Medical History: Cancer Additional Family Medical History / Comment(s): . Sister(s) Family Medical History: Deep Vein Thrombosis (DVT) Medications and Allergies Home Medications Medication Instructions Recorded Confirmed Type Metoprolol Tartrate 25 mg PO BID 11/02/14 07/15/23 History allopurinoL [Zyloprim] 200 mg PO DAILY 11/02/14 07/15/23 History Montelukast [Singulair] 10 mg PO HS #30 tab 11/07/14 07/15/23 Rx Sertraline [Zoloft] 100 mg PO DAILY 04/04/17 07/15/23 History Atorvastatin [Lipitor] 20 mg PO HS 07/14/19 07/15/23 History Spironolactone [Aldactone] 25 mg PO DAILY 07/14/19 07/15/23 History Tamsulosin [Flomax] 0.4 mg PO DAILY 07/14/19 07/15/23 History Ipratropium-Albuterol Nebulize 3 ml INHALATION RT-Q6H 08/19/19 07/15/23 History [Duoneb 0.5 mg-3 mg/3 ml Soln] Acetaminophen Tab [Tylenol] 500 mg PO Q6H PRN 03/26/23 07/15/23 History Cholecalciferol [Vitamin D3 (25 50 mcg PO DAILY 03/26/23 07/15/23 History Mcg = 1000 Iu)] Pantoprazole [Protonix] 40 mg PO DAILY 03/26/23 07/15/23 History Potassium Chloride ER [K-Dur 20] 20 meq PO BID 03/26/23 07/15/23 History tadalafiL 5 mg PO DAILY PRN 03/26/23 07/15/23 History Baclofen [Lioresal] 10 mg PO BID PRN tab 03/31/23 07/15/23 Rx SILVER sulfADIAZINE Cream 1 applic TOPICAL DAILY each 03/31/23 07/15/23 Rx [Silvadene 1% Cream] Ammonium Lactate Lotion 1 applic TOPICAL BID 06/22/23 07/15/23 History [Lac-Hydrin 12% Lotion] Semaglutide [Ozempic] 0.5 mg SQ Q7D 06/22/23 07/15/23 History traZODone HCL 150 mg PO HS PRN 06/22/23 07/15/23 History Rivaroxaban [Xarelto] 15 mg PO W/SUPPER #30 tab 06/25/23 07/15/23 Rx Cephalexin [Keflex] 500 mg PO Q8HR 10 Days #30 cap 07/09/23 07/15/23 Rx Furosemide [Lasix] 80 mg PO DAILY #0 07/09/23 07/15/23 Rx Dapagliflozin Propanediol [Farxiga] 5 mg PO DIRECTED 07/15/23 07/15/23 Histo ry Dapagliflozin Propanediol [Farxiga] 10 mg PO DIRECTED 07/15/23 07/15/23 History Empagliflozin [Jardiance] 10 mg PO DAILY 07/15/23 07/15/23 History Allergies Allergy/AdvReac Type Severity Reaction Status Date / Time No Known Allergies Allergy Verified 07/15/23 13:56 Physical Exam Vitals: Vital Signs Temp Pulse Resp BP Pulse Ox 07/15/23 16:08 62 16 91/65 98 07/15/23 10:30 98.8 F 68 18 97/51 93 L Intake and Output 07/15/23 07/15/23 07/15/23 06:59 14:59 22:59 Other: Weight 127.006 kg Results CBC & Chem 7: 07/15/23 10:40 07/15/23 18:33 Labs: Abnormal Lab Results - Last 24 Hours (Table) 07/15/23 07/15/23 Range/Units 10:40 10:40 RBC 3.88 L (4.30-5.90) m/uL Hgb 10.3 L (13.0-17.5) gm/dL Hct 30.9 L (39.0-53.0) % MCV 79.8 L (80.0-100.0) fL RDW 19.4 H (11.5-15.5) % Lymphocytes # 0.9 L (1.0-4.8) k/uL Sodium 133 L (137-145) mmol/L Potassium 2.9 L (3.5-5.1) mmol/L BUN 25 H (9-20) mg/dL Creatinine 1.43 H (0.66-1.25) mg/dL Glucose 103 H (74-99) mg/dL Magnesium 1.4 L (1.6-2.3) mg/dL Albumin 3.4 L (3.5-5.0) g/dL
[2023-07-15] MEDS: MONTELUKAST 10 MG TAB PO SCH (21:22)
[2023-07-15] MEDS: ATORVASTATIN 20 MG TAB PO SCH (21:22)
[2023-07-15] MEDS: POTASSIUM CHLORIDE ER 20 MEQ TAB.ER PO SCH (21:22)
[2023-07-15] MEDS: RIVAROXABAN 15 MG TAB PO SCH (21:23)
[2023-07-15] MEDS: METOPROLOL TARTRATE 25 MG TAB PO SCH (21:23)
[2023-07-15] MEDS: NITROGLYCERIN OINT 1 INCH/GM PACKET TOPICAL SCH (21:23)
[2023-07-15] MEDS: GABAPENTIN 300 MG CAP PO SCH (21:23)
[2023-07-15] MEDS: FUROSEMIDE 10 MG/ML 2 ML VIAL IV SCH (21:24)
[2023-07-16] MEDS: NITROGLYCERIN OINT 1 INCH/GM PACKET TOPICAL SCH ×5 (00:59→23:17)
[2023-07-16] MEDS: IPRATROPIUM-ALBUTEROL 3 ML NEB INHALATION SCH ×4 (02:46→20:49)
[2023-07-16] MEDS: FUROSEMIDE 10 MG/ML 2 ML VIAL IV SCH ×3 (06:38→21:12)
[2023-07-16 08:40] LABS: Anisocytosis Slight; Basophils % (A) 0 %; Eosinophils # (A) 0.2 k/uL (0-0.7); Eosinophils % (A) 3 %; HCT 31.5 % (39.0-53.0); HGB 10.1 gm/dL (13.0-17.5); Hypochromasia Slight; Lymphocytes % (A) 14 %; MCH 26.3 pg (25.0-35.0); MCHC 32.1 g/dL (31.0-37.0); MCV 81.9 fL (80.0-100.0); Microcytosis Slight; Monocytes # (A) 0.6 k/uL (0-1.0); Monocytes % (A) 8 %; Neutrophils # (A) 5.1 k/uL (1.3-7.7); Neutrophils % (A) 73 %; Platelet Count 236 k/uL (150-450); RBC 3.84 m/uL (4.30-5.90); RDW 19.3 % (11.5-15.5)
[2023-07-16 08:58] LABS: ALT 17 U/L (4-49); AST 32 U/L (17-59); African American GFR (CKD) 53 (>60 ml/min/1.73 sqM); Albumin 3.4 g/dL (3.5-5.0); Alkaline Phosphatase 120 U/L (38-126); Anion Gap 10 mmol/L; Blood Urea Nitrogen 24 mg/dL (9-20); Calcium 8.6 mg/dL (8.4-10.2); Carbon Dioxide 27 mmol/L (22-30); Chloride 98 mmol/L (98-107); Glucose 106 mg/dL (74-99); Magnesium 1.7 mg/dL (1.6-2.3); Non-African American GFR(CKD) 46 (>60 ml/min/1.73 sqM); Potassium 3.5 mmol/L (3.5-5.1); Sodium 135 mmol/L (137-145); Total Protein 6.6 g/dL (6.3-8.2)
[2023-07-16] MEDS ORDERED: ASPIRIN 325 MG TAB PO SCH (09:00)
--- NOTE | 2023-07-16 09:15 | P.CRDCN ---
History of Present Illness Consult date: 07/16/23 Consult reason: chest pain History of present illness: History of present illness: This is a 72 year old male with past medical history of hypertension with hypertensive cardio vascular disease, hyperlipidemia, paroxymal a fib on Xarelto, obesity with obstructive sleep apnea and obesity hypoventilation syndrome, chronic diastolic heart failure, asthma, chronic hypoxic respiratory failure on home O2, hypothyroidism, peripheral neuropathy, remote history of tobacco use and dependence. Patient has had previous admissions for acute diastolic heart failure both at [facility] and at [facility]. He has been seen in the past by Dr. Lamb in the office in 2018. He denies following with a bowstring maker. We have been asked to evaluate the patient for chest pain. Patient states that he had midsternal chest pain start ed yesterday when he was getting out of bed. He is never had this before. He still has a little bit of pain left. He does not have it with activity. The pain radiates up to both shoulders. Patient is usually non-ambulatory and scoots himself seated on a walker. Patient was found to be in congestive heart failure and started on IV Lasix 20 mg every 8 hours. He has had 1100 ML's out. Patient feels like his shortness of breath is near his baseline. He has chronic lower extremity edema and wounds. EKG sinus rhythm with sinus arrhythmia, no acute ST changes Chest x-ray: Chronic changes without evidence of acute process. WBC 7.0, hemoglobin 10.1, platelet count 236. Sodium 135, potassium 3.5. Previous potassium 2.9 and has been replaced. BUN 24 and creatinine 1.5. Liver function tests are normal. Troponin negative 3. ProBNP 2320. Home cardiac medications: Atorvastatin 20 mg at bedtime, Farxiga, Lasix 80 mg daily, Xarelto 50 mg daily, Aldactone 25 mg daily. Echocardiogram 03/2023 revealed normal LV systolic function with EF of 50-55%, mitral calcification, aortic sclerosis. Cardiac catheterization [address] De Luna revealed calcified proximal LAD, normal LV size and function. Review Of Systems: At the time of my evaluation: Constitutional: No fever, no chills. No weakness, fatigue or lethargy. EENT: No headache. No dizziness. Lungs: No shortness of breath, cough, no sputum production. No wheezing. Chronic dyspnea on exertion Cardiovascular: + chest pain, + lower extremity edema. No palpitations. No paroxysmal nocturnal dyspnea. + orthopnea. No lightheadedness or dizziness. No syncopal episodes. Abdominal: + abdominal pain. No nausea, vomiting. No diarrhea. No constipation. No bloody or tarry stools. Genitourinary: No dysuria.. No urinary retention. Musculoskeletal: No myalgias. Chronic muscle weakness, no frequent falls. No back pain. No neck pain. Integumentary: + wounds to bilat lower legs. Neurologic: No aphasia. No facial droop. No change in mentation. Physical examination: Gen: This is a morbidly obese 72-year-old male. He is resting in bed and appears to be comfortable. No acute respiratory distress noted. VS: reviewed HEENT: Head is atraumatic, normocephalic. Pupils equal, round. Sclerae is anicteric. NECK: Supple. No JVD. LUNGS: Diminished bilaterally. No intercostal retractions. HEART: Regular rate and rhythm. No murmur. ABDOMEN: Soft tenderness to the right upper quadrant and left lower quadrant EXTREMITIES: 2+ pedal edema. Wounds to the bilateral pretibial areas NEUROLOGICAL: Patient is awake, alert and oriented x3. Assessment: Chest pain appears to be musculoskeletal Bilateral lower extremity wounds Acute on chronic diastolic heart failure Hypertensive cardiovascular disease Paroxysmal atrial fibrillation Obstructive sleep apnea Chronic hypoxic respiratory failure on home O2 Morbid obesity Asthma Plan: Continue patient on Lasix 20 mg IV every 8 hours for 1 more day and then t ransitioned to oral Continue home cardiac medications Monitor I&O, daily weights, renal function and electrolytes No need to repeat echocardiogram as one was done in March of this year Once patient's respiratory status is stabilized, plan for outpatient stress testing at a later date. Further recommendations to follow based upon clinical course Thank you kindly for this consultation. Nurse practitioner note has been reviewed, I agree with documented findings and plan of care. Patient was seen and examined. Past Medical History Past Medical History: Asthma, Chest Pain / Angina, GERD/Reflux, Hyperlipidemia, Hypertension, Osteoarthritis (OA), Pneumonia, Sleep Apnea/CPAP/BIPAP Additional Past Medical History / Comment(s): uses oxygen at night 2L, gout, in wheelchair or walker due to pain in left leg, poor circulation in legs History of Any Multi-Drug Resistant Organisms: None Reported Past Surgical History: Orthopedic Surgery, Tonsillectomy Additional Past Surgical History / Comment(s): LEFT WRIST ORIF, LEFT KNEE REPLACEMENT, bilateral cataract surgery Past Anesthesia/Blood Transfusion Reactions: No Reported Reaction Additional Past Anesthesia/Blood Transfusion Reaction / Comment(s): . Past Psychological History: Depression Additional Psychological History / Comment(s): Patient states he has slight confusion / memory loss. Smoking Status: Former smoker Past Alcohol Use History: None Reported Additional Past Alcohol Use History / Comment(s): . Past Drug Use History: None Reported - Past Family History Mother Family Medical History: Congestive Heart Failure (CHF), Osteoarthritis (OA) Father Additional Family Medical History / Comment(s): FROM [place] Brother(s) Family Medical History: Cancer Additional Family Medical History / Comment(s): . Sister(s) Family Medical History: Deep Vein Thrombosis (DVT) Medications and Allergies Home Medications Medication Instructions Recorded Confirmed Type Metoprolol Tartrate 25 mg PO BID 11/02/14 07/15/23 History allopurinoL [Zyloprim] 200 mg PO DAILY 11/02/14 07/15/23 History Montelukast [Singulair] 10 mg PO HS #30 tab 11/07/14 07/15/23 Rx Sertraline [Zoloft] 100 mg PO DAILY 04/04/17 07/15/23 History Atorvastatin [Lipitor] 20 mg PO HS 07/14/19 07/15/23 History Spironolactone [Aldactone] 25 mg PO DAILY 07/14/19 07/15/23 History Tamsulosin [Flomax] 0.4 mg PO DAILY 07/14/19 07/15/23 History Ipratropium-Albuterol Nebulize 3 ml INHALATION RT-Q6H 08/19/19 07/15/23 History [Duoneb 0.5 mg-3 mg/3 ml Soln] Acetaminophen Tab [Tylenol] 500 mg PO Q6H PRN 03/26/23 07/15/23 History Cholecalciferol [Vitamin D3 (25 50 mcg PO DAILY 03/26/23 07/15/23 History Mcg = 1000 Iu)] Pantoprazole [Protonix] 40 mg PO DAILY 03/26/23 07/15/23 History Potassium Chloride ER [K-Dur 20] 20 meq PO BID 03/26/23 07/15/23 History tadalafiL 5 mg PO DAILY PRN 03/26/23 07/15/23 History Baclofen [Lioresal] 10 mg PO BID PRN tab 03/31/23 07/15/23 Rx SILVER sulfADIAZINE Cream 1 applic TOPICAL DAILY each 03/31/23 07/15/23 Rx [Silvadene 1% Cream] Ammonium Lactate Lotion 1 applic TOPICAL BID 06/22/23 07/15/23 History [Lac-Hydrin 12% Lotion] Semaglutide [Ozempic] 0.5 mg SQ Q7D 06/22/23 07/15/23 History traZODone HCL 150 mg PO HS PRN 06/22/23 07/15/23 History Rivaroxaban [Xarelto] 15 mg PO W/SUPPER #30 tab 06/25/23 07/15/23 Rx Cephalexin [Keflex] 500 mg PO Q8HR 10 Days #30 cap 07/09/23 07/15/23 Rx Furosemide [Lasix] 80 mg PO DAILY #0 07/09/23 07/15/23 Rx Dapagliflozin Propanediol [Farxiga] 5 mg PO DIRECTED 07/15/23 07/15/23 History Dapagliflozin Propanediol [Farxiga] 10 mg PO DIRECTED 07/15/23 07/15/23 History Empagliflozin [Jardiance] 10 mg PO DAILY 07/15/23 07/15/23 History Allergies Allergy/AdvReac Type Severity Reaction Status Date / Time No Known Allergies Allergy Verified 07/15/23 13:56 Physical Exam Vitals: Vital Signs Temp Pulse Pulse Resp BP BP Pulse Ox 07/16/23 07:37 97.9 F 70 18 118/64 95 07/16/23 02:59 98.1 F 71 18 97/59 95 07/16/23 02:57 71 07/16/23 02:47 68 07/15/23 23:09 97.5 F L 67 22 97/57 97 07/15/23 21:05 62 07/15/23 20:58 66 07/15/23 19:55 97.6 F 63 20 99/60 98 07/15/23 19:33 98.5 F 68 20 115/59 98 07/15/23 16:08 62 16 91/65 98 07/15/23 10:30 98.8 F 68 18 97/51 93 L Intake and Output 07/15/23 07/16/23 07/16/23 22:59 06:59 14:59 Output Total 1100 Balance -1100 Output: Urine 1100 Other: Voiding Method Urinal Urinal Weight 127.006 kg 118.5 kg Results 07/16/23 07:27 07/16/23 07:27 Cardiac Enzymes 07/15/23 07/15/23 07/15/23 Range/Units 10:40 10:40 16:08 AST 32 (17-59) U/L Troponin I <0.012 <0.012 (0.000-0.034) ng/mL 07/15/23 Range/Units 18:33 AST (17-59) U/L Troponin I <0.012 (0.000-0.034) ng/mL Coagulation 07/15/23 Range/Units 10:40 PT 11.9 (9.0-12.0) sec APTT 28.5 (22.0-30.0) sec CBC 07/15/23 Range/Units 10:40 WBC 6.7 (3.8-10.6) k/uL RBC 3.88 L (4.30-5.90) m/uL Hgb 10.3 L (13.0-17.5) gm/dL Hct 30.9 L (39.0-53.0) % Plt Count 233 (150-450) k/uL Comprehensive Metabolic Panel 07/15/23 07/15/23 Range/Units 10:40 18:33 Sodium 133 L 134 L (137-145) mmol/L Potassium 2.9 L 2.9 L (3.5-5.1) mmol/L Chloride 98 96 L (98-107) mmol/L Carbon Dioxide 25 26 (22-30) mmol/L BUN 25 H 24 H (9-20) mg/dL Creatinine 1.43 H 1.49 H (0.66-1.25) mg/dL Glucose 103 H 116 H (74-99) mg/dL Calcium 8.6 8.8 (8.4-10.2) mg/dL AST 32 (17-59) U/L ALT 17 (4-49) U/L Alkaline Phosphatase 124 (38-126) U/L Total Protein 6.7 (6.3-8.2) g/dL Albumin 3.4 L (3.5-5.0) g/dL Current Medications Generic Name Dose Route Start Last Admin Trade Name Freq PRN Reason Stop Dose Admin Acetaminophen 500 mg 07/15/23 17:56 07/16/23 00:18 Acetaminophen Tab 500 Mg Tab PO 500 mg Q6H PRN Administration Pain Albuterol/Ipratropium 3 ml 07/15/23 20:00 07/16/23 02:46 Ipratropium-Albuterol 3 Ml Neb INHALATION 3 ml RT-Q6H JENNIFER Administration Allopurinol 200 mg 07/16/23 09:00 Allopurinol 100 Mg Tab PO DAILY JENNIFER Atorvastatin Calcium 20 mg 07/15/23 21:00 07/15/23 21:22 Atorvastatin 20 Mg Tab PO 20 mg HS JENNIFER Administration Baclofen 10 mg 07/15/23 17:56 Baclofen 10 Mg Tab PO BID PRN Muscle Spasm Benzonatate 200 mg 07/15/23 20:21 07/15/23 21:22 Benzonatate 100 Mg Cap PO 200 mg TID PRN Administration Cough Cholecalciferol 50 mcg 07/16/23 09:00 Cholecalciferol 25 Mcg (1000 Iu) Tablet PO DAILY JENNIFER Dapagliflozin 10 mg 07/16/23 09:00 Dapagliflozin Propanediol 10 Mg Tablet PO DAILY JENNIFER Furosemide 20 mg 07/15/23 22:00 07/16/23 06:38 Furosemide 10 Mg/Ml 2 Ml Vial IV 20 mg Q8H JENNIFER Administration Gabapentin 300 mg 07/15/23 21:00 07/15/23 21:23 Gabapentin 300 Mg Cap PO 300 mg HS JENNIFER Administration Metoprolol Tartrate 25 mg 07/15/23 21:00 07/15/23 21:23 Metoprolol Tartrate 25 Mg Tab PO Not Given BID JENNIFER Montelukast Sodium 10 mg 07/15/23 21:00 07/15/23 21:22 Montelukast 10 Mg Tab PO 10 mg HS JENNIFER Administration Nitroglycerin 0.4 mg 07/15/23 15:40 Nitroglycerin Sl Tabs 0.4 Mg Tab SUBLINGUAL Q5M PRN Chest Pain Nitroglycerin 1 inch 07/15/23 18:00 07/16/23 06:15 Nitroglycerin Oint 1 Inch/Gm Packet TOPICAL Not Given Q6HR JENNIFER Pantoprazole Sodium 40 mg 07/16/23 09:00 Pantoprazole 40 Mg Tablet PO DAILY JENNIFER Potassium Chloride 20 meq 07/15/23 21:00 07/15/23 21:22 Potassium Chloride Er 20 Meq Tab.Er PO Not Given BID JENNIFER Rivaroxaban 15 mg 07/15/23 19:00 07/15/23 21:23 Rivaroxaban 15 Mg Tab PO 15 mg W/SUPPER JENNIFER Administration Protocol Sertraline HCl 100 mg 07/16/23 09:00 Sertraline 100 Mg Tab PO DAILY [facility] Silver Sulfadiazine 1 applic 07/16/23 09:00 Silver Sulfadiazine 1% Cream 25 Gm Tube TOPICAL DAILY [facility] Spironolactone 25 mg 07/16/23 09:00 Spironolactone 25 Mg Tab PO DAILY [facility] Tamsulosin HCl 0.4 mg 07/16/23 09:00 Tamsulosin 0.4 Mg Cap.Er.24h PO DAILY [facility] Intake and Output 07/15/23 07/16/23 07/16/23 22:59 06:59 14:59 Output Total 1100 Balance -1100 Output: Urine 1100 Other: Voiding Method Urinal Urinal Weight 127.006 kg 118.5 kg 07/15/23 10:40 07/15/23 18:33
[2023-07-16] MEDS: METOPROLOL TARTRATE 25 MG TAB PO SCH ×2 (09:28→20:11)
[2023-07-16] MEDS: POTASSIUM CHLORIDE ER 20 MEQ TAB.ER PO SCH ×2 (09:28→20:11)
[2023-07-16] MEDS: TAMSULOSIN 0.4 MG CAP.ER.24H PO SCH (09:28)
[2023-07-16] MEDS: DAPAGLIFLOZIN PROPANEDIOL 10 MG TABLET PO SCH (09:28)
[2023-07-16] MEDS: SERTRALINE 100 MG TAB PO SCH (09:28)
[2023-07-16] MEDS: CHOLECALCIFEROL 25 MCG (1000 IU) TABLET PO SCH (09:28)
[2023-07-16] MEDS: PANTOPRAZOLE 40 MG TABLET PO SCH (09:28)
[2023-07-16] MEDS: allopurinoL 100 MG TAB PO SCH (09:28)
[2023-07-16] MEDS: SPIRONOLACTONE 25 MG TAB PO SCH (09:28)
--- NOTE | 2023-07-16 15:47 | P.PN ---
Subjective Progress Note Date: 07/16/23 HISTORY OF PRESENT ILLNESS: This is a 72-year-old male with a previous medical history significant for hypertension and hypertensive cardiovascular disease, hyperlipidemia, obesity with obstructive sleep apnea and obesity hypoventilation syndrome, chronic diastolic heart failure, asthma, hypothyroidism, anxiety and depressive disorder, peripheral neuropathy, patient was recently discharged from [facility] after he was admitted to the hospital for bilateral lower extremity cellulitis due to bilateral venous ulceration due to increased swelling in both lower extremity is, patient was treated with IV antibiotic as well as IV diuretics, and he was discharged home he was supposed to be discharged to subacute rehabilitation however the patient had refused any help at this point in time that was recommended for him by myself and by the physical therapy, for some reason patient did have in the regimen for home health care nurse to come to the home and check on the patient, patient apparently is not able and not capable of taking care of himself, his apartment that he is living and is an absolute mess is having significant the issues in the apartment including bedbugs and the carpet needs a lot of cleaning, patient medications are scattered all over the rooms and the patient does not know what he is taking and what is not taken, I received a call from the home healthcare nurse yesterday stating that the patient will need a lot of help he cannot live home alone otherwise he would IV Rocephin for the patient to try to go to the retirement again and then tried to offer social science teacher to try to help him getting some company to clean his apartment at this point in time. Patient woke up in the morning today and he was having some right-sided chest pain radiating across the chest associated with increased swelling in both lower extremities, patient also reported that he did have a fall yesterday trying to get into his bed and he slipped and fell down patient ended up coming to the emergency department at [facility] his EKG did not show evidence of acute abnormalities, cardiac enzymes were negative, BNP was elevated, patient does appear to have a significant swelling in both lower extremities, patient was started on Lasix 20 mg IV push every 8 hours, and he was admitted to the hospital for evaluation by cardiology, patient oxygenation was around 87% on room air, he was placed on 2 L cannula, patient potassium level was low at 2.9, he did have replacement with 40 mEq of potassium along with potassium chloride 20 mg orally twice every day as well as I will ask social science teacher consultation for the patient to be transferred to subacute rehabilitation at this point in time, he would need to have somebody to come to his apartment to clean his apartment and to disinfect from the bedbugs as well, until then he would need quite a bit of help that would be provided through [facility] and rehabilitation 07/16: Patient is seen today on the cardiac stepdown unit. He has been seen by cardiology with plan to continue IV Lasix for 1 more day and transition to oral Lasix. Eventually patient will have stress testing done as an outpatient. Blood pressure 113/55, heart rate in the 60s and 70s, afebrile, pulse ox 90% on 4 L nasal cannula. WBC 7, hemoglobin 10.1, platelet count 236. BUN 24 creatinine 1.5, sodium 135 and potassium 3.5. PT and OT consults were added today. fish farm manager is following for discharge planning. Patient is agreeable to go to subacute rehab at [facility]. REVIEW OF SYSTEMS: Constitutional: No documented fever, no chills, no night sweats. No weight change. No weakness, fatigue or lethargy. No daytime sleepiness. HEENT: No headache. No blurred vision or double vision, no loss of vision. No loss of Hearing, no ringing in the ears, no dizziness. No nasal drainage or congestion. No epistaxis. No sore throat. Lungs: positive for shortness of breath, occasional cough, minimal sputum production. No wheezing. Reports dyspnea with activity. Cardiovascular: positive for chest pain, positive for lower extremity edema. No palpitations. No paroxysmal nocturnal dyspnea. No orthopnea. No li ghtheadedness or dizziness. No syncopal episodes. Abdominal: Reports abdominal pain. No nausea, vomiting. No diarrhea. No constipation. No bloody or tarry stools reports loss of appetite. Genitourinary: No dysuria, increased frequency, urgency. No urinary retention. Musculoskeletal: No myalgias. positive for muscle weakness, positive for gait dysfunction, positive for frequent falls. positive for back pain. No neck pain, bilateral hip pain Integumentary: No wounds, no lesions. No rash or pruritus. No unusual bruising. No change in hair or nails. Neurologic: No aphasia. No facial droop. No change in mentation. No head injury. No headache. No paralysis. No paresthesia. Psychiatric: No depression. No anxiety. No mood swings. Endocrine: No abnormal blood sugars. No weight change. PHYSICAL EXAMINATION: General: 72-year-old male lying down in bed in no distress HEENT: Head is atraumatic, normocephalic, pupils were equal round reactive to light and recommendation, extraocular muscle movement were intact, sclera nonicteric, conjunctivae were pale, mucous membranes of the mouth are somewhat dry. Neck: Supple, no JVP, normal carotid upstroke bilaterally, no lymphadenopathy. Chest: Decreased breath sounds at the bases, few rhonchi, no expiratory wheezes, no chest wall tenderness, no intercostal retractions. Heart: First heart sound is normal, second heart sound is normal, there is systolic ejection murmur 2/6 located in the left sternal border. Abdomen: Soft, nontender, nondistended, positive bowel sounds, obese. Extremities: There is +2 edema no calf tenderness DP +2 bilaterally, there is bilateral scabbed lesions in both shins free Neurologic examination: Patient is awake alert and oriented X 3, cranial nerves II-12 appear grossly intact, muscle power were 5 out of 5 in upper extremities and 3/5 in bilateral lower extremities ASSESSMENT AND PLAN: 1. Acute hypoxemic respiratory failure due to acute on chronic diastolic heart failure . patient continued on Lasix 20 mg IV push every 8 hours, monitor input and output and daily weight, continue spironolactone 25 mg orally once every day, continue patient on Farxiga 10 mg orally once every day, metoprolol 25 mg orally twice every day, cardiology consultation appreciated. 2. Bilateral lower extremity venous stasis with scabbed wounds Continue leg elevation and bilateral Toribio wrap. 3. Hypokalemia and hypomagnesemia. Status post placement 3. COPD/moderate persistent asthma and not in exacerbation with chronic hypoxemic respiratory failure continue oxygen support continue DuoNeb 3 mg nebulization 4 times every day. 4. Paroxysmal atrial fibrillation Continue patient on metoprolol 25 mg orally twice every day, on Xarelto 15 mg orally once every day 5.. Hypertension and hypertensive cardiovascular disease. Continue patient on metoprolol 25 mg orally twice every day, monitor the patient blood pressure very closely. 6. Hyperlipidemia. Continue patient on atorvastatin 20 mg orally once every day, monitor lipid panel, keep LDL 55-70. 7. Enlarged prostate. Continue patient on tamsulosin 0.4 mg orally once every day, discontinue tadalafil 8. Anxiety disorder. Continue patient on sertraline 100 mg orally once every day. 9. Neuropathy. Continue patient on gabapentin 300 mg at bedtime. 10. DVT prophylaxis. Continue Xarelto 15 mg po daily 11. GI prophylaxis. Continue patient on Protonix 40 mg orally once every day. 12. Patient is full code. Discharge plan: Subacute rehab at [facility] in the next 24-48 hours Impression and plan of care have been directed as dictated by the signing physician. Concepción Perkins nurse practitioner acting as scribe for signing physician. Objective - Vital Signs Vital signs: Vital Signs Temp 97.9 F 07/16/23 07:37 Pulse 69 07/16/23 12:00 Resp 18 07/16/23 12:00 BP 95/62 07/16/23 12:00 Pulse Ox 97 07/16/23 12:00 FiO2 Intake & Output 07/15/23 07/16/23 07/16/23 18:59 06:59 18:59 Intake Total 118 Output Total 1100 425 Balance -1100 -307 Weight 127.006 kg 118.5 kg Intake: Oral 118 Output: Urine 1100 425 Other: Voiding Method Urinal Urinal - Labs CBC & Chem 7: 07/16/23 07:27 07/16/23 07:27 Labs: Abnormal Lab Results - Last 24 Hours (Table) 07/15/23 07/16/23 07/16/23 Range/Units 18:33 07:27 07:27 RBC 3.84 L (4.30-5.90) m/uL Hgb 10.1 L (13.0-17.5) gm/dL Hct 31.5 L (39.0-53.0) % RDW 19.3 H (11.5-15.5) % Sodium 134 L 135 L (137-145) mmol/L Potassium 2.9 L (3.5-5.1) mmol/L Chloride 96 L (98-107) mmol/L BUN 24 H 24 H (9-20) mg/dL Creatinine 1.49 H 1.50 H (0.66-1.25) mg/dL Glucose 116 H 106 H (74-99) mg/dL Albumin 3.4 L (3.5-5.0) g/dL
[2023-07-16] MEDS: RIVAROXABAN 15 MG TAB PO SCH (16:10)
[2023-07-16 16:17] LABS: Chol/HDL Ratio 3.84 Ratio; LDL Cholesterol,Calculated 55.6 mg/dL (0.0-131.0)
[2023-07-16] MEDS: GABAPENTIN 300 MG CAP PO SCH (20:11)
[2023-07-16] MEDS: MONTELUKAST 10 MG TAB PO SCH (20:11)
[2023-07-16] MEDS: ATORVASTATIN 20 MG TAB PO SCH (20:11)
[2023-07-16] MEDS ORDERED: IPRATROPIUM-ALBUTEROL 3 ML NEB INHALATION PRN (20:54)
[2023-07-16 23:13] VITALS: TEMP 98.1
[2023-07-17] MEDS: FUROSEMIDE 10 MG/ML 2 ML VIAL IV SCH (05:21)
[2023-07-17] MEDS: NITROGLYCERIN OINT 1 INCH/GM PACKET TOPICAL SCH ×2 (05:22→15:01)
[2023-07-17] MEDS: IPRATROPIUM-ALBUTEROL 3 ML NEB INHALATION SCH ×2 (07:35→11:00)
--- NOTE | 2023-07-17 08:36 | P.DS ---
Providers Date of admission: 07/15/23 15:40 Expected date of discharge: 07/17/23 Attending physician: Alison Leon Consults: 07/15/23 15:40 Consult Physician Urgent Consulting Provider: [facility] Consult Reason/Comments: Chest pain Do you want consulting provider notified?: Yes Primary care physician: Alison Loen Hospital Course: HISTORY OF PRESENT ILLNESS: This is a 72-year-old male with a previous medical history significant for hypertension and hypertensive cardiovascular disease, hyperlipidemia, obesity with obstructive sleep apnea and obesity hypoventilation syndrome, chronic diastolic heart failure, asthma, hypothyroidism, anxiety and depressive disorder, peripheral neuropathy, patient was recently discharged from [facility] after he was admitted to the hospital for bilateral lower extremity cellulitis due to bilateral venous ulceration due to increased swelling in both lower extremity is, patient was treated with IV antibiotic as well as IV diuretics, and he was discharged home he was supposed to be discharged to subacute rehabilitation however the patient had refused any help at this point in time that was recommended for him by myself and by the physical therapy, for some reason patient did have in the regimen for home health care nurse to come to the home and check on the patient, patient apparently is not able and not capable of taking care of himself, his apartment that he is living and is an absolute mess is having significant the issues in the apartment including bedbugs and the carpet needs a lot of cleaning, patient medications are scattered all over the rooms and the patient does not know what he is taking and what is not taken, I received a call from the home healthcare nurse yesterday stating that the patient will need a lot of help he cannot live home alone otherwise he would IV Rocephin for the patient to try to go to the group home again and then tried to offer social services manager to try to help him getting some company to clean his apartment at this point in time. Patient woke up in the morning today and he was having some right-sided chest pain radiating across the chest associated with increased swelling in both lower extremities, patient also reported that he did have a fall yesterday trying to get into his bed and he slipped and fell down patient ended up coming to the emergency department at [facility] his EKG did not show evidence of acute abnormalities, cardiac enzymes were negative, BNP was elevated, patient does appear to have a significant swelling in both lower extremities, patient was started on Lasix 20 mg IV push every 8 hours, and he was admitted to the hospital for evaluation by cardiology, patient oxygenation was around 87% on room air, he was placed on 2 L cannula, patient potassium level was low at 2.9, he did have replacement with 40 mEq of potassium along with potassium chloride 20 mg orally twice every day as well as I will ask social services manager consultation for the patient to be transferred to subacute rehabilitation at this point in time, he would need to have somebody to come to his apartment to clean his apartment and to disinfect from the bedbugs as well, until then he would need quite a bit of help that would be provided through [facility] and rehabilitation 07/16: Patient is seen today on the cardiac stepdown unit. He has been seen by cardiology with plan to continue IV Lasix for 1 more day and transition to oral Lasix. Eventually patient will have stress testing done as an outpatient. Blood pressure 113/55, heart rate in the 60s and 70s, afebrile, pulse ox 90% on 4 L nasal cannula. WBC 7, hemoglobin 10.1, platelet count 236. BUN 24 creatinine 1.5, sodium 135 and potassium 3.5. PT and OT consults were added today. law office manager is following for discharge planning. Patient is agreeable to go to subacute rehab at [facility]. 07/17: Patient states that he is feeling much better from yesterday with breathi ng improved and less edema in the lower extremities. He is currently on 3 L nasal cannula with pulse ox of 97%, heart rate in the 50s and 60s, afebrile, blood pressure 95/60. Repeat blood work reveals potassium 4.2, BUN 22 and creatinine 1.46. Patient is agreeable to go to [facility] for subacute rehab. Patient will be discharged to [facility] once all arrangements are completed. DISCHARGE DIAGNOSES: 1. Acute hypoxemic respiratory failure due to acute on chronic diastolic heart failure. 2. Bilateral lower extremity venous stasis with scabbed wounds 3. Hypokalemia and hypomagnesemia. Status post placement 3. COPD/moderate persistent asthma and not in exacerbation with chronic hypoxemic respiratory failure 4. Paroxysmal atrial fibrillation 5. Hypertension and hypertensive cardiovascular disease. 6. Hyperlipidemia. 7. Enlarged prostate. 8. Generalized Anxiety disorder. 9. Neuropathy. Discharge plan: Subacute rehab at [facility] Greater than 35 minutes was utilized and coordinating patient's discharge. Impression and plan of care have been directed as dictated by the signing physician. Concepción Perkins nurse practitioner acting as scribe for signing physician. Patient Condition at Discharge: Stable Plan - Discharge Summary Discharge Rx Participant: Yes New Discharge Prescriptions: New Gabapentin [Neurontin] 300 mg PO HS #3 cap Benzonatate [Tessalon Perles] 200 mg PO TID PRN cap PRN Reason: Cough Continue Metoprolol Tartrate 25 mg PO BID allopurinoL [Zyloprim] 200 mg PO DAILY Montelukast [Singulair] 10 mg PO HS #30 tab Sertraline [Zoloft] 100 mg PO DAILY Spironolactone [Aldactone] 25 mg PO DAILY Atorvastatin [Lipitor] 20 mg PO HS Tamsulosin [Flomax] 0.4 mg PO DAILY Ipratropium-Albuterol Nebulize [Duoneb 0.5 mg-3 mg/3 ml Soln] 3 ml INHALATION RT-Q6H Baclofen [Lioresal] 10 mg PO BID PRN tab PRN Reason: Muscle Spasm Rivaroxaban [Xarelto] 15 mg PO W/SUPPER #30 tab Cephalexin [Keflex] 500 mg PO Q8HR 10 Days #30 cap Furosemide [Lasix] 80 mg PO DAILY #0 Dapagliflozin Propanediol [Farxiga] 10 mg PO DIRECTED Acetaminophen Tab [Tylenol] 500 mg PO Q6H PRN PRN Reason: Pain Cholecalciferol [Vitamin D3 (25 Mcg = 1000 Iu)] 50 mcg PO DAILY Pantoprazole [Protonix] 40 mg PO DAILY Potassium Chloride ER [K-Dur 20] 20 meq PO BID SILVER sulfADIAZINE Cream [Silvadene 1% Cream] 1 applic TOPICAL DAILY each Semaglutide [Ozempic] 0.5 mg SQ Q7D Discontinued tadalafiL 5 mg PO DAILY PRN PRN Reason: E.D. Ammonium Lactate Lotion [Lac-Hydrin 12% Lotion] 1 applic TOPICAL BID traZODone HCL 150 mg PO HS PRN PRN Reason: Insomnia Dapagliflozin Propanediol [Farxiga] 5 mg PO DIRECTED Empagliflozin [Jardiance] 10 mg PO DAILY Discharge Medication List Metoprolol Tartrate 25 mg PO BID 12/03/14 [History] allopurinoL [Zyloprim] 200 mg PO DAILY 11/02/14 [History] Montelukast [Singulair] 10 mg PO HS #30 tab 11/07/14 [Rx] Sertraline [Zoloft] 100 mg PO DAILY 04/04/17 [History] Atorvastatin [Lipitor] 20 mg PO HS 07/14/19 [History] Spironolactone [Aldactone] 25 mg PO DAILY 07/14/19 [History] Tamsulosin [Flomax] 0.4 mg PO DAILY 07/14/19 [History] Ipratropium-Albuterol Nebulize [Duoneb 0.5 mg-3 mg/3 ml Soln] 3 ml INHALATION RT-Q6H 08/19/19 [History] Acetaminophen Tab [Tylenol] 500 mg PO Q6H PRN 03/26/23 [History] Cholecalciferol [Vitamin D3 (25 Mcg = 1000 Iu)] 50 mcg PO DAILY 03/26/23 [History] Pantoprazole [Protonix] 40 mg PO DAILY 03/26/23 [History] Potassium Chloride ER [K-Dur 20] 20 meq PO BID 03/26/23 [History] Baclofen [Lioresal] 10 mg PO BID PRN tab 03/31/23 [Rx] SILVER sulfADIAZINE Cream [Silvadene 1% Cream] 1 applic TOPICAL DAILY each 03/31/23 [Rx] Semaglutide [Ozempic] 0.5 mg SQ Q7D 06/22/23 [History] Rivaroxaban [Xarelto] 15 mg PO W/SUPPER #30 tab 06/25/23 [Rx] Cephalexin [Keflex] 500 mg PO Q8HR 10 Days #30 cap 07/09/23 [Rx] Furosemide [Lasix] 80 mg PO DAILY #0 07/09/23 [Rx] Dapagliflozin Propanediol [Farxiga] 10 mg PO DIRECTED 07/15/23 [History] Benzonatate [Tessalon Perles] 200 mg PO TID PRN cap 07/17/23 [Rx] Gabapentin [Neurontin] 300 mg PO HS #3 cap 07/17/23 [Rx] Follow up Appointment(s)/Referral(s): [facility] [Provider Group] - 2 Weeks Alison Leon MD [Primary Care Provider] - 1 Week (at [facility]) Discharge Disposition: TRANSFER TO SNF/ECF
[2023-07-17] MEDS ORDERED: FUROSEMIDE 80 MG TAB PO SCH (09:00)
[2023-07-17] MEDS: DAPAGLIFLOZIN PROPANEDIOL 10 MG TABLET PO SCH (09:03)
[2023-07-17] MEDS: METOPROLOL TARTRATE 25 MG TAB PO SCH (09:04)
[2023-07-17] MEDS: PANTOPRAZOLE 40 MG TABLET PO SCH (09:04)
[2023-07-17] MEDS: POTASSIUM CHLORIDE ER 20 MEQ TAB.ER PO SCH (09:04)
[2023-07-17] MEDS: TAMSULOSIN 0.4 MG CAP.ER.24H PO SCH (09:04)
[2023-07-17] MEDS: SERTRALINE 100 MG TAB PO SCH (09:04)
[2023-07-17] MEDS: SPIRONOLACTONE 25 MG TAB PO SCH (09:04)
[2023-07-17] MEDS: allopurinoL 100 MG TAB PO SCH (09:04)
[2023-07-17] MEDS: CHOLECALCIFEROL 25 MCG (1000 IU) TABLET PO SCH (09:04)
[2023-07-17 09:19] LABS: Anisocytosis Slight; HGB 9.7 gm/dL (13.0-17.5); Hypochromasia Moderate; MCH 25.7 pg (25.0-35.0); MCHC 30.4 g/dL (31.0-37.0); MCV 84.5 fL (80.0-100.0); Mean Platelet Volume 7.4; Platelet Count 259 k/uL (150-450); RBC 3.79 m/uL (4.30-5.90); RDW 18.9 % (11.5-15.5); WBC 7.6 k/uL (3.8-10.6)
[2023-07-17 09:35] LABS: African American GFR (CKD) 55 (>60 ml/min/1.73 sqM); Anion Gap 6 mmol/L; Blood Urea Nitrogen 22 mg/dL (9-20); Calcium 8.3 mg/dL (8.4-10.2); Carbon Dioxide 33 mmol/L (22-30); Chloride 98 mmol/L (98-107); Glucose 105 mg/dL (74-99); Non-African American GFR(CKD) 47 (>60 ml/min/1.73 sqM); Potassium 4.2 mmol/L (3.5-5.1); Sodium 137 mmol/L (137-145)
--- NOTE | 2023-07-17 11:22 | P.PN ---
Subjective Progress Note Date: 07/17/23 History of present illness: This is a 72 year old male with past medical history of hypertension with hype rtensive cardio vascular disease, hyperlipidemia, paroxymal a fib on Xarelto, obesity with obstructive sleep apnea and obesity hypoventilation syndrome, chronic diastolic heart failure, asthma, chronic hypoxic respiratory failure on home O2, hypothyroidism, peripheral neuropathy, remote history of tobacco use and dependence. Patient has had previous admissions for acute diastolic heart failure both at [facility] and at [facility]. He has been seen in the past by Dr. Lamb in the office in 2018. 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 We have been asked to evaluate the patient for chest pain. Patient states that he had midsternal chest pain started yesterday when he was getting out of bed. He is never had this before. He still has a little bit of pain left. He does not have it with activity. The pain radiates up to both shoulders. Patient is usually non-ambulatory and scoots himself seated on a walker. Patient was found to be in congestive heart failure and started on IV Lasix 20 mg every 8 hours. He has had 1100 ML's out. Patient feels like his shortness of breath is near his baseline. He has chronic lower extremity edema and wounds. EKG sinus rhythm with sinus arrhythmia, no acute ST changes Chest x-ray: Chronic changes without evidence of acute process. WBC 7.0, hemoglobin 10.1, platelet count 236. Sodium 135, potassium 3.5. Previous potassium 2.9 and has been replaced. BUN 24 and creatinine 1.5. Liver function tests are normal. Troponin negative 3. ProBNP 2320. Home cardiac medications: Atorvastatin 20 mg at bedtime, Farxiga, Lasix 80 mg daily, Xarelto 50 mg daily, Aldactone 25 mg daily. Echocardiogram 03/2023 revealed normal LV systolic function with EF of 50-55%, mitral calcification, aortic sclerosis. Cardiac catheter[address] De Luna revealed calcified proximal LAD, normal LV size and function. 07/17 Patient is seen today in follow-up. He states he is feeling much better. His breathing is improved as well as he has less lower extremity edema. Attending has changed his IV Lasix to oral to his baseline of 80 mg daily with anticipation of discharge to long-term today. Repeat blood work reveals potassium 4.2, BUN 22 and creatinine 1.46. Physical examination: Gen: This is a morbidly obese 72-year-old male. He is resting in bed and appears to be comfortable. No acute respiratory distress noted. VS: reviewed HEENT: Head is atraumatic, normocephalic. Pupils equal, round. Sclerae is anicteric. NECK: Supple. No JVD. LUNGS: Diminished bilaterally. No intercostal retractions. HEART: Regular rate and rhythm. No murmur. ABDOMEN: Soft tenderness to the right upper quadrant and left lower quadrant EXTREMITIES: 2+ pedal edema. Wounds to the bilateral pretibial areas NEUROLOGICAL: Patient is awake, alert and oriented x3. Assessment: Chest pain appears to be musculoskeletal Bilateral lower extremity wounds Acute on chronic diastolic heart failure Hypertensive cardiovascular disease Paroxysmal atrial fibrillation Obstructive sleep apnea Chronic hypoxic respiratory failure on home O2 Morbid obesity Asthma Plan: Continue patient on Lasix 80 mg oral daily Continue home cardiac medications Monitor I&O, daily weights, renal function and electrolytes No need to repeat echocardiogram as one was done in March of this year Once patient's respiratory status is stabilized, plan for outpatient stress testing at a later date. Patient is cleared from cardiology for discharge and may follow-up in the office in 2 weeks. Nurse practitioner note has been reviewed, I agree with documented findings and plan of care. Patient was seen and examined. Objective - Vital Signs Vital signs: Vital Signs Temp 98.1 F 07/17/23 03:27 Pulse 60 07/17/23 07:48 Resp 18 07/17/23 03:27 BP 95/60 07/17/23 03:27 Pulse Ox 97 07/17/23 03:27 FiO2 Intake & Output 07/16/23 07/17/23 07/17/23 18:59 06:59 18:59 Intake Total 354 Output Total 1250 325 Balance -896 -325 Weight 119.5 kg Intake: Oral 354 Output: Urine 1250 325 Other: Voiding Method Urinal Urinal # Voids 1 # Bowel Movements 1 - Labs CBC & Chem 7: 07/17/23 08:30 07/17/23 08:30 Labs: Abnormal Lab Results - Last 24 Hours (Table) 07/16/23 07/17/23 Range/Units 07:27 08:30 RBC 3.79 L (4.30-5.90) m/uL Hgb 9.7 L (13.0-17.5) gm/dL Hct 32.0 L (39.0-53.0) % MCHC 30.4 L (31.0-37.0) g/dL RDW 18.9 H (11.5-15.5) % HDL Cholesterol 27.60 L (40.00-60.00) mg/dL
[2023-07-17 11:39] VITALS: PULSE 69
[2023-07-17 12:56] VITALS: BP 103/57; RESP 20
== END 2023-07-17 14:59 | DRG 291 ==
LOC: EC 10:24 → 3SCARD 15:40
PROVIDERS: ADMIT Internal Medicine; ATTEND Internal Medicine
DX: I11.0 Hypertensive heart disease with heart failure (principal); I50.33 Acute on chronic diastolic (congestive) heart failure; J96.21 Acute and chronic respiratory failure with hypoxia; E66.2 Morbid (severe) obesity with alveolar hypoventilation; L97.911 Non-pressure chronic ulcer of unspecified part of right lower leg limited to breakdown of skin; L97.921 Non-pressure chronic ulcer of unspecified part of left lower leg limited to breakdown of skin; L03.116 Cellulitis of left lower limb; L03.115 Cellulitis of right lower limb; Z68.43 Body mass index [BMI] 50.0-59.9, adult; I83.009 Varicose veins of unspecified lower extremity with ulcer of unspecified site; J44.9 Chronic obstructive pulmonary disease, unspecified; I70.0 Atherosclerosis of aorta; I48.0 Paroxysmal atrial fibrillation; Z66 Do not resuscitate; G62.9 Polyneuropathy, unspecified; F32.A Depression, unspecified; E03.9 Hypothyroidism, unspecified; J45.40 Moderate persistent asthma, uncomplicated; N40.0 Benign prostatic hyperplasia without lower urinary tract symptoms; F41.1 Generalized anxiety disorder; I49.3 Ventricular premature depolarization; I87.8 Other specified disorders of veins; E87.6 Hypokalemia; Z60.2 Problems related to living alone; Z99.81 Dependence on supplemental oxygen; Z79.01 Long term (current) use of anticoagulants; E83.42 Hypomagnesemia; E78.5 Hyperlipidemia, unspecified; R07.89 Other chest pain; I34.81 Nonrheumatic mitral (valve) annulus calcification; R68.2 Dry mouth, unspecified; W01.0XXA Fall on same level from slipping, tripping and stumbling without subsequent striking against object, initial encounter; Z96.652 Presence of left artificial knee joint; Y92.003 Bedroom of unspecified non-institutional (private) residence as the place of occurrence of the external cause; Z59.89 Other problems related to housing and economic circumstances; Z82.49 Family history of ischemic heart disease and other diseases of the circulatory system; Z79.899 Other long term (current) drug therapy; Z79.84 Long term (current) use of oral hypoglycemic drugs; Z79.85 Long-term (current) use of injectable non-insulin antidiabetic drugs; Z87.891 Personal history of nicotine dependence
CPT/HCPCS: 36415; 71046; 80048; 80053; 80061; 83735; 83880; 84484; 85025; 85027; 85610; 85730; 93005; 94640; 96365; 96366; 96375; 99285

== ENCOUNTER 2023-08-06 23:44 | Inpatient (IN) | payer MEDICARE, BC ==
--- NOTE | 2023-08-07 00:03 | ED ---
Weakness HPI - General Chief complaint: Fall Stated complaint: FALL Time Seen by Provider: 08/06/23 23:46 Source: EMS, RN notes reviewed, old records reviewed Mode of arrival: EMS Limitations: no limitations - History of Present Illness Initial comments: This is a 74 male to the emergency department for evaluation. Patient presents today for evaluation of altered mental status decreased level responsiveness and they think may have fallen out of bed. No significant injury is noted per EMS but they think patient may have hit his head on the end table of his bed. Patient is brought in the ER as he was initially unresponsive but significantly hypoxic on EMS arrival. Patient remains a poor story but oxygen level is improving with supportive care MD Complaint: generalized weakness -: minutes(s) Location: generalized Severity: moderate, severe Severity scale (1-10): 10 Quality: constant Consistency: constant Improves with: none Worsens with: none Context: recent illness, trauma/injury, history of similar Associated Symptoms: confusion, shortness of breath - Related Data Home Medications Medication Instructions Recorded Confirmed allopurinoL [Zyloprim] 200 mg PO DAILY 11/02/14 08/07/23 Sertraline [Zoloft] 100 mg PO HS 04/04/17 08/07/23 Atorvastatin [Lipitor] 20 mg PO HS 07/14/19 08/07/23 Tamsulosin [Flomax] 0.4 mg PO DAILY 07/14/19 08/07/23 Ipratropium-Albuterol Nebulize 3 ml INHALATION RT-Q6H 08/19/19 08/07/23 [Duoneb 0.5 mg-3 mg/3 ml Soln] Acetaminophen Tab [Tylenol] 500 mg PO Q6H PRN 03/26/23 08/07/23 Cholecalciferol [Vitamin D3 (25 50 mcg PO DAILY 03/26/23 08/07/23 Mcg = 1000 Iu)] Dapagliflozin Propanediol [Farxiga] 5 mg PO DAILY 08/07/23 08/07/23 Magnesium Oxide [Mag-Ox] 400 mg PO DAILY 08/07/23 08/07/23 Montelukast [Singulair] 10 mg PO DAILY 08/07/23 08/07/23 Omeprazole [PriLOSEC] 20 mg PO DAILY 08/07/23 08/07/23 Tirzepatide [Mounjaro] 2.5 mg SQ MO 08/07/23 08/07/23 guaiFENesin [guaiFENesin ER] 600 mg PO BID 08/07/23 08/07/23 Previous Rx's Medication Instructions Recorded Baclofen [Lioresal] 10 mg PO BID PRN tab 03/31/23 Rivaroxaban [Xarelto] 15 mg PO W/SUPPER #30 tab 06/25/23 Benzonatate [Tessalon Perles] 200 mg PO TID PRN cap 07/17/23 Budesonide [Pulmicort] 1 mg INHALATION RT-BID ml 08/11/23 Furosemide [Lasix] 60 mg PO DAILY tab 08/11/23 Gabapentin [Neurontin] 300 mg PO HS #3 cap 08/11/23 Melatonin 10 mg PO HS PRN tab 08/11/23 Metoprolol Tartrate [Lopressor] 37.5 mg PO BID tab 08/11/23 Spironolactone [Aldactone] 12.5 mg PO DAILY tab 08/11/23 predniSONE [Deltasone] 40 mg PO DAILY tab 08/11/23 Allergies Allergy/AdvReac Type Severity Reaction Status Date / Time No Known Allergies Allergy Verified 07/15/23 13:56 Review of Systems ROS Statement: Those systems with pertinent positive or pertinent negative responses have been documented in the HPI. ROS Other: All systems not noted in ROS Statement are negative. Past Medical History Past Medical History: Asthma, Chest Pain / Angina, GERD/Reflux, Hyperlipidemia, Hypertension, Osteoarthritis (OA), Pneumonia, Sleep Apnea/CPAP/BIPAP Additional Past Medical History / Comment(s): uses oxygen at night 2L, gout, in wheelchair or walker due to pain in left leg, poor circulation in legs History of Any Multi-Drug Resistant Organisms: None Reported Past Surgical History: Orthopedic Surgery, Tonsillectomy Additional Past Surgical History / Comment(s): LEFT WRIST ORIF, LEFT KNEE REPLACEMENT, bilateral cataract surgery Past Anesthesia/Blood Transfusion Reactions: No Reported Reaction Additional Past Anesthesia/Blood Transfusion Reaction / Comment(s): . Past Psychological History: Depression Smoking Status: Former smoker Past Alcohol Use History: None Reported Past Drug Use History: None Reported - Past Family History Mother Family Medical History: Congestive Heart Failure (CHF), Osteoarthritis (OA) Father Additional Family Medical History / Comment(s): FROM [place] Brother(s) Family Medical History: Cancer Additional Family Medical History / Comment(s): . Sister(s) Family Medical History: Deep Vein Thrombosis (DVT) General Exam Limitations: no limitations General appearance: alert, in no apparent distress, anxious, in distress, obese Head exam: Present: atraumatic, normocephalic, normal inspection Eye exam: Present: normal appearance, PERRL, EOMI. Absent: scleral icterus, conjunctival injection, periorbital swelling ENT exam: Present: normal exam, mucous membranes moist Neck exam: Present: normal inspection. Absent: tenderness, meningismus, lymphadenopathy Respiratory exam: Present: normal lung sounds bilaterally. Absent: respiratory distress, wheezes, rales, rhonchi, stridor Cardiovascular Exam: Present: regular rate, normal rhythm, normal heart sounds. Absent: systolic murmur, diastolic murmur, rubs, gallop, clicks GI/Abdominal exam: Present: soft, normal bowel sounds. Absent: distended, tenderness, guarding, rebound, rigid Extremities exam: Present: normal inspection, full ROM, normal capillary refill. Absent: tenderness, pedal edema, joint swelling, calf tenderness Back exam: Present: normal inspection Neurological exam: Present: alert, oriented X3, CN II-XII intact Psychiatric exam: Present: normal affect, normal mood Skin exam: Present: warm, dry, intact, normal color. Absent: rash Course Vital Signs 08/06/23 08/07/23 08/07/23 23:46 00:00 00:52 Temperature 97.8 F Pulse Rate 68 65 64 Respiratory 22 20 Rate Blood Pressure 98/82 103/53 O2 Sat by Pulse 98 98 Oximetry 08/07/23 08/07/23 08/07/23 01:09 01:10 02:45 Temperature Pulse Rate 63 65 50 L Respiratory 22 18 Rate Blood Pressure 102/75 130/69 O2 Sat by Pulse 94 L 93 L Oximetry 08/07/23 03:28 Temperature 98 F Pulse Rate 70 Respiratory 22 Rate Blood Pressure 100/64 O2 Sat by Pulse 98 Oximetry - Reevaluation(s) Reevaluation #1: 08/07/23 02:36 Medical record is. Reviewed Reevaluation #2: 08/07/23 02:36 Patient symptoms are significantly improved with supportive care restaurant care here in the ER 08/07/23 02:37 Patient did need to be placed on BiPAP Reevaluation #3: 08/07/23 02:37 Patient informed results and questions answered Reevaluation #4: 08/07/23 02:37 Was pt. sent in by a medical professional or institution (MARIE Recio, TIP BANDING MACHINE OPERATOR, urgent care, hospital, or [facility]...) When possible be specific @ -no Did you speak to anyone other than the patient for history (EMS, parent, family, police, friend...)? What history was obtained from this source @ -no Did you review nursing and triage notes (agree or disagree)? Why? @ -agree Are old charts reviewed (outside hosp., previous admission, EMS record, old EKG, old radiological studies, urgent care reports/EKG's, [facility] records)? Report findings @ -yes Differential Diagnosis (chest pain, altered mental status, abdominal pain women, abdominal pain men, vaginal bleeding, weakness, fever, dyspnea, syncope, headache, dizziness, GI bleed, back pain, seizure, CVA, palpatations, mental he alth, musculoskeletal)? @ -prior EKG interpreted by me (3pts min.). @ -yes X-rays interpreted by me (1pt min.). @ -yes CT interpreted by me (1pt min.). @ -yes31 U/S interpreted by me (1pt. min.). @ -no What testing was considered but not performed or refused? (CT, X-rays, U/S, labs)? Why? @ -none What meds were considered but not given or refused? Why? @ -none Did you discuss the management of the patient with other professionals (professionals i.e. MARIE Recio, TIP BANDING MACHINE OPERATOR, lab, RT, psych nurse, social welfare administrator, caddy, teacher, foreign policy officer, case work aide)? Give summary @ -no Was smoking cessation discussed for >3mins.? @ -no Was critical care preformed (if so, how long)? @ -yes31 Were there social determinants of health that impacted care today? How? (Homelessness, low income, unemployed, alcoholism, drug addiction, transportation, low edu. Level, literacy, decrease access to med. care, prison, rehab)? @ -none Was there de-escalation of care discussed even if they declined (Discuss DNR or withdrawal of care, Hospice)? DNR status @ -no What co-morbidities impacted this encounter? (DM, HTN, Smoking, COPD, CAD, Cancer, CVA, ARF, Chemo, Hep., AIDS, mental health diagnosis, sleep apnea, morbid obesity)? @ -none Was patient admitted / discharged? Hospital course, mention meds given and route, prescriptions, significant lab abnormalities, going to OR and other pertinent info. @ - 72 male to the emergency room today for evaluation patient will be admitted on continued support, breathing treatments, BiPAP for significant hypoxia secondary to CHF and pulmonary edema causing acute respiratory failure Admitted Undiagnosed new problem with uncertain prognosis? @ -no Drug Therapy requiring intensive monitoring for toxicity (Heparin, Nitro, Insulin, Cardizem)? @ -no Were any procedures done? @ -no Diagnosis/symptom? @ -COPD CHF and hypoxia with respiratory failure Acute, or Chronic, or Acute on Chronic? @ -Acute Uncomplicated (without systemic symptoms) or Complicated (systemic symptoms)? @ -Complicated Side effects of treatment? @ -no Exacerbation, Progression, or Severe Exacerbation? @ -exacerbation Poses a threat to life or bodily function? How? (Chest pain, USA, CT, pneumonia, PE, COPD, DKA, ARF, appy, cholecystitis, CVA, Diverticulitis, Homicidal, Suicidal, threat to staff... and all critical care pts) @ -yes with severe comorbid conditions, hypoxia and respiratory failure Reevaluation #5: 08/07/23 02:37 Differential Dyspnea: Coronary syndrome, arrhythmia, tamponade, asthma, COPD, pulmonary embolism, pneumonia, pneumothorax, pulmonary effusion, anaphylaxis, diabetic ketoacidosis, flailed chest, pulmonary contusion, diaphragmatic rupture, anemia, neuromuscular, this is not meant to be an all-inclusive list. Differential Altered Mental Status: Hypoglycemia, DKA, hypercapnia, ETOH, overdose, CO poisoning, trauma, myxedema coma, HTN encephalopathy, infection, encephalitis, psychosis, intercranial hemorrhage, hepatic encephalopathy, meningitis, CVA, this is not meant to be an all-inclusive list Differential Weakness: Hypoglycemia, shock, sepsis, hyponatremia, anemia, infection, CT, ETOH, adverse medicine reaction, overdose, stroke, this is not meant to be an all-inclusive list. - Consultations Consultation #1: Spoke with Dr. Leon who agrees to admit this patient EKG Findings - EKG Comments: EKG Findings:: EKG is sinus 66 SD 167 QRS 112 QTc 462 - EKG Results: EKG: interpreted by ELISHA Medical Decision Making - Medical Decision Making 72 male to the emergency room today for evaluation patient will be admitted on continued support, breathing treatments, BiPAP for significant hypoxia secondary to CHF and pulmonary edema causing acute respiratory failure - Lab Data Result diagrams: 08/11/23 07:49 08/11/23 07:49 Lab Results 08/07/23 08/07/23 08/07/23 Range/Units 00:12 00:12 00:12 WBC 10.5 (3.8-10.6) k/uL RBC 3.52 L (4.30-5.90) m/uL Hgb 9.4 L (13.0-17.5) gm/dL Hct 30.2 L (39.0-53.0) % MCV 86.0 (80.0-100.0) fL MCH 26.8 (25.0-35.0) pg MCHC 31.2 (31.0-37.0) g/dL RDW 19.2 H (11.5-15.5) % Plt Count 174 (150-450) k/uL MPV 7.2 Neutrophils % 77 % Lymphocytes % 9 % Monocytes % 9 % Eosinophils % 3 % Basophils % 0 % Neutrophils # 8.1 H (1.3-7.7) k/uL Lymphocytes # 0.9 L (1.0-4.8) k/uL Monocytes # 0.9 (0-1.0) k/uL Eosinophils # 0.3 (0-0.7) k/uL Basophils # 0.0 (0-0.2) k/uL Hypochromasia Moderate Anisocytosis Slight PT 13.3 H (9.0-12.0) sec INR 1.3 H (<1.2) APTT 36.6 H (22.0-30.0) sec Sodium 138 (137-145) mmol/L Potassium 4.9 (3.5-5.1) mmol/L Chloride 103 (98-107) mmol/L Carbon Dioxide 25 (22-30) mmol/L Anion Gap 10 mmol/L BUN 41 H (9-20) mg/dL Creatinine 1.91 H (0.66-1.25) mg/dL Est GFR (CKD-EPI)AfAm 40 (>60 ml/min/1.73 sqM) Est GFR (CKD-EPI)NonAf 34 (>60 ml/min/1.73 sqM) Glucose 103 H (74-99) mg/dL Plasma Lactic Acid Shankar (0.7-2.0) mmol/L Calcium 8.9 (8.4-10.2) mg/dL Phosphorus 5.6 H (2.5-4.5) mg/dL Magnesium 2.1 (1.6-2.3) mg/dL Total Bilirubin 0.9 (0.2-1.3) mg/dL AST 31 (17-59) U/L ALT 16 (4-49) U/L Alkaline Phosphatase 161 H (38-126) U/L Troponin I (0.000-0.034) ng/mL NT-Pro-B Natriuret Pep 2820 pg/mL Total Protein 7.6 (6.3-8.2) g/dL Albumin 3.6 (3.5-5.0) g/dL 08/07/23 08/07/23 Range/Units 00:12 00:12 WBC (3.8-10.6) k/uL RBC (4.30-5.90) m/uL Hgb (13.0-17.5) gm/dL Hct (39.0-53.0) % MCV (80.0-100.0) fL MCH (25.0-35.0) pg MCHC (31.0-37.0) g/dL RDW (11.5-15.5) % Plt Count (150-450) k/uL MPV Neutrophils % % Lymphocytes % % Monocytes % % Eosinophils % % Basophils % % Neutrophils # (1.3-7.7) k/uL Lymphocytes # (1.0-4.8) k/uL Monocytes # (0-1.0) k/uL Eosinophils # (0-0.7) k/uL Basophils # (0-0.2) k/uL Hypochromasia Anisocytosis PT (9.0-12.0) sec INR (<1.2) APTT (22.0-30.0) sec Sodium (137-145) mmol/L Potassium (3.5-5.1) mmol/L Chloride (98-107) mmol/L Carbon Dioxide (22-30) mmol/L Anion Gap mmol/L BUN (9-20) mg/dL Creatinine (0.66-1.25) mg/dL Est GFR (CKD-EPI)AfAm (>60 ml/min/1.73 sqM) Est GFR (CKD-EPI)NonAf (>60 ml/min/1.73 sqM) Glucose (74-99) mg/dL Plasma Lactic Acid Shankar 0.9 (0.7-2.0) mmol/L Calcium (8.4-10.2) mg/dL Phosphorus (2.5-4.5) mg/dL Magnesium (1.6-2.3) mg/dL Total Bilirubin (0.2-1.3) mg/dL AST (17-59) U/L ALT (4-49) U/L Alkaline Phosphatase (38-126) U/L Troponin I <0.012 (0.000-0.034) ng/mL NT-Pro-B Natriuret Pep pg/mL Total Protein (6.3-8.2) g/dL Albumin (3.5-5.0) g/dL - EKG Data -: EKG Interpreted by Me - Radiology Data Radiology results: report reviewed (CT brain C-spine negative for traumatic inj ury chest x-rays positive for significant pulmonary edema), image reviewed Critical Care Time Critical Care Time: Yes Total Critical Care Time: 31 Disposition Clinical Impression: Fall, Acute exacerbation of chronic obstructive airways disease, High risk for readmission, CHF (congestive heart failure), Adult respiratory distress syndrome, Altered mental status, Hypoxia, Acute respiratory failure Disposition: ADMITTED IP TO THIS HOSP Condition: Fair Is patient prescribed a controlled substance at d/c from ED?: No Time of Disposition: 02:30
[2023-08-07] MEDS ORDERED: IPRATROPIUM-ALBUTEROL 3 ML NEB INHALATION STA (00:06)
[2023-08-07 00:58] LABS: NT-Pro-B-Type Natriuretic Pept 2820 pg/mL
--- NOTE | 2023-08-07 01:12 | XR ---
EXAM: XR Chest, 1 View CLINICAL HISTORY: ITS.REASON XR Reason: fall TECHNIQUE: Frontal view of the chest. COMPARISON: No relevant prior studies available. IMPRESSION: Cardiomegaly. Severe pulmonary edema Trace effusion
[2023-08-07 01:24] LABS: ALT 16 U/L (4-49); AST 31 U/L (17-59); African American GFR (CKD) 40 (>60 ml/min/1.73 sqM); Albumin 3.6 g/dL (3.5-5.0); Alkaline Phosphatase 161 U/L (38-126); Anion Gap 10 mmol/L; Blood Urea Nitrogen 41 mg/dL (9-20); Calcium 8.9 mg/dL (8.4-10.2); Carbon Dioxide 25 mmol/L (22-30); Chloride 103 mmol/L (98-107); Glucose 103 mg/dL (74-99); Magnesium 2.1 mg/dL (1.6-2.3); Non-African American GFR(CKD) 34 (>60 ml/min/1.73 sqM); Phosphorus 5.6 mg/dL (2.5-4.5); Potassium 4.9 mmol/L (3.5-5.1); Sodium 138 mmol/L (137-145); Total Bilirubin 0.9 mg/dL (0.2-1.3); Total Protein 7.6 g/dL (6.3-8.2)
--- NOTE | 2023-08-07 01:26 | CT ---
EXAM: CT Head Without Intravenous Contrast CLINICAL HISTORY: ITS.REASON CT Reason: n TECHNIQUE: Axial computed tomography images of the head/brain without intravenous contrast. CTDI is 45.2 mGy and DLP is 1131 mGy-cm. This CT exam was performed using one or more of the following dose reduction techniques: automated exposure control, adjustment of the mA and/or kV according to patient size, and/or use of iterative reconstruction technique. COMPARISON: No relevant prior studies available. FINDINGS: Brain: No hemorrhage or mass effect. Senescent changes. Ventricles: No hydrocephalus. Bones/joints: Unremarkable. Soft tissues: Unremarkable. Sinuses: No air fluid level. Mastoid air cells: Clear. IMPRESSION: No acute hemorrhage, hydrocephalus, or mass effect. EXAM: CT Cervical Spine Without Intravenous Contrast CLINICAL HISTORY: ITS.REASON CT Reason: n TECHNIQUE: Axial computed tomography images of the cervical spine without intravenous contrast. CTDI is 54.6 mGy and DLP is 1503.2 mGy-cm. This CT exam was performed using one or more of the following dose reduction techniques: automated exposure control, adjustment of the mA and/or kV according to patient size, and/or use of iterative reconstruction technique. COMPARISON: No relevant prior studies available. FINDINGS: Vertebrae: No acute fracture. Discs/spinal canal/neural foramina: degenerative changes. Soft tissues: No prevertebral swelling. IMPRESSION: No acute fracture or subluxation.
[2023-08-07 01:31] LABS: Anisocytosis Slight; Basophils % (A) 0 %; Eosinophils # (A) 0.3 k/uL (0-0.7); Eosinophils % (A) 3 %; HCT 30.2 % (39.0-53.0); HGB 9.4 gm/dL (13.0-17.5); Hypochromasia Moderate; Lymphocytes # (A) 0.9 k/uL (1.0-4.8); Lymphocytes % (A) 9 %; MCH 26.8 pg (25.0-35.0); MCHC 31.2 g/dL (31.0-37.0); Mean Platelet Volume 7.2; Monocytes # (A) 0.9 k/uL (0-1.0); Monocytes % (A) 9 %; Neutrophils # (A) 8.1 k/uL (1.3-7.7); Neutrophils % (A) 77 %; Platelet Count 174 k/uL (150-450); RBC 3.52 m/uL (4.30-5.90); RDW 19.2 % (11.5-15.5); WBC 10.5 k/uL (3.8-10.6)
[2023-08-07 01:38] LABS: INR 1.3 (<1.2); Partial Thromboplastin Time 36.6 sec (22.0-30.0); Prothrombin Time 13.3 sec (9.0-12.0)
[2023-08-07] MEDS ORDERED: NALOXONE 0.4 MG/ML 1 ML VIAL IV PRN (02:18)
[2023-08-07] MEDS ORDERED: FUROSEMIDE 10 MG/ML 10 ML VIAL IV STA (02:18)
[2023-08-07] MEDS ORDERED: ONDANSETRON 4 MG/2 ML VIAL IVP PRN (02:18)
[2023-08-07] MEDS ORDERED: MORPHINE SULFATE 2 MG/ML SYRINGE IVP STA (02:41)
[2023-08-07] MEDS ORDERED: LORazepam 2 MG/ML INJ IV PRN (02:41)
[2023-08-07] MEDS ORDERED: ALBUTEROL NEBULIZED 2.5 MG/3 ML INHALATION PRN (04:00)
[2023-08-07 04:26] LABS: ABG Base Excess 0.4 mmol/L; ABG HCO3 26 mmol/L (21-25); ABG PCO2 50 mmHg (35-45); ABG PH 7.33 (7.35-7.45); ABG PO2 99 mmHg (83-108); ABG TCO2 28 mmol/L (19-24); Allen Test Performed? Yes
[2023-08-07 04:34] LABS: ABG Oxygen Saturation 96.7 % (94-97)
--- NOTE | 2023-08-07 05:30 | P.CNPUL ---
History of Present Illness Consult date: 08/07/23 Requesting physician: Vinayak Tello Reason for consult: dyspnea Chief complaint: Fall, Shortness of breath History of present illness: I am seeing this patient today 08/07/2023 in the emergency room after he was found to be confused and fell at his [facility] late last night. Patient is a 72-year- old white male with past medical history significant for multiple hospital readmissions for diastolic congestive heart failure, paroxysmal atrial fibrillation anticoagulated on Xarelto, lower extremity cellulitis, morbid obesity, obstructive sleep apnea maintained on CPAP at bedtime, chronic oxygen dependence on 2 L nasal cannula, chronic bronchial asthma, hypertension, hyperlipidemia, and is a remote ex-smoker of over 30 years ago. He did have a recent hospital admission earlier this month for CHF exacerbation. Patient is currently a poor historian, he is confused and not cooperative with care. Apparently, he was brought in by EMS from [facility] after being found confused with decreased level of consciousness. There is concerns that he may have fallen out of bed and hit his head. On arrival to the emergency room, a CT of the head showed no acute intracranial process. No hemorrhage or mass effect. He was found to be hypoxic, and placed on BiPAP with settings 12/6 and FiO2 of 36%. When I came down to examine this patient, he was refusing BiPAP, and on 4 L/m nasal cannula. He is drowsy and oriented to place and self. He is able to provide minimal amount of information. He does not recall falling. He denies any cough, fevers, chills, myalgias. He denies any chest pain, heart palpitations. Chest x-ray on arrival was consistent with exacerbation of diastolic congestive heart failure. There is cardiomegaly, trace bilateral pleural effusions, and pulmonary edema. Patient has already be given a one-time dose of Lasix. He is currently wearing a brief. He does have significant lower extremity edema. There are multiple ulcerations especially on his right leg, and venous stasis changes. CBC on arrival showed a WBC count of 10.5, hemoglobin 9.4, hematocrit 30.2, platelets 174. BMP shows sodium 138, potassium 4.9, chloride 103, serum bicarb 25, BUN 41, creatinine 1.91, glucose 103. Troponins less than 0.012. NT proBNP elevated at 2820. ECG shows normal sinus rhythm without any obvious acute ischemic changes. I did professor of counseling the patient on the need for BiPAP therapy at this time, he is agreeable to wear the BiPAP for now. Respiratory rate of 16, achieving tidal volumes around 500. He is full code. Patient will be monitored on the cardiac stepdown unit. Review of Systems REVIEW OF SYSTEMS: CONSTITUTIONAL: Denies any recent significant weight loss or weight gain. EYES: Denies change in vision. EARS, NOSE, MOUTH, THROAT: Denies headaches, denies sore throat. CARDIOVASCULAR: Denies chest pain, palpitations or syncopal episodes. RESPIRATORY: See HPI GASTROINTESTINAL: Denies change in appetite, abdominal pain, nausea and vomiting, or diarrhea GENITOURINARY: Denies hematuria, denies infections. MUSKULOSKELETAL: Denies pain, denies swelling. INTEGUMENTARY: Denies rash, denies eczema. NEUROLOGICAL: Denies recent memory loss, no recent seizure activity. PSYCHIATRIC: Denies anxiety, denies depression. HEMATOLOGIC/LYMPHATIC: Denies anemia, denies enlarged lymph node Past Medical History Past Medical History: Asthma, Chest Pain / Angina, GERD/Reflux, Hyperlipidemia, Hypertension, Osteoarthritis (OA), Pneumonia, Sleep Apnea/CPAP/BIPAP Additional Past Medical History / Comment(s): uses oxygen at night 2L, gout, in wheelchair or walker due to pain in left leg, poor circulation in legs History of Any Multi-Drug Resistant Organisms: None Reported Past Surgical History: Orthopedic Surgery, Tonsillectomy Additional Past Surgical History / Comment(s): LEFT WRIST ORIF, LEFT KNEE REPLACEMENT, bilateral cataract surgery Past Anesthesia/Blood Transfusion Reactions: No Reported Reaction Additional Past Anesthesia/Blood Transfusion Reaction / Comment(s): . Past Psychological History: Depression Smoking Status: Former smoker Past Alcohol Use History: None Reported Past Drug Use History: None Reported - Past Family History Mother Family Medical History: Congestive Heart Failure (CHF), Osteoarthritis (OA) Father Additional Family Medical History / Comment(s): FROM [place] Brother(s) Family Medical History: Cancer Additional Family Medical History / Comment(s): . Sister(s) Family Medical History: Deep Vein Thrombosis (DVT) Medications and Allergies Home Medications Medication Instructions Recorded Confirmed Type Metoprolol Tartrate 25 mg PO BID 11/02/14 07/15/23 History allopurinoL [Zyloprim] 200 mg PO DAILY 11/02/14 07/15/23 History Montelukast [Singulair] 10 mg PO HS #30 tab 11/07/14 07/15/23 Rx Sertraline [Zoloft] 100 mg PO DAILY 04/04/17 07/15/23 History Atorvastatin [Lipitor] 20 mg PO HS 07/14/19 07/15/23 History Spironolactone [Aldactone] 25 mg PO DAILY 07/14/19 07/15/23 History Tamsulosin [Flomax] 0.4 mg PO DAILY 07/14/19 07/15/23 History Ipratropium-Albuterol Nebulize 3 ml INHALATION RT-Q6H 08/19/19 07/15/23 History [Duoneb 0.5 mg-3 mg/3 ml Soln] Acetaminophen Tab [Tylenol] 500 mg PO Q6H PRN 03/26/23 07/15/23 History Cholecalciferol [Vitamin D3 (25 50 mcg PO DAILY 03/26/23 07/15/23 History Mcg = 1000 Iu)] Pantoprazole [Protonix] 40 mg PO DAILY 03/26/23 07/15/23 History Potassium Chloride ER [K-Dur 20] 20 meq PO BID 03/26/23 07/15/23 History Baclofen [Lioresal] 10 mg PO BID PRN tab 03/31/23 07/15/23 Rx SILVER sulfADIAZINE Cream 1 applic TOPICAL DAILY each 03/31/23 07/15/23 Rx [Silvadene 1% Cream] Rivaroxaban [Xarelto] 15 mg PO W/SUPPER #30 tab 06/25/23 07/15/23 Rx Cephalexin [Keflex] 500 mg PO Q8HR 10 Days #30 cap 07/09/23 07/15/23 Rx Furosemide [Lasix] 80 mg PO DAILY #0 07/09/23 07/15/23 Rx Dapagliflozin Propanediol [Farxiga] 10 mg PO DIRECTED 07/15/23 07/15/23 History Benzonatate [Tessalon Perles] 200 mg PO TID PRN cap 07/17/23 Rx Gabapentin [Neurontin] 300 mg PO HS #3 cap 07/17/23 Rx Allergies Allergy/AdvReac Type Severity Reaction Status Date / Time No Known Allergies Allergy Verified 07/15/23 13:56 Physical Exam Vitals: Vital Signs Temp Pulse Resp BP Pulse Ox 08/07/23 02:45 50 L 18 130/69 93 L 08/07/23 01:10 65 22 102/75 94 L 08/07/23 01:09 63 08/07/23 00:52 64 08/07/23 00:00 65 20 103/53 98 08/06/23 23:46 97.8 F 68 22 98/82 98 Intake and Output 08/06/23 08/06/23 08/07/23 14:59 22:59 06:59 Other: Weight 125.191 kg GENERAL EXAM: Drowsy, awakens and answers questions but then falls back asleep without stimulation, morbidly obese 72-year-old white male, in no obvious d istress. HEAD: Normocephalic and atraumatic EYES: Normal reaction of pupils, equal size. NOSE: Clear with pink turbinates. THROAT: No erythema or exudates. NECK: No masses, no JVD. CHEST: No chest wall deformity. LUNGS: Equal air entry with bibasilar inspiratory crackles. There are mild expiratory wheezes throughout. On BiPAP with settings of 12/6 and FiO2 of 36%. No conversational dyspnea or accessory muscle use.. CVS: S1 and S2 normal with no audible murmur, regular rhythm. No extra heart so unds ABDOMEN: Obese abdomen, no hepatosplenomegaly, active bowel sounds, no guarding or rigidity. SPINE: No scoliosis or deformity SKIN: Bilateral lower extremity venous stasis changes with ulcerations of his right lower extremity especially CENTRAL NERVOUS SYSTEM: No focal deficits, tone is normal in all 4 extremities. EXTREMITIES: There is bilateral lower extremity pitting edema 1-2+. No clubb ing, or cyanosis. Peripheral pulses are intact. Results - Laboratory Findings CBC and BMP: 08/07/23 00:12 08/07/23 00:12 PT/INR, D-dimer PT 13.3 sec (9.0-12.0) H 08/07/23 00:12 INR 1.3 (<1.2) H 08/07/23 00:12 Abnormal lab findings: Abnormal Labs 08/07/23 08/07/23 08/07/23 00:12 00:12 00:12 RBC 3.52 L Hgb 9.4 L Hct 30.2 L RDW 19.2 H Neutrophils # 8.1 H Lymphocytes # 0.9 L PT 13.3 H INR 1.3 H APTT 36.6 H BUN 41 H Creatinine 1.91 H Glucose 103 H Phosphorus 5.6 H Alkaline Phosphatase 161 H - Diagnostic Findings Chest x-ray: image reviewed Assessment and Plan Assessment: Acute exacerbation of diastolic congestive heart failure, chest x-ray on admission shows cardiomegaly, bilateral small pleural effusions, and pulmonary edema. NT proBNP elevated at 2820. Most recent echocardiogram from March, showed a preserved left ventricular ejection fraction of 50-55%, and was otherwise a limited exam. Mild exacerbation of chronic bronchial asthma Acute on chronic hypoxemic and hypercapnic respiratory failure, secondary to above, currently on BiPAP Acute kidney injury, possibly cardiorenal Suspect acute metabolic encephalopathy, secondary to a combination of hypoxemia and hypercapnic respiratory failure Anemia of chronic disease Frequent falls Obstructive sleep apnea, usually maintained on CPAP at bedtime Morbid obesity, with a BMI of 39.6 kg/m Chronic hypoxemic respiratory failure, normally on 2 L/m nasal cannula Chronic venous stasis of lower extremities Paroxysmal atrial fibrillation, normally anticoagulated on Xarelto, currently in normal sinus rhythm Benign essential hypertension Hyperlipidemia Remote ex-smoker of over 20 years ago. Plan: Patient's medications, labs, chest x-ray reviewed Continue with BiPAP as tolerated. Follow-up ABG on current BiPAP settings shows a pO2 of 99, pCO2 of 50, pH of 7.33 Agree with diuresis, continue Lasix 40 mg twice a day Measure accurate intake and output Start patient on combination of DuoNeb's, budesonide, formoterol, IV Solu-Medrol Fall precautions Patient is going to be admitted to the cardiac stepdown unit once bed available We will continue to follow and make recommendations I have personally seen and examined the patient, performed the documentation and the assessment and plan as written. Number of minutes spent on the visit:20 Time with Patient: Greater than 30
[2023-08-07 06:22] LABS: Glucose,Whole Blood 105 mg/dL (70-110)
[2023-08-07] MEDS: FORMOTEROL FUMARATE 20 MCG/2 ML NEBU INHALATION SCH ×2 (07:41→20:21)
[2023-08-07] MEDS: BUDESONIDE 1 MG/2 ML NEBU INHALATION SCH ×2 (07:41→20:24)
[2023-08-07] MEDS: IPRATROPIUM-ALBUTEROL 3 ML NEB INHALATION SCH ×5 (07:41→20:24)
[2023-08-07] MEDS: methylPREDNISolone SOD SUCCI 125 MG/2 ML VIAL IV SCH ×3 (07:46→17:29)
[2023-08-07] MEDS: FUROSEMIDE 10 MG/ML 4 ML VIAL IV SCH ×2 (10:05→21:53)
--- NOTE | 2023-08-07 10:10 | P.CRDCN ---
History of Present Illness History of present illness: HISTORY OF PRESENT ILLNESS: This is a 72-year-old male with a past medical history significant for chronic hypoxic respiratory failure on home oxygen, hypertension, hyperlipidemia, obstructive sleep apnea, paroxysmal atrial fibrillation, and morbid obesity. Patient used to follow in the office with Dr. Lamb but has not been seen since May 2018. We have been asked to see the patient in consultation for congestive heart failure. Patient examined at the bedside. The patient was brought to the hospital from [facility] secondary to altered mental status and leth argy. The patient was found to be in acute congestive heart failure and was started on IV Lasix. The patient is lethargic at the time of examination. He is unable to give any history. He is on a bipap at the time of examination. * EKG reveals sinus mechanism with no signs of acute ischemia * Chest xray cardiomegaly. Severe pulmonary edema. Trace effusions. * Laboratory data: WBC 10.5. Hemoglobin 9.4. Platelet count 174. Sodium 138. Potassium 4.9. BUN 41. Creatinine 1.91. Magnesium 2.1. Troponin negative 2. ProBNP 2820. * Current home cardiac medications include Lipitor 20 mg at night, Aldactone 25 mg daily, Lasix 80 mg daily, metoprolol tartrate 25 mg twice a day, Xarelto 15 mg at dinner * Most recent echocardiogram obtained in March 2023 revealed ejection fraction 50-55%, mild tricuspid regurgitation * Cardiac catheterization history: 2016 revealed calcified proximal LAD, normal LV size and function REVIEW OF SYSTEMS: At the time of my exam: Unable to obtain secondary to altered mental status PHYSICAL EXAM: VITAL SIGNS: Reviewed. GENERAL: Well-developed in no acute distress. HEENT: Head is normocephalic. Pupils are equal, round. Sclerae anicteric. Mucous membranes of the mouth are moist. Neck supple. No JVD or thyromegaly LUNGS: Respirations even and unlabored. Lungs diminished bilaterally with crackles noted HEART: Regular rate and rhythm. S1 and S2 heard. ABDOMEN: Soft. Nondistended. Nontender. EXTREMITIES: Normal range of motion. No clubbing or cyanosis. Peripheral pulses intact. Minimal lower extremity edema NEUROLOGIC: Lethargic ASSESSMENT: Altered mental status Shortness of breath Acute on chronic heart failure with preserved LV systolic function, 50-55% Mild exacerbation of chronic bronchial asthma Acute kidney injury Chronic hypoxic respiratory failure on home oxygen Paroxysmal atrial fibrillation Obstructive sleep apnea Hypertension Hyperlipidemia PLAN: No need to repeat echo as this was performed in March 2023 Continue IV Lasix Daily weights, accurate I&O, and monitoring of kidney function Continue additional cardiac medications Pulmonary following Further recommendations pending patient course Nurse practitioner note has been reviewed by physician. Signing provider agrees with the documented findings, assessment, and plan of care. Past Medical History Past Medical History: Asthma, Chest Pain / Angina, GERD/Reflux, Hyperlipidemia, Hypertension, Osteoarthritis (OA), Pneumonia, Sleep Apnea/CPAP/BIPAP Additional Past Medical History / Comment(s): uses oxygen at night 2L, gout, in wheelchair or walker due to pain in left leg, poor circulation in legs History of Any Multi-Drug Resistant Organisms: None Reported Past Surgical History: Orthopedic Surgery, Tonsillectomy Additional Past Surgical History / Comment(s): LEFT WRIST ORIF, LEFT KNEE REPLACEMENT, bilateral cataract surgery Past Anesthesia/Blood Transfusion Reactions: No Reported Reaction Additional Past Anesthesia/Blood Transfusion Reaction / Comment(s): . Past Psychological History: Depression Additional Psychological History / Comment(s): Patient states he has slight confusion / memory loss. Smoking Status: Former smoker Past Alcohol Use History: None Reported Additional Past Alcohol Use History / Comment(s): . Past Drug Use History: None Reported - Past Family History Mother Family Medical History: Congestive Heart Failure (CHF), Osteoarthritis (OA) Father Additional Family Medical History / Comment(s): FROM [place] Brother(s) Family Medical History: Cancer Additional Family Medical History / Comment(s): . Sister(s) Family Medical History: Deep Vein Thrombosis (DVT) Medications and Allergies Home Medications Medication Instructions Recorded Confirmed Type Metoprolol Tartrate 25 mg PO BID 11/02/14 08/07/23 History allopurinoL [Zyloprim] 200 mg PO DAILY 11/02/14 08/07/23 History Sertraline [Zoloft] 100 mg PO HS 04/04/17 08/07/23 History Atorvastatin [Lipitor] 20 mg PO HS 07/14/19 08/07/23 History Spironolactone [Aldactone] 25 mg PO DAILY 07/14/19 08/07/23 History Tamsulosin [Flomax] 0.4 mg PO DAILY 07/14/19 08/07/23 History Ipratropium-Albuterol Nebulize 3 ml INHALATION RT-Q6H 08/19/19 08/07/23 History [Duoneb 0.5 mg-3 mg/3 ml Soln] Acetaminophen Tab [Tylenol] 500 mg PO Q6H PRN 03/26/23 08/07/23 History Cholecalciferol [Vitamin D3 (25 50 mcg PO DAILY 03/26/23 08/07/23 History Mcg = 1000 Iu)] Potassium Chloride ER [K-Dur 20] 20 meq PO BID 03/26/23 08/07/23 History Baclofen [Lioresal] 10 mg PO BID PRN tab 03/31/23 08/07/23 Rx SILVER sulfADIAZINE Cream 1 applic TOPICAL DAILY each 03/31/23 08/07/23 Rx [Silvadene 1% Cream] Rivaroxaban [Xarelto] 15 mg PO W/SUPPER #30 tab 06/25/23 08/07/23 Rx Furosemide [Lasix] 80 mg PO DAILY #0 07/09/23 08/07/23 Rx Benzonatate [Tessalon Perles] 200 mg PO TID PRN cap 07/17/23 08/07/23 Rx Gabapentin [Neurontin] 300 mg PO HS #3 cap 07/17/23 08/07/23 Rx Dapagliflozin Propanediol [Farxiga] 5 mg PO DAILY 08/07/23 08/07/23 History Magnesium Oxide [Mag-Ox] 400 mg PO DAILY 08/07/23 08/07/23 History Melatonin 10 mg PO HS PRN 08/07/23 08/07/23 History Montelukast [Singulair] 10 mg PO DAILY 08/07/23 08/07/23 History Moxifloxacin HCl [Avelox] 400 mg PO HS 08/07/23 08/07/23 History Omeprazole [PriLOSEC] 20 mg PO DAILY 08/07/23 08/07/23 History Tirzepatide [Mounjaro] 2.5 mg SQ MO 08/07/23 08/07/23 History guaiFENesin [guaiFENesin ER] 600 mg PO BID 08/07/23 08/07/23 History Allergies Allergy/AdvReac Type Severity Reaction Status Date / Time No Known Allergies Allergy Verified 07/15/23 13:56 Physical Exam Vitals: Vital Signs Temp Pulse Resp BP Pulse Ox FiO2 08/07/23 07:41 60 36 08/07/23 04:11 36 08/07/23 03:28 98 F 70 22 100/64 98 08/07/23 02:45 50 L 18 130/69 93 L 08/07/23 01:10 65 22 102/75 94 L 08/07/23 01:09 63 08/07/23 00:52 64 08/07/23 00:00 65 20 103/53 98 08/06/23 23:46 97.8 F 68 22 98/82 98 Intake and Output 08/06/23 08/07/23 08/07/23 22:59 06:59 14:59 Output Total 750 Balance -750 Output: Urine 750 Uretheral (Lynn) 350 Other: # Voids 1 Weight 126 kg Results 08/07/23 00:12 08/07/23 00:12 Cardiac Enzymes 08/07/23 08/07/23 08/07/23 Range/Units 00:12 00:12 04:34 AST 31 (17-59) U/L Troponin I <0.012 <0.012 (0.000-0.034) ng/mL Coagulation 08/07/23 Range/Units 00:12 PT 13.3 H (9.0-12.0) sec APTT 36.6 H (22.0-30.0) sec CBC 08/07/23 Range/Units 00:12 WBC 10.5 (3.8-10.6) k/uL RBC 3.52 L (4.30-5.90) m/uL Hgb 9.4 L (13.0-17.5) gm/dL Hct 30.2 L (39.0-53.0) % Plt Count 174 (150-450) k/uL Comprehensive Metabolic Panel 08/07/23 Range/Units 00:12 Sodium 138 (137-145) mmol/L Potassium 4.9 (3.5-5.1) mmol/L Chloride 103 (98-107) mmol/L Carbon Dioxide 25 (22-30) mmol/L BUN 41 H (9-20) mg/dL Creatinine 1.91 H (0.66-1.25) mg/dL Glucose 103 H (74-99) mg/dL Calcium 8.9 (8.4-10.2) mg/dL AST 31 (17-59) U/L ALT 16 (4-49) U/L Alkaline Phosphatase 161 H (38-126) U/L Total Protein 7.6 (6.3-8.2) g/dL Albumin 3.6 (3.5-5.0) g/dL Current Medications Generic Name Dose Route Start Last Admin Trade Name Freq PRN Reason Stop Dose Admin Albuterol Sulfate 2.5 mg 08/07/23 04:00 Albuterol Nebulized 2.5 Mg/3 Ml INHALATION RT-Q4H PRN Shortness Of Breath Or Wheezing Albuterol/Ipratropium 3 ml 08/07/23 08:00 08/07/23 07:41 Ipratropium-Albuterol 3 Ml Neb INHALATION 3 ml RT-QID JENNIFER Administration Budesonide 1 mg 08/07/23 08:00 08/07/23 07:41 Budesonide 1 Mg/2 Ml Nebu INHALATION 1 mg RT-BID JENNIFER Administration Formoterol Fumarate 20 mcg 08/07/23 08:00 08/07/23 07:41 Formoterol Fumarate 20 Mcg/2 Ml Nebu INHALATION 20 mcg RT-BID JENNIFER Administration Furosemide 40 mg 08/07/23 09:00 Furosemide 10 Mg/Ml 4 Ml Vial IV Q12HR JENNIFER Lorazepam 0.5 mg 08/07/23 02:41 Lorazepam 2 Mg/Ml Inj IV Q6HR PRN Anxiety Methylprednisolone Sodium Succinate 60 mg 08/07/23 06:00 08/07/23 07:46 Methylprednisolone Sod Succi 125 Mg/2 Ml Vial IV 60 mg Q6HR JENNIFER Administration Morphine Sulfate 4 mg 08/07/23 02:18 Morphine Sulfate 4 Mg/Ml Syringe IV Q4HR PRN Severe Pain (Scale 7 to 10) Naloxone HCl 0.2 mg 08/07/23 02:18 Naloxone 0.4 Mg/Ml 1 Ml Vial IV Q2M PRN Opioid Reversal Ondansetron HCl 4 mg 08/07/23 02:18 Ondansetron 4 Mg/2 Ml Vial IVP Q8HR PRN Nausea And Vomiting Intake and Output 08/06/23 08/07/23 08/07/23 22:59 06:59 14:59 Output Total 750 Balance -750 Output: Urine 750 Uretheral (Lynn) 350 Other: # Voids 1 Weight 126 kg 08/07/23 00:12 08/07/23 00:12
[2023-08-07 11:32] LABS: Glucose,Whole Blood 110 mg/dL (70-110)
[2023-08-07 11:35] VITALS: BMI 39.8
[2023-08-07] MEDS ORDERED: BENZONATATE 100 MG CAP PO PRN (12:54)
[2023-08-07] MEDS ORDERED: BACLOFEN 10 MG TAB PO PRN (12:54)
[2023-08-07 16:26] LABS: Glucose,Whole Blood 223 mg/dL (70-110)
[2023-08-07] MEDS: RIVAROXABAN 15 MG TAB PO SCH (17:28)
[2023-08-07] MEDS: allopurinoL 100 MG TAB PO SCH (17:28)
[2023-08-07] MEDS: INSULIN ASPART (NovoLOG) 100 UNIT/ML VIAL SQ SCH ×2 (17:37→21:55)
[2023-08-07 19:59] LABS: Glucose,Whole Blood 151 mg/dL (70-110)
[2023-08-07] MEDS: LEVOFLOXACIN 750 MG TAB PO SCH (21:53)
[2023-08-07] MEDS: ATORVASTATIN 20 MG TAB PO SCH (21:53)
[2023-08-07] MEDS: METOPROLOL TARTRATE 25 MG TAB PO SCH (21:53)
[2023-08-07] MEDS: SERTRALINE 100 MG TAB PO SCH (21:53)
[2023-08-07] MEDS: guaiFENesin 600 MG TABLET.ER PO SCH (21:53)
[2023-08-07] MEDS: MELATONIN 5 MG TABLET PO PRN (21:53)
[2023-08-07] MEDS: GABAPENTIN 300 MG CAP PO SCH (21:53)
[2023-08-07] MEDS: POTASSIUM CHLORIDE ER 20 MEQ TAB.ER PO SCH (21:53)
[2023-08-07] MEDS: MORPHINE SULFATE 4 MG/ML SYRINGE IV PRN (21:54)
[2023-08-08] MEDS: methylPREDNISolone SOD SUCCI 125 MG/2 ML VIAL IV SCH ×3 (01:46→12:37)
[2023-08-08 06:14] LABS: Glucose,Whole Blood 139 mg/dL (70-110)
[2023-08-08] MEDS: INSULIN ASPART (NovoLOG) 100 UNIT/ML VIAL SQ SCH ×4 (06:35→20:56)
[2023-08-08 08:02] LABS: Anisocytosis Slight; Basophils % (A) 0 %; Eosinophils % (A) 0 %; HCT 29.1 % (39.0-53.0); HGB 8.8 gm/dL (13.0-17.5); Hypochromasia Marked; Lymphocytes # (A) 0.7 k/uL (1.0-4.8); Lymphocytes % (A) 6 %; MCH 26.7 pg (25.0-35.0); MCHC 30.4 g/dL (31.0-37.0); MCV 87.9 fL (80.0-100.0); Mean Platelet Volume 7.8; Monocytes # (A) 0.4 k/uL (0-1.0); Monocytes % (A) 4 %; Neutrophils # (A) 9.6 k/uL (1.3-7.7); Neutrophils % (A) 89 %; Platelet Count 177 k/uL (150-450); RBC 3.32 m/uL (4.30-5.90); WBC 10.9 k/uL (3.8-10.6)
[2023-08-08 08:25] LABS: ALT 18 U/L (4-49); AST 31 U/L (17-59); African American GFR (CKD) 37 (>60 ml/min/1.73 sqM); Albumin 3.6 g/dL (3.5-5.0); Alkaline Phosphatase 147 U/L (38-126); Anion Gap 9 mmol/L; Blood Urea Nitrogen 52 mg/dL (9-20); Calcium 8.9 mg/dL (8.4-10.2); Carbon Dioxide 26 mmol/L (22-30); Chloride 103 mmol/L (98-107); Glucose 127 mg/dL (74-99); Magnesium 2.2 mg/dL (1.6-2.3); Non-African American GFR(CKD) 32 (>60 ml/min/1.73 sqM); Phosphorus 6.4 mg/dL (2.5-4.5); Potassium 5.5 mmol/L (3.5-5.1); Sodium 138 mmol/L (137-145); Total Bilirubin 0.7 mg/dL (0.2-1.3); Total Protein 7.3 g/dL (6.3-8.2)
[2023-08-08] MEDS: TAMSULOSIN 0.4 MG CAP.ER.24H PO SCH (08:35)
[2023-08-08] MEDS: PANTOPRAZOLE 40 MG TABLET PO SCH (08:35)
[2023-08-08] MEDS: guaiFENesin 600 MG TABLET.ER PO SCH ×2 (08:35→20:56)
[2023-08-08] MEDS: DAPAGLIFLOZIN PROPANEDIOL 5 MG TABLET PO SCH (08:35)
[2023-08-08] MEDS: POTASSIUM CHLORIDE ER 20 MEQ TAB.ER PO SCH (08:35)
[2023-08-08] MEDS: CHOLECALCIFEROL 25 MCG (1000 IU) TABLET PO SCH (08:35)
[2023-08-08] MEDS: MONTELUKAST 10 MG TAB PO SCH (08:35)
[2023-08-08] MEDS: FUROSEMIDE 10 MG/ML 4 ML VIAL IV SCH ×2 (08:36→20:56)
[2023-08-08] MEDS: METOPROLOL TARTRATE 25 MG TAB PO SCH ×2 (08:36→20:56)
[2023-08-08] MEDS: MORPHINE SULFATE 4 MG/ML SYRINGE IV PRN (08:36)
[2023-08-08] MEDS: allopurinoL 100 MG TAB PO SCH (08:36)
[2023-08-08] MEDS: FORMOTEROL FUMARATE 20 MCG/2 ML NEBU INHALATION SCH ×2 (08:50→21:47)
[2023-08-08] MEDS: IPRATROPIUM-ALBUTEROL 3 ML NEB INHALATION SCH ×4 (08:50→21:47)
[2023-08-08] MEDS: BUDESONIDE 1 MG/2 ML NEBU INHALATION SCH ×2 (08:50→21:47)
[2023-08-08] MEDS ORDERED: SPIRONOLACTONE 25 MG TAB PO SCH (09:00)
[2023-08-08] MEDS ORDERED: MAGNESIUM OXIDE 400 MG TAB PO SCH (09:00)
[2023-08-08 11:51] LABS: Glucose,Whole Blood 137 mg/dL (70-110)
--- NOTE | 2023-08-08 12:28 | P.PN ---
Subjective Progress Note Date: 08/08/23 Principal diagnosis: Shortness of breath. I am seeing this patient today 08/07/2023 in the emergency room after he was found to be confused and fell at his [facility] late last night. Patient is a 72-year-old white male with past medical history significant for multiple hospital readmissions for diastolic congestive heart failure, paroxysmal atrial fibrillation anticoagulated on Xarelto, lower extremity cellulitis, morbid obesity, obstructive sleep apnea maintained on CPAP at bedtime, chronic oxygen dependence on 2 L nasal cannula, chronic bronchial asthma, hypertension, hyperli pidemia, and is a remote ex-smoker of over 30 years ago. He did have a recent hospital admission earlier this month for CHF exacerbation. Patient is currently a poor historian, he is confused and not cooperative with care. Apparently, he was brought in by EMS from [facility] after being found confused with decreased level of consciousness. There is concerns that he may have fallen out of bed and hit his head. On arrival to the emergency room, a CT of the head showed no acute intracranial process. No hemorrhage or mass effect. He was found to be hypoxic, and placed on BiPAP with settings 12/6 and FiO2 of 36%. When I came down to examine this patient, he was refusing BiPAP, and on 4 L/m nasal cannula. He is drowsy and oriented to place and self. He is able to provide minimal amount of information. He does not recall falling. He denies any cough, fevers, chills, myalgias. He denies any chest pain, heart palpitations. Chest x-ray on arrival was consistent with exacerbation of felipe tolic congestive heart failure. There is cardiomegaly, trace bilateral pleural effusions, and pulmonary edema. Patient has already be given a one-time dose of Lasix. He is currently wearing a brief. He does have significant lower extremity edema. There are multiple ulcerations especially on his right leg, and venous stasis changes. CBC on arrival showed a WBC count of 10.5, hemoglobin 9.4, hematocrit 30.2, platelets 174. BMP shows sodium 138, potassium 4.9, chloride 103, serum bicarb 25, BUN 41, creatinine 1.91, glucose 103. Troponins less than 0.012. NT proBNP elevated at 2820. ECG shows normal sinus rhythm without any obvious acute ischemic changes. I did evp general counsel the patient on the need for BiPAP therapy at this time, he is agreeable to wear the BiPAP for now. Respiratory rate of 16, achieving tidal volumes around 500. He is full code. Patient will be monitored on the cardiac stepdown unit. Progress note dated 08/08/2023. 72-year-old male that was seen in consultation yesterday, for shortness of breath. The patient has history of multiple medical problems including chronic diastolic CHF, paroxysmal atrial fibrillation, lower extremity cellulitis, morbid obesity, sleep apnea syndrome, and chronic hypoxemic respiratory failure, among other things. The patient is seen today in room 372. He's not receiving any IV fluids. His BiPAP settings were 12/6 and 36% FiO2. When not on BiPAP, the patient's on 4 L by nasal cannula. He states that he is starting to feel better. The patient does have significant lower extremity edema, with chronic venostasis, and hyperpigmentation. White count 10.9, hemoglobin 8.8, hematocrit 29.1, and platelet count 177,000. Sodium 138, potassium 5.5, chlorides 103, CO2 26, BUN 52, and creatinine 2.04. Admission chest x-ray showed cardiomegaly, and significant pulmonary edema. The patient has small bilateral pleural effusions. Objective - Vital Signs Vital signs: Vital Signs Temp 98.1 F 08/08/23 08:30 Pulse 80 08/08/23 11:58 Resp 20 08/08/23 08:30 BP 107/64 08/08/23 08:30 Pulse Ox 93 L 08/08/23 08:50 FiO2 36 08/08/23 04:18 Intake & Output 08/07/23 08/08/23 08/08/23 18:59 06:59 18:59 Output Total 3200 1000 425 Balance -3200 -1000 -425 Weight 126 kg 114.5 kg Output: Urine 3200 1000 425 Uretheral (Lynn) 1250 Other: Voiding Method Indwelling Catheter Indwelling Catheter Indwelling Catheter - Exam No acute distress, oriented 3. Currently on 4 L by nasal cannula. HEENT examination is grossly unremarkable. Neck supple. Full range of motion. No adenopathy thyromegaly or neck vein distention. Cardiovascular examination reveals regular rhythm rate. S1-S2 normal. No S3 or S4. No discernible murmur noted. Heart sounds are distant. Heart rate 80 bpm. Lungs reveal bibasilar crackles. Breath sounds are equal bilaterally. No wheezes or rhonchi. Saturations are 93% on 4 L by nasal cannula. Abdomen soft but obese. No masses or tenderness. Extremities are intact. No cyanosis or clubbing. There is chronic pitting edema of the lower extremities, with chronic hyperpigmentation and venous stasis.. Skin is without rash or lesion. Neurologic examination is brief but nonfocal. - Labs CBC & Chem 7: 08/08/23 07:31 08/08/23 07:31 Labs: Abnormal Lab Results - Last 24 Hours (Table) 08/07/23 08/07/23 08/08/23 Range/Units 16:25 19:54 06:10 WBC (3.8-10.6) k/uL RBC (4.30-5.90) m/uL Hgb (13.0-17.5) gm/dL Hct (39.0-53.0) % MCHC (31.0-37.0) g/dL RDW (11.5-15.5) % Neutrophils # (1.3-7.7) k/uL Lymphocytes # (1.0-4.8) k/uL Potassium (3.5-5.1) mmol/L BUN (9-20) mg/dL Creatinine (0.66-1.25) mg/dL Glucose (74-99) mg/dL POC Glucose (mg/dL) 223 H 151 H 139 H (70-110) mg/dL Phosphorus (2.5-4.5) mg/dL Alkaline Phosphatase (38-126) U/L 08/08/23 08/08/23 08/08/23 Range/Units 07:31 07:31 11:49 WBC 10.9 H (3.8-10.6) k/uL RBC 3.32 L (4.30-5.90) m/uL Hgb 8.8 L (13.0-17.5) gm/dL Hct 29.1 L (39.0-53.0) % MCHC 30.4 L (31.0-37.0) g/dL RDW 19.0 H (11.5-15.5) % Neutrophils # 9.6 H (1.3-7.7) k/uL Lymphocytes # 0.7 L (1.0-4.8) k/uL Potassium 5.5 H (3.5-5.1) mmol/L BUN 52 H (9-20) mg/dL Creatinine 2.04 H (0.66-1.25) mg/dL Glucose 127 H (74-99) mg/dL POC Glucose (mg/dL) 137 H (70-110) mg/dL Phosphorus 6.4 H (2.5-4.5) mg/dL Alkaline Phosphatase 147 H (38-126) U/L Assessment and Plan Assessment: Acute exacerbation of diastolic CHF, with significant cardiomegaly, pulmonary vascular congestion, and small effusions. Chronic bronchial asthma, stable. Acute on chronic hypoxemic and hypercapnic respiratory failure. Acute kidney injury. Acute metabolic encephalopathy. Anemia of chronic disease. Morbid obesity. Frequent falls. Obstructive sleep apnea syndrome, maintained on CPAP. Chronic venous stasis and hyperpigmentation of the lower extremities. Paroxysmal atrial fibrillation. Benign essential hypertension. History of hyperlipidemia. Plan: Plan dated 08/08/2023. The patient's doing reasonably well. He feels a bit improved. He's currently on 4 L of oxygen. Labs, x-rays, medications are reviewed. His lower extremities show evidence of chronic edema, hyperpigmentation, and venous stasis. We will continue to follow the patient, and make recommendations along the way. Prognosis is guarded. His asthma is relatively stable this time. Time with Patient: Less than 30
--- NOTE | 2023-08-08 15:22 | P.PN ---
Subjective HISTORY OF PRESENT ILLNESS: This is a 72-year-old male with a past medical history significant for chronic hypoxic respiratory failure on home oxygen, hypertension, hyperlipidemia, obstructive sleep apnea, paroxysmal atrial fibrillation, and morbid obesity. Patient used to follow in the office with Dr. Lamb but has not been seen since May 2018. We have been asked to see the patient in consultation for congestive heart failure. Patient examined at the bedside. The patient was brought to the hospital from [facility] secondary to altered mental status and lethargy. The patient was found to be in acute congestive heart failure and was started on IV Lasix. The patient is lethargic at the time of examination. He is unable to give any history. He is on a bipap at the time of examination. * EKG reveals sinus mechanism with no signs of acute ischemia * Chest xray cardiomegaly. Severe pulmonary edema. Trace effusions. * Laboratory data: WBC 10.5. Hemoglobin 9.4. Platelet count 174. Sodium 138. Potassium 4.9. BUN 41. Creatinine 1.91. Magnesium 2.1. Troponin negative 2. ProBNP 2820. * Current home cardiac medications include Lipitor 20 mg at night, Aldactone 25 mg daily, Lasix 80 mg daily, metoprolol tartrate 25 mg twice a day, Xarelto 15 mg at dinner * Most recent echocardiogram obtained in March 2023 revealed ejection fraction 50-55%, mild tricuspid regurgitation * Cardiac catheterization history: 2015 revealed calcified proximal LAD, normal LV size and function 9/ Saline examined. Patient more alert today. Denies any chest pain or pressure. He has been maintained on diuretics with good urine output. Creatinine mildly increased up to 2.0. PHYSICAL EXAM: VITAL SIGNS: Reviewed. GENERAL: Well-developed in no acute distress. HEENT: Head is normocephalic. Pupils are equal, round. Sclerae anicteric. Mucous membranes of the mouth are moist. Neck supple. No JVD or thyromegaly LUNGS: Respirations even and unlabored. Lungs diminished bilaterally with crackles noted HEART: Regular rate and rhythm. S1 and S2 heard. ABDOMEN: Soft. Nondistended. Nontender. EXTREMITIES: Normal range of motion. No clubbing or cyanosis. Peripheral pulses intact. Minimal lower extremity edema NEUROLOGIC: Alert and oriented ASSESSMENT: Altered mental status, improved Shortness of breath Acute on chronic heart failure with preserved LV systolic function, 50-55% Mild exacerbation of chronic bronchial asthma Acute kidney injury Chronic hypoxic respiratory failure on home oxygen Paroxysmal atrial fibrillation Obstructive sleep apnea Hypertension Hyperlipidemia PLAN: No need to repeat echo as this was performed in March 2023 Continue IV Lasix Daily weights, accurate I&O, and monitoring of kidney function Continue additional cardiac medications Juarez with diuretics and monitor response. Objective - Vital Signs Vital signs: Vital Signs Temp 97.9 F 08/08/23 12:35 Pulse 72 08/08/23 12:35 Resp 20 08/08/23 12:35 BP 101/62 08/08/23 12:35 Pulse Ox 92 L 08/08/23 12:35 FiO2 36 08/08/23 04:18 Intake & Output 08/07/23 08/08/23 08/08/23 18:59 06:59 18:59 Intake Total 118 Output Total 3200 1000 425 Balance -3200 -1000 -307 Weight 126 kg 114.5 kg Intake: Oral 118 Output: Urine 3200 1000 425 Uretheral (Lynn) 1250 Other: Voiding Method Indwelling Catheter Indwelling Catheter Indwelling Catheter - Labs CBC & Chem 7: 08/08/23 07:31 08/08/23 07:31 Labs: Abnormal Lab Results - Last 24 Hours (Table) 08/07/23 08/07/23 08/08/23 Range/Units 16:25 19:54 06:10 WBC (3.8-10.6) k/uL RBC (4.30-5.90) m/uL Hgb (13.0-17.5) gm/dL Hct (39.0-53.0) % MCHC (31.0-37.0) g/dL RDW (11.5-15.5) % Neutrophils # (1.3-7.7) k/uL Lymphocytes # (1.0-4.8) k/uL Potassium (3.5-5.1) mmol/L BUN (9-20) mg/dL Creatinine (0.66-1.25) mg/dL Glucose (74-99) mg/dL POC Glucose (mg/dL) 223 H 151 H 139 H (70-110) mg/dL Phosphorus (2.5-4.5) mg/dL Alkaline Phosphatase (38-126) U/L 08/08/23 08/08/23 08/08/23 Range/Units 07:31 07:31 11:49 WBC 10.9 H (3.8-10.6) k/uL RBC 3.32 L (4.30-5.90) m/uL Hgb 8.8 L (13.0-17.5) gm/dL Hct 29.1 L (39.0-53.0) % MCHC 30.4 L (31.0-37.0) g/dL RDW 19.0 H (11.5-15.5) % Neutrophils # 9.6 H (1.3-7.7) k/uL Lymphocytes # 0.7 L (1.0-4.8) k/uL Potassium 5.5 H (3.5-5.1) mmol/L BUN 52 H (9-20) mg/dL Creatinine 2.04 H (0.66-1.25) mg/dL Glucose 127 H (74-99) mg/dL POC Glucose (mg/dL) 137 H (70-110) mg/dL Phosphorus 6.4 H (2.5-4.5) mg/dL Alkaline Phosphatase 147 H (38-126) U/L
--- NOTE | 2023-08-08 15:35 | P.HPIM ---
History of Present Illness H&P Date: 08/07/23 HISTORY OF PRESENT ILLNESS: This is a 72-year-old male with a previous medical history significant for hypertension and hypertensive cardiovascular disease, hyperlipidemia, obesity with obstructive sleep apnea and obesity hypoventilation syndrome, chronic diastolic heart failure, asthma, hypothyroidism, anxiety and depressive disorder, peripheral neuropathy, patient was recently discharged from [facility] after he was admitted to the hospital for bilateral lower extremity cellulitis due to bilateral venous ulceration due to increased swelling in both lower extremity is, patient was treated with IV antibiotic as well as IV diuretics,then he was admitted for chest pain and was discharged to [facility] on the [place] and he was seen there this past Weekend and he was complaining of increased cough ad increased shortness of breath and had a CXR at the facility that did showe evidence of Pneumonia and he was started on Avelox 400 mg po daily for 10 days and Mucinex 600 mg po bid for 10 day and he was on 4 L NC and was on Nebulized treatment yesterday the Nurse called me and stated that he is getting more confused his O2 was at 5 L NC and he was placed on CPAP and his O2 decreased to 2 L NC , patient felt better for a little bit unfortunately at midnight he fell and hit his head so he was sent to the ER and had CT scan of the brain that was negative and had CXR that showed Pulmonary edema, he was placed on BIPAP and was started on Lasix 40 mg IVP q 12 Hours and was admitted to the hospital for acute diastolic heart failure and pulmonary along with cardiology consultation REVIEW OF SYSTEMS: Constitutional: No documented fever, no chills, no night sweats. No weight change. No weakness, fatigue or lethargy. No daytime sleepiness. HEENT: No headache. No blurred vision or double vision, no loss of vision. No loss of Hearing, no ringing in the ears, no dizziness. No nasal drainage or congestion. No epistaxis. No sore throat. Lungs: positive for shortness of breath, occasional cough, minimal sputum production. No wheezing. Reports dyspnea with activity. Cardiovascular: positive for chest pain, positive for lower extremity edema. No palpitations. No paroxysmal nocturnal dyspnea. No orthopnea. No lightheadedness or dizziness. No syncopal episodes. Abdominal: Reports abdominal pain. No nausea, vomiting. No diarrhea. No constipation. No bloody or tarry stools reports loss of appetite. Genitourinary: No dysuria, increased frequency, urgency. No urinary retention. Musculoskeletal: No myalgias. positive for muscle weakness, positive for gait dysfunction, positive for frequent falls. positive for back pain. No neck pain, bilateral hip pain Integumentary: No wounds, no lesions. No rash or pruritus. No unusual bruising. No change in hair or nails. Neurologic: No aphasia. No facial droop. No change in mentation. No head injury. No headache. No paralysis. No paresthesia. Psychiatric: No depression. No anxiety. No mood swings. Endocrine: No abnormal blood sugars. No weight change. PAST MEDICAL HISTORY: Hypertension and hypertensive cardiovascular disease. Hyperlipidemia. Hypothyroidism. Obesity with obstructive sleep apnea and obesity hypoventilation syndrome Moderate persistent asthma. Enlarged prostate. Anxiety. PAST SURGICAL HISTORY: Left knee replacement Circumcision Colonoscopy SOCIAL HISTORY: She used to smoke about pack every day he smoked for many years and quit about 15 years ago, he denies any alcohol ingestion, no drug use or abuse. FAMILY HISTORY: Father at age of 61 from [place] mother at age of 70 and she had osteoarthritis patient had 3 brothers one from lung cancer one with CAD and 1 Parkinson disease and patient had 5 sisters all have passed PHYSICAL EXAMINATION: General: 72-year-old male lying down in bed in moderate respiratory distress HEENT: Head is atraumatic, normocephalic, pupils were equal round reactive to light and recommendation, extraocular muscle movement were intact, sclera nonicteric, conjunctivae were pale, mucous membranes of the mouth are somewhat dry. Neck: Supple, no JVP, normal carotid upstroke bilaterally, no lymphadenopathy. Chest: Decreased breath sounds at the bases, few rhonchi, no expiratory wheezes, no chest wall tenderness, no intercostal retractions. Heart: First heart sound is normal, second heart sound is normal, there is systolic ejection murmur 2/6 located in the left sternal border. Abdomen: Soft, nontender, nondistended, positive bowel sounds, obese. Extremities: There is +2 edema no calf tenderness DP +2 bilaterally, there is bilateral scabbed lesions in both shins free Neurologic examination: Patient is awake alert and oriented X 3, cranial nerves II-12 appear grossly intact, muscle power were 5 out of 5 in upper extremities and 3/5 in bilateral lower extremities ASSESSMENT AND PLAN: 1. Acute hypoxemic/ hypercarbic respiratory failure due to acute on chronic diastolic heart failure and COPD wit RAMYA and OHS . patient was started on Lasix 40 mg IV push every12 hours, monitor input and output and daily weight, continue spironolactone 25 mg orally once every day, continue patient on Farxiga 10 mg orally once every day, metoprolol 25 mg orally twice every day, cardiology consultation. 2. Acute COPD exacerbation with partially treated gram negative Pneumonia. we will continue with Solu-Medrol 60 mg IVP Q 6 h, we will continue with Duoneb 34 ml Nebulization q6 hours and we will continue with O2 support. Pulmonary consult 3. COPD/moderate persistent asthma and not in exacerbation with chronic hypoxemic respiratory failure continue oxygen support continue DuoNeb 3 mg ne bulization 4 times every day. 4. Paroxysmal atrial fibrillation Continue patient on metoprolol 25 mg orally twice every day, on Xarelto 15 mg orally once every day 5.. Hypertension and hypertensive cardiovascular disease. Continue patient on metoprolol 25 mg orally twice every day, monitor the patient blood pressure very closely. 6. Hyperlipidemia. Continue patient on atorvastatin 20 mg orally once every day, monitor lipid panel, keep LDL 55-70. 7. Enlarged prostate. Continue patient on tamsulosin 0.4 mg orally once every day. 8. Anxiety disorder. Continue patient on sertraline 100 mg orally once every day. 9. Neuropathy. Continue patient on gabapentin 300 mg at bedtime. 10. DVT prophylaxis. Continue Xarelto 15 mg po daily 11. GI prophylaxis. Continue patient on Protonix 40 mg orally once every day. 12. Admit to inpatient. Estimate a length of stay 2 midnights. 13. Patient is full code. Past Medical History Past Medical History: Asthma, Chest Pain / Angina, GERD/Reflux, Hyperlipidemia, Hypertension, Osteoarthritis (OA), Pneumonia, Sleep Apnea/CPAP/BIPAP Additional Past Medical History / Comment(s): uses oxygen at night 2L, gout, in wheelchair or walker due to pain in left leg, poor circulation in legs History of Any Multi-Drug Resistant Organisms: None Reported Past Surgical History: Orthopedic Surgery, Tonsillectomy Additional Past Surgical History / Comment(s): LEFT WRIST ORIF, LEFT KNEE REPLACEMENT, bilateral cataract surgery Past Anesthesia/Blood Transfusion Reactions: No Reported Reaction Additional Past Anesthesia/Blood Transfusion Reaction / Comment(s): . Past Psychological History: Depression Additional Psychological History / Comment(s): Patient states he has slight confusion / memory loss. Smoking Status: Former smoker Past Alcohol Use History: None Reported Additional Past Alcohol Use History / Comment(s): . Past Drug Use History: None Reported - Past Family History Mother Family Medical History: Congestive Heart Failure (CHF), Osteoarthritis (OA) Father Additional Family Medical History / Comment(s): FROM [place] Brother(s) Family Medical History: Cancer Additional Family Medical History / Comment(s): . Sister(s) Family Medical History: Deep Vein Thrombosis (DVT) Medications and Allergies Home Medications Medication Instructions Recorded Confirmed Type Metoprolol Tartrate 25 mg PO BID 11/02/14 08/07/23 History allopurinoL [Zyloprim] 200 mg PO DAILY 11/02/14 08/07/23 History Sertraline [Zoloft] 100 mg PO HS 04/04/17 08/07/23 History Atorvastatin [Lipitor] 20 mg PO HS 07/14/19 08/07/23 History Spironolactone [Aldactone] 25 mg PO DAILY 07/14/19 08/07/23 History Tamsulosin [Flomax] 0.4 mg PO DAILY 07/14/19 08/07/23 History Ipratropium-Albuterol Nebulize 3 ml INHALATION RT-Q6H 08/19/19 08/07/23 History [Duoneb 0.5 mg-3 mg/3 ml Soln] Acetaminophen Tab [Tylenol] 500 mg PO Q6H PRN 03/26/23 08/07/23 History Cholecalciferol [Vitamin D3 (25 50 mcg PO DAILY 03/26/23 08/07/23 History Mcg = 1000 Iu)] Potassium Chloride ER [K-Dur 20] 20 meq PO BID 03/26/23 08/07/23 History Baclofen [Lioresal] 10 mg PO BID PRN tab 03/31/23 08/07/23 Rx SILVER sulfADIAZINE Cream 1 applic TOPICAL DAILY each 03/31/23 08/07/23 Rx [Silvadene 1% Cream] Rivaroxaban [Xarelto] 15 mg PO W/SUPPER #30 tab 06/25/23 08/07/23 Rx Furosemide [Lasix] 80 mg PO DAILY #0 07/09/23 08/07/23 Rx Benzonatate [Tessalon Perles] 200 mg PO TID PRN cap 07/17/23 08/07/23 Rx Gabapentin [Neurontin] 300 mg PO HS #3 cap 07/17/23 08/07/23 Rx Dapagliflozin Propanediol [Farxiga] 5 mg PO DAILY 08/07/23 08/07/23 History Magnesium Oxide [Mag-Ox] 400 mg PO DAILY 08/07/23 08/07/23 History Melatonin 10 mg PO HS PRN 08/07/23 08/07/23 History Montelukast [Singulair] 10 mg PO DAILY 08/07/23 08/07/23 History Moxifloxacin HCl [Avelox] 400 mg PO HS 08/07/23 08/07/23 History Omeprazole [PriLOSEC] 20 mg PO DAILY 08/07/23 08/07/23 History Tirzepatide [Mounjaro] 2.5 mg SQ MO 08/07/23 08/07/23 History guaiFENesin [guaiFENesin ER] 600 mg PO BID 08/07/23 08/07/23 History Allergies Allergy/AdvReac Type Severity Reaction Status Date / Time No Known Allergies Allergy Verified 07/15/23 13:56 Physical Exam Vitals: Vital Signs Temp Pulse Pulse Resp BP BP Pulse Ox 08/07/23 11:55 85 08/07/23 11:44 87 08/07/23 08:16 73 22 08/07/23 08:03 72 08/07/23 07:53 68 08/07/23 07:52 68 08/07/23 07:41 60 08/07/23 04:11 08/07/23 04:00 97.5 F L 73 112/67 08/07/23 03:28 98 F 70 22 100/64 98 08/07/23 02:45 50 L 18 130/69 93 L 08/07/23 01:10 65 22 102/75 94 L 08/07/23 01:09 63 08/07/23 00:52 64 08/07/23 00:00 65 20 103/53 98 08/06/23 23:46 97.8 F 68 22 98/82 98 FiO2 08/07/23 11:55 08/07/23 11:44 36 08/07/23 08:16 08/07/23 08:03 08/07/23 07:53 08/07/23 07:52 08/07/23 07:41 36 08/07/23 04:11 36 08/07/23 04:00 08/07/23 03:28 08/07/23 02:45 08/07/23 01:10 08/07/23 01:09 08/07/23 00:52 08/07/23 00:00 08/06/23 23:46 Intake and Output 08/06/23 08/07/23 08/07/23 22:59 06:59 14:59 Output Total 750 Balance -750 Output: Urine 750 Uretheral (Lynn) 350 Other: Voiding Method Indwelling Catheter # Voids 1 Weight 126 kg 126 kg Results CBC & Chem 7: 08/08/23 07:31 08/08/23 07:31 Labs: Abnormal Lab Results - Last 24 Hours (Table) 08/07/23 08/07/23 08/07/23 Range/Units 00:12 00:12 00:12 RBC 3.52 L (4.30-5.90) m/uL Hgb 9.4 L (13.0-17.5) gm/dL Hct 30.2 L (39.0-53.0) % RDW 19.2 H (11.5-15.5) % Neutrophils # 8.1 H (1.3-7.7) k/uL Lymphocytes # 0.9 L (1.0-4.8) k/uL PT 13.3 H (9.0-12.0) sec INR 1.3 H (<1.2) APTT 36.6 H (22.0-30.0) sec ABG pH (7.35-7.45) ABG pCO2 (35-45) mmHg ABG HCO3 (21-25) mmol/L ABG Total CO2 (19-24) mmol/L BUN 41 H (9-20) mg/dL Creatinine 1.91 H (0.66-1.25) mg/dL Glucose 103 H (74-99) mg/dL Phosphorus 5.6 H (2.5-4.5) mg/dL Alkaline Phosphatase 161 H (38-126) U/L 08/07/23 Range/Units 04:15 RBC (4.30-5.90) m/uL Hgb (13.0-17.5) gm/dL Hct (39.0-53.0) % RDW (11.5-15.5) % Neutrophils # (1.3-7.7) k/uL Lymphocytes # (1.0-4.8) k/uL PT (9.0-12.0) sec INR (<1.2) APTT (22.0-30.0) sec ABG pH 7.33 L (7.35-7.45) ABG pCO2 50 H (35-45) mmHg ABG HCO3 26 H (21-25) mmol/L ABG Total CO2 28 H (19-24) mmol/L BUN (9-20) mg/dL Creatinine (0.66-1.25) mg/dL Glucose (74-99) mg/dL Phosphorus (2.5-4.5) mg/dL Alkaline Phosphatase (38-126) U/L Thrombosis Risk Factor Assmnt - Choose All That Apply Any of the Below Risk Factors Present?: Yes Each Factor Represents 1 point: Abnormal pulmonary function (COPD) Other Risk Factors: Yes Each Risk Factor Represents 2 Points: Age 61-74 years Thrombosis Risk Factor Assessment Total Risk Factor Score: 3 Thrombosis Risk Factor Assessment Level: Moderate Risk
[2023-08-08 16:18] LABS: Glucose,Whole Blood 147 mg/dL (70-110)
[2023-08-08] MEDS: RIVAROXABAN 15 MG TAB PO SCH (16:21)
[2023-08-08 20:08] LABS: Glucose,Whole Blood 155 mg/dL (70-110)
[2023-08-08] MEDS: SERTRALINE 100 MG TAB PO SCH (20:56)
[2023-08-08] MEDS: methylPREDNISolone SOD SUCCI 40 MG/ML 1 ML VIAL IV SCH (20:56)
[2023-08-08] MEDS: GABAPENTIN 300 MG CAP PO SCH (20:56)
[2023-08-08] MEDS: ATORVASTATIN 20 MG TAB PO SCH (20:56)
[2023-08-09] MEDS: methylPREDNISolone SOD SUCCI 40 MG/ML 1 ML VIAL IV SCH ×2 (03:21→11:14)
[2023-08-09 06:04] LABS: Glucose,Whole Blood 142 mg/dL (70-110)
[2023-08-09] MEDS: INSULIN ASPART (NovoLOG) 100 UNIT/ML VIAL SQ SCH ×4 (06:26→20:47)
[2023-08-09] MEDS: METOPROLOL TARTRATE 25 MG TAB PO SCH ×2 (08:24→20:46)
[2023-08-09] MEDS: guaiFENesin 600 MG TABLET.ER PO SCH (08:24)
[2023-08-09] MEDS: allopurinoL 100 MG TAB PO SCH (08:24)
[2023-08-09] MEDS: TAMSULOSIN 0.4 MG CAP.ER.24H PO SCH (08:24)
[2023-08-09] MEDS: MONTELUKAST 10 MG TAB PO SCH (08:24)
[2023-08-09] MEDS: CHOLECALCIFEROL 25 MCG (1000 IU) TABLET PO SCH (08:24)
[2023-08-09] MEDS: SPIRONOLACTONE 25 MG TAB PO SCH (08:25)
[2023-08-09] MEDS: DAPAGLIFLOZIN PROPANEDIOL 5 MG TABLET PO SCH (08:25)
[2023-08-09] MEDS: FUROSEMIDE 10 MG/ML 4 ML VIAL IV SCH (08:25)
[2023-08-09] MEDS: PANTOPRAZOLE 40 MG TABLET PO SCH (08:25)
[2023-08-09] MEDS: BUDESONIDE 1 MG/2 ML NEBU INHALATION SCH ×2 (09:16→20:33)
[2023-08-09] MEDS: FORMOTEROL FUMARATE 20 MCG/2 ML NEBU INHALATION SCH ×2 (09:16→20:33)
[2023-08-09] MEDS: IPRATROPIUM-ALBUTEROL 3 ML NEB INHALATION SCH ×4 (09:16→20:33)
[2023-08-09 09:48] LABS: Anisocytosis Slight; Basophils % (A) 0 %; Eosinophils % (A) 0 %; HCT 29.5 % (39.0-53.0); HGB 9.1 gm/dL (13.0-17.5); Hypochromasia Marked; Lymphocytes # (A) 0.6 k/uL (1.0-4.8); Lymphocytes % (A) 6 %; MCHC 30.7 g/dL (31.0-37.0); Mean Platelet Volume 7.7; Monocytes # (A) 0.4 k/uL (0-1.0); Monocytes % (A) 4 %; Neutrophils # (A) 8.8 k/uL (1.3-7.7); Neutrophils % (A) 89 %; Platelet Count 175 k/uL (150-450); RBC 3.35 m/uL (4.30-5.90); RDW 18.8 % (11.5-15.5); WBC 9.8 k/uL (3.8-10.6)
[2023-08-09 10:03] LABS: ALT 20 U/L (4-49); AST 35 U/L (17-59); African American GFR (CKD) 41 (>60 ml/min/1.73 sqM); Albumin 3.6 g/dL (3.5-5.0); Alkaline Phosphatase 159 U/L (38-126); Anion Gap 9 mmol/L; Blood Urea Nitrogen 71 mg/dL (9-20); Carbon Dioxide 26 mmol/L (22-30); Chloride 102 mmol/L (98-107); Glucose 145 mg/dL (74-99); Non-African American GFR(CKD) 35 (>60 ml/min/1.73 sqM); Potassium 5.1 mmol/L (3.5-5.1); Sodium 137 mmol/L (137-145); Total Bilirubin 0.7 mg/dL (0.2-1.3); Total Protein 7.5 g/dL (6.3-8.2)
--- NOTE | 2023-08-09 10:09 | P.PN ---
Subjective HISTORY OF PRESENT ILLNESS: This is a 72-year-old male with a past medical history significant for chronic hypoxic respiratory failure on home oxygen, hypertension, hyperlipidemia, obstructive sleep apnea, paroxysmal atrial fibrillation, and morbid obesity. Patient used to follow in the office with Dr. Lamb but has not been seen since May 2018. We have been asked to see the patient in consultation for congestive heart failure. Patient examined at the bedside. The patient was brought to the hospital from [facility] secondary to altered mental status and lethargy. The patient was found to be in acute congestive heart failure and was started on IV Lasix. The patient is lethargic at the time of examination. He is unable to give any history. He is on a bipap at the time of examination. * EKG reveals sinus mechanism with no signs of acute ischemia * Chest xray cardiomegaly. Severe pulmonary edema. Trace effusions. * Laboratory data: WBC 10.5. Hemoglobin 9.4. Platelet count 174. Sodium 138. Potassium 4.9. BUN 41. Creatinine 1.91. Magnesium 2.1. Troponin negative 2. ProBNP 2820. * Current home cardiac medications include Lipitor 20 mg at night, Aldactone 25 mg daily, Lasix 80 mg daily, metoprolol tartrate 25 mg twice a day, Xarelto 15 mg at dinner * Most recent echocardiogram obtained in March 2023 revealed ejection fraction 50-55%, mild tricuspid regurgitation * Cardiac catheterization history: 2015 revealed calcified proximal LAD, normal LV size and function 08/08 Seen and examined. Patient more alert today. Denies any chest pain or pressure. He has been maintained on diuretics with good urine output. Creatini ne mildly increased up to 2.0. 08/09 Patient seen and examined. Patient denies any chest pain or pressure. Has been receiving IV Lasix with creatinine mildly improved 2.0-1.8. Has had good urine output with Lynn approximately 2 L in the last 24hrs. has been intermittently going in and out of atrial flutter with heart rates still predominantly controlled in the 90s. PHYSICAL EXAM: VITAL SIGNS: Reviewed. GENERAL: Well-developed in no acute distress. HEENT: Head is normocephalic. Pupils are equal, round. Sclerae anicteric. Mucous membranes of the mouth are moist. Neck supple. No JVD or thyromegaly LUNGS: Respirations even and unlabored. Lungs diminished bilaterally with crackles noted HEART: Regular rate and rhythm. S1 and S2 heard. ABDOMEN: Soft. Nondistended. Nontender. EXTREMITIES: Normal range of motion. No clubbing or cyanosis. Peripheral pulses intact. Minimal lower extremity edema NEUROLOGIC: Alert and oriented ASSESSMENT: Altered mental status, improved Shortness of breath Acute on chronic heart failure with preserved LV systolic function, 50-55% Mild exacerbation of chronic bronchial asthma Acute kidney injury Chronic hypoxic respiratory failure on home oxygen Paroxysmal atrial fibrillation/ typical atrial flutter Obstructive sleep apnea Hypertension Hyperlipidemia PLAN: Continue IV Lasix Daily weights, accurate I&O, and monitoring of kidney function, appears stable Continue additional cardiac medications Continue with diuretics and monitor response. Overall HRs appear controlled despite having intermittent Aflutter. Objective - Vital Signs Vital signs: Vital Signs Temp 97.9 F 08/09/23 08:21 Pulse 86 08/09/23 09:44 Resp 19 08/09/23 08:21 BP 110/63 08/09/23 08:21 Pulse Ox 96 08/09/23 09:18 FiO2 36 08/09/23 04:25 Intake & Output 08/08/23 08/09/23 08/09/23 18:59 06:59 18:59 Intake Total 318 500 180 Output Total 825 720 700 Balance -507 -220 -520 Weight 125.5 kg Intake: Oral 318 500 180 Output: Urine 825 720 700 Other: Voiding Method Indwelling Catheter Indwelling Catheter Indwelling Catheter - Labs CBC & Chem 7: 08/09/23 09:01 08/09/23 09:01 Labs: Abnormal Lab Results - Last 24 Hours (Table) 08/08/23 08/08/23 08/08/23 Range/Units 11:49 16:16 20:06 RBC (4.30-5.90) m/uL Hgb (13.0-17.5) gm/dL Hct (39.0-53.0) % MCHC (31.0-37.0) g/dL RDW (11.5-15.5) % Neutrophils # (1.3-7.7) k/uL Lymphocytes # (1.0-4.8) k/uL BUN (9-20) mg/dL Creatinine (0.66-1.25) mg/dL Glucose (74-99) mg/dL POC Glucose (mg/dL) 137 H 147 H 155 H (70-110) mg/dL Alkaline Phosphatase (38-126) U/L 08/09/23 08/09/23 08/09/23 Range/Units 06:00 09:01 09:01 RBC 3.35 L (4.30-5.90) m/uL Hgb 9.1 L (13.0-17.5) gm/dL Hct 29.5 L (39.0-53.0) % MCHC 30.7 L (31.0-37.0) g/dL RDW 18.8 H (11.5-15.5) % Neutrophils # 8.8 H (1.3-7.7) k/uL Lymphocytes # 0.6 L (1.0-4.8) k/uL BUN 71 H (9-20) mg/dL Creatinine 1.87 H (0.66-1.25) mg/dL Glucose 145 H (74-99) mg/dL POC Glucose (mg/dL) 142 H (70-110) mg/dL Alkaline Phosphatase 159 H (38-126) U/L
--- NOTE | 2023-08-09 11:34 | P.PN ---
Subjective Progress Note Date: 08/08/23 HISTORY OF PRESENT ILLNESS: This is a 72-year-old male with a previous medical history significant for hypertension and hypertensive cardiovascular disease, hyperlipidemia, obesity with obstructive sleep apnea and obesity hypoventilation syndrome, chronic diastolic heart failure, asthma, hypothyroidism, anxiety and depressive disorder, peripheral neuropathy, patient was recently discharged from [facility] after he was admitted to the hospital for bilateral lower extremity cellulitis due to bilateral venous ulceration due to increased swelling in both lower extremity is, patient was treated with IV antibiotic as well as IV diuretics,then he was admitted for chest pain and was discharged to [facility] on the [address] and he was seen there this past Weekend and he was complaining of in creased cough ad increased shortness of breath and had a CXR at the facility that did showe evidence of Pneumonia and he was started on Avelox 400 mg po daily for 10 days and Mucinex 600 mg po bid for 10 day and he was on 4 L NC and was on Nebulized treatment yesterday the Nurse called me and stated that he is getting more confused his O2 was at 5 L NC and he was placed on CPAP and his O2 decreased to 2 L NC , patient felt better for a little bit unfortunately at midnight he fell and hit his head so he was sent to the ER and had CT scan of the brain that was negative and had CXR that showed Pulmonary edema, he was placed on BIPAP and was started on Lasix 40 mg IVP q 12 Hours and was admitted to the hospital for acute diastolic heart failure and pulmonary along with cardiology consultation 08/08: Patient is sitting up in bed continues to be somewhat confused and we will decrease his Solu-Mwedrol to 40 mg IVP Q 8 H and we will continue with current treatment plan, we will continue with PT and OT evaluation and the plan is to return to [facility] on [facility] on Friday. REVIEW OF SYSTEMS: Constitutional: No documented fever, no chills, no night sweats. No weight change. No weakness, fatigue or lethargy. No daytime sleepiness. HEENT: No headache. No blurred vision or double vision, no loss of vision. No loss of Hearing, no ringing in the ears, no dizziness. No nasal drainage or congestion. No epistaxis. No sore throat. Lungs: positive for shortness of breath, occasional cough, minimal sputum production. No wheezing. Reports dyspnea with activity. Cardiovascular: positive for chest pain, positive for lower extremity edema. No palpitations. No paroxysmal nocturnal dyspnea. No orthopnea. No lightheadedness or dizziness. No syncopal episodes. Abdominal: Reports abdominal pain. No nausea, vomiting. No diarrhea. No constipation. No bloody or tarry stools reports loss of appetite. Genitourinary: No dysuria, increased frequency, urgency. No urinary retention. Musculoskeletal: No myalgias. positive for muscle weakness, positive for gait dysfunction, positive for frequent falls. positive for back pain. No neck pain, bilateral hip pain Integumentary: No wounds, no lesions. No rash or pruritus. No unusual bruising. No change in hair or nails. Neurologic: No aphasia. No facial droop. No change in mentation. No head injury. No headache. No paralysis. No paresthesia. Psychiatric: No depression. No anxiety. No mood swings. Endocrine: No abnormal blood sugars. No weight change. PHYSICAL EXAMINATION: General: 72-year-old male lying down in bed in moderate respiratory distress HEENT: Head is atraumatic, normocephalic, pupils were equal round reactive to light and recommendation, extraocular muscle movement were intact, sclera nonicteric, conjunctivae were pale, mucous membranes of the mouth are somewhat dry. Neck: Supple, no JVP, normal carotid upstroke bilaterally, no lymphadenopathy. Chest: Decreased breath sounds at the bases, few rhonchi, no expiratory wheezes, no chest wall tenderness, no intercostal retractions. Heart: First heart sound is normal, second heart sound is normal, there is systolic ejection murmur 2/6 located in the left sternal border. Abdomen: Soft, nontender, nondistended, positive bowel sounds, obese. Extremities: There is +2 edema no calf tenderness DP +2 bilaterally, there is bilateral scabbed lesions in both shins free Neurologic examination: Patient is awake alert and oriented X 3, cranial nerves II-12 appear grossly intact, muscle power were 5 out of 5 in upper extremities and 3/5 in bilateral lower extremities ASSESSMENT AND PLAN: 1. Acute hypoxemic/ hypercarbic respiratory failure due to acute on chronic diastolic heart failure and COPD wit RAMYA and OHS . patient was started on Lasix 40 mg IV push every12 hours, monitor input and output and daily weight, decrease spironolactone 12.5 mg orally once every day, continue patient on Farxiga 10 mg orally once every day, metoprolol 25 mg orally twice every day. 2. Acute COPD exacerbation with partially treated gram negative Pneumonia. we will continue with Solu-Medrol 60 mg IVP Q 8 h, we will continue with Duoneb 3 ml Nebulization q6 hours and we will continue with O2 support, we will continue with Levaquin 750 mg po Q 48 hours 3. COPD/moderate persistent asthma and not in exacerbation with chronic hypoxemic and hypercarbic respiratory failure continue oxygen support continue DuoNeb 3 mg nebulization 4 times every day. 4. Paroxysmal atrial fibrillation Continue patient on metoprolol 25 mg orally twice every day, on Xarelto 15 mg orally once every day 5.. Hypertension and hypertensive cardiovascular disease. Continue patient on metoprolol 25 mg orally twice every day, monitor the patient blood pressure very closely. 6. Hyperlipidemia. Continue patient on atorvastatin 20 mg orally once every d ay, monitor lipid panel, keep LDL 55-70. 7. Enlarged prostate. Continue patient on tamsulosin 0.4 mg orally once every day. 8. Anxiety disorder. Continue patient on sertraline 100 mg orally once every day. 9. Neuropathy. Continue patient on gabapentin 300 mg at bedtime. 10. DVT prophylaxis. Continue Xarelto 15 mg po daily 11. GI prophylaxis. Continue patient on Protonix 40 mg orally once every day. 12. PT /OT evaluation. 13. best worker consult for Discharge planning. Objective - Vital Signs Vital signs: Vital Signs Temp 97.9 F 08/08/23 12:35 Pulse 72 08/08/23 12:35 Resp 20 08/08/23 12:35 BP 101/62 08/08/23 12:35 Pulse Ox 92 L 08/08/23 12:35 FiO2 36 08/08/23 04:18 Intake & Output 08/07/23 08/08/23 08/08/23 18:59 06:59 18:59 Intake Total 118 Output Total 3200 1000 425 Balance -3200 -1000 -307 Weight 126 kg 114.5 kg Intake: Oral 118 Output: Urine 3200 1000 425 Uretheral (Lynn) 1250 Other: Voiding Method Indwelling Catheter Indwelling Catheter Indwelling Catheter - Labs CBC & Chem 7: 08/09/23 09:01 09/09/23 09:01 Labs: Abnormal Lab Results - Last 24 Hours (Table) 08/07/23 08/07/23 08/08/23 Range/Units 16:25 19:54 06:10 WBC (3.8-10.6) k/uL RBC (4.30-5.90) m/uL Hgb (13.0-17.5) gm/dL Hct (39.0-53.0) % MCHC (31.0-37.0) g/dL RDW (11.5-15.5) % Neutrophils # (1.3-7.7) k/uL Lymphocytes # (1.0-4.8) k/uL Potassium (3.5-5.1) mmol/L BUN (9-20) mg/dL Creatinine (0.66-1.25) mg/dL Glucose (74-99) mg/dL POC Glucose (mg/dL) 223 H 151 H 139 H (70-110) mg/dL Phosphorus (2.5-4.5) mg/dL Alkaline Phosphatase (38-126) U/L 08/08/23 08/08/23 08/08/23 Range/Units 07:31 07:31 11:49 WBC 10.9 H (3.8-10.6) k/uL RBC 3.32 L (4.30-5.90) m/uL Hgb 8.8 L (13.0-17.5) gm/dL Hct 29.1 L (39.0-53.0) % MCHC 30.4 L (31.0-37.0) g/dL RDW 19.0 H (11.5-15.5) % Neutrophils # 9.6 H (1.3-7.7) k/uL Lymphocytes # 0.7 L (1.0-4.8) k/uL Potassium 5.5 H (3.5-5.1) mmol/L BUN 52 H (9-20) mg/dL Creatinine 2.04 H (0.66-1.25) mg/dL Glucose 127 H (74-99) mg/dL POC Glucose (mg/dL) 137 H (70-110) mg/dL Phosphorus 6.4 H (2.5-4.5) mg/dL Alkaline Phosphatase 147 H (38-126) U/L
[2023-08-09 11:42] LABS: Glucose,Whole Blood 175 mg/dL (70-110)
--- NOTE | 2023-08-09 11:42 | P.PN ---
Subjective Progress Note Date: 08/09/23 Principal diagnosis: Shortness of breath. I am seeing this patient today 08/07/2023 in the emergency room after he was found to be confused and fell at his [facility] late last night. Patient is a 72-year-old white male with past medical history significant for multiple hospital readmissions for diastolic congestive heart failure, paroxysmal atrial fibrillation anticoagulated on Xarelto, lower extremity cellulitis, morbid obesity, obstructive sleep apnea maintained on CPAP at bedtime, chronic oxygen dependence on 2 L nasal cannula, chronic bronchial asthma, hypertension, hyperli pidemia, and is a remote ex-smoker of over 30 years ago. He did have a recent hospital admission earlier this month for CHF exacerbation. Patient is currently a poor historian, he is confused and not cooperative with care. Apparently, he was brought in by EMS from [facility] after being found confused with decreased level of consciousness. There is concerns that he may have fallen out of bed and hit his head. On arrival to the emergency room, a CT of the head showed no acute intracranial process. No hemorrhage or mass effect. He was found to be hypoxic, and placed on BiPAP with settings 12/6 and FiO2 of 36%. When I came down to examine this patient, he was refusing BiPAP, and on 4 L/m nasal cannula. He is drowsy and oriented to place and self. He is able to provide minimal amount of information. He does not recall falling. He denies any cough, fevers, chills, myalgias. He denies any chest pain, heart palpitations. Chest x-ray on arrival was consistent with exacerbation of felipe tolic congestive heart failure. There is cardiomegaly, trace bilateral pleural effusions, and pulmonary edema. Patient has already be given a one-time dose of Lasix. He is currently wearing a brief. He does have significant lower extremity edema. There are multiple ulcerations especially on his right leg, and venous stasis changes. CBC on arrival showed a WBC count of 10.5, hemoglobin 9.4, hematocrit 30.2, platelets 174. BMP shows sodium 138, potassium 4.9, chloride 103, serum bicarb 25, BUN 41, creatinine 1.91, glucose 103. Troponins less than 0.012. NT proBNP elevated at 2820. ECG shows normal sinus rhythm without any obvious acute ischemic changes. I did career and guidance counselor the patient on the need for BiPAP therapy at this time, he is agreeable to wear the BiPAP for now. Respiratory rate of 16, achieving tidal volumes around 500. He is full code. Patient will be monitored on the cardiac stepdown unit. Progress note dated 08/08/2023. 72-year-old male that was seen in consultation yesterday, for shortness of breath. The patient has history of multiple medical problems including chronic diastolic CHF, paroxysmal atrial fibrillation, lower extremity cellulitis, morbid obesity, sleep apnea syndrome, and chronic hypoxemic respiratory failure, among other things. The patient is seen today in room 372. He's not receiving any IV fluids. His BiPAP settings were 12/6 and 36% FiO2. When not on BiPAP, the patient's on 4 L by nasal cannula. He states that he is starting to feel better. The patient does have significant lower extremity edema, with chronic venostasis, and hyperpigmentation. White count 10.9, hemoglobin 8.8, hematocrit 29.1, and platelet count 177,000. Sodium 138, potassium 5.5, chlorides 103, CO2 26, BUN 52, and creatinine 2.04. Admission chest x-ray showed cardiomegaly, and significant pulmonary edema. The patient has small bilateral pleural effusions. Progress note dated 08/09/2023. The patient is again seen in room 372. The patient is on 3 L of oxygen. He does use BiPAP at night, with settings of 12/6, and 36%. He's not receiving any IV fluids. The patient was admitted with a diagnosis of CHF. Clinically, he is doing much better. White count is 9.8, hemoglobin 9.1, hematocrit 29.5, with a platelet count of 175,000. Sodium 137, potassium 5.1, chlorides 102, CO2 26, BUN 71, and creatinine 1.87. Objective - Vital Signs Vital signs: Vital Signs Temp 97.7 F 08/09/23 11:12 Pulse 82 08/09/23 11:12 Resp 19 08/09/23 11:12 BP 101/60 08/09/23 11:12 Pulse Ox 93 L 08/09/23 11:12 FiO2 36 08/09/23 04:25 Intake & Output 08/08/23 08/09/23 08/09/23 18:59 06:59 18:59 Intake Total 318 500 180 Output Total 825 720 700 Balance -507 -220 -520 Weight 125.5 kg Intake: Oral 318 500 180 Output: Urine 825 720 700 Other: Voiding Method Indwelling Catheter Indwelling Catheter Indwelling Catheter - Exam No acute distress, oriented 3. Currently on 3 L by nasal cannula. HEENT examination is grossly unremarkable. Neck supple. Full range of motion. No adenopathy thyromegaly or neck vein distention. Cardiovascular examination reveals regular rhythm rate. S1-S2 normal. No S3 or S4. No discernible murmur noted. Heart sounds are distant. Heart rate 86 bpm. Lungs reveal bibasilar crackles. Breath sounds are equal bilaterally. No wheezes or rhonchi. Saturations are 93% on 3 L by nasal cannula. Abdomen soft but obese. No masses or tenderness. Extremities are intact. No cyanosis or clubbing. There is chronic pitting edema of the lower extremities, with chronic hyperpigmentation and venous stasis.. Skin is without rash or lesion. Neurologic examination is brief but nonfocal. - Labs CBC & Chem 7: 08/09/23 09:01 08/09/23 09:01 Labs: Abnormal Lab Results - Last 24 Hours (Table) 08/08/23 08/08/23 08/08/23 Range/Units 11:49 16:16 20:06 RBC (4.30-5.90) m/uL Hgb (13.0-17.5) gm/dL Hct (39.0-53.0) % MCHC (31.0-37.0) g/dL RDW (11.5-15.5) % Neutrophils # (1.3-7.7) k/uL Lymphocytes # (1.0-4.8) k/uL BUN (9-20) mg/dL Creatinine (0.66-1.25) mg/dL Glucose (74-99) mg/dL POC Glucose (mg/dL) 137 H 147 H 155 H (70-110) mg/dL Alkaline Phosphatase (38-126) U/L 08/09/23 08/09/23 08/09/23 Range/Units 06:00 09:01 09:01 RBC 3.35 L (4.30-5.90) m/uL Hgb 9.1 L (13.0-17.5) gm/dL Hct 29.5 L (39.0-53.0) % MCHC 30.7 L (31.0-37.0) g/dL RDW 18.8 H (11.5-15.5) % Neutrophils # 8.8 H (1.3-7.7) k/uL Lymphocytes # 0.6 L (1.0-4.8) k/uL BUN 71 H (9-20) mg/dL Creatinine 1.87 H (0.66-1.25) mg/dL Glucose 145 H (74-99) mg/dL POC Glucose (mg/dL) 142 H (70-110) mg/dL Alkaline Phosphatase 159 H (38-126) U/L Assessment and Plan Assessment: Acute exacerbation of diastolic CHF, with significant cardiomegaly, pulmonary vascular congestion, and small effusions. Chronic bronchial asthma, stable. Acute on chronic hypoxemic and hypercapnic respiratory failure. Acute kidney injury. Acute metabolic encephalopathy. Anemia of chronic disease. Morbid obesity. Frequent falls. Obstructive sleep apnea syndrome, maintained on CPAP. Chronic venous stasis and hyperpigmentation of the lower extremities. Paroxysmal atrial fibrillation. Benign essential hypertension. History of hyperlipidemia. Plan: Plan dated 08/08/2023. The patient's doing reasonably well. He feels a bit improved. He's currently on 4 L of oxygen. Labs, x-rays, medications are reviewed. His lower extremities show evidence of chronic edema, hyperpigmentation, and venous stasis. We will continue to follow the patient, and make recommendations along the way. Prognosis is guarded. His asthma is relatively stable this time. Plan dated 08/09/2023. The patient's been weaned down to 3 L of oxygen. He does use of BiPAP device at nighttime. Clinically he appears relatively stable. Labs, x-rays, medications are reviewed. His lower extremity edema is somewhat improved. Most of what we see in the lower extremities are chronic changes. We will continue to follow and make recommendations along the way. The patient could likely be discharged in the next 24 hours or so. Time with Patient: Less than 30
[2023-08-09] MEDS ORDERED: guaiFENesin-Coden 100-10MG/5ML 10 ML CUP PO PRN (15:29)
[2023-08-09 16:24] LABS: Glucose,Whole Blood 152 mg/dL (70-110)
[2023-08-09] MEDS: RIVAROXABAN 15 MG TAB PO SCH (16:27)
[2023-08-09 20:32] LABS: Glucose,Whole Blood 202 mg/dL (70-110)
[2023-08-09] MEDS: MELATONIN 5 MG TABLET PO PRN (20:46)
[2023-08-09] MEDS: ATORVASTATIN 20 MG TAB PO SCH (20:46)
[2023-08-09] MEDS: LEVOFLOXACIN 750 MG TAB PO SCH (20:46)
[2023-08-09] MEDS: SERTRALINE 100 MG TAB PO SCH (20:47)
[2023-08-09] MEDS: ACETAMINOPHEN TAB 500 MG TAB PO PRN (20:47)
[2023-08-09] MEDS: GABAPENTIN 300 MG CAP PO SCH (20:47)
[2023-08-10] MEDS ORDERED: methylPREDNISolone SOD SUCCI 40 MG/ML 1 ML VIAL IV SCH
[2023-08-10] MEDS: ACETAMINOPHEN TAB 500 MG TAB PO PRN (04:41)
[2023-08-10 06:28] LABS: Glucose,Whole Blood 161 mg/dL (70-110)
[2023-08-10] MEDS: INSULIN ASPART (NovoLOG) 100 UNIT/ML VIAL SQ SCH ×4 (06:31→20:52)
[2023-08-10] MEDS: FUROSEMIDE 20 MG TAB PO SCH (07:33)
[2023-08-10] MEDS: TAMSULOSIN 0.4 MG CAP.ER.24H PO SCH (07:33)
[2023-08-10] MEDS: allopurinoL 100 MG TAB PO SCH (07:33)
[2023-08-10] MEDS: SPIRONOLACTONE 25 MG TAB PO SCH (07:34)
[2023-08-10] MEDS: MONTELUKAST 10 MG TAB PO SCH (07:34)
[2023-08-10] MEDS: PANTOPRAZOLE 40 MG TABLET PO SCH (07:34)
[2023-08-10] MEDS: METOPROLOL TARTRATE 25 MG TAB PO SCH (07:34)
[2023-08-10] MEDS: CHOLECALCIFEROL 25 MCG (1000 IU) TABLET PO SCH (07:34)
[2023-08-10] MEDS: DAPAGLIFLOZIN PROPANEDIOL 5 MG TABLET PO SCH (07:34)
--- NOTE | 2023-08-10 08:18 | P.PN ---
Subjective Progress Note Date: 08/09/23 HISTORY OF PRESENT ILLNESS: This is a 72-year-old male with a previous medical history significant for hypertension and hypertensive cardiovascular disease, hyperlipidemia, obesity with obstructive sleep apnea and obesity hypoventilation syndrome, chronic diastolic heart failure, asthma, hypothyroidism, anxiety and depressive disorder, peripheral neuropathy, patient was recently discharged from [facility] after he was admitted to the hospital for bilateral lower extremity cellulitis due to bilateral venous ulceration due to increased swelling in both lower extremity is, patient was treated with IV antibiotic as well as IV diuretics,then he was admitted for chest pain and was discharged to [facility] on the [place] and he was seen there this past Weekend and he was complaining of in creased cough ad increased shortness of breath and had a CXR at the facility that did showe evidence of Pneumonia and he was started on Avelox 400 mg po daily for 10 days and Mucinex 600 mg po bid for 10 day and he was on 4 L NC and was on Nebulized treatment yesterday the Nurse called me and stated that he is getting more confused his O2 was at 5 L NC and he was placed on CPAP and his O2 decreased to 2 L NC , patient felt better for a little bit unfortunately at midnight he fell and hit his head so he was sent to the ER and had CT scan of the brain that was negative and had CXR that showed Pulmonary edema, he was placed on BIPAP and was started on Lasix 40 mg IVP q 12 Hours and was admitted to the hospital for acute diastolic heart failure and pulmonary along with cardiology consultation 08/08: Patient is sitting up in bed continues to be somewhat confused and we will decrease his Solu-Mwedrol to 40 mg IVP Q 8 H and we will continue with current treatment plan, we will continue with PT and OT evaluation and the plan is to return to [facility] on [facility] on Friday. 08/09: Patient is feeling better today, we will discontinue Furosemide IVP and we will start Furosemide 60 mg po daily, we will continue with current treatment plan, await PT evaluation and we will continue with monitoring his ELIA, increase fluid intake and monitor CMP daily, REVIEW OF SYSTEMS: Constitutional: No documented fever, no chills, no night sweats. No weight change. No weakness, fatigue or lethargy. No daytime sleepiness. HEENT: No headache. No blurred vision or double vision, no loss of vision. No loss of Hearing, no ringing in the ears, no dizziness. No nasal drainage or congestion. No epistaxis. No sore throat. Lungs: positive for shortness of breath, occasional cough, minimal sputum pro duction. No wheezing. Reports dyspnea with activity. Cardiovascular: positive for chest pain, positive for lower extremity edema. No palpitations. No paroxysmal nocturnal dyspnea. No orthopnea. No lightheadedness or dizziness. No syncopal episodes. Abdominal: Reports abdominal pain. No nausea, vomiting. No diarrhea. No constipation. No bloody or tarry stools reports loss of appetite. Genitourinary: No dysuria, increased frequency, urgency. No urinary retention. Musculoskeletal: No myalgias. positive for muscle weakness, positive for gait dysfunction, positive for frequent falls. positive for back pain. No neck pain, bilateral hip pain Integumentary: No wounds, no lesions. No rash or pruritus. No unusual bruising. No change in hair or nails. Neurologic: No aphasia. No facial droop. No change in mentation. No head injury. No headache. No paralysis. No paresthesia. Psychiatric: No depression. No anxiety. No mood swings. Endocrine: No abnormal blood sugars. No weight change. PHYSICAL EXAMINATION: General: 72-year-old male lying down in bed in moderate respiratory distress HEENT: Head is atraumatic, normocephalic, pupils were equal round reactive to light and recommendation, extraocular muscle movement were intact, sclera nonicteric, conjunctivae were pale, mucous membranes of the mouth are somewhat dry. Neck: Supple, no JVP, normal carotid upstroke bilaterally, no lymphadenopathy. Chest: Decreased breath sounds at the bases, few rhonchi, no expiratory wheezes, no chest wall tenderness, no intercostal retractions. Heart: First heart sound is normal, second heart sound is normal, there is systolic ejection murmur 2/6 located in the left sternal border. Abdomen: Soft, nontender, nondistended, positive bowel sounds, obese. Extremities: There is +2 edema no calf tenderness DP +2 bilaterally, there is bilateral scabbed lesions in both shins free Neurologic examination: Patient is awake alert and oriented X 3, cranial nerves II-12 appear grossly intact, muscle power were 5 out of 5 in upper extremities and 3/5 in bilateral lower extremities ASSESSMENT AND PLAN: 1. Acute hypoxemic/ hypercarbic respiratory failure due to acute on chronic diastolic heart failure and COPD wit RAMYA and OHS . patient was started on Lasix 40 mg IV push every12 hours, monitor input and output and daily weight, decrease spironolactone 12.5 mg orally once every day, continue patient on Farxiga 10 mg orally once every day, metoprolol 25 mg orally twice every day. 2. Acute COPD exacerbation with partially treated gram negative Pneumonia. we will continue with Solu-Medrol 60 mg IVP Q 8 h, we will continue with Duoneb 3 ml Nebulization q6 hours and we will continue with O2 support, we will continue with Levaquin 750 mg po Q 48 hours 3. COPD/moderate persistent asthma and not in exacerbation with chronic hypoxemic and hypercarbic respiratory failure continue oxygen support continue DuoNeb 3 mg nebulization 4 times every day. 4. Acute kidney injury due to ATN and aggresive diuresis. we will increase fluid intake and protein intake and we will discontinue IV Lasix and we will start Furosemide 60 mg po in AM 5. Paroxysmal atrial fibrillation Continue patient on metoprolol 25 mg orally twice every day, on Xarelto 15 mg orally once every day 6. Hypertension and hypertensive cardiovascular disease. Continue patient on metoprolol 25 mg orally twice every day, monitor the patient blood pressure very closely. 7. Hyperlipidemia. Continue patient on atorvastatin 20 mg orally once every day, monitor lipid panel, keep LDL 55-70. 8. Enlarged prostate. Continue patient on tamsulosin 0.4 mg orally once every day. 9. Anxiety disorder. Continue patient on sertraline 100 mg orally once every day. 10. Neuropathy. Continue patient on gabapentin 300 mg at bedtime. 11. DVT prophylaxis. Continue Xarelto 15 mg po daily 12. GI prophylaxis. Continue patient on Protonix 40 mg orally once every day. 13. PT /OT evaluation. 14. sand car worker consult for Discharge planning. 15. Plan to return to [facility] on Friday Objective - Vital Signs Vital signs: Vital Signs Temp 97.7 F 08/09/23 11:12 Pulse 82 08/09/23 11:12 Resp 19 08/09/23 11:12 BP 101/60 08/09/23 11:12 Pulse Ox 93 L 08/09/23 11:12 FiO2 36 08/09/23 04:25 Intake & Output 08/08/23 08/09/23 08/09/23 18:59 06:59 18:59 Intake Total 318 500 180 Output Total 825 720 700 Balance -507 -220 -520 Weight 125.5 kg Intake: Oral 318 500 180 Output: Urine 825 720 700 Other: Voiding Method Indwelling Catheter Indwelling Catheter Indwelling Catheter - Labs CBC & Chem 7: 08/09/23 09:01 08/09/23 09:01 Labs: Abnormal Lab Results - Last 24 Hours (Table) 08/08/23 08/08/23 08/08/23 Range/Units 11:49 16:16 20:06 RBC (4.30-5.90) m/uL Hgb (13.0-17.5) gm/dL Hct (39.0-53.0) % MCHC (31.0-37.0) g/dL RDW (11.5-15.5) % Neutrophils # (1.3-7.7) k/uL Lymphocytes # (1.0-4.8) k/uL BUN (9-20) mg/dL Creatinine (0.66-1.25) mg/dL Glucose (74-99) mg/dL POC Glucose (mg/dL) 137 H 147 H 155 H (70-110) mg/dL Alkaline Phosphatase (38-126) U/L 08/09/23 08/09/23 08/09/23 Range/Units 06:00 09:01 09:01 RBC 3.35 L (4.30-5.90) m/uL Hgb 9.1 L (13.0-17.5) gm/dL Hct 29.5 L (39.0-53.0) % MCHC 30.7 L (31.0-37.0) g/dL RDW 18.8 H (11.5-15.5) % Neutrophils # 8.8 H (1.3-7.7) k/uL Lymphocytes # 0.6 L (1.0-4.8) k/uL BUN 71 H (9-20) mg/dL Creatinine 1.87 H (0.66-1.25) mg/dL Glucose 145 H (74-99) mg/dL POC Glucose (mg/dL) 142 H (70-110) mg/dL Alkaline Phosphatase 159 H (38-126) U/L
[2023-08-10] MEDS: IPRATROPIUM-ALBUTEROL 3 ML NEB INHALATION SCH ×4 (09:06→21:12)
[2023-08-10] MEDS: FORMOTEROL FUMARATE 20 MCG/2 ML NEBU INHALATION SCH ×2 (09:06→21:11)
[2023-08-10] MEDS: BUDESONIDE 1 MG/2 ML NEBU INHALATION SCH ×2 (09:06→21:11)
--- NOTE | 2023-08-10 10:51 | P.PN ---
Subjective Progress Note Date: 08/10/23 HISTORY OF PRESENT ILLNESS: This is a 72-year-old male with a previous medical history significant for hypertension and hypertensive cardiovascular disease, hyperlipidemia, obesity with obstructive sleep apnea and obesity hypoventilation syndrome, chronic diastolic heart failure, asthma, hypothyroidism, anxiety and depressive disorder, peripheral neuropathy, patient was recently discharged from [facility] after he was admitted to the hospital for bilateral lower extremity cellulitis due to bilateral venous ulceration due to increased swelling in both lower extremity is, patient was treated with IV antibiotic as well as IV diuretics,then he was admitted for chest pain and was discharged to [facility] on the [place] and he was seen there this past Weekend and he was complaining of in creased cough ad increased shortness of breath and had a CXR at the facility that did showe evidence of Pneumonia and he was started on Avelox 400 mg po daily for 10 days and Mucinex 600 mg po bid for 10 day and he was on 4 L NC and was on Nebulized treatment yesterday the Nurse called me and stated that he is getting more confused his O2 was at 5 L NC and he was placed on CPAP and his O2 decreased to 2 L NC , patient felt better for a little bit unfortunately at midnight he fell and hit his head so he was sent to the ER and had CT scan of the brain that was negative and had CXR that showed Pulmonary edema, he was placed on BIPAP and was started on Lasix 40 mg IVP q 12 Hours and was admitted to the hospital for acute diastolic heart failure and pulmonary along with cardiology consultation 08/08: Patient is sitting up in bed continues to be somewhat confused and we will decrease his Solu-Mwedrol to 40 mg IVP Q 8 H and we will continue with current treatment plan, we will continue with PT and OT evaluation and the plan is to return to [facility] on [facility] on Friday. 08/09: Patient is feeling better today, we will discontinue Furosemide IVP and we will start Furosemide 60 mg po daily, we will continue with current treatment plan, await PT evaluation and we will continue with monitoring his ELIA, increase fluid intake and monitor CMP daily. 08/10: Patient is feeling better today, he had an episode of spasmodic cough yesterday, Mucinex start the patient on Robitussin with codeine 5 mL every 6 hours as needed, he feels better today, he continues to have minimal phlegm production, he continues to be on Levaquin, discontinue his IV Solu-Medrol start the patient on prednisone 40 mg once every day, with a taper continue patient on nebulized treatment in the form of budesonide and formoterol, pulmonary and cardiology are following, patient is currently on oral Lasix, discontinue Lynn catheter, transfer the patient to [facility] on the [place] tomorrow morning REVIEW OF SYSTEMS: Constitutional: No documented fever, no chills, no night sweats. No weight change. No weakness, fatigue or lethargy. No daytime sleepiness. HEENT: No headache. No blurred vision or double vision, no loss of vision. No loss of Hearing, no ringing in the ears, no dizziness. No nasal drainage or con gestion. No epistaxis. No sore throat. Lungs: positive for shortness of breath, occasional cough, minimal sputum production. No wheezing. Reports dyspnea with activity. Cardiovascular: positive for chest pain, positive for lower extremity edema. No palpitations. No paroxysmal nocturnal dyspnea. No orthopnea. No lightheadedness or dizziness. No syncopal episodes. Abdominal: Reports abdominal pain. No nausea, vomiting. No diarrhea. No constipation. No bloody or tarry stools reports loss of appetite. Genitourinary: No dysuria, increased frequency, urgency. No urinary retention. Musculoskeletal: No myalgias. positive for muscle weakness, positive for gait dysfunction, positive for frequent falls. positive for back pain. No neck pain, bilateral hip pain Integumentary: No wounds, no lesions. No rash or pruritus. No unusual bruising. No change in hair or nails. Neurologic: No aphasia. No facial droop. No change in mentation. No head injury. No headache. No paralysis. No paresthesia. Psychiatric: No depression. No anxiety. No mood swings. Endocrine: No abnormal blood sugars. No weight change. PHYSICAL EXAMINATION: General: 72-year-old male lying down in bed in moderate respiratory distress HEENT: Head is atraumatic, normocephalic, pupils were equal round reactive to light and recommendation, extraocular muscle movement were intact, sclera nonic teric, conjunctivae were pale, mucous membranes of the mouth are somewhat dry. Neck: Supple, no JVP, normal carotid upstroke bilaterally, no lymphadenopathy. Chest: Decreased breath sounds at the bases, few rhonchi, no expiratory wheezes, no chest wall tenderness, no intercostal retractions. Heart: First heart sound is normal, second heart sound is normal, there is systolic ejection murmur 2/6 located in the left sternal border. Abdomen: Soft, nontender, nondistended, positive bowel sounds, obese. Extremities: There is +2 edema no calf tenderness DP +2 bilaterally, there is bilateral scabbed lesions in both shins free Neurologic examination: Patient is awake alert and oriented X 3, cranial nerves II-12 appear grossly intact, muscle power were 5 out of 5 in upper extremities and 3/5 in bilateral lower extremities ASSESSMENT AND PLAN: 1. Acute hypoxemic/ hypercarbic respiratory failure due to acute on chronic diastolic heart failure and COPD wit RAMYA and OHS . patient on Furosemide 60 mg po daily , monitor input and output and daily weight, decrease spironolactone 12.5 mg orally once every day, continue patient on Farxiga 10 mg orally once every day, metoprolol 25 mg orally twice every day. 2. Acute COPD exacerbation with partially treated gram negative Pneumonia. we will discontinue Solu-Medrol and start Prednisone 40 mg po daily , we will continue with Duoneb 3 ml Nebulization q6 hours and we will continue with O2 support, we will continue with Levaquin 750 mg po Q 48 hours 3. COPD/moderate persistent asthma and not in exacerbation with chronic hypoxemic and hypercarbic respiratory failure continue oxygen support continue DuoNeb 3 mg nebulization 4 times every day. 4. Acute kidney injury due to ATN and aggresive diuresis. we will increase fluid intake and protein intake, Furosemide 60 mg po in AM 5. Paroxysmal atrial fibrillation Continue patient on metoprolol 25 mg orally twice every day, on Xarelto 15 mg orally once every day 6. Hypertension and hypertensive cardiovascular disease. Continue patient on metoprolol 25 mg orally twice every day, monitor the patient blood pressure very closely. 7. Hyperlipidemia. Continue patient on atorvastatin 20 mg orally once every day, monitor lipid panel, keep LDL 55-70. 8. Enlarged prostate. Continue patient on tamsulosin 0.4 mg orally once every day. 9. Anxiety disorder. Continue patient on sertraline 100 mg orally once every day. 10. Neuropathy. Continue patient on gabapentin 300 mg at bedtime. 11. DVT prophylaxis. Continue Xarelto 15 mg po daily 12. GI prophylaxis. Continue patient on Protonix 40 mg orally once every day. 13. PT /OT evaluation. 14. house worker general consult for Discharge planning. 15. Plan to return to [facility] on Friday Objective - Vital Signs Vital signs: Vital Signs Temp 98.6 F 08/10/23 07:27 Pulse 67 08/10/23 07:27 Resp 18 08/10/23 07:27 BP 112/68 08/10/23 07:27 Pulse Ox 94 L 08/10/23 07:27 FiO2 36 08/10/23 04:28 Intake & Output 08/09/23 08/10/23 08/10/23 18:59 06:59 18:59 Intake Total 360 540 Output Total 1825 1450 Balance -1465 -910 Weight 113.5 kg Intake: Oral 360 540 Output: Urine 1825 1450 Uretheral (Lynn) 400 Other: Voiding Method Indwelling Catheter Indwelling Catheter Indwelling Catheter - Labs CBC & Chem 7: 08/09/23 09:01 08/09/23 09:01 Labs: Abnormal Lab Results - Last 24 Hours (Table) 08/09/23 08/09/23 08/09/23 Range/Units 09:01 09:01 11:36 RBC 3.35 L (4.30-5.90) m/uL Hgb 9.1 L (13.0-17.5) gm/dL Hct 29.5 L (39.0-53.0) % MCHC 30.7 L (31.0-37.0) g/dL RDW 18.8 H (11.5-15.5) % Neutrophils # 8.8 H (1.3-7.7) k/uL Lymphocytes # 0.6 L (1.0-4.8) k/uL BUN 71 H (9-20) mg/dL Creatinine 1.87 H (0.66-1.25) mg/dL Glucose 145 H (74-99) mg/dL POC Glucose (mg/dL) 175 H (70-110) mg/dL Alkaline Phosphatase 159 H (38-126) U/L 08/09/23 08/09/23 08/10/23 Range/Units 16:22 20:29 06:26 RBC (4.30-5.90) m/uL Hgb (13.0-17.5) gm/dL Hct (39.0-53.0) % MCHC (31.0-37.0) g/dL RDW (11.5-15.5) % Neutrophils # (1.3-7.7) k/uL Lymphocytes # (1.0-4.8) k/uL BUN (9-20) mg/dL Creatinine (0.66-1.25) mg/dL Glucose (74-99) mg/dL POC Glucose (mg/dL) 152 H 202 H 161 H (70-110) mg/dL Alkaline Phosphatase (38-126) U/L
--- NOTE | 2023-08-10 11:24 | P.PN ---
Subjective Progress Note Date: 08/10/23 I am seeing this patient today 08/07/2023 in the emergency room after he was found to be confused and fell at his [facility] late last night. Patient is a 72-year-old white male with past medical history significant for multiple hospital readmissions for diastolic congestive heart failure, paroxysmal atrial fibrillation anticoagulated on Xarelto, lower extremity cellulitis, morbid obesity, obstructive sleep apnea maintained on CPAP at bedtime, chronic oxygen dependence on 2 L nasal cannula, chronic bronchial asthma, hypertension, hyperlipidemia, and is a remote ex-smoker of over 30 years ago. He did have a recent hospital admission earlier this month for CHF exacerbation. Patient is currently a poor historian, he is confused and not cooperative with care. Apparently, he was brought in by EMS from [facility] after being found confused with decreased level of consciousness. There is concerns that he may have fallen out of bed and hit his head. On arrival to the emergency room, a CT of the head showed no acute intracranial process. No hemorrhage or mass effect. He was found to be hypoxic, and placed on BiPAP with settings 12/6 and FiO2 of 36%. When I came down to examine this patient, he was refusing BiPAP, and on 4 L/m nasal cannula. He is drowsy and oriented to place and self. He is able to provide minimal amount of information. He does not recall falling. He denies any cough, fevers, chills, myalgias. He denies any chest pain, heart palpitations. Chest x-ray on arrival was consistent with exacerbation of diastolic congestive heart failure. There is cardiomegaly, trace bilateral pleural effusions, and pulmonary edema. Patient has already be given a one-time dose of Lasix. He is currently wearing a brief. He does have significant lower extremity edema. There are multiple ulcerations especially on his right leg, and venous stasis changes. CBC on arrival showed a WBC count of 10.5, hemoglobin 9.4, hematocrit 30.2, platelets 174. BMP shows sodium 138, potassium 4.9, chloride 103, serum bicarb 25, BUN 41, creatinine 1.91, glucose 103. Troponins less than 0.012. NT proBNP elevated at 2820. ECG shows normal sinus rhythm without any obvious acute ischemic changes. I did deputy general counsel the patient on the need for BiPAP therapy at this time, he is agreeable to wear the BiPAP for now. Respiratory rate of 16, achieving tidal volumes around 500. He is full code. Patient will be monitored on the cardiac stepdown unit. Progress note dated 08/08/2023. 72-year-old male that was seen in consultation yesterday, for shortness of breath. The patient has history of multiple medical problems including chronic diastolic CHF, paroxysmal atrial fibrillation, lower extremity cellulitis, morbid obesity, sleep apnea syndrome, and chronic hypoxemic respiratory failure, among other things. The patient is seen today in room 372. He's not receiving any IV fluids. His BiPAP settings were 12/6 and 36% FiO2. When not on BiPAP, the patient's on 4 L by nasal cannula. He states that he is starting to feel better. The patient does have significant lower extremity edema, with chronic venostasis, and hyperpigmentation. White count 10.9, hemoglobin 8.8, hematocrit 29.1, and platelet count 177,000. Sodium 138, potassium 5.5, chlorides 103, CO2 26, BUN 52, and creatinine 2.04. Admission chest x-ray showed cardiomegaly, and significant pulmonary edema. The patient has small bilateral pleural effusions. Progress note dated 08/09/2023. The patient is again seen in room 372. The patient is on 3 L of oxygen. He does use BiPAP at night, with settings of 12/6, and 36%. He's not receiving any IV fluids. The patient was admitted with a diagnosis of CHF. Clinically, he is doing much better. White count is 9.8, hemoglobin 9.1, hematocrit 29.5, with a platelet count of 175,000. Sodium 137, potassium 5.1, chlorides 102, CO2 26, BUN 71, and creatinine 1.87. The patient is seen today 08/10/2023 in follow-up on the selective care unit. He is currently sitting up in bed. Awake and alert in no acute distress. He is maintaining O2 saturations in the 90s on 3 L/m per nasal cannula. He did utilize BiPAP last night 14/6 and 36% FiO2. No IV fluids. Blood glucose 161. Continued on DuoNeb inhalations, Pulmicort and Perforomist inhalations, IV Cymetra. Anticoagulated with Xarelto. On oral diuretics. Currently in a -2.3 L balance. Objective - Vital Signs Vital signs: Vital Signs Temp 98.6 F 08/10/23 07:27 Pulse 88 08/10/23 09:30 Resp 18 08/10/23 07:27 BP 112/68 08/10/23 07:27 Pulse Ox 94 L 08/10/23 07:27 FiO2 36 08/10/23 04:28 Intake & Output 08/09/23 08/10/23 08/10/23 18:59 06:59 18:59 Intake Total 360 540 180 Output Total 1825 1450 Balance -1465 -910 180 Weight 113.5 kg Intake: Oral 360 540 180 Output: Urine 1825 1450 Uretheral (Lynn) 400 Other: Voiding Method Indwelling Catheter Indwelling Catheter Indwelling Catheter - Exam 72-year-old male patient. No acute distress, oriented 3. Currently on 3 L by nasal cannula. HEENT examination is grossly unremarkable. Neck supple. Full range of motion. No adenopathy thyromegaly or neck vein distention. Cardiovascular examination reveals regular rhythm rate. S1-S2 normal. No S3 or S4. No discernible murmur noted. Heart sounds are distant. Lungs reveal bibasilar crackles. Breath sounds are equal bilaterally. No wheezes or rhonchi. Abdomen soft but obese. No masses or tenderness. Extremities are intact. No cyanosis or clubbing. There is chronic pitting edema of the lower extremities, with chronic hyperpigmentation and venous stasis.. Skin is without rash or lesion. Neurologic examination is brief but nonfocal. - Labs CBC & Chem 7: 08/09/23 09:01 08/09/23 09:01 Labs: Abnormal Lab Results - Last 24 Hours (Table) 08/09/23 08/09/23 08/09/23 Range/Units 11:36 16:22 20:29 POC Glucose (mg/dL) 175 H 152 H 202 H (70-110) mg/dL 08/10/23 Range/Units 06:26 POC Glucose (mg/dL) 161 H (70-110) mg/dL Assessment and Plan Assessment: Acute exacerbation of diastolic CHF, with significant cardiomegaly, pulmonary vascular congestion, and small effusions. Chronic bronchial asthma, stable. Acute on chronic hypoxemic and hypercapnic respiratory failure. Acute kidney injury. Acute metabolic encephalopathy. Anemia of chronic disease. Morbid obesity. Frequent falls. Obstructive sleep apnea syndrome, maintained on CPAP. Chronic venous stasis and hyperpigmentation of the lower extremities. Paroxysmal atrial fibrillation. Benign essential hypertension. History of hyperlipidemia. Plan: The patient was seen and evaluated Labs and medications reviewed Transition to prednisone Transition to oral diuretics Continue on bronchodilators Anticoagulated with Xarelto We will continue to follow Plan is to return to [facility] at discharge I have personally seen and examined the patient, performed the documentation and the assessment and plan as written. Number of minutes spent on the visit: 10.
--- NOTE | 2023-08-10 11:38 | P.PN ---
Subjective HISTORY OF PRESENT ILLNESS: This is a 72-year-old male with a past medical history significant for chronic hypoxic respiratory failure on home oxygen, hypertension, hyperlipidemia, obstructive sleep apnea, paroxysmal atrial fibrillation, and morbid obesity. Patient used to follow in the office with Dr. Lamb but has not been seen since May 2018. We have been asked to see the patient in consultation for congestive heart failure. Patient examined at the bedside. The patient was brought to the hospital from [facility] secondary to altered mental status and lethargy. The patient was found to be in acute congestive heart failure and was started on IV Lasix. The patient is lethargic at the time of examination. He is unable to give any history. He is on a bipap at the time of examination. * EKG reveals sinus mechanism with no signs of acute ischemia * Chest xray cardiomegaly. Severe pulmonary edema. Trace effusions. * Laboratory data: WBC 10.5. Hemoglobin 9.4. Platelet count 174. Sodium 138. Potassium 4.9. BUN 41. Creatinine 1.91. Magnesium 2.1. Troponin negative 2. ProBNP 2820. * Current home cardiac medications include Lipitor 20 mg at night, Aldactone 25 mg daily, Lasix 80 mg daily, metoprolol tartrate 25 mg twice a day, Xarelto 15 mg at dinner * Most recent echocardiogram obtained in March 2023 revealed ejection fraction 50-55%, mild tricuspid regurgitation * Cardiac catheterization history: 2015 revealed calcified proximal LAD, normal LV size and function 08/08 Seen and examined. Patient more alert today. Denies any chest pain or pressure. He has been maintained on diuretics with good urine output. Creatini ne mildly increased up to 2.0. 08/09 Patient seen and examined. Patient denies any chest pain or pressure. Has been receiving IV Lasix with creatinine mildly improved 2.0-1.8. Has had good urine output with Lynn approximately 2 L in the last 24hrs. has been intermittently going in and out of atrial flutter with heart rates still predominantly controlled in the 90s. 08/10 Patient seen and examined. Patient denies any chest pain or pressure. Creatinine was stable 1.8 yesterday however no repeat today. Patient was transitioned over to oral Lasix. Currently tolerating nasal cannula. PHYSICAL EXAM: VITAL SIGNS: Reviewed. GENERAL: Well-developed in no acute distress. HEENT: Head is normocephalic. Pupils are equal, round. Sclerae anicteric. Mucous membranes of the mouth are moist. Neck supple. No JVD or thyromegaly LUNGS: Respirations even and unlabored. Lungs diminished bilaterally with crackles noted HEART: Regular rate and rhythm. S1 and S2 heard. ABDOMEN: Soft. Nondistended. Nontender. EXTREMITIES: Normal range of motion. No clubbing or cyanosis. Peripheral pulses intact. Minimal lower extremity edema NEUROLOGIC: Alert and oriented ASSESSMENT: Altered mental status, improved Shortness of breath Acute on chronic heart failure with preserved LV systolic function, 50-55% Mild exacerbation of chronic bronchial asthma Acute kidney injury Chronic hypoxic respiratory failure on home oxygen Paroxysmal atrial fibrillation/ typical atrial flutter Obstructive sleep apnea Hypertension Hyperlipidemia PLAN: Continue oral Lasix Daily weights, accurate I&O, and monitoring of kidney function, appears stable Continue additional cardiac medications Patient having intermittent Aflutter with RVR and we will go up on Metoprolol to 37.5mg bid and monitor response. Objective - Vital Signs Vital signs: Vital Signs Temp 98.6 F 08/10/23 07:27 Pulse 88 08/10/23 09:30 Resp 18 08/10/23 07:27 BP 112/68 08/10/23 07:27 Pulse Ox 94 L 08/10/23 07:27 FiO2 36 08/10/23 04:28 Intake & Output 08/09/23 08/10/23 08/10/23 18:59 06:59 18:59 Intake Total 360 540 180 Output Total 1825 1450 Balance -1465 -910 180 Weight 113.5 kg Intake: Oral 360 540 180 Output: Urine 1825 1450 Uretheral (Lynn) 400 Other: Voiding Method Indwelling Catheter Indwelling Catheter Indwelling Catheter - Labs CBC & Chem 7: 08/09/23 09:01 08/09/23 09:01 Labs: Abnormal Lab Results - Last 24 Hours (Table) 08/09/23 08/09/23 08/09/23 Range/Units 11:36 16:22 20:29 POC Glucose (mg/dL) 175 H 152 H 202 H (70-110) mg/dL 08/10/23 Range/Units 06:26 POC Glucose (mg/dL) 161 H (70-110) mg/dL
[2023-08-10 11:45] LABS: Anisocytosis Slight; Basophils % (A) 0 %; Eosinophils % (A) 0 %; HCT 30.1 % (39.0-53.0); Hypochromasia Marked; Lymphocytes # (A) 0.5 k/uL (1.0-4.8); Lymphocytes % (A) 5 %; MCH 26.4 pg (25.0-35.0); MCHC 29.8 g/dL (31.0-37.0); MCV 88.4 fL (80.0-100.0); Mean Platelet Volume 7.4; Monocytes # (A) 0.8 k/uL (0-1.0); Monocytes % (A) 9 %; Neutrophils # (A) 7.8 k/uL (1.3-7.7); Neutrophils % (A) 84 %; Platelet Count 181 k/uL (150-450); RBC 3.41 m/uL (4.30-5.90); RDW 18.7 % (11.5-15.5); WBC 9.2 k/uL (3.8-10.6)
[2023-08-10 11:47] LABS: Glucose,Whole Blood 171 mg/dL (70-110)
[2023-08-10 12:20] LABS: ALT 30 U/L (4-49); AST 51 U/L (17-59); African American GFR (CKD) 48 (>60 ml/min/1.73 sqM); Albumin 3.7 g/dL (3.5-5.0); Alkaline Phosphatase 174 U/L (38-126); Anion Gap 12 mmol/L; Blood Urea Nitrogen 70 mg/dL (9-20); Calcium 9.1 mg/dL (8.4-10.2); Carbon Dioxide 25 mmol/L (22-30); Chloride 101 mmol/L (98-107); Glucose 125 mg/dL (74-99); Magnesium 2.6 mg/dL (1.6-2.3); Non-African American GFR(CKD) 41 (>60 ml/min/1.73 sqM); Potassium 4.9 mmol/L (3.5-5.1); Sodium 138 mmol/L (137-145); Total Bilirubin 0.7 mg/dL (0.2-1.3); Total Protein 7.5 g/dL (6.3-8.2)
[2023-08-10 16:41] LABS: Glucose,Whole Blood 177 mg/dL (70-110)
[2023-08-10] MEDS: RIVAROXABAN 15 MG TAB PO SCH (17:14)
[2023-08-10 20:38] LABS: Glucose,Whole Blood 167 mg/dL (70-110)
[2023-08-10] MEDS: SERTRALINE 100 MG TAB PO SCH (20:53)
[2023-08-10] MEDS: METOPROLOL TARTRATE 12.5 MG TAB PO SCH (20:53)
[2023-08-10] MEDS: GABAPENTIN 300 MG CAP PO SCH (20:53)
[2023-08-10] MEDS: MELATONIN 5 MG TABLET PO PRN (20:53)
[2023-08-10] MEDS: ATORVASTATIN 20 MG TAB PO SCH (20:53)
[2023-08-11 06:15] LABS: Glucose,Whole Blood 119 mg/dL (70-110)
[2023-08-11] MEDS: INSULIN ASPART (NovoLOG) 100 UNIT/ML VIAL SQ SCH ×2 (06:15→12:20)
[2023-08-11] MEDS: IPRATROPIUM-ALBUTEROL 3 ML NEB INHALATION SCH ×3 (08:05→15:35)
[2023-08-11] MEDS: BUDESONIDE 1 MG/2 ML NEBU INHALATION SCH (08:05)
[2023-08-11] MEDS: FORMOTEROL FUMARATE 20 MCG/2 ML NEBU INHALATION SCH (08:05)
[2023-08-11 08:59] LABS: Anisocytosis Slight; Basophils % (A) 0 %; Eosinophils # (A) 0.1 k/uL (0-0.7); Eosinophils % (A) 1 %; HGB 9.4 gm/dL (13.0-17.5); Hypochromasia Marked; Lymphocytes # (A) 0.9 k/uL (1.0-4.8); Lymphocytes % (A) 8 %; MCH 26.3 pg (25.0-35.0); MCHC 29.4 g/dL (31.0-37.0); MCV 89.2 fL (80.0-100.0); Mean Platelet Volume 8.2; Monocytes # (A) 1.2 k/uL (0-1.0); Monocytes % (A) 11 %; Neutrophils # (A) 8.6 k/uL (1.3-7.7); Neutrophils % (A) 78 %; Platelet Count 176 k/uL (150-450); RBC 3.58 m/uL (4.30-5.90); RDW 18.3 % (11.5-15.5)
[2023-08-11 09:00] LABS: ALT 48 U/L (4-49); AST 74 U/L (17-59); African American GFR (CKD) 49 (>60 ml/min/1.73 sqM); Albumin 3.8 g/dL (3.5-5.0); Alkaline Phosphatase 159 U/L (38-126); Anion Gap 7 mmol/L; Blood Urea Nitrogen 63 mg/dL (9-20); Calcium 9.3 mg/dL (8.4-10.2); Carbon Dioxide 28 mmol/L (22-30); Chloride 104 mmol/L (98-107); Glucose 109 mg/dL (74-99); Non-African American GFR(CKD) 42 (>60 ml/min/1.73 sqM); Potassium 4.7 mmol/L (3.5-5.1); Sodium 139 mmol/L (137-145); Total Bilirubin 0.9 mg/dL (0.2-1.3); Total Protein 7.5 g/dL (6.3-8.2)
[2023-08-11] MEDS ORDERED: predniSONE 20 MG TAB PO SCH (09:00)
[2023-08-11] MEDS ORDERED: NON FORMULARY DRUG (Tirzepatide [Mounjaro] 2.5 MG/0.5 ML Pen.Injctr) SQ SCH (09:00)
[2023-08-11] MEDS: FUROSEMIDE 20 MG TAB PO SCH (09:02)
[2023-08-11] MEDS: METOPROLOL TARTRATE 12.5 MG TAB PO SCH (09:02)
[2023-08-11] MEDS: CHOLECALCIFEROL 25 MCG (1000 IU) TABLET PO SCH (09:02)
[2023-08-11] MEDS: DAPAGLIFLOZIN PROPANEDIOL 5 MG TABLET PO SCH (09:02)
[2023-08-11] MEDS: SPIRONOLACTONE 25 MG TAB PO SCH (09:02)
[2023-08-11] MEDS: TAMSULOSIN 0.4 MG CAP.ER.24H PO SCH (09:03)
[2023-08-11] MEDS: PANTOPRAZOLE 40 MG TABLET PO SCH (09:03)
[2023-08-11] MEDS: allopurinoL 100 MG TAB PO SCH (09:03)
[2023-08-11] MEDS: MONTELUKAST 10 MG TAB PO SCH (09:03)
[2023-08-11 09:08] VITALS: TEMP 97.6
[2023-08-11 11:38] LABS: Glucose,Whole Blood 144 mg/dL (70-110)
[2023-08-11 12:39] VITALS: BP 132/70
--- NOTE | 2023-08-11 13:10 | P.DS ---
Providers Date of admission: 08/07/23 02:18 Expected date of discharge: 08/11/23 Attending physician: Alison Leon Consults: 08/07/23 02:18 Consult Physician Routine Consulting Provider: Chris De Luna Consult Reason/Comments: chf Do you want consulting provider notified?: Yes 08/07/23 02:22 Consult Physician Routine Consulting Provider: Andrez Boone Consult Reason/Comments: copd Do you want consulting provider notified?: Yes Primary care physician: Alison Leon Hospital Course: HISTORY OF PRESENT ILLNESS: This is a 72-year-old male with a previous medical history significant for hypertension and hypertensive cardiovascular disease, hyperlipidemia, obesity with obstructive sleep apnea and obesity hypoventilation syndrome, chronic diastolic heart failure, asthma, hypothyroidism, anxiety and depressive disorder, peripheral neuropathy, patient was recently discharged from [facility] after he was admitted to the hospital for bilateral lower extremity cellulitis due to bilateral venous ulceration due to increased swelling in both lower extremity is, patient was treated with IV antibiotic as well as IV diuretics,then he was admitted for chest pain and was discharged to [facility] and he was seen there this past Weekend and he was complaining of increased cough ad increased shortness of breath and had a CXR at the facility that did showe evidence of Pneumonia and he was started on Avelox 400 mg po daily for 10 days and Mucinex 600 mg po bid for 10 day and he was on 4 L NC and was on Nebulized treatment yesterday the Nurse called me and stated that he is getting more confused his O2 was at 5 L NC and he was placed on CPAP and his O2 decreased to 2 L NC , patient felt better for a little bit unfortunately at midnight he fell and hit his head so he was sent to the ER and had CT scan of the brain that was negative and had CXR that showed Pulmonary edema, he was placed on BIPAP and was started on Lasix 40 mg IVP q 12 Hours and was admitted to the hospital for acute diastolic heart failure and pulmonary along with cardiology consultation 08/08: Patient is sitting up in bed continues to be somewhat confused and we will decrease his Solu-Mwedrol to 40 mg IVP Q 8 H and we will continue with current treatment plan, we will continue with PT and OT evaluation and the plan is to return to [facility] on Friday. 08/09: Patient is feeling better today, we will discontinue Furosemide IVP and we will start Furosemide 60 mg po daily, we will continue with current treatment plan, await PT evaluation and we will continue with monitoring his ELIA, increase fluid intake and monitor CMP daily. 08/10: Patient is feeling better today, he had an episode of spasmodic cough yesterday, Mucinex start the patient on Robitussin with codeine 5 mL every 6 hours as needed, he feels better today, he continues to have minimal phlegm production, he continues to be on Levaquin, discontinue his IV Solu-Medrol start the patient on prednisone 40 mg once every day, with a taper continue patient on nebulized treatment in the form of budesonide and formoterol, pulmonary and cardiology are following, patient is currently on oral Lasix, discontinue Lynn catheter, transfer the patient to [facility] on the [place] tomorrow morning Discharge Diagnoses: 1. Acute hypoxemic/ hypercarbic respiratory failure due to acute on chronic diastolic heart failure and COPD wit RAMYA and OHS . 2. Acute COPD exacerbation with partially treated gram negative Pneumonia. 3. COPD/moderate persistent asthma and not in exacerbation with chronic hyp oxemic and hypercarbic respiratory failure 4. Acute kidney injury due to ATN and aggresive diuresis. 5. Paroxysmal atrial fibrillation /Atrial Flutter 6. Hypertension and hypertensive cardiovascular disease. 7. Hyperlipidemia. 8. Enlarged prostate. 9. Anxiety disorder. 10. Neuropathy. Patient Condition at Discharge: Fair Plan - Discharge Summary Discharge Rx Participant: Yes New Discharge Prescriptions: No Action Metoprolol Tartrate 25 mg PO BID allopurinoL [Zyloprim] 200 mg PO DAILY Sertraline [Zoloft] 100 mg PO HS Spironolactone [Aldactone] 25 mg PO DAILY Atorvastatin [Lipitor] 20 mg PO HS Tamsulosin [Flomax] 0.4 mg PO DAILY Ipratropium-Albuterol Nebulize [Duoneb 0.5 mg-3 mg/3 ml Soln] 3 ml INHALATION RT-Q6H Baclofen [Lioresal] 10 mg PO BID PRN tab PRN Reason: Muscle Spasm Rivaroxaban [Xarelto] 15 mg PO W/SUPPER #30 tab Furosemide [Lasix] 80 mg PO DAILY #0 Omeprazole [PriLOSEC] 20 mg PO DAILY Montelukast [Singulair] 10 mg PO DAILY Magnesium Oxide [Mag-Ox] 400 mg PO DAILY guaiFENesin [guaiFENesin ER] 600 mg PO BID Moxifloxacin HCl [Avelox] 400 mg PO HS Acetaminophen Tab [Tylenol] 500 mg PO Q6H PRN PRN Reason: Pain Cholecalciferol [Vitamin D3 (25 Mcg = 1000 Iu)] 50 mcg PO DAILY Potassium Chloride ER [K-Dur 20] 20 meq PO BID SILVER sulfADIAZINE Cream [Silvadene 1% Cream] 1 applic TOPICAL DAILY each Gabapentin [Neurontin] 300 mg PO HS #3 cap Benzonatate [Tessalon Perles] 200 mg PO TID PRN cap PRN Reason: Cough Tirzepatide [Mounjaro] 2.5 mg SQ MO Melatonin 10 mg PO HS PRN PRN Reason: Insomnia Dapagliflozin Propanediol [Farxiga] 5 mg PO DAILY Discharge Medication List Metoprolol Tartrate 25 mg PO BID 11/02/14 [History] allopurinoL [Zyloprim] 200 mg PO DAILY 11/02/14 [History] Sertraline [Zoloft] 100 mg PO HS 04/04/17 [History] Atorvastatin [Lipitor] 20 mg PO HS 07/14/19 [History] Spironolactone [Aldactone] 25 mg PO DAILY 07/14/19 [History] Tamsulosin [Flomax] 0.4 mg PO DAILY 07/14/19 [History] Ipratropium-Albuterol Nebulize [Duoneb 0.5 mg-3 mg/3 ml Soln] 3 ml INHALATION RT-Q6H 08/19/19 [History] Acetaminophen Tab [Tylenol] 500 mg PO Q6H PRN 03/26/23 [History] Cholecalciferol [Vitamin D3 (25 Mcg = 1000 Iu)] 50 mcg PO DAILY 03/26/23 [History] Potassium Chloride ER [K-Dur 20] 20 meq PO BID 03/26/23 [History] Baclofen [Lioresal] 10 mg PO BID PRN tab 03/31/23 [Rx] SILVER sulfADIAZINE Cream [Silvadene 1% Cream] 1 applic TOPICAL DAILY each 03/31/23 [Rx] Rivaroxaban [Xarelto] 15 mg PO W/SUPPER #30 tab 06/25/23 [Rx] Furosemide [Lasix] 80 mg PO DAILY #0 07/09/23 [Rx] Benzonatate [Tessalon Perles] 200 mg PO TID PRN cap 07/17/23 [Rx] Gabapentin [Neurontin] 300 mg PO HS #3 cap 07/17/23 [Rx] Dapagliflozin Propanediol [Farxiga] 5 mg PO DAILY 08/07/23 [History] Magnesium Oxide [Mag-Ox] 400 mg PO DAILY 08/07/23 [History] Melatonin 10 mg PO HS PRN 08/07/23 [History] Montelukast [Singulair] 10 mg PO DAILY 08/07/23 [History] Moxifloxacin HCl [Avelox] 400 mg PO HS 08/07/23 [History] Omeprazole [PriLOSEC] 20 mg PO DAILY 08/07/23 [History] Tirzepatide [Mounjaro] 2.5 mg SQ MO 08/07/23 [History] guaiFENesin [guaiFENesin ER] 600 mg PO BID 08/07/23 [History] Follow up Appointment(s)/Referral(s): Alison Leon MD [Primary Care Provider] - 1-2 days
--- NOTE | 2023-08-11 13:34 | P.PN ---
Subjective Progress Note Date: 08/11/23 I am seeing this patient today 08/07/2023 in the emergency room after he was found to be confused and fell at his [facility] late last night. Patient is a 72-year-old white male with past medical history significant for multiple hospital readmissions for diastolic congestive heart failure, paroxysmal atrial fibrillation anticoagulated on Xarelto, lower extremity cellulitis, morbid obesity, obstructive sleep apnea maintained on CPAP at bedtime, chronic oxygen dependence on 2 L nasal cannula, chronic bronchial asthma, hypertension, hyperlipidemia, and is a remote ex-smoker of over 30 years ago. He did have a recent hospital admission earlier this month for CHF exacerbation. Patient is currently a poor historian, he is confused and not cooperative with care. Apparently, he was brought in by EMS from [facility] after being found confused with decreased level of consciousness. There is concerns that he may have fallen out of bed and hit his head. On arrival to the emergency room, a CT of the head showed no acute intracranial process. No hemorrhage or mass effect. He was found to be hypoxic, and placed on BiPAP with settings 12/6 and FiO2 of 36%. When I came down to examine this patient, he was refusing BiPAP, and on 4 L/m nasal cannula. He is drowsy and oriented to place and self. He is able to provide minimal amount of information. He does not recall falling. He denies any cough, fevers, chills, myalgias. He denies any chest pain, heart palpitations. Chest x-ray on arrival was consistent with exacerbation of diastolic congestive heart failure. There is cardiomegaly, trace bilateral pleural effusions, and pulmonary edema. Patient has already be given a one-time dose of Lasix. He is currently wearing a brief. He does have significant lower extremity edema. There are multiple ulcerations especially on his right leg, and venous stasis changes. CBC on arrival showed a WBC count of 10.5, hemoglobin 9.4, hematocrit 30.2, platelets 174. BMP shows sodium 138, potassium 4.9, chloride 103, serum bicarb 25, BUN 41, creatinine 1.91, glucose 103. Troponins less than 0.012. NT proBNP elevated at 2820. ECG shows normal sinus rhythm without any obvious acute ischemic changes. I did developmental training counselor the patient on the need for BiPAP therapy at this time, he is agreeable to wear the BiPAP for now. Respiratory rate of 16, achieving tidal volumes around 500. He is full code. Patient will be monitored on the cardiac stepdown unit. Progress note dated 08/08/2023. 72-year-old male that was seen in consultation yesterday, for shortness of breath. The patient has history of multiple medical problems including chronic diastolic CHF, paroxysmal atrial fibrillation, lower extremity cellulitis, morbid obesity, sleep apnea syndrome, and chronic hypoxemic respiratory failure, among other things. The patient is seen today in room 372. He's not receiving any IV fluids. His BiPAP settings were 12/6 and 36% FiO2. When not on BiPAP, the patient's on 4 L by nasal cannula. He states that he is starting to feel better. The patient does have significant lower extremity edema, with chronic venostasis, and hyperpigmentation. White count 10.9, hemoglobin 8.8, hematocrit 29.1, and platelet count 177,000. Sodium 138, potassium 5.5, chlorides 103, CO2 26, BUN 52, and creatinine 2.04. Admission chest x-ray showed cardiomegaly, and significant pulmonary edema. The patient has small bilateral pleural effusions. Progress note dated 08/09/2023. The patient is again seen in room 372. The patient is on 3 L of oxygen. He does use BiPAP at night, with settings of 12/6, and 36%. He's not receiving any IV fluids. The patient was admitted with a diagnosis of CHF. Clinically, he is doing much better. White count is 9.8, hemoglobin 9.1, hematocrit 29.5, with a platelet count of 175,000. Sodium 137, potassium 5.1, chlorides 102, CO2 26, BUN 71, and creatinine 1.87. The patient is seen today 08/10/2023 in follow-up on the selective care unit. He is currently sitting up in bed. Awake and alert in no acute distress. He is maintaining O2 saturations in the 90s on 3 L/m per nasal cannula. He did utilize BiPAP last night 14/6 and 36% FiO2. No IV fluids. Blood glucose 161. Continued on DuoNeb inhalations, Pulmicort and Perforomist inhalations, IV Cymetra. Anticoagulated with Xarelto. On oral diuretics. Currently in a -2.3 L balance. 08/11 2023, the patient is comfortable on 3 L of O2 nasal cannula, and the patient denies having any specific complaints. He states that his overall respiratory status is back to baseline. He is obese and is quite debilitated and he carries a body mass index of 40.1. He has diastolic heart failure and multiple hospital physician for decompensated CHF, paroxysmal A. fib, maintained on anticoagulation, obstructive sleep apnea maintained on CPAP therapy and chronic hypoxic respiratory failure on O2 at 2 L. He has hypertension hyperlipidemia as comorbid conditions. He is an ex-smoker. He was supported with BiPAP during the current admission. His creatinine is also improved and currently his creatinine is down to 1.6. For the time being, the patient is on DuoNeb updrafts, patient is on Lasix 60 mg by mouth daily. Patient is also on Aldactone 12.5 mg by mouth daily. Patient is completing a prednisone burst taper starting with 40 mg and the patient is also on long-term and coagulation with Xarelto. Objective - Vital Signs Vital signs: Vital Signs Temp 97.6 F 08/11/23 08:53 Pulse 57 L 08/11/23 08:53 Resp 20 08/11/23 08:53 BP 94/54 08/11/23 08:53 Pulse Ox 95 08/11/23 08:53 FiO2 36 08/11/23 08:05 Intake & Output 08/10/23 08/11/23 08/11/23 18:59 06:59 18:59 Intake Total 540 180 Output Total 1450 800 300 Balance -910 -800 -120 Weight 126.8 kg Intake: Oral 540 180 Output: Urine 1450 800 300 Other: Voiding Method Urinal Urinal Urinal Diaper # Voids 1 # Bowel Movements 1 - Exam 72-year-old male patient. No acute distress, oriented 3. Currently on 3 L by nasal cannula. HEENT examination is grossly unremarkable. Neck supple. Full range of motion. No adenopathy thyromegaly or neck vein distention. Cardiovascular examination reveals regular rhythm rate. S1-S2 normal. No S3 or S4. No discernible murmur noted. Heart sounds are distant. Lungs reveal bibasilar crackles. Breath sounds are equal bilaterally. No wheezes or rhonchi. Abdomen soft but obese. No masses or tenderness. Extremities are intact. No cyanosis or clubbing. There is chronic pitting edema of the lower extremities, with chronic hyperpigmentation and venous stasis.. Skin is without rash or lesion. Neurologic examination is brief but nonfocal. - Labs CBC & Chem 7: 08/11/23 07:49 08/11/23 07:49 Labs: Abnormal Lab Results - Last 24 Hours (Table) 08/10/23 08/10/23 08/10/23 Range/Units 10:56 10:56 11:45 WBC (3.8-10.6) k/uL RBC 3.41 L (4.30-5.90) m/uL Hgb 9.0 L (13.0-17.5) gm/dL Hct 30.1 L (39.0-53.0) % MCHC 29.8 L (31.0-37.0) g/dL RDW 18.7 H (11.5-15.5) % Neutrophils # 7.8 H (1.3-7.7) k/uL Lymphocytes # 0.5 L (1.0-4.8) k/uL Monocytes # (0-1.0) k/uL BUN 70 H (9-20) mg/dL Creatinine 1.64 H (0.66-1.25) mg/dL Glucose 125 H (74-99) mg/dL POC Glucose (mg/dL) 171 H (70-110) mg/dL Magnesium 2.6 H (1.6-2.3) mg/dL AST (17-59) U/L Alkaline Phosphatase 174 H (38-126) U/L 08/10/23 08/10/23 08/11/23 Range/Units 16:39 20:37 06:14 WBC (3.8-10.6) k/uL RBC (4.30-5.90) m/uL Hgb (13.0-17.5) gm/dL Hct (39.0-53.0) % MCHC (31.0-37.0) g/dL RDW (11.5-15.5) % Neutrophils # (1.3-7.7) k/uL Lymphocytes # (1.0-4.8) k/uL Monocytes # (0-1.0) k/uL BUN (9-20) mg/dL Creatinine (0.66-1.25) mg/dL Glucose (74-99) mg/dL POC Glucose (mg/dL) 177 H 167 H 119 H (70-110) mg/dL Magnesium (1.6-2.3) mg/dL AST (17-59) U/L Alkaline Phosphatase (38-126) U/L 08/11/23 08/11/23 Range/Units 07:49 07:49 WBC 11.0 H (3.8-10.6) k/uL RBC 3.58 L (4.30-5.90) m/uL Hgb 9.4 L (13.0-17.5) gm/dL Hct 32.0 L (39.0-53.0) % MCHC 29.4 L (31.0-37.0) g/dL RDW 18.3 H (11.5-15.5) % Neutrophils # 8.6 H (1.3-7.7) k/uL Lymphocytes # 0.9 L (1.0-4.8) k/uL Monocytes # 1.2 H (0-1.0) k/uL BUN 63 H (9-20) mg/dL Creatinine 1.60 H (0.66-1.25) mg/dL Glucose 109 H (74-99) mg/dL POC Glucose (mg/dL) (70-110) mg/dL Magnesium (1.6-2.3) mg/dL AST 74 H (17-59) U/L Alkaline Phosphatase 159 H (38-126) U/L Assessment and Plan Plan: Acute exacerbation of diastolic CHF, with significant cardiomegaly, pulmonary vascular congestion, and small effusions. Echocardiogram from 03/27/2023 showed ejection fraction of left ventricle in the order of 50-55%, mild RV dilatation, no significant valve abnormalities Shortness of breath secondary to above although there is other contributing factors including COPD/asthma and obesity with obstructive sleep apnea Chronic bronchial asthma, stable. Acute on chronic hypoxemic and hypercapnic respiratory failure. Paroxysmal A. fib maintenance and he is admitted on anticoagulation with with Xarelto Acute kidney injury, improving and the creatinine is down to 1.6. He has chron ic kidney disease, stage III. Acute metabolic encephalopathy. Anemia of chronic disease. Morbid obesity. Frequent falls. Obstructive sleep apnea syndrome, maintained on CPAP. Chronic venous stasis and hyperpigmentation of the lower extremities. Paroxysmal atrial fibrillation. Benign essential hypertension. History of hyperlipidemia. Plan: Agree on the current management Home O2 On CPAP Continue diuretics and the patient is currently on a combination of Lasix and Aldactone DuoNeb updrafts Long-term anticoagulation with Xarelto Possible discharge in the next 24 hours High risk for readmissions recent above-mentioned comorbidities.
[2023-08-11 15:37] VITALS: PULSE 88; RESP 18
--- NOTE | 2023-08-12 06:02 | PN ---
PROGRESS NOTE SUBJECTIVE: Mr. Rodriguez has history of diastolic heart failure, paroxysmal atrial fibrillation. He is doing better today. He was on BiPAP, but his breathing has improved. We will gradually increase activity, place him on oral Lasix and based on clinical course, make further recommendation, but we will plan for discharge soon. OBJECTIVE: VITAL SIGNS: Stable. NECK: JVD 1 cm. No carotid bruit. CARDIOVASCULAR: S1-S2 heard normally. Short systolic murmur. Rhythm appears to be irregular. LUNGS: Reveal diminished air entry. ABDOMEN: Unchanged. LOWER EXTREMITIES: Unchanged. PLAN: Plan is to continue current medications. Increase activity. Plan for discharge. MMODL / IJN: [id number] /
== END 2023-08-11 15:58 | DRG 291 ==
LOC: EC 23:44 → 3SCARD 08-07 02:18
PROVIDERS: ADMIT Internal Medicine; ATTEND Internal Medicine
PROC: 5A09357 Assistance with Respiratory Ventilation, Less than 24 Consecutive Hours, Continuous Positive Airway Pressure (ICD-10-PCS; principal; 2023-08-07)
DX: I11.0 Hypertensive heart disease with heart failure (principal); G93.41 Metabolic encephalopathy; I50.33 Acute on chronic diastolic (congestive) heart failure; J15.6 Pneumonia due to other Gram-negative bacteria; J96.21 Acute and chronic respiratory failure with hypoxia; J96.22 Acute and chronic respiratory failure with hypercapnia; N17.0 Acute kidney failure with tubular necrosis; I48.3 Typical atrial flutter; J44.0 Chronic obstructive pulmonary disease with (acute) lower respiratory infection; J44.1 Chronic obstructive pulmonary disease with (acute) exacerbation; J45.41 Moderate persistent asthma with (acute) exacerbation; Z68.41 Body mass index [BMI] 40.0-44.9, adult; E66.2 Morbid (severe) obesity with alveolar hypoventilation; I48.0 Paroxysmal atrial fibrillation; F32.A Depression, unspecified; E03.9 Hypothyroidism, unspecified; I87.8 Other specified disorders of veins; N40.0 Benign prostatic hyperplasia without lower urinary tract symptoms; D63.8 Anemia in other chronic diseases classified elsewhere; R29.6 Repeated falls; Z99.81 Dependence on supplemental oxygen; Z79.01 Long term (current) use of anticoagulants; Z71.3 Dietary counseling and surveillance; G62.9 Polyneuropathy, unspecified; K21.9 Gastro-esophageal reflux disease without esophagitis; Z28.21 Immunization not carried out because of patient refusal; Z96.652 Presence of left artificial knee joint; M10.9 Gout, unspecified; Z87.01 Personal history of pneumonia (recurrent); Z82.49 Family history of ischemic heart disease and other diseases of the circulatory system; Z82.0 Family history of epilepsy and other diseases of the nervous system; F41.9 Anxiety disorder, unspecified; Z79.899 Other long term (current) drug therapy; Z87.891 Personal history of nicotine dependence
CPT/HCPCS: 36415; 36600; 70450; 71045; 72125; 80053; 82805; 83605; 83735; 83880; 84100; 84484; 85025; 85610; 85730; 93005; 94640; 94660; 94760; 96374; 96375; 99291

== ENCOUNTER 2023-08-23 08:17 | Inpatient (IN) | payer MEDICARE, BC ==
[2023-08-23] MEDS ORDERED: FUROSEMIDE 10 MG/ML 4 ML VIAL IV STA (08:45)
[2023-08-23 08:52] LABS: INR 1.1 (<1.2); Partial Thromboplastin Time 30.2 sec (22.0-30.0); Prothrombin Time 11.7 sec (9.0-12.0)
--- NOTE | 2023-08-23 08:54 | ED ---
General Adult HPI - General Chief complaint: Upper Respiratory Infection Stated complaint: SOB Time Seen by Provider: 08/23/23 08:25 Source: patient, EMS, RN notes reviewed, old records reviewed Mode of arrival: EMS Limitations: no limitations - History of Present Illness Initial comments: This is a 73-year-old male who presents emergency Department from the senior living. Patient is normally supposed be wearing CPAP at night however he refuses to do so. This morning when he awoke he was oxygenating in the 70s. When EMS arrived they put him on BiPAP in patient came up to the 90s over a five-minute period. Patient has no complaints of pain he does state he was short of breath earlier. Patient denies any cough patient denies any vomiting or diarrhea. Patient denies chest pain or belly pain - Related Data Home Medications Medication Instructions Recorded Confirmed Sertraline [Zoloft] 100 mg PO HS 04/04/17 08/23/23 Atorvastatin [Lipitor] 20 mg PO HS 07/14/19 08/23/23 Tamsulosin [Flomax] 0.4 mg PO DAILY 07/14/19 08/23/23 Ipratropium-Albuterol Nebulize 3 ml INHALATION RT-Q6H 08/19/19 08/23/23 [Duoneb 0.5 mg-3 mg/3 ml Soln] Acetaminophen Tab [Tylenol] 500 mg PO Q6H PRN 03/26/23 08/23/23 Cholecalciferol [Vitamin D3 (25 50 mcg PO DAILY 03/26/23 08/23/23 Mcg = 1000 Iu)] Dapagliflozin Propanediol [Farxiga] 5 mg PO DAILY 08/07/23 08/23/23 Magnesium Oxide [Mag-Ox] 400 mg PO DAILY 08/07/23 08/23/23 Montelukast [Singulair] 10 mg PO HS 08/07/23 08/23/23 Omeprazole [PriLOSEC] 20 mg PO DAILY 08/07/23 08/23/23 Tirzepatide [Mounjaro] 2.5 mg SQ MO 08/07/23 08/23/23 Ammonium Lactate Lotion 1 applic TOPICAL DAILY 08/23/23 08/23/23 [Lac-Hydrin 12% Lotion] Metoprolol Tartrate [Lopressor] 37.5 mg PO BID 08/23/23 08/23/23 allopurinoL 200 mg PO DAILY 08/23/23 08/23/23 predniSONE [Deltasone] See Taper PO DAILY 08/23/23 08/23/23 Previous Rx's Medication Instructions Recorded Baclofen [Lioresal] 10 mg PO BID PRN tab 03/31/23 Rivaroxaban [Xarelto] 15 mg PO W/SUPPER #30 tab 06/25/23 Benzonatate [Tessalon Perles] 200 mg PO TID PRN cap 07/17/23 Budesonide [Pulmicort] 1 mg INHALATION RT-BID ml 08/11/23 Furosemide [Lasix] 60 mg PO DAILY tab 08/11/23 Gabapentin [Neurontin] 300 mg PO HS #3 cap 08/11/23 Melatonin 10 mg PO HS PRN tab 08/11/23 Spironolactone [Aldactone] 12.5 mg PO DAILY tab 08/11/23 Allergies Allergy/AdvReac Type Severity Reaction Status Date / Time No Known Allergies Allergy Verified 08/23/23 10:52 Review of Systems ROS Statement: Those systems with pertinent positive or pertinent negative responses have been documented in the HPI. ROS Other: All systems not noted in ROS Statement are negative. Past Medical History Past Medical History: Asthma, Chest Pain / Angina, GERD/Reflux, Hyperlipidemia, Hypertension, Osteoarthritis (OA), Pneumonia, Sleep Apnea/CPAP/BIPAP Additional Past Medical History / Comment(s): uses oxygen at night 2L, gout, in wheelchair or walker due to pain in left leg, poor circulation in legs History of Any Multi-Drug Resistant Organisms: None Reported Past Surgical History: Orthopedic Surgery, Tonsillectomy Additional Past Surgical History / Comment(s): LEFT WRIST ORIF, LEFT KNEE REPLACEMENT, bilateral cataract surgery Past Anesthesia/Blood Transfusion Reactions: No Reported Reaction Additional Past Anesthesia/Blood Transfusion Reaction / Comment(s): . Past Psychological History: Depression Smoking Status: Former smoker Past Alcohol Use History: None Reported Past Drug Use History: None Reported - Past Family History Mother Family Medical History: Congestive Heart Failure (CHF), Osteoarthritis (OA) Father Additional Family Medical History / Comment(s): FROM [place] Brother(s) Family Medical History: Cancer Additional Family Medical History / Comment(s): . Sister(s) Family Medical History: Deep Vein Thrombosis (DVT) General Exam - General Exam Comments Initial Comments: GENERAL: Patient is well-developed and well-nourished. Patient is nontoxic and well- hydrated and is in mild distress. ENT: Neck is soft and supple. No significant lymphadenopathy is noted. Oropharynx is clear. Moist mucous membranes. Neck has full range of motion without eliciting any pain. EYES: The sclera were anicteric and conjunctiva were pink and moist. Extraocular movements were intact and pupils were equal round and reactive to light. Eyelids were unremarkable. PULMONARY: Patient is nontoxic at the emergency department and his breath sounds are diminished throughout CARDIOVASCULAR: There is a regular rate and rhythm without any murmurs gallops or rubs. ABDOMEN: Soft and nontender with normal bowel sounds. SKIN: Skin is clear with no lesions or rashes and otherwise unremarkable. NEUROLOGIC: Patient is alert and oriented x3. Cranial nerves II through XII are grossly intact. Motor and sensory are also intact. Normal speech, volume and content. Symmetrical smile. MUSCULOSKELETAL: Normal extremities with adequate strength and full range of motion. 2+ edema bilateral legs up to the abdomen LYMPHATICS: No significant lymphadenopathy is noted PSYCHIATRIC: Normal psychiatric evaluation. Limitations: no limitations Course Vital Signs 08/23/23 08/23/23 08/23/23 08:20 08:23 08:58 Temperature 97.7 F Pulse Rate 70 Respiratory 20 18 Rate Blood Pressure 126/80 O2 Sat by Pulse 100 Oximetry Fraction of 50 Inspired Oxygen (FIO2) 08/23/23 08/23/23 08/23/23 09:22 09:24 09:30 Temperature Pulse Rate 53 L 57 L Respiratory Rate Blood Pressure 97/66 97/66 O2 Sat by Pulse 100 97 Oximetry Fraction of 30 Inspired Oxygen (FIO2) 08/23/23 08/23/23 08/23/23 10:00 10:30 11:00 Temperature Pulse Rate 68 68 66 Respiratory Rate Blood Pressure 114/66 126/67 119/65 O2 Sat by Pulse 96 97 96 Oximetry Fraction of Inspired Oxygen (FIO2) 08/23/23 08/23/23 08/23/23 11:06 11:35 11:45 Temperature Pulse Rate 68 70 Respiratory 20 Rate Blood Pressure 114/46 O2 Sat by Pulse 98 99 Oximetry Fraction of 30 Inspired Oxygen (FIO2) 08/23/23 13:00 Temperature Pulse Rate 52 L Respiratory 22 Rate Blood Pressure 109/68 O2 Sat by Pulse 100 Oximetry Fraction of Inspired Oxygen (FIO2) Medical Decision Making - Medical Decision Making EKG is interpreted by myself. EKG shows a sinus rhythm at 66 bpm [place] interval is 210 QRS is 109 QT interval is 431 QTC is 445. Patient's EKG shows no ST segment elevation or depression Was pt. sent in by a medical professional or institution (MARIE Recio, MORTGAGE LOAN COMPUTATION CLERK, urgent care, hospital, or senior living...) When possible be specific @ -[facility] sent the patient in Did you speak to anyone other than the patient for history (EMS, parent, family, police, friend...)? What history was obtained from this source @ -EMS gave quite a bit of the history Did you review nursing and triage notes (agree or disagree)? Why? @ -[I reviewed and agree with nursing and triage notes] Were old charts reviewed (outside hosp., previous admission, EMS record, old EKG, old radiological studies, urgent care reports/EKG's, senior living records)? Report findings @ -I reviewed prior charts in prior laboratory the patient Differential Diagnosis (chest pain, altered mental status, abdominal pain women, abdominal pain men, vaginal bleeding, weakness, fever, dyspnea, syncope, headache, dizziness, GI bleed, back pain, seizure, CVA, palpatations, mental health, musculoskeletal)? @ -Differential Dyspnea: Coronary syndrome, arrhythmia, tamponade, asthma, COPD, pulmonary embolism, pneumonia, pneumothorax, pulmonary effusion, anaphylaxis, diabetic ketoacidosis, flailed chest, pulmonary contusion, diaphragmatic rupture, anemia, neuromuscular, this is not meant to be an all-inclusive list. EKG interpreted by me (3pts min.). @ -As above X-rays interpreted by me (1pt min.). @ -Chest x-ray shows pulmonary edema CT interpreted by me (1pt min.). @ -[None done] U/S interpreted by me (1pt. min.). @ -[None done] What testing was considered but not performed or refused? (CT, X-rays, U/S, labs)? Why? @ -[None] What meds were considered but not given or refused? Why? @ -[None] Did you discuss the management of the patient with other professionals (professionals i.e. MARIE Recio, MORTGAGE LOAN COMPUTATION CLERK, lab, RT, psych nurse, dialysis social worker, director of online merchandising, teacher, chief security and safety officer, telehealth case manager)? Give summary @ -I spoke with Dr. Leon he agreed to admit the patient admitted the patient I wrote admitting orders Was smoking cessation discussed for >3mins.? @ -[No] Was critical care preformed (if so, how long)? @ -35 minutes Were there social determinants of health that impacted care today? How? (Homelessness, low income, unemployed, alcoholism, drug addiction, transportation, low edu. Level, literacy, decrease access to med. care, [facility], rehab)? @ -[No] Was there de-escalation of care discussed even if they declined (Discuss DNR or withdrawal of care, Hospice)? DNR status @ -[No] What co-morbidities impacted this encounter? (DM, HTN, Smoking, COPD, CAD, Cancer, CVA, ARF, Chemo, Hep., AIDS, mental health diagnosis, sleep apnea, morbid obesity)? @ -[None] Was patient admitted / discharged? Hospital course, mention meds given and route, prescriptions, significant lab abnormalities, going to OR and other pertinent info. @ -Patient was put on BiPAP when he arrived and his oxygenation went up. X-ray was done and showed pulmonary edema. I started the patient on Lasix he was doing considerably better after I rechecked him. I spoke with Dr. Leon he agreed to admit the patient admitted the patient I wrote admitting orders. Undiagnosed new problem with uncertain prognosis? @ -[No] Drug Therapy requiring intensive monitoring for toxicity (Heparin, Nitro, Insulin, Cardizem)? @ -[No] Were any procedures done? @ -[No] Diagnosis/symptom? @ -Pulmonary edema Acute, or Chronic, or Acute on Chronic? @ -Acute Uncomplicated (without systemic symptoms) or Complicated (systemic symptoms)? @ -Complicated Side effects of treatment? @ -[No] Exacerbation, Progression, or Severe Exacerbation? @ -[No] Poses a threat to life or bodily function? How? (Chest pain, [place], [place], pneumonia, PE, COPD, DKA, ARF, appy, cholecystitis, CVA, Diverticulitis, Homicidal, Suicidal, threat to staff... and all critical care pts) @ -Yes this could lead to hypoxia and end organ dysfunction - Lab Data Result diagrams: 08/23/23 08:33 08/23/23 08:33 Lab Results 08/23/23 08/23/23 08/23/23 Range/Units 08:33 08:33 08:33 WBC 13.5 H (3.8-10.6) k/uL RBC 3.50 L (4.30-5.90) m/uL Hgb 9.3 L (13.0-17.5) gm/dL Hct 30.7 L (39.0-53.0) % MCV 87.9 (80.0-100.0) fL MCH 26.6 (25.0-35.0) pg MCHC 30.3 L (31.0-37.0) g/dL RDW 18.8 H (11.5-15.5) % Plt Count 133 L (150-450) k/uL MPV 8.6 Neutrophils % 83 % Lymphocytes % 7 % Monocytes % 7 % Eosinophils % 1 % Basophils % 0 % Neutrophils # 11.3 H (1.3-7.7) k/uL Lymphocytes # 1.0 (1.0-4.8) k/uL Monocytes # 0.9 (0-1.0) k/uL Eosinophils # 0.2 (0-0.7) k/uL Basophils # 0.0 (0-0.2) k/uL Hypochromasia Marked Anisocytosis Slight PT 11.7 (9.0-12.0) sec INR 1.1 (<1.2) APTT 30.2 H (22.0-30.0) sec Sample Site ABG pH (7.35-7.45) ABG pCO2 (35-45) mmHg ABG pO2 (83-108) mmHg ABG HCO3 (21-25) mmol/L ABG Total CO2 (19-24) mmol/L ABG O2 Saturation (94-97) % ABG Base Excess mmol/L Eros Test FiO2 % Sodium 136 L (137-145) mmol/L Potassium 5.0 (3.5-5.1) mmol/L Chloride 103 (98-107) mmol/L Carbon Dioxide 29 (22-30) mmol/L Anion Gap 4 mmol/L BUN 43 H (9-20) mg/dL Creatinine 1.17 (0.66-1.25) mg/dL Est GFR (CKD-EPI)AfAm 71 (>60 ml/min/1.73 sqM) Est GFR (CKD-EPI)NonAf 61 (>60 ml/min/1.73 sqM) Glucose 96 (74-99) mg/dL Plasma Lactic Acid Shankar (0.7-2.0) mmol/L Calcium 8.8 (8.4-10.2) mg/dL Magnesium 2.5 H (1.6-2.3) mg/dL Total Bilirubin 1.2 (0.2-1.3) mg/dL AST 36 (17-59) U/L ALT 37 (4-49) U/L Alkaline Phosphatase 168 H (38-126) U/L Troponin I (0.000-0.034) ng/mL NT-Pro-B Natriuret Pep 2030 pg/mL Total Protein 6.5 (6.3-8.2) g/dL Albumin 3.4 L (3.5-5.0) g/dL 08/23/23 08/23/23 08/23/23 Range/Units 08:33 08:33 09:11 WBC (3.8-10.6) k/uL RBC (4.30-5.90) m/uL Hgb (13.0-17.5) gm/dL Hct (39.0-53.0) % MCV (80.0-100.0) fL MCH (25.0-35.0) pg MCHC (31.0-37.0) g/dL RDW (11.5-15.5) % Plt Count (150-450) k/uL MPV Neutrophils % % Lymphocytes % % Monocytes % % Eosinophils % % Basophils % % Neutrophils # (1.3-7.7) k/uL Lymphocytes # (1.0-4.8) k/uL Monocytes # (0-1.0) k/uL Eosinophils # (0-0.7) k/uL Basophils # (0-0.2) k/uL Hypochromasia Anisocytosis PT (9.0-12.0) sec INR (<1.2) APTT (22.0-30.0) sec Sample Site lbrac ABG pH 7.37 (7.35-7.45) ABG pCO2 52 H (35-45) mmHg ABG pO2 181 H (83-108) mmHg ABG HCO3 30 H (21-25) mmol/L ABG Total CO2 31 H (19-24) mmol/L ABG O2 Saturation 99.3 H (94-97) % ABG Base Excess 4.4 mmol/L Eros Test Yes FiO2 50 % Sodium (137-145) mmol/L Potassium (3.5-5.1) mmol/L Chloride (98-107) mmol/L Carbon Dioxide (22-30) mmol/L Anion Gap mmol/L BUN (9-20) mg/dL Creatinine (0.66-1.25) mg/dL Est GFR (CKD-EPI)AfAm (>60 ml/min/1.73 sqM) Est GFR (CKD-EPI)NonAf (>60 ml/min/1.73 sqM) Glucose (74-99) mg/dL Plasma Lactic Acid Shankar 0.7 (0.7-2.0) mmol/L Calcium (8.4-10.2) mg/dL Magnesium (1.6-2.3) mg/dL Total Bilirubin (0.2-1.3) mg/dL AST (17-59) U/L ALT (4-49) U/L Alkaline Phosphatase (38-126) U/L Troponin I <0.012 (0.000-0.034) ng/mL NT-Pro-B Natriuret Pep pg/mL Total Protein (6.3-8.2) g/dL Albumin (3.5-5.0) g/dL Critical Care Time Critical Care Time: Yes Total Critical Care Time: 35 Disposition Clinical Impression: Acute pulmonary edema Disposition: ADMITTED IP TO THIS HOSP Referrals: Alison Leon MD [Primary Care Provider] - 1-2 days Time of Disposition: 13:43
[2023-08-23 08:57] LABS: Anisocytosis Slight; Basophils % (A) 0 %; Eosinophils # (A) 0.2 k/uL (0-0.7); Eosinophils % (A) 1 %; HCT 30.7 % (39.0-53.0); HGB 9.3 gm/dL (13.0-17.5); Hypochromasia Marked; Lymphocytes % (A) 7 %; MCH 26.6 pg (25.0-35.0); MCHC 30.3 g/dL (31.0-37.0); MCV 87.9 fL (80.0-100.0); Mean Platelet Volume 8.6; Monocytes # (A) 0.9 k/uL (0-1.0); Monocytes % (A) 7 %; Neutrophils # (A) 11.3 k/uL (1.3-7.7); Neutrophils % (A) 83 %; Platelet Count 133 k/uL (150-450); RDW 18.8 % (11.5-15.5); WBC 13.5 k/uL (3.8-10.6)
--- NOTE | 2023-08-23 09:05 | XR ---
EXAMINATION TYPE: XR chest 1V DATE OF EXAM: 08/23/2023 COMPARISON: Chest x-ray August 07, 2023 and older studies. HISTORY: Difficulty breathing. TECHNIQUE: Single frontal view of the chest is obtained. FINDINGS: Exam suboptimal due to portable technique and patient's large body habitus. Persistent card iomegaly with increased interstitial markings bilaterally. No pneumothorax is evident. The osseous structures are intact. IMPRESSION: Findings suggest CHF exacerbation on background chronic parenchymal changes. Correlate c rufino.
[2023-08-23 09:15] LABS: ABG Base Excess 4.4 mmol/L; ABG HCO3 30 mmol/L (21-25); ABG Oxygen Saturation 99.3 % (94-97); ABG PCO2 52 mmHg (35-45); ABG PH 7.37 (7.35-7.45); ABG PO2 181 mmHg (83-108); ABG TCO2 31 mmol/L (19-24); Allen Test Performed? Yes
[2023-08-23 10:28] LABS: ALT 37 U/L (4-49); AST 36 U/L (17-59); African American GFR (CKD) 71 (>60 ml/min/1.73 sqM); Albumin 3.4 g/dL (3.5-5.0); Alkaline Phosphatase 168 U/L (38-126); Anion Gap 4 mmol/L; Blood Urea Nitrogen 43 mg/dL (9-20); Calcium 8.8 mg/dL (8.4-10.2); Carbon Dioxide 29 mmol/L (22-30); Chloride 103 mmol/L (98-107); Glucose 96 mg/dL (74-99); Magnesium 2.5 mg/dL (1.6-2.3); Non-African American GFR(CKD) 61 (>60 ml/min/1.73 sqM); Sodium 136 mmol/L (137-145); Total Bilirubin 1.2 mg/dL (0.2-1.3); Total Protein 6.5 g/dL (6.3-8.2)
[2023-08-23 10:36] LABS: NT-Pro-B-Type Natriuretic Pept 2030 pg/mL
--- NOTE | 2023-08-23 15:43 | P.HPIM ---
History of Present Illness H&P Date: 08/23/23 Chief Complaint: Acute hypoxemic respiratory failure due to acute diastolic heart failure HISTORY OF PRESENT ILLNESS: This is a 73-year-old male with a previous medical history significant for hypertension and hypertensive cardiovascular disease, hyperlipidemia, o besity with obstructive sleep apnea and obesity hypoventilation syndrome, chronic diastolic heart failure, asthma, hypothyroidism, anxiety and depressive disorder, peripheral neuropathy, patient was recently discharged from [facility] after he was admitted to the hospital for acute diastolic heart failure and pulmonary edema, and he was discharged back to [facility] on the , patient was doing fine and he was seen on Friday he was doing fine suddenly developed to have a significant weeping from both lower extremities despite taken spironolactone as well as Lasix and Farxiga, patient has been on oxygen at 4 L Cannula, patient weight has been increased, with increased weeping from both lower extremities, the nursing staff came to see the patient in the morning and he was unresponsive with oxygen saturation in the low 80s, 911 was called and the patient was. On the high flow oxygen he went up to 88%, patient was transported to the emergency department at [facility], had a chest x- ray that showed bulbar edema, he was placed on a BiPAP, with Lasix 40 mg IV push, he felt much better he is sitting down in bed, he continues to be somewhat short of breath, he continues to have significant swelling in both lower extremities with minimal denuded blister in the left lower extremity, he does appear to have a chronic stasis edema, patient appears to be more awake and al ert at the time of evaluation in the ER. Patient will be admitted to the hospital for acute diastolic heart failure with The BiPAP, Would Be Started on Lasix 80 Mg IV Push Every 12 Hours. REVIEW OF SYSTEMS: Constitutional: No documented fever, no chills, no night sweats. No weight change. No weakness, fatigue or lethargy. No daytime sleepiness. HEENT: No headache. No blurred vision or double vision, no loss of vision. No loss of Hearing, no ringing in the ears, no dizziness. No nasal drainage or congestion. No epistaxis. No sore throat. Lungs: positive for shortness of breath, occasional cough, minimal sputum production. No wheezing. Reports dyspnea with activity. Cardiovascular: positive for chest pain, positive for lower extremity edema. No palpitations. No paroxysmal nocturnal dyspnea. No orthopnea. No lightheadedness or dizziness. No syncopal episodes. Abdominal: Reports abdominal pain. No nausea, vomiting. No diarrhea. No constipation. No bloody or tarry stools reports loss of appetite. Genitourinary: No dysuria, increased frequency, urgency. No urinary retention. Musculoskeletal: No myalgias. positive for muscle weakness, positive for gait dysfunction, positive for frequent falls. positive for back pain. No neck pain, bilateral hip pain Integumentary: No wounds, no lesions. No rash or pruritus. No unusual bruising. No change in hair or nails. Neurologic: No aphasia. No facial droop. No change in mentation. No head injury. No headache. No paralysis. No paresthesia. Psychiatric: No depression. No anxiety. No mood swings. Endocrine: No abnormal blood sugars. No weight change. PAST MEDICAL HISTORY: Hypertension and hypertensive cardiovascular disease. Hyperlipidemia. Hypothyroidism. Obesity with obstructive sleep apnea and obesity hypoventilation syndrome Moderate persistent asthma. Enlarged prostate. Anxiety. Chronic diastolic heart failure. PAST SURGICAL HISTORY: Left knee replacement Circumcision Colonoscopy SOCIAL HISTORY: She used to smoke about pack every day he smoked for many years and quit about 15 years ago, he denies any alcohol ingestion, no drug use or abuse. FAMILY HISTORY: Father at age of 61 from [place] mother at age of 70 and she had osteoarthritis patient had 3 brothers one from lung cancer one with CAD and 1 Parkinson disease and patient had 5 sisters all have passed PHYSICAL EXAMINATION: General: 72-year-old male lying down in bed in moderate respiratory d istress HEENT: Head is atraumatic, normocephalic, pupils were equal round reactive to light and recommendation, extraocular muscle movement were intact, sclera nonicteric, conjunctivae were pale, mucous membranes of the mouth are somewhat dry. Neck: Supple, no JVP, normal carotid upstroke bilaterally, no lymphadenopathy. Chest: Decreased breath sounds at the bases, few rhonchi, no expiratory wheezes, no chest wall tenderness, no intercostal retractions. Heart: First heart sound is normal, second heart sound is normal, there is systolic ejection murmur 2/6 located in the left sternal border. Abdomen: Soft, nontender, nondistended, positive bowel sounds, obese. Extremities: There is +2 edema no calf tenderness DP +2 bilaterally, there is bilateral scabbed lesions in both shins free Neurologic examination: Patient is awake alert and oriented X 3, cranial nerves II-12 appear grossly intact, muscle power were 5 out of 5 in upper extremities and 3/5 in bilateral lower extremities ASSESSMENT AND PLAN: 1. Acute hypoxemic respiratory failure due to acute on chronic diastolic heart failure and COPD wit RAMYA and OHS . patient was started on Lasix 80 mg IV push every12 hours, monitor input and output and daily weight, continue spironolactone 25 mg orally once every day, continue patient on Farxiga 10 mg orally once every day, metoprolol 37.5 mg orally twice every day, cardiology consultation. 2. COPD/moderate persistent asthma and not in exacerbation with chronic hypoxemic respiratory failure continue oxygen support continue DuoNeb 3 mg nebulization 4 times every day. 3. Paroxysmal atrial fibrillation/ Flutter. Continue patient on metoprolol 37.5 mg orally twice every day, on Xarelto 15 mg orally once every day 4. Hypertension and hypertensive cardiovascular disease. Continue patient on metoprolol 25 mg orally twice every day, monitor the patient blood pressure very closely. 5. Hyperlipidemia. Continue patient on atorvastatin 20 mg orally once every day, monitor lipid panel, keep LDL 55-70. 6. Enlarged prostate. Continue patient on tamsulosin 0.4 mg orally once every day. 7. Anxiety disorder. Continue patient on sertraline 100 mg orally once every d ay. 8. Neuropathy. Continue patient on gabapentin 300 mg at bedtime. 9. DVT prophylaxis. Continue Xarelto 15 mg po daily 10. GI prophylaxis. Continue patient on Protonix 40 mg orally once every day. 11. Admit to inpatient. Estimate a length of stay 2 midnights. 13. family welfare social work professor consult. 14. PT evaluation Past Medical History Past Medical History: Asthma, Chest Pain / Angina, GERD/Reflux, Hyperlipidemia, Hypertension, Osteoarthritis (OA), Pneumonia, Sleep Apnea/CPAP/BIPAP Additional Past Medical History / Comment(s): uses oxygen at night 2L, gout, in wheelchair or walker due to pain in left leg, poor circulation in legs History of Any Multi-Drug Resistant Organisms: None Reported Past Surgical History: Orthopedic Surgery, Tonsillectomy Additional Past Surgical History / Comment(s): LEFT WRIST ORIF, LEFT KNEE REPLACEMENT, bilateral cataract surgery Past Anesthesia/Blood Transfusion Reactions: No Reported Reaction Additional Past Anesthesia/Blood Transfusion Reaction / Comment(s): . Past Psychological History: Depression Smoking Status: Former smoker Past Alcohol Use History: None Reported Past Drug Use History: None Reported - Past Family History Mother Family Medical History: Congestive Heart Failure (CHF), Osteoarthritis (OA) Father Additional Family Medical History / Comment(s): FROM [place] Brother(s) Family Medical History: Cancer Additional Family Medical History / Comment(s): . Sister(s) Family Medical History: Deep Vein Thrombosis (DVT) Medications and Allergies Home Medications Medication Instructions Recorded Confirmed Type Sertraline [Zoloft] 100 mg PO HS 04/04/17 08/23/23 History Atorvastatin [Lipitor] 20 mg PO HS 07/14/19 08/23/23 History Tamsulosin [Flomax] 0.4 mg PO DAILY 07/14/19 08/23/23 History Ipratropium-Albuterol Nebulize 3 ml INHALATION RT-Q6H 08/19/19 08/23/23 History [Duoneb 0.5 mg-3 mg/3 ml Soln] Acetaminophen Tab [Tylenol] 500 mg PO Q6H PRN 03/26/23 08/23/23 History Cholecalciferol [Vitamin D3 (25 50 mcg PO DAILY 03/26/23 08/23/23 History Mcg = 1000 Iu)] Baclofen [Lioresal] 10 mg PO BID PRN tab 03/31/23 08/23/23 Rx Rivaroxaban [Xarelto] 15 mg PO W/SUPPER #30 tab 06/25/23 08/23/23 Rx Benzonatate [Tessalon Perles] 200 mg PO TID PRN cap 07/17/23 08/23/23 Rx Dapagliflozin Propanediol [Farxiga] 5 mg PO DAILY 08/07/23 08/23/23 History Magnesium Oxide [Mag-Ox] 400 mg PO DAILY 08/07/23 08/23/23 History Montelukast [Singulair] 10 mg PO HS 08/07/23 08/23/23 History Omeprazole [PriLOSEC] 20 mg PO DAILY 08/07/23 08/23/23 History Tirzepatide [Mounjaro] 2.5 mg SQ MO 08/07/23 08/23/23 History Budesonide [Pulmicort] 1 mg INHALATION RT-BID ml 08/11/23 08/23/23 Rx Furosemide [Lasix] 60 mg PO DAILY tab 08/11/23 08/23/23 Rx Gabapentin [Neurontin] 300 mg PO HS #3 cap 08/11/23 08/23/23 Rx Melatonin 10 mg PO HS PRN tab 08/11/23 08/23/23 Rx Spironolactone [Aldactone] 12.5 mg PO DAILY tab 08/11/23 08/23/23 Rx Ammonium Lactate Lotion 1 applic TOPICAL DAILY 08/23/23 08/23/23 History [Lac-Hydrin 12% Lotion] Metoprolol Tartrate [Lopressor] 37.5 mg PO BID 08/23/23 08/23/23 History allopurinoL 200 mg PO DAILY 08/23/23 08/23/23 History predniSONE [Deltasone] See Taper PO DAILY 08/23/23 08/23/23 History Allergies Allergy/AdvReac Type Severity Reaction Status Date / Time No Known Allergies Allergy Verified 08/23/23 10:52 Physical Exam Vitals: Vital Signs Temp Pulse Resp BP Pulse Ox FiO2 08/23/23 15:23 59 L 16 97 08/23/23 15:07 30 08/23/23 15:00 102/90 08/23/23 14:58 67 20 100 08/23/23 13:00 52 L 22 109/68 100 08/23/23 11:45 30 08/23/23 11:35 70 20 114/46 99 08/23/23 11:06 68 98 08/23/23 11:00 66 119/65 96 08/23/23 10:30 68 126/67 97 08/23/23 10:00 68 114/66 96 08/23/23 09:30 57 L 97/66 97 08/23/23 09:24 53 L 97/66 100 08/23/23 09:22 30 08/23/23 08:58 18 08/23/23 08:23 97.7 F 70 20 126/80 100 08/23/23 08:20 50 Intake and Output 08/23/23 08/23/23 08/23/23 06:59 14:59 22:59 Output Total 975 800 Balance -975 -800 Output: Urine 975 800 Uretheral (Lynn) 800 Other: Weight 122.47 kg Results CBC & Chem 7: 08/23/23 08:33 08/23/23 08:33 Labs: Abnormal Lab Results - Last 24 Hours (Table) 08/23/23 08/23/23 08/23/23 Range/Units 08:33 08:33 08:33 WBC 13.5 H (3.8-10.6) k/uL RBC 3.50 L (4.30-5.90) m/uL Hgb 9.3 L (13.0-17.5) gm/dL Hct 30.7 L (39.0-53.0) % MCHC 30.3 L (31.0-37.0) g/dL RDW 18.8 H (11.5-15.5) % Plt Count 133 L (150-450) k/uL Neutrophils # 11.3 H (1.3-7.7) k/uL APTT 30.2 H (22.0-30.0) sec ABG pCO2 (35-45) mmHg ABG pO2 (83-108) mmHg ABG HCO3 (21-25) mmol/L ABG Total CO2 (19-24) mmol/L ABG O2 Saturation (94-97) % Sodium 136 L (137-145) mmol/L BUN 43 H (9-20) mg/dL Magnesium 2.5 H (1.6-2.3) mg/dL Alkaline Phosphatase 168 H (38-126) U/L Albumin 3.4 L (3.5-5.0) g/dL 08/23/23 Range/Units 09:11 WBC (3.8-10.6) k/uL RBC (4.30-5.90) m/uL Hgb (13.0-17.5) gm/dL Hct (39.0-53.0) % MCHC (31.0-37.0) g/dL RDW (11.5-15.5) % Plt Count (150-450) k/uL Neutrophils # (1.3-7.7) k/uL APTT (22.0-30.0) sec ABG pCO2 52 H (35-45) mmHg ABG pO2 181 H (83-108) mmHg ABG HCO3 30 H (21-25) mmol/L ABG Total CO2 31 H (19-24) mmol/L ABG O2 Saturation 99.3 H (94-97) % Sodium (137-145) mmol/L BUN (9-20) mg/dL Magnesium (1.6-2.3) mg/dL Alkaline Phosphatase (38-126) U/L Albumin (3.5-5.0) g/dL
[2023-08-23] MEDS ORDERED: FUROSEMIDE 10 MG/ML 4 ML VIAL IV SCH (16:00)
[2023-08-23] MEDS: RIVAROXABAN 15 MG TAB PO SCH (18:01)
[2023-08-23] MEDS: FUROSEMIDE 10 MG/ML 10 ML VIAL IV SCH (18:02)
[2023-08-23] MEDS: NITROGLYCERIN OINT 1 INCH/GM PACKET TOPICAL SCH (18:02)
[2023-08-23] MEDS: BUDESONIDE 1 MG/2 ML NEBU INHALATION SCH (19:27)
[2023-08-23] MEDS ORDERED: IPRATROPIUM-ALBUTEROL 3 ML NEB INHALATION PRN (19:32)
[2023-08-23] MEDS: IPRATROPIUM-ALBUTEROL 3 ML NEB INHALATION SCH (19:43)
[2023-08-23] MEDS: GABAPENTIN 300 MG CAP PO SCH (19:58)
[2023-08-23] MEDS: MONTELUKAST 10 MG TAB PO SCH (19:58)
[2023-08-23] MEDS: METOPROLOL TARTRATE 12.5 MG TAB PO SCH (19:58)
[2023-08-23] MEDS: ATORVASTATIN 20 MG TAB PO SCH (19:58)
[2023-08-23] MEDS: SERTRALINE 100 MG TAB PO SCH (19:59)
[2023-08-23] MEDS ORDERED: IPRATROPIUM-ALBUTEROL 3 ML NEB INHALATION SCH (20:00)
[2023-08-23] MEDS: BACLOFEN 10 MG TAB PO PRN (22:34)
[2023-08-23] MEDS: ACETAMINOPHEN TAB 500 MG TAB PO PRN (22:34)
[2023-08-24] MEDS: NITROGLYCERIN OINT 1 INCH/GM PACKET TOPICAL SCH ×4 (01:20→17:35)
[2023-08-24] MEDS: FUROSEMIDE 10 MG/ML 10 ML VIAL IV SCH ×2 (06:17→17:35)
[2023-08-24] MEDS: PANTOPRAZOLE 40 MG TABLET PO SCH (06:23)
[2023-08-24 08:25] LABS: ALT 31 U/L (4-49); AST 32 U/L (17-59); African American GFR (CKD) 66 (>60 ml/min/1.73 sqM); Albumin 3.1 g/dL (3.5-5.0); Alkaline Phosphatase 136 U/L (38-126); Anion Gap 5 mmol/L; Blood Urea Nitrogen 46 mg/dL (9-20); Calcium 8.5 mg/dL (8.4-10.2); Carbon Dioxide 31 mmol/L (22-30); Chloride 103 mmol/L (98-107); Glucose 88 mg/dL (74-99); Magnesium 2.2 mg/dL (1.6-2.3); Non-African American GFR(CKD) 57 (>60 ml/min/1.73 sqM); Potassium 4.7 mmol/L (3.5-5.1); Sodium 139 mmol/L (137-145); Total Bilirubin 1.2 mg/dL (0.2-1.3)
[2023-08-24 08:50] LABS: Anisocytosis Slight; Basophils % (A) 0 %; Eosinophils # (A) 0.1 k/uL (0-0.7); Eosinophils % (A) 1 %; HCT 28.5 % (39.0-53.0); HGB 8.7 gm/dL (13.0-17.5); Hypochromasia Marked; Lymphocytes % (A) 9 %; MCH 27.2 pg (25.0-35.0); MCHC 30.4 g/dL (31.0-37.0); MCV 89.2 fL (80.0-100.0); Mean Platelet Volume 7.4; Monocytes # (A) 0.9 k/uL (0-1.0); Monocytes % (A) 8 %; Neutrophils # (A) 9.3 k/uL (1.3-7.7); Neutrophils % (A) 81 %; RDW 18.8 % (11.5-15.5); WBC 11.5 k/uL (3.8-10.6)
[2023-08-24] MEDS: BUDESONIDE 1 MG/2 ML NEBU INHALATION SCH ×2 (09:01→20:35)
[2023-08-24] MEDS: IPRATROPIUM-ALBUTEROL 3 ML NEB INHALATION SCH ×4 (09:01→20:35)
[2023-08-24] MEDS: CHOLECALCIFEROL 25 MCG (1000 IU) TABLET PO SCH (09:18)
[2023-08-24] MEDS: allopurinoL 100 MG TAB PO SCH (09:18)
[2023-08-24] MEDS: DAPAGLIFLOZIN PROPANEDIOL 10 MG TABLET PO SCH (09:18)
[2023-08-24] MEDS: METOPROLOL TARTRATE 12.5 MG TAB PO SCH ×2 (09:18→21:17)
[2023-08-24] MEDS: TAMSULOSIN 0.4 MG CAP.ER.24H PO SCH (09:19)
[2023-08-24] MEDS: SPIRONOLACTONE 25 MG TAB PO SCH (09:19)
[2023-08-24] MEDS: MAGNESIUM OXIDE 400 MG TAB PO SCH (09:19)
[2023-08-24 09:47] LABS: Platelet Count 96 k/uL (150-450)
--- NOTE | 2023-08-24 13:05 | P.PN ---
Subjective Progress Note Date: 08/24/23 HISTORY OF PRESENT ILLNESS: This is a 73-year-old male with a previous medical history significant for hypertension and hypertensive cardiovascular disease, hyperlipidemia, obesity with obstructive sleep apnea and obesity hypoventilation syndrome, chronic diastolic heart failure, asthma, hypothyroidism, anxiety and depressive disorder, peripheral neuropathy, patient was recently discharged from [facility] after he was admitted to the hospital for acute diastolic heart failure and pulmonary edema, and he was discharged back to [facility] on the , patient was doing fine and he was seen on Friday he was doing fine suddenly developed to have a significant weeping from both lower extremities despite taken spironolactone as well as Lasix and Farxiga, patient has been on oxygen at 4 L Cannula, patient weight has been increased, with increased weeping from both lower extremities, the nursing staff came to see the patient in the morning and he was unresponsive with oxygen saturation in the low 80s, 911 was called and the patient was. On the high flow oxygen he went up to 88%, patient was transported to the emergency department at [facility], had a chest x- ray that showed bulbar edema, he was placed on a BiPAP, with Lasix 40 mg IV push, he felt much better he is sitting down in bed, he continues to be somewhat short of breath, he continues to have significant swelling in both lower extremities with minimal denuded blister in the left lower extremity, he does appear to have a chronic stasis edema, patient appears to be more awake and alert at the time of evaluation in the ER. Patient will be admitted to the hospital for acute diastolic heart failure with The BiPAP, Would Be Started on Lasix 80 Mg IV Push Every 12 Hours. 07/24: Patient is feeling better today, he continues to be on 4 L nasal cannula, he denies any chest pain, isosorbide, uses the BiPAP on and off, he is diuresing with Lasix 80 mg IV push every 12 hours, he is continued for sick at 10 mg every day, spironolactone 25 mg once every day, monitor the patient input and output and daily weight, follow the patient very closely. Cardiology is to see the patient as he is complaining of chest pin suggestive of CAD REVIEW OF SYSTEMS: Constitutional: No documented fever, no chills, no night sweats. No weight change. No weakness, fatigue or lethargy. No daytime sleepiness. HEENT: No headache. No blurred vision or double vision, no loss of vision. No loss of Hearing, no ringing in the ears, no dizziness. No nasal drainage or congestion. No epistaxis. No sore throat. Lungs: positive for shortness of breath, occasional cough, minimal sputum production. No wheezing. Reports dyspnea with activity. Cardiovascular: positive for chest pain, positive for lower extremity edema. No palpitations. No paroxysmal nocturnal dyspnea. No orthopnea. No lightheadedness or dizziness. No syncopal episodes. Abdominal: Reports abdominal pain. No nausea, vomiting. No diarrhea. No constipation. No bloody or tarry stools reports loss of appetite. Genitourinary: No dysuria, increased frequency, urgency. No urinary retention. Musculoskeletal: No myalgias. positive for muscle weakness, positive for gait dysfunction, positive for frequent falls. positive for back pain. No neck pain, bilateral hip pain Integumentary: No wounds, no lesions. No rash or pruritus. No unusual bruising. No change in hair or nails. Neurologic: No aphasia. No facial droop. No change in mentation. No head injury. No headache. No paralysis. No paresthesia. Psychiatric: No depression. No anxiety. No mood swings. Endocrine: No abnormal blood sugars. No weight change. PHYSICAL EXAMINATION: General: 72-year-old male lying down in bed in moderate respiratory distress HEENT: Head is atraumatic, normocephalic, pupils were equal round reactive to light and recommendation, extraocular muscle movement were intact, sclera nonicteric, conjunctivae were pale, mucous membranes of the mouth are somewhat dry. Neck: Supple, no JVP, normal carotid upstroke bilaterally, no lymphadenopathy. Chest: Decreased breath sounds at the bases, few rhonchi, no expiratory wheezes, no chest wall tenderness, no intercostal retractions. Heart: First heart sound is normal, second heart sound is normal, there is systolic ejection murmur 2/6 located in the left sternal border. Abdomen: Soft, nontender, nondistended, positive bowel sounds, obese. Extremities: There is +2 edema no calf tenderness DP +2 bilaterally, there is bilateral scabbed lesions in both shins free Neurologic examination: Patient is awake alert and oriented X 3, cranial nerves II-12 appear grossly intact, muscle power were 5 out of 5 in upper extremities and 3/5 in bilateral lower extremities ASSESSMENT AND PLAN: 1. Acute hypoxemic respiratory failure due to acute on chronic diastolic heart failure and COPD wit RAMYA and OHS . patient is on Lasix 80 mg IV push every12 hours, monitor input and output and daily weight, continue spironolactone 25 mg orally once every day, continue patient on Farxiga 10 mg orally once every day, metoprolol 37.5 mg orally twice every day, cardiology consultation. 2. COPD/moderate persistent asthma and not in exacerbation with chronic hypoxemic respiratory failure continue oxygen support continue DuoNeb 3 mg nebulization 4 times every day. 3. Paroxysmal atrial fibrillation/ Flutter. Continue patient on metoprolol 37.5 mg orally twice every day, on Xarelto 15 mg orally once every day 4. Hypertension and hypertensive cardiovascular disease. Continue patient on metoprolol 25 mg orally twice every day, monitor the patient blood pressure very closely. 5. Hyperlipidemia. Continue patient on atorvastatin 20 mg orally once every day, monitor lipid panel, keep LDL 55-70. 6. Enlarged prostate. Continue patient on tamsulosin 0.4 mg orally once every day. 7. Anxiety disorder. Continue patient on sertraline 100 mg orally once every day. 8. Neuropathy. Continue patient on gabapentin 300 mg at bedtime. 9. Chest pain possible CAD. cardiology evaluation. 10 Depression. we will continue with Sertraline 100 mg po daily 11. DVT prophylaxis. Continue Xarelto 15 mg po daily 12. GI prophylaxis. Continue patient on Protonix 40 mg orally once every day. 13. PT evaluation. 14. elevator worker consult. 15. DNR Objective - Vital Signs Vital signs: Vital Signs Temp 98.6 F 08/24/23 09:15 Pulse 82 08/24/23 09:15 Resp 23 08/24/23 09:15 BP 111/71 08/24/23 09:15 Pulse Ox 97 08/24/23 09:15 FiO2 30 08/24/23 09:15 Intake & Output 08/23/23 08/24/23 08/24/23 18:59 06:59 18:59 Intake Total 10 780 10 Output Total 5695 8555 Balance -0296 -6109 10 Weight 122.47 kg 73.5 kg Intake: IV 10 10 Invasive Line 1 10 10 Oral 780 Output: Urine 2475 2125 Uretheral (Lynn) 1500 Other: Voiding Method Indwelling Catheter Indwelling Catheter - Labs CBC & Chem 7: 08/24/23 07:22 08/24/23 07:22 Labs: Abnormal Lab Results - Last 24 Hours (Table) 08/24/23 08/24/23 Range/Units 07:22 07:22 WBC 11.5 H (3.8-10.6) k/uL RBC 3.20 L (4.30-5.90) m/uL Hgb 8.7 L (13.0-17.5) gm/dL Hct 28.5 L (39.0-53.0) % MCHC 30.4 L (31.0-37.0) g/dL RDW 18.8 H (11.5-15.5) % Plt Count 96 L (150-450) k/uL Neutrophils # 9.3 H (1.3-7.7) k/uL Carbon Dioxide 31 H (22-30) mmol/L BUN 46 H (9-20) mg/dL Alkaline Phosphatase 136 H (38-126) U/L Total Protein 6.0 L (6.3-8.2) g/dL Albumin 3.1 L (3.5-5.0) g/dL
[2023-08-24] MEDS: BENZONATATE 100 MG CAP PO PRN (13:12)
[2023-08-24] MEDS: ACETAMINOPHEN TAB 500 MG TAB PO PRN (13:12)
--- NOTE | 2023-08-24 13:42 | CONS ---
CONSULTATION CHIEF COMPLAINT: Shortness of breath. HISTORY OF PRESENT ILLNESS: Devyn is a 73-year-old gentleman with complex and multiple medical problems including severe COPD, hypertension, congestive heart failure, and paroxysmal atrial fibrillation, who is admitted to hospital with symptoms of weeping from both lower extremities and leg edema. He was recently admitted to hospital with acute diastolic heart failure and was going through rehab at the [facility]. The patient apparently was unresponsive in the [facility] and had low O2 saturations. 911 was called and the patient was transferred to the [facility], where he is admitted to hospital. A chest x-ray revealed acute pulmonary edema and the patient was treated with IV Lasix. At the time of my evaluation, he appears short of breath and denies any chest pain. He is receiving 80 mg of IV Lasix b.i.d. and I will add Zaroxolyn. EKG shows sinus rhythm with nonspecific ST-T wave changes. Recent echocardiogram on him showed normal LV systolic function without significant valvular heart disease. The patient's clinical presentation seems to be due to a combination of acute exacerbation of chronic diastolic heart failure with pulmonary edema and COPD exacerbation. PAST MEDICAL HISTORY: Significant for COPD, paroxysmal atrial fibrillation, congestive heart failure, hypertension. CURRENT MEDICATIONS: Include, 1. Flomax. 2. Zoloft 100 mg daily. 3. Xarelto 15 mg daily. 4. Singulair. 5. Pulmicort. 6. Tylenol. 7. Mounjaro. 8. Lopressor. 9. Magnesium. 10.Neurontin. 11.Lasix. 12.Lipitor. 13.Spironolactone. ALLERGIES: No known drug allergies. FAMILY HISTORY: Negative for premature coronary artery disease. SOCIAL HISTORY: Negative for current smoking, EtOH abuse, or drug abuse. REVIEW OF SYSTEMS: review of systems has been performed. Pertinents are as documented. PHYSICAL EXAMINATION: VITAL SIGNS: The patient is afebrile. Heart rate is 65 beats per minute, blood pressure is 93/58, respiratory rate is 18, O2 saturation is 98% on 3 L. NECK: There is no jugular venous distention. CHEST: Reveals bilateral occasional crackles and rhonchi. HEART: Reveals first and second heart sounds. No gallop. No murmur. ABDOMEN: Soft. EXTREMITIES: Reveals bilateral moderate pitting edema with erythema and weeping. Foot pulses are intact. LABORATORY DATA: Show that the hemoglobin is 8.7, platelet count is 96. Potassium is 4.7, creatinine is 1.2, BUN is 46. Coronavirus test is negative. ASSESSMENT: 1. Acute exacerbation of chronic diastolic heart failure with acute pulmonary edema. 2. Paroxysmal atrial fibrillation. 3. Morbid obesity. 4. Chronic obstructive pulmonary disease exacerbation. PLAN: I will continue the patient on IV Lasix and give Zaroxolyn, and once leg edema improves and shortness of breath improves, we can cut back on the diuretic. We will follow electrolytes regularly to make sure that he does not reveal a prerenal azotemia. MMODL / IJN: [id number] /
[2023-08-24] MEDS: RIVAROXABAN 15 MG TAB PO SCH (17:35)
[2023-08-24] MEDS: metOLazone 5 MG TAB PO SCH (17:36)
[2023-08-24] MEDS: SERTRALINE 100 MG TAB PO SCH (21:17)
[2023-08-24] MEDS: MONTELUKAST 10 MG TAB PO SCH (21:17)
[2023-08-24] MEDS: ATORVASTATIN 20 MG TAB PO SCH (21:17)
[2023-08-24] MEDS: GABAPENTIN 300 MG CAP PO SCH (21:17)
[2023-08-24] MEDS: MELATONIN 5 MG TABLET PO PRN (21:17)
[2023-08-25] MEDS: FUROSEMIDE 10 MG/ML 10 ML VIAL IV SCH ×2 (05:34→09:40)
[2023-08-25] MEDS: PANTOPRAZOLE 40 MG TABLET PO SCH (05:34)
[2023-08-25] MEDS: IPRATROPIUM-ALBUTEROL 3 ML NEB INHALATION SCH ×4 (08:23→23:02)
[2023-08-25] MEDS: BUDESONIDE 1 MG/2 ML NEBU INHALATION SCH ×2 (08:23→23:02)
[2023-08-25 08:58] LABS: Anisocytosis Slight; Basophils % (A) 0 %; Eosinophils # (A) 0.1 k/uL (0-0.7); Eosinophils % (A) 1 %; HCT 27.5 % (39.0-53.0); HGB 8.4 gm/dL (13.0-17.5); Hypochromasia Marked; Lymphocytes # (A) 1.2 k/uL (1.0-4.8); Lymphocytes % (A) 12 %; MCH 27.2 pg (25.0-35.0); MCHC 30.6 g/dL (31.0-37.0); Mean Platelet Volume 7.7; Monocytes % (A) 10 %; Neutrophils # (A) 7.6 k/uL (1.3-7.7); Neutrophils % (A) 76 %; Platelet Count 103 k/uL (150-450); RBC 3.09 m/uL (4.30-5.90); RDW 18.8 % (11.5-15.5); WBC 10.1 k/uL (3.8-10.6)
[2023-08-25 09:15] LABS: ALT 28 U/L (4-49); AST 27 U/L (17-59); African American GFR (CKD) 53 (>60 ml/min/1.73 sqM); Albumin 3.1 g/dL (3.5-5.0); Alkaline Phosphatase 164 U/L (38-126); Anion Gap 6 mmol/L; Blood Urea Nitrogen 49 mg/dL (9-20); Calcium 8.6 mg/dL (8.4-10.2); Carbon Dioxide 31 mmol/L (22-30); Chloride 101 mmol/L (98-107); Glucose 83 mg/dL (74-99); Non-African American GFR(CKD) 45 (>60 ml/min/1.73 sqM); Potassium 3.9 mmol/L (3.5-5.1); Sodium 138 mmol/L (137-145); Total Bilirubin 1.4 mg/dL (0.2-1.3)
[2023-08-25] MEDS: SPIRONOLACTONE 25 MG TAB PO SCH (09:39)
[2023-08-25] MEDS: METOPROLOL TARTRATE 12.5 MG TAB PO SCH ×2 (09:39→21:03)
[2023-08-25] MEDS: CHOLECALCIFEROL 25 MCG (1000 IU) TABLET PO SCH (09:40)
[2023-08-25] MEDS: DAPAGLIFLOZIN PROPANEDIOL 10 MG TABLET PO SCH (09:40)
[2023-08-25] MEDS: TAMSULOSIN 0.4 MG CAP.ER.24H PO SCH (09:40)
[2023-08-25] MEDS: allopurinoL 100 MG TAB PO SCH (09:40)
[2023-08-25] MEDS: metOLazone 5 MG TAB PO SCH (09:40)
[2023-08-25] MEDS: MAGNESIUM OXIDE 400 MG TAB PO SCH (09:40)
--- NOTE | 2023-08-25 11:42 | CA ---
Transthoracic Echo Report Name: Devyn Rodriguez Age: 73 Gender: M : 1950 Exam Date: 08/25/2023 10:31 Exam Location: [facility] Ht (in): 66 Wt (lb): 276 Ordering Physician: Concepción Perkins Attending/Referring Phys: [id number], Maddie Air Quality Instrument Specialist Jacky Velez Procedure CPT: Indications: LVF Cardiac Hx: Technical Quality: Technically difficult study Contrast 1: Lumason Total Dose (mL): 5 Contrast 2: Total Dose (mL): MEASUREMENTS (Male / Female) Normal Values 2D ECHO LV Diastolic Volume MOD 4C 73.4 cm??? LV Systolic Volume MOD 4C 27.5 cm??? LV Ejection Fraction MOD 4C 62.6 % LV Cardiac Index MOD 4C 1204.0 cm???/min???m??? LV Diastolic Length 4C 7.7 cm LV Systolic Length 4C 5.8 cm M-MODE LV Diastolic Diameter MM 6.6 cm 4.2 - 5.9 / 3.9 - 5.3 cm LV Systolic Diameter MM 5.3 cm LV Cardiac Index MM Teich 2232.5 cm???/min???m??? IVS Diastolic Thickness MM 0.9 cm 0.6 - 1.0 / 0.6 - 0.9 cm LVPW Diastolic Thickness MM 1.2 cm 0.6 - 1.0 / 0.6 - 0.9 cm LV Relative Wall Thickness MM 0.3 0.24 - 0.42 / 0.22 - 0.42 LV Mass Index MM 131.8 g/m??? 49 - 115 / 43 - 95 g/m??? DOPPLER Mitral E Point Velocity 102.5 cm/s Mitral A Point Velocity 40.5 cm/s Mitral E to A Ratio 2.5 MV Deceleration Time 256.4 ms MV E' Velocity 7.4 cm/s Mitral E to MV E' Ratio 13.8 FINDINGS Left Ventricle Normal LV size and wall thickness. Left ventricular ejection fraction is estimated at 50-55%. Echo contrast was used to optimize quality of images. Right Ventricle Right Atrium Left Atrium Mitral Valve Aortic Valve Tricuspid Valve Pulmonic Valve Pericardium Aorta CONCLUSIONS Limited study with echo contrast. Normal systolic function and ejection fraction in the range of 50-55% Previewed by: Dr. Beatrice Leon MD (Electronically Signed) Final Date: 25 August 2023 11:41
[2023-08-25 12:22] VITALS: BMI 26.3
--- NOTE | 2023-08-25 13:45 | P.PN ---
Subjective Progress Note Date: 08/25/23 History of present illness: This is a 73-year-old male patient of Dr. Lamb with past medical history of severe COPD, hypertension, heart failure, paroxysmal atrial fibrillation. Patient was admitted to the hospital due to symptoms of bleeding from the bilateral lower extremities with leg edema and acute diastolic heart failure developed while he was at care home for subacute rehab. Initial chest x-ray revealed acute pulmonary edema patient was started on IV Lasix. Patient is also on BiPAP and breathing easier today. He is on IV Lasix at 80 mg twice daily and Zaroxolyn has been added. EKG is sinus rhythm with nonspecific ST-T wave changes. Echocardiogram reveals EF of 50-55%, limited study. He has a negative fluid balance of 3810. Weights do not appear to be accurate. Repeat blood work reveals worsening renal failure with BUN 49 creatinine 1.51. Hemoglobin is 8.4, platelet count 103. Physical examination: Gen: This is a obese 73-year-old male. He is resting bed and appears to be fairly comfortable with BiPAP on. VS: reviewed HEENT: Head is atraumatic, normocephalic. Pupils equal, round. Sclerae is anicteric. NECK: Supple. No JVD. . LUNGS: Diminished bilaterally. No intercostal retractions. HEART: Regular rate and rhythm. No murmur. ABDOMEN: Soft No tenderness. EXTREMITIES: No pedal edema. No calf tenderness. NEUROLOGICAL: Patient is awake, alert and oriented x3. Assessment: Acute on chronic diastolic heart failure with acute pulmonary edema Paroxysmal atrial fibrillation Morbid obesity Chronic obstructive pulmonary disease exacerbation Chronic anemia Thrombocytopenia Acute kidney injury Plan: Decrease IV Lasix 80 mg to frequency of once daily, continue Zaroxolyn 5 mg daily Continue other cardiac medications Monitor I&O, daily weights, electrolytes and renal function Further recommendations to follow based upon clinical course Nurse practitioner note has been reviewed, I agree with documented findings and plan of care. Patient was seen and examined. Objective - Vital Signs Vital signs: Vital Signs Temp 98.8 F 08/25/23 04:00 Pulse 65 08/25/23 04:00 Resp 20 08/25/23 04:00 BP 115/55 08/25/23 04:00 Pulse Ox 94 L 08/25/23 04:00 FiO2 30 08/25/23 03:42 Intake & Output 08/24/23 08/25/23 08/25/23 18:59 06:59 18:59 Intake Total 370 240 Output Total 850 2200 Balance -480 -1960 Weight 78.5 kg Intake: IV 10 Invasive Line 1 10 Oral 360 240 Output: Urine 850 2200 Uretheral (Lynn) 850 Other: Voiding Method Indwelling Catheter Indwelling Catheter # Bowel Movements 1 - Labs CBC & Chem 7: 08/25/23 07:23 08/25/23 07:23 Labs: Abnormal Lab Results - Last 24 Hours (Table) 08/24/23 08/24/23 Range/Units 07:22 07:22 WBC 11.5 H (3.8-10.6) k/uL RBC 3.20 L (4.30-5.90) m/uL Hgb 8.7 L (13.0-17.5) gm/dL Hct 28.5 L (39.0-53.0) % MCHC 30.4 L (31.0-37.0) g/dL RDW 18.8 H (11.5-15.5) % Plt Count 96 L (150-450) k/uL Neutrophils # 9.3 H (1.3-7.7) k/uL Carbon Dioxide 31 H (22-30) mmol/L BUN 46 H (9-20) mg/dL Alkaline Phosphatase 136 H (38-126) U/L Total Protein 6.0 L (6.3-8.2) g/dL Albumin 3.1 L (3.5-5.0) g/dL Microbiology - Last 24 Hours (Table) 08/23/23 09:15 Blood Culture - Preliminary Blood 08/23/23 08:33 Blood Culture - Preliminary Blood
--- NOTE | 2023-08-25 13:49 | P.PN ---
Subjective Progress Note Date: 08/25/23 HISTORY OF PRESENT ILLNESS: This is a 73-year-old male with a previous medical history significant for hypertension and hypertensive cardiovascular disease, hyperlipidemia, obesity with obstructive sleep apnea and obesity hypoventilation syndrome, chronic diastolic heart failure, asthma, hypothyroidism, anxiety and depressive disorder, peripheral neuropathy, patient was recently discharged from [facility] after he was admitted to the hospital for acute diastolic heart failure and pulmonary edema, and he was discharged back to [facility] on the , patient was doing fine and he was seen on Friday he was doing fine suddenly developed to have a significant weeping from both lower extremities despite taken spironolactone as well as Lasix and Farxiga, patient has been on oxygen at 4 L Cannula, patient weight has been increased, with increased weeping from both lower extremities, the nursing staff came to see the patient in the morning and he was unresponsive with oxygen saturation in the low 80s, 911 was called and the patient was. On the high flow oxygen he went up to 88%, patient was transported to the emergency department at [facility], had a chest x- ray that showed bulbar edema, he was placed on a BiPAP, with Lasix 40 mg IV push, he felt much better he is sitting down in bed, he continues to be somewhat short of breath, he continues to have significant swelling in both lower extremities with minimal denuded blister in the left lower extremity, he does appear to have a chronic stasis edema, patient appears to be more awake and alert at the time of evaluation in the ER. Patient will be admitted to the hospital for acute diastolic heart failure with The BiPAP, Would Be Started on Lasix 80 Mg IV Push Every 12 Hours. 08/24: Patient is feeling better today, he continues to be on 4 L nasal cannula, he denies any chest pain, isosorbide, uses the BiPAP on and off, he is diuresing with Lasix 80 mg IV push every 12 hours, he is continued for sick at 10 mg every day, spironolactone 25 mg once every day, monitor the patient input and output and daily weight, follow the patient very closely. Cardiology is to see the patient as he is complaining of chest pin suggestive of CAD 08/25: Patient continues to have slow improvement of his breathing status. Patient is on BiPAP during the night with pulse ox of 94%, currently on 4 L nasal cannula with pulse ox of 97%. Heart rate is mostly in the 50s and 60s, blood pressure 104/56. Repeat blood work reveals WBC 10.1, hemoglobin 8.4, platelet count 103. Sodium 138, potassium 3.9, BUN 49 creatinine 1.51. CO2 is 31. Limited echocardiogram reveals EF of 50-55%. Patient has a negative fluid balance. Weights do not appear to be accurate. Cardiology has decreased frequency of IV Lasix 80 mg 2 once daily and continued Zaroxolyn for today. REVIEW OF SYSTEMS: Constitutional: No documented fever, no chills, no night sweats. No weight change. No weakness, fatigue or lethargy. No daytime sleepiness. HEENT: No headache. No blurred vision or double vision, no loss of vision. No loss of Hearing, no ringing in the ears, no dizziness. No nasal drainage or congestion. No epistaxis. No sore throat. Lungs: positive for shortness of breathimproving, occasional cough, minimal sputum production. No wheezing. Reports dyspnea with activity. Cardiovascular: Denies chest pain, positive for lower extremity edema. No palpitations. No paroxysmal nocturnal dyspnea. No orthopnea. No lighth eadedness or dizziness. No syncopal episodes. Abdominal: Denies abdominal pain. No nausea, vomiting. No diarrhea. No constipation. No bloody or tarry stools reports loss of appetite. Genitourinary: No dysuria, increased frequency, urgency. No urinary retention. Musculoskeletal: No myalgias. positive for muscle weakness, positive for gait dysfunction, positive for frequent falls. positive for back pain. No neck pain, bilateral hip pain Integumentary: No wounds, no lesions. No rash or pruritus. No unusual bruising. No change in hair or nails. Neurologic: No aphasia. No facial droop. No change in mentation. No head injury. No headache. No paralysis. No paresthesia. Psychiatric: No depression. No anxiety. No mood swings. Endocrine: No abnormal blood sugars. No weight change. PHYSICAL EXAMINATION: General: 72-year-old male lying down in bed in no respiratory distress HEENT: Head is atraumatic, normocephalic, pupils were equal round reactive to light and recommendation, extraocular muscle movement were intact, sclera nonicteric, conjunctivae were pale, mucous membranes of the mouth are somewhat dry. Neck: Supple, no JVP, normal carotid upstroke bilaterally, no lymphadenopathy. Chest: Decreased breath sounds at the bases, few rhonchi, no expiratory wheezes, no chest wall tenderness, no intercostal retractions. Heart: First heart sound is normal, second heart sound is normal, there is systolic ejection murmur 2/6 located in the left sternal border. Abdomen: Soft, nontender, nondistended, positive bowel sounds, obese. Extremities: There is +1 edema no calf tenderness DP +2 bilaterally, there is bilateral scabbed lesions in both shins free Neurologic examination: Patient is awake alert and oriented X 3, cranial nerves II-12 appear grossly intact, muscle power were 5 out of 5 in upper extremities and 3/5 in bilateral lower extremities ASSESSMENT AND PLAN: 1. Acute hypoxemic respiratory failure due to acute on chronic diastolic heart failure and COPD wit RAMYA and OHS . patient is on Lasix 80 mg IV push decreased frequency to once daily, monitor input and output and daily weight, continue spironolactone 25 mg orally once every day, continue patient on Farxiga 10 mg orally once every day, metoprolol 37.5 mg orally twice every day, metolazone 5 mg daily cardiology consultation appreciated. 2. COPD/moderate persistent asthma and not in exacerbation with chronic hypoxemic respiratory failure continue oxygen support continue DuoNeb 3 mg nebulization 4 times every day. 3. Paroxysmal atrial fibrillation/ Flutter. Continue patient on metoprolol 37.5 mg orally twice every day, on Xarelto 15 mg orally once every day 4. Hypertension and hypertensive cardiovascular disease. Continue patient on metoprolol 25 mg orally twice every day, monitor the patient blood pressure very closely. 5. Hyperlipidemia. Continue patient on atorvastatin 20 mg orally once every day, monitor lipid panel, keep LDL 55-70. 6. Enlarged prostate. Continue patient on tamsulosin 0.4 mg orally once every day. 7. Anxiety disorder. Continue patient on sertraline 100 mg orally once every day. 8. Neuropathy. Continue patient on gabapentin 300 mg at bedtime. 9. Chest pain possible CAD. cardiology evaluation. 10 Depression. we will continue with Sertraline 100 mg po daily 11. DVT prophylaxis. Continue Xarelto 15 mg po daily 12. GI prophylaxis. Continue patient on Protonix 40 mg orally once every day. 13. PT evaluation. 14. public health outreach worker consult. Discharge planning to return to [facility]. 15. DNR Impression and plan of care have been directed as dictated by the signing physician. Concepción Perkins nurse practitioner acting as scribe for signing physician. Objective - Vital Signs Vital signs: Vital Signs Temp 98.6 F 08/25/23 13:10 Pulse 79 08/25/23 13:10 Resp 22 08/25/23 13:10 BP 102/70 08/25/23 13:10 Pulse Ox 96 08/25/23 13:10 FiO2 30 08/25/23 03:42 Intake & Output 08/24/23 08/25/23 08/25/23 18:59 06:59 18:59 Intake Total 370 240 460 Output Total 850 2200 1300 Balance -480 -4365 -840 Weight 78.5 kg 78.5 kg Intake: IV 10 Invasive Line 1 10 Oral 360 240 460 Output: Urine 850 2200 1300 Uretheral (Lynn) 850 Other: Voiding Method Indwelling Catheter Indwelling Catheter Indwelling Catheter # Bowel Movements 1 1 - Labs CBC & Chem 7: 08/25/23 07:23 08/25/23 07:23 Labs: Abnormal Lab Results - Last 24 Hours (Table) 08/25/23 08/25/23 Range/Units 07:23 07:23 RBC 3.09 L (4.30-5.90) m/uL Hgb 8.4 L (13.0-17.5) gm/dL Hct 27.5 L (39.0-53.0) % MCHC 30.6 L (31.0-37.0) g/dL RDW 18.8 H (11.5-15.5) % Plt Count 103 L (150-450) k/uL Carbon Dioxide 31 H (22-30) mmol/L BUN 49 H (9-20) mg/dL Creatinine 1.51 H (0.66-1.25) mg/dL Total Bilirubin 1.4 H (0.2-1.3) mg/dL Alkaline Phosphatase 164 H (38-126) U/L Total Protein 6.0 L (6.3-8.2) g/dL Albumin 3.1 L (3.5-5.0) g/dL Microbiology - Last 24 Hours (Table) 08/23/23 09:15 Blood Culture - Preliminary Blood 08/23/23 08:33 Blood Culture - Preliminary Blood
[2023-08-25] MEDS ORDERED: NON FORMULARY DRUG (Tirzepatide [Mounjaro] 2.5 MG/0.5 ML Pen.Injctr) SQ SCH (15:43)
[2023-08-25] MEDS: RIVAROXABAN 15 MG TAB PO SCH (16:47)
[2023-08-25] MEDS: ACETAMINOPHEN TAB 500 MG TAB PO PRN (16:48)
[2023-08-25] MEDS: SERTRALINE 100 MG TAB PO SCH (21:01)
[2023-08-25] MEDS: ATORVASTATIN 20 MG TAB PO SCH (21:01)
[2023-08-25] MEDS: MONTELUKAST 10 MG TAB PO SCH (21:01)
[2023-08-25] MEDS: MELATONIN 5 MG TABLET PO PRN (21:01)
[2023-08-25] MEDS: GABAPENTIN 300 MG CAP PO SCH (21:01)
[2023-08-25] MEDS: BENZONATATE 100 MG CAP PO PRN (21:01)
[2023-08-25] MEDS: NYSTATIN 100,000 UNIT/ML SUSP 500,000 UNIT/5 ML CUP PO SCH (21:02)
[2023-08-25] MEDS: NYSTATIN 100,000 UNIT/GM POWD 15 GM TOPICAL SCH (21:02)
[2023-08-26] MEDS: PANTOPRAZOLE 40 MG TABLET PO SCH (04:56)
[2023-08-26] MEDS: SPIRONOLACTONE 25 MG TAB PO SCH (08:15)
[2023-08-26] MEDS: metOLazone 5 MG TAB PO SCH (08:15)
[2023-08-26] MEDS: DAPAGLIFLOZIN PROPANEDIOL 10 MG TABLET PO SCH (08:15)
[2023-08-26] MEDS: METOPROLOL TARTRATE 12.5 MG TAB PO SCH ×2 (08:15→20:25)
[2023-08-26] MEDS: TAMSULOSIN 0.4 MG CAP.ER.24H PO SCH (08:15)
[2023-08-26] MEDS: FUROSEMIDE 10 MG/ML 10 ML VIAL IV SCH (08:15)
[2023-08-26] MEDS: CHOLECALCIFEROL 25 MCG (1000 IU) TABLET PO SCH (08:16)
[2023-08-26] MEDS: NYSTATIN 100,000 UNIT/ML SUSP 500,000 UNIT/5 ML CUP PO SCH ×3 (08:16→20:27)
[2023-08-26] MEDS: MAGNESIUM OXIDE 400 MG TAB PO SCH (08:16)
[2023-08-26] MEDS: NYSTATIN 100,000 UNIT/GM POWD 15 GM TOPICAL SCH ×2 (08:16→20:25)
[2023-08-26] MEDS: allopurinoL 100 MG TAB PO SCH (08:21)
[2023-08-26] MEDS: BUDESONIDE 1 MG/2 ML NEBU INHALATION SCH ×2 (08:24→20:52)
[2023-08-26] MEDS: IPRATROPIUM-ALBUTEROL 3 ML NEB INHALATION SCH ×4 (08:24→20:52)
[2023-08-26 09:18] LABS: Anisocytosis Slight; HCT 28.9 % (39.0-53.0); HGB 8.7 gm/dL (13.0-17.5); Hypochromasia Marked; MCH 26.9 pg (25.0-35.0); MCV 89.6 fL (80.0-100.0); Mean Platelet Volume 7.9; RBC 3.22 m/uL (4.30-5.90); RDW 18.5 % (11.5-15.5); WBC 16.4 k/uL (3.8-10.6)
[2023-08-26 09:22] LABS: Platelet Count 86 k/uL (150-450)
[2023-08-26 09:27] LABS: ALT 27 U/L (4-49); AST 33 U/L (17-59); African American GFR (CKD) 46 (>60 ml/min/1.73 sqM); Albumin 3.2 g/dL (3.5-5.0); Alkaline Phosphatase 177 U/L (38-126); Anion Gap 9 mmol/L; Blood Urea Nitrogen 54 mg/dL (9-20); Calcium 8.4 mg/dL (8.4-10.2); Carbon Dioxide 31 mmol/L (22-30); Chloride 96 mmol/L (98-107); Glucose 115 mg/dL (74-99); Non-African American GFR(CKD) 39 (>60 ml/min/1.73 sqM); Potassium 3.6 mmol/L (3.5-5.1); Sodium 136 mmol/L (137-145); Total Bilirubin 1.6 mg/dL (0.2-1.3); Total Protein 6.3 g/dL (6.3-8.2)
--- NOTE | 2023-08-26 15:31 | P.PN ---
Subjective Progress Note Date: 08/26/23 History of present illness: This is a 73-year-old male patient of Dr. Lamb with past medical history of severe COPD, hypertension, heart failure, paroxysmal atrial fibrillation. Patient was admitted to the hospital due to symptoms of bleeding from the bilateral lower extremities with leg edema and acute diastolic heart failure developed [facility]. Initial chest x-ray revealed acute pulmonary edema patient was started on IV Lasix. Patient is also on BiPAP and breathing easier today. He is on IV Lasix at 80 mg twice daily and Zaroxolyn has been added. EKG is sinus rhythm with nonspecific ST-T wave changes. Echocardiogram reveals EF of 50-55%, limited study. He has a negative fluid balance of 3810. Weights do not appear to be accurate. Repeat blood work reveals worsening renal failure with BUN 49 creatinine 1.51. Hemoglobin is 8.4, platelet count 103. 08/26 Patient is seen today in follow-up. He has had increase in BUN and creatinine at 54 and 1.7. He has been on IV Lasix 80 mg daily. His home dose is 60 mg daily. Blood pressure 121/72, pulse ox 94% on 4 L nasal cannula and heart rate in the 70s. Telemetry is sinus rhythm Repeat blood work reveals WBC 16.4, hemoglobin 8.7 and platelet count 86. Sodium 136, potassium 3.6, BUN 54 cre atinine 1.7. A limited echocardiogram reveals EF of 50-55%. Physical examination: Gen: This is a obese 73-year-old male. He is resting in recliner and appears to be fairly comfortable on nasal O2. VS: reviewed HEENT: Head is atraumatic, normocephalic. Pupils equal, round. Sclerae is ani cteric. NECK: Supple. No JVD. LUNGS: Diminished bilaterally. No intercostal retractions. HEART: Regular rate and rhythm. No murmur. EXTREMITIES: +pedal edema. Dressing in place to the left lower extremity NEUROLOGICAL: Patient is awake, alert and oriented x3. Assessment: Acute on chronic diastolic heart failure with acute pulmonary edema Paroxysmal atrial fibrillation Morbid obesity Chronic obstructive pulmonary disease exacerbation Chronic anemia Thrombocytopenia Acute kidney injury Plan: Transition IV Lasix 80 mg to oral, continue Zaroxolyn 5 mg daily Continue other cardiac medications Monitor I&O, daily weights, electrolytes and renal function Further recommendations to follow based upon clinical course Nurse practitioner note has been reviewed, I agree with documented findings and plan of care. Patient was seen and examined. Objective - Vital Signs Vital signs: Vital Signs Temp 98.7 F 08/26/23 08:13 Pulse 76 08/26/23 08:33 Resp 17 08/26/23 08:13 BP 121/72 08/26/23 08:13 Pulse Ox 94 L 08/26/23 08:13 FiO2 30 08/26/23 03:57 Intake & Output 08/25/23 08/26/23 08/26/23 18:59 06:59 18:59 Intake Total 570 200 350 Output Total 1999 775 Balance -1430 -575 350 Weight 78.5 kg 89 kg Intake: Oral 570 200 350 Output: Urine 1999 775 Other: Voiding Method Indwelling Catheter Indwelling Catheter # Bowel Movements 1 - Labs CBC & Chem 7: 08/26/23 08:01 08/26/23 08:01 Labs: Abnormal Lab Results - Last 24 Hours (Table) 08/26/23 08/26/23 Range/Units 08:01 08:01 WBC 16.4 H (3.8-10.6) k/uL RBC 3.22 L (4.30-5.90) m/uL Hgb 8.7 L (13.0-17.5) gm/dL Hct 28.9 L (39.0-53.0) % MCHC 30.0 L (31.0-37.0) g/dL RDW 18.5 H (11.5-15.5) % Plt Count 86 L (150-450) k/uL Sodium 136 L (137-145) mmol/L Chloride 96 L (98-107) mmol/L Carbon Dioxide 31 H (22-30) mmol/L BUN 54 H (9-20) mg/dL Creatinine 1.70 H (0.66-1.25) mg/dL Glucose 115 H (74-99) mg/dL Total Bilirubin 1.6 H (0.2-1.3) mg/dL Alkaline Phosphatase 177 H (38-126) U/L Albumin 3.2 L (3.5-5.0) g/dL Microbiology - Last 24 Hours (Table) 08/23/23 09:15 Blood Culture - Preliminary Blood 08/23/23 08:33 Blood Culture - Preliminary Blood
--- NOTE | 2023-08-26 15:40 | P.PN ---
Subjective Progress Note Date: 08/26/23 HISTORY OF PRESENT ILLNESS: This is a 73-year-old male with a previous medical history significant for hypertension and hypertensive cardiovascular disease, hyperlipidemia, obesity with obstructive sleep apnea and obesity hypoventilation syndrome, chronic diastolic heart failure, asthma, hypothyroidism, anxiety and depressive disorder, peripheral neuropathy, patient was recently discharged from [facility] after he was admitted to the hospital for acute diastolic heart failure and pulmonary edema, and he was discharged back to [facility] on the , patient was doing fine and he was seen on Friday he was doing fine suddenly developed to have a significant weeping from both lower extremities despite taken spironolactone as well as Lasix and Farxiga, patient has been on oxygen at 4 L Cannula, patient weight has been increased, with increased weeping from both lower extremities, the nursing staff came to see the patient in the morning and he was unresponsive with oxygen saturation in the low 80s, 911 was called and the patient was. On the high flow oxygen he went up to 88%, patient was transported to the emergency department at [facility], had a chest x- ray that showed bulbar edema, he was placed on a BiPAP, with Lasix 40 mg IV push, he felt much better he is sitting down in bed, he continues to be somewhat short of breath, he continues to have significant swelling in both lower extremities with minimal denuded blister in the left lower extremity, he does appear to have a chronic stasis edema, patient appears to be more awake and alert at the time of evaluation in the ER. Patient will be admitted to the hospital for acute diastolic heart failure with The BiPAP, Would Be Started on Lasix 80 Mg IV Push Every 12 Hours. 08/24: Patient is feeling better today, he continues to be on 4 L nasal cannula, he denies any chest pain, isosorbide, uses the BiPAP on and off, he is diuresing with Lasix 80 mg IV push every 12 hours, he is continued for sick at 10 mg every day, spironolactone 25 mg once every day, monitor the patient input and output and daily weight, follow the patient very closely. Cardiology is to see the patient as he is complaining of chest pin suggestive of CAD 08/25: Patient continues to have slow improvement of his breathing status. Patient is on BiPAP during the night with pulse ox of 94%, currently on 4 L nasal cannula with pulse ox of 97%. Heart rate is mostly in the 50s and 60s, blood pressure 104/56. Repeat blood work reveals WBC 10.1, hemoglobin 8.4, platelet count 103. Sodium 138, potassium 3.9, BUN 49 creatinine 1.51. CO2 is 31. Limited echocardiogram reveals EF of 50-55%. Patient has a negative fluid balance. Weights do not appear to be accurate. Cardiology has decreased frequency of IV Lasix 80 mg 2 once daily and continued Zaroxolyn for today. 08/26: Patient has been seen by cardiology and IV Lasix has been transitioned to oral at 80 mg daily and continued on Zaroxolyn 5 mg daily. He has had increase in his BUN to 54 and creatinine 1.7. His breathing status seems to be stable. He is using BiPAP when sleeping at nighttime and on nasal cannula during the day at 4 L. His heart rate is running in the 70s, blood pressure 121/72. Other blood work reveals hemoglobin is stable at 8.7, WBC 16.4 platelet count 86. REVIEW OF SYSTEMS: Constitutional: No documented fever, no chills, no night sweats. No weight change. No weakness, fatigue or lethargy. No daytime sleepiness. HEENT: No headache. No blurred vision or double vision, no loss of vision. No loss of Hearing, no ringing in the ears, no dizziness. No nasal drainage or congestion. No epistaxis. No sore throat. Lungs: positive for shortness of breathimproving, occasional cough, minimal sputum production. No wheezing. Reports dyspnea with activity. Cardiovascular: Denies chest pain, positive for lower extremity edema. No palpitations. No paroxysmal nocturnal dyspnea. No orthopnea. No lightheadedness or dizziness. No syncopal episodes. Abdominal: Denies abdominal pain. No nausea, vomiting. No diarrhea. No cons tipation. No bloody or tarry stools reports loss of appetite. Genitourinary: No dysuria, increased frequency, urgency. No urinary retention. Musculoskeletal: No myalgias. positive for muscle weakness, positive for gait dysfunction, positive for frequent falls. positive for back pain. No neck pain, bilateral hip pain Integumentary: No wounds, no lesions. No rash or pruritus. No unusual bru ising. No change in hair or nails. Neurologic: No aphasia. No facial droop. No change in mentation. No head injury. No headache. No paralysis. No paresthesia. Psychiatric: No depression. No anxiety. No mood swings. Endocrine: No abnormal blood sugars. No weight change. PHYSICAL EXAMINATION: General: 72-year-old male lying down in bed in no respiratory distress HEENT: Head is atraumatic, normocephalic, pupils were equal round reactive to light and recommendation, extraocular muscle movement were intact, sclera nonicteric, conjunctivae were pale, mucous membranes of the mouth are somewhat dry. Neck: Supple, no JVP, normal carotid upstroke bilaterally, no lymphadenopathy. Chest: Decreased breath sounds at the bases, few rhonchi, no expiratory wheezes, no chest wall tenderness, no intercostal retractions. Heart: First heart sound is normal, second heart sound is normal, there is systolic ejection murmur 2/6 located in the left sternal border. Abdomen: Soft, nontender, nondistended, positive bowel sounds, obese. Extremities: There is +1 edema no calf tenderness DP +2 bilaterally, there is bilateral scabbed lesions in both shins free Neurologic examination: Patient is awake alert and oriented X 3, cranial nerves II-12 appear grossly intact, muscle power were 5 out of 5 in upper extremities and 3/5 in bilateral lower extremities ASSESSMENT AND PLAN: 1. Acute hypoxemic respiratory failure due to acute on chronic diastolic heart failure and COPD wit RAMYA and OHS . patient is on Lasix 80 mg oral daily, monitor input and output and daily weight, continue spironolactone 25 mg orally once every day, continue patient on Farxiga 10 mg orally once every day, metoprolol 37.5 mg orally twice every day, metolazone 5 mg daily cardiology consultation appreciated. 2. COPD/moderate persistent asthma and not in exacerbation with chronic hypoxemic respiratory failure continue oxygen support continue DuoNeb 3 mg nebulization 4 times every day. 3. Paroxysmal atrial fibrillation/ Flutter. Continue patient on metoprolol 37.5 mg orally twice every day, on Xarelto 15 mg orally once every day 4. Hypertension and hypertensive cardiovascular disease. Continue patient on metoprolol 25 mg orally twice every day, monitor the patient blood pressure very closely. 5. Hyperlipidemia. Continue patient on atorvastatin 20 mg orally once every day, monitor lipid panel, keep LDL 55-70. 6. Enlarged prostate. Continue patient on tamsulosin 0.4 mg orally once every day. 7. Anxiety disorder. Continue patient on sertraline 100 mg orally once every day. 8. Neuropathy. Continue patient on gabapentin 300 mg at bedtime. 9. Thrombocytopenia. Continue to monitor 10. Acute kidney injury. Lasix has been decreased to 80 mg oral daily. Continue to monitor renal function, avoid nephrotoxic agents. 11. Depression. we will continue with Sertraline 100 mg po daily 12. DVT prophylaxis. Continue Xarelto 15 mg po daily 13. GI prophylaxis. Continue patient on Protonix 40 mg orally once every day. 13. PT evaluation and homeworker consult. Discharge planning to return to [facility]. 15. DNR Impression and plan of care have been directed as dictated by the signing physician. Concepción Perkins nurse practitioner acting as scribe for signing physici an. Objective - Vital Signs Vital signs: Vital Signs Temp 98.7 F 08/26/23 08:13 Pulse 76 08/26/23 08:33 Resp 17 08/26/23 08:13 BP 121/72 08/26/23 08:13 Pulse Ox 94 L 08/26/23 08:13 FiO2 30 08/26/23 03:57 Intake & Output 08/25/23 08/26/23 08/26/23 18:59 06:59 18:59 Intake Total 570 200 350 Output Total 1999 775 Balance -1430 575 350 Weight 78.5 kg 89 kg Intake: Oral 570 200 350 Output: Urine 1999 775 Other: Voiding Method Indwelling Catheter Indwelling Catheter # Bowel Movements 1 - Labs CBC & Chem 7: 08/26/23 08:01 08/26/23 08:01 Labs: Abnormal Lab Results - Last 24 Hours (Table) 08/26/23 08/26/23 Range/Units 08:01 08:01 WBC 16.4 H (3.8-10.6) k/uL RBC 3.22 L (4.30-5.90) m/uL Hgb 8.7 L (13.0-17.5) gm/dL Hct 28.9 L (39.0-53.0) % MCHC 30.0 L (31.0-37.0) g/dL RDW 18.5 H (11.5-15.5) % Plt Count 86 L (150-450) k/uL Sodium 136 L (137-145) mmol/L Chloride 96 L (98-107) mmol/L Carbon Dioxide 31 H (22-30) mmol/L BUN 54 H (9-20) mg/dL Creatinine 1.70 H (0.66-1.25) mg/dL Glucose 115 H (74-99) mg/dL Total Bilirubin 1.6 H (0.2-1.3) mg/dL Alkaline Phosphatase 177 H (38-126) U/L Albumin 3.2 L (3.5-5.0) g/dL Microbiology - Last 24 Hours (Table) 08/23/23 09:15 Blood Culture - Preliminary Blood 08/23/23 08:33 Blood Culture - Preliminary Blood
[2023-08-26] MEDS: RIVAROXABAN 15 MG TAB PO SCH (18:18)
[2023-08-26] MEDS: GABAPENTIN 300 MG CAP PO SCH (20:25)
[2023-08-26] MEDS: ATORVASTATIN 20 MG TAB PO SCH (20:25)
[2023-08-26] MEDS: MONTELUKAST 10 MG TAB PO SCH (20:25)
[2023-08-26] MEDS: SERTRALINE 100 MG TAB PO SCH (20:25)
[2023-08-27] MEDS: PANTOPRAZOLE 40 MG TABLET PO SCH (06:45)
[2023-08-27] MEDS: IPRATROPIUM-ALBUTEROL 3 ML NEB INHALATION SCH ×4 (09:29→21:33)
[2023-08-27] MEDS: BUDESONIDE 1 MG/2 ML NEBU INHALATION SCH ×2 (09:29→21:33)
[2023-08-27] MEDS: BENZONATATE 100 MG CAP PO PRN ×2 (10:03→17:03)
[2023-08-27] MEDS: allopurinoL 100 MG TAB PO SCH (10:03)
[2023-08-27] MEDS: CHOLECALCIFEROL 25 MCG (1000 IU) TABLET PO SCH (10:03)
[2023-08-27] MEDS: DAPAGLIFLOZIN PROPANEDIOL 10 MG TABLET PO SCH (10:04)
[2023-08-27] MEDS: FUROSEMIDE 80 MG TAB PO SCH (10:04)
[2023-08-27] MEDS: TAMSULOSIN 0.4 MG CAP.ER.24H PO SCH (10:04)
[2023-08-27] MEDS: MAGNESIUM OXIDE 400 MG TAB PO SCH (10:04)
[2023-08-27] MEDS: METOPROLOL TARTRATE 12.5 MG TAB PO SCH ×2 (10:04→21:43)
[2023-08-27] MEDS: NYSTATIN 100,000 UNIT/ML SUSP 500,000 UNIT/5 ML CUP PO SCH ×3 (10:04→21:45)
[2023-08-27] MEDS: metOLazone 5 MG TAB PO SCH (10:04)
[2023-08-27] MEDS: SPIRONOLACTONE 25 MG TAB PO SCH (10:04)
[2023-08-27] MEDS: NYSTATIN 100,000 UNIT/GM POWD 15 GM TOPICAL SCH ×2 (10:06→21:44)
[2023-08-27 10:55] LABS: Anisocytosis Slight; HCT 26.9 % (39.0-53.0); HGB 8.4 gm/dL (13.0-17.5); Hypochromasia Marked; MCH 27.7 pg (25.0-35.0); MCHC 31.4 g/dL (31.0-37.0); MCV 88.3 fL (80.0-100.0); Mean Platelet Volume 7.6; RBC 3.05 m/uL (4.30-5.90); RDW 18.4 % (11.5-15.5); WBC 13.3 k/uL (3.8-10.6)
[2023-08-27 11:05] LABS: Platelet Count 87 k/uL (150-450)
[2023-08-27 11:41] LABS: ALT 26 U/L (4-49); AST 36 U/L (17-59); African American GFR (CKD) 40 (>60 ml/min/1.73 sqM); Alkaline Phosphatase 199 U/L (38-126); Anion Gap 6 mmol/L; Blood Urea Nitrogen 61 mg/dL (9-20); Calcium 8.1 mg/dL (8.4-10.2); Carbon Dioxide 33 mmol/L (22-30); Chloride 95 mmol/L (98-107); Glucose 135 mg/dL (74-99); Non-African American GFR(CKD) 34 (>60 ml/min/1.73 sqM); Potassium 3.5 mmol/L (3.5-5.1); Sodium 134 mmol/L (137-145); Total Bilirubin 1.3 mg/dL (0.2-1.3)
--- NOTE | 2023-08-27 13:19 | P.PN ---
Subjective Progress Note Date: 08/27/23 History of present illness: This is a 73-year-old male patient of Dr. Lamb with past medical history of severe COPD, hypertension, heart failure, paroxysmal atrial fibrillation. Patient was admitted to the hospital due to symptoms of bleeding from the bilateral lower extremities with leg edema and acute diastolic heart failure developed while he was at [facility] for subacute rehab. Initial chest x-ray revealed acute pulmonary edema patient was started on IV Lasix. Patient is also on BiPAP and breathing easier today. He is on IV Lasix at 80 mg twice daily and Zaroxolyn has been added. EKG is sinus rhythm with nonspecific ST-T wave changes. Echocardiogram reveals EF of 50-55%, limited study. He has a negative fluid balance of 3810. Weights do not appear to be accurate. Repeat blood work reveals worsening renal failure with BUN 49 creatinine 1.51. Hemoglobin is 8.4, platelet count 103. 08/26 Patient is seen today in follow-up. He has had increase in BUN and creatinine at 54 and 1.7. He has been on IV Lasix 80 mg daily. His home dose is 60 mg daily. Blood pressure 121/72, pulse ox 94% on 4 L nasal cannula and heart rate in the 70s. Telemetry is sinus rhythm Repeat blood work reveals WBC 16.4, hemoglobin 8.7 and platelet count 86. Sodium 136, potassium 3.6, BUN 54 cre atinine 1.7. A limited echocardiogram reveals EF of 50-55%. 08/27 Patient has been afebrile, heart rate in 60s and 70s, blood pressure 94/52, pulse ox 90% on 4 L nasal cannula. 4 L is patient's baseline. WBC 13.3, hemoglobin 8.4, platelet count 87. Sodium 134, BUN 61 creatinine 1.89. Patient is now maintained on Lasix 80 mg oral daily. Physical examination: Gen: This is a obese 73-year-old male. He is resting in recliner and appears to be fairly comfortable on nasal O2. VS: reviewed HEENT: Head is atraumatic, normocephalic. Pupils equal, round. Sclerae is anicteric. NECK: Supple. No JVD. LUNGS: Diminished bilaterally. +rhonchi. No intercostal retractions. HEART: Regular rate and rhythm. No murmur. EXTREMITIES: +pedal edema. Dressing in place to the left lower extremity NEUROLOGICAL: Patient is awake, alert and oriented x3. Assessment: Acute on chronic diastolic heart failure with acute pulmonary edema Paroxysmal atrial fibrillation Morbid obesity Chronic obstructive pulmonary disease exacerbation Chronic anemia Thrombocytopenia Acute kidney injury Plan: Continue Lasix 80 mg oral daily and continue Zaroxolyn 5 mg daily Continue other cardiac medications Monitor I&O, daily weights, electrolytes and renal function Further recommendations to follow based upon clinical course Nurse practitioner note has been reviewed, I agree with documented findings and plan of care. Patient was seen and examined. Objective - Vital Signs Vital signs: Vital Signs Temp 97.6 F 08/27/23 09:50 Pulse 70 08/27/23 13:09 Resp 22 08/27/23 11:30 BP 94/52 08/27/23 11:30 Pulse Ox 98 08/27/23 11:30 FiO2 30 08/27/23 04:00 Intake & Output 08/26/23 08/27/23 08/27/23 18:59 06:59 18:59 Intake Total 460 200 Output Total 1520 750 Balance -1060 -750 200 Weight 107 kg Intake: Oral 460 200 Output: Urine 1520 750 Other: Voiding Method Indwelling Catheter Indwelling Catheter Indwelling Catheter - Labs CBC & Chem 7: 08/27/23 10:35 08/27/23 10:35 Labs: Abnormal Lab Results - Last 24 Hours (Table) 08/27/23 08/27/23 Range/Units 10:35 10:35 WBC 13.3 H (3.8-10.6) k/uL RBC 3.05 L (4.30-5.90) m/uL Hgb 8.4 L (13.0-17.5) gm/dL Hct 26.9 L (39.0-53.0) % RDW 18.4 H (11.5-15.5) % Plt Count 87 L (150-450) k/uL Sodium 134 L (137-145) mmol/L Chloride 95 L (98-107) mmol/L Carbon Dioxide 33 H (22-30) mmol/L BUN 61 H (9-20) mg/dL Creatinine 1.89 H (0.66-1.25) mg/dL Glucose 135 H (74-99) mg/dL Calcium 8.1 L (8.4-10.2) mg/dL Alkaline Phosphatase 199 H (38-126) U/L Total Protein 6.0 L (6.3-8.2) g/dL Albumin 3.0 L (3.5-5.0) g/dL Microbiology - Last 24 Hours (Table) 08/23/23 09:15 Blood Culture - Preliminary Blood 08/23/23 08:33 Blood Culture - Preliminary Blood
--- NOTE | 2023-08-27 15:12 | P.PN ---
Subjective Progress Note Date: 08/27/23 HISTORY OF PRESENT ILLNESS: This is a 73-year-old male with a previous medical history significant for hypertension and hypertensive cardiovascular disease, hyperlipidemia, obesity with obstructive sleep apnea and obesity hypoventilation syndrome, chronic diastolic heart failure, asthma, hypothyroidism, anxiety and depressive disorder, peripheral neuropathy, patient was recently discharged from [facility] after he was admitted to the hospital for acute diastolic heart failure and pulmonary edema, and he was discharged back to [facility] on the , patient was doing fine and he was seen on Friday he was doing fine suddenly developed to have a significant weeping from both lower extremities despite taken spironolactone as well as Lasix and Farxiga, patient has been on oxygen at 4 L Cannula, patient weight has been increased, with increased weeping from both lower extremities, the nursing staff came to see the patient in the morning and he was unresponsive with oxygen saturation in the low 80s, 911 was called and the patient was. On the high flow oxygen he went up to 88%, patient was transported to the emergency department at [facility], had a chest x- ray that showed bulbar edema, he was placed on a BiPAP, with Lasix 40 mg IV push, he felt much better he is sitting down in bed, he continues to be somewhat short of breath, he continues to have significant swelling in both lower extremities with minimal denuded blister in the left lower extremity, he does appear to have a chronic stasis edema, patient appears to be more awake and alert at the time of evaluation in the ER. Patient will be admitted to the hospital for acute diastolic heart failure with The BiPAP, Would Be Started on Lasix 80 Mg IV Push Every 12 Hours. 08/24: Patient is feeling better today, he continues to be on 4 L nasal cannula, he denies any chest pain, isosorbide, uses the BiPAP on and off, he is diuresing with Lasix 80 mg IV push every 12 hours, he is continued for sick at 10 mg every day, spironolactone 25 mg once every day, monitor the patient input and output and daily weight, follow the patient very closely. Cardiology is to see the patient as he is complaining of chest pin suggestive of CAD 08/25: Patient continues to have slow improvement of his breathing status. Patient is on BiPAP during the night with pulse ox of 94%, currently on 4 L nasal cannula with pulse ox of 97%. Heart rate is mostly in the 50s and 60s, blood pressure 104/56. Repeat blood work reveals WBC 10.1, hemoglobin 8.4, platelet count 103. Sodium 138, potassium 3.9, BUN 49 creatinine 1.51. CO2 is 31. Limited echocardiogram reveals EF of 50-55%. Patient has a negative fluid balance. Weights do not appear to be accurate. Cardiology has decreased frequency of IV Lasix 80 mg 2 once daily and continued Zaroxolyn for today. 08/26: Patient has been seen by cardiology and IV Lasix has been transitioned to oral at 80 mg daily and continued on Zaroxolyn 5 mg daily. He has had increase in his BUN to 54 and creatinine 1.7. His breathing status seems to be stable. He is using BiPAP when sleeping at nighttime and on nasal cannula during the day at 4 L. His heart rate is running in the 70s, blood pressure 121/72. Other blood work reveals hemoglobin is stable at 8.7, WBC 16.4 platelet count 86. 08/27: Patient has been seen by cardiology today with recommendations to continue oral Lasix at 80 mg daily and metolazone 5 mg daily. Blood pressures been on the soft side 94/52, heart rate in the 60s and 70s. He has been afebrile, pulse ox 90% on 4 L nasal cannula. Repeat blood work reveals WBC 13.3, hemoglobin 8.4, platelet count 87. Sodium 134, BUN 61 creatinine 1.89. P atient states that in general he does not feel well. Anemia workup added. REVIEW OF SYSTEMS: Constitutional: No documented fever, no chills, no night sweats. No weight change. No weakness, fatigue or lethargy. No daytime sleepiness. HEENT: No headache. No blurred vision or double vision, no loss of vision. No loss of Hearing, no ringing in the ears, no dizziness. No nasal drainage or congestion. No epistaxis. No sore throat. Lungs: positive for shortness of breathimproving, occasional cough, minimal sputum production. No wheezing. Reports dyspnea with activity. Cardiovascular: Denies chest pain, positive for lower extremity edema. No palpitations. No paroxysmal nocturnal dyspnea. No orthopnea. No lightheadedness or dizziness. No syncopal episodes. Abdominal: Denies abdominal pain. No nausea, vomiting. No diarrhea. No constipation. No bloody or tarry stools reports loss of appetite. Genitourinary: No dysuria, increased frequency, urgency. No urinary retention. Musculoskeletal: No myalgias. positive for muscle weakness, positive for gait dysfunction, positive for frequent falls. positive for back pain. No neck pain, bilateral hip pain Integumentary: No wounds, no lesions. No rash or pruritus. No unusual bruising. No change in hair or nails. Neurologic: No aphasia. No facial droop. No change in mentation. No head injury. No headache. No paralysis. No paresthesia. Psychiatric: No depression. No anxiety. No mood swings. Endocrine: No abnormal blood sugars. No weight change. PHYSICAL EXAMINATION: General: 72-year-old male lying down in bed in no respiratory distress HEENT: Head is atraumatic, normocephalic, pupils were equal round reactive to light and recommendation, extraocular muscle movement were intact, sclera nonicteric, conjunctivae were pale, mucous membranes of the mouth are somewhat dry. Neck: Supple, no JVP, normal carotid upstroke bilaterally, no lymphadenopathy. Chest: Decreased breath sounds at the bases, few rhonchi, no expiratory wheezes, no chest wall tenderness, no intercostal retractions. Heart: First heart sound is normal, second heart sound is normal, there is systolic ejection murmur 2/6 located in the left sternal border. Abdomen: Soft, nontender, nondistended, positive bowel sounds, obese. Extremities: There is +1 edema no calf tenderness DP +2 bilaterally, there is bilateral scabbed lesions in both shins free Neurologic examination: Patient is awake alert and oriented X 3, cranial nerves II-12 appear grossly intact, muscle power were 5 out of 5 in upper extremities and 3/5 in bilateral lower extremities ASSESSMENT AND PLAN: 1. Acute hypoxemic respiratory failure due to acute on chronic diastolic heart failure and COPD wit RAMYA and OHS . patient is on Lasix 80 mg oral daily, monitor input and output and daily weight, continue spironolactone 25 mg orally once every day, continue patient on Farxiga 10 mg orally once every day, metoprolol 37.5 mg orally twice every day, metolazone 5 mg daily cardiology consultation appreciated. 2. COPD/moderate persistent asthma and not in exacerbation with chronic hypoxemic respiratory failure continue oxygen support continue DuoNeb 3 mg nebulization 4 times every day. 3. Paroxysmal atrial fibrillation/ Flutter. Continue patient on metoprolol 37.5 mg orally twice every day, on Xarelto 15 mg orally once every day 4. Hypertension and hypertensive cardiovascular disease. Continue patient on metoprolol 25 mg orally twice every day, monitor the patient blood pressure very closely. 5. Hyperlipidemia. Continue patient on atorvastatin 20 mg orally once every day, monitor lipid panel, keep LDL 55-70. 6. Enlarged prostate. Continue patient on tamsulosin 0.4 mg orally once every day. 7. Anxiety disorder. Continue patient on sertraline 100 mg orally once every day. 8. Neuropathy. Continue patient on gabapentin 300 mg at bedtime. 9. Thrombocytopenia. Continue to monitor 10. Acute kidney injury. Lasix has been decreased to 80 mg oral daily. Continue to monitor renal function, avoid nephrotoxic agents. 11. Depression. we will continue with Sertraline 100 mg po daily 12. DVT prophylaxis. Continue Xarelto 15 mg po daily 13. GI prophylaxis. Continue patient on Protonix 40 mg orally once every day. 13. PT evaluation and composite layup worker consult. Discharge planning to return to [facility]. 15. DNR Impression and plan of care have been directed as dictated by the signing physician. Concepción Perkins nurse practitioner acting as scribe for signing physician. Objective - Vital Signs Vital signs: Vital Signs Temp 97.6 F 08/27/23 09:50 Pulse 70 08/27/23 13:09 Resp 22 08/27/23 11:30 BP 94/52 08/27/23 11:30 Pulse Ox 98 08/27/23 11:30 FiO2 30 08/27/23 04:00 Intake & Output 08/26/23 08/27/23 08/27/23 18:59 06:59 18:59 Intake Total 460 200 Output Total 1520 750 Balance -1060 -750 200 Weight 107 kg Intake: Oral 460 200 Output: Urine 1520 750 Other: Voiding Method Indwelling Catheter Indwelling Catheter Indwelling Catheter - Labs CBC & Chem 7: 08/27/23 10:35 08/27/23 10:35 Labs: Abnormal Lab Results - Last 24 Hours (Table) 08/27/23 08/27/23 Range/Units 10:35 10:35 WBC 13.3 H (3.8-10.6) k/uL RBC 3.05 L (4.30-5.90) m/uL Hgb 8.4 L (13.0-17.5) gm/dL Hct 26.9 L (39.0-53.0) % RDW 18.4 H (11.5-15.5) % Plt Count 87 L (150-450) k/uL Sodium 134 L (137-145) mmol/L Chloride 95 L (98-107) mmol/L Carbon Dioxide 33 H (22-30) mmol/L BUN 61 H (9-20) mg/dL Creatinine 1.89 H (0.66-1.25) mg/dL Glucose 135 H (74-99) mg/dL Calcium 8.1 L (8.4-10.2) mg/dL Alkaline Phosphatase 199 H (38-126) U/L Total Protein 6.0 L (6.3-8.2) g/dL Albumin 3.0 L (3.5-5.0) g/dL Microbiology - Last 24 Hours (Table) 08/23/23 09:15 Blood Culture - Preliminary Blood 08/23/23 08:33 Blood Culture - Preliminary Blood
[2023-08-27 15:36] LABS: Reticulocyte % 3.1 % (0.5-2.0)
[2023-08-27] MEDS: RIVAROXABAN 15 MG TAB PO SCH (17:03)
[2023-08-27] MEDS: MELATONIN 5 MG TABLET PO PRN (21:43)
[2023-08-27] MEDS: GABAPENTIN 300 MG CAP PO SCH (21:44)
[2023-08-27] MEDS: SERTRALINE 100 MG TAB PO SCH (21:44)
[2023-08-27] MEDS: MONTELUKAST 10 MG TAB PO SCH (21:44)
[2023-08-27] MEDS: ATORVASTATIN 20 MG TAB PO SCH (21:44)
[2023-08-27 22:23] LABS: % Iron Saturation 3.98 (15.00-50.00)
[2023-08-27 23:21] LABS: Albumin 3.2 d/dL (3.8-4.9); Protein, Total 5.7 d/dL (6.2-8.2)
[2023-08-28] MEDS ORDERED: VANCOMYCIN 1,000 MG in SODIUM CHLORIDE 0.9% 250 ML IVPB STA (00:49)
[2023-08-28] MEDS ORDERED: VANCOMYCIN IV PER PHARMACY 1 EACH MISC MISCELLANE PRN ×2 (00:51→08:36)
[2023-08-28] MEDS ORDERED: VANCOMYCIN 2,000 MG in SODIUM CHLORIDE 0.9% 500 ML 500 ML IVPB ONE (02:00)
[2023-08-28] MEDS: PANTOPRAZOLE 40 MG TABLET PO SCH (06:23)
[2023-08-28 07:20] LABS: Anisocytosis Slight; HCT 26.1 % (39.0-53.0); HGB 8.1 gm/dL (13.0-17.5); Hypochromasia Marked; MCH 27.3 pg (25.0-35.0); MCHC 31.1 g/dL (31.0-37.0); Mean Platelet Volume 7.8; RBC 2.96 m/uL (4.30-5.90); RDW 18.5 % (11.5-15.5); WBC 10.1 k/uL (3.8-10.6)
[2023-08-28 07:24] LABS: Platelet Count 81 k/uL (150-450)
[2023-08-28 07:39] LABS: ALT 25 U/L (4-49); AST 34 U/L (17-59); African American GFR (CKD) 39 (>60 ml/min/1.73 sqM); Albumin 2.8 g/dL (3.5-5.0); Alkaline Phosphatase 215 U/L (38-126); Anion Gap 9 mmol/L; Blood Urea Nitrogen 63 mg/dL (9-20); Carbon Dioxide 30 mmol/L (22-30); Chloride 93 mmol/L (98-107); Glucose 106 mg/dL (74-99); Non-African American GFR(CKD) 34 (>60 ml/min/1.73 sqM); Potassium 3.2 mmol/L (3.5-5.1); Sodium 132 mmol/L (137-145); Total Protein 5.8 g/dL (6.3-8.2)
[2023-08-28] MEDS: BUDESONIDE 1 MG/2 ML NEBU INHALATION SCH ×2 (08:47→20:52)
[2023-08-28] MEDS: IPRATROPIUM-ALBUTEROL 3 ML NEB INHALATION SCH ×4 (08:47→20:52)
[2023-08-28] MEDS: NYSTATIN 100,000 UNIT/GM POWD 15 GM TOPICAL SCH ×2 (09:25→20:24)
[2023-08-28] MEDS: NYSTATIN 100,000 UNIT/ML SUSP 500,000 UNIT/5 ML CUP PO SCH ×3 (09:25→20:23)
[2023-08-28] MEDS: TAMSULOSIN 0.4 MG CAP.ER.24H PO SCH (09:26)
[2023-08-28] MEDS: DAPAGLIFLOZIN PROPANEDIOL 10 MG TABLET PO SCH (09:26)
[2023-08-28] MEDS: BENZONATATE 100 MG CAP PO PRN ×2 (09:26→16:57)
[2023-08-28] MEDS: MAGNESIUM OXIDE 400 MG TAB PO SCH (09:26)
[2023-08-28] MEDS: SPIRONOLACTONE 25 MG TAB PO SCH (09:26)
[2023-08-28] MEDS: METOPROLOL TARTRATE 12.5 MG TAB PO SCH ×2 (09:26→20:23)
[2023-08-28] MEDS: allopurinoL 100 MG TAB PO SCH (09:27)
[2023-08-28] MEDS: ACETAMINOPHEN TAB 500 MG TAB PO PRN (09:27)
[2023-08-28] MEDS: CHOLECALCIFEROL 25 MCG (1000 IU) TABLET PO SCH (09:27)
[2023-08-28] MEDS: FUROSEMIDE 80 MG TAB PO SCH (09:27)
--- NOTE | 2023-08-28 11:21 | P.CONS ---
History of Present Illness - Reason for Consult Consult date: 08/28/23 wound care - History of Present Illness This is a 73-year-old patient with past medical history significant for hyperlipidemia, hypertension, sleep apnea, venous insufficiency. Patient is being seen on [facility] for nonhealing ulceration to bilateral lower extremities. Patient has a open ulceration to the left patel with fat layer exposure measuring approximately 1.3 x 1 x 0.1 cm Slough and minimal granulation noted to the wound bed no tunneling or undermining noted. The periwound does show erythema and irritation. The right lower extremity open ulcerations Limited to skin breakdown measuring approximately 1X1 x 0.1 cm minimal slough and granulation noted the periwound does show erythema. Review Of Systems: Constitutional: No fever, no chills, no night sweats. No weight change. No weakness, fatigue or lethargy. No daytime sleepiness. Integumentary:reports wounds, no lesions. No rash or pruritus. No unusual bruising. No change in hair or nails. Physical exam: General Appearance: Alert, cooperative, no distress, appears stated age. Skin: See HPI all other Skin color, texture, tugor normal, no rashes or lesions. Neurologic: Alert oriented x3 Assessment: 1. Nonhealing ulceration with fatty layer exposure left calf 2. Nonhealing ulceration Limited to skin breakdown other part of right lower extremity 3. Chronic venous insufficiency with ulceration Plan: 1. Left lower extremity apply honey gel, border foam wrap with Toribio wrap to control swelling. Right lower extremity apply triad and rolled gauze and wrap with Toribio wrap. Elevate legs for 30 minutes at least 3 times a day. Thank you for the consultation any questions please contact the wound care center DNP note has been reviewed and discussed with Dr. Parkinson and the impression and plan of care has been directed as dictated. Past Medical History Past Medical History: Asthma, Chest Pain / Angina, GERD/Reflux, Hyperlipidemia, Hypertension, Osteoarthritis (OA), Pneumonia, Sleep Apnea/CPAP/BIPAP Additional Past Medical History / Comment(s): uses oxygen at night 2L, gout, in wheelchair or walker due to pain in left leg, poor circulation in legs History of Any Multi-Drug Resistant Organisms: None Reported Past Surgical History: Orthopedic Surgery, Tonsillectomy Additional Past Surgical History / Comment(s): LEFT WRIST ORIF, LEFT KNEE REPLACEMENT, bilateral cataract surgery Past Anesthesia/Blood Transfusion Reactions: No Reported Reaction Additional Past Anesthesia/Blood Transfusion Reaction / Comm: . Past Psychological History: Depression Additional Psychological History / Comment(s): Patient states he has slight confusion / memory loss. Smoking Status: Former smoker Past Alcohol Use History: None Reported Past Drug Use History: None Reported - Past Family History Mother Family Medical History: Congestive Heart Failure (CHF), Osteoarthritis (OA) Father Additional Family Medical History / Comment(s): FROM [place] Brother(s) Family Medical History: Cancer Additional Family Medical History / Comment(s): . Sister(s) Family Medical History: Deep Vein Thrombosis (DVT) Medications and Allergies Home Medications Medication Instructions Recorded Confirmed Type Sertraline [Zoloft] 100 mg PO HS 04/04/17 08/23/23 History Atorvastatin [Lipitor] 20 mg PO HS 07/14/19 08/23/23 History Tamsulosin [Flomax] 0.4 mg PO DAILY 07/14/19 08/23/23 History Ipratropium-Albuterol Nebulize 3 ml INHALATION RT-Q6H 08/19/19 08/23/23 History [Duoneb 0.5 mg-3 mg/3 ml Soln] Acetaminophen Tab [Tylenol] 500 mg PO Q6H PRN 03/26/23 08/23/23 History Cholecalciferol [Vitamin D3 (25 50 mcg PO DAILY 03/26/23 08/23/23 History Mcg = 1000 Iu)] Baclofen [Lioresal] 10 mg PO BID PRN tab 03/31/23 08/23/23 Rx Rivaroxaban [Xarelto] 15 mg PO W/SUPPER #30 tab 06/25/23 08/23/23 Rx Benzonatate [Tessalon Perles] 200 mg PO TID PRN cap 07/17/23 08/23/23 Rx Dapagliflozin Propanediol [Farxiga] 5 mg PO DAILY 08/07/23 08/23/23 History Magnesium Oxide [Mag-Ox] 400 mg PO DAILY 08/07/23 08/23/23 History Montelukast [Singulair] 10 mg PO HS 08/07/23 08/23/23 History Omeprazole [PriLOSEC] 20 mg PO DAILY 08/07/23 08/23/23 History Tirzepatide [Mounjaro] 2.5 mg SQ MO 08/07/23 08/23/23 History Budesonide [Pulmicort] 1 mg INHALATION RT-BID ml 08/11/23 08/23/23 Rx Furosemide [Lasix] 60 mg PO DAILY tab 08/11/23 08/23/23 Rx Gabapentin [Neurontin] 300 mg PO HS #3 cap 08/11/23 08/23/23 Rx Melatonin 10 mg PO HS PRN tab 08/11/23 08/23/23 Rx Spironolactone [Aldactone] 12.5 mg PO DAILY tab 08/11/23 08/23/23 Rx Ammonium Lactate Lotion 1 applic TOPICAL DAILY 08/23/23 08/23/23 History [Lac-Hydrin 12% Lotion] Metoprolol Tartrate [Lopressor] 37.5 mg PO BID 08/23/23 08/23/23 History allopurinoL 200 mg PO DAILY 08/23/23 08/23/23 History predniSONE [Deltasone] See Taper PO DAILY 08/23/23 08/23/23 History Allergies Allergy/AdvReac Type Severity Reaction Status Date / Time No Known Allergies Allergy Verified 08/23/23 10:52 Physical Exam Vitals: Vital Signs Temp Pulse Pulse Pulse Resp BP Pulse Ox 08/28/23 09:15 97.6 F 80 18 91/61 97 08/28/23 08:59 80 08/28/23 08:47 76 08/28/23 04:00 98.0 F 59 L 19 108/68 98 08/28/23 03:57 08/28/23 00:54 08/28/23 00:00 98.0 F 81 19 88/53 97 08/27/23 21:48 94 08/27/23 21:35 08/27/23 21:33 89 08/27/23 20:00 98.0 F 70 19 94/64 100 08/27/23 17:04 105 H 08/27/23 17:00 97.8 F 55 L 16 108/60 99 08/27/23 16:53 101 H 08/27/23 14:00 22 08/27/23 13:20 68 08/27/23 13:09 70 08/27/23 11:30 63 22 94/52 98 FiO2 08/28/23 09:15 08/28/23 08:59 08/28/23 08:47 08/28/23 04:00 08/28/23 03:57 30 08/28/23 00:54 30 08/28/23 00:00 30 08/27/23 21:48 08/27/23 21:35 30 08/27/23 21:33 08/27/23 20:00 30 08/27/23 17:04 08/27/23 17:00 08/27/23 16:53 08/27/23 14:00 08/27/23 13:20 08/27/23 13:09 08/27/23 11:30 Intake and Output 08/27/23 08/28/23 08/28/23 22:59 06:59 14:59 Intake Total 110 110 Output Total 1225 700 Balance -1115 -590 Intake: Oral 110 110 Output: Urine 1225 700 Other: Voiding Method Indwelling Catheter Indwelling Catheter Indwelling Catheter # Bowel Movements 1 Results CBC & Chem 7: 08/28/23 06:52 08/28/23 06:52 Labs: Abnormal Lab Results - Last 24 Hours (Table) 08/27/23 08/27/23 08/27/23 Range/Units 10:35 10:35 15:01 RBC (4.30-5.90) m/uL Hgb (13.0-17.5) gm/dL Hct (39.0-53.0) % RDW (11.5-15.5) % Plt Count (150-450) k/uL Retic Count 3.1 H (0.5-2.0) % Haptoglobin (31.2-198.0) mg/dL Sodium 134 L (137-145) mmol/L Potassium (3.5-5.1) mmol/L Chloride 95 L (98-107) mmol/L Carbon Dioxide 33 H (22-30) mmol/L BUN 61 H (9-20) mg/dL Creatinine 1.89 H (0.66-1.25) mg/dL Glucose 135 H (74-99) mg/dL Calcium 8.1 L (8.4-10.2) mg/dL Iron 15 L (65-175) UG/DL % Saturation 3.98 L (15.00-50.00) Alkaline Phosphatase 199 H (38-126) U/L Total Protein 6.0 L (6.3-8.2) g/dL Total Protein (PEP) (6.2-8.2) d/dL Albumin 3.0 L (3.5-5.0) g/dL Albumin (PEP) (3.8-4.9) d/dL 08/27/23 08/28/23 08/28/23 Range/Units 15:01 06:52 06:52 RBC 2.96 L (4.30-5.90) m/uL Hgb 8.1 L (13.0-17.5) gm/dL Hct 26.1 L (39.0-53.0) % RDW 18.5 H (11.5-15.5) % Plt Count 81 L (150-450) k/uL Retic Count (0.5-2.0) % Haptoglobin 230.0 H (31.2-198.0) mg/dL Sodium 132 L (137-145) mmol/L Potassium 3.2 L (3.5-5.1) mmol/L Chloride 93 L (98-107) mmol/L Carbon Dioxide (22-30) mmol/L BUN 63 H (9-20) mg/dL Creatinine 1.91 H (0.66-1.25) mg/dL Glucose 106 H (74-99) mg/dL Calcium 8.0 L (8.4-10.2) mg/dL Iron (65-175) UG/DL % Saturation (15.00-50.00) Alkaline Phosphatase 215 H (38-126) U/L Total Protein 5.8 L (6.3-8.2) g/dL Total Protein (PEP) 5.7 L (6.2-8.2) d/dL Albumin 2.8 L (3.5-5.0) g/dL Albumin (PEP) 3.2 L (3.8-4.9) d/dL Microbiology - Last 24 Hours (Table) 08/23/23 08:33 Blood Culture Gram Stain - Preliminary Blood Blood Culture - Preliminary Assessment and Plan (1) Non-pressure chronic ulcer of left calf with fat layer exposed Current Visit: Yes Status: Acute Code(s): L97.222 - NON-PRESSURE CHRONIC ULCER OF LEFT CALF W FAT LAYER EXPOSED SNOMED Code(s): 94305164459178986 (2) Non-pressure chronic ulcer of other part of right lower leg limited to breakdown of skin Current Visit: Yes Status: Acute Code(s): L97.811 - NON-PRS CHR ULCER OTH PRT R LOW LEG LIMITED TO BRKDWN SKIN SNOMED Code(s): 03887131884850314 (3) Chronic venous hypertension (idiopathic) with ulcer and inflammation of bilateral lower extremity Current Visit: Yes Status: Acute Code(s): I87.333 - CHRONIC VENOUS HTN W ULCER AND INFLAM OF BILATERAL LOW EXTRM SNOMED Code(s): 663414520882242
[2023-08-28] MEDS: HYDROPHILIC CREAM 180 GM TUBE TOPICAL SCH (11:44)
[2023-08-28 11:57] LABS: Lead, Blood <0.5 ug/dL (<5.0)
[2023-08-28 13:24] LABS: Free Kappa Lt Chain Qnt, Serum 7.93 mg/dL (0.33-1.94); Free Lambda Lt Chain Qnt, Seru 5.67 mg/dL (0.57-2.63)
--- NOTE | 2023-08-28 14:40 | P.PN ---
Subjective History of present illness: This is a 73-year-old male patient of Dr. Lamb with past medical history of severe COPD, hypertension, heart failure, paroxysmal atrial fibrillation. Patient was admitted to the hospital due to symptoms of bleeding from the bilateral lower extremities with leg edema and acute diastolic heart failure developed while he was at [facility] for subacute rehab. Initial chest x-ray revealed acute pulmonary edema patient was started on IV Lasix. Patient is also on BiPAP and breathing easier today. He is on IV Lasix at 80 mg twice daily and Zaroxolyn has been added. EKG is sinus rhythm with nonspecific ST-T wave changes. Echocardiogram reveals EF of 50-55%, limited study. He has a negative fluid balance of 3810. Weights do not appear to be accurate. Repeat blood work reveals worsening renal failure with BUN 49 creatinine 1.51. Hemoglobin is 8.4, platelet count 103. 08/26 Patient is seen today in follow-up. He has had increase in BUN and creatinine at 54 and 1.7. He has been on IV Lasix 80 mg daily. His home dose is 60 mg daily. Blood pressure 121/72, pulse ox 94% on 4 L nasal cannula and heart rate in the 70s. Telemetry is sinus rhythm Repeat blood work reveals WBC 16.4, hemoglobin 8.7 and platelet count 86. Sodium 136, potassium 3.6, BUN 54 creatinine 1.7. A limited echocardiogram reveals EF of 50-55%. 08/27 Patient has been afebrile, heart rate in 60s and 70s, blood pressure 94/52, pulse ox 90% on 4 L nasal cannula. 4 L is patient's baseline. WBC 13.3, hemoglobin 8.4, platelet count 87. Sodium 134, BUN 61 creatinine 1.89. Patient is now maintained on Lasix 80 mg oral daily. He has a slight bump in his renal function with BUN 63 creatinine 1.91 will plan to discontinue Zaroxolyn. His hemoglobin is 8.1. He is in the process of anemia workup. 08/28 Patient states that his cough is gone. He still complains of generalized fatigue weakness and not feeling well in general. Patient has been seen by wound care and started on vancomycin as well. He has had a slight bump in his renal function with BUN 63 creatinine 1.91. Hemoglobin is 8.1 and patient has anemia workup in process. Blood pressure 97/50 and heart rate in the 70s and 80s. Physical examination: Gen: This is a obese 73-year-old male. He is resting in recliner and appears to be fairly comfortable on nasal O2. VS: reviewed HEENT: Head is atraumatic, normocephalic. Pupils equal, round. Sclerae is anicteric. NECK: Supple. No JVD. LUNGS: Diminished bilaterally. No intercostal retractions. HEART: Regular rate and rhythm. No murmur. EXTREMITIES: +pedal edema. Dressing in place to the left lower extremity NEUROLOGICAL: Patient is awake, alert and oriented x3. Assessment: Acute on chronic diastolic heart failure with acute pulmonary edema Paroxysmal atrial fibrillation Morbid obesity Chronic obstructive pulmonary disease exacerbation Chronic anemia Thrombocytopenia Acute kidney injury Cellulitis/wounds of the lower extremities started on vancomycin Plan: Continue Lasix 80 mg oral daily Discontinue Zaroxolyn 5 mg daily Continue other cardiac medications Monitor I&O, daily weights, electrolytes and renal function Further recommendations to follow based upon clinical course Nurse practitioner note has been reviewed, I agree with documented findings and plan of care. Patient was seen and examined. Objective - Vital Signs Vital signs: Vital Signs Temp 97.6 F 08/28/23 09:15 Pulse 80 08/28/23 09:15 Resp 18 08/28/23 09:15 BP 91/61 08/28/23 09:15 Pulse Ox 97 08/28/23 09:15 FiO2 30 08/28/23 03:57 Intake & Output 08/27/23 08/28/23 08/28/23 18:59 06:59 18:59 Intake Total 920 110 Output Total 800 425 Balance 120 -425 110 Intake: Oral 920 110 Output: Urine 800 425 Other: Voiding Method Indwelling Catheter Indwelling Catheter Indwelling Catheter # Bowel Movements 1 - Labs CBC & Chem 7: 08/28/23 06:52 08/28/23 06:52 Labs: Abnormal Lab Results - Last 24 Hours (Table) 08/27/23 08/27/23 08/27/23 Range/Units 10:35 10:35 10:35 WBC 13.3 H (3.8-10.6) k/uL RBC 3.05 L (4.30-5.90) m/uL Hgb 8.4 L (13.0-17.5) gm/dL Hct 26.9 L (39.0-53.0) % RDW 18.4 H (11.5-15.5) % Plt Count 87 L (150-450) k/uL Retic Count 3.1 H (0.5-2.0) % Haptoglobin (31.2-198.0) mg/dL Sodium 134 L (137-145) mmol/L Potassium (3.5-5.1) mmol/L Chloride 95 L (98-107) mmol/L Carbon Dioxide 33 H (22-30) mmol/L BUN 61 H (9-20) mg/dL Creatinine 1.89 H (0.66-1.25) mg/dL Glucose 135 H (74-99) mg/dL Calcium 8.1 L (8.4-10.2) mg/dL Iron (65-175) UG/DL % Saturation (15.00-50.00) Alkaline Phosphatase 199 H (38-126) U/L Total Protein 6.0 L (6.3-8.2) g/dL Total Protein (PEP) (6.2-8.2) d/dL Albumin 3.0 L (3.5-5.0) g/dL Albumin (PEP) (3.8-4.9) d/dL 08/27/23 08/27/23 08/28/23 Range/Units 15:01 15:01 06:52 WBC (3.8-10.6) k/uL RBC 2.96 L (4.30-5.90) m/uL Hgb 8.1 L (13.0-17.5) gm/dL Hct 26.1 L (39.0-53.0) % RDW 18.5 H (11.5-15.5) % Plt Count 81 L (150-450) k/uL Retic Count (0.5-2.0) % Haptoglobin 230.0 H (31.2-198.0) mg/dL Sodium (137-145) mmol/L Potassium (3.5-5.1) mmol/L Chloride (98-107) mmol/L Carbon Dioxide (22-30) mmol/L BUN (9-20) mg/dL Creatinine (0.66-1.25) mg/dL Glucose (74-99) mg/dL Calcium (8.4-10.2) mg/dL Iron 15 L (65-175) UG/DL % Saturation 3.98 L (15.00-50.00) Alkaline Phosphatase (38-126) U/L Total Protein (6.3-8.2) g/dL Total Protein (PEP) 5.7 L (6.2-8.2) d/dL Albumin (3.5-5.0) g/dL Albumin (PEP) 3.2 L (3.8-4.9) d/dL 08/28/23 Range/Units 06:52 WBC (3.8-10.6) k/uL RBC (4.30-5.90) m/uL Hgb (13.0-17.5) gm/dL Hct (39.0-53.0) % RDW (11.5-15.5) % Plt Count (150-450) k/uL Retic Count (0.5-2.0) % Haptoglobin (31.2-198.0) mg/dL Sodium 132 L (137-145) mmol/L Potassium 3.2 L (3.5-5.1) mmol/L Chloride 93 L (98-107) mmol/L Carbon Dioxide (22-30) mmol/L BUN 63 H (9-20) mg/dL Creatinine 1.91 H (0.66-1.25) mg/dL Glucose 106 H (74-99) mg/dL Calcium 8.0 L (8.4-10.2) mg/dL Iron (65-175) UG/DL % Saturation (15.00-50.00) Alkaline Phosphatase 215 H (38-126) U/L Total Protein 5.8 L (6.3-8.2) g/dL Total Protein (PEP) (6.2-8.2) d/dL Albumin 2.8 L (3.5-5.0) g/dL Albumin (PEP) (3.8-4.9) d/dL Microbiology - Last 24 Hours (Table) 08/23/23 08:33 Blood Culture Gram Stain - Preliminary Blood Blood Culture - Preliminary
[2023-08-28] MEDS: RIVAROXABAN 15 MG TAB PO SCH (16:57)
[2023-08-28 17:44] LABS: Gamma Globulin 0.96 d/dL (0.70-1.50)
[2023-08-28] MEDS: GABAPENTIN 300 MG CAP PO SCH (20:23)
[2023-08-28] MEDS: SERTRALINE 100 MG TAB PO SCH (20:23)
[2023-08-28] MEDS: ATORVASTATIN 20 MG TAB PO SCH (20:23)
[2023-08-28] MEDS: MONTELUKAST 10 MG TAB PO SCH (20:23)
[2023-08-28] MEDS: MELATONIN 5 MG TABLET PO PRN (20:23)
--- NOTE | 2023-08-28 22:20 | P.CONS ---
History of Present Illness - Reason for Consult Consult date: 08/28/23 Positive blood culture Requesting physician: Alison Leon - Chief Complaint shortnesss of breath x few days - History of Present Illness Patient is a 73-year-old male with a past medical history significant for hypertension hyperlipidemia sleep apnea reflux and asthma presenting to the hospital about 5 days ago from the local [facility] with shortness of breath and hypoxemia patient was noted to be oxygenating in the 70s BiPAP was placed and the patient was brought into the hospital since admission to the hospital patient has been afebrile patient did have a mild elevated white count that has subsequent normalized creatinine was normal however slightly trending up liver enzymes are normal patient did have a chest x-ray findings suggest CHF exacerbation on the background of chronic parenchymal changes patient did have a blood culture drawn on 923 coming back positive with gram-positive cocci that has prompted this infectious disease consultation and the patient has been started on vancomycin, patient currently denies having any headache or URI symp toms but denies having any chest pain did have some shortness of breath he did have a cough mild to moderate intensity but not bringing up any sputum no nausea vomiting no abdominal pain the patient has significant swelling to bilateral extremity especially the left lower extremity which has some superficial ulceration warmth but no foul-smelling drainage Review of Systems Positive point and negatives has been mentioned in the HPI, complete review of systems was performed and all other systems are negative Past Medical History Past Medical History: Asthma, Chest Pain / Angina, GERD/Reflux, Hyperlipidemia, Hypertension, Osteoarthritis (OA), Pneumonia, Sleep Apnea/CPAP/BIPAP Additional Past Medical History / Comment(s): uses oxygen at night 2L, gout, in wheelchair or walker due to pain in left leg, poor circulation in legs History of Any Multi-Drug Resistant Organisms: None Reported Past Surgical History: Orthopedic Surgery, Tonsillectomy Additional Past Surgical History / Comment(s): LEFT WRIST ORIF, LEFT KNEE REPLA CEMENT, bilateral cataract surgery Past Anesthesia/Blood Transfusion Reactions: No Reported Reaction Additional Past Anesthesia/Blood Transfusion Reaction / Comm: . Past Psychological History: Depression Additional Psychological History / Comment(s): Patient states he has slight confusion / memory loss. Smoking Status: Former smoker Past Alcohol Use History: None Reported Past Drug Use History: None Reported - Past Family History Mother Family Medical History: Congestive Heart Failure (CHF), Osteoarthritis (OA) Father Additional Family Medical History / Comment(s): FROM [place] Brother(s) Family Medical History: Cancer Additional Family Medical History / Comment(s): . Sister(s) Family Medical History: Deep Vein Thrombosis (DVT) Medications and Allergies Home Medications Medication Instructions Recorded Confirmed Type Sertraline [Zoloft] 100 mg PO HS 04/04/17 08/23/23 History Atorvastatin [Lipitor] 20 mg PO HS 07/14/19 08/23/23 History Tamsulosin [Flomax] 0.4 mg PO DAILY 07/14/19 08/23/23 History Ipratropium-Albuterol Nebulize 3 ml INHALATION RT-Q6H 08/19/19 08/23/23 History [Duoneb 0.5 mg-3 mg/3 ml Soln] Acetaminophen Tab [Tylenol] 500 mg PO Q6H PRN 03/26/23 08/23/23 History Cholecalciferol [Vitamin D3 (25 50 mcg PO DAILY 03/26/23 08/23/23 History Mcg = 1000 Iu)] Baclofen [Lioresal] 10 mg PO BID PRN tab 03/31/23 08/23/23 Rx Rivaroxaban [Xarelto] 15 mg PO W/SUPPER #30 tab 06/25/23 08/23/23 Rx Benzonatate [Tessalon Perles] 200 mg PO TID PRN cap 07/17/23 08/23/23 Rx Dapagliflozin Propanediol [Farxiga] 5 mg PO DAILY 08/07/23 08/23/23 History Magnesium Oxide [Mag-Ox] 400 mg PO DAILY 08/07/23 08/23/23 History Montelukast [Singulair] 10 mg PO HS 08/07/23 08/23/23 History Omeprazole [PriLOSEC] 20 mg PO DAILY 08/07/23 08/23/23 History Tirzepatide [Mounjaro] 2.5 mg SQ MO 08/07/23 08/23/23 History Budesonide [Pulmicort] 1 mg INHALATION RT-BID ml 08/11/23 08/23/23 Rx Furosemide [Lasix] 60 mg PO DAILY tab 08/11/23 08/23/23 Rx Gabapentin [Neurontin] 300 mg PO HS #3 cap 08/11/23 08/23/23 Rx Melatonin 10 mg PO HS PRN tab 08/11/23 08/23/23 Rx Spironolactone [Aldactone] 12.5 mg PO DAILY tab 08/11/23 08/23/23 Rx Ammonium Lactate Lotion 1 applic TOPICAL DAILY 08/23/23 08/23/23 History [Lac-Hydrin 12% Lotion] Metoprolol Tartrate [Lopressor] 37.5 mg PO BID 08/23/23 08/23/23 History allopurinoL 200 mg PO DAILY 08/23/23 08/23/23 History predniSONE [Deltasone] See Taper PO DAILY 08/23/23 08/23/23 History Allergies Allergy/AdvReac Type Severity Reaction Status Date / Time No Known Allergies Allergy Verified 08/23/23 10:52 Physical Exam Vitals: Vital Signs Temp Pulse Pulse Pulse Resp BP Pulse Ox 08/28/23 09:15 97.6 F 80 18 91/61 97 08/28/23 08:59 80 08/28/23 08:47 76 08/28/23 04:00 98.0 F 59 L 19 108/68 98 08/28/23 03:57 08/28/23 00:54 08/28/23 00:00 98.0 F 81 19 88/53 97 08/27/23 21:48 94 08/27/23 21:35 08/27/23 21:33 89 08/27/23 20:00 98.0 F 70 19 94/64 100 08/27/23 17:04 105 H 08/27/23 17:00 97.8 F 55 L 16 108/60 99 08/27/23 16:53 101 H 08/27/23 14:00 22 08/27/23 13:20 68 08/27/23 13:09 70 08/27/23 11:30 63 22 94/52 98 FiO2 08/28/23 09:15 08/28/23 08:59 08/28/23 08:47 08/28/23 04:00 08/28/23 03:57 30 08/28/23 00:54 30 08/28/23 00:00 30 08/27/23 21:48 08/27/23 21:35 30 08/27/23 21:33 08/27/23 20:00 30 08/27/23 17:04 08/27/23 17:00 08/27/23 16:53 08/27/23 14:00 08/27/23 13:20 08/27/23 13:09 08/27/23 11:30 Intake and Output 08/27/23 08/28/23 08/28/23 22:59 06:59 14:59 Intake Total 110 110 Output Total 1225 700 Balance -1115 -590 Intake: Oral 110 110 Output: Urine 1225 700 Other: Voiding Method Indwelling Catheter Indwelling Catheter Indwelling Catheter # Bowel Movements 1 GENERAL DESCRIPTION: Elderly male lying in bed, no distress. No tachypnea or accessory muscle of respiration use. HEENT: Shows Pallor , no scleral icterus. Oral mucous membrane is dry. NECK: Trachea central, no thyromegaly. LUNGS: Unlabored breathing. Decreased breath sound on the base HEART: S1, S2, regular rate and rhythm. No loud murmur ABDOMEN: Soft, no tenderness , EXTREMITIES: Diffuse swelling to bilateral lower extremity the patient did have a superficial ulceration to the left leg with no slough tissue minimal surrounding redness and warmth to touch SKIN: No rash, no masses palpable. NEUROLOGICAL: The patient is awake, alert, oriented x3, mood and affect normal. Results CBC & Chem 7: 08/28/23 06:52 08/28/23 06:52 Labs: Abnormal Lab Results - Last 24 Hours (Table) 08/27/23 08/27/23 08/27/23 Range/Units 10:35 10:35 15:01 RBC (4.30-5.90) m/uL Hgb (13.0-17.5) gm/dL Hct (39.0-53.0) % RDW (11.5-15.5) % Plt Count (150-450) k/uL Retic Count 3.1 H (0.5-2.0) % Haptoglobin (31.2-198.0) mg/dL Sodium 134 L (137-145) mmol/L Potassium (3.5-5.1) mmol/L Chloride 95 L (98-107) mmol/L Carbon Dioxide 33 H (22-30) mmol/L BUN 61 H (9-20) mg/dL Creatinine 1.89 H (0.66-1.25) mg/dL Glucose 135 H (74-99) mg/dL Calcium 8.1 L (8.4-10.2) mg/dL Iron 15 L (65-175) UG/DL % Saturation 3.98 L (15.00-50.00) Alkaline Phosphatase 199 H (38-126) U/L Total Protein 6.0 L (6.3-8.2) g/dL Total Protein (PEP) (6.2-8.2) d/dL Albumin 3.0 L (3.5-5.0) g/dL Albumin (PEP) (3.8-4.9) d/dL 08/27/23 08/28/23 08/28/23 Range/Units 15:01 06:52 06:52 RBC 2.96 L (4.30-5.90) m/uL Hgb 8.1 L (13.0-17.5) gm/dL Hct 26.1 L (39.0-53.0) % RDW 18.5 H (11.5-15.5) % Plt Count 81 L (150-450) k/uL Retic Count (0.5-2.0) % Haptoglobin 230.0 H (31.2-198.0) mg/dL Sodium 132 L (137-145) mmol/L Potassium 3.2 L (3.5-5.1) mmol/L Chloride 93 L (98-107) mmol/L Carbon Dioxide (22-30) mmol/L BUN 63 H (9-20) mg/dL Creatinine 1.91 H (0.66-1.25) mg/dL Glucose 106 H (74-99) mg/dL Calcium 8.0 L (8.4-10.2) mg/dL Iron (65-175) UG/DL % Saturation (15.00-50.00) Alkaline Phosphatase 215 H (38-126) U/L Total Protein 5.8 L (6.3-8.2) g/dL Total Protein (PEP) 5.7 L (6.2-8.2) d/dL Albumin 2.8 L (3.5-5.0) g/dL Albumin (PEP) 3.2 L (3.8-4.9) d/dL Microbiology - Last 24 Hours (Table) 08/23/23 08:33 Blood Culture Gram Stain - Preliminary Blood Blood Culture - Preliminary Assessment and Plan (1) Left leg cellulitis Current Visit: Yes Status: Acute Code(s): L03.116 - CELLULITIS OF LEFT LOWER LIMB SNOMED Code(s): 132224464 (2) Bacteremia Current Visit: Yes Status: Acute Code(s): R78.81 - BACTEREMIA SNOMED Code(s): 3910703 (3) Chronic venous hypertension (idiopathic) with ulcer and inflammation of bilateral lower extremity Current Visit: Yes Status: Acute Code(s): I87.333 - CHRONIC VENOUS HTN W ULCER AND INFLAM OF BILATERAL LOW EXTRM SNOMED Code(s): 709880761272208 Plan: 1patient with gram-positive bacteremia in this patient has been the hospital for about 5 days with initial presentation with increasing shortness of breath and hypoxemia has been diagnosed with a CHF exacerbation with a question of possible skin contamination versus related to the left lower extremity celluliti s as the patient to have evidence of left lower extremity swelling redness some superficial ulceration likely from ruptured blister mild warmth and redness to touch. 2blood cultures repeated document clearance of bacteremia. 3local wound care to the left extremity with a dry Aquacel dressing and Toribio wrap change every 48 hours discussed with the RN. 4vancomycin pharmacy to dose with a target trough of 15 while watching kidney function and Vanco trough closely. We will follow on clinical condition and cultures to further adjust medication if needed Thank you for this consultation we will follow the patient along with you Dictation was produced using [employer] dictation software. please excuse any grammatical, word or spelling errors. Time with Patient: Greater than 30
[2023-08-29] MEDS ORDERED: VANCOMYCIN 2,000 MG in SODIUM CHLORIDE 0.9% 500 ML 500 ML IVPB SCH (04:00)
[2023-08-29] MEDS ORDERED: VANCOMYCIN 1,750 MG in SODIUM CHLORIDE 0.9% 500 ML 500 ML IVPB ONE (04:00)
[2023-08-29] MEDS: PANTOPRAZOLE 40 MG TABLET PO SCH (06:07)
--- NOTE | 2023-08-29 07:18 | P.PN ---
Subjective Progress Note Date: 08/28/23 HISTORY OF PRESENT ILLNESS: This is a 73-year-old male with a previous medical history significant for hypertension and hypertensive cardiovascular disease, hyperlipidemia, obesity with obstructive sleep apnea and obesity hypoventilation syndrome, chronic diastolic heart failure, asthma, hypothyroidism, anxiety and depressive disorder, peripheral neuropathy, patient was recently discharged from [facility] after he was admitted to the hospital for acute diastolic heart failure and pulmonary edema, and he was discharged back to [facility] on the , patient was doing fine and he was seen on Friday he was doing fine suddenly developed to have a significant weeping from both lower extremities despite taken spironolactone as well as Lasix and Farxiga, patient has been on oxygen at 4 L Cannula, patient weight has been increased, with increased weeping from both lower extremities, the nursing staff came to see the patient in the morning and he was unresponsive with oxygen saturation in the low 80s, 911 was called and the patient was. On the high flow oxygen he went up to 88%, patient was transported to the emergency department at [facility], had a chest x- ray that showed bulbar edema, he was placed on a BiPAP, with Lasix 40 mg IV push, he felt much better he is sitting down in bed, he continues to be somewhat short of breath, he continues to have significant swelling in both lower extremities with minimal denuded blister in the left lower extremity, he does appear to have a chronic stasis edema, patient appears to be more awake and alert at the time of evaluation in the ER. Patient will be admitted to the hospital for acute diastolic heart failure with The BiPAP, Would Be Started on Lasix 80 Mg IV Push Every 12 Hours. 08/24: Patient is feeling better today, he continues to be on 4 L nasal cannula, he denies any chest pain, isosorbide, uses the BiPAP on and off, he is diuresing with Lasix 80 mg IV push every 12 hours, he is continued for sick at 10 mg every day, spironolactone 25 mg once every day, monitor the patient input and output and daily weight, follow the patient very closely. Cardiology is to see the patient as he is complaining of chest pin suggestive of CAD 08/25: Patient continues to have slow improvement of his breathing status. Patient is on BiPAP during the night with pulse ox of 94%, currently on 4 L nasal cannula with pulse ox of 97%. Heart rate is mostly in the 50s and 60s, blood pressure 104/56. Repeat blood work reveals WBC 10.1, hemoglobin 8.4, platelet count 103. Sodium 138, potassium 3.9, BUN 49 creatinine 1.51. CO2 is 31. Limited echocardiogram reveals EF of 50-55%. Patient has a negative fluid balance. Weights do not appear to be accurate. Cardiology has decreased frequency of IV Lasix 80 mg 2 once daily and continued Zaroxolyn for today. 08/26: Patient has been seen by cardiology and IV Lasix has been transitioned to oral at 80 mg daily and continued on Zaroxolyn 5 mg daily. He has had increase in his BUN to 54 and creatinine 1.7. His breathing status seems to be stable. He is using BiPAP when sleeping at nighttime and on nasal cannula during the day at 4 L. His heart rate is running in the 70s, blood pressure 121/72. Other blood work reveals hemoglobin is stable at 8.7, WBC 16.4 platelet count 86. 08/27: Patient has been seen by cardiology today with recommendations to continue oral Lasix at 80 mg daily and metolazone 5 mg daily. Blood pressures been on the soft side 94/52, heart rate in the 60s and 70s. He has been afebrile, pulse ox 90% on 4 L nasal cannula. Repeat blood work reveals WBC 13.3, hemoglobin 8.4, platelet count 87. Sodium 134, BUN 61 creatinine 1.89. P atient states that in general he does not feel well. Anemia workup added. 08/28: Consults were added yesterday afternoon for [facility]ound Center and infectious disease. Patient has been started on IV vancomycin. He has had a slight bump in his renal function with BUN 63 creatinine 1.91. Cardiology has discontinued Zaroxolyn. Hemoglobin is 8.1 and anemia workup was ordered yesterday. Patient's blood pressures been 97/50 heart rate in the 70s and 80s. Patient is utilizing BiPAP when sleeping or at nighttime. During the day he is on 4 L nasal cannula with pulse ox 97%. Patient continues to complain of generalized fatigue and weakness and not feeling well in general. Cough is improved. REVIEW OF SYSTEMS: Constitutional: No documented fever, no chills, no night sweats. No weight change. No weakness, fatigue or lethargy. No daytime sleepiness. HEENT: No headache. No blurred vision or double vision, no loss of vision. Chronic loss of Hearing, no ringing in the ears, no dizziness. No nasal drainage or congestion. No epistaxis. No sore throat. Lungs: positive for shortness of breathimproving, occasional cough, minimal sputum production. No wheezing. Reports dyspnea with activity. Cardiovascular: Denies chest pain, positive for lower extremity edema. No palpitations. No paroxysmal nocturnal dyspnea. No orthopnea. No lightheadedness or dizziness. No syncopal episodes. Abdominal: Denies abdominal pain. No nausea, vomiting. No diarrhea. No constipation. No bloody or tarry stools reports loss of appetite. Genitourinary: No dysuria, increased frequency, urgency. No urinary retention. Musculoskeletal: No myalgias. positive for muscle weakness, positive for gait dysfunction, positive for frequent falls. positive for back pain. No neck pain, bilateral hip pain Integumentary: No wounds, no lesions. No rash or pruritus. No unusual bruising. No change in hair or nails. Neurologic: No aphasia. No facial droop. Mild chronic change in mentation. No head injury. No headache. No paralysis. No paresthesia. Psychiatric: No depression. No anxiety. No mood swings. Endocrine: No abnormal blood sugars. No weight change. PHYSICAL EXAMINATION: General: 72-year-old male lying down in a recliner in no respiratory distress HEENT: Head is atraumatic, normocephalic, pupils were equal round reactive to light and recommendation, extraocular muscle movement were intact, sclera nonicteric, conjunctivae were pale, mucous membranes of the mouth are somewhat dry. Neck: Supple, no JVP, normal carotid upstroke bilaterally, no lymphadenopathy. Chest: Decreased breath sounds at the bases, few rhonchi, no expiratory wheezes, no chest wall tenderness, no intercostal retractions. Heart: First heart sound is normal, second heart sound is normal, there is systolic ejection murmur 2/6 located in the left sternal border. Abdomen: Soft, nontender, nondistended, positive bowel sounds, obese. Extremities: There is +1 edema no calf tenderness DP +2 bilaterally, there is bilateral scabbed lesions in both shins free Neurologic examination: Patient is awake alert and oriented X 3, cranial nerves II-12 appear grossly intact, muscle power were 5 out of 5 in upper extremities and 3/5 in bilateral lower extremities ASSESSMENT AND PLAN: 1. Acute hypoxemic respiratory failure due to acute on chronic diastolic heart failure and COPD wit RAMYA and OHS . patient is on Lasix 80 mg oral daily, monitor input and output and daily weight, continue spironolactone 25 mg orally once every day, continue patient on Farxiga 10 mg orally once every day, metoprolol 37.5 mg orally twice every day, metolazone discontinued cardiology consultation appreciated. 2. COPD/moderate persistent asthma and not in exacerbation with chronic hypoxemic respiratory failure continue oxygen support continue DuoNeb 3 mg nebulization 4 times every day. 3. Paroxysmal atrial fibrillation/ Flutter. Continue patient on metoprolol 37.5 mg orally twice every day, on Xarelto 15 mg orally once every day 4. Hypertension and hypertensive cardiovascular disease. Continue patient on metoprolol 25 mg orally twice every day, monitor the patient blood pressure very closely. 5. Hyperlipidemia. Continue patient on atorvastatin 20 mg orally once every day, monitor lipid panel, keep LDL 55-70. 6. Enlarged prostate. Continue patient on tamsulosin 0.4 mg orally once every day. 7. Anxiety disorder. Continue patient on sertraline 100 mg orally once every day. 8. Neuropathy. Continue patient on gabapentin 300 mg at bedtime. 9. Thrombocytopenia. Continue to monitor 10. Acute kidney injury. Lasix has been decreased to 80 mg oral daily. Continue to monitor renal function, avoid nephrotoxic agents. 11. Depression. we will continue with Sertraline 100 mg po daily 12. Wounds to the bilateral lower extremities/cellulitis. Consult with Wound Center and infectious disease. Patient started on vancomycin. 13. DVT prophylaxis. Continue Xarelto 15 mg po daily 14. GI prophylaxis. Continue patient on Protonix 40 mg orally once every day. 15. PT evaluation and electronics worker consult. Discharge planning to return to [facility]. DNR Impression and plan of care have been directed as dictated by the signing physician. Concepción Perkins nurse practitioner acting as scribe for signing physician. Objective - Vital Signs Vital signs: Vital Signs Temp 97.6 F 08/28/23 09:15 Pulse 76 08/28/23 12:12 Resp 16 08/28/23 11:00 BP 97/50 08/28/23 11:00 Pulse Ox 94 L 08/28/23 11:00 FiO2 30 08/28/23 03:57 Intake & Output 08/27/23 08/28/23 08/28/23 18:59 06:59 18:59 Intake Total 920 420 Output Total 800 425 700 Balance 120 -425 -280 Intake: Oral 920 420 Output: Urine 800 425 700 Other: Voiding Method Indwelling Catheter Indwelling Catheter Indwelling Catheter # Bowel Movements 1 - Labs CBC & Chem 7: 08/28/23 06:52 08/28/23 06:52 Labs: Abnormal Lab Results - Last 24 Hours (Table) 08/27/23 08/27/23 08/27/23 Range/Units 10:35 15:01 15:01 RBC (4.30-5.90) m/uL Hgb (13.0-17.5) gm/dL Hct (39.0-53.0) % RDW (11.5-15.5) % Plt Count (150-450) k/uL Retic Count 3.1 H (0.5-2.0) % Haptoglobin 230.0 H (31.2-198.0) mg/dL Sodium (137-145) mmol/L Potassium (3.5-5.1) mmol/L Chloride (98-107) mmol/L BUN (9-20) mg/dL Creatinine (0.66-1.25) mg/dL Glucose (74-99) mg/dL Calcium (8.4-10.2) mg/dL Iron 15 L (65-175) UG/DL % Saturation 3.98 L (15.00-50.00) Alkaline Phosphatase (38-126) U/L C-Reactive Protein (<1.0) mg/dL Total Protein (6.3-8.2) g/dL Total Protein (PEP) 5.7 L (6.2-8.2) d/dL Albumin (3.5-5.0) g/dL Albumin (PEP) 3.2 L (3.8-4.9) d/dL Free Pennock LC, Quant 7.93 H (0.33-1.94) mg/dL Free Lambda LC, Quant 5.67 H (0.57-2.63) mg/dL 08/28/23 08/28/23 08/28/23 Range/Units 06:52 06:52 11:37 RBC 2.96 L (4.30-5.90) m/uL Hgb 8.1 L (13.0-17.5) gm/dL Hct 26.1 L (39.0-53.0) % RDW 18.5 H (11.5-15.5) % Plt Count 81 L (150-450) k/uL Retic Count (0.5-2.0) % Haptoglobin (31.2-198.0) mg/dL Sodium 132 L (137-145) mmol/L Potassium 3.2 L (3.5-5.1) mmol/L Chloride 93 L (98-107) mmol/L BUN 63 H (9-20) mg/dL Creatinine 1.91 H (0.66-1.25) mg/dL Glucose 106 H (74-99) mg/dL Calcium 8.0 L (8.4-10.2) mg/dL Iron (65-175) UG/DL % Saturation (15.00-50.00) Alkaline Phosphatase 215 H (38-126) U/L C-Reactive Protein 7.0 H (<1.0) mg/dL Total Protein 5.8 L (6.3-8.2) g/dL Total Protein (PEP) (6.2-8.2) d/dL Albumin 2.8 L (3.5-5.0) g/dL Albumin (PEP) (3.8-4.9) d/dL Free Pennock LC, Quant (0.33-1.94) mg/dL Free Lambda LC, Quant (0.57-2.63) mg/dL Microbiology - Last 24 Hours (Table) 08/23/23 08:33 Blood Culture Gram Stain - Preliminary Blood Blood Culture - Preliminary
[2023-08-29] MEDS: BUDESONIDE 1 MG/2 ML NEBU INHALATION SCH ×2 (08:08→20:17)
[2023-08-29] MEDS: IPRATROPIUM-ALBUTEROL 3 ML NEB INHALATION SCH ×4 (08:08→20:17)
[2023-08-29] MEDS: NYSTATIN 100,000 UNIT/GM POWD 15 GM TOPICAL SCH ×2 (09:17→21:54)
[2023-08-29] MEDS: CHOLECALCIFEROL 25 MCG (1000 IU) TABLET PO SCH (09:18)
[2023-08-29] MEDS: FUROSEMIDE 80 MG TAB PO SCH (09:18)
[2023-08-29] MEDS: NYSTATIN 100,000 UNIT/ML SUSP 500,000 UNIT/5 ML CUP PO SCH ×3 (09:18→21:54)
[2023-08-29] MEDS: SPIRONOLACTONE 25 MG TAB PO SCH (09:18)
[2023-08-29] MEDS: MAGNESIUM OXIDE 400 MG TAB PO SCH (09:18)
[2023-08-29] MEDS: TAMSULOSIN 0.4 MG CAP.ER.24H PO SCH (09:18)
[2023-08-29] MEDS: allopurinoL 100 MG TAB PO SCH (09:19)
[2023-08-29] MEDS: ACETAMINOPHEN TAB 500 MG TAB PO PRN ×3 (09:19→20:43)
[2023-08-29] MEDS: METOPROLOL TARTRATE 12.5 MG TAB PO SCH ×3 (09:21→21:56)
[2023-08-29] MEDS: BENZONATATE 100 MG CAP PO PRN (09:21)
[2023-08-29] MEDS: DAPAGLIFLOZIN PROPANEDIOL 10 MG TABLET PO SCH (09:21)
[2023-08-29] MEDS: HYDROPHILIC CREAM 180 GM TUBE TOPICAL SCH (09:24)
[2023-08-29 09:47] LABS: Anisocytosis Slight; HCT 26.3 % (39.0-53.0); HGB 8.1 gm/dL (13.0-17.5); Hypochromasia Marked; MCH 27.1 pg (25.0-35.0); MCHC 30.6 g/dL (31.0-37.0); MCV 88.6 fL (80.0-100.0); Mean Platelet Volume 8.2; RBC 2.97 m/uL (4.30-5.90); RDW 18.3 % (11.5-15.5); WBC 9.2 k/uL (3.8-10.6)
[2023-08-29 10:05] LABS: Platelet Count 91 k/uL (150-450)
[2023-08-29 10:25] LABS: ALT 26 U/L (4-49); AST 31 U/L (17-59); African American GFR (CKD) 36 (>60 ml/min/1.73 sqM); Alkaline Phosphatase 232 U/L (38-126); Anion Gap 9 mmol/L; Blood Urea Nitrogen 67 mg/dL (9-20); Carbon Dioxide 34 mmol/L (22-30); Chloride 90 mmol/L (98-107); Glucose 108 mg/dL (74-99); Non-African American GFR(CKD) 31 (>60 ml/min/1.73 sqM); Potassium 3.3 mmol/L (3.5-5.1); Sodium 133 mmol/L (137-145); Total Bilirubin 0.9 mg/dL (0.2-1.3)
--- NOTE | 2023-08-29 11:47 | P.PN ---
Subjective Progress Note Date: 08/29/23 Principal diagnosis: Bacteremia left leg wound and cellulitis Patient is a 73-year-old male with a past medical history significant for hypertension hyperlipidemia sleep apnea reflux and asthma presenting to the hospital for shortness of breath and hypoxemia requiring BiPAP patient did have blood culture drawn can be positive with gram-positive cocci and also noticed to have ulceration and erythema to the left lower extremity. On today's evaluation that is 08/29/2023, the patient continues to be afebrile, , the patient is on BiPAP denies any worsening cough some left-sided chest pain , patient denies nausea / vomiting and no diarrhea, denies any worsening pain to the left lower extremity Patient did have white count 9.2, creatinine is 2.05, pro calcitonin was 0.33 Objective - Vital Signs Vital signs: Vital Signs Temp 97.4 F L 08/29/23 11:30 Pulse 76 08/29/23 11:38 Resp 20 08/29/23 11:30 BP 96/50 08/29/23 11:30 Pulse Ox 94 L 08/29/23 11:30 FiO2 30 08/29/23 11:30 Intake & Output 08/28/23 08/29/23 08/29/23 18:59 06:59 18:59 Intake Total 660 118 Output Total 1220 800 Balance -560 -800 118 Weight 136.2 kg Intake: Oral 660 118 Output: Urine 1220 800 Other: Voiding Method Indwelling Catheter Indwelling Catheter Indwelling Catheter # Bowel Movements 1 - Exam GENERAL DESCRIPTION: An elderly male lying in bed in no distress RESPIRATORY SYSTEM: Unlabored breathing , decreased breath sounds at bases HEART: S1 S2 regular rate and rhythm , ABDOMEN: Soft , no tenderness EXTREMITIES: Left leg is currently dressed no drainage on the dressing - Labs CBC & Chem 7: 08/29/23 07:28 08/29/23 07:28 Labs: Abnormal Lab Results - Last 24 Hours (Table) 08/27/23 08/27/23 08/28/23 Range/Units 15:01 15:01 11:37 RBC (4.30-5.90) m/uL Hgb (13.0-17.5) gm/dL Hct (39.0-53.0) % MCHC (31.0-37.0) g/dL RDW (11.5-15.5) % Plt Count (150-450) k/uL Sodium (137-145) mmol/L Potassium (3.5-5.1) mmol/L Chloride (98-107) mmol/L Carbon Dioxide (22-30) mmol/L BUN (9-20) mg/dL Creatinine (0.66-1.25) mg/dL Glucose (74-99) mg/dL Calcium (8.4-10.2) mg/dL Alkaline Phosphatase (38-126) U/L C-Reactive Protein 7.0 H (<1.0) mg/dL Total Protein (6.3-8.2) g/dL Albumin (3.5-5.0) g/dL Rkfuo-9-Aibrmyokw 0.50 H (0.10-0.40) d/dL RBC Folate 1,151 H (280 - 791) ng/mL Procalcitonin (0.02-0.09) ng/mL Free [place] LC, Quant 7.93 H (0.33-1.94) mg/dL Free Lambda LC, Quant 5.67 H (0.57-2.63) mg/dL 08/28/23 08/29/23 08/29/23 Range/Units 11:37 07:28 07:28 RBC 2.97 L (4.30-5.90) m/uL Hgb 8.1 L (13.0-17.5) gm/dL Hct 26.3 L (39.0-53.0) % MCHC 30.6 L (31.0-37.0) g/dL RDW 18.3 H (11.5-15.5) % Plt Count 91 L (150-450) k/uL Sodium 133 L (137-145) mmol/L Potassium 3.3 L (3.5-5.1) mmol/L Chloride 90 L (98-107) mmol/L Carbon Dioxide 34 H (22-30) mmol/L BUN 67 H (9-20) mg/dL Creatinine 2.05 H (0.66-1.25) mg/dL Glucose 108 H (74-99) mg/dL Calcium 8.0 L (8.4-10.2) mg/dL Alkaline Phosphatase 232 H (38-126) U/L C-Reactive Protein (<1.0) mg/dL Total Protein 6.0 L (6.3-8.2) g/dL Albumin 3.0 L (3.5-5.0) g/dL Xxqrp-2-Aurmuqpsb (0.10-0.40) d/dL RBC Folate (280 - 791) ng/mL Procalcitonin 0.33 H (0.02-0.09) ng/mL Free [place] LC, Quant (0.33-1.94) mg/dL Free Lambda LC, Quant (0.57-2.63) mg/dL Microbiology - Last 24 Hours (Table) 08/23/23 09:15 Blood Culture - Final Blood Assessment and Plan (1) Left leg cellulitis Current Visit: Yes Status: Acute Code(s): L03.116 - CELLULITIS OF LEFT LOWER LIMB SNOMED Code(s): 843546039 (2) Bacteremia Current Visit: Yes Status: Acute Code(s): R78.81 - BACTEREMIA SNOMED Code(s): 2257804 (3) Chronic venous hypertension (idiopathic) with ulcer and inflammation of bilateral lower extremity Current Visit: Yes Status: Acute Code(s): I87.333 - CHRONIC VENOUS HTN W ULCER AND INFLAM OF BILATERAL LOW EXTRM SNOMED Code(s): 288778159173999 Plan: 1patient with gram-positive bacteremia in this patient has been the hospital for about 5 days with initial presentation with increasing shortness of breath and hypoxemia has been diagnosed with a CHF exacerbation with a question of possible skin contamination versus related to the left lower extremity cellulitis as the patient to have evidence of left lower extremity swelling redness some superficial ulceration likely from ruptured blister mild warmth and redness to touch. 2blood cultures has been repeated to document clearance of bacteremia. 3local wound care to the left extremity with a dry Aquacel dressing and Toribio wrap change every 48 hours discussed with the RN. 4patient to continue with vancomycin pharmacy to dose with a target trough of 15 while watching kidney function and Vanco trough closely, if any worsening creatinine and may consider switching to daptomycin. Dictation was produced using [employer] software. please excuse any grammatical, word or spelling errors.
[2023-08-29] MEDS ORDERED: POTASSIUM CHLORIDE ER 20 MEQ TAB.ER PO STA (12:03)
--- NOTE | 2023-08-29 12:04 | P.PN ---
Subjective Progress Note Date: 08/29/23 History of present illness: This is a 73-year-old male patient of Dr. Lamb with past medical history of severe COPD, hypertension, heart failure, paroxysmal atrial fibrillation. Patient was admitted to the hospital due to symptoms of bleeding from the bilateral lower extremities with leg edema and acute diastolic heart failure developed while he was at [facility]. Initial chest x-ray revealed acute pulmonary edema patient was started on IV Lasix. Patient is also on BiPAP and breathing easier today. He is on IV Lasix at 80 mg twice daily and Zaroxolyn has been added. EKG is sinus rhythm with nonspecific ST-T wave changes. Echocardiogram reveals EF of 50-55%, limited study. He has a negative fluid balance of 3810. Weights do not appear to be accurate. Repeat blood work reveals worsening renal failure with BUN 49 creatinine 1.51. Hemoglobin is 8.4, platelet count 103. 08/26 Patient is seen today in follow-up. He has had increase in BUN and creatinine at 54 and 1.7. He has been on IV Lasix 80 mg daily. His home dose is 60 mg daily. Blood pressure 121/72, pulse ox 94% on 4 L nasal cannula and heart rate in the 70s. Telemetry is sinus rhythm Repeat blood work reveals WBC 16.4, hemoglobin 8.7 and platelet count 86. Sodium 136, potassium 3.6, BUN 54 cre atinine 1.7. A limited echocardiogram reveals EF of 50-55%. 08/27 Patient has been afebrile, heart rate in 60s and 70s, blood pressure 94/52, pulse ox 90% on 4 L nasal cannula. 4 L is patient's baseline. WBC 13.3, hemoglobin 8.4, platelet count 87. Sodium 134, BUN 61 creatinine 1.89. Patient is now maintained on Lasix 80 mg oral daily. He has a slight bump in his renal function with BUN 63 creatinine 1.91 will plan to discontinue Zaroxolyn. His hemoglobin is 8.1. He is in the process of anemia workup. 08/28 Patient states that his cough is gone. He still complains of generalized fatig ue weakness and not feeling well in general. Patient has been seen by wound care and started on vancomycin as well. He has had a slight bump in his renal function with BUN 63 creatinine 1.91. Hemoglobin is 8.1 and patient has anemia workup in process. Blood pressure 97/50 and heart rate in the 70s and 80s. 08/29 Patient is seen today in follow-up. His creatinine is at 2.05, BUN 67, potassium 3.3. Hemoglobin is 8.1, platelet count 91. Physical examination: Gen: This is a obese 73-year-old male. He is resting in recliner and appears to be fairly comfortable on nasal O2. VS: reviewed HEENT: Head is atraumatic, normocephalic. Pupils equal, round. Sclerae is anicteric. NECK: Supple. No JVD. LUNGS: Diminished bilaterally. No intercostal retractions. HEART: Regular rate and rhythm. No murmur. EXTREMITIES: +pedal edema. Dressing in place to the left lower extremity NEUROLOGICAL: Patient is awake, alert and oriented x3. Assessment: Acute on chronic diastolic heart failure with acute pulmonary edema Paroxysmal atrial fibrillation Morbid obesity Chronic obstructive pulmonary disease exacerbation Chronic anemia Thrombocytopenia Acute kidney injury Cellulitis/wounds of the lower extremities started on vancomycin Plan: Continue Lasix 80 mg oral daily Discontinue Zaroxolyn Continue other cardiac medications Monitor I&O, daily weights, electrolytes and renal function Further recommendations to follow based upon clinical course Nurse practitioner note has been reviewed, I agree with documented findings and plan of care. Patient was seen and examined. Objective - Vital Signs Vital signs: Vital Signs Temp 97.5 F L 08/29/23 08:00 Pulse 72 08/29/23 08:23 Resp 24 08/29/23 08:00 BP 104/56 08/29/23 08:00 Pulse Ox 97 08/29/23 08:00 FiO2 30 08/29/23 03:47 Intake & Output 08/28/23 08/29/23 08/29/23 18:59 06:59 18:59 Intake Total 660 118 Output Total 1220 800 Balance -560 -800 118 Weight 136.2 kg Intake: Oral 660 118 Output: Urine 1220 800 Other: Voiding Method Indwelling Catheter Indwelling Catheter Indwelling Catheter # Bowel Movements 1 - Labs CBC & Chem 7: 08/29/23 07:28 08/29/23 07:28 Labs: Abnormal Lab Results - Last 24 Hours (Table) 08/27/23 08/27/23 08/28/23 Range/Units 15:01 15:01 11:37 C-Reactive Protein 7.0 H (<1.0) mg/dL Dmozg-4-Thcdaighn 0.50 H (0.10-0.40) d/dL RBC Folate 1,151 H (280 - 791) ng/mL Procalcitonin (0.02-0.09) ng/mL Free [place] LC, Quant 7.93 H (0.33-1.94) mg/dL Free Lambda LC, Quant 5.67 H (0.57-2.63) mg/dL 08/28/23 Range/Units 11:37 C-Reactive Protein (<1.0) mg/dL Anjtx-7-Ccncxiobn (0.10-0.40) d/dL RBC Folate (280 - 791) ng/mL Procalcitonin 0.33 H (0.02-0.09) ng/mL Free [place] LC, Quant (0.33-1.94) mg/dL Free Lambda LC, Quant (0.57-2.63) mg/dL Microbiology - Last 24 Hours (Table) 08/23/23 09:15 Blood Culture - Final Blood
--- NOTE | 2023-08-29 13:54 | P.PN ---
Subjective Progress Note Date: 08/29/23 HISTORY OF PRESENT ILLNESS: This is a 73-year-old male with a previous medical history significant for hypertension and hypertensive cardiovascular disease, hyperlipidemia, obesity with obstructive sleep apnea and obesity hypoventilation syndrome, chronic diastolic heart failure, asthma, hypothyroidism, anxiety and depressive disorder, peripheral neuropathy, patient was recently discharged from [facility] after he was admitted to the hospital for acute diastolic heart failure and pulmonary edema, and he was discharged back to [facility] on the , patient was doing fine and he was seen on Friday he was doing fine suddenly developed to have a significant weeping from both lower extremities despite taken spironolactone as well as Lasix and Farxiga, patient has been on oxygen at 4 L Cannula, patient weight has been increased, with increased weeping from both lower extremities, the nursing staff came to see the patient in the morning and he was unresponsive with oxygen saturation in the low 80s, 911 was called and the patient was. On the high flow oxygen he went up to 88%, patient was transported to the emergency department at [facility], had a chest x- ray that showed bulbar edema, he was placed on a BiPAP, with Lasix 40 mg IV push, he felt much better he is sitting down in bed, he continues to be somewhat short of breath, he continues to have significant swelling in both lower extremities with minimal denuded blister in the left lower extremity, he does appear to have a chronic stasis edema, patient appears to be more awake and alert at the time of evaluation in the ER. Patient will be admitted to the hospital for acute diastolic heart failure with The BiPAP, Would Be Started on Lasix 80 Mg IV Push Every 12 Hours. 08/24: Patient is feeling better today, he continues to be on 4 L nasal cannula, he denies any chest pain, isosorbide, uses the BiPAP on and off, he is diuresing with Lasix 80 mg IV push every 12 hours, he is continued for sick at 10 mg every day, spironolactone 25 mg once every day, monitor the patient input and output and daily weight, follow the patient very closely. Cardiology is to see the patient as he is complaining of chest pin suggestive of CAD 08/25: Patient continues to have slow improvement of his breathing status. Patient is on BiPAP during the night with pulse ox of 94%, currently on 4 L nasal cannula with pulse ox of 97%. Heart rate is mostly in the 50s and 60s, blood pressure 104/56. Repeat blood work reveals WBC 10.1, hemoglobin 8.4, platelet count 103. Sodium 138, potassium 3.9, BUN 49 creatinine 1.51. CO2 is 31. Limited echocardiogram reveals EF of 50-55%. Patient has a negative fluid balance. Weights do not appear to be accurate. Cardiology has decreased frequency of IV Lasix 80 mg 2 once daily and continued Zaroxolyn for today. 08/26: Patient has been seen by cardiology and IV Lasix has been transitioned to oral at 80 mg daily and continued on Zaroxolyn 5 mg daily. He has had increase in his BUN to 54 and creatinine 1.7. His breathing status seems to be stable. He is using BiPAP when sleeping at nighttime and on nasal cannula during the day at 4 L. His heart rate is running in the 70s, blood pressure 121/72. Other blood work reveals hemoglobin is stable at 8.7, WBC 16.4 platelet count 86. 08/27: Patient has been seen by cardiology today with recommendations to continue oral Lasix at 80 mg daily and metolazone 5 mg daily. Blood pressures been on the soft side 94/52, heart rate in the 60s and 70s. He has been afebrile, pulse ox 90% on 4 L nasal cannula. Repeat blood work reveals WBC 13.3, hemoglobin 8.4, platelet count 87. Sodium 134, BUN 61 creatinine 1.89. P atient states that in general he does not feel well. Anemia workup added. 08/28: Consults were added yesterday afternoon for Wound Center and infectious disease. Patient has been started on IV vancomycin. He has had a slight bump in his renal function with BUN 63 creatinine 1.91. Cardiology has discontinued Zaroxolyn. Hemoglobin is 8.1 and anemia workup was ordered yesterday. Patient's blood pressures been 97/50 heart rate in the 70s and 80s. Patient is utilizing BiPAP when sleeping or at nighttime. During the day he is on 4 L nasal cannula with pulse ox 97%. Patient continues to complain of generalized fatigue and weakness and not feeling well in general. Cough is improved. 08/29: First blood culture Gram stain was positive for gram-positive cocci in clusters. Culture is showing no growth after 72 hours. He had a second blood culture obtained which was finalized with no growth at 5 days. A repeat blood culture was obtained yesterday and is status received. Bacteremia is possible contamination but patient is currently on vancomycin as advised by Dr. Valle. He has been seen by Wound Center with recommendations for left lower extremity: Honey gel, border foam wrap with Toribio wrap to control swelling. Right lower extremity apply triad and rolled gauze and wrap with Toribio wrap. Legs are to be elevated for 30 minutes at least 3 times a day. Patient is seen today in rec liner with his legs elevated. He is off the BiPAP for now. He is utilizing BiPAP for nighttime and when sleeping. He has been afebrile, heart rate in the 70s, blood pressure 96/50. Repeat blood work reveals WBC 9.2, hemoglobin 8.1, platelet count 91. Sodium 133, potassium 3.3, chloride 90, CO2 34, BUN 67 creatinine 2.05.cardiology has discontinued Zaroxolyn and continue patient on Lasix 80 mg oral daily as well as spironolactone 12.5 mg daily. Patient to be transferred to [facility] floor with telemetry. REVIEW OF SYSTEMS: Constitutional: No documented fever, no chills, no night sweats. No weight change. No weakness, fatigue or lethargy. No daytime sleepiness. HEENT: No headache. No blurred vision or double vision, no loss of vision. Chronic loss of Hearing, no ringing in the ears, no dizziness. No nasal drainage or congestion. No epistaxis. No sore throat. Lungs: positive for shortness of breathimproving, occasional cough, minimal sputum production. No wheezing. Reports dyspnea with activity. Cardiovascular: Denies chest pain, positive for lower extremity edema. No palpitations. No paroxysmal nocturnal dyspnea. No orthopnea. No lightheadedness or dizziness. No syncopal episodes. Abdominal: Denies abdominal pain. No nausea, vomiting. No diarrhea. No co nstipation. No bloody or tarry stools reports loss of appetite. Genitourinary: No dysuria, increased frequency, urgency. No urinary retention. Musculoskeletal: No myalgias. positive for muscle weakness, positive for gait dysfunction, positive for frequent falls. positive for back pain. No neck pain, bilateral hip pain Integumentary: No wounds, no lesions. No rash or pruritus. No unusual b ruising. No change in hair or nails. Neurologic: No aphasia. No facial droop. Mild chronic change in mentation. No head injury. No headache. No paralysis. No paresthesia. Psychiatric: No depression. No anxiety. No mood swings. Endocrine: No abnormal blood sugars. No weight change. PHYSICAL EXAMINATION: General: 72-year-old male lying down in a recliner in no respiratory distress HEENT: Head is atraumatic, normocephalic, pupils were equal round reactive to light and recommendation, extraocular muscle movement were intact, sclera nonicteric, conjunctivae were pale, mucous membranes of the mouth are somewhat dry. Neck: Supple, no JVP, normal carotid upstroke bilaterally, no lymphadenopathy. Chest: Decreased breath sounds at the bases, few rhonchi, no expiratory wheezes, no chest wall tenderness, no intercostal retractions. Heart: First heart sound is normal, second heart sound is normal, there is systolic ejection murmur 2/6 located in the left sternal border. Abdomen: Soft, nontender, nondistended, positive bowel sounds, obese. Extremities: There is +1 edema no calf tenderness DP +2 bilaterally, there is bilateral scabbed lesions in both shins free Neurologic examination: Patient is awake alert and oriented X 3, cranial nerves II-12 appear grossly intact, muscle power were 5 out of 5 in upper extremities and 3/5 in bilateral lower extremities ASSESSMENT AND PLAN: 1. Acute hypoxemic respiratory failure due to acute on chronic diastolic heart failure and COPD wit RAMYA and OHS . patient is on Lasix 80 mg oral daily, monitor input and output and daily weight, continue spironolactone 25 mg orally once every day, continue patient on Farxiga 10 mg orally once every day, metoprolol 37.5 mg orally twice every day, metolazone discontinued cardiology consultation appreciated. 2. COPD/moderate persistent asthma and not in exacerbation with chronic hypoxe seun respiratory failure continue oxygen support continue DuoNeb 3 mg nebulization 4 times every day. 3. Paroxysmal atrial fibrillation/ Flutter. Continue patient on metoprolol 37.5 mg orally twice every day, on Xarelto 15 mg orally once every day 4. Hypertension and hypertensive cardiovascular disease. Continue patient on metoprolol 25 mg orally twice every day, monitor the patient blood pressure very closely. 5. Hyperlipidemia. Continue patient on atorvastatin 20 mg orally once every day, monitor lipid panel, keep LDL 55-70. 6. Enlarged prostate. Continue patient on tamsulosin 0.4 mg orally once every day. 7. Anxiety disorder. Continue patient on sertraline 100 mg orally once every day. 8. Neuropathy. Continue patient on gabapentin 300 mg at bedtime. 9. Thrombocytopenia. Continue to monitor 10. Acute kidney injury. Lasix has been decreased to 80 mg oral daily, Z aroxolyn discontinued . Continue to monitor renal function, avoid nephrotoxic agents. 11. Depression. we will continue with Sertraline 100 mg po daily 12. Wounds to the bilateral lower extremities/cellulitis: Nonhealing ulcer left calf, right lower extremity, chronic venous insufficiency. Consult with Wound Center and infectious disease. Patient started on vancomycin. 13. DVT prophylaxis. Continue Xarelto 15 mg po daily 14. GI prophylaxis. Continue patient on Protonix 40 mg orally once every day. 15. 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 Discharge planning to return to [facility]. DNR Impression and plan of care have been directed as dictated by the signing physician. Concepción Perkins nurse practitioner acting as scribe for signing physician. Objective - Vital Signs Vital signs: Vital Signs Temp 97.5 F L 08/29/23 08:00 Pulse 72 08/29/23 08:23 Resp 24 08/29/23 08:00 BP 104/56 08/29/23 08:00 Pulse Ox 97 08/29/23 08:00 FiO2 30 08/29/23 03:47 Intake & Output 08/28/23 08/29/23 08/29/23 18:59 06:59 18:59 Intake Total 660 118 Output Total 1220 800 Balance -560 -800 118 Weight 136.2 kg Intake: Oral 660 118 Output: Urine 1220 800 Other: Voiding Method Indwelling Catheter Indwelling Catheter Indwelling Catheter # Bowel Movements 1 - Labs CBC & Chem 7: 08/29/23 07:28 08/29/23 07:28 Labs: Abnormal Lab Results - Last 24 Hours (Table) 08/27/23 08/27/23 08/28/23 Range/Units 15:01 15:01 11:37 C-Reactive Protein 7.0 H (<1.0) mg/dL Awhno-1-Gouqailro 0.50 H (0.10-0.40) d/dL RBC Folate 1,151 H (280 - 791) ng/mL Procalcitonin (0.02-0.09) ng/mL Free [place] LC, Quant 7.93 H (0.33-1.94) mg/dL Free Lambda LC, Quant 5.67 H (0.57-2.63) mg/dL 08/28/23 Range/Units 11:37 C-Reactive Protein (<1.0) mg/dL Jshgu-6-Embdncoci (0.10-0.40) d/dL RBC Folate (280 - 791) ng/mL Procalcitonin 0.33 H (0.02-0.09) ng/mL Free [place] LC, Quant (0.33-1.94) mg/dL Free Lambda LC, Quant (0.57-2.63) mg/dL Microbiology - Last 24 Hours (Table) 08/23/23 09:15 Blood Culture - Final Blood
[2023-08-29] MEDS ORDERED: ARTIFICIAL TEARS-HYPROMELLOSE DROPS 15 ML BTL BOTH EYES PRN (16:14)
[2023-08-29] MEDS: RIVAROXABAN 15 MG TAB PO SCH (17:20)
[2023-08-29] MEDS: MELATONIN 5 MG TABLET PO PRN (20:42)
[2023-08-29] MEDS: GABAPENTIN 300 MG CAP PO SCH (20:43)
[2023-08-29] MEDS: SERTRALINE 100 MG TAB PO SCH (20:43)
[2023-08-29] MEDS: ATORVASTATIN 20 MG TAB PO SCH (20:43)
[2023-08-29] MEDS: MONTELUKAST 10 MG TAB PO SCH (20:43)
[2023-08-30] MEDS: BACLOFEN 10 MG TAB PO PRN ×2 (01:05→21:15)
[2023-08-30 07:59] LABS: African American GFR (CKD) 36 (>60 ml/min/1.73 sqM); Non-African American GFR(CKD) 32 (>60 ml/min/1.73 sqM)
[2023-08-30 08:04] LABS: Vancomycin,Random 23.6 ug/mL
[2023-08-30] MEDS: IPRATROPIUM-ALBUTEROL 3 ML NEB INHALATION SCH ×4 (08:13→20:52)
[2023-08-30] MEDS: BUDESONIDE 1 MG/2 ML NEBU INHALATION SCH ×2 (08:14→20:52)
[2023-08-30 08:59] LABS: Reticulocyte % 2.94 % (0.10-1.80)
[2023-08-30] MEDS: NYSTATIN 100,000 UNIT/ML SUSP 500,000 UNIT/5 ML CUP PO SCH ×3 (09:32→21:15)
[2023-08-30] MEDS: allopurinoL 100 MG TAB PO SCH (09:32)
[2023-08-30] MEDS: PANTOPRAZOLE 40 MG TABLET PO SCH (09:32)
[2023-08-30] MEDS: CHOLECALCIFEROL 25 MCG (1000 IU) TABLET PO SCH (09:32)
[2023-08-30] MEDS: METOPROLOL TARTRATE 12.5 MG TAB PO SCH ×2 (09:32→21:16)
[2023-08-30] MEDS: DAPAGLIFLOZIN PROPANEDIOL 10 MG TABLET PO SCH (09:32)
[2023-08-30] MEDS: NYSTATIN 100,000 UNIT/GM POWD 15 GM TOPICAL SCH ×2 (09:33→21:15)
[2023-08-30] MEDS: MAGNESIUM OXIDE 400 MG TAB PO SCH (09:33)
[2023-08-30] MEDS: TAMSULOSIN 0.4 MG CAP.ER.24H PO SCH (09:33)
[2023-08-30] MEDS: FUROSEMIDE 80 MG TAB PO SCH (09:41)
[2023-08-30] MEDS: SPIRONOLACTONE 25 MG TAB PO SCH (09:42)
--- NOTE | 2023-08-30 10:11 | P.CONS ---
History of Present Illness - Reason for Consult Consult date: 08/29/23 Bicytopenia - History of Present Illness The patient is a 73-year-old white male with multiple medical problems. He was admitted with shortness of breath and hypoxia, and was determined to be in congestive heart failure. The patient also has wounds on both lower extremities, and had blood culture positive for gram-positive cocci. He is currently on IV antibiotics for the same. During this admission hemoglobin has been in the 8 range, with platelets in the 90,000 range. WBC has been normal. It was therefore placed for further evaluation and recommendations regarding possibility of a primary bone marrow condition. Multiple labs and other studies were reviewed in the EMR, going back to 2013. The patient has been noted to be anemic since approximately the end of 2021. Since then he is also had intermittently low platelet counts. episodes of the drop in hemoglobin and platelets appeared to coincide with acute illnesses. The patient also has CKD, with kidney function lower inner more consistent manner again since the beginning of this year. During this admission creatinine has been 1.9-2.1. The patient is on anticoagulation chronically. He states that this was for a blood clot. He had EGD and colonoscopy in 2014, that showed Kim's esophagus and positivity for H. pylori. The patient's recall is somewhat diminished and he was unable to tell me if he was treated for the H Pylori or if he has had any follow-up endoscopies since then at other institutions. He denied any bleeding in the stool or melena. MRCP in 05/22, done for evaluation of possible pancreatic mass and confirmed as cirrhosis. However incidentally there was evidence of hepatic steatosis and splenomegaly. Ultrasound [facility] in 12/21 had shown no hydronephrosis. CT abdomen and pelvis in 2019 was read as normal. Multiple doppler reports between 2013 and 2015, as well as CTA in 2013 were reviewed showing no evidence of venous thrombus embolism. Labs this visit show negative SPEP, both light chains elevated with normal ratio, high folate, B12 borderline at 329, iron saturation quite low at 3.8%, with ferritin of 165. Review of Systems Constitutional: Reports fatigue, Reports weakness Eyes: denies blurred vision, denies pain Ears: deny: decreased hearing, ear discharge, earache, tinnitus Ears, nose, mouth and throat: Denies headache, Denies sore throat Cardiovascular: Reports as per HPI, Reports leg edema, Reports shortness of breath Respiratory: Reports dyspnea Gastrointestinal: Reports as per HPI Genitourinary: Reports as per HPI Musculoskeletal: Reports as per HPI, Reports muscle weakness Integumentary: Reports wounds Neurological: Reports memory loss, Reports weakness Psychiatric: Reports memory loss Endocrine: Reports high blood sugars Hematologic/Lymphatic: Reports as per HPI Past Medical History Past Medical History: Asthma, Chest Pain / Angina, GERD/Reflux, Hyperlipidemia, Hypertension, Osteoarthritis (OA), Pneumonia, Sleep Apnea/CPAP/BIPAP Additional Past Medical History / Comment(s): uses oxygen at night 2L, gout, in wheelchair or walker due to pain in left leg, poor circulation in legs History of Any Multi-Drug Resistant Organisms: None Reported Past Surgical History: Orthopedic Surgery, Tonsillectomy Additional Past Surgical History / Comment(s): LEFT WRIST ORIF, LEFT KNEE REPLACEMENT, bilateral cataract surgery Past Anesthesia/Blood Transfusion Reactions: No Reported Reaction Additional Past Anesthesia/Blood Transfusion Reaction / Comm: . Past Psychological History: Depression Additional Psychological History / Comment(s): Patient states he has slight confusion / memory loss. Smoking Status: Former smoker Past Alcohol Use History: None Reported Past Drug Use History: None Reported - Past Family History Mother Family Medical History: Congestive Heart Failure (CHF), Osteoarthritis (OA) Father Additional Family Medical History / Comment(s): FROM [place] Brother(s) Family Medical History: Cancer Additional Family Medical History / Comment(s): . Sister(s) Family Medical History: Deep Vein Thrombosis (DVT) Medications and Allergies Home Medications Medication Instructions Recorded Confirmed Type Sertraline [Zoloft] 100 mg PO HS 04/04/17 08/23/23 History Atorvastatin [Lipitor] 20 mg PO HS 07/14/19 08/23/23 History Tamsulosin [Flomax] 0.4 mg PO DAILY 07/14/19 08/23/23 History Ipratropium-Albuterol Nebulize 3 ml INHALATION RT-Q6H 08/19/19 08/23/23 History [Duoneb 0.5 mg-3 mg/3 ml Soln] Acetaminophen Tab [Tylenol] 500 mg PO Q6H PRN 03/26/23 08/23/23 History Cholecalciferol [Vitamin D3 (25 50 mcg PO DAILY 03/26/23 08/23/23 History Mcg = 1000 Iu)] Baclofen [Lioresal] 10 mg PO BID PRN tab 03/31/23 08/23/23 Rx Rivaroxaban [Xarelto] 15 mg PO W/SUPPER #30 tab 06/25/23 08/23/23 Rx Benzonatate [Tessalon Perles] 200 mg PO TID PRN cap 07/17/23 08/23/23 Rx Dapagliflozin Propanediol [Farxiga] 5 mg PO DAILY 08/07/23 08/23/23 History Magnesium Oxide [Mag-Ox] 400 mg PO DAILY 08/07/23 08/23/23 History Montelukast [Singulair] 10 mg PO HS 08/07/23 08/23/23 History Omeprazole [PriLOSEC] 20 mg PO DAILY 08/07/23 08/23/23 History Tirzepatide [Mounjaro] 2.5 mg SQ MO 08/07/23 08/23/23 History Budesonide [Pulmicort] 1 mg INHALATION RT-BID ml 08/11/23 08/23/23 Rx Furosemide [Lasix] 60 mg PO DAILY tab 08/11/23 08/23/23 Rx Gabapentin [Neurontin] 300 mg PO HS #3 cap 08/11/23 08/23/23 Rx Melatonin 10 mg PO HS PRN tab 08/11/23 08/23/23 Rx Spironolactone [Aldactone] 12.5 mg PO DAILY tab 08/11/23 08/23/23 Rx Ammonium Lactate Lotion 1 applic TOPICAL DAILY 08/23/23 08/23/23 History [Lac-Hydrin 12% Lotion] Metoprolol Tartrate [Lopressor] 37.5 mg PO BID 08/23/23 08/23/23 History allopurinoL 200 mg PO DAILY 08/23/23 08/23/23 History predniSONE [Deltasone] See Taper PO DAILY 08/23/23 08/23/23 History Allergies Allergy/AdvReac Type Severity Reaction Status Date / Time No Known Allergies Allergy Verified 08/23/23 10:52 Physical Exam Vitals: Vital Signs Temp Pulse Pulse Resp BP Pulse Ox FiO2 08/29/23 14:00 59 L 20 08/29/23 11:49 76 08/29/23 11:38 76 08/29/23 11:30 97.4 F L 59 L 20 96/50 94 L 30 08/29/23 08:23 72 08/29/23 08:08 72 08/29/23 08:00 97.5 F L 75 24 104/56 97 08/29/23 03:47 30 08/29/23 03:39 98.4 F 66 20 98/60 97 30 08/28/23 23:53 30 08/28/23 21:03 77 08/28/23 20:55 73 08/28/23 19:55 97.4 F L 76 24 101/63 97 08/28/23 16:27 56 L 08/28/23 16:25 55 L 18 93/48 97 08/28/23 16:17 68 Intake and Output 08/29/23 08/29/23 08/29/23 06:59 14:59 22:59 Intake Total 472 Output Total 800 575 Balance -800 -103 Intake: Oral 472 Output: Urine 800 575 Other: Voiding Method Indwelling Catheter Indwelling Catheter Weight 136.2 kg - Constitutional General appearance: no acute distress, obese - EENT Eyes: EOMI, PERRLA ENT: hearing grossly normal, normal oropharynx - Respiratory Respiratory: bilateral: diminished, rales - Cardiovascular Rhythm: regular Heart sounds: normal: S1, S2 - Gastrointestinal General gastrointestinal: normal bowel sounds, soft - Integumentary Both lower extremities bandaged below the knee - Neurologic Neurologic: CNII-XII intact - Musculoskeletal Musculoskeletal: generalized weakness, strength equal bilaterally - Psychiatric Psychiatric: A&O x's 3, appropriate affect Results CBC & Chem 7: 08/29/23 07:28 08/30/23 06:21 Labs: Abnormal Lab Results - Last 24 Hours (Table) 08/27/23 08/28/23 08/29/23 Range/Units 15:01 11:37 07:28 RBC (4.30-5.90) m/uL Hgb (13.0-17.5) gm/dL Hct (39.0-53.0) % MCHC (31.0-37.0) g/dL RDW (11.5-15.5) % Plt Count (150-450) k/uL Sodium 133 L (137-145) mmol/L Potassium 3.3 L (3.5-5.1) mmol/L Chloride 90 L (98-107) mmol/L Carbon Dioxide 34 H (22-30) mmol/L BUN 67 H (9-20) mg/dL Creatinine 2.05 H (0.66-1.25) mg/dL Glucose 108 H (74-99) mg/dL Calcium 8.0 L (8.4-10.2) mg/dL Alkaline Phosphatase 232 H (38-126) U/L Total Protein 6.0 L (6.3-8.2) g/dL Albumin 3.0 L (3.5-5.0) g/dL [id number]-6-[id number] 0.50 H (0.10-0.40) d/dL Procalcitonin 0.33 H (0.02-0.09) ng/mL 08/29/23 Range/Units 07:28 RBC 2.97 L (4.30-5.90) m/uL Hgb 8.1 L (13.0-17.5) gm/dL Hct 26.3 L (39.0-53.0) % MCHC 30.6 L (31.0-37.0) g/dL RDW 18.3 H (11.5-15.5) % Plt Count 91 L (150-450) k/uL Sodium (137-145) mmol/L Potassium (3.5-5.1) mmol/L Chloride (98-107) mmol/L Carbon Dioxide (22-30) mmol/L BUN (9-20) mg/dL Creatinine (0.66-1.25) mg/dL Glucose (74-99) mg/dL Calcium (8.4-10.2) mg/dL Alkaline Phosphatase (38-126) U/L Total Protein (6.3-8.2) g/dL Albumin (3.5-5.0) g/dL Zpntm-5-Aqyukstjc (0.10-0.40) d/dL Procalcitonin (0.02-0.09) ng/mL Microbiology - Last 24 Hours (Table) 08/23/23 08:33 Blood Culture Gram Stain - Final Blood Blood Culture - Preliminary 08/23/23 09:15 Blood Culture - Final Blood Comments: CTA report reviewed Chest x-ray: report reviewed CT scan - abdomen: report reviewed CT scan - pelvis: report reviewed MRI - abdomen: report reviewed Venous US: report reviewed Assessment and Plan (1) Bicytopenia Narrative/Plan: . The consult was placed for bicytopenia, with some worsening of counts from baseline noted during this admission. Concern is for a primary bone marrow disorder such as MDS - while an underlying marrow dysfunction cannot be ruled out at this time, the patient actually has has other, very reasonable etiologies, for his findings. He has C kidney, as well as chronic ongoing inflammation related to his leg wounds, which can definitely cause anemia of this degree. In addition, in a patient with C kidney and chronic inflammation, a ferritin in this range, with markedly low iron saturation could still be compatible with iron deficiency. The patient does have risk factors for blood loss, with ongoing anticoagulation, and a known history of H pylori and Kim's esophagus. - In addition his B12 is borderline at 329. I will check an MMA to evaluate for functional B12 deficiency. - Therefore in this patient, I would recommend iron supplementation ( IV iron preferred months active infection is ruled out or resolved), as well as B12 supplementation, if indicated per MMA. If hemoglobin is still consistently below 9-9.5 with the above ( and improvement in the inflammation), it would be reasonable to consider DALLIN for anemia of chronic kidney disease. This would be quite appropriate in terms of management, if the patient has an underlying component of MDS - continue to monitor and transfuse to keep hemoglobin greater than 7 - similarly the mild thrombocytopenia could be related to his hepatic steatosis and splenomegaly, with some transient worsening due to current inflam mation/infection as well as CHF ( Which will increased hepatic and splenic congestion). platelets are well within a safe range and does not require any intervention. Continue to monitor. I would anticipate that they will likely improve as his acute condition resolves Current Visit: Yes Status: Acute Code(s): D75.89 - OTHER SPECIFIED DISEASES OF BLOOD AND BLOOD-FORMING ORGANS SNOMED Code(s): 80804754 Plan: Defer to the admitting service for management of his other medical problems Case d/w IM in detail
[2023-08-30 12:49] LABS: ALT 24 U/L (4-49); AST 31 U/L (17-59); African American GFR (CKD) 36 (>60 ml/min/1.73 sqM); Albumin 2.9 g/dL (3.5-5.0); Albumin/Globulin Ratio 0.9; Alkaline Phosphatase 249 U/L (38-126); Anion Gap 9 mmol/L; Blood Urea Nitrogen 73 mg/dL (9-20); Calcium 8.3 mg/dL (8.4-10.2); Carbon Dioxide 34 mmol/L (22-30); Chloride 90 mmol/L (98-107); Globulin 3.1 g/dL; Glucose 103 mg/dL (74-99); Non-African American GFR(CKD) 31 (>60 ml/min/1.73 sqM); Potassium 3.6 mmol/L (3.5-5.1); Sodium 133 mmol/L (137-145); Total Bilirubin 0.8 mg/dL (0.2-1.3)
[2023-08-30] MEDS: HYDROPHILIC CREAM 180 GM TUBE TOPICAL SCH (13:32)
--- NOTE | 2023-08-30 14:08 | P.PN ---
Subjective Progress Note Date: 08/30/23 HISTORY OF PRESENT ILLNESS: This is a 73-year-old male with a previous medical history significant for hypertension and hypertensive cardiovascular disease, hyperlipidemia, obesity with obstructive sleep apnea and obesity hypoventilation syndrome, chronic diastolic heart failure, asthma, hypothyroidism, anxiety and depressive disorder, peripheral neuropathy, patient was recently discharged from [facility] after he was admitted to the hospital for acute diastolic heart failure and pulmonary edema, and he was discharged back to [facility] on the , patient was doing fine and he was seen on Friday he was doing fine suddenly developed to have a significant weeping from both lower extremities despite taken spironolactone as well as Lasix and Farxiga, patient has been on oxygen at 4 L Cannula, patient weight has been increased, with increased weeping from both lower extremities, the nursing staff came to see the patient in the morning and he was unresponsive with oxygen saturation in the low 80s, 911 was called and the patient was. On the high flow oxygen he went up to 88%, patient was transported to the emergency department at [facility], had a chest x- ray that showed bulbar edema, he was placed on a BiPAP, with Lasix 40 mg IV push, he felt much better he is sitting down in bed, he continues to be somewhat short of breath, he continues to have significant swelling in both lower extremities with minimal denuded blister in the left lower extremity, he does appear to have a chronic stasis edema, patient appears to be more awake and alert at the time of evaluation in the ER. Patient will be admitted to the hospital for acute diastolic heart failure with The BiPAP, Would Be Started on Lasix 80 Mg IV Push Every 12 Hours. 08/24: Patient is feeling better today, he continues to be on 4 L nasal cannula, he denies any chest pain, isosorbide, uses the BiPAP on and off, he is diuresing with Lasix 80 mg IV push every 12 hours, he is continued for sick at 10 mg every day, spironolactone 25 mg once every day, monitor the patient input and output and daily weight, follow the patient very closely. Cardiology is to see the patient as he is complaining of chest pin suggestive of CAD 08/25: Patient continues to have slow improvement of his breathing status. Patient is on BiPAP during the night with pulse ox of 94%, currently on 4 L nasal cannula with pulse ox of 97%. Heart rate is mostly in the 50s and 60s, blood pressure 104/56. Repeat blood work reveals WBC 10.1, hemoglobin 8.4, platelet count 103. Sodium 138, potassium 3.9, BUN 49 creatinine 1.51. CO2 is 31. Limited echocardiogram reveals EF of 50-55%. Patient has a negative fluid balance. Weights do not appear to be accurate. Cardiology has decreased frequency of IV Lasix 80 mg 2 once daily and continued Zaroxolyn for today. 08/26: Patient has been seen by cardiology and IV Lasix has been transitioned to oral at 80 mg daily and continued on Zaroxolyn 5 mg daily. He has had increase in his BUN to 54 and creatinine 1.7. His breathing status seems to be stable. He is using BiPAP when sleeping at nighttime and on nasal cannula during the day at 4 L. His heart rate is running in the 70s, blood pressure 121/72. Other blood work reveals hemoglobin is stable at 8.7, WBC 16.4 platelet count 86. 08/27: Patient has been seen by cardiology today with recommendations to continue oral Lasix at 80 mg daily and metolazone 5 mg daily. Blood pressures been on the soft side 94/52, heart rate in the 60s and 70s. He has been afebrile, pulse ox 90% on 4 L nasal cannula. Repeat blood work reveals WBC 13.3, hemoglobin 8.4, platelet count 87. Sodium 134, BUN 61 creatinine 1.89. P atient states that in general he does not feel well. Anemia workup added. 08/28: Consults were added yesterday afternoon for Wound Center and infectious disease. Patient has been started on IV vancomycin. He has had a slight bump in his renal function with BUN 63 creatinine 1.91. Cardiology has discontinued Zaroxolyn. Hemoglobin is 8.1 and anemia workup was ordered yesterday. Patient's blood pressures been 97/50 heart rate in the 70s and 80s. Patient is utilizing BiPAP when sleeping or at nighttime. During the day he is on 4 L nasal cannula with pulse ox 97%. Patient continues to complain of generalized fatigue and weakness and not feeling well in general. Cough is improved. 08/29: First blood culture Gram stain was positive for gram-positive cocci in clusters. Culture is showing no growth after 72 hours. He had a second blood culture obtained which was finalized with no growth at 5 days. A repeat blood culture was obtained yesterday and is status received. Bacteremia is possible contamination but patient is currently on vancomycin as advised by Dr. Valle. He has been seen by Wound Center with recommendations for left lower extremity: Honey gel, border foam wrap with Toribio wrap to control swelling. Right lower extremity apply triad and rolled gauze and wrap with Toribio wrap. Legs are to be elevated for 30 minutes at least 3 times a day. Patient is seen today in rec liner with his legs elevated. He is off the BiPAP for now. He is utilizing BiPAP for nighttime and when sleeping. He has been afebrile, heart rate in the 70s, blood pressure 96/50. Repeat blood work reveals WBC 9.2, hemoglobin 8.1, platelet count 91. Sodium 133, potassium 3.3, chloride 90, CO2 34, BUN 67 creatinine 2.05.cardiology has discontinued Zaroxolyn and continue patient on Lasix 80 mg oral daily as well as spironolactone 12.5 mg daily. Patient to be transferred to [facility] floor with telemetry. 08/30: Patient was seen in consultation by hematology oncology due to concern of anemia with iron deficiency and possible myelodysplasia, this is likely related to any iron deficiency anemia due to chronic kidney disease, he may need to have some workup as an outpatient when the anemia is better, but at this point in time we'll continue treat his infection, continue to treat the patient supportive patient very closely, he may need to go back on iron infusion when the patient the infection is better, and he may need to go on erythropoietin according to hematology oncology down the line to treat both the anemia of chronic kidney disease and possible underlying MDS, to have some issues generalized weakness, patient not able template very well, he continues to be on IV diuretics, we will repeat his labs, patient will likely be transferred back to [facility] on the [place] in the next 1 or 2 days. REVIEW OF SYSTEMS: Constitutional: No documented fever, no chills, no night sweats. No weight change. No weakness, fatigue or lethargy. No daytime sleepiness. HEENT: No headache. No blurred vision or double vision, no loss of vision. Chronic loss of Hearing, no ringing in the ears, no dizziness. No nasal drainage or congestion. No epistaxis. No sore throat. Lungs: positive for shortness of breathimproving, occasional cough, minimal sputum production. No wheezing. Reports dyspnea with activity. Cardiovascular: Denies chest pain, positive for lower extremity edema. No palpitations. No paroxysmal nocturnal dyspnea. No orthopnea. No lightheadedness or dizziness. No syncopal episodes. Abdominal: Denies abdominal pain. No nausea, vomiting. No diarrhea. No co nstipation. No bloody or tarry stools reports loss of appetite. Genitourinary: No dysuria, increased frequency, urgency. No urinary retention. Musculoskeletal: No myalgias. positive for muscle weakness, positive for gait dysfunction, positive for frequent falls. positive for back pain. No neck pain, bilateral hip pain Integumentary: No wounds, no lesions. No rash or pruritus. No unusual b ruising. No change in hair or nails. Neurologic: No aphasia. No facial droop. Mild chronic change in mentation. No head injury. No headache. No paralysis. No paresthesia. Psychiatric: No depression. No anxiety. No mood swings. Endocrine: No abnormal blood sugars. No weight change. PHYSICAL EXAMINATION: General: 72-year-old male lying down in a recliner in no respiratory distress HEENT: Head is atraumatic, normocephalic, pupils were equal round reactive to light and recommendation, extraocular muscle movement were intact, sclera nonicteric, conjunctivae were pale, mucous membranes of the mouth are somewhat dry. Neck: Supple, no JVP, normal carotid upstroke bilaterally, no lymphadenopathy. Chest: Decreased breath sounds at the bases, few rhonchi, no expiratory wheezes, no chest wall tenderness, no intercostal retractions. Heart: First heart sound is normal, second heart sound is normal, there is systolic ejection murmur 2/6 located in the left sternal border. Abdomen: Soft, distended with abdomina wall edema and Ascites positive bowel sounds, obese. Extremities: There is +1 edema no calf tenderness DP +2 bilaterally, there is bilateral scabbed lesions in both shins , wrapped with kirlex wraps Neurologic examination: Patient is awake alert and oriented X 2, cranial nerves II-12 appear grossly intact, muscle power were 3out of 5 in upper extremities and 3/5 in bilateral lower extremities ASSESSMENT AND PLAN: 1. Acute hypoxemic respiratory failure due to acute on chronic diastolic heart failure and COPD wit RAMYA and OHS . patient is on Lasix 80 mg oral daily, monitor input and output and daily weight, continue spironolactone 12.5 mg orally once every day, continue patient on Farxiga 5 mg orally once every day, metoprolol 37.5 mg orally twice every day, metolazone discontinued cardiology consultation appreciated. 2. COPD/moderate persistent asthma and not in exacerbation with chronic hypoxemic respiratory failure continue oxygen support continue DuoNeb 3 mg nebulization 4 times every day. 3. Paroxysmal atrial fibrillation/ Flutter. Continue patient on metoprolol 37.5 mg orally twice every day, on Xarelto 15 mg orally once every day 4. Hypertension and hypertensive cardiovascular disease. Continue patient on metoprolol 37.5 mg orally twice every day, monitor the patient blood pressure very closely. 5. Hyperlipidemia. Continue patient on atorvastatin 20 mg orally once every day, monitor lipid panel, keep LDL 55-70. 6. Enlarged prostate. Continue patient on tamsulosin 0.4 mg orally once every day. 7. Anxiety disorder. Continue patient on sertraline 100 mg orally once every day. 8. Neuropathy. Continue patient on gabapentin 300 mg at bedtime. 9. Thrombocytopenia. Likely related to alcoholic fatty liver disease and possible liver cirrhosis patient did have an MRCP in the past that showed fatty liver as well as mild splenomegaly cannot entirely rule out myelodysplasia, we will check US of the abdomen for possible ascites 10. Acute kidney injury on chronic kidney disease stage III a. Lasix has been decreased to 40 mg oral daily, Zaroxolyn discontinued . Continue to monitor renal function, avoid nephrotoxic agents, check ultrasound of the kidneys, discontinue Farxiga 11. Depression. we will continue with Sertraline 100 mg po daily 12. Wounds to the bilateral lower extremities/cellulitis: Nonhealing ulcer left calf, right lower extremity, chronic venous insufficiency. Consult with Wound Center and infectious disease, continue with current local care, continue vancomycin. 13. Gram-positive cocci in clusters bacteremia status post vancomycin treatment repeated blood cultures are negative so far.ID is following 13. DVT prophylaxis. Continue Xarelto 15 mg po daily 14. GI prophylaxis. Continue patient on Protonix 40 mg orally once every day. 15. PT evaluation and general house worker consult. Discharge planning to return to [facility]. 16. DO NOT RESUSCITATE. 17. Obesity with obstructive sleep apnea and obesity hypoventilation syndrome. Continue patient on BiPAP. 18. Overall prognosis is guarded Objective - Vital Signs Vital signs: Vital Signs Temp 97.6 F 08/30/23 09:11 Pulse 65 08/30/23 09:11 Resp 19 08/30/23 09:11 BP 109/62 08/30/23 09:11 Pulse Ox 97 08/30/23 09:11 FiO2 30 08/30/23 01:04 Intake & Output 08/29/23 08/30/23 08/30/23 18:59 06:59 18:59 Intake Total 1090 Output Total 575 700 Balance 515 -700 Intake: Intake, IV Titration 500 Amount Vancomycin 1,750 mg In 500 Sodium Chloride 0.9% 500 ml 500 ml @ 167 mls/hr IVPB ONCE ONE Rx#: [id number] Oral 590 Output: Urine 575 700 Other: Voiding Method Indwelling Catheter Indwelling Catheter # Bowel Movements 2 1 - Labs CBC & Chem 7: 08/29/23 07:28 08/30/23 06:21 Labs: Abnormal Lab Results - Last 24 Hours (Table) 08/30/23 08/30/23 Range/Units 06:21 06:21 Retic Count 2.94 H (0.10-1.80) % Creatinine 2.04 H (0.66-1.25) mg/dL Microbiology - Last 24 Hours (Table) 08/28/23 11:37 Blood Culture - Preliminary Blood 08/23/23 08:33 Blood Culture Gram Stain - Final Blood Blood Culture - Preliminary
--- NOTE | 2023-08-30 15:15 | P.PN ---
Subjective Progress Note Date: 08/30/23 The patient is a 73-year-old male who follows with Dr. Lamb. He presented to the hospital with lower extremity wounds and diastolic heart failure. Hospital course his been complicated by anemia and chronic kidney disease. He's been thoroughly diuresed and his Zaroxolyn has since been discontinued. The patient was interviewed and examined resting comfortably in bed. He is not labored at rest. GENERAL: Well-appearing, obese male and in no acute distress. NECK: Supple without JVD or thyromegaly. LUNGS: Breath sounds diminished to auscultation bilaterally. Respiration equal and unlabored. No wheezes, rales or rhonchi. HEART: Regular rate and rhythm without murmurs, rubs or gallops. S1 and S2 heard. EXTREMITIES: Normal range of motion, 3+ pitting edema. Leg dressings in place No clubbing or cyanosis. Peripheral pulses intact and strong. LABS: Sodium 133, potassium 3.6, BUN 73, creatinine 2.05, AST 31, ALT 24, ALP 249 IMPRESSION: Acute on chronic diastolic heart failure with acute pulmonary edema Paroxysmal atrial fibrillation Morbid obesity Chronic obstructive pulmonary disease exacerbation Chronic anemia Thrombocytopenia Acute kidney injury Cellulitis/wounds of the lower extremities started on vancomycin PLAN: No change of medication regimen Recommend aggressive pulmonary hygiene and encourage ambulation Outpatient follow-up 2 weeks post discharge I am dictating on behalf of Dr Moncho Lamb's history/physical and assessment/plan. Objective - Vital Signs Vital signs: Vital Signs Temp 98.1 F 08/30/23 14:00 Pulse 69 08/30/23 14:00 Resp 20 08/30/23 14:00 BP 114/70 08/30/23 14:00 Pulse Ox 98 08/30/23 14:00 FiO2 30 08/30/23 01:04 Intake & Output 08/29/23 08/30/23 08/30/23 18:59 06:59 18:59 Intake Total 1090 Output Total 575 700 Balance 515 -700 Intake: Intake, IV Titration 500 Amount Vancomycin 1,750 mg In 500 Sodium Chloride 0.9% 500 ml 500 ml @ 167 mls/hr IVPB ONCE ONE Rx#: [id number] Oral 590 Output: Urine 575 700 Other: Voiding Method Indwelling Catheter Indwelling Catheter Indwelling Catheter # Bowel Movements 2 1 - Labs CBC & Chem 7: 08/29/23 07:28 08/30/23 06:21 Labs: Abnormal Lab Results - Last 24 Hours (Table) 08/30/23 08/30/23 08/30/23 Range/Units 06:21 06:21 06:21 Retic Count 2.94 H (0.10-1.80) % Sodium 133 L (137-145) mmol/L Chloride 90 L (98-107) mmol/L Carbon Dioxide 34 H (22-30) mmol/L BUN 73 H (9-20) mg/dL Creatinine 2.04 H 2.05 H (0.66-1.25) mg/dL Glucose 103 H (74-99) mg/dL Calcium 8.3 L (8.4-10.2) mg/dL Alkaline Phosphatase 249 H (38-126) U/L Total Protein 6.0 L (6.3-8.2) g/dL Albumin 2.9 L (3.5-5.0) g/dL Microbiology - Last 24 Hours (Table) 08/28/23 11:37 Blood Culture - Preliminary Blood 08/23/23 08:33 Blood Culture Gram Stain - Final Blood Blood Culture - Preliminary
--- NOTE | 2023-08-30 16:27 | US ---
EXAMINATION TYPE: US abdomen limited DATE OF EXAM: 08/30/2023 COMPARISON: NONE CLINICAL INDICATION: Male, 73 years old with history of Ascites; ASCITES *Limitations due to patients body habitus. patient lying towards left side. possible mild ascites LUQ /LLQ IMPRESSION: Mild ascites in the left lower quadrant of the abdomen.
--- NOTE | 2023-08-30 17:35 | P.PN ---
Subjective Progress Note Date: 08/30/23 Principal diagnosis: Bacteremia left leg wound and cellulitis Patient is a 73-year-old male with a past medical history significant for hypertension hyperlipidemia sleep apnea reflux and asthma presenting to the hospital for shortness of breath and hypoxemia requiring BiPAP patient did have blood culture drawn can be positive with gram-positive cocci and also noticed to have ulceration and erythema to the left lower extremity. On today's evaluation that is 08/30/2023, the patient remains to be afebrile, , the patient is breathing comfortably on 4L NC oxygen, the patient denies chest pain and no worsening cough, patient denies abdominal pain, nausea or vomiting and no diarrhea has been reported by the nursing staff Patient did have white count 9.2 as of yesterday, creatinine is 2.05, Objective - Vital Signs Vital signs: Vital Signs Temp 97.6 F 08/30/23 09:11 Pulse 74 08/30/23 12:13 Resp 19 08/30/23 09:11 BP 109/62 08/30/23 09:11 Pulse Ox 97 08/30/23 09:11 FiO2 30 08/30/23 01:04 Intake & Output 08/29/23 08/30/23 08/30/23 18:59 06:59 18:59 Intake Total 1090 Output Total 575 700 Balance 515 -700 Intake: Intake, IV Titration 500 Amount Vancomycin 1,750 mg In 500 Sodium Chloride 0.9% 500 ml 500 ml @ 167 mls/hr IVPB ONCE ONE Rx#: [id number] Oral 590 Output: Urine 575 700 Other: Voiding Method Indwelling Catheter Indwelling Catheter Indwelling Catheter # Bowel Movements 2 1 - Exam GENERAL DESCRIPTION: An elderly male lying in bed in no distress RESPIRATORY SYSTEM: Unlabored breathing , decreased breath sounds at bases HEART: S1 S2 regular rate and rhythm , ABDOMEN: Soft , no tenderness EXTREMITIES: Left leg is currently dressed no drainage on the dressing - Labs CBC & Chem 7: 08/29/23 07:28 08/30/23 06:21 Labs: Abnormal Lab Results - Last 24 Hours (Table) 08/30/23 08/30/23 08/30/23 Range/Units 06:21 06:21 06:21 Retic Count 2.94 H (0.10-1.80) % Sodium 133 L (137-145) mmol/L Chloride 90 L (98-107) mmol/L Carbon Dioxide 34 H (22-30) mmol/L BUN 73 H (9-20) mg/dL Creatinine 2.04 H 2.05 H (0.66-1.25) mg/dL Glucose 103 H (74-99) mg/dL Calcium 8.3 L (8.4-10.2) mg/dL Alkaline Phosphatase 249 H (38-126) U/L Total Protein 6.0 L (6.3-8.2) g/dL Albumin 2.9 L (3.5-5.0) g/dL Microbiology - Last 24 Hours (Table) 08/28/23 11:37 Blood Culture - Preliminary Blood 08/23/23 08:33 Blood Culture Gram Stain - Final Blood Blood Culture - Preliminary Assessment and Plan (1) Left leg cellulitis Current Visit: Yes Status: Acute Code(s): L03.116 - CELLULITIS OF LEFT LOWER LIMB SNOMED Code(s): 143260066 (2) Bacteremia Current Visit: Yes Status: Acute Code(s): R78.81 - BACTEREMIA SNOMED Code(s): 2402336 (3) Chronic venous hypertension (idiopathic) with ulcer and inflammation of bilateral lower extremity Current Visit: Yes Status: Acute Code(s): I87.333 - CHRONIC VENOUS HTN W ULCER AND INFLAM OF BILATERAL LOW EXTRM SNOMED Code(s): 022731393726396 Plan: 1patient with gram-positive bacteremia in this patient has been the hospital for about 5 days with initial presentation with increasing shortness of breath and hypoxemia has been diagnosed with a CHF exacerbation with a question of possible skin contamination versus related to the left lower extremity cellulitis as the patient to have evidence of left lower extremity swelling redness some superficial ulceration likely from ruptured blister mild warmth and redness to touch. 2blood cultures has been repeated and so far negative 3local wound care to the left extremity with a dry Aquacel dressing and Toribio wrap change every 48 hours discussed with the RN. 4will discontinue Vancomycin because of worsening of his Cr and start on daptomycin while waiting for the final on blood cultures Dictation was produced using [employer] software. please excuse any grammatical, word or spelling errors. Time with Patient: Less than 30
[2023-08-30] MEDS: RIVAROXABAN 15 MG TAB PO SCH (18:44)
[2023-08-30] MEDS: MONTELUKAST 10 MG TAB PO SCH (21:15)
[2023-08-30] MEDS: GABAPENTIN 300 MG CAP PO SCH (21:15)
[2023-08-30] MEDS: SERTRALINE 100 MG TAB PO SCH (21:15)
[2023-08-31 08:05] LABS: Anisocytosis Slight; Basophils % (A) 0 %; Eosinophils # (A) 0.2 k/uL (0-0.7); Eosinophils % (A) 3 %; HCT 25.9 % (39.0-53.0); HGB 8.2 gm/dL (13.0-17.5); Hypochromasia Moderate; Lymphocytes # (A) 0.8 k/uL (1.0-4.8); Lymphocytes % (A) 12 %; MCH 27.5 pg (25.0-35.0); MCHC 31.4 g/dL (31.0-37.0); MCV 87.4 fL (80.0-100.0); Mean Platelet Volume 7.6; Monocytes # (A) 0.6 k/uL (0-1.0); Monocytes % (A) 8 %; Neutrophils # (A) 5.4 k/uL (1.3-7.7); Neutrophils % (A) 76 %; Platelet Count 108 k/uL (150-450); RBC 2.97 m/uL (4.30-5.90); RDW 18.3 % (11.5-15.5); WBC 7.1 k/uL (3.8-10.6)
[2023-08-31] MEDS: BUDESONIDE 1 MG/2 ML NEBU INHALATION SCH ×2 (08:28→19:39)
[2023-08-31] MEDS: IPRATROPIUM-ALBUTEROL 3 ML NEB INHALATION SCH ×4 (08:28→19:39)
[2023-08-31 08:29] LABS: African American GFR (CKD) 44 (>60 ml/min/1.73 sqM); Non-African American GFR(CKD) 38 (>60 ml/min/1.73 sqM)
[2023-08-31 08:37] LABS: ALT 23 U/L (4-49); AST 31 U/L (17-59); African American GFR (CKD) 44 (>60 ml/min/1.73 sqM); Albumin 3.1 g/dL (3.5-5.0); Alkaline Phosphatase 223 U/L (38-126); Anion Gap 7 mmol/L; Blood Urea Nitrogen 76 mg/dL (9-20); Calcium 8.7 mg/dL (8.4-10.2); Carbon Dioxide 35 mmol/L (22-30); Chloride 92 mmol/L (98-107); Glucose 98 mg/dL (74-99); Magnesium 2.2 mg/dL (1.6-2.3); Non-African American GFR(CKD) 38 (>60 ml/min/1.73 sqM); Potassium 3.5 mmol/L (3.5-5.1); Sodium 134 mmol/L (137-145); Total Bilirubin 1.1 mg/dL (0.2-1.3); Total Protein 6.1 g/dL (6.3-8.2)
[2023-08-31] MEDS ORDERED: DAPAGLIFLOZIN PROPANEDIOL 5 MG TABLET PO SCH (09:00)
[2023-08-31] MEDS ORDERED: FUROSEMIDE 40 MG TAB PO SCH (09:00)
[2023-08-31] MEDS: DAPTOMYCIN IVPB SCH (09:25)
[2023-08-31] MEDS: CHOLECALCIFEROL 25 MCG (1000 IU) TABLET PO SCH (09:25)
[2023-08-31] MEDS: SODIUM CHLORIDE 0.9% IVPB SCH (09:25)
[2023-08-31] MEDS: PANTOPRAZOLE 40 MG TABLET PO SCH (09:25)
[2023-08-31] MEDS: allopurinoL 100 MG TAB PO SCH (09:25)
[2023-08-31] MEDS: NYSTATIN 100,000 UNIT/GM POWD 15 GM TOPICAL SCH ×2 (09:26→21:04)
[2023-08-31] MEDS: HYDROPHILIC CREAM 180 GM TUBE TOPICAL SCH (09:26)
[2023-08-31] MEDS: METOPROLOL TARTRATE 12.5 MG TAB PO SCH ×2 (09:26→21:04)
[2023-08-31] MEDS: TAMSULOSIN 0.4 MG CAP.ER.24H PO SCH (09:26)
[2023-08-31] MEDS: SPIRONOLACTONE 25 MG TAB PO SCH (09:26)
[2023-08-31] MEDS: NYSTATIN 100,000 UNIT/ML SUSP 500,000 UNIT/5 ML CUP PO SCH ×3 (09:27→21:04)
[2023-08-31] MEDS ORDERED: FUROSEMIDE 10 MG/ML 10 ML VIAL IV SCH (10:45)
--- NOTE | 2023-08-31 10:49 | P.PN ---
Subjective Progress Note Date: 08/31/23 HISTORY OF PRESENT ILLNESS: This is a 73-year-old male with a previous medical history significant for hypertension and hypertensive cardiovascular disease, hyperlipidemia, obesity with obstructive sleep apnea and obesity hypoventilation syndrome, chronic diastolic heart failure, asthma, hypothyroidism, anxiety and depressive disorder, peripheral neuropathy, patient was recently discharged from [facility] after he was admitted to the hospital for acute diastolic heart failure and pulmonary edema, and he was discharged back to [facility] on the , patient was doing fine and he was seen on Friday he was doing fine suddenly developed to have a significant weeping from both lower extremities despite taken spironolactone as well as Lasix and Farxiga, patient has been on oxygen at 4 L Cannula, patient weight has been increased, with increased weeping from both lower extremities, the nursing staff came to see the patient in the morning and he was unresponsive with oxygen saturation in the low 80s, 911 was called and the patient was. On the high flow oxygen he went up to 88%, patient was transported to the emergency department at [facility], had a chest x- ray that showed bulbar edema, he was placed on a BiPAP, with Lasix 40 mg IV push, he felt much better he is sitting down in bed, he continues to be somewhat short of breath, he continues to have significant swelling in both lower extremities with minimal denuded blister in the left lower extremity, he does appear to have a chronic stasis edema, patient appears to be more awake and alert at the time of evaluation in the ER. Patient will be admitted to the hospital for acute diastolic heart failure with The BiPAP, Would Be Started on Lasix 80 Mg IV Push Every 12 Hours. 08/24: Patient is feeling better today, he continues to be on 4 L nasal cannula, he denies any chest pain, isosorbide, uses the BiPAP on and off, he is diuresing with Lasix 80 mg IV push every 12 hours, he is continued for sick at 10 mg every day, spironolactone 25 mg once every day, monitor the patient input and output and daily weight, follow the patient very closely. Cardiology is to see the patient as he is complaining of chest pin suggestive of CAD 08/25: Patient continues to have slow improvement of his breathing status. Patient is on BiPAP during the night with pulse ox of 94%, currently on 4 L nasal cannula with pulse ox of 97%. Heart rate is mostly in the 50s and 60s, blood pressure 104/56. Repeat blood work reveals WBC 10.1, hemoglobin 8.4, platelet count 103. Sodium 138, potassium 3.9, BUN 49 creatinine 1.51. CO2 is 31. Limited echocardiogram reveals EF of 50-55%. Patient has a negative fluid balance. Weights do not appear to be accurate. Cardiology has decreased frequency of IV Lasix 80 mg 2 once daily and continued Zaroxolyn for today. 08/26: Patient has been seen by cardiology and IV Lasix has been transitioned to oral at 80 mg daily and continued on Zaroxolyn 5 mg daily. He has had increase in his BUN to 54 and creatinine 1.7. His breathing status seems to be stable. He is using BiPAP when sleeping at nighttime and on nasal cannula during the day at 4 L. His heart rate is running in the 70s, blood pressure 121/72. Other blood work reveals hemoglobin is stable at 8.7, WBC 16.4 platelet count 86. 08/27: Patient has been seen by cardiology today with recommendations to continue oral Lasix at 80 mg daily and metolazone 5 mg daily. Blood pressures been on the soft side 94/52, heart rate in the 60s and 70s. He has been afebrile, pulse ox 90% on 4 L nasal cannula. Repeat blood work reveals WBC 13.3, hemoglobin 8.4, platelet count 87. Sodium 134, BUN 61 creatinine 1.89. P atient states that in general he does not feel well. Anemia workup added. 08/28: Consults were added yesterday afternoon for [facility] and infectious disease. Patient has been started on IV vancomycin. He has had a slight bump in his renal function with BUN 63 creatinine 1.91. Cardiology has discontinued Zaroxolyn. Hemoglobin is 8.1 and anemia workup was ordered yesterday. Patient's blood pressures been 97/50 heart rate in the 70s and 80s. Patient is utilizing BiPAP when sleeping or at nighttime. During the day he is on 4 L nasal cannula with pulse ox 97%. Patient continues to complain of generalized fatigue and weakness and not feeling well in general. Cough is improved. 08/29: First blood culture Gram stain was positive for gram-positive cocci in clusters. Culture is showing no growth after 72 hours. He had a second blood culture obtained which was finalized with no growth at 5 days. A repeat blood culture was obtained yesterday and is status received. Bacteremia is possible contamination but patient is currently on vancomycin as advised by Dr. Valle. He has been seen by [facility] with recommendations for left lower extremity: Honey gel, border foam wrap with Toribio wrap to control swelling. Right lower extremity apply triad and rolled gauze and wrap with Toribio wrap. Legs are to be elevated for 30 minutes at least 3 times a day. Patient is seen today in rec liner with his legs elevated. He is off the BiPAP for now. He is utilizing BiPAP for nighttime and when sleeping. He has been afebrile, heart rate in the 70s, blood pressure 96/50. Repeat blood work reveals WBC 9.2, hemoglobin 8.1, platelet count 91. Sodium 133, potassium 3.3, chloride 90, CO2 34, BUN 67 creatinine 2.05.cardiology has discontinued Zaroxolyn and continue patient on Lasix 80 mg oral daily as well as spironolactone 12.5 mg daily. Patient to be transferred to [facility] floor with telemetry. 08/30: Patient was seen in consultation by hematology oncology due to concern of anemia with iron deficiency and possible myelodysplasia, this is likely related to any iron deficiency anemia due to chronic kidney disease, he may need to have some workup as an outpatient when the anemia is better, but at this point in time we'll continue treat his infection, continue to treat the patient supportive patient very closely, he may need to go back on iron infusion when the patient the infection is better, and he may need to go on erythropoietin according to hematology oncology down the line to treat both the anemia of chronic kidney disease and possible underlying MDS, to have some issues generalized weakness, patient not able template very well, he continues to be on IV diuretics, we will repeat his labs, patient will likely be transferred back to [facility] on the [place] in the next 1 or 2 days. 08/31: Patient is laying down in bed he appears to be in moderate respiratory distress since we cut down on his Lasix to 40 mg once every day, he did diurese about 300 mL in the back today after the oral Lasix, I will put the patient back on his BiPAP, we will switch the patient to Lasix 60 mg IV push every 12 hours, we'll consult pulmonary medicine, continue to monitor the patient input and output and daily weight, we will do a stat chest x-ray, nephrology consultation for acute on chronic kidney disease as well overall prognosis continue to be guarded patient is no code at this point in time we will continue the aggressive treatment. REVIEW OF SYSTEMS: Constitutional: No documented fever, no chills, no night sweats. No weight change. No weakness, fatigue or lethargy. No daytime sleepiness. HEENT: No headache. No blurred vision or double vision, no loss of vision. Chronic loss of Hearing, no ringing in the ears, no dizziness. No nasal drainage or congestion. No epistaxis. No sore throat. Lungs: positive for shortness of breathimproving, occasional cough, minimal sputum production. No wheezing. Reports dyspnea with activity. Cardiovascular: Denies chest pain, positive for lower extremity edema. No palpitations. No paroxysmal nocturnal dyspnea. No orthopnea. No lightheadedness or dizziness. No syncopal episodes. Abdominal: Denies abdominal pain. No nausea, vomiting. No diarrhea. No constipation. No bloody or tarry stools reports loss of appetite. Genitourinary: No dysuria, increased frequency, urgency. No urinary retention. Musculoskeletal: No myalgias. positive for muscle weakness, positive for gait dysfunction, positive for frequent falls. positive for back pain. No neck pain, bilateral hip pain Integumentary: No wounds, no lesions. No rash or pruritus. No unusual bruising. No change in hair or nails. Neurologic: No aphasia. No facial droop. Mild chronic change in mentation. No head injury. No headache. No paralysis. No paresthesia. Psychiatric: No depression. No anxiety. No mood swings. Endocrine: No abnormal blood sugars. No weight change. PHYSICAL EXAMINATION: General: 72-year-old male lying down in a recliner in no respiratory distress HEENT: Head is atraumatic, normocephalic, pupils were equal round reactive to light and recommendation, extraocular muscle movement were intact, sclera no nicteric, conjunctivae were pale, mucous membranes of the mouth are somewhat dry. Neck: Supple, no JVP, normal carotid upstroke bilaterally, no lymphadenopathy. Chest: Decreased breath sounds at the bases, few rhonchi, no expiratory wheezes, no chest wall tenderness, no intercostal retractions. Heart: First heart sound is normal, second heart sound is normal, there is systolic ejection murmur 2/6 located in the left sternal border. Abdomen: Soft, distended with abdomina wall edema and Ascites positive bowel sounds, obese. Extremities: There is +1 edema no calf tenderness DP +2 bilaterally, there is bilateral scabbed lesions in both shins , wrapped with kirlex wraps Neurologic examination: Patient is awake alert and oriented X 2, cranial nerves II-12 appear grossly intact, muscle power were 3out of 5 in upper extremities and 3/5 in bilateral lower extremities ASSESSMENT AND PLAN: 1. Acute hypoxemic respiratory failure due to acute on chronic diastolic heart failure and COPD wit RAMYA and OHS . Pulmonary evaluation stat chest x-ray, monitor input and output and daily weight, continue spironolactone 12.5 mg orally once every day, metoprolol 37.5 mg orally twice every day, I will restart the patient on Lasix 60 mg IV push every 12 hours. 2. COPD/moderate persistent asthma and not in exacerbation with chronic hypoxemic respiratory failure continue oxygen support continue DuoNeb 3 mg nebulization 4 times every day. Pulmonary consult 3. Paroxysmal atrial fibrillation/ Flutter. Continue patient on metoprolol 37.5 mg orally twice every day, on Xarelto 15 mg orally once every day 4. Hypertension and hypertensive cardiovascular disease. Continue patient on metoprolol 37.5 mg orally twice every day, monitor the patient blood pressure very closely. 5. Hyperlipidemia. Continue patient on atorvastatin 20 mg orally once every day, monitor lipid panel, keep LDL 55-70. 6. Enlarged prostate. Continue patient on tamsulosin 0.4 mg orally once every day. 7. Anxiety disorder. Continue patient on sertraline 100 mg orally once every day. 8. Neuropathy. Continue patient on gabapentin 300 mg at bedtime. 9. Thrombocytopenia. Likely related to alcoholic fatty liver disease and possible liver cirrhosis patient did have an MRCP in the past that showed fatty liver as well as mild splenomegaly cannot entirely rule out myelodysplasia, we will check US of the abdomen for possible ascites 10. Acute kidney injury on chronic kidney disease stage III a. Continue to monitor renal function, avoid nephrotoxic agents, check ultrasound of the kidneys, ordered not done it was limited due to confusion body habitus, nephrology consultation 11. Depression. we will continue with Sertraline 100 mg po daily 12. Wounds to the bilateral lower extremities/cellulitis: Nonhealing ulcer left calf, right lower extremity, chronic venous insufficiency. Consult with [facility] Center and infectious disease, continue with current local care, continue daptomycin.. 13. Gram-positive cocci in clusters bacteremia on daptomycin treatment repeated blood cultures are negative so far.ID is following 13. DVT prophylaxis. Continue Xarelto 15 mg po daily 14. GI prophylaxis. Continue patient on Protonix 40 mg orally once every day. 15. PT evaluation and social worker delinquency prevention consult. Discharge planning to return to [facility]. 16. DO NOT RESUSCITATE. 17. Obesity with obstructive sleep apnea and obesity hypoventilation syndrome. Continue patient on BiPAP. 18. Overall prognosis is guarded Objective - Vital Signs Vital signs: Vital Signs Temp 97.8 F 08/30/23 20:19 Pulse 80 08/31/23 08:41 Resp 18 08/30/23 20:19 BP 118/63 08/30/23 20:19 Pulse Ox 92 L 08/30/23 20:19 FiO2 30 08/31/23 03:41 Intake & Output 08/30/23 08/31/23 08/31/23 18:59 06:59 18:59 Intake Total 300 Output Total 802 1100 Balance -802 -800 Intake: Oral 300 Output: Urine 800 1100 Stool 2 Other: Voiding Method Indwelling Catheter Indwelling Catheter # Bowel Movements 1 0 - Labs CBC & Chem 7: 08/31/23 06:58 08/31/23 06:58 Labs: Abnormal Lab Results - Last 24 Hours (Table) 08/30/23 08/31/23 08/31/23 Range/Units 06:21 06:58 06:58 RBC (4.30-5.90) m/uL Hgb (13.0-17.5) gm/dL Hct (39.0-53.0) % RDW (11.5-15.5) % Plt Count (150-450) k/uL Lymphocytes # (1.0-4.8) k/uL Sodium 133 L 134 L (137-145) mmol/L Chloride 90 L 92 L (98-107) mmol/L Carbon Dioxide 34 H 35 H (22-30) mmol/L BUN 73 H 76 H (9-20) mg/dL Creatinine 2.05 H 1.76 H 1.74 H (0.66-1.25) mg/dL Glucose 103 H (74-99) mg/dL Calcium 8.3 L (8.4-10.2) mg/dL Alkaline Phosphatase 249 H 223 H (38-126) U/L Ammonia (<30) umol/L Total Protein 6.0 L 6.1 L (6.3-8.2) g/dL Albumin 2.9 L 3.1 L (3.5-5.0) g/dL 08/31/23 08/31/23 Range/Units 06:58 06:58 RBC 2.97 L (4.30-5.90) m/uL Hgb 8.2 L (13.0-17.5) gm/dL Hct 25.9 L (39.0-53.0) % RDW 18.3 H (11.5-15.5) % Plt Count 108 L (150-450) k/uL Lymphocytes # 0.8 L (1.0-4.8) k/uL Sodium (137-145) mmol/L Chloride (98-107) mmol/L Carbon Dioxide (22-30) mmol/L BUN (9-20) mg/dL Creatinine (0.66-1.25) mg/dL Glucose (74-99) mg/dL Calcium (8.4-10.2) mg/dL Alkaline Phosphatase (38-126) U/L Ammonia 45 H (<30) umol/L Total Protein (6.3-8.2) g/dL Albumin (3.5-5.0) g/dL Microbiology - Last 24 Hours (Table) 08/28/23 11:37 Blood Culture - Preliminary Blood
[2023-08-31] MEDS: FUROSEMIDE 10 MG/ML 10 ML VIAL IV SCH ×2 (11:19→21:04)
--- NOTE | 2023-08-31 11:45 | XR ---
EXAMINATION TYPE: XR chest 1V DATE OF EXAM: 08/31/2023 COMPARISON: 08/23/2023 HISTORY: Shortness of breath TECHNIQUE: Single frontal view of the chest is obtained. FINDINGS: There is cardiomegaly and pulmonary vascular congestion with interstitial edema unchanged compared to previous. Findings most consistent with marked CHF. IMPRESSION: No change in the marked acute cardiopulmonary disease most consistent with CHF.
[2023-08-31 14:44] LABS: Basophils # (A) 0.04 X 10*3/uL (0.00-0.10); Basophils % (A) 0.5 %; Eosinophils # (A) 0.29 X 10*3/uL (0.04-0.35); Eosinophils % (A) 3.4 %; HCT 25.5 % (39.6-50.0); HGB 7.4 d/dL (13.0-17.0); Lymphocytes # (A) 0.71 X 10*3/uL (0.90-5.00); Lymphocytes % (A) 8.4 %; MCH 26.1 pg (27.0-32.0); MCV 89.8 FL (80.0-97.0); Mean Platelet Volume 10.8 FL (9.5-12.2); Monocytes # (A) 0.81 X 10*3/uL (0.20-1.00); Monocytes % (A) 9.5 %; NRBC Per 100 WBC 0 X 10*3/uL (0.00-0.01); Neutrophils % (A) 77.6 %; Platelet Count 96 X 10*3/uL (140-440); RBC 2.84 X 10*6/uL (4.40-5.60); RDW 19.4 % (11.5-14.5)
--- NOTE | 2023-08-31 15:08 | P.NPCON ---
History of Present Illness - Reason for Consult Consult date: 08/31/23 chronic renal failure - Chief Complaint Shortness of breath and hypoxia - History of Present Illness 73-year-old gentleman coming to the hospital on 08/23/2023 with the above complaints. Poor historian, very combative today. History of chronic lung disease on CPAP at home. He comes in noncompliant with his CPAP and hypoxic. He has chronic kidney disease stage III a, baseline creatinine of 1.1-1.2 MG per DL. While in the hospital chest x-ray showed pulmonary vascular congestion, challenged with diuretics. He developed acute kidney injury with a peak creatinine of 2.05 MG per DL. Creatinine continues to improve. He has multiple episodes of a TIA with a creatinine of 1.5-1.7 MG per DL. Denies any NSAID use. No recent contrast studies. Review of Systems Constitutional: Reports as per HPI Past Medical History Past Medical History: Asthma, Chest Pain / Angina, GERD/Reflux, Hyperlipidemia, Hypertension, Osteoarthritis (OA), Pneumonia, Sleep Apnea/CPAP/BIPAP Additional Past Medical History / Comment(s): uses oxygen at night 2L, gout, in wheelchair or walker due to pain in left leg, poor circulation in legs History of Any Multi-Drug Resistant Organisms: None Reported Past Surgical History: Orthopedic Surgery, Tonsillectomy Additional Past Surgical History / Comment(s): LEFT WRIST ORIF, LEFT KNEE REPLACEMENT, bilateral cataract surgery Past Anesthesia/Blood Transfusion Reactions: No Reported Reaction Additional Past Anesthesia/Blood Transfusion Reaction / Comment(s): . Past Psychological History: Depression Additional Psychological History / Comment(s): Patient states he has slight confusion / memory loss. Smoking Status: Former smoker Past Alcohol Use History: None Reported Past Drug Use History: None Reported - Past Family History Mother Family Medical History: Congestive Heart Failure (CHF), Osteoarthritis (OA) Father Additional Family Medical History / Comment(s): FROM [place] Brother(s) Family Medical History: Cancer Additional Family Medical History / Comment(s): . Sister(s) Family Medical History: Deep Vein Thrombosis (DVT) Medications and Allergies Home Medications Medication Instructions Recorded Confirmed Type Sertraline [Zoloft] 100 mg PO HS 04/04/17 08/23/23 History Atorvastatin [Lipitor] 20 mg PO HS 07/14/19 08/23/23 History Tamsulosin [Flomax] 0.4 mg PO DAILY 07/14/19 08/23/23 History Ipratropium-Albuterol Nebulize 3 ml INHALATION RT-Q6H 08/19/19 08/23/23 History [Duoneb 0.5 mg-3 mg/3 ml Soln] Acetaminophen Tab [Tylenol] 500 mg PO Q6H PRN 03/26/23 08/23/23 History Cholecalciferol [Vitamin D3 (25 50 mcg PO DAILY 03/26/23 08/23/23 History Mcg = 1000 Iu)] Baclofen [Lioresal] 10 mg PO BID PRN tab 03/31/23 08/23/23 Rx Rivaroxaban [Xarelto] 15 mg PO W/SUPPER #30 tab 06/25/23 08/23/23 Rx Benzonatate [Tessalon Perles] 200 mg PO TID PRN cap 07/17/23 08/23/23 Rx Dapagliflozin Propanediol [Farxiga] 5 mg PO DAILY 08/07/23 08/23/23 History Magnesium Oxide [Mag-Ox] 400 mg PO DAILY 08/07/23 08/23/23 History Montelukast [Singulair] 10 mg PO HS 08/07/23 08/23/23 History Omeprazole [PriLOSEC] 20 mg PO DAILY 08/07/23 08/23/23 History Tirzepatide [Mounjaro] 2.5 mg SQ MO 08/07/23 08/23/23 History Budesonide [Pulmicort] 1 mg INHALATION RT-BID ml 08/11/23 08/23/23 Rx Furosemide [Lasix] 60 mg PO DAILY tab 08/11/23 08/23/23 Rx Gabapentin [Neurontin] 300 mg PO HS #3 cap 08/11/23 08/23/23 Rx Melatonin 10 mg PO HS PRN tab 08/11/23 08/23/23 Rx Spironolactone [Aldactone] 12.5 mg PO DAILY tab 08/11/23 08/23/23 Rx Ammonium Lactate Lotion 1 applic TOPICAL DAILY 08/23/23 08/23/23 History [Lac-Hydrin 12% Lotion] Metoprolol Tartrate [Lopressor] 37.5 mg PO BID 08/23/23 08/23/23 History allopurinoL 200 mg PO DAILY 08/23/23 08/23/23 History predniSONE [Deltasone] See Taper PO DAILY 08/23/23 08/23/23 History Allergies Allergy/AdvReac Type Severity Reaction Status Date / Time No Known Allergies Allergy Verified 08/23/23 10:52 Physical Exam Vitals: Vital Signs Temp Pulse Pulse Resp BP Pulse Ox FiO2 08/31/23 13:50 97.8 F 77 24 139/80 99 08/31/23 12:34 75 08/31/23 12:18 30 08/31/23 08:41 80 08/31/23 08:30 78 08/31/23 08:00 97.4 F L 77 24 120/69 94 L 08/31/23 03:41 30 08/30/23 23:33 30 08/30/23 21:05 76 08/30/23 21:00 30 08/30/23 20:52 72 08/30/23 20:19 97.8 F 64 18 118/63 92 L 08/30/23 15:58 73 08/30/23 15:51 70 Intake and Output 08/31/23 08/31/23 08/31/23 06:59 14:59 22:59 Intake Total 240 Output Total 1100 2102 Balance -860 -2102 Intake: Oral 240 Output: Urine 1100 2100 Stool 2 Other: Voiding Method Indwelling Catheter # Bowel Movements 0 No acute distress S1-S2 heard Decreased breath sounds Abdomen distended Edema Results - Lab Results Most recent lab results ABG pH 7.37 (7.35-7.45) 08/23/23 09:11 ABG pCO2 52 mmHg (35-45) H 08/23/23 09:11 ABG pO2 181 mmHg (83-108) H 08/23/23 09:11 ABG HCO3 30 mmol/L (21-25) H 08/23/23 09:11 ABG O2 Saturation 99.3 % (94-97) H 08/23/23 09:11 Calcium 8.7 mg/dL (8.4-10.2) 08/31/23 06:58 Magnesium 2.2 mg/dL (1.6-2.3) 08/31/23 06:58 08/31/23 06:58 08/31/23 06:58 Assessment and Plan Assessment: #1 acute kidney injury secondary to CRS. -Baseline creatinine 1.1-1.2 MG per DL. #2 chronic kidney disease stage III a suspected nephrosclerosis. #3 hypoxic respiratory failure on BiPAP #4 diastolic CHF #5 volume overload Plan: #1 renal function stable and improving. #2 agree with Lasix 60 mg IV twice a day. Also continue Aldactone. #3 avoid nephrotoxic agents and hypotensive episodes. #4 check urine analysis and urine electrolytes, renal ultrasound.
--- NOTE | 2023-08-31 16:28 | US ---
EXAMINATION TYPE: US kidneys/renal and bladder DATE OF EXAM: 08/31/2023 COMPARISON: Renal ultrasound 02/26/2021 CLINICAL INDICATION: Male, 73 years old with history of hydronephrosis. EXAM MEASUREMENTS: Right Kidney: 11.0 x 5.6 x 5.3 cm Left Kidney: 10.4 x 5.3 x 4.8 cm Technical limitations due to patient's body habitus. Right Kidney: Suspected extrarenal pelvis on the right, no evidence of dilated calyces. anechoic area upper pole = 3.1 x 4.1 x 3.2cm as on prior exam , likely renal cyst Left Kidney: limited evaluation, no evidence of hydronephrosis as visualized IMPRESSION: Right-sided extrarenal pelvis, without definitive evidence of hydronephrosis
[2023-08-31] MEDS: RIVAROXABAN 15 MG TAB PO SCH (17:01)
[2023-08-31 17:03] LABS: Appearance,Urine Clear (Clear); Bilirubin,Urine Negative (Negative); Blood,Urine Moderate (Negative); Color,Urine Colorless; Glucose,Urine (UA) Negative (Negative); Ketones,Urine Negative (Negative); Leukocyte Esterase,Urine Trace (Negative); Nitrite,Urine Negative (Negative); Protein,Urine Negative (Negative); RBC,Urine 42 /hpf (0-5); Specific Gravity,Urine 1.007 (1.001-1.035); Squamous Epithelial Cell,Urine <1 /hpf (0-4); Urobilinogen,Urine <2.0 mg/dL (<2.0); WBC,Urine 4 /hpf (0-5)
[2023-08-31] MEDS: MONTELUKAST 10 MG TAB PO SCH (21:04)
[2023-08-31] MEDS: LACTULOSE 20 GM/30 ML CUP PO SCH (21:04)
[2023-08-31] MEDS: GABAPENTIN 300 MG CAP PO SCH (21:04)
[2023-08-31] MEDS: SERTRALINE 100 MG TAB PO SCH (21:04)
--- NOTE | 2023-09-01 04:40 | P.CNPUL ---
History of Present Illness Consult date: 09/01/23 Requesting physician: Alison Leon Reason for consult: other (Respiratory failure) Chief complaint: Shortness of breath History of present illness: I am seeing this patient in new consultation today 09/01/2023 for acute hypoxemic and hypercapnic respiratory failure requiring BiPAP. Patient is a 73-year-old white male who is fairly debilitated, he has past medical history of asthma, obstructive sleep apnea with CPAP, chronic oxygen dependence, hyperlipidemia, hypertension, congestive heart failure, paroxysmal atrial fibrillation, and his remote ex-smoker over 30 years ago. Patient did have a recent hospitalization last month for diastolic congestive heart failure. Patient reportedly currently resides at a local [facility]. Patient was refusing to wear his CPAP at night. When he awoke, he was found to be confused with a pulse oximeter reading in the 70s. He was transferred to [facility] by EMS back on August 23. Chest x-ray on arrival was consistent with pulmonary edema. Patient is receiving Lasix 60 mg twice a day. Urine output has been adequate. Echocardiogram this admission shows a preserved left ventricular ejection fraction of 50-55%. Exam was otherwise limited. Most recent CBC from yesterday shows a WBC count of 7.1, hemoglobin 8.2, hematocrit 25.9, and pl atelets 108,000. Most recent BMP from yesterday shows sodium 134, potassium 3.5, chloride 92, serum bicarbonate 35, UN 76, creatinine 1.74, glucose 98. Ammonia level was elevated at 45, the patient's been started on lactulose. AST and ALP are not elevated. ALP 223. On arrival, the patient did have an isolated positive blood culture showing gram-positive cocci in clusters. Patient was initially started on vancomycin, but his renal function was poor, and he was switched to daptomycin. Repeat blood cultures have remained negative. Patient is currently sitting up in bed, on BiPAP with settings 12/5 and an FiO2 of 30%. He is achieving tidal volumes around 500 and respiratory rate is 25. He is still quite confused. Bilateral lower extremities are wrapped. Patient does have lower extremity wounds. He also has a urinary catheter, there was reportedly inserted for urinary retention. Urinalysis not concerning for UTI. Patient is afebrile. Hemodynamically stable at this time. Review of Systems REVIEW OF SYSTEMS: CONSTITUTIONAL: Denies any recent significant weight loss or weight gain. EYES: Denies change in vision. EARS, NOSE, MOUTH, THROAT: Denies headaches, denies sore throat. CARDIOVASCULAR: Denies chest pain, palpitations or syncopal episodes. Admits bilateral lower extremity swelling. RESPIRATORY: Denies cough, congestion or hemoptysis. Admits shortness of breath GASTROINTESTINAL: Denies change in appetite, abdominal pain, nausea and vomiting, or diarrhea GENITOURINARY: Denies hematuria, denies infections. MUSKULOSKELETAL: Denies pain, denies swelling. INTEGUMENTARY: Denies rash, denies eczema. Admits lower extremity wounds. NEUROLOGICAL: Denies recent memory loss, no recent seizure activity. PSYCHIATRIC: Denies anxiety, denies depression. HEMATOLOGIC/LYMPHATIC: Denies anemia, denies enlarged lymph node Past Medical History Past Medical History: Asthma, Chest Pain / Angina, GERD/Reflux, Hyperlipidemia, Hypertension, Osteoarthritis (OA), Pneumonia, Sleep Apnea/CPAP/BIPAP Additional Past Medical History / Comment(s): uses oxygen at night 2L, gout, in wheelchair or walker due to pain in left leg, poor circulation in legs History of Any Multi-Drug Resistant Organisms: None Reported Past Surgical History: Orthopedic Surgery, Tonsillectomy Additional Past Surgical History / Comment(s): LEFT WRIST ORIF, LEFT KNEE REPLACEMENT, bilateral cataract surgery Past Anesthesia/Blood Transfusion Reactions: No Reported Reaction Additional Past Anesthesia/Blood Transfusion Reaction / Comment(s): . Past Psychological History: Depression Additional Psychological History / Comment(s): Patient states he has slight confusion / memory loss. Smoking Status: Former smoker Past Alcohol Use History: None Reported Past Drug Use History: None Reported - Past Family History Mother Family Medical History: Congestive Heart Failure (CHF), Osteoarthritis (OA) Father Additional Family Medical History / Comment(s): FROM [place] Brother(s) Family Medical History: Cancer Additional Family Medical History / Comment(s): . Sister(s) Family Medical History: Deep Vein Thrombosis (DVT) Medications and Allergies Home Medications Medication Instructions Recorded Confirmed Type Sertraline [Zoloft] 100 mg PO HS 04/04/17 08/23/23 History Atorvastatin [Lipitor] 20 mg PO HS 07/14/19 08/23/23 History Tamsulosin [Flomax] 0.4 mg PO DAILY 07/14/19 08/23/23 History Ipratropium-Albuterol Nebulize 3 ml INHALATION RT-Q6H 08/19/19 08/23/23 History [Duoneb 0.5 mg-3 mg/3 ml Soln] Acetaminophen Tab [Tylenol] 500 mg PO Q6H PRN 03/26/23 08/23/23 History Cholecalciferol [Vitamin D3 (25 50 mcg PO DAILY 03/26/23 08/23/23 History Mcg = 1000 Iu)] Baclofen [Lioresal] 10 mg PO BID PRN tab 03/31/23 08/23/23 Rx Rivaroxaban [Xarelto] 15 mg PO W/SUPPER #30 tab 06/25/23 08/23/23 Rx Benzonatate [Tessalon Perles] 200 mg PO TID PRN cap 07/17/23 08/23/23 Rx Dapagliflozin Propanediol [Farxiga] 5 mg PO DAILY 08/07/23 08/23/23 History Magnesium Oxide [Mag-Ox] 400 mg PO DAILY 08/07/23 08/23/23 History Montelukast [Singulair] 10 mg PO HS 08/07/23 08/23/23 History Omeprazole [PriLOSEC] 20 mg PO DAILY 08/07/23 08/23/23 History Tirzepatide [Mounjaro] 2.5 mg SQ MO 08/07/23 08/23/23 History Budesonide [Pulmicort] 1 mg INHALATION RT-BID ml 08/11/23 08/23/23 Rx Furosemide [Lasix] 60 mg PO DAILY tab 08/11/23 08/23/23 Rx Gabapentin [Neurontin] 300 mg PO HS #3 cap 08/11/23 08/23/23 Rx Melatonin 10 mg PO HS PRN tab 08/11/23 08/23/23 Rx Spironolactone [Aldactone] 12.5 mg PO DAILY tab 08/11/23 08/23/23 Rx Ammonium Lactate Lotion 1 applic TOPICAL DAILY 08/23/23 08/23/23 History [Lac-Hydrin 12% Lotion] Metoprolol Tartrate [Lopressor] 37.5 mg PO BID 08/23/23 08/23/23 History allopurinoL 200 mg PO DAILY 08/23/23 08/23/23 History predniSONE [Deltasone] See Taper PO DAILY 08/23/23 08/23/23 History Allergies Allergy/AdvReac Type Severity Reaction Status Date / Time No Known Allergies Allergy Verified 08/23/23 10:52 Physical Exam Vitals: Vital Signs Temp Pulse Pulse Resp BP BP Pulse Ox 08/31/23 23:21 08/31/23 20:00 98.3 F 61 20 108/53 94 L 08/31/23 19:52 80 08/31/23 19:41 74 08/31/23 16:05 72 08/31/23 13:50 97.8 F 77 24 139/80 99 08/31/23 12:34 75 08/31/23 12:18 08/31/23 08:41 80 08/31/23 08:30 78 08/31/23 08:00 97.4 F L 77 24 120/69 94 L FiO2 08/31/23 23:21 30 08/31/23 20:00 08/31/23 19:52 08/31/23 19:41 30 08/31/23 16:05 30 08/31/23 13:50 08/31/23 12:34 08/31/23 12:18 30 08/31/23 08:41 08/31/23 08:30 08/31/23 08:00 Intake and Output 08/31/23 08/31/23 09/01/23 14:59 22:59 06:59 Intake Total 240 Output Total 2101 2100 Balance -2101 Intake: Oral 240 Output: Urine 2099 2100 Stool 2 Other: Voiding Method Indwelling Catheter Indwelling Catheter # Bowel Movements 1 GENERAL EXAM: Alert but disoriented, 73-year-old morbidly obese male, comfortable in no apparent distress. HEAD: Normocephalic and atraumatic EYES: Normal reaction of pupils, equal size. NOSE: Clear with pink turbinates. THROAT: No erythema or exudates. NECK: No masses, no JVD. CHEST: No chest wall deformity. LUNGS: Equal air entry with bibasilar inspiratory crackles. Mild expiratory wheezes heard throughout. Currently on BiPAP. No conversational dyspnea or accessory muscle use.. CVS: S1 and S2 normal with no audible murmur, regular rhythm. No extra heart sounds ABDOMEN obese abdomen, no hepatosplenomegaly, active bowel sounds, no guarding or rigidity. SPINE: No scoliosis or deformity SKIN: right lower extremity partial thickness ulceration, legs are wrapped with Toribio bandages CENTRAL NERVOUS SYSTEM: No focal deficits, tone is normal in all 4 extremities. EXTREMITIES: There is bilateral lower extremity nonpitting edema. No clubbing, or cyanosis. Peripheral pulses are intact. Results - Laboratory Findings CBC and BMP: 09/01/23 06:40 09/01/23 06:40 ABG ABG pH 7.37 (7.35-7.45) 08/23/23 09:11 ABG pCO2 52 mmHg (35-45) H 08/23/23 09:11 ABG pO2 181 mmHg (83-108) H 08/23/23 09:11 ABG O2 Saturation 99.3 % (94-97) H 08/23/23 09:11 PT/INR, D-dimer PT 11.7 sec (9.0-12.0) 08/23/23 08:33 INR 1.1 (<1.2) 08/23/23 08:33 Abnormal lab findings: Abnormal Labs 08/23/23 08/23/23 08/23/23 08:33 08:33 08:33 WBC 13.5 H RBC 3.50 L Hgb 9.3 L Hct 30.7 L MCH MCHC 30.3 L RDW 18.8 H Plt Count 133 L Neutrophils # 11.3 H Lymphocytes # Retic Count Haptoglobin APTT 30.2 H ABG pCO2 ABG pO2 ABG HCO3 ABG Total CO2 ABG O2 Saturation Sodium 136 L Potassium Chloride Carbon Dioxide BUN 43 H Creatinine Glucose Calcium Magnesium 2.5 H Iron % Saturation Total Bilirubin Alkaline Phosphatase 168 H Ammonia C-Reactive Protein Total Protein Total Protein (PEP) Albumin 3.4 L Albumin (PEP) Ewhep-1-Igrkssinm RBC Folate Procalcitonin Urine Blood Ur Leukocyte Esterase Urine RBC Free [place] LC, Quant Free Lambda LC, Quant 08/23/23 08/24/23 08/24/23 09:11 07:22 07:22 WBC 11.5 H RBC 3.20 L Hgb 8.7 L Hct 28.5 L MCH MCHC 30.4 L RDW 18.8 H Plt Count 96 L Neutrophils # 9.3 H Lymphocytes # Retic Count Haptoglobin APTT ABG pCO2 52 H ABG pO2 181 H ABG HCO3 30 H ABG Total CO2 31 H ABG O2 Saturation 99.3 H Sodium Potassium Chloride Carbon Dioxide 31 H BUN 46 H Creatinine Glucose Calcium Magnesium Iron % Saturation Total Bilirubin Alkaline Phosphatase 136 H Ammonia C-Reactive Protein Total Protein 6.0 L Total Protein (PEP) Albumin 3.1 L Albumin (PEP) Uuvqj-5-Torzkobqt RBC Folate Procalcitonin Urine Blood Ur Leukocyte Esterase Urine RBC Free [place] LC, Quant Free Lambda LC, Quant 08/25/23 08/25/23 08/26/23 07:23 07:23 08:01 WBC 16.4 H RBC 3.09 L 3.22 L Hgb 8.4 L 8.7 L Hct 27.5 L 28.9 L MCH MCHC 30.6 L 30.0 L RDW 18.8 H 18.5 H Plt Count 103 L 86 L Neutrophils # Lymphocytes # Retic Count Haptoglobin APTT ABG pCO2 ABG pO2 ABG HCO3 ABG Total CO2 ABG O2 Saturation Sodium Potassium Chloride Carbon Dioxide 31 H BUN 49 H Creatinine 1.51 H Glucose Calcium Magnesium Iron % Saturation Total Bilirubin 1.4 H Alkaline Phosphatase 164 H Ammonia C-Reactive Protein Total Protein 6.0 L Total Protein (PEP) Albumin 3.1 L Albumin (PEP) Oykme-0-Ujmcrcaot RBC Folate Procalcitonin Urine Blood Ur Leukocyte Esterase Urine RBC Free [place] LC, Quant Free Lambda LC, Quant 08/26/23 08/27/23 08/27/23 08:01 10:35 10:35 WBC 13.3 H RBC 3.05 L Hgb 8.4 L Hct 26.9 L MCH MCHC RDW 18.4 H Plt Count 87 L Neutrophils # Lymphocytes # Retic Count Haptoglobin APTT ABG pCO2 ABG pO2 ABG HCO3 ABG Total CO2 ABG O2 Saturation Sodium 136 L 134 L Potassium Chloride 96 L 95 L Carbon Dioxide 31 H 33 H BUN 54 H 61 H Creatinine 1.70 H 1.89 H Glucose 115 H 135 H Calcium 8.1 L Magnesium Iron % Saturation Total Bilirubin 1.6 H Alkaline Phosphatase 177 H 199 H Ammonia C-Reactive Protein Total Protein 6.0 L Total Protein (PEP) Albumin 3.2 L 3.0 L Albumin (PEP) Oxsvk-4-Ghqxbahdj RBC Folate Procalcitonin Urine Blood Ur Leukocyte Esterase Urine RBC Free [place] LC, Quant Free Lambda LC, Quant 08/27/23 08/27/23 08/27/23 10:35 15:01 15:01 WBC RBC Hgb Hct MCH MCHC RDW Plt Count Neutrophils # Lymphocytes # Retic Count 3.1 H Haptoglobin APTT ABG pCO2 ABG pO2 ABG HCO3 ABG Total CO2 ABG O2 Saturation Sodium Potassium Chloride Carbon Dioxide BUN Creatinine Glucose Calcium Magnesium Iron 15 L % Saturation 3.98 L Total Bilirubin Alkaline Phosphatase Ammonia C-Reactive Protein Total Protein Total Protein (PEP) Albumin Albumin (PEP) Qlxas-9-Soqcqitxv RBC Folate 1,151 H Procalcitonin Urine Blood Ur Leukocyte Esterase Urine RBC Free [place] LC, Quant Free Lambda LC, Quant 08/27/23 08/28/23 08/28/23 15:01 06:52 06:52 WBC RBC 2.96 L Hgb 8.1 L Hct 26.1 L MCH MCHC RDW 18.5 H Plt Count 81 L Neutrophils # Lymphocytes # Retic Count Haptoglobin 230.0 H APTT ABG pCO2 ABG pO2 ABG HCO3 ABG Total CO2 ABG O2 Saturation Sodium 132 L Potassium 3.2 L Chloride 93 L Carbon Dioxide BUN 63 H Creatinine 1.91 H Glucose 106 H Calcium 8.0 L Magnesium Iron % Saturation Total Bilirubin Alkaline Phosphatase 215 H Ammonia C-Reactive Protein Total Protein 5.8 L Total Protein (PEP) 5.7 L Albumin 2.8 L Albumin (PEP) 3.2 L Hweth-3-Mpazakvuu 0.50 H RBC Folate Procalcitonin Urine Blood Ur Leukocyte Esterase Urine RBC Free [place] LC, Quant 7.93 H Free Lambda LC, Quant 5.67 H 08/28/23 08/28/23 08/29/23 11:37 11:37 07:28 WBC RBC Hgb Hct MCH MCHC RDW Plt Count Neutrophils # Lymphocytes # Retic Count Haptoglobin APTT ABG pCO2 ABG pO2 ABG HCO3 ABG Total CO2 ABG O2 Saturation Sodium 133 L Potassium 3.3 L Chloride 90 L Carbon Dioxide 34 H BUN 67 H Creatinine 2.05 H Glucose 108 H Calcium 8.0 L Magnesium Iron % Saturation Total Bilirubin Alkaline Phosphatase 232 H Ammonia C-Reactive Protein 7.0 H Total Protein 6.0 L Total Protein (PEP) Albumin 3.0 L Albumin (PEP) Rryzv-0-Saoepiloc RBC Folate Procalcitonin 0.33 H Urine Blood Ur Leukocyte Esterase Urine RBC Free [place] LC, Quant Free Lambda LC, Quant 09/29/23 09/30/23 09/30/23 07:28 06:21 06:21 WBC RBC 2.97 L Hgb 8.1 L Hct 26.3 L MCH MCHC 30.6 L RDW 18.3 H Plt Count 91 L Neutrophils # Lymphocytes # Retic Count 2.94 H Haptoglobin APTT ABG pCO2 ABG pO2 ABG HCO3 ABG Total CO2 ABG O2 Saturation Sodium Potassium Chloride Carbon Dioxide BUN Creatinine 2.04 H Glucose Calcium Magnesium Iron % Saturation Total Bilirubin Alkaline Phosphatase Ammonia C-Reactive Protein Total Protein Total Protein (PEP) Albumin Albumin (PEP) Igyix-5-Moxlxxxoc RBC Folate Procalcitonin Urine Blood Ur Leukocyte Esterase Urine RBC Free [place] LC, Quant Free Lambda LC, Quant 08/30/23 08/30/23 08/31/23 06:21 06:21 06:58 WBC RBC 2.84 L Hgb 7.4 L Hct 25.5 L MCH 26.1 L MCHC 29.0 L RDW 19.4 H Plt Count 96 L Neutrophils # Lymphocytes # 0.71 L Retic Count Haptoglobin APTT ABG pCO2 ABG pO2 ABG HCO3 ABG Total CO2 ABG O2 Saturation Sodium 133 L Potassium Chloride 90 L Carbon Dioxide 34 H BUN 73 H Creatinine 2.05 H 1.76 H Glucose 103 H Calcium 8.3 L Magnesium Iron % Saturation Total Bilirubin Alkaline Phosphatase 249 H Ammonia C-Reactive Protein Total Protein 6.0 L Total Protein (PEP) Albumin 2.9 L Albumin (PEP) Befcc-0-Gsenxndmd RBC Folate Procalcitonin Urine Blood Ur Leukocyte Esterase Urine RBC Free [place] LC, Quant Free Lambda LC, Quant 08/31/23 08/31/23 08/31/23 06:58 06:58 06:58 WBC RBC 2.97 L Hgb 8.2 L Hct 25.9 L MCH MCHC RDW 18.3 H Plt Count 108 L Neutrophils # Lymphocytes # 0.8 L Retic Count Haptoglobin APTT ABG pCO2 ABG pO2 ABG HCO3 ABG Total CO2 ABG O2 Saturation Sodium 134 L Potassium Chloride 92 L Carbon Dioxide 35 H BUN 76 H Creatinine 1.74 H Glucose Calcium Magnesium Iron % Saturation Total Bilirubin Alkaline Phosphatase 223 H Ammonia 45 H C-Reactive Protein Total Protein 6.1 L Total Protein (PEP) Albumin 3.1 L Albumin (PEP) Lgbcr-9-Mqjbrcokq RBC Folate Procalcitonin Urine Blood Ur Leukocyte Esterase Urine RBC Free [place] LC, Quant Free Lambda LC, Quant 08/31/23 14:55 WBC RBC Hgb Hct MCH MCHC RDW Plt Count Neutrophils # Lymphocytes # Retic Count Haptoglobin APTT ABG pCO2 ABG pO2 ABG HCO3 ABG Total CO2 ABG O2 Saturation Sodium Potassium Chloride Carbon Dioxide BUN Creatinine Glucose Calcium Magnesium Iron % Saturation Total Bilirubin Alkaline Phosphatase Ammonia C-Reactive Protein Total Protein Total Protein (PEP) Albumin Albumin (PEP) Bfzur-3-Zzyehxaqe RBC Folate Procalcitonin Urine Blood Moderate H Ur Leukocyte Esterase Trace H Urine RBC 42 H Free [place] LC, Quant Free Lambda LC, Quant - Diagnostic Findings Chest x-ray: image reviewed Assessment and Plan Assessment: Acute exacerbation of diastolic CHF, with significant cardiomegaly, pulmonary v ascular congestion, and small effusions. Echocardiogram from 08/25/23 showed ejection fraction of left ventricle in the order of 50-55%, and otherwise was a limited exam Acute exacerbation of chronic bronchial asthma/COPD Acute on chronic hypoxemic and hypercapnic respiratory failure, currently on BiPAP Bacteremia, original blood cultures were positive with gram-positive cocci in clusters. Repeat cultures have been negative so far. Paroxysmal A. fib maintenance and he is admitted on anticoagulation with with Xarelto Acute on chronic kidney disease, patient has a history of chronic kidney disease stage III, creatinine is improving and the creatinine is down to 1.6 Acute metabolic encephalopathy, probably related to a combination of hypercapnic respiratory failure and possibly hyperammonemia Anemia of chronic disease. Thrombocytopenia Obstructive sleep apnea syndrome, maintained on CPAP. Chronic venous stasis and right lower extremity wounds Paroxysmal atrial fibrillation. Benign essential hypertension. History of hyperlipidemia. Morbid obesity, with a BMI of 45.7 kg/m Plan: Patient's medications, labs, chest x-ray reviewed Continue BiPAP at bedtime Receiving Lasix 60 mg twice a day Continue bronchodilators, formoterol, budesonide Add Solu-Medrol Patient is currently covered on daptomycin per infectious disease. Repeat blood cultures have been negative. Procalcitonin level was elevated at 0.33 Wound care is following We will continue to follow, and further recommendations are forthcoming I have personally seen and examined the patient, performed the documentation and the assessment and plan as written. Number of minutes spent on the visit:20 joint evaluation that was done along with the nurse practitioner. This evaluation was done in more than 30 minutes. In summary, the patient has an acute on top of chronic hypoxic respiratory failure. He was given a BiPAP at time of discharge and currently is off the BiPAP and is using oxygen at 4 L/m nasal cannula. Chest x-ray is consistent with fluid overload and CHF and the patient is currently on IV Lasix 60 mg IV every 12 hours. The patient has produced excellent urine output. He was 1.6 L negative fluid balance for yesterday and he has another 4.3 L negative fluid balance for today. He has diastolic heart failure and fluid overload. Awaiting repeat blood cultures. White cell count isn't elevated and the patient is chronically anemic. Continue bronchodilators. Continue the rest of the home medications. We'll continue to follow. Time with Patient: Greater than 30
[2023-09-01] MEDS: ACETAMINOPHEN TAB 500 MG TAB PO PRN (05:02)
[2023-09-01] MEDS: methylPREDNISolone SOD SUCCI 125 MG/2 ML VIAL IV SCH ×4 (05:03→23:26)
[2023-09-01 08:02] LABS: ALT 21 U/L (4-49); AST 27 U/L (17-59); African American GFR (CKD) 46 (>60 ml/min/1.73 sqM); Albumin 3.1 g/dL (3.5-5.0); Alkaline Phosphatase 205 U/L (38-126); Anion Gap 8 mmol/L; Blood Urea Nitrogen 71 mg/dL (9-20); Calcium 9.1 mg/dL (8.4-10.2); Carbon Dioxide 38 mmol/L (22-30); Chloride 90 mmol/L (98-107); Globulin 3.1 g/dL; Glucose 101 mg/dL (74-99); Non-African American GFR(CKD) 40 (>60 ml/min/1.73 sqM); Potassium 3.2 mmol/L (3.5-5.1); Sodium 136 mmol/L (137-145); Total Bilirubin 1.4 mg/dL (0.2-1.3); Total Protein 6.2 g/dL (6.3-8.2)
[2023-09-01] MEDS: FORMOTEROL FUMARATE 20 MCG/2 ML NEBU INHALATION SCH ×2 (08:05→19:39)
[2023-09-01] MEDS: BUDESONIDE 1 MG/2 ML NEBU INHALATION SCH ×2 (08:05→19:39)
[2023-09-01] MEDS: IPRATROPIUM-ALBUTEROL 3 ML NEB INHALATION SCH ×4 (08:05→19:39)
[2023-09-01] MEDS ORDERED: POTASSIUM CHLORIDE ER 20 MEQ TAB.ER PO STA (08:55)
--- NOTE | 2023-09-01 08:55 | P.PN ---
Subjective Patient is seen in follow-up for acute kidney injury and chronic kidney disease. Renal function fairly stable. On IV Lasix. Nonoliguric. No vomiting or diarrhea. Oral intake fair. Vital signs are stable. General: No acute distress. HEENT: Oxygen mask noted. LUNGS: No audible rhonchi or wheezes. HEART: Rate and Rhythm are regular. ABDOMEN: Nontender, obese. EXTREMITITES: 1+ edema. Objective - Vital Signs Vital signs: Vital Signs Temp 97.4 F L 09/01/23 07:45 Pulse 76 09/01/23 08:30 Resp 21 09/01/23 07:45 BP 113/62 09/01/23 07:45 Pulse Ox 90 L 09/01/23 08:06 FiO2 30 09/01/23 04:07 Intake & Output 08/31/23 09/01/23 09/01/23 18:59 06:59 18:59 Intake Total 120 120 Output Total 2702 1900 Balance -6372 -1780 Intake: Oral 120 120 Output: Urine 2700 1900 Stool 2 Other: Voiding Method Indwelling Catheter Indwelling Catheter # Bowel Movements 1 - Labs CBC & Chem 7: 08/31/23 06:58 09/01/23 06:40 Labs: Abnormal Lab Results - Last 24 Hours (Table) 08/30/23 08/31/23 09/01/23 Range/Units 06:21 14:55 06:40 RBC 2.84 L (4.40-5.60) X 10*6/uL Hgb 7.4 L (13.0-17.0) d/dL Hct 25.5 L (39.6-50.0) % MCH 26.1 L (27.0-32.0) pg MCHC 29.0 L (32.0-37.0) d/dL RDW 19.4 H (11.5-14.5) % Plt Count 96 L (140-440) X 10*3/uL Lymphocytes # 0.71 L (0.90-5.00) X 10*3/uL Sodium 136 L (137-145) mmol/L Potassium 3.2 L (3.5-5.1) mmol/L Chloride 90 L (98-107) mmol/L Carbon Dioxide 38 H (22-30) mmol/L BUN 71 H (9-20) mg/dL Creatinine 1.68 H (0.66-1.25) mg/dL Glucose 101 H (74-99) mg/dL Total Bilirubin 1.4 H (0.2-1.3) mg/dL Alkaline Phosphatase 205 H (38-126) U/L Total Protein 6.2 L (6.3-8.2) g/dL Albumin 3.1 L (3.5-5.0) g/dL Urine Blood Moderate H (Negative) Ur Leukocyte Esterase Trace H (Negative) Urine RBC 42 H (0-5) /hpf Microbiology - Last 24 Hours (Table) 08/28/23 11:37 Blood Culture - Preliminary Blood Assessment and Plan Plan: Assessment: 1. Acute kidney injury secondary to ATN secondary to cardiorenal syndrome. Renal function stable. Nonoliguric. No proteinuria on UA. No hydronephrosis noted on kidney ultrasound. 2. Chronic kidney disease stage III A with baseline creatinine 1-1.5. Suspect nephrosclerosis. 3. Acute on chronic diastolic CHF. 4. Volume overload. 5. Acute hypoxic respiratory failure. 6. Hypokalemia from diuresis. 7. Gram-positive bacteremia with lower extremity cellulitis on antibiotics. ID following. 8. Anemia of chronic kidney disease. Plan: Maintain IV Lasix. Low-salt diet and 1500 mL fluid restriction. Replace potassium. Add Aranesp. Will benefit from [id number] once infection resolves.
[2023-09-01] MEDS: SPIRONOLACTONE 25 MG TAB PO SCH (09:01)
[2023-09-01] MEDS: TAMSULOSIN 0.4 MG CAP.ER.24H PO SCH (09:01)
[2023-09-01] MEDS: METOPROLOL TARTRATE 12.5 MG TAB PO SCH ×2 (09:01→20:50)
[2023-09-01] MEDS: PANTOPRAZOLE 40 MG TABLET PO SCH (09:01)
[2023-09-01] MEDS: FUROSEMIDE 10 MG/ML 10 ML VIAL IV SCH ×2 (09:02→20:51)
[2023-09-01] MEDS: NYSTATIN 100,000 UNIT/ML SUSP 500,000 UNIT/5 ML CUP PO SCH ×3 (09:02→20:50)
[2023-09-01] MEDS: SODIUM CHLORIDE 0.9% IVPB SCH (09:02)
[2023-09-01] MEDS: DAPTOMYCIN IVPB SCH (09:02)
[2023-09-01] MEDS: CHOLECALCIFEROL 25 MCG (1000 IU) TABLET PO SCH (09:02)
[2023-09-01] MEDS: allopurinoL 100 MG TAB PO SCH (09:02)
[2023-09-01] MEDS: NYSTATIN 100,000 UNIT/GM POWD 15 GM TOPICAL SCH ×2 (09:03→20:55)
[2023-09-01] MEDS: LACTULOSE 20 GM/30 ML CUP PO SCH ×2 (09:03→20:51)
[2023-09-01 09:36] LABS: Urine Creatinine 20.8 mg/dL (39.0-259.0)
[2023-09-01] MEDS ORDERED: DARBEPOETIN ALFA 40 MCG/0.4 ML SYRINGE SQ SCH (10:00)
[2023-09-01 10:59] LABS: Basophils % (A) 0.3 %; Eosinophils % (A) 1.8 %; HCT 26.4 % (39.6-50.0); HGB 7.7 d/dL (13.0-17.0); Lymphocytes # (A) 0.51 X 10*3/uL (0.90-5.00); Lymphocytes % (A) 5.8 %; MCH 26.3 pg (27.0-32.0); MCHC 29.2 d/dL (32.0-37.0); MCV 90.1 FL (80.0-97.0); Mean Platelet Volume 9.9 FL (9.5-12.2); Monocytes % (A) 6.6 %; NRBC Per 100 WBC 0 X 10*3/uL (0.00-0.01); Neutrophils # (A) 7.44 X 10*3/uL (1.80-7.70); Platelet Count 127 X 10*3/uL (140-440); RBC 2.93 X 10*6/uL (4.40-5.60); RDW 19.5 % (11.5-14.5); WBC 8.76 X 10*3/uL (4.50-10.00)
[2023-09-01 11:00] LABS: Basophils # (A) 0.03 X 10*3/uL (0.00-0.10); Eosinophils # (A) 0.16 X 10*3/uL (0.04-0.35); Monocytes # (A) 0.58 X 10*3/uL (0.20-1.00)
[2023-09-01] MEDS: HYDROPHILIC CREAM 180 GM TUBE TOPICAL SCH (12:03)
--- NOTE | 2023-09-01 13:39 | P.PN ---
Subjective Progress Note Date: 09/01/23 Principal diagnosis: acute pulmonary edema At today's visit patient is resting comfortably in bed. He is reporting shortness of breath and cough. Counts stable. Patient afebrile. Continues on IV antibiotics. Objective - Vital Signs Vital signs: Vital Signs Temp 97.6 F 09/01/23 12:50 Pulse 66 09/01/23 12:50 Resp 24 09/01/23 12:50 BP 111/60 09/01/23 12:50 Pulse Ox 95 09/01/23 12:50 FiO2 30 09/01/23 04:07 Intake & Output 08/31/23 09/01/23 09/01/23 18:59 06:59 18:59 Intake Total 120 120 Output Total 2702 1900 Balance -2582 -1780 Intake: Oral 120 120 Output: Urine 2700 1900 Stool 2 Other: Voiding Method Indwelling Catheter Indwelling Catheter Indwelling Catheter # Bowel Movements 1 - Constitutional General appearance: Present: no acute distress, obese - EENT Eyes: Present: anicteric sclerae, EOMI ENT: Present: hearing grossly normal - Respiratory Details: breathing even and unlabored - Cardiovascular Details: skin warm and dry - Integumentary Integumentary: Absent: cyanotic, jaundiced - Musculoskeletal Musculoskeletal: Present: generalized weakness - Psychiatric Psychiatric: Present: A&O x's 3, appropriate affect, intact judgment & insight - Labs CBC & Chem 7: 09/01/23 06:40 09/01/23 06:40 Labs: Abnormal Lab Results - Last 24 Hours (Table) 08/30/23 08/30/23 08/31/23 Range/Units 06:21 06:21 14:55 RBC 2.84 L (4.40-5.60) X 10*6/uL Hgb 7.4 L (13.0-17.0) d/dL Hct 25.5 L (39.6-50.0) % MCH 26.1 L (27.0-32.0) pg MCHC 29.0 L (32.0-37.0) d/dL RDW 19.4 H (11.5-14.5) % Plt Count 96 L (140-440) X 10*3/uL Lymphocytes # 0.71 L (0.90-5.00) X 10*3/uL Sodium (137-145) mmol/L Potassium (3.5-5.1) mmol/L Chloride (98-107) mmol/L Carbon Dioxide (22-30) mmol/L BUN (9-20) mg/dL Creatinine (0.66-1.25) mg/dL Glucose (74-99) mg/dL Erythropoietin 121.43 H (2.00-30.00) mIU/mL Total Bilirubin (0.2-1.3) mg/dL Alkaline Phosphatase (38-126) U/L Total Protein (6.3-8.2) g/dL Albumin (3.5-5.0) g/dL Urine Blood (Negative) Ur Leukocyte Esterase (Negative) Urine RBC (0-5) /hpf Ur Random Microalbumin 3.0 H (0.0-1.9) mg/dL U Creat (Microalbumin) 20.8 L (39.0-259.0) mg/dL Microalb/Creat Ratio 144 H (0-30) mg/g Cr 08/31/23 09/01/23 09/01/23 Range/Units 14:55 06:40 06:40 RBC 2.93 L (4.40-5.60) X 10*6/uL Hgb 7.7 L (13.0-17.0) d/dL Hct 26.4 L (39.6-50.0) % MCH 26.3 L (27.0-32.0) pg MCHC 29.2 L (32.0-37.0) d/dL RDW 19.5 H (11.5-14.5) % Plt Count 127 L (140-440) X 10*3/uL Lymphocytes # 0.51 L (0.90-5.00) X 10*3/uL Sodium 136 L (137-145) mmol/L Potassium 3.2 L (3.5-5.1) mmol/L Chloride 90 L (98-107) mmol/L Carbon Dioxide 38 H (22-30) mmol/L BUN 71 H (9-20) mg/dL Creatinine 1.68 H (0.66-1.25) mg/dL Glucose 101 H (74-99) mg/dL Erythropoietin (2.00-30.00) mIU/mL Total Bilirubin 1.4 H (0.2-1.3) mg/dL Alkaline Phosphatase 205 H (38-126) U/L Total Protein 6.2 L (6.3-8.2) g/dL Albumin 3.1 L (3.5-5.0) g/dL Urine Blood Moderate H (Negative) Ur Leukocyte Esterase Trace H (Negative) Urine RBC 42 H (0-5) /hpf Ur Random Microalbumin (0.0-1.9) mg/dL U Creat (Microalbumin) (39.0-259.0) mg/dL Microalb/Creat Ratio (0-30) mg/g Cr Microbiology - Last 24 Hours (Table) 08/28/23 11:37 Blood Culture - Preliminary Blood Assessment and Plan (1) Bicytopenia Current Visit: Yes Status: Acute Code(s): D75.89 - OTHER SPECIFIED DISEASES OF BLOOD AND BLOOD-FORMING ORGANS SNOMED Code(s): 91521803 Plan: . Bicytopenia: -Consult was placed for bicytopenia, with some worsening of counts from baseline noted during this admission. Concern is for a primary bone marrow disorder such as MDS - While an underlying marrow dysfunction cannot be ruled out at this time, the patient actually has has other, very reasonable etiologies, for his findings. He has CKD, as well as chronic ongoing inflammation related to his leg wounds, which can definitely cause anemia of this degree. In addition, in a patient with CKD and chronic inflammation, a ferritin in this range, with markedly low iron saturation could still be compatible with iron deficiency. The patient does have risk factors for blood loss, with ongoing anticoagulation, and a known history of H pylori and Kim's esophagus. - In addition his B12 is borderline at 329. I will check an MMA to evaluate for functional B12 deficiency. Result pending - Therefore in this patient, I would recommend iron supplementation ( IV iron preferred once active infection is ruled out or resolved), as well as B12 supplementation, if indicated per MMA. If hemoglobin is still consistently below 9-9.5 with the above ( and improvement in the inflammation), it would be reasonable to consider DALLIN for anemia of chronic kidney disease. This would be quite appropriate in terms of management, if the patient has an underlying component of MDS - SPEP revealed no monoclonal paraprotein. K/L ratio normal, 1.41. If counts do not recover once he acutely recovers, further workup would be warranted - Continue to monitor and transfuse to keep hemoglobin greater than 7 - Similarly the mild thrombocytopenia could be related to his hepatic steatosis and splenomegaly, with some transient worsening due to current inflammation/infection as well as CHF ( which will increase hepatic and splenic congestion). Platelets are well within a safe range and does not require any intervention. Continue to monitor. I would anticipate that they will likely improve as his acute condition resolves Plan: Defer to the admitting service for management of his other medical problems
[2023-09-01] MEDS ORDERED: DEXTROSE 50% SYRINGE 50 ML IVP PRN ×2 (13:46)
--- NOTE | 2023-09-01 13:52 | P.PN ---
Subjective Progress Note Date: 09/01/23 HISTORY OF PRESENT ILLNESS: This is a 73-year-old male with a previous medical history significant for hypertension and hypertensive cardiovascular disease, hyperlipidemia, obesity with obstructive sleep apnea and obesity hypoventilation syndrome, chronic diastolic heart failure, asthma, hypothyroidism, anxiety and depressive disorder, peripheral neuropathy, patient was recently discharged from [facility] after he was admitted to the hospital for acute diastolic heart failure and pulmonary edema, and he was discharged back to [facility] on the , patient was doing fine and he was seen on Friday he was doing fine suddenly developed to have a significant weeping from both lower extremities despite taken spironolactone as well as Lasix and Farxiga, patient has been on oxygen at 4 L Cannula, patient weight has been increased, with increased weeping from both lower extremities, the nursing staff came to see the patient in the morning and he was unresponsive with oxygen saturation in the low 80s, 911 was called and the patient was. On the high flow oxygen he went up to 88%, patient was transported to the emergency department at [facility], had a chest x- ray that showed bulbar edema, he was placed on a BiPAP, with Lasix 40 mg IV push, he felt much better he is sitting down in bed, he continues to be somewhat short of breath, he continues to have significant swelling in both lower extremities with minimal denuded blister in the left lower extremity, he does appear to have a chronic stasis edema, patient appears to be more awake and alert at the time of evaluation in the ER. Patient will be admitted to the hospital for acute diastolic heart failure with The BiPAP, Would Be Started on Lasix 80 Mg IV Push Every 12 Hours. 08/24: Patient is feeling better today, he continues to be on 4 L nasal cannula, he denies any chest pain, isosorbide, uses the BiPAP on and off, he is diuresing with Lasix 80 mg IV push every 12 hours, he is continued for sick at 10 mg every day, spironolactone 25 mg once every day, monitor the patient input and output and daily weight, follow the patient very closely. Cardiology is to see the patient as he is complaining of chest pin suggestive of CAD 08/25: Patient continues to have slow improvement of his breathing status. Patient is on BiPAP during the night with pulse ox of 94%, currently on 4 L nasal cannula with pulse ox of 97%. Heart rate is mostly in the 50s and 60s, blood pressure 104/56. Repeat blood work reveals WBC 10.1, hemoglobin 8.4, platelet count 103. Sodium 138, potassium 3.9, BUN 49 creatinine 1.51. CO2 is 31. Limited echocardiogram reveals EF of 50-55%. Patient has a negative fluid balance. Weights do not appear to be accurate. Cardiology has decreased frequency of IV Lasix 80 mg 2 once daily and continued Zaroxolyn for today. 08/26: Patient has been seen by cardiology and IV Lasix has been transitioned to oral at 80 mg daily and continued on Zaroxolyn 5 mg daily. He has had increase in his BUN to 54 and creatinine 1.7. His breathing status seems to be stable. He is using BiPAP when sleeping at nighttime and on nasal cannula during the day at 4 L. His heart rate is running in the 70s, blood pressure 121/72. Other blood work reveals hemoglobin is stable at 8.7, WBC 16.4 platelet count 86. 08/27: Patient has been seen by cardiology today with recommendations to continue oral Lasix at 80 mg daily and metolazone 5 mg daily. Blood pressures been on the soft side 94/52, heart rate in the 60s and 70s. He has been afebrile, pulse ox 90% on 4 L nasal cannula. Repeat blood work reveals WBC 13.3, hemoglobin 8.4, platelet count 87. Sodium 134, BUN 61 creatinine 1.89. P atient states that in general he does not feel well. Anemia workup added. 08/28: Consults were added yesterday afternoon for [facility]ound Center and infectious disease. Patient has been started on IV vancomycin. He has had a slight bump in his renal function with BUN 63 creatinine 1.91. Cardiology has discontinued Zaroxolyn. Hemoglobin is 8.1 and anemia workup was ordered yesterday. Patient's blood pressures been 97/50 heart rate in the 70s and 80s. Patient is utilizing BiPAP when sleeping or at nighttime. During the day he is on 4 L nasal cannula with pulse ox 97%. Patient continues to complain of generalized fatigue and weakness and not feeling well in general. Cough is improved. 08/29: First blood culture Gram stain was positive for gram-positive cocci in clusters. Culture is showing no growth after 72 hours. He had a second blood culture obtained which was finalized with no growth at 5 days. A repeat blood culture was obtained yesterday and is status received. Bacteremia is possible contamination but patient is currently on vancomycin as advised by Dr. Valle. He has been seen by Wound Center with recommendations for left lower extremity: Honey gel, border foam wrap with Toribio wrap to control swelling. Right lower extremity apply triad and rolled gauze and wrap with Toribio wrap. Legs are to be elevated for 30 minutes at least 3 times a day. Patient is seen today in rec liner with his legs elevated. He is off the BiPAP for now. He is utilizing BiPAP for nighttime and when sleeping. He has been afebrile, heart rate in the 70s, blood pressure 96/50. Repeat blood work reveals WBC 9.2, hemoglobin 8.1, platelet count 91. Sodium 133, potassium 3.3, chloride 90, CO2 34, BUN 67 creatinine 2.05.cardiology has discontinued Zaroxolyn and continue patient on Lasix 80 mg oral daily as well as spironolactone 12.5 mg daily. Patient to be transferred to [facility] floor with telemetry. 08/30: Patient was seen in consultation by hematology oncology due to concern of anemia with iron deficiency and possible myelodysplasia, this is likely related to any iron deficiency anemia due to chronic kidney disease, he may need to have some workup as an outpatient when the anemia is better, but at this point in time we'll continue treat his infection, continue to treat the patient supportive patient very closely, he may need to go back on iron infusion when the patient the infection is better, and he may need to go on erythropoietin according to hematology oncology down the line to treat both the anemia of chronic kidney disease and possible underlying MDS, to have some issues generalized weakness, patient not able template very well, he continues to be on IV diuretics, we will repeat his labs, patient will likely be transferred back to [facility] on the [place] in the next 1 or 2 days. 08/31: Patient is laying down in bed he appears to be in moderate respiratory distress since we cut down on his Lasix to 40 mg once every day, he did diurese about 300 mL in the back today after the oral Lasix, I will put the patient back on his BiPAP, we will switch the patient to Lasix 60 mg IV push every 12 hours, we'll consult pulmonary medicine, continue to monitor the patient input and output and daily weight, we will do a stat chest x-ray, nephrology consultation for acute on chronic kidney disease as well overall prognosis continue to be guarded patient is no code at this point in time we will continue the aggressive treatment. 09/01: Patient continues on IV Lasix 60 mg every 12 hours. This morning his had a negative output 4362. Daily weights are not accurate. Blood pressure 111/60, heart rate in the 60s to 80s, pulse ox 95% on 4 L nasal cannula. Patient is se en by pulmonary medicine and patient has been started on IV Solu-Medrol. We will add in NovoLog scale. Patient is also followed by nephrology with recommendations to maintain IV Lasix, low salt diet and 1500 mL fluid restriction. Low potassium is been replaced. Aranesp added and recommended SGLT2. He is on Farxiga that has been on hold. Patient has been seen by oncology, MM a is pending. Recommendations for supplementation. Antibiotics over the weekend were transitioned from vancomycin to daptomycin.. REVIEW OF SYSTEMS: Constitutional: No documented fever, no chills, no night sweats. No weight change. No weakness, fatigue or lethargy. No daytime sleepiness. HEENT: No headache. No blurred vision or double vision, no loss of vision. Chronic loss of Hearing, no ringing in the ears, no dizziness. No nasal drainage or congestion. No epistaxis. No sore throat. Lungs: positive for shortness of breathimproving, occasional cough, minimal sputum production. No wheezing. Reports dyspnea with activity. Cardiovascular: Denies chest pain, positive for lower extremity edema. No palpitations. No paroxysmal nocturnal dyspnea. No orthopnea. No lightheadedness or dizziness. No syncopal episodes. Abdominal: Denies abdominal pain. No nausea, vomiting. No diarrhea. No co nstipation. No bloody or tarry stools reports loss of appetite. Genitourinary: No dysuria, increased frequency, urgency. No urinary retention. Musculoskeletal: No myalgias. positive for muscle weakness, positive for gait dysfunction, positive for frequent falls. positive for back pain. No neck pain, bilateral hip pain Integumentary: No wounds, no lesions. No rash or pruritus. No unusual b ruising. No change in hair or nails. Neurologic: No aphasia. No facial droop. Mild chronic change in mentation. No head injury. No headache. No paralysis. No paresthesia. Psychiatric: No depression. No anxiety. No mood swings. Endocrine: No abnormal blood sugars. No weight change. PHYSICAL EXAMINATION: General: 72-year-old male lying down in a recliner in no respiratory distress HEENT: Head is atraumatic, normocephalic, pupils were equal round reactive to light and recommendation, extraocular muscle movement were intact, sclera nonicteric, conjunctivae were pale, mucous membranes of the mouth are somewhat dry. Neck: Supple, no JVP, normal carotid upstroke bilaterally, no lymphadenopathy. Chest: Decreased breath sounds at the bases, few rhonchi, no expiratory wheezes, no chest wall tenderness, no intercostal retractions. Heart: First heart sound is normal, second heart sound is normal, there is systolic ejection murmur 2/6 located in the left sternal border. Abdomen: Soft, distended with abdomina wall edema and Ascites positive bowel sounds, obese. Extremities: There is +1 edema no calf tenderness DP +2 bilaterally, there is bilateral scabbed lesions in both shins , wrapped with kirlex wraps Neurologic examination: Patient is awake alert and oriented X 2, cranial nerves II-12 appear grossly intact, muscle power were 3out of 5 in upper extremities and 3/5 in bilateral lower extremities ASSESSMENT AND PLAN: 1. Acute hypoxemic respiratory failure due to acute on chronic diastolic heart failure and COPD wit RAMYA and OHS . Pulmonary evaluation stat chest x-ray, monitor input and output and daily weight, continue spironolactone 12.5 mg orally once every day, metoprolol 37.5 mg orally twice every day, I will restart the patient on Lasix 60 mg IV push every 12 hours. Farxiga 5 mg daily has been on hold. 2. COPD/moderate persistent asthma and not in exacerbation with chronic hypoxemic respiratory failure continue oxygen support continue DuoNeb 3 mg nebulization 4 times every day. Pulmonary consult 3. Paroxysmal atrial fibrillation/ Flutter. Continue patient on metoprolol 37.5 mg orally twice every day, on Xarelto 15 mg orally once every day 4. Hypertension and hypertensive cardiovascular disease. Continue patient on metoprolol 37.5 mg orally twice every day, monitor the patient blood pressure very closely. 5. Hyperlipidemia. Continue patient on atorvastatin 20 mg orally once every day, monitor lipid panel, keep LDL 55-70. 6. Enlarged prostate. Continue patient on tamsulosin 0.4 mg orally once every day. 7. Anxiety disorder. Continue patient on sertraline 100 mg orally once every day. 8. Neuropathy. Continue patient on gabapentin 300 mg at bedtime. 9. Thrombocytopenia. Likely related to alcoholic fatty liver disease and possible liver cirrhosis patient did have an MRCP in the past that showed fatty liver as well as mild splenomegaly cannot entirely rule out myelodysplasia, we will check US of the abdomen for possible ascites . Oncology consult appreciated. 10. Acute kidney injury on chronic kidney disease stage III a. Continue to monitor renal function, avoid nephrotoxic agents, nephrology consultation. Continue IV Lasix, low salt diet, 1500 mL fluid restriction 11. Depression. we will continue with Sertraline 100 mg po daily 12. Wounds to the bilateral lower extremities/cellulitis: Nonhealing ulcer left calf, right lower extremity, chronic venous insufficiency. Consult with Wound Center and infectious disease, continue with current local care, continue daptomycin.. 13. Gram-positive cocci in clusters bacteremia. IV vancomycin has been transitioned to daptomycin treatment repeated blood cultures are negative so far.ID is following 14. Anemia and thrombocytopenia. Oncology consult appreciated. MMA is pending. DVT prophylaxis. Continue Xarelto 15 mg po daily 15. GI prophylaxis. Continue patient on Protonix 40 mg orally once every day. 16. PT evaluation and child abuse worker consult. Discharge planning to return to [facility]. 17. DO NOT RESUSCITATE. 18. Obesity with obstructive sleep apnea and obesity hypoventilation syndrome. Continue patient on BiPAP. 19. Overall prognosis is guarded Impression and plan of care have been directed as dictated by the signing physician. Concepción Perkins nurse practitioner acting as scribe for signing physician. Objective - Vital Signs Vital signs: Vital Signs Temp 97.4 F L 09/01/23 07:45 Pulse 76 09/01/23 08:30 Resp 21 09/01/23 07:45 BP 113/62 09/01/23 07:45 Pulse Ox 90 L 09/01/23 08:06 FiO2 30 09/01/23 04:07 Intake & Output 08/31/23 09/01/2323 18:59 06:59 18:59 Intake Total 120 120 Output Total 2702 1900 Balance -6578 -3320 Intake: Oral 120 120 Output: Urine 2700 1900 Stool 2 Other: Voiding Method Indwelling Catheter Indwelling Catheter Indwelling Catheter # Bowel Movements 1 - Labs CBC & Chem 7: 09/01/23 06:40 09/01/23 06:40 Labs: Abnormal Lab Results - Last 24 Hours (Table) 08/30/23 08/31/23 08/31/23 Range/Units 06:21 14:55 14:55 RBC 2.84 L (4.40-5.60) X 10*6/uL Hgb 7.4 L (13.0-17.0) d/dL Hct 25.5 L (39.6-50.0) % MCH 26.1 L (27.0-32.0) pg MCHC 29.0 L (32.0-37.0) d/dL RDW 19.4 H (11.5-14.5) % Plt Count 96 L (140-440) X 10*3/uL Lymphocytes # 0.71 L (0.90-5.00) X 10*3/uL Sodium (137-145) mmol/L Potassium (3.5-5.1) mmol/L Chloride (98-107) mmol/L Carbon Dioxide (22-30) mmol/L BUN (9-20) mg/dL Creatinine (0.66-1.25) mg/dL Glucose (74-99) mg/dL Total Bilirubin (0.2-1.3) mg/dL Alkaline Phosphatase (38-126) U/L Total Protein (6.3-8.2) g/dL Albumin (3.5-5.0) g/dL Urine Blood Moderate H (Negative) Ur Leukocyte Esterase Trace H (Negative) Urine RBC 42 H (0-5) /hpf Ur Random Microalbumin 3.0 H (0.0-1.9) mg/dL U Creat (Microalbumin) 20.8 L (39.0-259.0) mg/dL Microalb/Creat Ratio 144 H (0-30) mg/g Cr 09/01/23 Range/Units 06:40 RBC (4.40-5.60) X 10*6/uL Hgb (13.0-17.0) d/dL Hct (39.6-50.0) % MCH (27.0-32.0) pg MCHC (32.0-37.0) d/dL RDW (11.5-14.5) % Plt Count (140-440) X 10*3/uL Lymphocytes # (0.90-5.00) X 10*3/uL Sodium 136 L (137-145) mmol/L Potassium 3.2 L (3.5-5.1) mmol/L Chloride 90 L (98-107) mmol/L Carbon Dioxide 38 H (22-30) mmol/L BUN 71 H (9-20) mg/dL Creatinine 1.68 H (0.66-1.25) mg/dL Glucose 101 H (74-99) mg/dL Total Bilirubin 1.4 H (0.2-1.3) mg/dL Alkaline Phosphatase 205 H (38-126) U/L Total Protein 6.2 L (6.3-8.2) g/dL Albumin 3.1 L (3.5-5.0) g/dL Urine Blood (Negative) Ur Leukocyte Esterase (Negative) Urine RBC (0-5) /hpf Ur Random Microalbumin (0.0-1.9) mg/dL U Creat (Microalbumin) (39.0-259.0) mg/dL Microalb/Creat Ratio (0-30) mg/g Cr Microbiology - Last 24 Hours (Table) 08/28/23 11:37 Blood Culture - Preliminary Blood
[2023-09-01 17:45] LABS: Glucose,Whole Blood 188 mg/dL (70-110)
[2023-09-01] MEDS: RIVAROXABAN 15 MG TAB PO SCH (18:00)
[2023-09-01] MEDS: INSULIN ASPART (NovoLOG) 100 UNIT/ML VIAL SQ SCH ×2 (18:00→21:05)
[2023-09-01] MEDS: SODIUM FERRIC GLUCONAT-SUCROSE 125 MG in SODIUM CHLORIDE 0.9% 100 ML IVPB SCH (18:00)
[2023-09-01 20:16] LABS: Glucose,Whole Blood 181 mg/dL (70-110)
[2023-09-01] MEDS: SERTRALINE 100 MG TAB PO SCH (20:50)
[2023-09-01] MEDS: GABAPENTIN 300 MG CAP PO SCH (20:50)
[2023-09-01] MEDS: MONTELUKAST 10 MG TAB PO SCH (20:50)
[2023-09-01] MEDS: BACLOFEN 10 MG TAB PO PRN (23:26)
[2023-09-02] MEDS: methylPREDNISolone SOD SUCCI 125 MG/2 ML VIAL IV SCH ×2 (05:26→13:21)
[2023-09-02] MEDS: ACETAMINOPHEN TAB 500 MG TAB PO PRN (05:33)
[2023-09-02 07:54] LABS: Glucose,Whole Blood 149 mg/dL (70-110)
[2023-09-02] MEDS: FORMOTEROL FUMARATE 20 MCG/2 ML NEBU INHALATION SCH ×2 (08:36→20:28)
[2023-09-02] MEDS: BUDESONIDE 1 MG/2 ML NEBU INHALATION SCH ×2 (08:36→20:28)
[2023-09-02] MEDS: IPRATROPIUM-ALBUTEROL 3 ML NEB INHALATION SCH ×4 (08:36→20:28)
[2023-09-02] MEDS: CHOLECALCIFEROL 25 MCG (1000 IU) TABLET PO SCH (08:54)
[2023-09-02] MEDS: SODIUM CHLORIDE 0.9% IVPB SCH (08:55)
[2023-09-02] MEDS: NYSTATIN 100,000 UNIT/ML SUSP 500,000 UNIT/5 ML CUP PO SCH ×3 (08:55→22:48)
[2023-09-02] MEDS: allopurinoL 100 MG TAB PO SCH (08:55)
[2023-09-02] MEDS: FUROSEMIDE 10 MG/ML 10 ML VIAL IV SCH ×2 (08:55→22:30)
[2023-09-02] MEDS: DAPTOMYCIN IVPB SCH (08:55)
[2023-09-02] MEDS: PANTOPRAZOLE 40 MG TABLET PO SCH (08:55)
[2023-09-02] MEDS: TAMSULOSIN 0.4 MG CAP.ER.24H PO SCH (08:55)
[2023-09-02] MEDS: SPIRONOLACTONE 25 MG TAB PO SCH (08:55)
[2023-09-02] MEDS: LACTULOSE 20 GM/30 ML CUP PO SCH ×2 (08:56→20:51)
[2023-09-02] MEDS: INSULIN ASPART (NovoLOG) 100 UNIT/ML VIAL SQ SCH ×4 (08:56→20:56)
[2023-09-02] MEDS: NYSTATIN 100,000 UNIT/GM POWD 15 GM TOPICAL SCH ×2 (08:57→20:52)
[2023-09-02] MEDS: SODIUM FERRIC GLUCONAT-SUCROSE 125 MG in SODIUM CHLORIDE 0.9% 100 ML IVPB SCH (09:42)
--- NOTE | 2023-09-02 09:59 | P.PN ---
Subjective Patient is seen in follow-up for acute kidney injury and chronic kidney disease. Renal function fairly stable. On IV Lasix. Nonoliguric. No vomiting or diarrhea. Oral intake fair. On nasal cannula. Eating breakfast. Vital signs are stable. General: No acute distress. HEENT: Oxygen mask noted. LUNGS: No audible rhonchi or wheezes. HEART: Rate and Rhythm are regular. ABDOMEN: Nontender, obese. EXTREMITITES: 1+ edema. Objective - Vital Signs Vital signs: Vital Signs Temp 97.9 F 09/02/23 07:46 Pulse 72 09/02/23 09:00 Resp 20 09/02/23 07:46 BP 99/50 09/02/23 07:46 Pulse Ox 94 L 09/02/23 08:36 FiO2 30 09/02/23 04:34 Intake & Output 09/01/23 09/02/23 09/02/23 18:59 06:59 18:59 Intake Total 660 504 Output Total 1200 800 Balance -1200 -140 504 Intake: Oral 660 504 Output: Urine 1200 800 Other: Voiding Method Indwelling Catheter Indwelling Catheter Indwelling Catheter - Labs CBC & Chem 7: 09/01/23 06:40 09/01/23 06:40 Labs: Abnormal Lab Results - Last 24 Hours (Table) 08/30/23 08/30/23 09/01/23 Range/Units 06:21 06:21 06:40 RBC 2.93 L (4.40-5.60) X 10*6/uL Hgb 7.7 L (13.0-17.0) d/dL Hct 26.4 L (39.6-50.0) % MCH 26.3 L (27.0-32.0) pg MCHC 29.2 L (32.0-37.0) d/dL RDW 19.5 H (11.5-14.5) % Plt Count 127 L (140-440) X 10*3/uL Lymphocytes # 0.51 L (0.90-5.00) X 10*3/uL POC Glucose (mg/dL) (70-110) mg/dL Erythropoietin 121.43 H (2.00-30.00) mIU/mL Methylmalonic Acid 0.54 H (<0.40) umol/L 09/01/23 09/01/23 09/02/23 Range/Units 17:38 20:14 07:47 RBC (4.40-5.60) X 10*6/uL Hgb (13.0-17.0) d/dL Hct (39.6-50.0) % MCH (27.0-32.0) pg MCHC (32.0-37.0) d/dL RDW (11.5-14.5) % Plt Count (140-440) X 10*3/uL Lymphocytes # (0.90-5.00) X 10*3/uL POC Glucose (mg/dL) 188 H 181 H 149 H (70-110) mg/dL Erythropoietin (2.00-30.00) mIU/mL Methylmalonic Acid (<0.40) umol/L Assessment and Plan Plan: Assessment: 1. Acute kidney injury secondary to ATN secondary to cardiorenal syndrome. Renal function stable. Creatinine 1.68 yesterday. Nonoliguric. No proteinuria on UA. No hydronephrosis noted on kidney ultrasound. 2. Chronic kidney disease stage III A with baseline creatinine 1-1.5. Suspect nephrosclerosis. 3. Acute on chronic diastolic CHF. 4. Volume overload. Improving with diuresis. 5. Acute hypoxic respiratory failure. 6. Hypokalemia from diuresis. Replaced. 7. Gram-positive bacteremia with lower extremity cellulitis on antibiotics. ID following. 8. Anemia of chronic kidney disease. On Aranesp. Plan: Maintain IV Lasix. Low-salt diet and 1500 mL fluid restriction. Will benefit from [id number] once infection resolves.
[2023-09-02] MEDS: METOPROLOL TARTRATE 12.5 MG TAB PO SCH ×2 (10:42→20:50)
[2023-09-02 11:44] LABS: BUN/Creat Ratio 39.11 Ratio (12.00-20.00); Blood Urea Nitrogen 70.4 mg/dL (9.0-27.0); Calcium 9.3 mg/dL (8.7-10.3); Chloride 91 mmol/L (96-109); Glucose 134 mg/dL (70-110); Magnesium 2.3 mg/dL (1.5-2.4); Potassium 3.9 mmol/L (3.5-5.5); Sodium 137 mmol/L (135-145)
[2023-09-02 12:58] LABS: Glucose,Whole Blood 183 mg/dL (70-110)
[2023-09-02] MEDS: CYANOCOBALAMIN 500 MCG TAB PO SCH (13:26)
--- NOTE | 2023-09-02 13:32 | P.PN ---
Subjective Progress Note Date: 09/02/23 I am seeing this patient in new consultation today 09/01/2023 for acute hypoxemic and hypercapnic respiratory failure requiring BiPAP. Patient is a 73-year-old white male who is fairly debilitated, he has past medical history of asthma, obstructive sleep apnea with CPAP, chronic oxygen dependence, hyper lipidemia, hypertension, congestive heart failure, paroxysmal atrial fibrillation, and his remote ex-smoker over 30 years ago. Patient did have a recent hospitalization last month for diastolic congestive heart failure. Patient reportedly currently resides at a local [facility]. Patient was refusing to w ear his CPAP at night. When he awoke, he was found to be confused with a pulse oximeter reading in the 70s. He was transferred to [facility] by EMS back on August 23. Chest x-ray on arrival was consistent with pulmonary edema. Patient is receiving Lasix 60 mg twice a day. Urine output has been adequate. Echocardiogram this admission shows a preserved left ventricular ejection fraction of 50-55%. Exam was otherwise limited. Most recent CBC from yesterday shows a WBC count of 7.1, hemoglobin 8.2, hematocrit 25.9, and platelets 108,000. Most recent BMP from yesterday shows sodium 134, potassium 3.5, chloride 92, serum bicarbonate 35, UN 76, creatinine 1.74, glucose 98. Am monia level was elevated at 45, the patient's been started on lactulose. AST and ALP are not elevated. ALP 223. On arrival, the patient did have an isolated positive blood culture showing gram-positive cocci in clusters. Patient was initially started on vancomycin, but his renal function was poor, and he was switched to daptomycin. Repeat blood cultures have remained negative. Patient is currently sitting up in bed, on BiPAP with settings 12/5 and an FiO2 of 30%. He is achieving tidal volumes around 500 and respiratory rate is 25. He is still quite confused. Bilateral lower extremities are wrapped. Patient does have lower extremity wounds. He also has a urinary catheter, there was reportedly inserted for urinary retention. Urinalysis not concerning for UTI. Patient is afebrile. Hemodynamically stable at this time. On today's evaluation of 09/02/2023, the patient is doing well. The patient is despite the diuretics and the patient has been in a negative fluid balance of at least 4.3 L over the past 24 hours. The patient's blood work shows a BUN of 70 with a creatinine of 1.8 and sodium levels at 138. Noted the patient has chronic kidney disease. He is currently on DuoNeb updrafts, he is also on IV Solu-Medrol 40 mg every 8 hours and the patient is also on diuretics receiving Lasix 60 mg IV every 12 hours. The patient is also on oxygen at 4 L/m nasal cannula. Objective - Vital Signs Vital signs: Vital Signs Temp 97.9 F 09/02/23 07:46 Pulse 89 09/02/23 11:29 Resp 20 09/02/23 07:46 BP 120/72 09/02/23 10:41 Pulse Ox 94 L 09/02/23 08:36 FiO2 30 09/02/23 04:34 Intake & Output 09/01/23 09/02/23 09/02/23 18:59 06:59 18:59 Intake Total 660 504 Output Total 1200 800 Balance -1200 -140 504 Intake: Oral 660 504 Output: Urine 1200 800 Other: Voiding Method Indwelling Catheter Indwelling Catheter Indwelling Catheter - Exam GENERAL EXAM: Alert but disoriented, 73-year-old morbidly obese male, comfortable in no apparent distress. HEAD: Normocephalic and atraumatic EYES: Normal reaction of pupils, equal size. NOSE: Clear with pink turbinates. THROAT: No erythema or exudates. NECK: No masses, no JVD. CHEST: No chest wall deformity. LUNGS: Equal air entry with bibasilar inspiratory crackles. Mild expiratory wheezes heard throughout. Currently on BiPAP. No conversational dyspnea or ac cessory muscle use.. CVS: S1 and S2 normal with no audible murmur, regular rhythm. No extra heart s ounds ABDOMEN obese abdomen, no hepatosplenomegaly, active bowel sounds, no guarding or rigidity. SPINE: No scoliosis or deformity SKIN: right lower extremity partial thickness ulceration, legs are wrapped with Toribio bandages CENTRAL NERVOUS SYSTEM: No focal deficits, tone is normal in all 4 extremities. EXTREMITIES: There is bilateral lower extremity nonpitting edema. No clubbing, or cyanosis. Peripheral pulses are intact. - Labs CBC & Chem 7: 09/01/23 06:40 09/02/23 05:42 Labs: Abnormal Lab Results - Last 24 Hours (Table) 08/30/23 09/01/2309/01/23 Range/Units 06:21 17:38 20:14 POC Glucose (mg/dL) 188 H 181 H (70-110) mg/dL Methylmalonic Acid 0.54 H (<0.40) umol/L 09/02/23 Range/Units 07:47 POC Glucose (mg/dL) 149 H (70-110) mg/dL Methylmalonic Acid (<0.40) umol/L Assessment and Plan Assessment: Acute exacerbation of diastolic CHF, with significant cardiomegaly, pulmonary vascular congestion, and small effusions. Echocardiogram from 08/25/23 showed ejection fraction of left ventricle in the order of 50-55%, and otherwise was a limited exam Acute exacerbation of chronic bronchial asthma/COPD Acute on chronic hypoxemic and hypercapnic respiratory failure, currently on BiPAP Bacteremia, original blood cultures were positive with gram-positive cocci in clusters. Repeat cultures have been negative so far. Paroxysmal A. fib maintenance and he is admitted on anticoagulation with with Xarelto Acute on chronic kidney disease, patient has a history of chronic kidney disease stage III, creatinine is improving and the creatinine is down to 1.6 Acute metabolic encephalopathy, probably related to a combination of hypercapnic respiratory failure and possibly hyperammonemia Anemia of chronic disease. Thrombocytopenia Obstructive sleep apnea syndrome, maintained on CPAP. Chronic venous stasis and right lower extremity wounds Paroxysmal atrial fibrillation. Benign essential hypertension. History of hyperlipidemia. Morbid obesity, with a BMI of 45.7 kg/m Plan: Patient is responding nicely to diuretics. We'll continue Lasix 60 mg IV every 12 hours Patient is a negative fluid balance Patient has adequate urine output We'll repeat chest x-ray within next 24 hours Monitor hemoglobin Continue BiPAP at bedtime Receiving Lasix 60 mg twice a day Continue bronchodilators, formoterol, budesonide Continue Solu-Medrol He has diastolic heart failure and fluid overload. Awaiting repeat blood cultures. White cell count isn't elevated and the patient is chronically anemic. Continue bronchodilators. Continue the rest of the home medications. We'll continue to follow.
--- NOTE | 2023-09-02 14:13 | P.PN ---
Subjective Progress Note Date: 09/02/23 HISTORY OF PRESENT ILLNESS: This is a 73-year-old male with a previous medical history significant for hypertension and hypertensive cardiovascular disease, hyperlipidemia, obesity with obstructive sleep apnea and obesity hypoventilation syndrome, chronic diastolic heart failure, asthma, hypothyroidism, anxiety and depressive disorder, peripheral neuropathy, patient was recently discharged from [facility] after he was admitted to the hospital for acute diastolic heart failure and pulmonary edema, and he was discharged back to [facility] on the , patient was doing fine and he was seen on Friday he was doing fine suddenly developed to have a significant weeping from both lower extremities despite taken spironolactone as well as Lasix and Farxiga, patient has been on oxygen at 4 L Cannula, patient weight has been increased, with increased weeping from both lower extremities, the nursing staff came to see the patient in the morning and he was unresponsive with oxygen saturation in the low 80s, 911 was called and the patient was. On the high flow oxygen he went up to 88%, patient was transported to the emergency department at [facility], had a chest x- ray that showed bulbar edema, he was placed on a BiPAP, with Lasix 40 mg IV push, he felt much better he is sitting down in bed, he continues to be somewhat short of breath, he continues to have significant swelling in both lower extremities with minimal denuded blister in the left lower extremity, he does appear to have a chronic stasis edema, patient appears to be more awake and alert at the time of evaluation in the ER. Patient will be admitted to the hospital for acute diastolic heart failure with The BiPAP, Would Be Started on Lasix 80 Mg IV Push Every 12 Hours. 08/24: Patient is feeling better today, he continues to be on 4 L nasal cannula, he denies any chest pain, isosorbide, uses the BiPAP on and off, he is diuresing with Lasix 80 mg IV push every 12 hours, he is continued for sick at 10 mg every day, spironolactone 25 mg once every day, monitor the patient input and output and daily weight, follow the patient very closely. Cardiology is to see the patient as he is complaining of chest pin suggestive of CAD 08/25: Patient continues to have slow improvement of his breathing status. Patient is on BiPAP during the night with pulse ox of 94%, currently on 4 L nasal cannula with pulse ox of 97%. Heart rate is mostly in the 50s and 60s, blood pressure 104/56. Repeat blood work reveals WBC 10.1, hemoglobin 8.4, platelet count 103. Sodium 138, potassium 3.9, BUN 49 creatinine 1.51. CO2 is 31. Limited echocardiogram reveals EF of 50-55%. Patient has a negative fluid balance. Weights do not appear to be accurate. Cardiology has decreased frequency of IV Lasix 80 mg 2 once daily and continued Zaroxolyn for today. 08/26: Patient has been seen by cardiology and IV Lasix has been transitioned to oral at 80 mg daily and continued on Zaroxolyn 5 mg daily. He has had increase in his BUN to 54 and creatinine 1.7. His breathing status seems to be stable. He is using BiPAP when sleeping at nighttime and on nasal cannula during the day at 4 L. His heart rate is running in the 70s, blood pressure 121/72. Other blood work reveals hemoglobin is stable at 8.7, WBC 16.4 platelet count 86. 08/27: Patient has been seen by cardiology today with recommendations to continue oral Lasix at 80 mg daily and metolazone 5 mg daily. Blood pressures been on the soft side 94/52, heart rate in the 60s and 70s. He has been afebrile, pulse ox 90% on 4 L nasal cannula. Repeat blood work reveals WBC 13.3, hemoglobin 8.4, platelet count 87. Sodium 134, BUN 61 creatinine 1.89. P atient states that in general he does not feel well. Anemia workup added. 08/28: Consults were added yesterday afternoon for [facility]ound Center and infectious disease. Patient has been started on IV vancomycin. He has had a slight bump in his renal function with BUN 63 creatinine 1.91. Cardiology has discontinued Zaroxolyn. Hemoglobin is 8.1 and anemia workup was ordered yesterday. Patient's blood pressures been 97/50 heart rate in the 70s and 80s. Patient is utilizing BiPAP when sleeping or at nighttime. During the day he is on 4 L nasal cannula with pulse ox 97%. Patient continues to complain of generalized fatigue and weakness and not feeling well in general. Cough is improved. 08/29: First blood culture Gram stain was positive for gram-positive cocci in clusters. Culture is showing no growth after 72 hours. He had a second blood culture obtained which was finalized with no growth at 5 days. A repeat blood culture was obtained yesterday and is status received. Bacteremia is possible contamination but patient is currently on vancomycin as advised by Dr. Valle. He has been seen by Wound Center with recommendations for left lower extremity: Honey gel, border foam wrap with Toribio wrap to control swelling. Right lower extremity apply triad and rolled gauze and wrap with Toribio wrap. Legs are to be elevated for 30 minutes at least 3 times a day. Patient is seen today in rec liner with his legs elevated. He is off the BiPAP for now. He is utilizing BiPAP for nighttime and when sleeping. He has been afebrile, heart rate in the 70s, blood pressure 96/50. Repeat blood work reveals WBC 9.2, hemoglobin 8.1, platelet count 91. Sodium 133, potassium 3.3, chloride 90, CO2 34, BUN 67 creatinine 2.05.cardiology has discontinued Zaroxolyn and continue patient on Lasix 80 mg oral daily as well as spironolactone 12.5 mg daily. Patient to be transferred to [facility] floor with telemetry. 08/30: Patient was seen in consultation by hematology oncology due to concern of anemia with iron deficiency and possible myelodysplasia, this is likely related to any iron deficiency anemia due to chronic kidney disease, he may need to have some workup as an outpatient when the anemia is better, but at this point in time we'll continue treat his infection, continue to treat the patient supportive patient very closely, he may need to go back on iron infusion when the patient the infection is better, and he may need to go on erythropoietin according to hematology oncology down the line to treat both the anemia of chronic kidney disease and possible underlying MDS, to have some issues generalized weakness, patient not able template very well, he continues to be on IV diuretics, we will repeat his labs, patient will likely be transferred back to [facility] [place] the next 1 or 2 days. 08/31: Patient is laying down in bed he appears to be in moderate respiratory distress since we cut down on his Lasix to 40 mg once every day, he did diurese about 300 mL in the back today after the oral Lasix, I will put the patient back on his BiPAP, we will switch the patient to Lasix 60 mg IV push every 12 hours, we'll consult pulmonary medicine, continue to monitor the patient input and output and daily weight, we will do a stat chest x-ray, nephrology consultation for acute on chronic kidney disease as well overall prognosis continue to be guarded patient is no code at this point in time we will continue the aggressive treatment. 09/01: Patient continues on IV Lasix 60 mg every 12 hours. This morning his had a negative output [id number]. Daily weights are not accurate. Blood pressure 111/60, heart rate in the 60s to 80s, pulse ox 95% on 4 L nasal cannula. Patient is se en by pulmonary medicine and patient has been started on IV Solu-Medrol. We will add in NovoLog scale. Patient is also followed by nephrology with recommendations to maintain IV Lasix, low salt diet and 1500 mL fluid restriction. Low potassium is been replaced. Aranesp added and recommended SGLT2. He is on Farxiga that has been on hold. Patient has been seen by oncology, MM a is pending. Recommendations for supplementation. Antibiotics over the weekend were transitioned from vancomycin to daptomycin.. 09/02: Oncology has ordered Ferrlecit 3 doses. Patient remains afebrile, heart rate in the 70s and 80s, blood pressure 120/72, pulse ox 94% on 4 L nasal cannula. Patient continues to have lower extremity edema and some shortness of breath but all symptoms be very slowly improving. He is on IV Solu-Medrol 60 mg every 6 hours which will be decreased to 40 mg every 8 hours. He is followed closely by pulmonary medicine. Repeat blood work reveals sodium 137, potassium 3.9, chloride 91, CO2 33, creatinine 1.8. Blood glucose running between 149 and 188. A1c is 5.4. REVIEW OF SYSTEMS: Constitutional: No documented fever, no chills, no night sweats. No weight change. No weakness, fatigue or lethargy. No daytime sleepiness. HEENT: No headache. No blurred vision or double vision, no loss of vision. Chronic loss of Hearing, no ringing in the ears, no dizziness. No nasal drainage or congestion. No epistaxis. No sore throat. Lungs: positive for shortness of breathimproving, occasional cough, minimal sputum production. No wheezing. Reports dyspnea with activity. Cardiovascular: Denies chest pain, positive for lower extremity edema. No palpitations. No paroxysmal nocturnal dyspnea. No orthopnea. No lightheadedness or dizziness. No syncopal episodes. Abdominal: Denies abdominal pain. No nausea, vomiting. No diarrhea. No constipation. No bloody or tarry stools reports loss of appetite. Genitourinary: No dysuria, increased frequency, urgency. No urinary retention. Musculoskeletal: No myalgias. positive for muscle weakness, positive for gait dysfunction, positive for frequent falls. positive for back pain. No neck pain, bilateral hip pain Integumentary: No wounds, no lesions. No rash or pruritus. No unusual bruising. No change in hair or nails. Neurologic: No aphasia. No facial droop. Mild chronic change in mentation. No head injury. No headache. No paralysis. No paresthesia. Psychiatric: No depression. No anxiety. No mood swings. Endocrine: No abnormal blood sugars. No weight change. PHYSICAL EXAMINATION: General: 72-year-old male lying down in a recliner in no respiratory distress HEENT: Head is atraumatic, normocephalic, pupils were equal round reactive to light and recommendation, extraocular muscle movement were intact, sclera nonicteric, conjunctivae were pale, mucous membranes of the mouth are somewhat dry. Neck: Supple, no JVP, normal carotid upstroke bilaterally, no lymphadenopathy. Chest: Decreased breath sounds at the bases, few rhonchi, no expiratory wheezes, no chest wall tenderness, no intercostal retractions. Heart: First heart sound is normal, second heart sound is normal, there is systolic ejection murmur 2/6 located in the left sternal border. Abdomen: Soft, distended with abdomina wall edema and Ascites positive bowel sounds, obese. Extremities: There is +1 edema no calf tenderness DP +2 bilaterally, there is bilateral scabbed lesions in both shins , wrapped with kirlex wraps Neurologic examination: Patient is awake alert and oriented X 2, cranial nerves II-12 appear grossly intact, muscle power were 3out of 5 in upper extremities and 3/5 in bilateral lower extremities ASSESSMENT AND PLAN: 1. Acute hypoxemic respiratory failure due to acute on chronic diastolic heart failure and COPD wit RAMYA and OHS . Pulmonary evaluation stat chest x-ray, monitor input and output and daily weight, continue spironolactone 12.5 mg orally once every day, metoprolol 37.5 mg orally twice every day, continue patient on Lasix 60 mg IV push every 12 hours. Farxiga 5 mg daily has been on hold. 2. COPD/moderate persistent asthma and not in exacerbation with chronic hypoxemic respiratory failure continue oxygen support continue DuoNeb 3 mg nebulization 4 times every day. Decrease IV Solu-Medrol to 40 mg every 8 hours. Pulmonary consult 3. Paroxysmal atrial fibrillation/ Flutter. Continue patient on metoprolol 37.5 mg orally twice every day, on Xarelto 15 mg orally once every day 4. Hypertension and hypertensive cardiovascular disease. Continue patient on metoprolol 37.5 mg orally twice every day, monitor the patient blood pressure very closely. 5. Hyperlipidemia. Continue patient on atorvastatin 20 mg orally once every day, monitor lipid panel, keep LDL 55-70. 6. Enlarged prostate. Continue patient on tamsulosin 0.4 mg orally once every day. 7. Anxiety disorder. Continue patient on sertraline 100 mg orally once every day. 8. Neuropathy. Continue patient on gabapentin 300 mg at bedtime. 9. Thrombocytopenia. Likely related to alcoholic fatty liver disease and possible liver cirrhosis patient did have an MRCP in the past that showed fatty liver as well as mild splenomegaly cannot entirely rule out myelodysplasia, we will check US of the abdomen for possible ascites . Oncology consult appreciated. 10. Acute kidney injury on chronic kidney disease stage III a. Continue to monitor renal function, avoid nephrotoxic agents, nephrology consultation. Continue IV Lasix, low salt diet, 1500 mL fluid restriction 11. Depression. we will continue with Sertraline 100 mg po daily 12. Wounds to the bilateral lower extremities/cellulitis: Nonhealing ulcer left calf, right lower extremity, chronic venous insufficiency. Consult with Wound Center and infectious disease, continue with current local care, continue daptomycin.. 13. Gram-positive cocci in clusters bacteremia. IV vancomycin has been transitioned to daptomycin treatment repeated blood cultures are negative so far.ID is following 14. Anemia and thrombocytopenia. Oncology consult appreciated. MMA is pending. DVT prophylaxis. Continue Xarelto 15 mg po daily 15. GI prophylaxis. Continue patient on Protonix 40 mg orally once every day. 16. 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 Discharge planning to return to [facility]. 17. DO NOT RESUSCITATE. 18. Obesity with obstructive sleep apnea and obesity hypoventilation syndrome. Continue patient on BiPAP. 19. Overall prognosis is guarded Impression and plan of care have been directed as dictated by the signing physician. Concepción Perkins nurse practitioner acting as scribe for signing physician. Objective - Vital Signs Vital signs: Vital Signs Temp 97.9 F 09/02/23 07:46 Pulse 89 09/02/23 10:41 Resp 20 09/02/23 07:46 BP 120/72 09/02/23 10:41 Pulse Ox 94 L 09/02/23 08:36 FiO2 30 09/02/23 04:34 Intake & Output 09/01/23 09/02/23 09/02/23 18:59 06:59 18:59 Intake Total 660 504 Output Total 1200 800 Balance -1200 -140 504 Intake: Oral 660 504 Output: Urine 1200 800 Other: Voiding Method Indwelling Catheter Indwelling Catheter Indwelling Catheter - Labs CBC & Chem 7: 09/01/23 06:40 09/02/23 05:42 Labs: Abnormal Lab Results - Last 24 Hours (Table) 08/30/23 08/30/23 09/01/23 Range/Units 06:21 06:21 06:40 RBC 2.93 L (4.40-5.60) X 10*6/uL Hgb 7.7 L (13.0-17.0) d/dL Hct 26.4 L (39.6-50.0) % MCH 26.3 L (27.0-32.0) pg MCHC 29.2 L (32.0-37.0) d/dL RDW 19.5 H (11.5-14.5) % Plt Count 127 L (140-440) X 10*3/uL Lymphocytes # 0.51 L (0.90-5.00) X 10*3/uL POC Glucose (mg/dL) (70-110) mg/dL Erythropoietin 121.43 H (2.00-30.00) mIU/mL Methylmalonic Acid 0.54 H (<0.40) umol/L 09/01/23 09/01/23 09/02/23 Range/Units 17:38 20:14 07:47 RBC (4.40-5.60) X 10*6/uL Hgb (13.0-17.0) d/dL Hct (39.6-50.0) % MCH (27.0-32.0) pg MCHC (32.0-37.0) d/dL RDW (11.5-14.5) % Plt Count (140-440) X 10*3/uL Lymphocytes # (0.90-5.00) X 10*3/uL POC Glucose (mg/dL) 188 H 181 H 149 H (70-110) mg/dL Erythropoietin (2.00-30.00) mIU/mL Methylmalonic Acid (<0.40) umol/L
--- NOTE | 2023-09-02 14:19 | P.PN ---
Subjective Progress Note Date: 08/31/23 Principal diagnosis: Bacteremia left leg wound and cellulitis Patient is a 73-year-old male with a past medical history significant for hypertension hyperlipidemia sleep apnea reflux and asthma presenting to the hospital for shortness of breath and hypoxemia requiring BiPAP patient did have blood culture drawn can be positive with gram-positive cocci and also noticed to have ulceration and erythema to the left lower extremity. On today's evaluation that is 08/31/2023, the patient continues to be afebrile, , the patient is currently on 4L NC oxygen however the patient complaining of more shortness of breath today, the patient denies chest pain and no worsening cough, no diarrhea has been reported by the nursing staff Patient did have white count 7.1, creatinine is 1.74 Objective - Vital Signs Vital signs: Vital Signs Temp 98.3 F 08/31/23 20:00 Pulse 61 08/31/23 20:00 Resp 20 08/31/23 20:00 BP 108/53 08/31/23 20:00 Pulse Ox 94 L 08/31/23 20:00 FiO2 30 08/31/23 19:41 Intake & Output 08/31/23 08/31/23 09/01/23 06:59 18:59 06:59 Intake Total 300 120 Output Total 1100 2702 Balance -800 -2582 Intake: Oral 300 120 Output: Urine 1100 2700 Stool 2 Other: Voiding Method Indwelling Catheter Indwelling Catheter # Bowel Movements 0 - Exam GENERAL DESCRIPTION: An elderly male lying in bed in no distress RESPIRATORY SYSTEM: Unlabored breathing , decreased breath sounds at bases HEART: S1 S2 regular rate and rhythm , ABDOMEN: Soft , no tenderness EXTREMITIES: Left leg is currently dressed no drainage on the dressing - Labs CBC & Chem 7: 09/01/23 06:40 09/02/23 05:42 Labs: Abnormal Lab Results - Last 24 Hours (Table) 08/30/23 08/31/23 08/31/23 Range/Units 06:21 06:58 06:58 RBC 2.84 L (4.40-5.60) X 10*6/uL Hgb 7.4 L (13.0-17.0) d/dL Hct 25.5 L (39.6-50.0) % MCH 26.1 L (27.0-32.0) pg MCHC 29.0 L (32.0-37.0) d/dL RDW 19.4 H (11.5-14.5) % Plt Count 96 L (140-440) X 10*3/uL Lymphocytes # 0.71 L (0.90-5.00) X 10*3/uL Sodium 134 L (137-145) mmol/L Chloride 92 L (98-107) mmol/L Carbon Dioxide 35 H (22-30) mmol/L BUN 76 H (9-20) mg/dL Creatinine 1.76 H 1.74 H (0.66-1.25) mg/dL Alkaline Phosphatase 223 H (38-126) U/L Ammonia (<30) umol/L Total Protein 6.1 L (6.3-8.2) g/dL Albumin 3.1 L (3.5-5.0) g/dL Urine Blood (Negative) Ur Leukocyte Esterase (Negative) Urine RBC (0-5) /hpf 08/31/23 08/31/23 08/31/23 Range/Units 06:58 06:58 14:55 RBC 2.97 L (4.40-5.60) X 10*6/uL Hgb 8.2 L (13.0-17.0) d/dL Hct 25.9 L (39.6-50.0) % MCH (27.0-32.0) pg MCHC (32.0-37.0) d/dL RDW 18.3 H (11.5-14.5) % Plt Count 108 L (140-440) X 10*3/uL Lymphocytes # 0.8 L (0.90-5.00) X 10*3/uL Sodium (137-145) mmol/L Chloride (98-107) mmol/L Carbon Dioxide (22-30) mmol/L BUN (9-20) mg/dL Creatinine (0.66-1.25) mg/dL Alkaline Phosphatase (38-126) U/L Ammonia 45 H (<30) umol/L Total Protein (6.3-8.2) g/dL Albumin (3.5-5.0) g/dL Urine Blood Moderate H (Negative) Ur Leukocyte Esterase Trace H (Negative) Urine RBC 42 H (0-5) /hpf Microbiology - Last 24 Hours (Table) 08/28/23 11:37 Blood Culture - Preliminary Blood Assessment and Plan (1) Left leg cellulitis Current Visit: Yes Status: Acute Code(s): L03.116 - CELLULITIS OF LEFT LOWER LIMB SNOMED Code(s): 60261667174001252 (2) Bacteremia Current Visit: Yes Status: Acute Code(s): R78.81 - BACTEREMIA SNOMED Code(s): 2695930 (3) Chronic venous hypertension (idiopathic) with ulcer and inflammation of bilateral lower extremity Current Visit: Yes Status: Acute Code(s): I87.333 - CHRONIC VENOUS HTN W ULCER AND INFLAM OF BILATERAL LOW EXTRM SNOMED Code(s): 378815533566393 Plan: 1patient with gram-positive bacteremia in this patient has been the hospital for about 5 days with initial presentation with increasing shortness of breath and hypoxemia has been diagnosed with a CHF exacerbation with a question of possible skin contamination versus related to the left lower extremity cellulitis as the patient to have evidence of left lower extremity swelling redness some superficial ulceration likely from ruptured blister mild warmth and redness to touch. 2blood cultures has been repeated and so far negative 3local wound care to the left extremity with a dry Aquacel dressing and Toribio wrap change every 48 hours 4 patient to continue with daptomycin and monitor his clinical course closely Dictation was produced using [employer] dictation software. please excuse any grammatical, word or spelling errors. Time with Patient: Less than 30
--- NOTE | 2023-09-02 14:20 | P.PN ---
Subjective Progress Note Date: 09/01/23 Principal diagnosis: Bacteremia left leg wound and cellulitis Patient is a 73-year-old male with a past medical history significant for hypertension hyperlipidemia sleep apnea reflux and asthma presenting to the hospital for shortness of breath and hypoxemia requiring BiPAP patient did have blood culture drawn can be positive with gram-positive cocci and also noticed to have ulceration and erythema to the left lower extremity. On today's evaluation that is 09/01/2023, the patient denies any fever or any chills , the patient is breathing comfortably today and is currently on a 4 L nasal cannula oxygen, the patient denies chest pain or cough, patient denies nausea or vomiting and no abdominal pain, no diarrhea Patient did have white count 8.76 and creatinine is 1.68 Objective - Vital Signs Vital signs: Vital Signs Temp 97.6 F 09/01/23 12:50 Pulse 66 09/01/23 16:40 Resp 24 09/01/23 12:50 BP 111/60 09/01/23 12:50 Pulse Ox 95 09/01/23 12:50 FiO2 30 09/01/23 04:07 Intake & Output 08/31/23 09/01/23 09/01/23 18:59 06:59 18:59 Intake Total 120 120 Output Total 2702 1900 900 Balance -3176 -1088 -900 Intake: Oral 120 120 Output: Urine 2700 1900 900 Stool 2 Other: Voiding Method Indwelling Catheter Indwelling Catheter Indwelling Catheter # Bowel Movements 1 - Exam GENERAL DESCRIPTION: An elderly male lying in bed in no distress RESPIRATORY SYSTEM: Unlabored breathing , decreased breath sounds at bases HEART: S1 S2 regular rate and rhythm , ABDOMEN: Soft , no tenderness EXTREMITIES: Left leg is currently dressed no drainage on the dressing - Labs CBC & Chem 7: 09/01/23 06:40 09/02/23 05:42 Labs: Abnormal Lab Results - Last 24 Hours (Table) 08/30/23 08/31/23 09/01/23 Range/Units 06:21 14:55 06:40 RBC (4.40-5.60) X 10*6/uL Hgb (13.0-17.0) d/dL Hct (39.6-50.0) % MCH (27.0-32.0) pg MCHC (32.0-37.0) d/dL RDW (11.5-14.5) % Plt Count (140-440) X 10*3/uL Lymphocytes # (0.90-5.00) X 10*3/uL Sodium 136 L (137-145) mmol/L Potassium 3.2 L (3.5-5.1) mmol/L Chloride 90 L (98-107) mmol/L Carbon Dioxide 38 H (22-30) mmol/L BUN 71 H (9-20) mg/dL Creatinine 1.68 H (0.66-1.25) mg/dL Glucose 101 H (74-99) mg/dL Erythropoietin 121.43 H (2.00-30.00) mIU/mL Total Bilirubin 1.4 H (0.2-1.3) mg/dL Alkaline Phosphatase 205 H (38-126) U/L Total Protein 6.2 L (6.3-8.2) g/dL Albumin 3.1 L (3.5-5.0) g/dL Ur Random Microalbumin 3.0 H (0.0-1.9) mg/dL U Creat (Microalbumin) 20.8 L (39.0-259.0) mg/dL Microalb/Creat Ratio 144 H (0-30) mg/g Cr 09/01/23 Range/Units 06:40 RBC 2.93 L (4.40-5.60) X 10*6/uL Hgb 7.7 L (13.0-17.0) d/dL Hct 26.4 L (39.6-50.0) % MCH 26.3 L (27.0-32.0) pg MCHC 29.2 L (32.0-37.0) d/dL RDW 19.5 H (11.5-14.5) % Plt Count 127 L (140-440) X 10*3/uL Lymphocytes # 0.51 L (0.90-5.00) X 10*3/uL Sodium (137-145) mmol/L Potassium (3.5-5.1) mmol/L Chloride (98-107) mmol/L Carbon Dioxide (22-30) mmol/L BUN (9-20) mg/dL Creatinine (0.66-1.25) mg/dL Glucose (74-99) mg/dL Erythropoietin (2.00-30.00) mIU/mL Total Bilirubin (0.2-1.3) mg/dL Alkaline Phosphatase (38-126) U/L Total Protein (6.3-8.2) g/dL Albumin (3.5-5.0) g/dL Ur Random Microalbumin (0.0-1.9) mg/dL U Creat (Microalbumin) (39.0-259.0) mg/dL Microalb/Creat Ratio (0-30) mg/g Cr Microbiology - Last 24 Hours (Table) 08/28/23 11:37 Blood Culture - Preliminary Blood Assessment and Plan (1) Left leg cellulitis Current Visit: Yes Status: Acute Code(s): L03.116 - CELLULITIS OF LEFT LOWER LIMB SNOMED Code(s): 88101961474253266 (2) Bacteremia Current Visit: Yes Status: Acute Code(s): R78.81 - BACTEREMIA SNOMED Code(s): 0090529 (3) Chronic venous hypertension (idiopathic) with ulcer and inflammation of bilateral lower extremity Current Visit: Yes Status: Acute Code(s): I87.333 - CHRONIC VENOUS HTN W ULCER AND INFLAM OF BILATERAL LOW EXTRM SNOMED Code(s): 004905617966354 Plan: 1patient with gram-positive bacteremia in this patient has been the hospital for about 5 days with initial presentation with increasing shortness of breath and hypoxemia has been diagnosed with a CHF exacerbation with a question of possible skin contamination versus related to the left lower extremity cellul itis as the patient to have evidence of left lower extremity swelling redness some superficial ulceration likely from ruptured blister mild warmth and redness to touch. 2blood cultures has been repeated and so far negative 3local wound care to the left extremity with a dry Aquacel dressing and Toribio wrap change every 48 hours 4 patient to continue with daptomycin , seemed to have shown some improvement in the kidney function and will monitor clinical course closely Dictation was produced using [employer] dictation software. please excuse any grammatical, word or spelling errors. Time with Patient: Less than 30
[2023-09-02] MEDS: HYDROPHILIC CREAM 180 GM TUBE TOPICAL SCH (16:00)
[2023-09-02] MEDS: methylPREDNISolone SOD SUCCI 40 MG/ML 1 ML VIAL IV SCH ×2 (16:27→23:25)
--- NOTE | 2023-09-02 17:04 | P.PN ---
Subjective Progress Note Date: 09/02/23 Principal diagnosis: Bacteremia left leg wound and cellulitis Patient is a 73-year-old male with a past medical history significant for hypertension hyperlipidemia sleep apnea reflux and asthma presenting to the hospital for shortness of breath and hypoxemia requiring BiPAP patient did have blood culture drawn can be positive with gram-positive cocci and also noticed to have ulceration and erythema to the left lower extremity. On today's evaluation that is 09/02/2023, the patient remains to be afebrile, the patient is breathing comfortably on for years and is getting oxygen , the patient denies chest pain has been complaining of some cough with occasional sputum production, patient denies nausea/vomiting /diarrhea and denies abdominal pain Patient did have white count 8.76 as of yesterday and creatinine is 1.8, repeat blood culture has been negative Objective - Vital Signs Vital signs: Vital Signs Temp 97.7 F 09/02/23 12:47 Pulse 75 09/02/23 12:47 Resp 20 09/02/23 12:47 BP 112/51 09/02/23 12:47 Pulse Ox 92 L 09/02/23 12:47 FiO2 30 09/02/23 04:34 Intake & Output 09/01/23 09/02/23 09/02/23 18:59 06:59 18:59 Intake Total 660 504 Output Total 1200 800 Balance -1200 -140 504 Intake: Oral 660 504 Output: Urine 1200 800 Other: Voiding Method Indwelling Catheter Indwelling Catheter Indwelling Catheter - Exam GENERAL DESCRIPTION: An elderly male lying in bed in no distress RESPIRATORY SYSTEM: Unlabored breathing , decreased breath sounds at bases HEART: S1 S2 regular rate and rhythm , ABDOMEN: Soft , no tenderness EXTREMITIES: Left leg is currently dressed no drainage on the dressing - Labs CBC & Chem 7: 09/01/23 06:40 09/02/23 05:42 Labs: Abnormal Lab Results - Last 24 Hours (Table) 08/30/23 09/01/23 09/01/23 Range/Units 06:21 17:38 20:14 Chloride (96-109) mmol/L Carbon Dioxide (21.6-31.8) mmol/L Anion Gap (4.00-12.00) mmol/L BUN (9.0-27.0) mg/dL Creatinine (0.6-1.5) mg/dL Est GFR (CKD-EPI) (>=60) BUN/Creatinine Ratio (12.00-20.00) Ratio Glucose (70-110) mg/dL POC Glucose (mg/dL) 188 H 181 H (70-110) mg/dL Methylmalonic Acid 0.54 H (<0.40) umol/L 09/02/23 09/02/23 09/02/23 Range/Units 05:42 07:47 12:50 Chloride 91 L (96-109) mmol/L Carbon Dioxide 33.0 H (21.6-31.8) mmol/L Anion Gap 13.00 H (4.00-12.00) mmol/L BUN 70.4 H (9.0-27.0) mg/dL Creatinine 1.8 H (0.6-1.5) mg/dL Est GFR (CKD-EPI) 39 L (>=60) BUN/Creatinine Ratio 39.11 H (12.00-20.00) Ratio Glucose 134 H (70-110) mg/dL POC Glucose (mg/dL) 149 H 183 H (70-110) mg/dL Methylmalonic Acid (<0.40) umol/L Assessment and Plan (1) Left leg cellulitis Current Visit: Yes Status: Acute Code(s): L03.116 - CELLULITIS OF LEFT LOWER LIMB SNOMED Code(s): 09573073135699492 (2) Bacteremia Current Visit: Yes Status: Acute Code(s): R78.81 - BACTEREMIA SNOMED Code(s): 9563608 (3) Chronic venous hypertension (idiopathic) with ulcer and inflammation of bilateral lower extremity Current Visit: Yes Status: Acute Code(s): I87.333 - CHRONIC VENOUS HTN W ULCER AND INFLAM OF BILATERAL LOW EXTRM SNOMED Code(s): 278509697433886 Plan: 1patient with gram-positive bacteremia in this patient has been the hospital for about 5 days with initial presentation with increasing shortness of breath and hypoxemia has been diagnosed with a CHF exacerbation with a question of pos sible skin contamination versus related to the left lower extremity cellulitis as the patient to have evidence of left lower extremity swelling redness some superficial ulceration likely from ruptured blister mild warmth and redness to touch. 2blood cultures has been repeated and so far negative 3local wound care to the left extremity with a dry Aquacel dressing and Toribio wrap change every 48 hours 4 patient seemed to have shown some clinical improvement and will continue with daptomycin , however plan to transition to oral antibiotics on discharge Dictation was produced using [employer] dictation software. please excuse any grammatical, word or spelling errors. Time with Patient: Less than 30
[2023-09-02 17:21] LABS: Glucose,Whole Blood 165 mg/dL (70-110)
[2023-09-02] MEDS: RIVAROXABAN 15 MG TAB PO SCH (18:01)
[2023-09-02 20:26] LABS: Glucose,Whole Blood 173 mg/dL (70-110)
[2023-09-02] MEDS: GABAPENTIN 300 MG CAP PO SCH (20:50)
[2023-09-02] MEDS: SERTRALINE 100 MG TAB PO SCH (20:50)
[2023-09-02] MEDS: MONTELUKAST 10 MG TAB PO SCH (20:56)
--- NOTE | 2023-09-03 07:10 | XR ---
EXAMINATION TYPE: XR chest 1V DATE OF EXAM: 09/03/2023 6:28 AM COMPARISON: Chest radiographs from 08/31/2023 TECHNIQUE: XR chest 1V Frontal view of the chest. CLINICAL INDICATION:Male, 73 years old with history of CHF follow-up; FINDINGS: Lungs/Pleura: No evidence of focal consolidation or pneumothorax. Blunting of the costophrenic angles is present. Pulmonary vascularity: Pulmonary vascular congestion. Heart/mediastinum: Cardiomediastinal silhouette is enlarged and stable. Musculoskeletal: No acute osseous pathology. IMPRESSION: Cardiomegaly, pulmonary vascular congestion and small bilateral pleural effusions. Findings are most consistent with CHF exacerbation. Overall similar to prior exam.
[2023-09-03 07:20] LABS: Glucose,Whole Blood 153 mg/dL (70-110)
[2023-09-03] MEDS: SODIUM FERRIC GLUCONAT-SUCROSE 125 MG in SODIUM CHLORIDE 0.9% 100 ML IVPB SCH (08:08)
[2023-09-03] MEDS: METOPROLOL TARTRATE 12.5 MG TAB PO SCH ×2 (08:09→21:29)
[2023-09-03] MEDS: FUROSEMIDE 10 MG/ML 10 ML VIAL IV SCH (08:09)
[2023-09-03] MEDS: NYSTATIN 100,000 UNIT/ML SUSP 500,000 UNIT/5 ML CUP PO SCH ×3 (08:09→21:34)
[2023-09-03] MEDS: INSULIN ASPART (NovoLOG) 100 UNIT/ML VIAL SQ SCH ×4 (08:10→21:26)
[2023-09-03] MEDS: LACTULOSE 20 GM/30 ML CUP PO SCH ×2 (08:10→21:26)
[2023-09-03] MEDS: CYANOCOBALAMIN 500 MCG TAB PO SCH (08:10)
[2023-09-03] MEDS: ACETAMINOPHEN TAB 500 MG TAB PO PRN (08:10)
[2023-09-03] MEDS: PANTOPRAZOLE 40 MG TABLET PO SCH (08:10)
[2023-09-03] MEDS: CHOLECALCIFEROL 25 MCG (1000 IU) TABLET PO SCH (08:11)
[2023-09-03] MEDS: SPIRONOLACTONE 25 MG TAB PO SCH (08:11)
[2023-09-03] MEDS: methylPREDNISolone SOD SUCCI 40 MG/ML 1 ML VIAL IV SCH ×2 (08:11→21:29)
[2023-09-03] MEDS: allopurinoL 100 MG TAB PO SCH (08:11)
[2023-09-03] MEDS: NYSTATIN 100,000 UNIT/GM POWD 15 GM TOPICAL SCH ×2 (08:11→21:34)
[2023-09-03] MEDS: TAMSULOSIN 0.4 MG CAP.ER.24H PO SCH (08:11)
[2023-09-03] MEDS: HYDROPHILIC CREAM 180 GM TUBE TOPICAL SCH (08:12)
[2023-09-03] MEDS: BUDESONIDE 1 MG/2 ML NEBU INHALATION SCH ×2 (08:49→20:10)
[2023-09-03] MEDS: IPRATROPIUM-ALBUTEROL 3 ML NEB INHALATION SCH ×4 (08:49→20:10)
[2023-09-03] MEDS: FORMOTEROL FUMARATE 20 MCG/2 ML NEBU INHALATION SCH ×2 (08:49→20:10)
[2023-09-03 09:00] LABS: BUN/Creat Ratio 42.95 Ratio (12.00-20.00); Blood Urea Nitrogen 81.6 mg/dL (9.0-27.0); Calcium 9.4 mg/dL (8.7-10.3); Carbon Dioxide 31.5 mmol/L (21.6-31.8); Chloride 93 mmol/L (96-109); Glucose 135 mg/dL (70-110); Magnesium 2.3 mg/dL (1.5-2.4); Potassium 3.7 mmol/L (3.5-5.5); Sodium 139 mmol/L (135-145)
[2023-09-03] MEDS: DAPTOMYCIN IVPB SCH (09:38)
[2023-09-03] MEDS: SODIUM CHLORIDE 0.9% IVPB SCH (09:38)
--- NOTE | 2023-09-03 09:59 | CDI ---
Documentation Clarification Form Date: 09/03/2023 09:25:51 AM From: Raven Murillo RN CCDS Phone: [phone] Admit Date: 08/23/2023 01:43:00 PM Patient Name: Devyn Rodriguez Visit Number: [id number] Discharge Date: ATTENTION: The Clinical Documentation Specialists (CDI) and [facility] Coding Staff appreciate your assistance in clarifying documentation. Please respond to the clarification below the line at the bottom and electronically sign. The CDI & [facility] Coding staff will review the response and follow-up if needed. Please note: Queries are made part of the Legal Health Record. If you have any questions, please contact the author of this message via ITS. Dr. Colleen Valle There is documentation of bacteremia ID consult, 08/28. Bacteremia is considered a lab finding. Additional clarification regarding bacteremia is requested. Patient history/risk factors: 73-year-old male presents to the ED from [facility] with increasing shortness of breath, admitted with acute hypoxemic respiratory failure due to acute diastolic heart failure. Medical History: Increased weeping from both lower extremities, non-healing ulceration with fatty layer exposure left calf. Medical History: CHF, chronic respiratory failure Clinical Indicators: B/P: 08/23 B/P 126/80; HR 70; RR 20; Temp 97.7F Axillary; SpO2 100% CPAP WBC: 08/23 Wbc 13.5 Left Shift:08/23 Neutrophils 11.3 Blood Culture: 08/23 Positive Blood culture Gram positive cocci in clusters; verified 08/29 08/23 No growth after 5 days; verified 08/28 08/28 No growth after 5 days; verified 09/02 ID Consult, 08/28: Patient with gram-positive bacteremia with a question of possible skin contamination versus related to the left lower extremity cellulitis as the patient to have evidence of left lower extremity swelling redness some superficial ulceration likely from ruptured blister mild warmth and redness to touch. Medicine, 09/02: Gram-positive cocci in clusters bacteremia. IV vancomycin has been transitioned to Daptomycin treatment repeated blood cultures are negative so far.ID is following Treatment: 08/28 Vancomycin ivpb x 1; 08/29 Vancomycin ivpb x 1; 08/31 Daptomycin ivpb q24hr Antibiotics Please provide additional clarification regarding the etiology/cause and/or clinical significance of the bacteremia: [ x ] Bacteremia is due to infectious process, please specify: left lower extremity cellulitis with superficial ulceration likely from ruptured blister. [ ] Bacteremia is not clinically significant [ ] Other, please specify [ ] Unable to determine (Template Last Revised: January 2021) MTDD
[2023-09-03 10:53] LABS: Anisocytosis Slight; Basophils % (A) 0 %; Eosinophils # (A) 0.1 k/uL (0-0.7); Eosinophils % (A) 1 %; HCT 25.9 % (39.0-53.0); HGB 7.8 gm/dL (13.0-17.5); Hypochromasia Marked; Lymphocytes # (A) 0.5 k/uL (1.0-4.8); Lymphocytes % (A) 6 %; MCH 27.1 pg (25.0-35.0); MCHC 30.2 g/dL (31.0-37.0); MCV 89.7 fL (80.0-100.0); Mean Platelet Volume 8.8; Monocytes # (A) 0.5 k/uL (0-1.0); Monocytes % (A) 6 %; Neutrophils # (A) 7.1 k/uL (1.3-7.7); Neutrophils % (A) 85 %; RBC 2.89 m/uL (4.30-5.90); RDW 18.7 % (11.5-15.5); WBC 8.4 k/uL (3.8-10.6)
[2023-09-03 10:56] LABS: Platelet Count 185 k/uL (150-450)
[2023-09-03] MEDS ORDERED: POTASSIUM CHLORIDE ER 20 MEQ TAB.ER PO STA (10:56)
--- NOTE | 2023-09-03 10:57 | P.PN ---
Subjective Patient is seen in follow-up for acute kidney injury on chronic kidney disease. Renal function fairly stable. On IV Lasix. Nonoliguric. No vomiting or diarrhea. Oral intake fair. On nasal cannula. Vital signs are stable. General: No acute distress. HEENT: On NC. LUNGS: No audible rhonchi or wheezes. HEART: Rate and Rhythm are regular. ABDOMEN: Nontender, obese. EXTREMITITES: 1+ edema. Wrapped. Objective - Vital Signs Vital signs: Vital Signs Temp 97.4 F L 09/03/23 07:25 Pulse 68 09/03/23 09:12 Resp 18 09/03/23 07:25 BP 110/77 09/03/23 07:25 Pulse Ox 91 L 09/03/23 08:49 FiO2 30 09/03/23 03:27 Intake & Output 09/02/23 09/03/23 09/03/23 18:59 06:59 18:59 Intake Total 504 Output Total 900 650 Balance -396 -650 Intake: Oral 504 Output: Urine 900 650 Other: Voiding Method Indwelling Catheter Indwelling Catheter # Bowel Movements 1 1 - Labs CBC & Chem 7: 09/01/23 06:40 09/03/23 05:30 Labs: Abnormal Lab Results - Last 24 Hours (Table) 09/02/23 09/02/23 09/02/23 Range/Units 05:42 12:50 17:11 Chloride 91 L (96-109) mmol/L Carbon Dioxide 33.0 H (21.6-31.8) mmol/L Anion Gap 13.00 H (4.00-12.00) mmol/L BUN 70.4 H (9.0-27.0) mg/dL Creatinine 1.8 H (0.6-1.5) mg/dL Est GFR (CKD-EPI) 39 L (>=60) BUN/Creatinine Ratio 39.11 H (12.00-20.00) Ratio Glucose 134 H (70-110) mg/dL POC Glucose (mg/dL) 183 H 165 H (70-110) mg/dL 09/02/23 09/03/23 09/03/23 Range/Units 20:24 05:30 07:19 Chloride 93 L (96-109) mmol/L Carbon Dioxide (21.6-31.8) mmol/L Anion Gap 14.50 H (4.00-12.00) mmol/L BUN 81.6 H (9.0-27.0) mg/dL Creatinine 1.9 H (0.6-1.5) mg/dL Est GFR (CKD-EPI) 37 L (>=60) BUN/Creatinine Ratio 42.95 H (12.00-20.00) Ratio Glucose 135 H (70-110) mg/dL POC Glucose (mg/dL) 173 H 153 H (70-110) mg/dL Microbiology - Last 24 Hours (Table) 08/28/23 11:37 Blood Culture - Final Blood Assessment and Plan Plan: Assessment: 1. Acute kidney injury secondary to ATN secondary to cardiorenal syndrome. Renal function stable. Creatinine stable at 1.9 today. Nonoliguric. No proteinuria on UA. No hydronephrosis noted on kidney ultrasound. 2. Chronic kidney disease stage III A with baseline creatinine 1-1.5. Suspect nephrosclerosis. 3. Acute on chronic diastolic CHF. 4. Volume overload. Improving with diuresis. 5. Acute hypoxic respiratory failure. 6. Hypokalemia from diuresis. Replaced. 7. Gram-positive bacteremia with lower extremity cellulitis on antibiotics. ID following. 8. Anemia of chronic kidney disease. On Aranesp. s/p IV iron. Plan: Stop IV Lasix. Add torsemide 40 mg qday. Replace potassium. Low-salt diet and 1500 mL fluid restriction. Will benefit from [id number] once infection resolves.
[2023-09-03 12:09] LABS: Glucose,Whole Blood 135 mg/dL (70-110)
--- NOTE | 2023-09-03 12:22 | P.PN ---
Subjective Progress Note Date: 09/03/23 Principal diagnosis: Bacteremia left leg wound and cellulitis Patient is a 73-year-old male with a past medical history significant for hypertension hyperlipidemia sleep apnea reflux and asthma presenting to the hospital for shortness of breath and hypoxemia requiring BiPAP patient did have blood culture drawn can be positive with gram-positive cocci and also noticed to have ulceration and erythema to the left lower extremity. On today's evaluation that is 09/03/2023, the patient continues to be afebrile, the patient is breathing on 3lnc oxygen the patient is lethargic today and did not provide any history no vomiting or diarrhea has been reported by the nursing staff Patient did have white count 8.4, creatinine is 1.9, repeat blood culture negative Objective - Vital Signs Vital signs: Vital Signs Temp 97.4 F L 09/03/23 07:25 Pulse 68 09/03/23 09:12 Resp 18 09/03/23 07:25 BP 110/77 09/03/23 07:25 Pulse Ox 91 L 09/03/23 08:49 FiO2 30 09/03/23 03:27 Intake & Output 09/02/23 09/03/23 09/03/23 18:59 06:59 18:59 Intake Total 504 Output Total 900 650 Balance -396 -650 Intake: Oral 504 Output: Urine 900 650 Other: Voiding Method Indwelling Catheter Indwelling Catheter # Bowel Movements 1 1 - Exam GENERAL DESCRIPTION: An elderly male lying in bed in no distress RESPIRATORY SYSTEM: Unlabored breathing , decreased breath sounds at bases HEART: S1 S2 regular rate and rhythm , ABDOMEN: Soft , no tenderness EXTREMITIES: Left leg is currently dressed no drainage on the dressing - Labs CBC & Chem 7: 09/03/23 05:30 09/03/23 05:30 Labs: Abnormal Lab Results - Last 24 Hours (Table) 09/02/23 09/02/23 09/02/23 Range/Units 12:50 17:11 20:24 RBC (4.30-5.90) m/uL Hgb (13.0-17.5) gm/dL Hct (39.0-53.0) % MCHC (31.0-37.0) g/dL RDW (11.5-15.5) % Lymphocytes # (1.0-4.8) k/uL Chloride (96-109) mmol/L Anion Gap (4.00-12.00) mmol/L BUN (9.0-27.0) mg/dL Creatinine (0.6-1.5) mg/dL Est GFR (CKD-EPI) (>=60) BUN/Creatinine Ratio (12.00-20.00) Ratio Glucose (70-110) mg/dL POC Glucose (mg/dL) 183 H 165 H 173 H (70-110) mg/dL 09/03/23 09/03/23 09/03/23 Range/Units 05:30 05:30 07:19 RBC 2.89 L (4.30-5.90) m/uL Hgb 7.8 L (13.0-17.5) gm/dL Hct 25.9 L (39.0-53.0) % MCHC 30.2 L (31.0-37.0) g/dL RDW 18.7 H (11.5-15.5) % Lymphocytes # 0.5 L (1.0-4.8) k/uL Chloride 93 L (96-109) mmol/L Anion Gap 14.50 H (4.00-12.00) mmol/L BUN 81.6 H (9.0-27.0) mg/dL Creatinine 1.9 H (0.6-1.5) mg/dL Est GFR (CKD-EPI) 37 L (>=60) BUN/Creatinine Ratio 42.95 H (12.00-20.00) Ratio Glucose 135 H (70-110) mg/dL POC Glucose (mg/dL) 153 H (70-110) mg/dL 09/03/23 Range/Units 12:07 RBC (4.30-5.90) m/uL Hgb (13.0-17.5) gm/dL Hct (39.0-53.0) % MCHC (31.0-37.0) g/dL RDW (11.5-15.5) % Lymphocytes # (1.0-4.8) k/uL Chloride (96-109) mmol/L Anion Gap (4.00-12.00) mmol/L BUN (9.0-27.0) mg/dL Creatinine (0.6-1.5) mg/dL Est GFR (CKD-EPI) (>=60) BUN/Creatinine Ratio (12.00-20.00) Ratio Glucose (70-110) mg/dL POC Glucose (mg/dL) 135 H (70-110) mg/dL Microbiology - Last 24 Hours (Table) 08/28/23 11:37 Blood Culture - Final Blood Assessment and Plan (1) Left leg cellulitis Current Visit: Yes Status: Acute Code(s): L03.116 - CELLULITIS OF LEFT LOWER LIMB SNOMED Code(s): 32099387531695245 (2) Bacteremia Current Visit: Yes Status: Acute Code(s): R78.81 - BACTEREMIA SNOMED Code(s): 0511963 (3) Chronic venous hypertension (idiopathic) with ulcer and inflammation of bilateral lower extremity Current Visit: Yes Status: Acute Code(s): I87.333 - CHRONIC VENOUS HTN W ULCER AND INFLAM OF BILATERAL LOW EXTRM SNOMED Code(s): 531135811266326 Plan: 1patient with gram-positive bacteremia in this patient has been the hospital for about 5 days with initial presentation with increasing shortness of breath and hypoxemia has been diagnosed with a CHF exacerbation with a question of possible skin contamination versus related to the left lower extremity cellulitis as the patient to have evidence of left lower extremity swelling redness some superficial ulceration likely from ruptured blister mild warmth and redness to touch. 2blood cultures has been repeated and so far negative 3local wound care to the left extremity with a dry Aquacel dressing and Toribio wrap change every 48 hours 4 patient remains to be afebrile and white count is normal, will continue with daptomycin , however plan to transition to oral doxycycline on discharge Dictation was produced using [employer] dictation software. please excuse any grammatical, word or spelling errors. Time with Patient: Less than 30
--- NOTE | 2023-09-03 17:10 | P.PN ---
Subjective Progress Note Date: 09/03/23 I am seeing this patient in new consultation today 09/01/2023 for acute hypoxemic and hypercapnic respiratory failure requiring BiPAP. Patient is a 73-year-old white male who is fairly debilitated, he has past medical history of asthma, obstructive sleep apnea with CPAP, chronic oxygen dependence, hyper lipidemia, hypertension, congestive heart failure, paroxysmal atrial fibrillation, and his remote ex-smoker over 30 years ago. Patient did have a recent hospitalization last month for diastolic congestive heart failure. Patient reportedly currently resides at a local [facility]. Patient was refusing to w ear his CPAP at night. When he awoke, he was found to be confused with a pulse oximeter reading in the 70s. He was transferred to [facility] by EMS back on August 23. Chest x-ray on arrival was consistent with pulmonary edema. Patient is receiving Lasix 60 mg twice a day. Urine output has been adequate. Echocardiogram this admission shows a preserved left ventricular ejection fraction of 50-55%. Exam was otherwise limited. Most recent CBC from yesterday shows a WBC count of 7.1, hemoglobin 8.2, hematocrit 25.9, and platelets 108,000. Most recent BMP from yesterday shows sodium 134, potassium 3.5, chloride 92, serum bicarbonate 35, UN 76, creatinine 1.74, glucose 98. Am monia level was elevated at 45, the patient's been started on lactulose. AST and ALP are not elevated. ALP 223. On arrival, the patient did have an isolated positive blood culture showing gram-positive cocci in clusters. Patient was initially started on vancomycin, but his renal function was poor, and he was switched to daptomycin. Repeat blood cultures have remained negative. Patient is currently sitting up in bed, on BiPAP with settings 12/5 and an FiO2 of 30%. He is achieving tidal volumes around 500 and respiratory rate is 25. He is still quite confused. Bilateral lower extremities are wrapped. Patient does have lower extremity wounds. He also has a urinary catheter, there was reportedly inserted for urinary retention. Urinalysis not concerning for UTI. Patient is afebrile. Hemodynamically stable at this time. On today's evaluation of 09/02/2023, the patient is doing well. The patient is despite the diuretics and the patient has been in a negative fluid balance of at least 4.3 L over the past 24 hours. The patient's blood work shows a BUN of 70 with a creatinine of 1.8 and sodium levels at 138. Noted the patient has chronic kidney disease. He is currently on DuoNeb updrafts, he is also on IV Solu-Medrol 40 mg every 8 hours and the patient is also on diuretics receiving Lasix 60 mg IV every 12 hours. The patient is also on oxygen at 4 L/m nasal cannula. On today's evaluation of 09/03/2023, the patient is on 3 L of oxygen by nasal cannula. Continues to diurese with Lasix and the patient has been switched to torsemide by nephrology. Fluid balance is -1.3 L for the past 24 hours. BUN is at 81 with a creatinine of 1.9 and sodium levels of 139, WBC was at 8.4 with a hemoglobin of 7.8. No chest pain. No altered mentation. The patient is currently on torsemide 40 mg by mouth daily. The patient remains on anticoagulations with around 20 to the 50 mg by mouth daily. Infectious diseases on the case and the patient is being treated for some left lower extremity. The patient has chronic venous stasis in bilateral lower extremity edema and the patient is currently on daptomycin. The patient gram-positive bacteremia, awaiting final cultures. Note that the repeat cultures are negative on 08/20/2023. Infectious diseases on the case. Objective - Vital Signs Vital signs: Vital Signs Temp 97.4 F L 09/03/23 07:25 Pulse 68 09/03/23 09:12 Resp 18 09/03/23 07:25 BP 110/77 09/03/23 07:25 Pulse Ox 91 L 09/03/23 08:49 FiO2 30 09/03/23 03:27 Intake & Output 09/02/23 09/03/23 09/03/23 18:59 06:59 18:59 Intake Total 504 Output Total 900 650 Balance -396 -650 Intake: Oral 504 Output: Urine 900 650 Other: Voiding Method Indwelling Catheter Indwelling Catheter # Bowel Movements 1 1 - Exam GENERAL EXAM: Alert but disoriented, 73-year-old morbidly obese male, comfor table in no apparent distress. HEAD: Normocephalic and atraumatic EYES: Normal reaction of pupils, equal size. NOSE: Clear with pink turbinates. THROAT: No erythema or exudates. NECK: No masses, no JVD. CHEST: No chest wall deformity. LUNGS: Equal air entry with bibasilar inspiratory crackles. Mild expiratory wheezes heard throughout. Currently on BiPAP. No conversational dyspnea or accessory muscle use.. CVS: S1 and S2 normal with no audible murmur, regular rhythm. No extra heart sounds ABDOMEN obese abdomen, no hepatosplenomegaly, active bowel sounds, no guarding or rigidity. SPINE: No scoliosis or deformity SKIN: right lower extremity partial thickness ulceration, legs are wrapped with Toribio bandages CENTRAL NERVOUS SYSTEM: No focal deficits, tone is normal in all 4 extremities. EXTREMITIES: There is bilateral lower extremity nonpitting edema. No clubbing, or cyanosis. Peripheral pulses are intact. - Labs CBC & Chem 7: 09/03/23 05:30 09/03/23 05:30 Labs: Abnormal Lab Results - Last 24 Hours (Table) 09/02/23 09/02/23 09/02/23 Range/Units 12:50 17:11 20:24 RBC (4.30-5.90) m/uL Hgb (13.0-17.5) gm/dL Hct (39.0-53.0) % MCHC (31.0-37.0) g/dL RDW (11.5-15.5) % Lymphocytes # (1.0-4.8) k/uL Chloride (96-109) mmol/L Anion Gap (4.00-12.00) mmol/L BUN (9.0-27.0) mg/dL Creatinine (0.6-1.5) mg/dL Est GFR (CKD-EPI) (>=60) BUN/Creatinine Ratio (12.00-20.00) Ratio Glucose (70-110) mg/dL POC Glucose (mg/dL) 183 H 165 H 173 H (70-110) mg/dL 09/03/23 09/03/23 09/03/23 Range/Units 05:30 05:30 07:19 RBC 2.89 L (4.30-5.90) m/uL Hgb 7.8 L (13.0-17.5) gm/dL Hct 25.9 L (39.0-53.0) % MCHC 30.2 L (31.0-37.0) g/dL RDW 18.7 H (11.5-15.5) % Lymphocytes # 0.5 L (1.0-4.8) k/uL Chloride 93 L (96-109) mmol/L Anion Gap 14.50 H (4.00-12.00) mmol/L BUN 81.6 H (9.0-27.0) mg/dL Creatinine 1.9 H (0.6-1.5) mg/dL Est GFR (CKD-EPI) 37 L (>=60) BUN/Creatinine Ratio 42.95 H (12.00-20.00) Ratio Glucose 135 H (70-110) mg/dL POC Glucose (mg/dL) 153 H (70-110) mg/dL Microbiology - Last 24 Hours (Table) 08/28/23 11:37 Blood Culture - Final Blood Assessment and Plan Assessment: Acute exacerbation of diastolic CHF, with significant cardiomegaly, pulmonary vascular congestion, and small effusions. Echocardiogram from 08/25/23 showed ejection fraction of left ventricle in the order of 50-55%, and otherwise was a limited exam Acute exacerbation of chronic bronchial asthma/COPD Acute on chronic hypoxemic and hypercapnic respiratory failure, currently on BiPAP Bacteremia, original blood cultures were positive with gram-positive cocci in clusters. Repeat cultures have been negative so far. Paroxysmal A. fib maintenance and he is admitted on anticoagulation with with Xarelto Acute on chronic kidney disease, patient has a history of chronic kidney disease stage III, creatinine is improving and the creatinine is down to 1.6 Acute metabolic encephalopathy, probably related to a combination of hypercapnic respiratory failure and possibly hyperammonemia Anemia of chronic disease. Thrombocytopenia Obstructive sleep apnea syndrome, maintained on CPAP. Chronic venous stasis and right lower extremity wounds Paroxysmal atrial fibrillation. Benign essential hypertension. History of hyperlipidemia. Morbid obesity, with a BMI of 45.7 kg/m Plan: Patient is responding nicely to diuretics. Patient is decision torsemide 40 mg by mouth daily Renal function is stable Gram-positive cocci in the bloodand the cultures on 08/23/2023. Subsequent blood cultures are negative and the patient is currently on daptomycin Patient is a negative fluid balance Patient has adequate urine output Repeat chest x-ray showing hepatomegaly and pulmonary vascular congestion. Overall appearance is still similar. Monitor hemoglobin Continue BiPAP at bedtime Continue diuretics Continue bronchodilators, formoterol, budesonide Continue Solu-Medrol He has diastolic heart failure and fluid overload. Antibiotic management is per ID. We'll continue to follow.
[2023-09-03 17:19] LABS: Glucose,Whole Blood 165 mg/dL (70-110)
[2023-09-03] MEDS: RIVAROXABAN 15 MG TAB PO SCH (17:27)
[2023-09-03 20:24] LABS: Glucose,Whole Blood 156 mg/dL (70-110)
[2023-09-03] MEDS: GABAPENTIN 300 MG CAP PO SCH (21:27)
[2023-09-03] MEDS: MONTELUKAST 10 MG TAB PO SCH (21:27)
[2023-09-03] MEDS: SERTRALINE 100 MG TAB PO SCH (21:27)
[2023-09-04 07:05] LABS: Glucose,Whole Blood 152 mg/dL (70-110)
--- NOTE | 2023-09-04 07:05 | P.PN ---
Subjective Progress Note Date: 09/03/23 HISTORY OF PRESENT ILLNESS: This is a 73-year-old male with a previous medical history significant for hypertension and hypertensive cardiovascular disease, hyperlipidemia, obesity with obstructive sleep apnea and obesity hypoventilation syndrome, chronic diastolic heart failure, asthma, hypothyroidism, anxiety and depressive disorder, peripheral neuropathy, patient was recently discharged from [facility] after he was admitted to the hospital for acute diastolic heart failure and pulmonary edema, and he was discharged back to [facility] on the , patient was doing fine and he was seen on Friday he was doing fine suddenly developed to have a significant weeping from both lower extremities despite taken spironolactone as well as Lasix and Farxiga, patient has been on oxygen at 4 L Cannula, patient weight has been increased, with increased weeping from both lower extremities, the nursing staff came to see the patient in the morning and he was unresponsive with oxygen saturation in the low 80s, 911 was called and the patient was. On the high flow oxygen he went up to 88%, patient was transported to the emergency department at [facility], had a chest x- ray that showed bulbar edema, he was placed on a BiPAP, with Lasix 40 mg IV push, he felt much better he is sitting down in bed, he continues to be somewhat short of breath, he continues to have significant swelling in both lower extremities with minimal denuded blister in the left lower extremity, he does appear to have a chronic stasis edema, patient appears to be more awake and alert at the time of evaluation in the ER. Patient will be admitted to the hospital for acute diastolic heart failure with The BiPAP, Would Be Started on Lasix 80 Mg IV Push Every 12 Hours. 08/24: Patient is feeling better today, he continues to be on 4 L nasal cannula, he denies any chest pain, isosorbide, uses the BiPAP on and off, he is diuresing with Lasix 80 mg IV push every 12 hours, he is continued for sick at 10 mg every day, spironolactone 25 mg once every day, monitor the patient input and output and daily weight, follow the patient very closely. Cardiology is to see the patient as he is complaining of chest pin suggestive of CAD 08/25: Patient continues to have slow improvement of his breathing status. Patient is on BiPAP during the night with pulse ox of 94%, currently on 4 L nasal cannula with pulse ox of 97%. Heart rate is mostly in the 50s and 60s, blood pressure 104/56. Repeat blood work reveals WBC 10.1, hemoglobin 8.4, platelet count 103. Sodium 138, potassium 3.9, BUN 49 creatinine 1.51. CO2 is 31. Limited echocardiogram reveals EF of 50-55%. Patient has a negative fluid balance. Weights do not appear to be accurate. Cardiology has decreased frequency of IV Lasix 80 mg 2 once daily and continued Zaroxolyn for today. 08/26: Patient has been seen by cardiology and IV Lasix has been transitioned to oral at 80 mg daily and continued on Zaroxolyn 5 mg daily. He has had increase in his BUN to 54 and creatinine 1.7. His breathing status seems to be stable. He is using BiPAP when sleeping at nighttime and on nasal cannula during the day at 4 L. His heart rate is running in the 70s, blood pressure 121/72. Other blood work reveals hemoglobin is stable at 8.7, WBC 16.4 platelet count 86. 08/27: Patient has been seen by cardiology today with recommendations to continue oral Lasix at 80 mg daily and metolazone 5 mg daily. Blood pressures been on the soft side 94/52, heart rate in the 60s and 70s. He has been afebrile, pulse ox 90% on 4 L nasal cannula. Repeat blood work reveals WBC 13.3, hemoglobin 8.4, platelet count 87. Sodium 134, BUN 61 creatinine 1.89. P atient states that in general he does not feel well. Anemia workup added. 08/28: Consults were added yesterday afternoon for Wound Center and infectious disease. Patient has been started on IV vancomycin. He has had a slight bump in his renal function with BUN 63 creatinine 1.91. Cardiology has discontinued Zaroxolyn. Hemoglobin is 8.1 and anemia workup was ordered yesterday. Patient's blood pressures been 97/50 heart rate in the 70s and 80s. Patient is utilizing BiPAP when sleeping or at nighttime. During the day he is on 4 L nasal cannula with pulse ox 97%. Patient continues to complain of generalized fatigue and weakness and not feeling well in general. Cough is improved. 08/29: First blood culture Gram stain was positive for gram-positive cocci in clusters. Culture is showing no growth after 72 hours. He had a second blood culture obtained which was finalized with no growth at 5 days. A repeat blood culture was obtained yesterday and is status received. Bacteremia is possible contamination but patient is currently on vancomycin as advised by Dr. Valle. He has been seen by Wound Center with recommendations for left lower extremity: Honey gel, border foam wrap with Toribio wrap to control swelling. Right lower extremity apply triad and rolled gauze and wrap with Toribio wrap. Legs are to be elevated for 30 minutes at least 3 times a day. Patient is seen today in rec liner with his legs elevated. He is off the BiPAP for now. He is utilizing BiPAP for nighttime and when sleeping. He has been afebrile, heart rate in the 70s, blood pressure 96/50. Repeat blood work reveals WBC 9.2, hemoglobin 8.1, platelet count 91. Sodium 133, potassium 3.3, chloride 90, CO2 34, BUN 67 creatinine 2.05.cardiology has discontinued Zaroxolyn and continue patient on Lasix 80 mg oral daily as well as spironolactone 12.5 mg daily. Patient to be transferred to [facility] floor with telemetry. 08/30: Patient was seen in consultation by hematology oncology due to concern of anemia with iron deficiency and possible myelodysplasia, this is likely related to any iron deficiency anemia due to chronic kidney disease, he may need to have some workup as an outpatient when the anemia is better, but at this point in time we'll continue treat his infection, continue to treat the patient supportive patient very closely, he may need to go back on iron infusion when the patient the infection is better, and he may need to go on erythropoietin according to hematology oncology down the line to treat both the anemia of chronic kidney disease and possible underlying MDS, to have some issues generalized weakness, patient not able template very well, he continues to be on IV diuretics, we will repeat his labs, patient will likely be transferred back to [facility] on the [place] in the next 1 or 2 days. 08/31: Patient is laying down in bed he appears to be in moderate respiratory distress since we cut down on his Lasix to 40 mg once every day, he did diurese about 300 mL in the back today after the oral Lasix, I will put the patient back on his BiPAP, we will switch the patient to Lasix 60 mg IV push every 12 hours, we'll consult pulmonary medicine, continue to monitor the patient input and output and daily weight, we will do a stat chest x-ray, nephrology consultation for acute on chronic kidney disease as well overall prognosis continue to be guarded patient is no code at this point in time we will continue the aggressive treatment. 09/01: Patient continues on IV Lasix 60 mg every 12 hours. This morning his had a negative output [id number]. Daily weights are not accurate. Blood pressure 111/60, heart rate in the 60s to 80s, pulse ox 95% on 4 L nasal cannula. Patient is se en by pulmonary medicine and patient has been started on IV Solu-Medrol. We will add in NovoLog scale. Patient is also followed by nephrology with recommendations to maintain IV Lasix, low salt diet and 1500 mL fluid restriction. Low potassium is been replaced. Aranesp added and recommended SGLT2. He is on Farxiga that has been on hold. Patient has been seen by oncology, MM a is pending. Recommendations for supplementation. Antibiotics over the weekend were transitioned from vancomycin to daptomycin.. 09/02: Oncology has ordered Ferrlecit 3 doses. Patient remains afebrile, heart rate in the 70s and 80s, blood pressure 120/72, pulse ox 94% on 4 L nasal cannula. Patient continues to have lower extremity edema and some shortness of breath but all symptoms be very slowly improving. He is on IV Solu-Medrol 60 mg every 6 hours which will be decreased to 40 mg every 8 hours. He is followed closely by pulmonary medicine. Repeat blood work reveals sodium 137, potassium 3.9, chloride 91, CO2 33, creatinine 1.8. Blood glucose running between 149 and 188. A1c is 5.4. 09/03: Patient found sleeping in bed. He awakens easily to verbal stimuli. Dr. Valle has recommended to continue Daptomycin ad transition to oral doxy at the time of discharge. Patient remains afebrile, heart rate in the 60s, blood pressure 120/59 and pulse ox 94% on 3 L nasal cannula. Patient states that he h as been fatigued all day. He is utilizing BiPAP at bedtime. We'll plan to decrease Solu-Medrol to 40 mg every 12 hours. Noted that PT and OT is not following the patient will ask for them to see him prior to discharge. Patient ate a few bites for breakfast and a better for lunch today. Anticipate discharge in the next 24-48 hours. Discharge plan is to return to [facility] to complete his subacute rehab REVIEW OF SYSTEMS: Constitutional: No documented fever, no chills, no night sweats. No weight change. No weakness, fatigue or lethargy. No daytime sleepiness. HEENT: No headache. No blurred vision or double vision, no loss of vision. Chronic loss of Hearing, no ringing in the ears, no dizziness. No nasal drainage or congestion. No epistaxis. No sore throat. Lungs: positive for shortness of breathimproving, occasional cough, minimal sputum production. No wheezing. Reports dyspnea with activity. Cardiovascular: Denies chest pain, positive for lower extremity edema. No pa lpitations. No paroxysmal nocturnal dyspnea. No orthopnea. No lightheadedness or dizziness. No syncopal episodes. Abdominal: Denies abdominal pain. No nausea, vomiting. No diarrhea. No constipation. No bloody or tarry stools reports loss of appetite. Genitourinary: No dysuria, increased frequency, urgency. No urinary retention. Musculoskeletal: No myalgias. positive for muscle weakness, positive for gait dysfunction, positive for frequent falls. positive for back pain. No neck pain, bilateral hip pain Integumentary: No wounds, no lesions. No rash or pruritus. No unusual bruisin g. No change in hair or nails. Neurologic: No aphasia. No facial droop. Mild chronic change in mentation. No head injury. No headache. No paralysis. No paresthesia. Psychiatric: No depression. No anxiety. No mood swings. Endocrine: No abnormal blood sugars. No weight change. PHYSICAL EXAMINATION: General: 72-year-old male lying down in a recliner in no respiratory distress HEENT: Head is atraumatic, normocephalic, pupils were equal round reactive to light and recommendation, extraocular muscle movement were intact, sclera nonicteric, conjunctivae were pale, mucous membranes of the mouth are somewhat dry. Neck: Supple, no JVP, normal carotid upstroke bilaterally, no lymphadenopathy. Chest: Decreased breath sounds at the bases, few rhonchi, no expiratory wheezes, no chest wall tenderness, no intercostal retractions. Heart: First heart sound is normal, second heart sound is normal, there is systolic ejection murmur 2/6 located in the left sternal border. Abdomen: Soft, distended with abdomina wall edema and Ascites positive bowel sounds, obese. Extremities: There is +1 edema no calf tenderness DP +2 bilaterally, there is bilateral scabbed lesions in both shins , wrapped with kirlex wraps Neurologic examination: Patient is awake alert and oriented X 2, cranial nerves II-12 appear grossly intact, muscle power were 3out of 5 in upper extremities and 3/5 in bilateral lower extremities ASSESSMENT AND PLAN: 1. Acute hypoxemic respiratory failure due to acute on chronic diastolic heart failure and COPD wit RAMYA and OHS . Pulmonary evaluation stat chest x-ray, monitor input and output and daily weight, continue spironolactone 12.5 mg orally once every day, metoprolol 37.5 mg orally twice every day, patient is off Lasix, continue Farxiga 5 mg daily has been on hold. 2. COPD/moderate persistent asthma and not in exacerbation with chronic hypoxemic respiratory failure continue oxygen support continue DuoNeb 3 mg nebulization 4 times every day. Decrease IV Solu-Medrol to 40 mg every 12 hours. Pulmonary consult 3. Paroxysmal atrial fibrillation/ Flutter. Continue patient on metoprolol 37.5 mg orally twice every day, on Xarelto 15 mg orally once every day 4. Hypertension and hypertensive cardiovascular disease. Continue patient on metoprolol 37.5 mg orally twice every day, monitor the patient blood pressure very closely. 5. Hyperlipidemia. Continue patient on atorvastatin 20 mg orally once every day, monitor lipid panel, keep LDL 55-70. 6. Enlarged prostate. Continue patient on tamsulosin 0.4 mg orally once every day. 7. Anxiety disorder. Continue patient on sertraline 100 mg orally once every day. 8. Neuropathy. Continue patient on gabapentin 300 mg at bedtime. 9. Thrombocytopenia. Likely related to alcoholic fatty liver disease and possible liver cirrhosis patient did have an MRCP in the past that showed fatty liver as well as mild splenomegaly cannot entirely rule out myelodysplasia, we will check US of the abdomen for possible ascites . Oncology consult appreciated. 10. Acute kidney injury on chronic kidney disease stage III a. Continue to monitor renal function, avoid nephrotoxic agents, nephrology consultation. Continue IV Lasix, low salt diet, 1500 mL fluid restriction 11. Depression. we will continue with Sertraline 100 mg po daily 12. Wounds to the bilateral lower extremities/cellulitis: Nonhealing ulcer left calf, right lower extremity, chronic venous insufficiency. Consult with Wound Center and infectious disease, continue with current local care, continue daptomycin.. 13. Gram-positive bacteremia possible contamination versus related to cellulitis of the lower extremities. IV vancomycin has been transitioned to daptomycin treatment repeated blood cultures are negative so far.ID is following . Plan for doxycycline at the time of discharge 14. Anemia and thrombocytopenia. Oncology consult appreciated. MMA is pending. DVT prophylaxis. Continue Xarelto 15 mg po daily 15. GI prophylaxis. Continue patient on Protonix 40 mg orally once every day. 16. PT evaluation and make up worker consult. Discharge planning to return to [facility]. 17. DO NOT RESUSCITATE. 18. Obesity with obstructive sleep apnea and obesity hypoventilation syndrome. Continue patient on BiPAP. 19. Overall prognosis is guarded Impression and plan of care have been directed as dictated by the signing physician. Concepción Perkins nurse practitioner acting as scribe for signing physic namrata. Objective - Vital Signs Vital signs: Vital Signs Temp 97.4 F L 09/03/23 07:25 Pulse 68 09/03/23 09:12 Resp 18 09/03/23 07:25 BP 110/77 09/03/23 07:25 Pulse Ox 91 L 09/03/23 08:49 FiO2 30 09/03/23 03:27 Intake & Output 09/02/23 09/03/23 09/03/23 18:59 06:59 18:59 Intake Total 504 Output Total 900 650 Balance -396 -650 Intake: Oral 504 Output: Urine 900 650 Other: Voiding Method Indwelling Catheter Indwelling Catheter # Bowel Movements 1 1 - Labs CBC & Chem 7: 09/03/23 05:30 09/03/23 05:30 Labs: Abnormal Lab Results - Last 24 Hours (Table) 09/02/23 09/02/23 09/02/23 Range/Units 05:42 12:50 17:11 RBC (4.30-5.90) m/uL Hgb (13.0-17.5) gm/dL Hct (39.0-53.0) % MCHC (31.0-37.0) g/dL RDW (11.5-15.5) % Lymphocytes # (1.0-4.8) k/uL Chloride 91 L (96-109) mmol/L Carbon Dioxide 33.0 H (21.6-31.8) mmol/L Anion Gap 13.00 H (4.00-12.00) mmol/L BUN 70.4 H (9.0-27.0) mg/dL Creatinine 1.8 H (0.6-1.5) mg/dL Est GFR (CKD-EPI) 39 L (>=60) BUN/Creatinine Ratio 39.11 H (12.00-20.00) Ratio Glucose 134 H (70-110) mg/dL POC Glucose (mg/dL) 183 H 165 H (70-110) mg/dL 09/02/23 09/03/23 09/03/23 Range/Units 20:24 05:30 05:30 RBC 2.89 L (4.30-5.90) m/uL Hgb 7.8 L (13.0-17.5) gm/dL Hct 25.9 L (39.0-53.0) % MCHC 30.2 L (31.0-37.0) g/dL RDW 18.7 H (11.5-15.5) % Lymphocytes # 0.5 L (1.0-4.8) k/uL Chloride 93 L (96-109) mmol/L Carbon Dioxide (21.6-31.8) mmol/L Anion Gap 14.50 H (4.00-12.00) mmol/L BUN 81.6 H (9.0-27.0) mg/dL Creatinine 1.9 H (0.6-1.5) mg/dL Est GFR (CKD-EPI) 37 L (>=60) BUN/Creatinine Ratio 42.95 H (12.00-20.00) Ratio Glucose 135 H (70-110) mg/dL POC Glucose (mg/dL) 173 H (70-110) mg/dL 09/03/23 Range/Units 07:19 RBC (4.30-5.90) m/uL Hgb (13.0-17.5) gm/dL Hct (39.0-53.0) % MCHC (31.0-37.0) g/dL RDW (11.5-15.5) % Lymphocytes # (1.0-4.8) k/uL Chloride (96-109) mmol/L Carbon Dioxide (21.6-31.8) mmol/L Anion Gap (4.00-12.00) mmol/L BUN (9.0-27.0) mg/dL Creatinine (0.6-1.5) mg/dL Est GFR (CKD-EPI) (>=60) BUN/Creatinine Ratio (12.00-20.00) Ratio Glucose (70-110) mg/dL POC Glucose (mg/dL) 153 H (70-110) mg/dL Microbiology - Last 24 Hours (Table) 08/28/23 11:37 Blood Culture - Final Blood
[2023-09-04] MEDS: IPRATROPIUM-ALBUTEROL 3 ML NEB INHALATION SCH ×3 (07:51→16:49)
[2023-09-04] MEDS: FORMOTEROL FUMARATE 20 MCG/2 ML NEBU INHALATION SCH (07:51)
[2023-09-04] MEDS: BUDESONIDE 1 MG/2 ML NEBU INHALATION SCH (07:51)
[2023-09-04] MEDS: INSULIN ASPART (NovoLOG) 100 UNIT/ML VIAL SQ SCH ×2 (08:40→13:18)
[2023-09-04] MEDS: CHOLECALCIFEROL 25 MCG (1000 IU) TABLET PO SCH (08:41)
[2023-09-04] MEDS: TAMSULOSIN 0.4 MG CAP.ER.24H PO SCH (08:41)
[2023-09-04] MEDS: PANTOPRAZOLE 40 MG TABLET PO SCH (08:41)
[2023-09-04] MEDS: METOPROLOL TARTRATE 12.5 MG TAB PO SCH (08:41)
[2023-09-04] MEDS: LACTULOSE 20 GM/30 ML CUP PO SCH (08:41)
[2023-09-04] MEDS: SPIRONOLACTONE 25 MG TAB PO SCH (08:42)
[2023-09-04] MEDS: CYANOCOBALAMIN 500 MCG TAB PO SCH (08:42)
[2023-09-04] MEDS: methylPREDNISolone SOD SUCCI 40 MG/ML 1 ML VIAL IV SCH (08:42)
[2023-09-04] MEDS: allopurinoL 100 MG TAB PO SCH (08:42)
[2023-09-04] MEDS: NYSTATIN 100,000 UNIT/ML SUSP 500,000 UNIT/5 ML CUP PO SCH (08:43)
[2023-09-04] MEDS: NYSTATIN 100,000 UNIT/GM POWD 15 GM TOPICAL SCH (08:44)
[2023-09-04] MEDS: HYDROPHILIC CREAM 180 GM TUBE TOPICAL SCH (08:44)
[2023-09-04] MEDS: SODIUM CHLORIDE 0.9% IVPB SCH (08:47)
[2023-09-04] MEDS: DAPTOMYCIN IVPB SCH (08:47)
[2023-09-04 08:57] LABS: BUN/Creat Ratio 43.55 Ratio (12.00-20.00); Blood Urea Nitrogen 87.1 mg/dL (9.0-27.0); Calcium 9.5 mg/dL (8.7-10.3); Chloride 98 mmol/L (96-109); Glucose 132 mg/dL (70-110); Magnesium 2.5 mg/dL (1.5-2.4); Potassium 4.6 mmol/L (3.5-5.5); Sodium 143 mmol/L (135-145)
[2023-09-04] MEDS ORDERED: TORSEMIDE 20 MG TAB PO SCH (09:00)
[2023-09-04 12:02] LABS: Glucose,Whole Blood 152 mg/dL (70-110)
--- NOTE | 2023-09-04 12:25 | P.PN ---
Subjective Patient is seen in follow-up for acute kidney injury on chronic kidney disease. Renal function fairly stable. On torsemide. Nonoliguric. No vomiting or diarrhea. Oral intake fair. On nasal cannula. Hemodynamically stable. Vital signs are stable. General: No acute distress. HEENT: On NC. LUNGS: No audible rhonchi or wheezes. HEART: Rate and Rhythm are regular. ABDOMEN: Nontender, obese. EXTREMITITES: 1+ edema. Wrapped. Objective - Vital Signs Vital signs: Vital Signs Temp 98.0 F 09/04/23 07:06 Pulse 60 09/04/23 11:39 Resp 19 09/04/23 07:06 BP 149/61 09/04/23 07:06 Pulse Ox 98 09/04/23 07:06 FiO2 30 09/04/23 04:22 Intake & Output 09/03/23 09/04/23 09/04/23 18:59 06:59 18:59 Output Total 725 700 725 Balance -725 -700 -725 Output: Urine 725 700 725 Other: Voiding Method Indwelling Catheter Indwelling Catheter Indwelling Catheter # Bowel Movements 1 - Labs CBC & Chem 7: 09/03/23 05:30 09/04/23 05:29 Labs: Abnormal Lab Results - Last 24 Hours (Table) 09/03/23 09/03/23 09/04/23 Range/Units 17:17 20:22 05:29 Carbon Dioxide 32.0 H (21.6-31.8) mmol/L Anion Gap 13.00 H (4.00-12.00) mmol/L BUN 87.1 H (9.0-27.0) mg/dL Creatinine 2.0 H (0.6-1.5) mg/dL Est GFR (CKD-EPI) 35 L (>=60) BUN/Creatinine Ratio 43.55 H (12.00-20.00) Ratio Glucose 132 H (70-110) mg/dL POC Glucose (mg/dL) 165 H 156 H (70-110) mg/dL Magnesium 2.5 H (1.5-2.4) mg/dL 09/04/23 09/04/23 Range/Units 07:03 12:00 Carbon Dioxide (21.6-31.8) mmol/L Anion Gap (4.00-12.00) mmol/L BUN (9.0-27.0) mg/dL Creatinine (0.6-1.5) mg/dL Est GFR (CKD-EPI) (>=60) BUN/Creatinine Ratio (12.00-20.00) Ratio Glucose (70-110) mg/dL POC Glucose (mg/dL) 152 H 152 H (70-110) mg/dL Magnesium (1.5-2.4) mg/dL Assessment and Plan Plan: Assessment: 1. Acute kidney injury secondary to ATN secondary to cardiorenal syndrome. Renal function stable. Creatinine stable at 2 today. Nonoliguric. No proteinuria on UA. No hydronephrosis noted on kidney ultrasound. 2. Chronic kidney disease stage III A with baseline creatinine 1-1.5. Suspect nephrosclerosis. 3. Acute on chronic diastolic CHF. 4. Volume overload. Improving with diuresis. 5. Acute hypoxic respiratory failure. 6. Hypokalemia from diuresis. Replaced. Improved. 7. Gram-positive bacteremia with lower extremity cellulitis on antibiotics. ID following. 8. Anemia of chronic kidney disease. On Aranesp. s/p IV iron. Plan: Maintain torsemide. Low-salt diet and 1500 mL fluid restriction. Will benefit from sglt2i once infection resolves.
[2023-09-04 14:12] VITALS: BP 121/61; PULSE 61; RESP 24; TEMP 97.7
--- NOTE | 2023-09-04 15:07 | P.PN ---
Subjective Progress Note Date: 09/04/23 Principal diagnosis: Bacteremia left leg wound and cellulitis Patient is a 73-year-old male with a past medical history significant for hypertension hyperlipidemia sleep apnea reflux and asthma presenting to the hospital for shortness of breath and hypoxemia requiring BiPAP patient did have blood culture drawn can be positive with gram-positive cocci and also noticed to have ulceration and erythema to the left lower extremity. On today's evaluation that is 09/04/2023, the patient remains to be afebrile, the patient is breathing on 4 L nasal cannula oxygen the patient is slightly more awake and today and asking for some water denies any worsening cough or chest pain no vomiting or diarrhea has been reported by the nursing staff Patient did have white count 8.4 as of yesterday, creatinine is 2.0, repeat blood culture negative Objective - Vital Signs Vital signs: Vital Signs Temp 98.0 F 09/04/23 07:06 Pulse 60 09/04/23 11:39 Resp 19 09/04/23 07:06 BP 149/61 09/04/23 07:06 Pulse Ox 98 09/04/23 07:06 FiO2 30 09/04/23 04:22 Intake & Output 09/03/23 09/04/23 09/04/23 18:59 06:59 18:59 Output Total 725 700 725 Balance -725 -700 -725 Output: Urine 725 700 725 Other: Voiding Method Indwelling Catheter Indwelling Catheter Indwelling Catheter # Bowel Movements 1 - Exam GENERAL DESCRIPTION: An elderly male lying in bed in no distress RESPIRATORY SYSTEM: Unlabored breathing , decreased breath sounds at bases HEART: S1 S2 regular rate and rhythm , ABDOMEN: Soft , no tenderness EXTREMITIES: Left leg is currently dressed no drainage on the dressing - Labs CBC & Chem 7: 09/03/23 05:30 09/04/23 05:29 Labs: Abnormal Lab Results - Last 24 Hours (Table) 09/03/23 09/03/23 09/04/23 Range/Units 17:17 20:22 05:29 Carbon Dioxide 32.0 H (21.6-31.8) mmol/L Anion Gap 13.00 H (4.00-12.00) mmol/L BUN 87.1 H (9.0-27.0) mg/dL Creatinine 2.0 H (0.6-1.5) mg/dL Est GFR (CKD-EPI) 35 L (>=60) BUN/Creatinine Ratio 43.55 H (12.00-20.00) Ratio Glucose 132 H (70-110) mg/dL POC Glucose (mg/dL) 165 H 156 H (70-110) mg/dL Magnesium 2.5 H (1.5-2.4) mg/dL 09/04/23 09/04/23 Range/Units 07:03 12:00 Carbon Dioxide (21.6-31.8) mmol/L Anion Gap (4.00-12.00) mmol/L BUN (9.0-27.0) mg/dL Creatinine (0.6-1.5) mg/dL Est GFR (CKD-EPI) (>=60) BUN/Creatinine Ratio (12.00-20.00) Ratio Glucose (70-110) mg/dL POC Glucose (mg/dL) 152 H 152 H (70-110) mg/dL Magnesium (1.5-2.4) mg/dL Assessment and Plan (1) Left leg cellulitis Current Visit: Yes Status: Acute Code(s): L03.116 - CELLULITIS OF LEFT LOWER LIMB SNOMED Code(s): 81573404286063776 (2) Bacteremia Current Visit: Yes Status: Acute Code(s): R78.81 - BACTEREMIA SNOMED Code(s): 4985388 (3) Chronic venous hypertension (idiopathic) with ulcer and inflammation of bilateral lower extremity Current Visit: Yes Status: Acute Code(s): I87.333 - CHRONIC VENOUS HTN W ULCER AND INFLAM OF BILATERAL LOW EXTRM SNOMED Code(s): 354257071961992 Plan: 1patient with gram-positive bacteremia in this patient has been the hospital for about 5 days with initial presentation with increasing shortness of breath and hypoxemia has been diagnosed with a CHF exacerbation with a question of possible skin contamination versus related to the left lower extremity cellulitis as the patient to have evidence of left lower extremity swelling redness some superficial ulceration likely from ruptured blister mild warmth and redness to touch. 2blood cultures has been repeated and so far negative 3local wound care to the left extremity with a dry Aquacel dressing and Toribio wrap change every 48 hours 4 patient remains to be afebrile and white count is normal, plan is to continue with daptomycin while inpatient, however plan to transition to oral doxycycline on discharge Dictation was produced using [employer] dictation software. please excuse any grammatical, word or spelling errors. Time with Patient: Less than 30
--- NOTE | 2023-09-04 16:48 | P.PN ---
Subjective Progress Note Date: 09/04/23 I am seeing this patient in new consultation today 09/01/2023 for acute hypoxemic and hypercapnic respiratory failure requiring BiPAP. Patient is a 73-year-old white male who is fairly debilitated, he has past medical history of asthma, obstructive sleep apnea with CPAP, chronic oxygen dependence, hyper lipidemia, hypertension, congestive heart failure, paroxysmal atrial fibrillation, and his remote ex-smoker over 30 years ago. Patient did have a recent hospitalization last month for diastolic congestive heart failure. Patient reportedly currently resides at a local [facility]. Patient was refusing to w ear his CPAP at night. When he awoke, he was found to be confused with a pulse oximeter reading in the 70s. He was transferred to [facility] by EMS back on August 23. Chest x-ray on arrival was consistent with pulmonary edema. Patient is receiving Lasix 60 mg twice a day. Urine output has been adequate. Echocardiogram this admission shows a preserved left ventricular ejection fraction of 50-55%. Exam was otherwise limited. Most recent CBC from yesterday shows a WBC count of 7.1, hemoglobin 8.2, hematocrit 25.9, and platelets 108,000. Most recent BMP from yesterday shows sodium 134, potassium 3.5, chloride 92, serum bicarbonate 35, UN 76, creatinine 1.74, glucose 98. Am monia level was elevated at 45, the patient's been started on lactulose. AST and ALP are not elevated. ALP 223. On arrival, the patient did have an isolated positive blood culture showing gram-positive cocci in clusters. Patient was initially started on vancomycin, but his renal function was poor, and he was switched to daptomycin. Repeat blood cultures have remained negative. Patient is currently sitting up in bed, on BiPAP with settings 12/5 and an FiO2 of 30%. He is achieving tidal volumes around 500 and respiratory rate is 25. He is still quite confused. Bilateral lower extremities are wrapped. Patient does have lower extremity wounds. He also has a urinary catheter, there was reportedly inserted for urinary retention. Urinalysis not concerning for UTI. Patient is afebrile. Hemodynamically stable at this time. On today's evaluation of 09/02/2023, the patient is doing well. The patient is despite the diuretics and the patient has been in a negative fluid balance of at least 4.3 L over the past 24 hours. The patient's blood work shows a BUN of 70 with a creatinine of 1.8 and sodium levels at 138. Noted the patient has chronic kidney disease. He is currently on DuoNeb updrafts, he is also on IV Solu-Medrol 40 mg every 8 hours and the patient is also on diuretics receiving Lasix 60 mg IV every 12 hours. The patient is also on oxygen at 4 L/m nasal cannula. On today's evaluation of 09/03/2023, the patient is on 3 L of oxygen by nasal cannula. Continues to diurese with Lasix and the patient has been switched to torsemide by nephrology. Fluid balance is -1.3 L for the past 24 hours. BUN is at 81 with a creatinine of 1.9 and sodium levels of 139, WBC was at 8.4 with a hemoglobin of 7.8. No chest pain. No altered mentation. The patient is currently on torsemide 40 mg by mouth daily. The patient remains on anticoagulations with around 20 to the 50 mg by mouth daily. Infectious diseases on the case and the patient is being treated for some left lower extremity. The patient has chronic venous stasis in bilateral lower extremity edema and the patient is currently on daptomycin. The patient gram-positive bacteremia, awaiting final cultures. Note that the repeat cultures are negative on 08/20/2023. Infectious diseases on the case. On today's evaluation of 09/04/2023, the the patient is being seen for a follow- up. The patient will specific complaints. The patient remains on 4 L of oxygen by nasal cannula. He remains in negative fluid balance. Oxygen requirements of essentially stable at 4 L/m nasal cannula with a pulse ox of 99%. No reported fever. The enzymes at 87 with a creatinine of 2.0 and sodium levels of 143 with a potassium level of 4.6. Continues to have lower extremity edema which is gradually improving. In terms of therapy, the patient remains on daptomycin regarding gram-positive cocci in his blood. The patient remains on Demadex 40 mg by mouth daily. Remains on bronchodilators. Remains on IV Solu-Medrol. Objective - Vital Signs Vital signs: Vital Signs Temp 97.7 F 09/04/23 13:52 Pulse 61 09/04/23 13:52 Resp 24 09/04/23 13:52 BP 121/61 09/04/23 13:52 Pulse Ox 95 09/04/23 13:52 FiO2 30 09/04/23 04:22 Intake & Output 09/03/23 09/04/23 09/04/23 18:59 06:59 18:59 Output Total 725 700 725 Balance -725 -700 -725 Output: Urine 725 700 725 Other: Voiding Method Indwelling Catheter Indwelling Catheter Indwelling Catheter # Bowel Movements 1 - Exam GENERAL EXAM: Alert but disoriented, 73-year-old morbidly obese male, comfortable in no apparent distress. HEAD: Normocephalic and atraumatic EYES: Normal reaction of pupils, equal size. NOSE: Clear with pink turbinates. THROAT: No erythema or exudates. NECK: No masses, no JVD. CHEST: No chest wall deformity. LUNGS: Equal air entry with bibasilar inspiratory crackles. Mild expiratory wheezes heard throughout. Currently on BiPAP. No conversational dyspnea or accessory muscle use.. CVS: S1 and S2 normal with no audible murmur, regular rhythm. No extra heart sounds ABDOMEN obese abdomen, no hepatosplenomegaly, active bowel sounds, no guarding or rigidity. SPINE: No scoliosis or deformity SKIN: right lower extremity partial thickness ulceration, legs are wrapped with Toribio bandages CENTRAL NERVOUS SYSTEM: No focal deficits, tone is normal in all 4 extremities. EXTREMITIES: There is bilateral lower extremity nonpitting edema. No clubbing, or cyanosis. Peripheral pulses are intact. - Labs CBC & Chem 7: 09/03/23 05:30 09/04/23 05:29 Labs: Abnormal Lab Results - Last 24 Hours (Table) 09/03/23 09/03/23 09/04/23 Range/Units 17:17 20:22 05:29 Carbon Dioxide 32.0 H (21.6-31.8) mmol/L Anion Gap 13.00 H (4.00-12.00) mmol/L BUN 87.1 H (9.0-27.0) mg/dL Creatinine 2.0 H (0.6-1.5) mg/dL Est GFR (CKD-EPI) 35 L (>=60) BUN/Creatinine Ratio 43.55 H (12.00-20.00) Ratio Glucose 132 H (70-110) mg/dL POC Glucose (mg/dL) 165 H 156 H (70-110) mg/dL Magnesium 2.5 H (1.5-2.4) mg/dL 09/04/23 09/04/23 Range/Units 07:03 12:00 Carbon Dioxide (21.6-31.8) mmol/L Anion Gap (4.00-12.00) mmol/L BUN (9.0-27.0) mg/dL Creatinine (0.6-1.5) mg/dL Est GFR (CKD-EPI) (>=60) BUN/Creatinine Ratio (12.00-20.00) Ratio Glucose (70-110) mg/dL POC Glucose (mg/dL) 152 H 152 H (70-110) mg/dL Magnesium (1.5-2.4) mg/dL Assessment and Plan Assessment: Acute exacerbation of diastolic CHF, with significant cardiomegaly, pulmonary vascular congestion, and small effusions. Echocardiogram from 08/25/23 showed ejection fraction of left ventricle in the order of 50-55%, and otherwise was a limited exam. Overall CHF condition is stable and the patient HASN'T been optimized with diuretics. Chest x-ray from 09/03/2023 showed hepatomegaly and some residual pulmonary vascular congestion and small pleural effusions. The patient is currently on Demadex. Blood pressure is stable. Acute exacerbation of chronic bronchial asthma/COPD, improving and the patient remains on bronchodilators and systemic steroids Acute on chronic hypoxemic and hypercapnic respiratory failure, currently off BiPAP and the patient is currently on 4 L of oxygen by nasal cannula Bacteremia, original blood cultures were positive with gram-positive cocci in clusters. Repeat cultures have been negative so far. Patient remains on daptomycin IV and recommendations Paroxysmal A. fib maintenance and he is admitted on anticoagulation with with Xarelto Acute on chronic kidney disease, patient has a history of chronic kidney disease stage III, creatinine is currently at 2.0 Acute metabolic encephalopathy, improved and the mental status is back to its baseline Anemia of chronic disease. Thrombocytopenia, improved Obstructive sleep apnea syndrome, maintained on CPAP. Chronic venous stasis and right lower extremity wounds Paroxysmal atrial fibrillation. Benign essential hypertension. History of hyperlipidemia. Morbid obesity, with a BMI of 45.7 kg/m Plan: Continue torsemide 40 mg by mouth daily Monitor renal function Gram-positive cocci in the bloodand the cultures on 08/23/2023. Subsequent blood cultures are negative and the patient is currently on daptomycin Patient is a negative fluid balance Patient has adequate urine output Repeat chest x-ray from 09/03/2023 showing hepatomegaly and pulmonary vascular congestion. Overall appearance is still similar. Monitor hemoglobin Continue BiPAP at bedtime Continue diuretics Continue bronchodilators, formoterol, budesonide Continue Solu-Medrol He has diastolic heart failure and fluid overload. Antibiotic management is per ID. We'll continue to follow.
--- NOTE | 2023-09-05 11:06 | P.PN ---
Subjective Progress Note Date: 09/04/23 Principal diagnosis: acute pulmonary edema At today's visit patient is resting comfortably in bed. He is reporting shortness of breath and cough. Counts stable. Patient afebrile. Continues on IV antibiotics. Objective - Vital Signs Vital signs: Vital Signs Temp 97.7 F 09/04/23 13:52 Pulse 61 09/04/23 13:52 Resp 24 09/04/23 13:52 BP 121/61 09/04/23 13:52 Pulse Ox 95 09/04/23 13:52 FiO2 30 09/04/23 04:22 Intake & Output 09/03/23 09/04/23 09/04/23 18:59 06:59 18:59 Output Total 725 700 725 Balance -725 -700 -725 Output: Urine 725 700 725 Other: Voiding Method Indwelling Catheter Indwelling Catheter Indwelling Catheter # Bowel Movements 1 - Constitutional General appearance: Present: obese - EENT Eyes: Present: anicteric sclerae, EOMI ENT: Present: hearing grossly normal - Respiratory Details: breathing labored - Cardiovascular Details: skin warm and dry - Peripheral edema leg Peripheral Edema Comment(s): bilateral lower extremity edema - Integumentary Integumentary: Absent: cyanotic - Musculoskeletal Musculoskeletal: Present: generalized weakness - Psychiatric Psychiatric: Present: A&O x's 3, appropriate affect, intact judgment & insight - Labs CBC & Chem 7: 09/03/23 05:30 09/04/23 05:29 Labs: Abnormal Lab Results - Last 24 Hours (Table) 09/03/23 09/04/23 09/04/23 Range/Units 20:22 05:29 07:03 Carbon Dioxide 32.0 H (21.6-31.8) mmol/L Anion Gap 13.00 H (4.00-12.00) mmol/L BUN 87.1 H (9.0-27.0) mg/dL Creatinine 2.0 H (0.6-1.5) mg/dL Est GFR (CKD-EPI) 35 L (>=60) BUN/Creatinine Ratio 43.55 H (12.00-20.00) Ratio Glucose 132 H (70-110) mg/dL POC Glucose (mg/dL) 156 H 152 H (70-110) mg/dL Magnesium 2.5 H (1.5-2.4) mg/dL 09/04/23 Range/Units 12:00 Carbon Dioxide (21.6-31.8) mmol/L Anion Gap (4.00-12.00) mmol/L BUN (9.0-27.0) mg/dL Creatinine (0.6-1.5) mg/dL Est GFR (CKD-EPI) (>=60) BUN/Creatinine Ratio (12.00-20.00) Ratio Glucose (70-110) mg/dL POC Glucose (mg/dL) 152 H (70-110) mg/dL Magnesium (1.5-2.4) mg/dL Assessment and Plan (1) Bicytopenia Status: Acute Code(s): D75.89 - OTHER SPECIFIED DISEASES OF BLOOD AND BLOOD- FORMING ORGANS SNOMED Code(s): 42352060 Plan: Bicytopenia: -Consult was placed for bicytopenia, with some worsening of counts from baseline noted during this admission. Concern is for a primary bone marrow disorder such as MDS - While an underlying marrow dysfunction cannot be ruled out at this time, the patient actually has has other, very reasonable etiologies, for his findings. He has CKD, as well as chronic ongoing inflammation related to his leg wounds, which can definitely cause anemia of this degree. In addition, in a patient with CKD and chronic inflammation, a ferritin in this range, with markedly low iron saturation could still be compatible with iron deficiency. The patient does have risk factors for blood loss, with ongoing anticoagulation, and a known history of H pylori and Kim's esophagus. -Spoke with ID regarding parenteral iron administration. Per ID, from infectious standpoint patient is okay to receive IV iron. Ferrlecit 3 doses ordered. In addition his B12 is borderline at 329. MMA elevated at 0.54. PO Vit B12 added - DALLIN added by nephrology - SPEP revealed no monoclonal paraprotein. K/L ratio normal, 1.41. If counts do not recover once he acutely recovers, further workup would be reasonable - Continue to monitor and transfuse to keep hemoglobin greater than 7 - Similarly the mild thrombocytopenia could be related to his hepatic steatosis and splenomegaly, with some transient worsening due to current inflammation/infection as well as CHF (which will increase hepatic and splenic congestion). Thrombocytopenia resolved, Platelets now normal at 185,000. Plan: Defer to the admitting service for management of his other medical problems
--- NOTE | 2023-09-05 14:32 | P.DS ---
Providers Date of admission: 08/23/23 13:43 Expected date of discharge: 09/04/23 Attending physician: Alison Leon Consults: 08/24/23 11:50 Consult Physician Routine Consulting Provider: Aamir Howard Consult Reason/Comments: Chest pain and heart failure Do you want consulting provider notified?: Yes 08/28/23 00:58 Consult Physician Routine Consulting Provider: Colleen Valle Consult Reason/Comments: Positive blood cultures Do you want consulting provider notified?: Yes, Notify in am 08/29/23 14:48 Consult Physician Routine Consulting Provider: Russ Centeno Consult Reason/Comments: mds Do you want consulting provider notified?: Yes 08/31/23 10:44 Consult Physician Urgent Consulting Provider: Kumar Buck Consult Reason/Comments: Respiratory failure Do you want consulting provider notified?: Yes 08/31/23 10:45 Consult Physician Routine Consulting Provider: Bianca Giordano Consult Reason/Comments: ELIA/CKD3a Do you want consulting provider notified?: Yes Primary care physician: Alison Leon Hospital Course: HISTORY OF PRESENT ILLNESS: This is a 73-year-old male with a previous medical history significant for hypertension and hypertensive cardiovascular disease, hyperlipidemia, obesity with obstructive sleep apnea and obesity hypoventilation syndrome, chronic diastolic heart failure, asthma, hypothyroidism, anxiety and depressive disorder, peripheral neuropathy, patient was recently discharged from [facility] after he was admitted to the hospital for acute diastolic heart failure and pulmonary edema, and he was discharged back to [facility] the [place], patient was doing fine and he was seen on Friday he was doing fine suddenly developed to have a significant weeping from both lower extremities despite taken spironolactone as well as Lasix and Farxiga, patient has been on oxygen at 4 L Cannula, patient weight has been increased, with increased weeping from both lower extremities, the nursing staff came to see the patient in the morning and he was unresponsive with oxygen saturation in the low 80s, 911 was called and the patient was. On the high flow oxygen he went up to 88%, patient was transported to the emergency department at [facility], had a chest x- ray that showed bulbar edema, he was placed on a BiPAP, with Lasix 40 mg IV push, he felt much better he is sitting down in bed, he continues to be somewhat short of breath, he continues to have significant swelling in both lower extremities with minimal denuded blister in the left lower extremity, he does appear to have a chronic stasis edema, patient appears to be more awake and alert at the time of evaluation in the ER. Patient will be admitted to the hospital for acute diastolic heart failure with The BiPAP, Would Be Started on Lasix 80 Mg IV Push Every 12 Hours. 08/24: Patient is feeling better today, he continues to be on 4 L nasal cannula, he denies any chest pain, isosorbide, uses the BiPAP on and off, he is diuresing with Lasix 80 mg IV push every 12 hours, he is continued for sick at 10 mg every day, spironolactone 25 mg once every day, monitor the patient input and output and daily weight, follow the patient very closely. Cardiology is to see the patient as he is complaining of chest pin suggestive of CAD 08/25: Patient continues to have slow improvement of his breathing status. Patient is on BiPAP during the night with pulse ox of 94%, currently on 4 L nasal cannula with pulse ox of 97%. Heart rate is mostly in the 50s and 60s, blood pressure 104/56. Repeat blood work reveals WBC 10.1, hemoglobin 8.4, platelet count 103. Sodium 138, potassium 3.9, BUN 49 creatinine 1.51. CO2 is 31. Limited echocardiogram reveals EF of 50-55%. Patient has a negative fluid balance. Weights do not appear to be accurate. Cardiology has decreased frequency of IV Lasix 80 mg 2 once daily and continued Zaroxolyn for today. 08/26: Patient has been seen by cardiology and IV Lasix has been transitioned to oral at 80 mg daily and continued on Zaroxolyn 5 mg daily. He has had increase in his BUN to 54 and creatinine 1.7. His breathing status seems to be stable. He is using BiPAP when sleeping at nighttime and on nasal cannula during the day at 4 L. His heart rate is running in the 70s, blood pressure 121/72. Other blood work reveals hemoglobin is stable at 8.7, WBC 16.4 platelet count 86. 08/27: Patient has been seen by cardiology today with recommendations to continue oral Lasix at 80 mg daily and metolazone 5 mg daily. Blood pressures been on the soft side 94/52, heart rate in the 60s and 70s. He has been afebrile, pulse ox 90% on 4 L nasal cannula. Repeat blood work reveals WBC 13.3, hemoglobin 8.4, platelet count 87. Sodium 134, BUN 61 creatinine 1.89. Patient states that in general he does not feel well. Anemia workup added. 08/28: Consults were added yesterday afternoon for [facility]ound Center and infectious disease. Patient has been started on IV vancomycin. He has had a slight bump in his renal function with BUN 63 creatinine 1.91. Cardiology has discontinued Zaroxolyn. Hemoglobin is 8.1 and anemia workup was ordered yesterday. Patient's blood pressures been 97/50 heart rate in the 70s and 80s. Patient is utilizing BiPAP when sleeping or at nighttime. During the day he is on 4 L nasal cannula with pulse ox 97%. Patient continues to complain of generalized fatigue and weakness and not feeling well in general. Cough is improved. 08/29: First blood culture Gram stain was positive for gram-positive cocci in clusters. Culture is showing no growth after 72 hours. He had a second blood culture obtained which was finalized with no growth at 5 days. A repeat blood culture was obtained yesterday and is status received. Bacteremia is possible contamination but patient is currently on vancomycin as advised by Dr. Valle. He has been seen by Wound Center with recommendations for left lower extremity: Honey gel, border foam wrap with Toribio wrap to control swelling. Right lower extremity apply triad and rolled gauze and wrap with Toribio wrap. Legs are to be elevated for 30 minutes at least 3 times a day. Patient is seen today in recliner with his legs elevated. He is off the BiPAP for now. He is utilizing BiPAP for nighttime and when sleeping. He has been afebrile, heart rate in the 70s, blood pressure 96/50. Repeat blood work reveals WBC 9.2, hemoglobin 8.1, platelet count 91. Sodium 133, potassium 3.3, chloride 90, CO2 34, BUN 67 creatinine 2.05.cardiology has discontinued Zaroxolyn and continue patient on Lasix 80 mg oral daily as well as spironolactone 12.5 mg daily. Patient to be transferred to [facility] with telemetry. 08/30: Patient was seen in consultation by hematology oncology due to concern of anemia with iron deficiency and possible myelodysplasia, this is likely related to any iron deficiency anemia due to chronic kidney disease, he may need to have some workup as an outpatient when the anemia is better, but at this point in time we'll continue treat his infection, continue to treat the patient supportive patient very closely, he may need to go back on iron infusion when the patient the infection is better, and he may need to go on erythropoietin according to hematology oncology down the line to treat both the anemia of chronic kidney disease and possible underlying MDS, to have some issues generalized weakness, patient not able template very well, he continues to be on IV diuretics, we will repeat his labs, patient will likely be transferred back to [facility] [place] the [place] in the next 1 or 2 days. 08/31: Patient is laying down in bed he appears to be in moderate respiratory distress since we cut down on his Lasix to 40 mg once every day, he did diurese about 300 mL in the back today after the oral Lasix, I will put the patient back on his BiPAP, we will switch the patient to Lasix 60 mg IV push every 12 hours, we'll consult pulmonary medicine, continue to monitor the patient input and output and daily weight, we will do a stat chest x-ray, nephrology consultation for acute on chronic kidney disease as well overall prognosis continue to be guarded patient is no code at this point in time we will continue the aggressive treatment. 09/01: Patient continues on IV Lasix 60 mg every 12 hours. This morning his had a negative output [id number]. Daily weights are not accurate. Blood pressure 111/60, heart rate in the 60s to 80s, pulse ox 95% on 4 L nasal cannula. Patient is seen by pulmonary medicine and patient has been started on IV Solu-Medrol. We will add in NovoLog scale. Patient is also followed by nephrology with recommendations to maintain IV Lasix, low salt diet and 1500 mL fluid restriction. Low potassium is been replaced. Aranesp added and recommended SGLT2. He is on Farxiga that has been on hold. Patient has been seen by oncology, MM a is pending. Recommendations for supplementation. Antibiotics over the weekend were transitioned from vancomycin to daptomycin.. 09/02: Oncology has ordered Ferrlecit 3 doses. Patient remains afebrile, heart rate in the 70s and 80s, blood pressure 120/72, pulse ox 94% on 4 L nasal cannula. Patient continues to have lower extremity edema and some shortness of breath but all symptoms be very slowly improving. He is on IV Solu-Medrol 60 mg every 6 hours which will be decreased to 40 mg every 8 hours. He is followed closely by pulmonary medicine. Repeat blood work reveals sodium 137, potassium 3.9, chloride 91, CO2 33, creatinine 1.8. Blood glucose running between 149 and 188. A1c is 5.4. 09/03: Patient found sleeping in bed. He awakens easily to verbal stimuli. Dr. Valle has recommended to continue Daptomycin ad transition to oral doxy at the time of discharge. Patient remains afebrile, heart rate in the 60s, blood pressure 120/59 and pulse ox 94% on 3 L nasal cannula. Patient states that he has been fatigued all day. He is utilizing BiPAP at bedtime. We'll plan to decrease Solu-Medrol to 40 mg every 12 hours. Noted that PT and OT is not following the patient will ask for them to see him prior to discharge. Patient ate a few bites for breakfast and a better for lunch today. Anticipate discharge in the next 24-48 hours. Discharge plan is to return to [facility] to complete his subacute rehab. 09/04: Blood pressure 149/61, heart rate in the 60s, pulse ox 98% on BiPAP. Patient now on 4 L nasal cannula. Repeat blood work reveals sodium 143, potassium 4.6, BUN is 87 creatinine 2.0. Patient is status post 3 doses of Ferrlecit. Nephrology has cleared the patient for discharge with plan for follow-up in 1 week and lab work in 2-3 days. Pulmonary medicine is also following patient and cleared for discharge. The patient feels that his breathing status is back to his baseline. He is on IV Solu-Medrol which will be transitioned to oral prednisone. He is also on IV daptomycin which will be transitioned to oral Ceftin. Patient will be discharged today once all arrangements are completed. DISCHARGE DIAGNOSES: 1. Acute hypoxemic respiratory failure due to acute on chronic diastolic heart failure and COPD wit RAMYA and OHS. 2. COPD/moderate persistent asthma and not in exacerbation with chronic hypoxemic respiratory failure. 3. Paroxysmal atrial fibrillation/ Flutter. 4. Hypertension and hypertensive cardiovascular disease. 5. Hyperlipidemia. 6. Enlarged prostate. 7. Anxiety disorder. 8. Neuropathy. 9. Thrombocytopenia. Likely related to alcoholic fatty liver disease cannot entirely rule out myelodysplasia. 10. Acute kidney injury on chronic kidney disease stage III a. 11. Depression. 12. Wounds to the bilateral lower extremities/cellulitis: Nonhealing ulcer left calf, right lower extremity, chronic venous insufficiency. 13. Gram-positive bacteremia possible contamination versus related to cellulitis of the lower extremities. 14. Anemia and thrombocytopenia. 15. Obesity with obstructive sleep apnea and obesity hypoventilation syndrome. Continue patient on BiPAP. Greater than 35 minutes was utilized and coordinating patient's discharge. Impression and plan of care have been directed as dictated by the signing physician. Concepción Perkins nurse practitioner acting as scribe for signing physician. Patient Condition at Discharge: Stable Patient Condition at Discharge: Stable Plan - Discharge Summary Discharge Rx Participant: Yes New Discharge Prescriptions: New Cefuroxime [Ceftin] 250 mg PO BID 7 Days #14 tab Nystatin 100,000 Unit/ml Susp [Mycostatin Oral Susp] 500,000 unit PO TID 3 Days ml predniSONE 0 mg PO DIRECTED #30 tab Cyanocobalamin [Vitamin B-12] 1,000 mcg PO DAILY tab Artificial Tears-Hypromellose [Artificial Tear Drops] 1 drops BOTH EYES TID PRN ml PRN Reason: Dry Eye(S) Torsemide [Demadex] 40 mg PO DAILY tab Nystatin 100,000 Unit/gm Powd [Mycostatin Powder] 1 applic TOPICAL BID #0 each INSULIN ASPART (NovoLOG) [NovoLOG (formulary)] 0 unit SQ AC-TID each Continue Sertraline [Zoloft] 100 mg PO HS Atorvastatin [Lipitor] 20 mg PO HS Tamsulosin [Flomax] 0.4 mg PO DAILY Ipratropium-Albuterol Nebulize [Duoneb 0.5 mg-3 mg/3 ml Soln] 3 ml INHALATION RT-Q6H Rivaroxaban [Xarelto] 15 mg PO W/SUPPER #30 tab Omeprazole [PriLOSEC] 20 mg PO DAILY Montelukast [Singulair] 10 mg PO HS Spironolactone [Aldactone] 12.5 mg PO DAILY tab Budesonide [Pulmicort] 1 mg INHALATION RT-BID ml Metoprolol Tartrate [Lopressor] 37.5 mg PO BID allopurinoL 200 mg PO DAILY Ammonium Lactate Lotion [Lac-Hydrin 12% Lotion] 1 applic TOPICAL DAILY Gabapentin [Neurontin] 300 mg PO HS #3 cap Acetaminophen Tab [Tylenol] 500 mg PO Q6H PRN PRN Reason: Pain Cholecalciferol [Vitamin D3 (25 Mcg = 1000 Iu)] 50 mcg PO DAILY Benzonatate [Tessalon Perles] 200 mg PO TID PRN cap PRN Reason: Cough Melatonin 10 mg PO HS PRN tab PRN Reason: Insomnia Discontinued Baclofen [Lioresal] 10 mg PO BID PRN tab PRN Reason: Muscle Spasm Magnesium Oxide [Mag-Ox] 400 mg PO DAILY Furosemide [Lasix] 60 mg PO DAILY tab Tirzepatide [Mounjaro] 2.5 mg SQ MO Dapagliflozin Propanediol [Farxiga] 5 mg PO DAILY predniSONE [Deltasone] See Taper PO DAILY Discharge Medication List Sertraline [Zoloft] 100 mg PO HS 04/04/17 [History] Atorvastatin [Lipitor] 20 mg PO HS 07/14/19 [History] Tamsulosin [Flomax] 0.4 mg PO DAILY 07/14/19 [History] Ipratropium-Albuterol Nebulize [Duoneb 0.5 mg-3 mg/3 ml Soln] 3 ml INHALATION RT-Q6H 08/19/19 [History] Acetaminophen Tab [Tylenol] 500 mg PO Q6H PRN 03/26/23 [History] Cholecalciferol [Vitamin D3 (25 Mcg = 1000 Iu)] 50 mcg PO DAILY 03/26/23 [History] Rivaroxaban [Xarelto] 15 mg PO W/SUPPER #30 tab 06/25/23 [Rx] Benzonatate [Tessalon Perles] 200 mg PO TID PRN cap 07/17/23 [Rx] Montelukast [Singulair] 10 mg PO HS 08/07/23 [History] Omeprazole [PriLOSEC] 20 mg PO DAILY 08/07/23 [History] Budesonide [Pulmicort] 1 mg INHALATION RT-BID ml 08/11/23 [Rx] Melatonin 10 mg PO HS PRN tab 08/11/23 [Rx] Spironolactone [Aldactone] 12.5 mg PO DAILY tab 08/11/23 [Rx] Ammonium Lactate Lotion [Lac-Hydrin 12% Lotion] 1 applic TOPICAL DAILY 08/23/23 [History] Metoprolol Tartrate [Lopressor] 37.5 mg PO BID 08/23/23 [History] allopurinoL 200 mg PO DAILY 08/23/23 [History] Artificial Tears-Hypromellose [Artificial Tear Drops] 1 drops BOTH EYES TID PRN ml 09/04/23 [Rx] Cefuroxime [Ceftin] 250 mg PO BID 7 Days #14 tab 09/04/23 [Rx] Cyanocobalamin [Vitamin B-12] 1,000 mcg PO DAILY tab 09/04/23 [Rx] Gabapentin [Neurontin] 300 mg PO HS #3 cap 09/04/23 [Rx] INSULIN ASPART (NovoLOG) [NovoLOG (formulary)] 0 unit SQ AC-TID each 09/04/23 [Rx] Nystatin 100,000 Unit/gm Powd [Mycostatin Powder] 1 applic TOPICAL BID #0 each 09/04/23 [Rx] Nystatin 100,000 Unit/ml Susp [Mycostatin Oral Susp] 500,000 unit PO TID 3 Days ml 09/04/23 [Rx] Torsemide [Demadex] 40 mg PO DAILY tab 09/04/23 [Rx] predniSONE 0 mg PO DIRECTED #30 tab 09/04/23 [Rx] Follow up Appointment(s)/Referral(s): Moncho Lamb MD [STAFF PHYSICIAN] - 2 Weeks Alison Leon MD [Primary Care Provider] - 1 Week (AT [facility]) Bright Grider DO [STAFF PHYSICIAN] - 1 Week Andrez Boone MD [STAFF PHYSICIAN] - 2 Weeks Ambulatory/Diagnostic Orders: Complete Blood Count w/diff [LAB.AMB] Location: None Selected Comprehensive Metabolic Panel [LAB.AMB] Location: None Selected Magnesium [LAB.AMB] Location: None Selected Activity/Diet/Wound Care/Special Instructions: 1500 mL fluid restriction Discontinue Lynn catheter at [facility], perform voiding trial. Discharge Disposition: TRANSFER TO SNF/ECF
== END 2023-09-04 18:07 | DRG 291 ==
LOC: EC 08:17 → 3SCARD 13:43 → 5NMEDONC 08-29 18:18
PROVIDERS: ADMIT Internal Medicine; ATTEND Internal Medicine
PROC: 5A09357 Assistance with Respiratory Ventilation, Less than 24 Consecutive Hours, Continuous Positive Airway Pressure (ICD-10-PCS; principal; 2023-08-23)
DX: I13.0 Hypertensive heart and chronic kidney disease with heart failure and stage 1 through stage 4 chronic kidney disease, or unspecified chronic kidney disease (principal); G93.41 Metabolic encephalopathy; I50.33 Acute on chronic diastolic (congestive) heart failure; J96.21 Acute and chronic respiratory failure with hypoxia; J96.22 Acute and chronic respiratory failure with hypercapnia; N17.0 Acute kidney failure with tubular necrosis; E66.2 Morbid (severe) obesity with alveolar hypoventilation; Z68.42 Body mass index [BMI] 45.0-49.9, adult; I87.333 Chronic venous hypertension (idiopathic) with ulcer and inflammation of bilateral lower extremity; J44.1 Chronic obstructive pulmonary disease with (acute) exacerbation; J45.41 Moderate persistent asthma with (acute) exacerbation; L03.116 Cellulitis of left lower limb; L97.222 Non-pressure chronic ulcer of left calf with fat layer exposed; L97.811 Non-pressure chronic ulcer of other part of right lower leg limited to breakdown of skin; R78.81 Bacteremia; K70.30 Alcoholic cirrhosis of liver without ascites; D69.6 Thrombocytopenia, unspecified; D63.1 Anemia in chronic kidney disease; Z99.81 Dependence on supplemental oxygen; N18.31 Chronic kidney disease, stage 3a; E03.9 Hypothyroidism, unspecified; Z79.01 Long term (current) use of anticoagulants; F32.A Depression, unspecified; Z66 Do not resuscitate; K70.0 Alcoholic fatty liver; I87.2 Venous insufficiency (chronic) (peripheral); I48.0 Paroxysmal atrial fibrillation; G62.9 Polyneuropathy, unspecified; E87.6 Hypokalemia; T50.2X5A Adverse effect of carbonic-anhydrase inhibitors, benzothiadiazides and other diuretics, initial encounter; Z71.3 Dietary counseling and surveillance; F41.9 Anxiety disorder, unspecified; Z20.822 Contact with and (suspected) exposure to COVID-19; E78.5 Hyperlipidemia, unspecified; I25.10 Atherosclerotic heart disease of native coronary artery without angina pectoris; I87.8 Other specified disorders of veins; Z87.01 Personal history of pneumonia (recurrent); K22.70 Barrett's esophagus without dysplasia; R16.1 Splenomegaly, not elsewhere classified; N40.1 Benign prostatic hyperplasia with lower urinary tract symptoms; R33.8 Other retention of urine; Z79.84 Long term (current) use of oral hypoglycemic drugs; Z79.899 Other long term (current) drug therapy; Z82.49 Family history of ischemic heart disease and other diseases of the circulatory system; Z86.19 Personal history of other infectious and parasitic diseases; Z91.199 Patient's noncompliance with other medical treatment and regimen due to unspecified reason; Z96.653 Presence of artificial knee joint, bilateral; Z28.311 Partially vaccinated for COVID-19
CPT/HCPCS: 36415; 36600; 71045; 76705; 76770; 80048; 80053; 80202; 81001; 82043; 82140; 82565; 82570; 82607; 82668; 82728; 82747; 82805; 83010; 83036; 83540; 83550; 83605; 83615; 83655; 83735; 83880; 83883; 83921; 84145; 84165; 84300; 84484; 84540; 85025; 85027; 85045; 85610; 85730; 86140; 87040; 87636; 93005; 93308; 94640; 94660; 94760; 96374; 99291

== ENCOUNTER 2023-09-07 16:20 | Inpatient (IN) | payer MEDICARE, BC ==
[2023-09-07 17:07] LABS: Anisocytosis Slight; Basophils % (A) 0 %; Eosinophils # (A) 0.2 k/uL (0-0.7); Eosinophils % (A) 2 %; HCT 30.5 % (39.0-53.0); Hypochromasia Marked; Lymphocytes # (A) 0.7 k/uL (1.0-4.8); Lymphocytes % (A) 7 %; MCH 27.6 pg (25.0-35.0); MCHC 30.4 g/dL (31.0-37.0); MCV 90.8 fL (80.0-100.0); Mean Platelet Volume 8.6; Monocytes # (A) 0.7 k/uL (0-1.0); Monocytes % (A) 8 %; Neutrophils # (A) 7.1 k/uL (1.3-7.7); Neutrophils % (A) 81 %; Platelet Count 297 k/uL (150-450); RBC 3.36 m/uL (4.30-5.90); RDW 18.5 % (11.5-15.5); WBC 8.7 k/uL (3.8-10.6)
[2023-09-07 17:14] LABS: HGB 9.3 gm/dL (13.0-17.5)
--- NOTE | 2023-09-07 17:37 | XR ---
EXAMINATION TYPE: XR chest 2V DATE OF EXAM: 09/07/2023 COMPARISON: 07/15/2023 HISTORY: Difficulty breathing TECHNIQUE: Frontal and lateral views of the chest are obtained. FINDINGS: There is marked cardiomegaly, pulmonary vascular congestion and interstitial and airspace edema. The findings are most consistent with CHF. There is no pneumothorax. Grossly the osseous structures are intact IMPRESSION: Marked acute cardiopulmonary disease most consistent with marked CHF.
--- NOTE | 2023-09-07 17:57 | ED ---
General Adult HPI - General Chief complaint: Shortness of Breath Stated complaint: EDIE Time Seen by Provider: 09/07/23 16:32 Source: patient, EMS, RN notes reviewed, old records reviewed Mode of arrival: EMS Limitations: no limitations - History of Present Illness Initial comments: 73-year-old male presents for evaluation of dyspnea and hypoxia. Patient was recently discharged from the hospital and was discharged to the snf. Apparently the patient had complained of dyspnea and was found to be hypoxic in the mid 80s. He is on supplemental oxygen, states that he wears typically 4 L. He denies chest pain. Denies fever. Denies significant cough. - Related Data Home Medications Medication Instructions Recorded Confirmed Sertraline [Zoloft] 100 mg PO HS 04/04/17 09/07/23 Atorvastatin [Lipitor] 20 mg PO HS 07/14/19 09/07/23 Tamsulosin [Flomax] 0.4 mg PO DAILY 07/14/19 09/07/23 Ipratropium-Albuterol Nebulize 3 ml INHALATION RT-Q6H 08/19/19 09/07/23 [Duoneb 0.5 mg-3 mg/3 ml Soln] Acetaminophen Tab [Tylenol] 500 mg PO Q6H PRN 03/26/23 09/07/23 Cholecalciferol [Vitamin D3 (25 50 mcg PO DAILY 03/26/23 09/07/23 Mcg = 1000 Iu)] Montelukast [Singulair] 10 mg PO HS 08/07/23 09/07/23 Omeprazole [PriLOSEC] 20 mg PO DAILY 08/07/23 09/07/23 Ammonium Lactate Lotion 1 applic TOPICAL BID 08/23/23 09/07/23 [Lac-Hydrin 12% Lotion] Metoprolol Tartrate [Lopressor] 37.5 mg PO BID 08/23/23 09/07/23 allopurinoL 200 mg PO DAILY 08/23/23 09/07/23 INSULIN ASPART (NovoLOG) [NovoLOG See Protocol SQ AC-TID 09/07/23 09/07/23 (formulary)] predniSONE See Taper PO DIRECTED 09/07/23 09/07/23 Previous Rx's Medication Instructions Recorded Rivaroxaban [Xarelto] 15 mg PO W/SUPPER #30 tab 06/25/23 Benzonatate [Tessalon Perles] 200 mg PO TID PRN cap 07/17/23 Budesonide [Pulmicort] 1 mg INHALATION RT-BID ml 08/11/23 Melatonin 10 mg PO HS PRN tab 08/11/23 Spironolactone [Aldactone] 12.5 mg PO DAILY tab 08/11/23 Artificial Tears-Hypromellose 1 drops BOTH EYES TID PRN ml 09/04/23 [Artificial Tear Drops] Cefuroxime [Ceftin] 250 mg PO BID 7 Days #14 tab 09/04/23 Cyanocobalamin [Vitamin B-12] 1,000 mcg PO DAILY tab 09/04/23 Gabapentin [Neurontin] 300 mg PO HS #3 cap 09/04/23 Nystatin 100,000 Unit/gm Powd 1 applic TOPICAL BID #0 each 09/04/23 [Mycostatin Powder] Torsemide [Demadex] 40 mg PO DAILY tab 09/04/23 Allergies Allergy/AdvReac Type Severity Reaction Status Date / Time No Known Allergies Allergy Verified 09/07/23 17:59 Review of Systems ROS Statement: Those systems with pertinent positive or pertinent negative responses have been documented in the HPI. ROS Other: All systems not noted in ROS Statement are negative. Past Medical History Past Medical History: Asthma, Chest Pain / Angina, GERD/Reflux, Hyperlipidemia, Hypertension, Osteoarthritis (OA), Pneumonia, Sleep Apnea/CPAP/BIPAP Additional Past Medical History / Comment(s): uses oxygen at night 2L, gout, in wheelchair or walker due to pain in left leg, poor circulation in legs History of Any Multi-Drug Resistant Organisms: None Reported Past Surgical History: Orthopedic Surgery, Tonsillectomy Additional Past Surgical History / Comment(s): LEFT WRIST ORIF, LEFT KNEE REPLACEMENT, bilateral cataract surgery Past Anesthesia/Blood Transfusion Reactions: No Reported Reaction Additional Past Anesthesia/Blood Transfusion Reaction / Comment(s): . Past Psychological History: Depression Smoking Status: Former smoker Past Alcohol Use History: None Reported Past Drug Use History: None Reported - Past Family History Mother Family Medical History: Congestive Heart Failure (CHF), Osteoarthritis (OA) Father Additional Family Medical History / Comment(s): FROM [place] Brother(s) Family Medical History: Cancer Additional Family Medical History / Comment(s): . Sister(s) Family Medical History: Deep Vein Thrombosis (DVT) General Exam Limitations: no limitations General appearance: alert, in no apparent distress Head exam: Present: atraumatic, normocephalic Eye exam: Present: normal appearance, PERRL ENT exam: Present: normal exam Neck exam: Present: normal inspection. Absent: tenderness, meningismus Respiratory exam: Present: wheezes, decreased breath sounds. Absent: respiratory distress Cardiovascular Exam: Present: regular rate, normal rhythm GI/Abdominal exam: Present: soft. Absent: distended, tenderness, guarding Extremities exam: Present: other (Bilateral lower boot) Neurological exam: Present: alert. Absent: motor sensory deficit Skin exam: Present: warm, dry Course Vital Signs 09/07/23 09/07/23 09/07/23 16:22 16:29 16:30 Temperature 97.9 F Pulse Rate 61 Respiratory 18 Rate Blood Pressure 131/92 126/88 O2 Sat by Pulse 96 95 95 Oximetry 09/07/23 09/07/23 09/07/23 16:38 16:49 17:00 Temperature Pulse Rate 59 L Respiratory 24 18 Rate Blood Pressure 106/59 O2 Sat by Pulse 95 96 Oximetry 09/07/23 09/07/23 17:30 18:22 Temperature Pulse Rate 59 L 61 Respiratory 19 22 Rate Blood Pressure 98/52 O2 Sat by Pulse 94 L 94 L Oximetry Medical Decision Making - Medical Decision Making Was pt. sent in by a medical professional or institution (MARIE Recio, FUEL CELL REPAIRER, urgent care, hospital, or snf...) When possible be specific @ -[Sent from snf Did you speak to anyone other than the patient for history (EMS, parent, family, police, friend...)? What history was obtained from this source @ -No Did you review nursing and triage notes (agree or disagree)? Why? @ -I reviewed and agree with nursing and triage notes Were old charts reviewed (outside hosp., previous admission, EMS record, old EKG, old radiological studies, urgent care reports/EKG's, snf records)? Report findings @ -No old charts were reviewed Differential Diagnosis (chest pain, altered mental status, abdominal pain women, abdominal pain men, vaginal bleeding, weakness, fever, dyspnea, syncope, headache, dizziness, GI bleed, back pain, seizure, CVA, palpatations, mental he alth, musculoskeletal)? @ Differential Dyspnea: Coronary syndrome, arrhythmia, tamponade, asthma, COPD, pulmonary embolism, pneumonia, pneumothorax, pulmonary effusion, anaphylaxis, diabetic ketoacidosis, flailed chest, pulmonary contusion, diaphragmatic rupture, anemia, neuromu scular, this is not meant to be an all-inclusive list. EKG interpreted by me (3pts min.). @Sinus rhythm rate of 60, FL interval 118, QRS duration 110, QTC 269, artifact in V1, V2 V3 limiting assessment. X-rays interpreted by me (1pt min.). @ -Bilateral pulmonary edema, cardiomegaly, chest x-ray consistent with CHF CT interpreted by me (1pt min.). @ -None done U/S interpreted by me (1pt. min.). @ -None done What testing was considered but not performed or refused? (CT, X-rays, U/S, labs)? Why? @ -None What meds were considered but not given or refused? Why? @ -None Did you discuss the management of the patient with other professionals (professionals i.e. , PA, FUEL CELL REPAIRER, lab, RT, psych nurse, social services counselor, poultry farm laborer, teacher, fare enforcement officer, case packer and sealer)? Give summary @ -Dr. Leon Was smoking cessation discussed for >3mins.? @ -No Was critical care preformed (if so, how long)? @ -No Were there social determinants of health that impacted care today? How? (Homelessness, low income, unemployed, alcoholism, drug addiction, transportat ion, low edu. Level, literacy, decrease access to med. care, retirement, rehab)? @ -No Was there de-escalation of care discussed even if they declined (Discuss DNR or withdrawal of care, Hospice)? DNR status @ -No What co-morbidities impacted this encounter? (DM, HTN, Smoking, COPD, CAD, Cancer, CVA, ARF, Chemo, Hep., AIDS, mental health diagnosis, sleep apnea, morbid obesity)? @ -[Asthma, CHF Was patient admitted / discharged? Hospital course, mention meds given and route, prescriptions, significant lab abnormalities, going to OR and other pertinent info. @ 73-year-old male with dyspnea, hypoxia. Chest x-ray is consistent with CHF. Patient also has history of asthma and has some wheezing bilaterally. Additionally be treated for reactive airway asthma exacerbation as well as CHF exacerbation. His BNP is doubled from recent testing. His troponin is negative . He has chronic anemia which is stable. Chronic kidney disease which is also stable. Patient will be admitted to internal medicine with both cardiology and pulmonology on consult. Undiagnosed new problem with uncertain prognosis? @ -No Drug Therapy requiring intensive monitoring for toxicity (Heparin, Nitro, Insulin, Cardizem)? @ -No Were any procedures done? @ -No Diagnosis/symptom? @ Acute CHF with hypoxia Acute, or Chronic, or Acute on Chronic? @ -[Acute on chronic Uncomplicated (without systemic symptoms) or Complicated (systemic symptoms)? @ -default Side effects of treatment? @ -No Exacerbation, Progression, or Severe Exacerbation? @ -No Poses a threat to life or bodily function? How? (Chest pain, [place], [place], pneumonia, PE, COPD, DKA, ARF, appy, cholecystitis, CVA, Diverticulitis, Homicidal, Suicidal, threat to staff... and all critical care pts) @ -[Yes, hypoxia, respiratory failure - Lab Data Result diagrams: 09/07/23 16:40 09/07/23 18:46 Lab Results 09/07/23 09/07/23 09/07/23 Range/Units 16:40 16:40 18:46 WBC 8.7 (3.8-10.6) k/uL RBC 3.36 L (4.30-5.90) m/uL Hgb 9.3 L D (13.0-17.5) gm/dL Hct 30.5 L (39.0-53.0) % MCV 90.8 (80.0-100.0) fL MCH 27.6 (25.0-35.0) pg MCHC 30.4 L (31.0-37.0) g/dL RDW 18.5 H (11.5-15.5) % Plt Count 297 (150-450) k/uL MPV 8.6 Neutrophils % 81 % Lymphocytes % 7 % Monocytes % 8 % Eosinophils % 2 % Basophils % 0 % Neutrophils # 7.1 (1.3-7.7) k/uL Lymphocytes # 0.7 L (1.0-4.8) k/uL Monocytes # 0.7 (0-1.0) k/uL Eosinophils # 0.2 (0-0.7) k/uL Basophils # 0.0 (0-0.2) k/uL Hypochromasia Marked Anisocytosis Slight PT 14.6 H (9.0-12.0) sec INR 1.5 H (<1.2) APTT 34.7 H (22.0-30.0) sec Sodium (137-145) mmol/L Potassium (3.5-5.1) mmol/L Chloride (98-107) mmol/L Carbon Dioxide (22-30) mmol/L Anion Gap mmol/L BUN (9-20) mg/dL Creatinine (0.66-1.25) mg/dL Est GFR (CKD-EPI)AfAm (>60 ml/min/1.73 sqM) Est GFR (CKD-EPI)NonAf (>60 ml/min/1.73 sqM) Glucose (74-99) mg/dL Plasma Lactic Acid Shankar (0.7-2.0) mmol/L Calcium (8.4-10.2) mg/dL Magnesium (1.6-2.3) mg/dL Total Bilirubin (0.2-1.3) mg/dL AST (17-59) U/L ALT (4-49) U/L Alkaline Phosphatase (38-126) U/L Troponin I <0.012 (0.000-0.034) ng/mL NT-Pro-B Natriuret Pep pg/mL Total Protein (6.3-8.2) g/dL Albumin (3.5-5.0) g/dL 09/07/23 09/07/23 Range/Units 18:46 18:46 WBC (3.8-10.6) k/uL RBC (4.30-5.90) m/uL Hgb (13.0-17.5) gm/dL Hct (39.0-53.0) % MCV (80.0-100.0) fL MCH (25.0-35.0) pg MCHC (31.0-37.0) g/dL RDW (11.5-15.5) % Plt Count (150-450) k/uL MPV Neutrophils % % Lymphocytes % % Monocytes % % Eosinophils % % Basophils % % Neutrophils # (1.3-7.7) k/uL Lymphocytes # (1.0-4.8) k/uL Monocytes # (0-1.0) k/uL Eosinophils # (0-0.7) k/uL Basophils # (0-0.2) k/uL Hypochromasia Anisocytosis PT (9.0-12.0) sec INR (<1.2) APTT (22.0-30.0) sec Sodium 141 (137-145) mmol/L Potassium 4.2 (3.5-5.1) mmol/L Chloride 96 L (98-107) mmol/L Carbon Dioxide 40 H (22-30) mmol/L Anion Gap 5 mmol/L BUN 89 H (9-20) mg/dL Creatinine 1.44 H (0.66-1.25) mg/dL Est GFR (CKD-EPI)AfAm 55 (>60 ml/min/1.73 sqM) Est GFR (CKD-EPI)NonAf 48 (>60 ml/min/1.73 sqM) Glucose 125 H (74-99) mg/dL Plasma Lactic Acid Shankar 1.1 (0.7-2.0) mmol/L Calcium 8.8 (8.4-10.2) mg/dL Magnesium 1.9 (1.6-2.3) mg/dL Total Bilirubin 0.8 (0.2-1.3) mg/dL AST 36 (17-59) U/L ALT 37 (4-49) U/L Alkaline Phosphatase 195 H (38-126) U/L Troponin I (0.000-0.034) ng/mL NT-Pro-B Natriuret Pep 4260 pg/mL Total Protein 6.3 (6.3-8.2) g/dL Albumin 3.2 L (3.5-5.0) g/dL Disposition Clinical Impression: CHF (congestive heart failure) Disposition: ADMITTED IP TO THIS HOSP Condition: Stable Is patient prescribed a controlled substance at d/c from ED?: No Referrals: Alison Leon MD [Primary Care Provider] - 1-2 days Time of Disposition: 19:32
[2023-09-07 18:11] LABS: INR 1.5 (<1.2); Partial Thromboplastin Time 34.7 sec (22.0-30.0); Prothrombin Time 14.6 sec (9.0-12.0)
[2023-09-07 19:00] LABS: ALT 37 U/L (4-49); AST 36 U/L (17-59); African American GFR (CKD) 55 (>60 ml/min/1.73 sqM); Albumin 3.2 g/dL (3.5-5.0); Alkaline Phosphatase 195 U/L (38-126); Anion Gap 5 mmol/L; Blood Urea Nitrogen 89 mg/dL (9-20); Calcium 8.8 mg/dL (8.4-10.2); Carbon Dioxide 40 mmol/L (22-30); Chloride 96 mmol/L (98-107); Glucose 125 mg/dL (74-99); Magnesium 1.9 mg/dL (1.6-2.3); Non-African American GFR(CKD) 48 (>60 ml/min/1.73 sqM); Potassium 4.2 mmol/L (3.5-5.1); Sodium 141 mmol/L (137-145); Total Bilirubin 0.8 mg/dL (0.2-1.3); Total Protein 6.3 g/dL (6.3-8.2)
[2023-09-07 19:09] LABS: NT-Pro-B-Type Natriuretic Pept 4260 pg/mL
[2023-09-07] MEDS ORDERED: FUROSEMIDE 10 MG/ML 4 ML VIAL IV STA (19:14)
[2023-09-07] MEDS ORDERED: NALOXONE 0.4 MG/ML 1 ML VIAL IV PRN (19:28)
[2023-09-07] MEDS: predniSONE 50 MG TAB PO SCH (19:52)
[2023-09-07] MEDS: IPRATROPIUM-ALBUTEROL 3 ML NEB INHALATION SCH ×2 (20:58→23:33)
[2023-09-08] MEDS: IPRATROPIUM-ALBUTEROL 3 ML NEB INHALATION SCH ×5 (03:47→20:27)
[2023-09-08] MEDS: predniSONE 50 MG TAB PO SCH (07:53)
[2023-09-08] MEDS ORDERED: ACETAMINOPHEN TAB 500 MG TAB PO PRN (07:59)
[2023-09-08] MEDS ORDERED: ARTIFICIAL TEARS-HYPROMELLOSE DROPS 15 ML BTL BOTH EYES PRN (07:59)
[2023-09-08] MEDS ORDERED: IPRATROPIUM-ALBUTEROL 3 ML NEB INHALATION SCH (08:00)
[2023-09-08] MEDS ORDERED: FUROSEMIDE 10 MG/ML 4 ML VIAL IV SCH (09:00)
[2023-09-08] MEDS: BUDESONIDE 1 MG/2 ML NEBU INHALATION SCH ×2 (09:00→20:27)
[2023-09-08] MEDS: AMMONIUM LACTATE 12% LOTION 225 GM BTL TOPICAL SCH ×2 (09:23→23:45)
[2023-09-08] MEDS: CEFDINIR 300 MG CAP PO SCH ×2 (09:24→09:36)
[2023-09-08] MEDS: PANTOPRAZOLE 40 MG TABLET PO SCH (09:34)
[2023-09-08] MEDS: CHOLECALCIFEROL 25 MCG (1000 IU) TABLET PO SCH (09:34)
[2023-09-08] MEDS: METOPROLOL TARTRATE 25 MG TAB PO SCH ×2 (09:34→21:59)
[2023-09-08] MEDS: SPIRONOLACTONE 25 MG TAB PO SCH (09:35)
[2023-09-08] MEDS: allopurinoL 100 MG TAB PO SCH (09:35)
[2023-09-08] MEDS: CYANOCOBALAMIN 500 MCG TAB PO SCH (09:36)
[2023-09-08] MEDS: TAMSULOSIN 0.4 MG CAP.ER.24H PO SCH (09:36)
--- NOTE | 2023-09-08 11:42 | P.CRDCN ---
History of Present Illness History of present illness: HISTORY OF PRESENT ILLNESS: This is a 73-year-old male with a past medical history significant for minimal coronary artery disease, congestive heart failure, hypertension, hyperlipidemia, COPD, paroxysmal atrial fibrillation, obstructive sleep apnea, and chronic hyp oxic respiratory failure. Patient follows in the office with Dr. Ngo. We have been asked to see the patient in consultation for CHF. Patient examined at the bedside in the emergency room. Patient was brought to the hospital from his snf for shortness of breath. Patient was initially on BiPAP however he is on nasal cannula time of examination. He does report shortness of breath. He denies chest pain or pressure. He was started on IV Lasix 40 mg every 8 hours by pulmonary service. * EKG reveals sinus mechanism with no signs of acute ischemia * Chest xray marked acute cardiopulmonary disease most consistent with CHF * Current home cardiac medications include Aldactone 12.5 mg daily, Lipitor 20 mg at night, metoprolol tartrate 37.5 mg twice a day, Demadex 40 mg daily, Xarelto 15 mg at night * Most recent echocardiogram obtained in August 2020 through ejection fraction 50-55% * Cardiac catheterization history: October 2016 revealing minimal coronary artery disease REVIEW OF SYSTEMS: At the time of my exam: CONSTITUTIONAL: Denies fever or chills. HEENT: Denies blurred vision, vision changes, or eye pain. Denies hemoptysis CARDIOVASCULAR: Denies chest pain. Denies orthopnea. Denies PND. Denies palpitations RESPIRATORY: + shortness of breath. GASTROINTESTINAL: Denies abdominal pain. Denies nausea or vomiting. HEMATOLOGIC: Denies bleeding disorders. GENITOURINARY: Denies any blood in urine. SKIN: Denies pruitis. Denies rash. PHYSICAL EXAM: VITAL SIGNS: Reviewed. GENERAL: Well-developed in no acute distress. HEENT: Head is normocephalic. Pupils are equal, round. Sclerae anicteric. Mucous membranes of the mouth are moist. Neck supple. No JVD or thyromegaly LUNGS: Respirations even and unlabored. Lungs diminished bilaterally HEART: Regular rate and rhythm. S1 and S2 heard. ABDOMEN: Soft. Nondistended. Nontender. EXTREMITIES: Normal range of motion. No clubbing or cyanosis. Peripheral pulses intact. 2+ bilateral lower extremity edema NEUROLOGIC: Awake and alert. Oriented x 3. ASSESSMENT: Shortness of breath Acute on chronic heart failure with preserved ejection fraction Acute on chronic hypoxic respiratory failure COPD Obstructive sleep apnea Paroxysmal atrial fibrillation Valvular heart disease Hypertension Hyperlipidemia PLAN: Continue current cardiac medications Patient's Lasix has been increased to 40 mg every 8 hours per pulmonary medicine Daily weights, accurate I&O, and monitor kidney function Further recommendations pending patient's course Nurse practitioner note has been reviewed by physician. Signing provider agrees with the documented findings, assessment, and plan of care. Past Medical History Past Medical History: Asthma, Chest Pain / Angina, GERD/Reflux, Hyperlipidemia, Hypertension, Osteoarthritis (OA), Pneumonia, Sleep Apnea/CPAP/BIPAP Additional Past Medical History / Comment(s): uses oxygen at night 2L, gout, in wheelchair or walker due to pain in left leg, poor circulation in legs History of Any Multi-Drug Resistant Organisms: None Reported Past Surgical History: Orthopedic Surgery, Tonsillectomy Additional Past Surgical History / Comment(s): LEFT WRIST ORIF, LEFT KNEE REPLACEMENT, bilateral cataract surgery Past Anesthesia/Blood Transfusion Reactions: No Reported Reaction Additional Past Anesthesia/Blood Transfusion Reaction / Comment(s): . Past Psychological History: Depression Smoking Status: Former smoker Past Alcohol Use History: None Reported Past Drug Use History: None Reported - Past Family History Mother Family Medical History: Congestive Heart Failure (CHF), Osteoarthritis (OA) Father Additional Family Medical History / Comment(s): FROM [place] Brother(s) Family Medical History: Cancer Additional Family Medical History / Comment(s): . Sister(s) Family Medical History: Deep Vein Thrombosis (DVT) Medications and Allergies Home Medications Medication Instructions Recorded Confirmed Type Sertraline [Zoloft] 100 mg PO HS 04/04/17 09/07/23 History Atorvastatin [Lipitor] 20 mg PO HS 07/14/19 09/07/23 History Tamsulosin [Flomax] 0.4 mg PO DAILY 07/14/19 09/07/23 History Ipratropium-Albuterol Nebulize 3 ml INHALATION RT-Q6H 08/19/19 09/07/23 History [Duoneb 0.5 mg-3 mg/3 ml Soln] Acetaminophen Tab [Tylenol] 500 mg PO Q6H PRN 03/26/23 09/07/23 History Cholecalciferol [Vitamin D3 (25 50 mcg PO DAILY 03/26/23 09/07/23 History Mcg = 1000 Iu)] Rivaroxaban [Xarelto] 15 mg PO W/SUPPER #30 tab 06/25/23 09/07/23 Rx Benzonatate [Tessalon Perles] 200 mg PO TID PRN cap 07/17/23 09/07/23 Rx Montelukast [Singulair] 10 mg PO HS 08/07/23 09/07/23 History Omeprazole [PriLOSEC] 20 mg PO DAILY 08/07/23 09/07/23 History Budesonide [Pulmicort] 1 mg INHALATION RT-BID ml 08/11/23 09/07/23 Rx Melatonin 10 mg PO HS PRN tab 08/11/23 09/07/23 Rx Spironolactone [Aldactone] 12.5 mg PO DAILY tab 08/11/23 09/07/23 Rx Ammonium Lactate Lotion 1 applic TOPICAL BID 08/23/23 09/07/23 History [Lac-Hydrin 12% Lotion] Metoprolol Tartrate [Lopressor] 37.5 mg PO BID 08/23/23 09/07/23 History allopurinoL 200 mg PO DAILY 08/23/23 09/07/23 History Artificial Tears-Hypromellose 1 drops BOTH EYES TID PRN ml 09/04/23 09/07/23 Rx [Artificial Tear Drops] Cefuroxime [Ceftin] 250 mg PO BID 7 Days #14 tab 09/04/23 09/07/23 Rx Cyanocobalamin [Vitamin B-12] 1,000 mcg PO DAILY tab 09/04/23 09/07/23 Rx Gabapentin [Neurontin] 300 mg PO HS #3 cap 09/04/23 09/07/23 Rx Nystatin 100,000 Unit/gm Powd 1 applic TOPICAL BID #0 each 09/04/23 09/07/23 Rx [Mycostatin Powder] Torsemide [Demadex] 40 mg PO DAILY tab 09/04/23 09/07/23 Rx INSULIN ASPART (NovoLOG) [NovoLOG See Protocol SQ AC-TID 09/07/23 09/07/23 History (formulary)] predniSONE See Taper PO DIRECTED 09/07/23 09/07/23 History Allergies Allergy/AdvReac Type Severity Reaction Status Date / Time No Known Allergies Allergy Verified 09/07/23 17:59 Physical Exam Vitals: Vital Signs Temp Pulse Resp BP Pulse Ox FiO2 09/08/23 11:00 58 L 22 110/63 97 09/08/23 08:00 85 24 148/85 94 L 09/08/23 07:48 56 L 09/08/23 07:43 54 L 20 96 09/08/23 07:27 52 L 30 09/08/23 06:41 53 L 20 115/83 96 09/08/23 03:54 53 L 09/08/23 03:52 30 09/08/23 03:51 55 L 22 117/61 97 09/08/23 03:48 56 L 09/07/23 23:53 30 09/07/23 23:45 61 09/07/23 23:35 59 L 09/07/23 23:30 57 L 20 103/55 93 L 09/07/23 21:35 55 L 20 119/66 94 L 09/07/23 21:09 57 L 09/07/23 20:59 56 L 09/07/23 20:30 96/54 09/07/23 18:22 61 22 94 L 09/07/23 17:30 59 L 19 98/52 94 L 09/07/23 17:00 59 L 18 106/59 96 09/07/23 16:49 95 09/07/23 16:38 24 09/07/23 16:30 126/88 95 09/07/23 16:29 95 09/07/23 16:22 97.9 F 61 18 131/92 96 Intake and Output 09/07/23 09/08/23 09/08/23 22:59 06:59 14:59 Other: Weight 125.191 kg Results 09/07/23 16:40 09/07/23 18:46 Cardiac Enzymes 09/07/23 09/07/23 Range/Units 18:46 18:46 AST 36 (17-59) U/L Troponin I <0.012 (0.000-0.034) ng/mL Coagulation 09/07/23 Range/Units 16:40 PT 14.6 H (9.0-12.0) sec APTT 34.7 H (22.0-30.0) sec CBC 09/07/23 Range/Units 16:40 WBC 8.7 (3.8-10.6) k/uL RBC 3.36 L (4.30-5.90) m/uL Hgb 9.3 L D (13.0-17.5) gm/dL Hct 30.5 L (39.0-53.0) % Plt Count 297 (150-450) k/uL Comprehensive Metabolic Panel 09/07/23 Range/Units 18:46 Sodium 141 (137-145) mmol/L Potassium 4.2 (3.5-5.1) mmol/L Chloride 96 L (98-107) mmol/L Carbon Dioxide 40 H (22-30) mmol/L BUN 89 H (9-20) mg/dL Creatinine 1.44 H (0.66-1.25) mg/dL Glucose 125 H (74-99) mg/dL Calcium 8.8 (8.4-10.2) mg/dL AST 36 (17-59) U/L ALT 37 (4-49) U/L Alkaline Phosphatase 195 H (38-126) U/L Total Protein 6.3 (6.3-8.2) g/dL Albumin 3.2 L (3.5-5.0) g/dL Current Medications Generic Name Dose Route Start Last Admin Trade Name Freq PRN Reason Stop Dose Admin Acetaminophen 500 mg 09/08/23 07:59 Acetaminophen Tab 500 Mg Tab PO Q6H PRN Pain Albuterol/Ipratropium 3 ml 09/07/23 20:00 09/08/23 07:27 Ipratropium-Albuterol 3 Ml Neb INHALATION 3 ml RT-Q4H JENNIFER Administration Allopurinol 200 mg 09/08/23 09:00 09/08/23 09:35 Allopurinol 100 Mg Tab PO 200 mg DAILY JENNIFER Administration Artificial Tears 1 drops 09/08/23 07:59 Artificial Tears-Hypromellose Drops 15 Ml Btl BOTH EYES TID PRN Dry Eye(s) Atorvastatin Calcium 20 mg 09/08/23 21:00 Atorvastatin 20 Mg Tab PO HS JENNIFER Benzonatate 200 mg 09/08/23 07:59 Benzonatate 100 Mg Cap PO TID PRN Cough Budesonide 1 mg 09/08/23 08:00 09/08/23 09:00 Budesonide 1 Mg/2 Ml Nebu INHALATION Not Given RT-BID JENNIFER Cefdinir 300 mg 09/08/23 09:00 09/08/23 09:24 Cefdinir 300 Mg Cap PO 09/10/23 23:00 300 mg BID JENNIFER Administration Cholecalciferol 50 mcg 09/08/23 09:00 09/08/23 09:34 Cholecalciferol 25 Mcg (1000 Iu) Tablet PO 50 mcg DAILY JENNIFER Administration Cyanocobalamin 1,000 mcg 09/08/23 09:00 09/08/23 09:36 Cyanocobalamin 500 Mcg Tab PO 1,000 mcg DAILY JENNIFER Administration Furosemide 40 mg 09/08/23 16:00 Furosemide 10 Mg/Ml 4 Ml Vial IV Q8HR JENNIFER Gabapentin 300 mg 09/08/23 21:00 Gabapentin 300 Mg Cap PO HS JENNIFER Lactic Acid 1 applic 09/08/23 09:00 09/08/23 09:23 Ammonium Lactate 12% Lotion 225 Gm Btl TOPICAL 1 applic BID JENNIFER Administration Protocol Melatonin 10 mg 09/08/23 07:59 Melatonin 5 Mg Tablet PO HS PRN Insomnia Metoprolol Tartrate 37.5 mg 09/08/23 09:00 09/08/23 09:34 Metoprolol Tartrate 25 Mg Tab PO 37.5 mg BID JENNIFER Administration Montelukast Sodium 10 mg 09/08/23 21:00 Montelukast 10 Mg Tab PO HS JENNIFER Naloxone HCl 0.2 mg 09/07/23 19:28 Naloxone 0.4 Mg/Ml 1 Ml Vial IV Q2M PRN Opioid Reversal Pantoprazole Sodium 40 mg 09/08/23 09:00 09/08/23 09:34 Pantoprazole 40 Mg Tablet PO 40 mg [id number] JENNIFER Administration Prednisone 50 mg 09/07/23 19:30 09/08/23 07:53 Prednisone 50 Mg Tab PO 50 mg DAILY JENNIFER Administration Rivaroxaban 15 mg 09/08/23 17:30 Rivaroxaban 15 Mg Tab PO W/SUPPER JENNIFER Protocol Sertraline HCl 100 mg 09/08/23 21:00 Sertraline 100 Mg Tab PO HS JENNIFER Spironolactone 12.5 mg 09/08/23 09:00 10 09:35 Spironolactone 25 Mg Tab PO 12.5 mg DAILY JENNIFER Administration Tamsulosin HCl 0.4 mg 09/08/23 09:00 09/08/23 09:36 Tamsulosin 0.4 Mg Cap.Er.24h PO 0.4 mg DAILY JENNIFER Administration Intake and Output 09/07/23 09/08/23 09/08/23 22:59 06:59 14:59 Other: Weight 125.191 kg 09/07/23 16:40 09/07/23 18:46
--- NOTE | 2023-09-08 14:51 | P.CNPUL ---
History of Present Illness Consult date: 09/08/23 Requesting physician: Alison Leon Reason for consult: dyspnea Chief complaint: Shortness of breath History of present illness: The patient is seen today 09/08/2023 in consultation in the emergency department. He was just discharged to an [facility] on 09/05/2023 and returned to the hospital on 09/07/2023 He is seen again for acute hypoxemic and hypercapnic respiratory failure requiring BiPAP. He is a 73-year-old male who is morbidly obese and debilitated, he has past medical history of asthma, obstructive sleep apnea with CPAP, chronic oxygen dependence, hyperlipidemia, hypertension, congestive heart failure, paroxysmal atrial fibrillation, and his remote ex- smoker over 30 years ago. Chest x-ray on arrival was consistent with pulmonary edema. Recent echocardiogram shows a preserved left ventricular ejection fraction of 50-55%. Exam was otherwise limited. He is currently on BiPAP 12/5 and 30% FiO2. He is continued on DuoNeb inhalations, Pulmicort and Perforomist inhalations, prednisone taper. Lasix 40 mg IV every 12 hours. Continued on Omnicef from recent admission. Anticoagulated with Xarelto. White count 8.7. Hemoglobin 9.3. Platelets 297. Sodium 141. Potassium 4.2. Bicarb 40. BUN 89. Creatinine 1.44. Glucose 125. Troponin negative times one. ProBNP 4260. Review of Systems REVIEW OF SYSTEMS: CONSTITUTIONAL: Positive for weight gain. EYES: Denies change in vision. EARS, NOSE, MOUTH, THROAT: Denies headaches, denies sore throat. CARDIOVASCULAR: Denies chest pain, palpitations or syncopal episodes. RESPIRATORY: Positive for shortness of breath, no cough, congestion or hemoptysis. GASTROINTESTINAL: Denies change in appetite, denies abdominal pain GENITOURINARY: Denies hematuria, denies infections. MUSKULOSKELETAL: Positive for swelling. INTEGUMENTARY: Denies rash, denies eczema. NEUROLOGICAL: Denies recent memory loss, no recent seizure activity. PSYCHIATRIC: Denies anxiety, denies depression. HEMATOLOGIC/LYMPHATIC: Denies anemia, denies enlarged lymph nodes. Past Medical History Past Medical History: Asthma, Chest Pain / Angina, GERD/Reflux, Hyperlipidemia, Hypertension, Osteoarthritis (OA), Pneumonia, Sleep Apnea/CPAP/BIPAP Additional Past Medical History / Comment(s): uses oxygen at night 2L, gout, in wheelchair or walker due to pain in left leg, poor circulation in legs History of Any Multi-Drug Resistant Organisms: None Reported Past Surgical History: Orthopedic Surgery, Tonsillectomy Additional Past Surgical History / Comment(s): LEFT WRIST ORIF, LEFT KNEE REPLACEMENT, bilateral cataract surgery Past Anesthesia/Blood Transfusion Reactions: No Reported Reaction Additional Past Anesthesia/Blood Transfusion Reaction / Comment(s): . Past Psychological History: Depression Smoking Status: Former smoker Past Alcohol Use History: None Reported Past Drug Use History: None Reported - Past Family History Mother Family Medical History: Congestive Heart Failure (CHF), Osteoarthritis (OA) Father Additional Family Medical History / Comment(s): FROM [place] Brother(s) Family Medical History: Cancer Additional Family Medical History / Comment(s): . Sister(s) Family Medical History: Deep Vein Thrombosis (DVT) Medications and Allergies Home Medications Medication Instructions Recorded Confirmed Type Sertraline [Zoloft] 100 mg PO HS 04/04/17 09/07/23 History Atorvastatin [Lipitor] 20 mg PO HS 07/14/19 09/07/23 History Tamsulosin [Flomax] 0.4 mg PO DAILY 07/14/19 09/07/23 History Ipratropium-Albuterol Nebulize 3 ml INHALATION RT-Q6H 08/19/19 09/07/23 History [Duoneb 0.5 mg-3 mg/3 ml Soln] Acetaminophen Tab [Tylenol] 500 mg PO Q6H PRN 03/26/23 09/07/23 History Cholecalciferol [Vitamin D3 (25 50 mcg PO DAILY 03/26/23 09/07/23 History Mcg = 1000 Iu)] Rivaroxaban [Xarelto] 15 mg PO W/SUPPER #30 tab 06/25/23 09/07/23 Rx Benzonatate [Tessalon Perles] 200 mg PO TID PRN cap 07/17/23 09/07/23 Rx Montelukast [Singulair] 10 mg PO HS 08/07/23 09/07/23 History Omeprazole [PriLOSEC] 20 mg PO DAILY 08/07/23 09/07/23 History Budesonide [Pulmicort] 1 mg INHALATION RT-BID ml 08/11/23 09/07/23 Rx Melatonin 10 mg PO HS PRN tab 08/11/23 09/07/23 Rx Spironolactone [Aldactone] 12.5 mg PO DAILY tab 08/11/23 09/07/23 Rx Ammonium Lactate Lotion 1 applic TOPICAL BID 08/23/23 09/07/23 History [Lac-Hydrin 12% Lotion] Metoprolol Tartrate [Lopressor] 37.5 mg PO BID 08/23/23 09/07/23 History allopurinoL 200 mg PO DAILY 08/23/23 09/07/23 History Artificial Tears-Hypromellose 1 drops BOTH EYES TID PRN ml 09/04/23 09/07/23 Rx [Artificial Tear Drops] Cefuroxime [Ceftin] 250 mg PO BID 7 Days #14 tab 09/04/23 09/07/23 Rx Cyanocobalamin [Vitamin B-12] 1,000 mcg PO DAILY tab 09/04/23 09/07/23 Rx Gabapentin [Neurontin] 300 mg PO HS #3 cap 09/04/23 09/07/23 Rx Nystatin 100,000 Unit/gm Powd 1 applic TOPICAL BID #0 each 09/04/23 09/07/23 Rx [Mycostatin Powder] Torsemide [Demadex] 40 mg PO DAILY tab 09/04/23 09/07/23 Rx INSULIN ASPART (NovoLOG) [NovoLOG See Protocol SQ AC-TID 09/07/23 09/07/23 History (formulary)] predniSONE See Taper PO DIRECTED 09/07/23 09/07/23 History Allergies Allergy/AdvReac Type Severity Reaction Status Date / Time No Known Allergies Allergy Verified 09/07/23 17:59 Physical Exam Vitals: Vital Signs Temp Pulse Resp BP Pulse Ox FiO2 09/08/23 11:57 56 L 09/08/23 11:47 56 L 09/08/23 11:00 58 L 22 110/63 97 09/08/23 08:00 85 24 148/85 94 L 09/08/23 07:48 56 L 09/08/23 07:43 54 L 20 96 09/08/23 07:27 52 L 30 09/08/23 06:41 53 L 20 115/83 96 09/08/23 03:54 53 L 09/08/23 03:52 30 09/08/23 03:51 55 L 22 117/61 97 09/08/23 03:48 56 L 09/07/23 23:53 30 09/07/23 23:45 61 09/07/23 23:35 59 L 09/07/23 23:30 57 L 20 103/55 93 L 09/07/23 21:35 55 L 20 119/66 94 L 09/07/23 21:09 57 L 09/07/23 20:59 56 L 09/07/23 20:30 96/54 09/07/23 18:22 61 22 94 L 09/07/23 17:30 59 L 19 98/52 94 L 09/07/23 17:00 59 L 18 106/59 96 09/07/23 16:49 95 09/07/23 16:38 24 09/07/23 16:30 126/88 95 09/07/23 16:29 95 09/07/23 16:22 97.9 F 61 18 131/92 96 Intake and Output 09/07/23 09/08/23 09/08/23 22:59 06:59 14:59 Other: Weight 125.191 kg GENERAL EXAM: Alert, morbidly obese 73-year-old male on BiPAP 12/5 and 30% FiO2, fairly comfortable in no apparent distress. HEAD: Normocephalic. EYES: Normal reaction of pupils, equal size. NOSE: Clear with pink turbinates. THROAT: No erythema or exudates. NECK: No masses, no JVD. CHEST: No chest wall deformity. LUNGS: Equal air entry with bibasilar crackles, diminished. CVS: S1 and S2 normal with no audible murmur, regular rhythm. ABDOMEN: Obese. Normal bowel sounds, no guarding or rigidity. SPINE: No scoliosis or deformity SKIN: No rashes, Toribio wraps to lower extremities CENTRAL NERVOUS SYSTEM: No focal deficits, tone is normal in all 4 extremities. EXTREMITIES: His wraps to the lower extremities. Changes of chronic venous stasis. There is 2+ peripheral edema. Peripheral pulses are intact. Results - Laboratory Findings CBC and BMP: 09/07/23 16:40 09/07/23 18:46 PT/INR, D-dimer PT 14.6 sec (9.0-12.0) H 09/07/23 16:40 INR 1.5 (<1.2) H 09/07/23 16:40 Abnormal lab findings: Abnormal Labs 09/07/23 09/07/23 09/07/23 16:40 16:40 18:46 RBC 3.36 L Hgb 9.3 L D Hct 30.5 L MCHC 30.4 L RDW 18.5 H Lymphocytes # 0.7 L PT 14.6 H INR 1.5 H APTT 34.7 H Chloride 96 L Carbon Dioxide 40 H BUN 89 H Creatinine 1.44 H Glucose 125 H Alkaline Phosphatase 195 H Albumin 3.2 L - Diagnostic Findings Chest x-ray: image reviewed Assessment and Plan Assessment: Acute exacerbation of diastolic CHF, with significant cardiomegaly, pulmonary vascular congestion, and small effusions. Echocardiogram from 08/25/23 showed ejection fraction of left ventricle in the order of 50-55%, and otherwise was a limited exam. Chest x-ray from 09/07/2023 showed cardiomegaly with evidence of pulmonary vascular congestion and small pleural effusions Acute exacerbation of chronic bronchial asthma/COPD, improving and the patient remains on bronchodilators and systemic steroids Acute on chronic hypoxemic and hypercapnic respiratory failure secondary to above, currently alternating with BiPAP and nasal cannula Paroxysmal A. fib maintenance and he is on anticoagulation with Xarelto Acute on chronic kidney disease, patient has a history of chronic kidney disease stage III, creatinine is currently at 1.44 Acute metabolic encephalopathy, improved and the mental status is back to its baseline Anemia of chronic disease Obstructive sleep apnea syndrome, maintained on CPAP Chronic venous stasis and right lower extremity wounds Benign essential hypertension History of hyperlipidemia Morbid obesity, with a BMI of 45.9 kg/m Poor overall functional performance based on the above-mentioned multiple comorbidities, frequent readmissions Resides in extended care facility Plan: The patient was seen and evaluated Chest x-ray, labs and medications reviewed Increase Lasix to 40 mg IV every 8 hours Continue Xarelto Continue Omnicef, check a pro-calcitonin Transition to nasal cannula as tolerated Check for COVID-19 infection Titrate the FiO2 as tolerated We will continue to follow and make further recommendations based on his clinical status I have personally seen and examined the patient, performed the documentation and the assessment and plan as written. Number of minutes spent on the visit: 20.
--- NOTE | 2023-09-08 16:31 | P.HPIM ---
History of Present Illness H&P Date: 09/08/23 HISTORY OF PRESENT ILLNESS: This is a 73-year-old male with a previous medical history significant for hypertension and hypertensive cardiovascular disease, hyperlipidemia, obesity with obstructive sleep apnea and obesity hypoventilation syndrome, chronic diastolic heart failure, asthma, hypothyroidism, anxiety and depressive disorder, peripheral neuropathy. Patient has had multiple hospitalizations for acute on chronic diastolic heart failure and acute exacerbation of COPD. Patient has had multiple hospitalizations for acute on chronic diastolic heart failure, pulmonary edema, acute exacerbation of COPD and acute on chronic respiratory failure. He most recently was discharged to [facility] on 09/05 is stable condition. He had an extended hospitalization and was also worked up for acute kidney injury, thrombocytopenia, anemia with concern for MDS seen by oncology thought to be due to acute reactivity. Patient apparently was found to have a pulse ox in the mid 80s. He is normally on 4 L nasal cannula. He was transferred to [facility] [place] for further evaluation and treatment. He was placed on a BiPAP and is seen this morning on 2 L nasal cannula. Patient denies any worsening shortness of breath at the time of the valve. No chest pain. WBC 8.7, hemoglobin 9.3 and platelet count 297. BUN 89 and creatinine 1.44. Troponin was negative. Patient was started on his home medications and IV Lasix 40 mg every [address] with probably medicine and cardiology. Patient is seen today in the emergency center waiting for a bed on the [facility] floor. REVIEW OF SYSTEMS: Constitutional: No documented fever, no chills, no night sweats. No weight change. No weakness, fatigue or lethargy. No daytime sleepiness. HEENT: No headache. No blurred vision or double vision, no loss of vision. No loss of Hearing, no ringing in the ears, no dizziness. No nasal drainage or congestion. No epistaxis. No sore throat. Lungs: positive for shortness of breath, occasional cough, minimal sputum production. No wheezing. Reports dyspnea with activity. Cardiovascular: positive for chest pain, positive for lower extremity edema. No palpitations. No paroxysmal nocturnal dyspnea. No orthopnea. No lightheadedness or dizziness. No syncopal episodes. Abdominal: Reports abdominal pain. No nausea, vomiting. No diarrhea. No constipation. No bloody or tarry stools reports loss of appetite. Genitourinary: No dysuria, increased frequency, urgency. No urinary retention. Musculoskeletal: No myalgias. positive for muscle weakness, positive for gait dysfunction, positive for frequent falls. positive for back pain. No neck pain, bilateral hip pain Integumentary: No wounds, no lesions. No rash or pruritus. No unusual bruisi ng. No change in hair or nails. Neurologic: No aphasia. No facial droop. No change in mentation. No head injury. No headache. No paralysis. No paresthesia. Psychiatric: No depression. No anxiety. No mood swings. Endocrine: No abnormal blood sugars. No weight change. PAST MEDICAL HISTORY: Hypertension and hypertensive cardiovascular disease. Hyperlipidemia. Hypothyroidism. Obesity with obstructive sleep apnea and obesity hypoventilation syndrome Moderate persistent asthma. Enlarged prostate. Anxiety. Chronic diastolic heart failure. PAST SURGICAL HISTORY: Left knee replacement Circumcision Colonoscopy SOCIAL HISTORY: She used to smoke about pack every day he smoked for many years and quit about 15 years ago, he denies any alcohol ingestion, no drug use or abuse. FAMILY HISTORY: Father at age of 61 from [place] mother at age of 70 and she had osteoarthritis patient had 3 brothers one from lung cancer one with CAD and 1 Parkinson disease and patient had 5 sisters all have passed PHYSICAL EXAMINATION: General: 72-year-old male lying down in bed in no respiratory distress HEENT: Head is atraumatic, normocephalic, pupils were equal round reactive to light and recommendation, extraocular muscle movement were intact, sclera nonicteric, conjunctivae were pale, mucous membranes of the mouth are somewhat dry. Neck: Supple, no JVP, normal carotid upstroke bilaterally, no lymphadenopathy. Chest: Decreased breath sounds at the bases, few rhonchi, no expiratory wheezes, no chest wall tenderness, no intercostal retractions. Heart: First heart sound is normal, second heart sound is normal, there is systolic ejection murmur 2/6 located in the left sternal border. Abdomen: Soft, nontender, nondistended, positive bowel sounds, obese. Extremities: There is +2 edema no calf tenderness DP +2 bilaterally, there is bilateral scabbed lesions in both shins free Neurologic examination: Patient is awake alert and oriented X 3, cranial nerves II-12 appear grossly intact, muscle power were 5 out of 5 in upper extremities and 3/5 in bilateral lower extremities ASSESSMENT AND PLAN: 1. Acute hypoxemic respiratory failure due to acute on chronic diastolic heart failure and acute exacerbation of COPD wit RAMYA and OHS. patient was started on Lasix 40 mg IV push every 8 hours, monitor input and output and daily weight, continue spironolactone 25 mg orally once every day, metoprolol 37.5 mg orally twice every day, Pulmicort 1 mg twice daily, DuoNeb treatments every 4 hours, singular 10 mg at bedtime, prednisone 50 mg daily cardiology consultation and pulmonary consultation appreciated. 2. COPD/moderate persistent asthma exacerbation with chronic hypoxemic respiratory failure continue oxygen support continue DuoNeb 3 mg nebulization 4 times every day, Pulmicort 1 mg twice daily. 3. Paroxysmal atrial fibrillation/ Flutter. Continue patient on metoprolol 37.5 mg orally twice every day, on Xarelto 15 mg orally once every day 4. Hypertension and hypertensive cardiovascular disease. Continue patient on metoprolol 37.5 mg orally twice every day, monitor the patient blood pressure very closely. 5. Hyperlipidemia. Continue patient on atorvastatin 20 mg orally once every day, monitor lipid panel, keep LDL 55-70. 6. Enlarged prostate. Continue patient on tamsulosin 0.4 mg orally once every day. Patient has Lynn catheter. 7. Anxiety disorder. Continue patient on sertraline 100 mg orally once every day. 8. Neuropathy. Continue patient on gabapentin 300 mg at bedtime. 9. DVT prophylaxis. Continue Xarelto 15 mg po daily 10. GI prophylaxis. Continue patient on Protonix 40 mg orally once every day. 11. Admit to inpatient. Estimate a length of stay 2 midnights. 13. criminal justice social worker consult. Impression and plan of care have been directed as dictated by the signing physician. Concepción Perkins nurse practitioner acting as scribe for signing physician. Past Medical History Past Medical History: Asthma, Chest Pain / Angina, GERD/Reflux, Hyperlipidemia, Hypertension, Osteoarthritis (OA), Pneumonia, Sleep Apnea/CPAP/BIPAP Additional Past Medical History / Comment(s): uses oxygen at night 2L, gout, in wheelchair or walker due to pain in left leg, poor circulation in legs History of Any Multi-Drug Resistant Organisms: None Reported Past Surgical History: Orthopedic Surgery, Tonsillectomy Additional Past Surgical History / Comment(s): LEFT WRIST ORIF, LEFT KNEE REPLACEMENT, bilateral cataract surgery Past Anesthesia/Blood Transfusion Reactions: No Reported Reaction Additional Past Anesthesia/Blood Transfusion Reaction / Comment(s): . Past Psychological History: Depression Smoking Status: Former smoker Past Alcohol Use History: None Reported Past Drug Use History: None Reported - Past Family History Mother Family Medical History: Congestive Heart Failure (CHF), Osteoarthritis (OA) Father Additional Family Medical History / Comment(s): FROM [place] Brother(s) Family Medical History: Cancer Additional Family Medical History / Comment(s): . Sister(s) Family Medical History: Deep Vein Thrombosis (DVT) Medications and Allergies Home Medications Medication Instructions Recorded Confirmed Type Sertraline [Zoloft] 100 mg PO HS 04/04/17 09/07/23 History Atorvastatin [Lipitor] 20 mg PO HS 07/14/19 09/07/23 History Tamsulosin [Flomax] 0.4 mg PO DAILY 07/14/19 09/07/23 History Ipratropium-Albuterol Nebulize 3 ml INHALATION RT-Q6H 08/19/19 09/07/23 History [Duoneb 0.5 mg-3 mg/3 ml Soln] Acetaminophen Tab [Tylenol] 500 mg PO Q6H PRN 03/26/23 09/07/23 History Cholecalciferol [Vitamin D3 (25 50 mcg PO DAILY 03/26/23 09/07/23 History Mcg = 1000 Iu)] Rivaroxaban [Xarelto] 15 mg PO W/SUPPER #30 tab 06/25/23 09/07/23 Rx Benzonatate [Tessalon Perles] 200 mg PO TID PRN cap 07/17/23 09/07/23 Rx Montelukast [Singulair] 10 mg PO HS 08/07/23 09/07/23 History Omeprazole [PriLOSEC] 20 mg PO DAILY 08/07/23 09/07/23 History Budesonide [Pulmicort] 1 mg INHALATION RT-BID ml 08/11/23 09/07/23 Rx Melatonin 10 mg PO HS PRN tab 08/11/23 09/07/23 Rx Spironolactone [Aldactone] 12.5 mg PO DAILY tab 08/11/23 09/07/23 Rx Ammonium Lactate Lotion 1 applic TOPICAL BID 08/23/23 09/07/23 History [Lac-Hydrin 12% Lotion] Metoprolol Tartrate [Lopressor] 37.5 mg PO BID 08/23/23 09/07/23 History allopurinoL 200 mg PO DAILY 08/23/23 09/07/23 History Artificial Tears-Hypromellose 1 drops BOTH EYES TID PRN ml 09/04/23 09/07/23 Rx [Artificial Tear Drops] Cefuroxime [Ceftin] 250 mg PO BID 7 Days #14 tab 09/04/23 09/07/23 Rx Cyanocobalamin [Vitamin B-12] 1,000 mcg PO DAILY tab 09/04/23 09/07/23 Rx Gabapentin [Neurontin] 300 mg PO HS #3 cap 09/04/23 09/07/23 Rx Nystatin 100,000 Unit/gm Powd 1 applic TOPICAL BID #0 each 09/04/23 09/07/23 Rx [Mycostatin Powder] Torsemide [Demadex] 40 mg PO DAILY tab 09/04/23 09/07/23 Rx INSULIN ASPART (NovoLOG) [NovoLOG See Protocol SQ AC-TID 09/07/23 09/07/23 History (formulary)] predniSONE See Taper PO DIRECTED 09/07/23 09/07/23 History Allergies Allergy/AdvReac Type Severity Reaction Status Date / Time No Known Allergies Allergy Verified 09/07/23 17:59 Physical Exam Vitals: Vital Signs Temp Pulse Resp BP Pulse Ox FiO2 09/08/23 07:48 56 L 09/08/23 07:43 54 L 20 96 09/08/23 07:27 52 L 30 09/08/23 06:41 53 L 20 115/83 96 09/08/23 03:54 53 L 09/08/23 03:52 30 09/08/23 03:51 55 L 22 117/61 97 09/08/23 03:48 56 L 09/07/23 23:53 30 09/07/23 23:45 61 09/07/23 23:35 59 L 09/07/23 23:30 57 L 20 103/55 93 L 09/07/23 21:35 55 L 20 119/66 94 L 09/07/23 21:09 57 L 09/07/23 20:59 56 L 09/07/23 20:30 96/54 09/07/23 18:22 61 22 94 L 09/07/23 17:30 59 L 19 98/52 94 L 09/07/23 17:00 59 L 18 106/59 96 09/07/23 16:49 95 09/07/23 16:38 24 09/07/23 16:30 126/88 95 09/07/23 16:29 95 09/07/23 16:22 97.9 F 61 18 131/92 96 Intake and Output 09/07/23 09/08/23 09/08/23 22:59 06:59 14:59 Other: Weight 125.191 kg Results CBC & Chem 7: 09/07/23 16:40 09/07/23 18:46 Labs: Abnormal Lab Results - Last 24 Hours (Table) 09/07/23 09/07/23 09/07/23 Range/Units 16:40 16:40 18:46 RBC 3.36 L (4.30-5.90) m/uL Hgb 9.3 L D (13.0-17.5) gm/dL Hct 30.5 L (39.0-53.0) % MCHC 30.4 L (31.0-37.0) g/dL RDW 18.5 H (11.5-15.5) % Lymphocytes # 0.7 L (1.0-4.8) k/uL PT 14.6 H (9.0-12.0) sec INR 1.5 H (<1.2) APTT 34.7 H (22.0-30.0) sec Chloride 96 L (98-107) mmol/L Carbon Dioxide 40 H (22-30) mmol/L BUN 89 H (9-20) mg/dL Creatinine 1.44 H (0.66-1.25) mg/dL Glucose 125 H (74-99) mg/dL Alkaline Phosphatase 195 H (38-126) U/L Albumin 3.2 L (3.5-5.0) g/dL
[2023-09-08] MEDS: FUROSEMIDE 10 MG/ML 4 ML VIAL IV SCH (17:40)
[2023-09-08] MEDS: RIVAROXABAN 15 MG TAB PO SCH (17:41)
[2023-09-08] MEDS: MELATONIN 5 MG TABLET PO PRN (21:58)
[2023-09-08] MEDS: GABAPENTIN 300 MG CAP PO SCH (22:01)
[2023-09-08] MEDS: ATORVASTATIN 20 MG TAB PO SCH (22:03)
[2023-09-08] MEDS: SERTRALINE 100 MG TAB PO SCH (22:03)
[2023-09-08] MEDS: MONTELUKAST 10 MG TAB PO SCH (22:04)
[2023-09-09] MEDS: FUROSEMIDE 10 MG/ML 4 ML VIAL IV SCH ×4 (00:22→22:39)
[2023-09-09] MEDS: CEFDINIR 300 MG CAP PO SCH ×3 (00:53→22:40)
[2023-09-09] MEDS: PANTOPRAZOLE 40 MG TABLET PO SCH (06:50)
[2023-09-09 08:43] LABS: African American GFR (CKD) 76 (>60 ml/min/1.73 sqM); Anion Gap 5 mmol/L; Blood Urea Nitrogen 75 mg/dL (9-20); Calcium 9.1 mg/dL (8.4-10.2); Carbon Dioxide 39 mmol/L (22-30); Chloride 96 mmol/L (98-107); Glucose 95 mg/dL (74-99); Non-African American GFR(CKD) 66 (>60 ml/min/1.73 sqM); Potassium 3.9 mmol/L (3.5-5.1); Sodium 140 mmol/L (137-145)
--- NOTE | 2023-09-09 08:58 | P.PN ---
Subjective Progress Note Date: 09/09/23 HISTORY OF PRESENT ILLNESS: This is a 73-year-old male with a previous medical history significant for hypertension and hypertensive cardiovascular disease, hyperlipidemia, obesity with obstructive sleep apnea and obesity hypoventilation syndrome, chronic diastolic heart failure, asthma, hypothyroidism, anxiety and depressive disorder, peripheral neuropathy. Patient has had multiple hospitalizations for acute on chronic diastolic heart failure and acute exacerbation of COPD. Patient has had multiple hospitalizations for acute on chronic diastolic heart failure, pulmonary edema, acute exacerbation of COPD and acute on chronic respiratory failure. He most recently was discharged to [facility] on 09/05 is stable condition. He had an extended hospitalization and was also worked up for acute kidney injury, thrombocytopenia, anemia with concern for MDS seen by oncology thought to be due to acute reactivity. Patient apparently was found to have a pulse ox in the mid 80s. He is normally on 4 L nasal cannula. He was transferred to [facility] emergency [facility] for further evaluation and treatment. He was placed on a BiPAP and is seen this morning on 2 L nasal cannula. Patient denies any worsening shortness of breath at the time of the valve. No chest pain. WBC 8.7, hemoglobin 9.3 and platelet count 297. BUN 89 and creatinine 1.44. Troponin was negative. Patient was started on his home medications and IV Lasix 40 mg every [address] with probably me talbot and cardiology. Patient is seen today in the emergency center waiting for a bed on the [facility] floor. 09/09: Patient is seen today on the [facility] floor. Heart rate has been running between 59-108, blood pressure 108/62, pulse ox is 100% on BiPAP.. Pro- calcitonin came back high at 0.11. Patient is maintained on Lasix 40 mg IV every 8 hours and he has diuresed well. It appears that I&O and weights are not accurate. Plan to continue IV Lasix for another day and most likely discharged tomorrow back to [facility]. REVIEW OF SYSTEMS: Constitutional: No documented fever, no chills, no night sweats. No weight change. No weakness, fatigue or lethargy. No daytime sleepiness. HEENT: No headache. No blurred vision or double vision, no loss of vision. No loss of Hearing, no ringing in the ears, no dizziness. No nasal drainage or congestion. No epistaxis. No sore throat. Lungs: positive for shortness of breath, occasional cough, minimal sputum production. No wheezing. Reports dyspnea with activity. Cardiovascular: positive for chest pain, positive for lower extremity edema. No palpitations. No paroxysmal nocturnal dyspnea. No orthopnea. No lightheadedness or dizziness. No syncopal episodes. Abdominal: Reports abdominal pain. No nausea, vomiting. No diarrhea. No constipation. No bloody or tarry stools reports loss of appetite. Genitourinary: No dysuria, increased frequency, urgency. No urinary retention. Musculoskeletal: No myalgias. positive for muscle weakness, positive for gait dysfunction, positive for frequent falls. positive for back pain. No neck pain, bilateral hip pain Integumentary: No wounds, no lesions. No rash or pruritus. No unusual bruising. No change in hair or nails. Neurologic: No aphasia. No facial droop. No change in mentation. No head injury. No headache. No paralysis. No paresthesia. Psychiatric: No depression. No anxiety. No mood swings. Endocrine: No abnormal blood sugars. No weight change. PHYSICAL EXAMINATION: General: 72-year-old male lying down in bed in no respiratory distress HEENT: Head is atraumatic, normocephalic, pupils were equal round reactive to light and recommendation, extraocular muscle movement were intact, sclera nonicteric, conjunctivae were pale, mucous membranes of the mouth are somewhat dry. Neck: Supple, no JVP, normal carotid upstroke bilaterally, no lymphadenopathy. Chest: Decreased breath sounds at the bases, few rhonchi, no expiratory wheezes, no chest wall tenderness, no intercostal retractions. Heart: First heart sound is normal, second heart sound is normal, there is systolic ejection murmur 2/6 located in the left sternal border. Abdomen: Soft, nontender, nondistended, positive bowel sounds, obese. Extremities: There is +1 edema no calf tenderness DP +2 bilaterally, there is bilateral scabbed lesions in both shins free Neurologic examination: Patient is awake alert and oriented X 3, cranial nerves II-12 appear grossly intact, muscle power were 5 out of 5 in upper extremities and 3/5 in bilateral lower extremities ASSESSMENT AND PLAN: 1. Acute hypoxemic respiratory failure due to acute on chronic diastolic heart failure and acute exacerbation of COPD wit RAMYA and OHS. patient was started on Lasix 40 mg IV push every 8 hours, monitor input and output and daily weight, continue spironolactone 25 mg orally once every day, metoprolol 37.5 mg orally twice every day, Pulmicort 1 mg twice daily, DuoNeb treatments every 4 hours, singular 10 mg at bedtime, prednisone 50 mg daily cardiology consultation and pulmonary consultation appreciated. 2. COPD/moderate persistent asthma exacerbation with chronic hypoxemic respiratory failure continue oxygen support continue DuoNeb 3 mg nebulization 4 times every day, Pulmicort 1 mg twice daily. 3. Paroxysmal atrial fibrillation/ Flutter. Continue patient on metoprolol 37.5 mg orally twice every day, on Xarelto 15 mg orally once every day 4. Hypertension and hypertensive cardiovascular disease. Continue patient on metoprolol 37.5 mg orally twice every day, monitor the patient blood pressure very closely. 5. Hyperlipidemia. Continue patient on atorvastatin 20 mg orally once every day, monitor lipid panel, keep LDL 55-70. 6. Enlarged prostate. Continue patient on tamsulosin 0.4 mg orally once every day. Patient has Lynn catheter. 7. Anxiety disorder. Continue patient on sertraline 100 mg orally once every day. 8. Neuropathy. Continue patient on gabapentin 300 mg at bedtime. 9. DVT prophylaxis. Continue Xarelto 15 mg po daily 10. GI prophylaxis. Continue patient on Protonix 40 mg orally once every day. 11. social worker assistant consult. Impression and plan of care have been directed as dictated by the signing physician. Concepción Perkins nurse practitioner acting as scribe for signing physician. Objective - Vital Signs Vital signs: Vital Signs Temp 98 F 09/09/23 01:40 Pulse 108 H 09/09/23 01:40 Resp 16 09/08/23 17:00 BP 108/62 09/09/23 01:40 Pulse Ox 100 09/09/23 01:40 FiO2 30 09/09/23 04:20 Intake & Output 09/08/23 09/09/23 09/09/23 18:59 06:59 18:59 Output Total 3000 800 Balance -3000 -800 Weight 136 kg Output: Urine 3000 800 Other: Voiding Method Indwelling Catheter - Labs CBC & Chem 7: 09/07/23 16:40 09/09/23 07:46 Labs: Abnormal Lab Results - Last 24 Hours (Table) 09/08/23 Range/Units 09:57 Procalcitonin 0.11 H (0.02-0.09) ng/mL
[2023-09-09] MEDS: CYANOCOBALAMIN 500 MCG TAB PO SCH (09:27)
[2023-09-09] MEDS: allopurinoL 100 MG TAB PO SCH (09:27)
[2023-09-09] MEDS: CHOLECALCIFEROL 25 MCG (1000 IU) TABLET PO SCH (09:28)
[2023-09-09] MEDS: SPIRONOLACTONE 25 MG TAB PO SCH (09:28)
[2023-09-09] MEDS: METOPROLOL TARTRATE 25 MG TAB PO SCH ×2 (09:28→22:39)
[2023-09-09] MEDS: TAMSULOSIN 0.4 MG CAP.ER.24H PO SCH (09:28)
[2023-09-09] MEDS: predniSONE 50 MG TAB PO SCH (09:29)
[2023-09-09] MEDS: BUDESONIDE 1 MG/2 ML NEBU INHALATION SCH ×2 (09:40→20:37)
[2023-09-09] MEDS: IPRATROPIUM-ALBUTEROL 3 ML NEB INHALATION SCH ×4 (09:41→20:37)
--- NOTE | 2023-09-09 09:56 | P.PN ---
Subjective HISTORY OF PRESENT ILLNESS: This is a 73-year-old male with a past medical history significant for minimal coronary artery disease, congestive heart failure, hypertension, hyperlipidemia, COPD, paroxysmal atrial fibrillation, obstructive sleep apnea, and chronic hypoxic respiratory failure. Patient follows in the office with Dr. Ngo. We have been asked to see the patient in consultation for CHF. Patient examined at the bedside in the emergency room. Patient was brought to the hospital from his retirement for shortness of breath. Patient was initially on BiPAP however he is on nasal cannula time of examination. He does report shortness of breath. He denies chest pain or pressure. He was started on IV Lasix 40 mg every 8 hours by pulmonary service. * EKG reveals sinus mechanism with no signs of acute ischemia * Chest xray marked acute cardiopulmonary disease most consistent with CHF * Current home cardiac medications include Aldactone 12.5 mg daily, Lipitor 20 mg at night, metoprolol tartrate 37.5 mg twice a day, Demadex 40 mg daily, Xarelto 15 mg at night * Most recent echocardiogram obtained in August 2020 through ejection fraction 50-55% * Cardiac catheterization history: October 2016 revealing minimal coronary artery disease 09/09/2023 Patient examined this morning at the bedside. Patient denies chest pain or pressure. He denies shortness of breath. He remains on IV Lasix 40 mg every 8 hours. BUN 75 today. Creatinine 1.11. Vital signs are stable. PHYSICAL EXAM: VITAL SIGNS: Reviewed. GENERAL: Well-developed in no acute distress. HEENT: Head is normocephalic. Pupils are equal, round. Sclerae anicteric. Mucous membranes of the mouth are moist. Neck supple. No JVD or thyromegaly LUNGS: Respirations even and unlabored. Lungs diminished bilaterally HEART: Regular rate and rhythm. S1 and S2 heard. ABDOMEN: Soft. Nondistended. Nontender. EXTREMITIES: Normal range of motion. No clubbing or cyanosis. Peripheral pulses intact. 2+ bilateral lower extremity edema NEUROLOGIC: Awake and alert. Oriented x 3. ASSESSMENT: Shortness of breath Acute on chronic heart failure with preserved ejection fraction Acute on chronic hypoxic respiratory failure COPD Obstructive sleep apnea Paroxysmal atrial fibrillation Valvular heart disease Hypertension Hyperlipidemia PLAN: Continue current cardiac medications Decrease IV Lasix to 40 mg every 12 hours Daily weights, accurate I&O, and monitor kidney function Further recommendations pending patient's course Nurse practitioner note has been reviewed by physician. Signing provider agrees with the documented findings, assessment, and plan of care. Objective - Vital Signs Vital signs: Vital Signs Temp 97.8 F 09/09/23 08:00 Pulse 53 L 09/09/23 08:00 Resp 16 09/08/23 17:00 BP 117/78 09/09/23 08:00 Pulse Ox 94 L 09/09/23 09:41 FiO2 30 09/09/23 04:20 Intake & Output 09/08/23 09/09/23 09/09/23 18:59 06:59 18:59 Output Total 3000 800 Balance -3000 -800 Weight 136 kg Output: Urine 3000 800 Other: Voiding Method Indwelling Catheter - Labs CBC & Chem 7: 09/07/23 16:40 09/09/23 07:46 Labs: Abnormal Lab Results - Last 24 Hours (Table) 09/08/23 09/09/23 Range/Units 09:57 07:46 Chloride 96 L (98-107) mmol/L Carbon Dioxide 39 H (22-30) mmol/L BUN 75 H (9-20) mg/dL Procalcitonin 0.11 H (0.02-0.09) ng/mL
[2023-09-09] MEDS: AMMONIUM LACTATE 12% LOTION 225 GM BTL TOPICAL SCH ×2 (10:22→23:27)
--- NOTE | 2023-09-09 11:16 | XR ---
EXAMINATION TYPE: XR chest 1V portable DATE OF EXAM: 09/09/2023 11:10 AM COMPARISON: Chest radiographs from 09/07/2023 TECHNIQUE: XR chest 1V portable Portable AP radiograph of the chest. CLINICAL INDICATION:Male, 73 years old with history of CHF; FINDINGS: Patient is rotated which limits evaluation. Lungs/Pleura: Small bilateral pleural effusions with left greater than right. No pneumothorax. Pulmonary vascularity: Pulmonary vascular congestion. Heart/mediastinum: Cardiomediastinal silhouette is enlarged and stable. Musculoskeletal: No acute osseous pathology. Degenerative changes of the thoracic spine. IMPRESSION: Similar findings of CHF exacerbation with cardiomegaly, small bilateral pleural effusions, and pulmon germaine vascular congestion.
--- NOTE | 2023-09-09 13:49 | P.PN ---
Subjective Progress Note Date: 09/09/23 The patient is seen today 09/08/2023 in consultation in the emergency department. He was just discharged to an ECF on 09/05/2023 and returned to the hospital on 09/07/2023 He is seen again for acute hypoxemic and hypercapnic respiratory failure requiring BiPAP. He is a 73-year-old male who is morbidly o bese and debilitated, he has past medical history of asthma, obstructive sleep apnea with CPAP, chronic oxygen dependence, hyperlipidemia, hypertension, congestive heart failure, paroxysmal atrial fibrillation, and his remote ex- smoker over 30 years ago. Chest x-ray on arrival was consistent with pulmonary edema. Recent echocardiogram shows a preserved left ventricular ejection fraction of 50-55%. Exam was otherwise limited. He is currently on BiPAP 12/5 and 30% FiO2. He is continued on DuoNeb inhalations, Pulmicort and Perforomist inhalations, prednisone taper. Lasix 40 mg IV every 12 hours. Continued on Omnicef from recent admission. Anticoagulated with Xarelto. White count 8.7. Hemoglobin 9.3. Platelets 297. Sodium 141. Potassium 4.2. Bicarb 40. BUN 89. Creatinine 1.44. Glucose 125. Troponin negative times one. ProBNP 4260. The patient is seen today 09/09/2023 in follow-up on the regular medical floor. He is currently sitting up in bed. Awake and alert in no acute distress. Maintaining O2 saturations in the 90s on 3 L/m per nasal cannula. He did utilize BiPAP last night 12/ and 30% FiO2. He continues to diurese well. Remains on Lasix 40 mg IV every 12 hours. Currently in a -3.8 L balance. Sodium 140. Potassium 3.9. Bicarb 39. BUN 75. Creatinine 1.11. Pro-calcitonin 0.11. Continued on Omnicef. Continued on DuoNeb inhalations, Pulmicort inhalations, prednisone taper. Anticoagulation with Xarelto. Objective - Vital Signs Vital signs: Vital Signs Temp 97.8 F 09/09/23 08:00 Pulse 53 L 09/09/23 13:33 Resp 16 09/08/23 17:00 BP 117/78 09/09/23 08:00 Pulse Ox 94 L 09/09/23 09:41 FiO2 30 09/09/23 04:20 Intake & Output 09/08/23 09/09/23 09/09/23 18:59 06:59 18:59 Output Total 3000 800 725 Balance -3000 -800 -725 Weight 136 kg Output: Urine 3000 800 725 Other: Voiding Method Indwelling Catheter Indwelling Catheter # Bowel Movements 1 - Exam GENERAL EXAM: Alert, morbidly obese 73-year-old male on 3 L nasal cannula, comfortable in no apparent distress. HEAD: Normocephalic. EYES: Normal reaction of pupils, equal size. NOSE: Clear with pink turbinates. THROAT: No erythema or exudates. NECK: No masses, no JVD. CHEST: No chest wall deformity. LUNGS: Equal air entry with bibasilar crackles, diminished. CVS: S1 and S2 normal with no audible murmur, regular rhythm. ABDOMEN: Obese. Normal bowel sounds, no guarding or rigidity. SPINE: No scoliosis or deformity SKIN: No rashes, Toribio wraps to lower extremities CENTRAL NERVOUS SYSTEM: No focal deficits, tone is normal in all 4 extremities. EXTREMITIES: TORIBIO wraps to the lower extremities. Changes of chronic venous stasis. There is 2+ peripheral edema. Peripheral pulses are intact. - Labs CBC & Chem 7: 09/07/23 16:40 09/09/23 07:46 Labs: Abnormal Lab Results - Last 24 Hours (Table) 09/08/23 09/09/23 Range/Units 09:57 07:46 Chloride 96 L (98-107) mmol/L Carbon Dioxide 39 H (22-30) mmol/L BUN 75 H (9-20) mg/dL Procalcitonin 0.11 H (0.02-0.09) ng/mL Assessment and Plan Assessment: Acute exacerbation of diastolic CHF, with significant cardiomegaly, pulmonary vascular congestion, and small effusions. Echocardiogram from 08/25/23 showed ejection fraction of left ventricle in the order of 50-55%, and otherwise was a limited exam. Influenza screen, RSV screen, COVID-19 screen all negative. Pro calcitonin 0.11. Remains on Omnicef. Remains on IV diuretics. Chest x-ray today 09/09/2023 reveals cardiomegaly with bilateral pleural effusions and pulmonary venous congestion. Acute exacerbation of chronic bronchial asthma/COPD, improving and the patient remains on bronchodilators and systemic steroids Acute on chronic hypoxemic and hypercapnic respiratory failure secondary to above, currently alternating with BiPAP and nasal cannula Paroxysmal A. fib maintenance and he is on anticoagulation with Xarelto Acute on chronic kidney disease, patient has a history of chronic kidney disease stage III, creatinine is currently at 1.11 Acute metabolic encephalopathy, improved and the mental status is back to its baseline Anemia of chronic disease Obstructive sleep apnea syndrome, maintained on CPAP Chronic venous stasis and right lower extremity wounds Benign essential hypertension History of hyperlipidemia Morbid obesity, with a BMI of 45.9 kg/m Poor overall functional performance based on the above-mentioned multiple comorbidities, frequent readmissions Resides in extended care facility Plan: The patient was seen and evaluated Chest x-ray, labs and medications reviewed Continues to diurese well, continued on IV diuretics Continue Omnicef, pro-calcitonin 0.11 Titrate the FiO2 as tolerated We will continue to follow I have personally seen and examined the patient, performed the documentation and the assessment and plan as written. Number of minutes spent on the visit: 10.
[2023-09-09] MEDS: RIVAROXABAN 15 MG TAB PO SCH (18:28)
[2023-09-09] MEDS: MONTELUKAST 10 MG TAB PO SCH (22:38)
[2023-09-09] MEDS: GABAPENTIN 300 MG CAP PO SCH (22:38)
[2023-09-09] MEDS: SERTRALINE 100 MG TAB PO SCH (22:38)
[2023-09-09] MEDS: ATORVASTATIN 20 MG TAB PO SCH (22:39)
[2023-09-10] MEDS: BENZONATATE 100 MG CAP PO PRN ×2 (06:19→22:22)
[2023-09-10] MEDS: PANTOPRAZOLE 40 MG TABLET PO SCH (06:19)
[2023-09-10] MEDS: IPRATROPIUM-ALBUTEROL 3 ML NEB INHALATION SCH ×4 (08:19→18:15)
[2023-09-10] MEDS: BUDESONIDE 1 MG/2 ML NEBU INHALATION SCH ×2 (08:20→18:15)
[2023-09-10] MEDS: allopurinoL 100 MG TAB PO SCH (09:29)
[2023-09-10] MEDS: SPIRONOLACTONE 25 MG TAB PO SCH (09:29)
[2023-09-10] MEDS: FUROSEMIDE 10 MG/ML 4 ML VIAL IV SCH ×2 (09:29→21:30)
[2023-09-10] MEDS: CHOLECALCIFEROL 25 MCG (1000 IU) TABLET PO SCH (09:29)
[2023-09-10] MEDS: AMMONIUM LACTATE 12% LOTION 225 GM BTL TOPICAL SCH ×2 (09:30→22:40)
[2023-09-10] MEDS: predniSONE 50 MG TAB PO SCH (09:30)
[2023-09-10] MEDS: CYANOCOBALAMIN 500 MCG TAB PO SCH (09:30)
[2023-09-10] MEDS: METOPROLOL TARTRATE 25 MG TAB PO SCH ×2 (09:30→21:29)
[2023-09-10] MEDS: CEFDINIR 300 MG CAP PO SCH ×2 (09:30→21:29)
[2023-09-10] MEDS: TAMSULOSIN 0.4 MG CAP.ER.24H PO SCH (09:31)
--- NOTE | 2023-09-10 10:04 | P.PN ---
Subjective HISTORY OF PRESENT ILLNESS: This is a 73-year-old male with a past medical history significant for minimal coronary artery disease, congestive heart failure, hypertension, hyperlipidemia, COPD, paroxysmal atrial fibrillation, obstructive sleep apnea, and chronic hypoxic respiratory failure. Patient follows in the office with Dr. Ngo. We have been asked to see the patient in consultation for CHF. Patient examined at the bedside in the emergency room. Patient was brought to the hospital from his correction for shortness of breath. Patient was initially on BiPAP however he is on nasal cannula time of examination. He does report shortness of breath. He denies chest pain or pressure. He was started on IV Lasix 40 mg every 8 hours by pulmonary service. * EKG reveals sinus mechanism with no signs of acute ischemia * Chest xray marked acute cardiopulmonary disease most consistent with CHF * Current home cardiac medications include Aldactone 12.5 mg daily, Lipitor 20 mg at night, metoprolol tartrate 37.5 mg twice a day, Demadex 40 mg daily, Xarelto 15 mg at night * Most recent echocardiogram obtained in August 2020 through ejection fraction 50-55% * Cardiac catheterization history: October 2016 revealing minimal coronary artery disease 09/09/2023 Patient examined this morning at the bedside. Patient denies chest pain or pressure. He denies shortness of breath. He remains on IV Lasix 40 mg every 8 hours. BUN 75 today. Creatinine 1.11. Vital signs are stable. 09/10/2023 Patient examined this morning at the bedside. Patient denies chest pain or pressure. He reports improvement in his shortness of breath. He remains on Lasix 40 mg every 12 hours. Kidney function this morning is currently pending. PHYSICAL EXAM: VITAL SIGNS: Reviewed. GENERAL: Well-developed in no acute distress. HEENT: Head is normocephalic. Pupils are equal, round. Sclerae anicteric. Mucous membranes of the mouth are moist. Neck supple. No JVD or thyromegaly LUNGS: Respirations even and unlabored. Lungs diminished bilaterally HEART: Regular rate and rhythm. S1 and S2 heard. ABDOMEN: Soft. Nondistended. Nontender. EXTREMITIES: Normal range of motion. No clubbing or cyanosis. Peripheral pulses intact. 2+ bilateral lower extremity edema NEUROLOGIC: Awake and alert. Oriented x 3. ASSESSMENT: Shortness of breath Acute on chronic heart failure with preserved ejection fraction Acute on chronic hypoxic respiratory failure COPD Obstructive sleep apnea Paroxysmal atrial fibrillation Valvular heart disease Hypertension Hyperlipidemia PLAN: Continue current cardiac medications Continue IV Lasix to 40 mg every 12 hours. Await kidney function from this morning. Recommend another 24 hours of IV diuresis and then transition to Demadex at a higher dose than he was taking outpatient Daily weights, accurate I&O, and monitor kidney function Further recommendations pending patient's course Nurse practitioner note has been reviewed by physician. Signing provider agrees with the documented findings, assessment, and plan of care. Objective - Vital Signs Vital signs: Vital Signs Temp 98.7 F 09/10/23 07:17 Pulse 64 09/10/23 08:36 Resp 17 09/10/23 07:17 BP 103/56 09/10/23 07:17 Pulse Ox 96 09/10/23 08:22 FiO2 30 09/10/23 03:59 Intake & Output 09/09/23 09/10/23 09/10/23 18:59 06:59 18:59 Output Total 725 2420 Balance -725 -2420 Weight 132.5 kg Output: Urine 725 2420 Other: Voiding Method Indwelling Catheter Indwelling Catheter # Bowel Movements 1 1 - Labs CBC & Chem 7: 09/07/23 16:40 09/09/23 07:46
[2023-09-10 11:07] LABS: HCT 28.6 % (39.6-50.0); HGB 8.1 d/dL (13.0-17.0); MCH 25.9 pg (27.0-32.0); MCHC 28.3 d/dL (32.0-37.0); MCV 91.4 FL (80.0-97.0); Mean Platelet Volume 9.4 FL (9.5-12.2); NRBC Per 100 WBC 0 X 10*3/uL (0.00-0.01); Platelet Count 269 X 10*3/uL (140-440); RBC 3.13 X 10*6/uL (4.40-5.60); RDW 19.6 % (11.5-14.5); WBC 9.84 X 10*3/uL (4.50-10.00)
[2023-09-10 11:21] LABS: ALT 41 U/L (10-49); AST 33 U/L (14-35); Albumin 3.5 d/dL (3.8-4.9); Alkaline Phosphatase 213 U/L (41-126); BUN/Creat Ratio 41.71 Ratio (12.00-20.00); Blood Urea Nitrogen 58.4 mg/dL (9.0-27.0); Calcium 8.9 mg/dL (8.7-10.3); Carbon Dioxide 35.5 mmol/L (21.6-31.8); Chloride 97 mmol/L (96-109); Globulin 2.5 d/dL (1.6-3.3); Glucose 116 mg/dL (70-110); Potassium 4.3 mmol/L (3.5-5.5); Sodium 143 mmol/L (135-145); Total Bilirubin 0.6 mg/dL (0.3-1.2)
--- NOTE | 2023-09-10 14:02 | P.PN ---
Subjective Progress Note Date: 09/10/23 The patient is seen today 09/08/2023 in consultation in the emergency department. He was just discharged to an ECF on 09/05/2023 and returned to the hospital on 09/07/2023 He is seen again for acute hypoxemic and hypercapnic respiratory failure requiring BiPAP. He is a 73-year-old male who is morbidly o bese and debilitated, he has past medical history of asthma, obstructive sleep apnea with CPAP, chronic oxygen dependence, hyperlipidemia, hypertension, congestive heart failure, paroxysmal atrial fibrillation, and his remote ex- smoker over 30 years ago. Chest x-ray on arrival was consistent with pulmonary edema. Recent echocardiogram shows a preserved left ventricular ejection fraction of 50-55%. Exam was otherwise limited. He is currently on BiPAP 12/5 and 30% FiO2. He is continued on DuoNeb inhalations, Pulmicort and Perforomist inhalations, prednisone taper. Lasix 40 mg IV every 12 hours. Continued on Omnicef from recent admission. Anticoagulated with Xarelto. White count 8.7. Hemoglobin 9.3. Platelets 297. Sodium 141. Potassium 4.2. Bicarb 40. BUN 89. Creatinine 1.44. Glucose 125. Troponin negative times one. ProBNP 4260. The patient is seen today 09/09/2023 in follow-up on the regular medical floor. He is currently sitting up in bed. Awake and alert in no acute distress. Maintaining O2 saturations in the 90s on 3 L/m per nasal cannula. He did utilize BiPAP last night 12/6 and 30% FiO2. He continues to diurese well. Remains on Lasix 40 mg IV every 12 hours. Currently in a -3.8 L balance. Sodium 140. Potassium 3.9. Bicarb 39. BUN 75. Creatinine 1.11. Pro-calcitonin 0.11. Continued on Omnicef. Continued on DuoNeb inhalations, Pulmicort inhalations, prednisone taper. Anticoagulation with Xarelto. The patient is seen today 09/10/2023 in follow-up on the regular medical floor. He is currently sitting up in a chair at the bedside. Awake and alert in no acute distress. Family maintaining good O2 saturations in the 90s on 4 L/m per nasal cannula. Afebrile. Hemodynamically stable. He is utilizing BiPAP 12/5 and 30% FiO2 in the evenings. He continues to diurese well. Currently in a - 3.1 L balance. White count 9.8. Hemoglobin 8.1. Platelets 269. Sodium 143. Potassium 4.3. Bicarb 36. BUN 58. Creatinine 1.4. Glucose 116. He remains on Aldactone and Lasix 40 mg IV every 12 hours. Continued on bronchodilators. Antibiotics in the form of Omnicef. Anticoagulated with Xarelto. Objective - Vital Signs Vital signs: Vital Signs Temp 98.0 F 09/10/23 13:46 Pulse 67 09/10/23 13:46 Resp 19 09/10/23 13:46 BP 121/67 09/10/23 13:46 Pulse Ox 94 L 09/10/23 13:46 FiO2 30 09/10/23 03:59 Intake & Output 09/09/23 09/10/23 09/10/23 18:59 06:59 18:59 Output Total 725 2420 Balance -725 -2420 Weight 132.5 kg Output: Urine 725 2420 Other: Voiding Method Indwelling Catheter Indwelling Catheter Indwelling Catheter # Bowel Movements 1 1 - Exam GENERAL EXAM: Alert, morbidly obese 73-year-old male up in a chair, on 4 L nasal cannula, comfortable in no apparent distress. HEAD: Normocephalic. EYES: Normal reaction of pupils, equal size. NOSE: Clear with pink turbinates. THROAT: No erythema or exudates. NECK: No masses, no JVD. CHEST: No chest wall deformity. LUNGS: Equal air entry with bibasilar crackles, diminished. CVS: S1 and S2 normal with no audible murmur, regular rhythm. ABDOMEN: Obese. Normal bowel sounds, no guarding or rigidity. SPINE: No scoliosis or deformity SKIN: No rashes, Toribio wraps to lower extremities CENTRAL NERVOUS SYSTEM: No focal deficits, tone is normal in all 4 extremities. EXTREMITIES: TORIBIO wraps to the lower extremities. Changes of chronic venous stasis. There is 2+ peripheral edema. Peripheral pulses are intact. - Labs CBC & Chem 7: 09/10/23 07:58 09/10/23 07:58 Labs: Abnormal Lab Results - Last 24 Hours (Table) 09/10/23 09/10/23 Range/Units 07:58 07:58 RBC 3.13 L (4.40-5.60) X 10*6/uL Hgb 8.1 L (13.0-17.0) d/dL Hct 28.6 L (39.6-50.0) % MCH 25.9 L (27.0-32.0) pg MCHC 28.3 L (32.0-37.0) d/dL RDW 19.6 H (11.5-14.5) % MPV 9.4 L (9.5-12.2) FL Carbon Dioxide 35.5 H (21.6-31.8) mmol/L BUN 58.4 H (9.0-27.0) mg/dL Est GFR (CKD-EPI) 53 L (>=60) BUN/Creatinine Ratio 41.71 H (12.00-20.00) Ratio Glucose 116 H (70-110) mg/dL Alkaline Phosphatase 213 H (41-126) U/L Total Protein 6.0 L (6.2-8.2) d/dL Albumin 3.5 L (3.8-4.9) d/dL Albumin/Globulin Ratio 1.40 L (1.60-3.17) Ratio Assessment and Plan Assessment: Acute exacerbation of diastolic CHF, with significant cardiomegaly, pulmonary vascular congestion, and small effusions. Echocardiogram from 08/25/23 showed ejection fraction of left ventricle in the order of 50-55%, and otherwise was a limited exam. Influenza screen, RSV screen, COVID-19 screen all negative. Pro calcitonin 0.11. Remains on Omnicef. Remains on IV diuretics. Chest x-ray 09/09/2023 reveals cardiomegaly with bilateral pleural effusions and pulmonary venous congestion. Acute exacerbation of chronic bronchial asthma/COPD, improving and the patient remains on bronchodilators and systemic steroids Acute on chronic hypoxemic and hypercapnic respiratory failure secondary to above, currently alternating with BiPAP and nasal cannula Paroxysmal A. fib maintenance and he is on anticoagulation with Xarelto Acute on chronic kidney disease, patient has a history of chronic kidney disease stage III, creatinine is currently at 1.4 Acute metabolic encephalopathy, improved and the mental status is back to its baseline Anemia of chronic disease Obstructive sleep apnea syndrome, maintained on CPAP Chronic venous stasis and right lower extremity wounds Benign essential hypertension History of hyperlipidemia Morbid obesity, with a BMI of 45.9 kg/m Poor overall functional performance based on the above-mentioned multiple comorbidities, frequent readmissions Resides in extended care facility Plan: The patient was seen and evaluated Labs and medications reviewed Continues on IV diuretics Titrate the FiO2 as tolerated We will continue to follow I have personally seen and examined the patient, performed the documentation and the assessment and plan as written. Number of minutes spent on the visit: 10.
--- NOTE | 2023-09-10 15:34 | P.PN ---
Subjective Progress Note Date: 09/10/23 HISTORY OF PRESENT ILLNESS: This is a 73-year-old male with a previous medical history significant for hypertension and hypertensive cardiovascular disease, hyperlipidemia, obesity with obstructive sleep apnea and obesity hypoventilation syndrome, chronic diastolic heart failure, asthma, hypothyroidism, anxiety and depressive disorder, peripheral neuropathy. Patient has had multiple hospitalizations for acute on chronic diastolic heart failure and acute exacerbation of COPD. Patient has had multiple hospitalizations for acute on chronic diastolic heart failure, pulmonary edema, acute exacerbation of COPD and acute on chronic respiratory failure. He most recently was discharged to [facility] on 09/05 is stable condition. He had an extended hospitalization and was also worked up for acute kidney injury, thrombocytopenia, anemia with concern for MDS seen by oncology thought to be due to acute reactivity. Patient apparently was found to have a pulse ox in the mid 80s. He is normally on 4 L nasal cannula. He was transferred to [facility] for further evaluation and treatment. He was placed on a BiPAP and is seen this morning on 2 L nasal cannula. Patient denies any worsening shortness of breath at the time of the valve. No chest pain. WBC 8.7, hemoglobin 9.3 and platelet count 297. BUN 89 and creatinine 1.44. Troponin was negative. Patient was started on his home medications and IV Lasix 40 mg every [address] with probably me talbot and cardiology. Patient is seen today in the emergency center waiting for a bed on the [facility] floor. 09/09: [facility] Heart rate has been running between 59-108, blood pressure 108/62, pulse ox is 100% on BiPAP.. Pro- calcitonin came back high at 0.11. Patient is maintained on Lasix 40 mg IV every 8 hours and he has diuresed well. It appears that I&O and weights are not accurate. Plan to continue IV Lasix for another day and most likely discharged tomorrow back to [facility]. 09/10: Patient is feeling much better today. His mood is improved. He has been on Lasix 40 mg IV every 12 hours. His been followed by cardiology and pulmonary medicine. He has been maintained on bronchodilators and antibiotics with Omnicef. Blood pressure 121/67, heart rate in the 60s. P blood work reveals BUN 58, creatinine 1.4. Hemoglobin 8.1. Discharge plan is return to [facility]. Anticipate discharge tomorrow. REVIEW OF SYSTEMS: Constitutional: No documented fever, no chills, no night sweats. No weight change. No weakness, fatigue or lethargy. No daytime sleepiness. HEENT: No headache. No blurred vision or double vision, no loss of vision. No loss of Hearing, no ringing in the ears, no dizziness. No nasal drainage or congestion. No epistaxis. No sore throat. Lungs: positive for shortness of breath, occasional cough, minimal sputum production. No wheezing. Reports dyspnea with activity. Cardiovascular: positive for chest pain, positive for lower extremity edema. No palpitations. No paroxysmal nocturnal dyspnea. No orthopnea. No lightheadedness or dizziness. No syncopal episodes. Abdominal: Reports abdominal pain. No nausea, vomiting. No diarrhea. No constipation. No bloody or tarry stools reports loss of appetite. Genitourinary: No dysuria, increased frequency, urgency. No urinary retention. Musculoskeletal: No myalgias. positive for muscle weakness, positive for gait dysfunction, positive for frequent falls. positive for back pain. No neck pain, bilateral hip pain Integumentary: No wounds, no lesions. No rash or pruritus. No unusual bruising. No change in hair or nails. Neurologic: No aphasia. No facial droop. No change in mentation. No head injury. No headache. No paralysis. No paresthesia. Psychiatric: No depression. No anxiety. No mood swings. Endocrine: No abnormal blood sugars. No weight change. PHYSICAL EXAMINATION: General: 72-year-old male lying down in bed in no respiratory distress HEENT: Head is atraumatic, normocephalic, pupils were equal round reactive to light and recommendation, extraocular muscle movement were intact, sclera nonicteric, conjunctivae were pale, mucous membranes of the mouth are somewhat dry. Neck: Supple, no JVP, normal carotid upstroke bilaterally, no lymphadenopathy. Chest: Decreased breath sounds at the bases, few rhonchi, no expiratory wheezes, no chest wall tenderness, no intercostal retractions. Heart: First heart sound is normal, second heart sound is normal, there is systolic ejection murmur 2/6 located in the left sternal border. Abdomen: Soft, nontender, nondistended, positive bowel sounds, obese. Extremities: There is +1 edema no calf tenderness DP +2 bilaterally, there is bilateral scabbed lesions in both shins free Neurologic examination: Patient is awake alert and oriented X 3, cranial nerves II-12 appear grossly intact, muscle power were 5 out of 5 in upper extremities and 3/5 in bilateral lower extremities ASSESSMENT AND PLAN: 1. Acute hypoxemic respiratory failure due to acute on chronic diastolic heart failure and acute exacerbation of COPD wit RAMYA and OHS. patient was started on Lasix 40 mg IV push every 12 hours, monitor input and output and daily weight, continue spironolactone 25 mg orally once every day, metoprolol 37.5 mg orally twice every day, Pulmicort 1 mg twice daily, DuoNeb treatments every 4 hours, singular 10 mg at bedtime, prednisone 50 mg daily cardiology consultation and pulmonary consultation appreciated. 2. COPD/moderate persistent asthma exacerbation with chronic hypoxemic respiratory failure continue oxygen support continue DuoNeb 3 mg nebulization 4 times every day, Pulmicort 1 mg twice daily. 3. Paroxysmal atrial fibrillation/ Flutter. Continue patient on metoprolol 37.5 mg orally twice every day, on Xarelto 15 mg orally once every day 4. Hypertension and hypertensive cardiovascular disease. Continue patient on metoprolol 37.5 mg orally twice every day, monitor the patient blood pressure very closely. 5. Hyperlipidemia. Continue patient on atorvastatin 20 mg orally once every day, monitor lipid panel, keep LDL 55-70. 6. Enlarged prostate. Continue patient on tamsulosin 0.4 mg orally once every day. Patient has Lynn catheter. 7. Anxiety disorder. Continue patient on sertraline 100 mg orally once every day. 8. Neuropathy. Continue patient on gabapentin 300 mg at bedtime. 9. DVT prophylaxis. Continue Xarelto 15 mg po daily 10. GI prophylaxis. Continue patient on Protonix 40 mg orally once every day. 11. criminal justice social worker consult. Impression and plan of care have been directed as dictated by the signing physician. Concepción Perkins nurse practitioner acting as scribe for signing physician. Objective - Vital Signs Vital signs: Vital Signs Temp 98.0 F 09/10/23 13:46 Pulse 67 09/10/23 13:46 Resp 19 09/10/23 13:46 BP 121/67 09/10/23 13:46 Pulse Ox 94 L 09/10/23 13:46 FiO2 30 09/10/23 03:59 Intake & Output 09/09/23 09/10/23 09/10/23 18:59 06:59 18:59 Output Total 725 2420 Balance -725 -2420 Weight 132.5 kg Output: Urine 725 2420 Other: Voiding Method Indwelling Catheter Indwelling Catheter Indwelling Catheter # Bowel Movements 1 1 - Labs CBC & Chem 7: 09/10/23 07:58 09/10/23 07:58 Labs: Abnormal Lab Results - Last 24 Hours (Table) 09/10/23 09/10/23 Range/Units 07:58 07:58 RBC 3.13 L (4.40-5.60) X 10*6/uL Hgb 8.1 L (13.0-17.0) d/dL Hct 28.6 L (39.6-50.0) % MCH 25.9 L (27.0-32.0) pg MCHC 28.3 L (32.0-37.0) d/dL RDW 19.6 H (11.5-14.5) % MPV 9.4 L (9.5-12.2) FL Carbon Dioxide 35.5 H (21.6-31.8) mmol/L BUN 58.4 H (9.0-27.0) mg/dL Est GFR (CKD-EPI) 53 L (>=60) BUN/Creatinine Ratio 41.71 H (12.00-20.00) Ratio Glucose 116 H (70-110) mg/dL Alkaline Phosphatase 213 H (41-126) U/L Total Protein 6.0 L (6.2-8.2) d/dL Albumin 3.5 L (3.8-4.9) d/dL Albumin/Globulin Ratio 1.40 L (1.60-3.17) Ratio
--- NOTE | 2023-09-10 15:40 | P.DS ---
Providers Date of admission: 09/07/23 19:28 Expected date of discharge: 09/11/23 Attending physician: Alison Leon Consults: 09/07/23 19:28 Consult Physician Routine Consulting Provider: Andrez Boone Consult Reason/Comments: EDIE Do you want consulting provider notified?: Yes Consult Physician Routine Consulting Provider: Prince Ngo Consult Reason/Comments: CHF Do you want consulting provider notified?: Yes 09/08/23 07:59 Consult Physician Routine Consulting Provider: Justin Lopez Consult Reason/Comments: chf Do you want consulting provider notified?: Already Contacted Primary care physician: Alison Leon Hospital Course: HISTORY OF PRESENT ILLNESS: This is a 73-year-old male with a previous medical history significant for hypertension and hypertensive cardiovascular disease, hyperlipidemia, obesity with obstructive sleep apnea and obesity hypoventilation syndrome, chronic diastolic heart failure, asthma, hypothyroidism, anxiety and depressive disorder, peripheral neuropathy. Patient has had multiple hospitalizations for acute on chronic diastolic heart failure and acute exacerbation of COPD. Patient has had multiple hospitalizations for acute on chronic diastolic heart failure, pulmonary edema, acute exacerbation of COPD and acute on chronic respiratory failure. He most recently was discharged to [facility] on 09/05 is stable condition. He had an extended hospitalization and was also worked up for acute kidney injury, thrombocytopenia, anemia with concern for MDS seen by oncology thought to be due to acute reactivity. Patient apparently was found to have a pulse ox in the mid 80s. He is normally on 4 L nasal cannula. He was transferred to [facility] emergency center for further evaluation and treatment. He was placed on a BiPAP and is seen this morning on 2 L nasal cannula. Patient denies any worsening shortness of breath at the time of the valve. No chest pain. WBC 8.7, hemoglobin 9.3 and platelet count 297. BUN 89 and creatinine 1.44. Troponin was negative. Patient was started on his home medications and IV Lasix 40 mg every [address] with probably medicine and cardiology. Patient is seen today in the emergency center waiting for a bed on the [facility] floor. 09/09: Patient is seen today on the [facility] floor. Heart rate has been running between 59-108, blood pressure 108/62, pulse ox is 100% on BiPAP.. Pro- calcitonin came back high at 0.11. Patient is maintained on Lasix 40 mg IV every 8 hours and he has diuresed well. It appears that I&O and weights are not accurate. Plan to continue IV Lasix for another day and most likely discharged tomorrow back to [facility]. 09/10: Patient is feeling much better today. His mood is improved. He has been on Lasix 40 mg IV every 12 hours. His been followed by cardiology and pulmonary medicine. He has been maintained on bronchodilators and antibiotics with Omnicef. Blood pressure 121/67, heart rate in the 60s. P blood work reveals BUN 58, creatinine 1.4. Hemoglobin 8.1. Discharge plan is return to [facility]. Anticipate discharge tomorrow. DISCHARGE DIAGNOSES: 1. Acute hypoxemic respiratory failure due to acute on chronic diastolic heart failure and acute exacerbation of COPD wit RAMYA and OHS. 2. COPD/moderate persistent asthma exacerbation with chronic hypoxemic respiratory failure 3. Paroxysmal atrial fibrillation/ Flutter. 4. Hypertension and hypertensive cardiovascular disease. 5. Hyperlipidemia. 6. Enlarged prostate. 7. Anxiety disorder. 8. Neuropathy. DISCHARGE PLAN: [facility] ON FRIDAY Greater than 35 minutes was utilized and coordinating patient's discharge. Impression and plan of care have been directed as dictated by the signing physician. Concepción Perkins nurse practitioner acting as scribe for signing physician. Patient Condition at Discharge: Stable Plan - Discharge Summary Discharge Rx Participant: Yes New Discharge Prescriptions: New Furosemide [Lasix] 80 mg PO DAILY #90 tab Furosemide [Lasix] 40 mg PO DAILY@1600 #90 tablet Spironolactone [Aldactone] 25 mg PO DAILY #90 tablet Continue Sertraline [Zoloft] 100 mg PO HS Atorvastatin [Lipitor] 20 mg PO HS Tamsulosin [Flomax] 0.4 mg PO DAILY Ipratropium-Albuterol Nebulize [Duoneb 0.5 mg-3 mg/3 ml Soln] 3 ml INHALATION RT-Q6H Rivaroxaban [Xarelto] 15 mg PO W/SUPPER #30 tab Omeprazole [PriLOSEC] 20 mg PO DAILY Montelukast [Singulair] 10 mg PO HS Budesonide [Pulmicort] 1 mg INHALATION RT-BID ml Metoprolol Tartrate [Lopressor] 37.5 mg PO BID allopurinoL 200 mg PO DAILY Ammonium Lactate Lotion [Lac-Hydrin 12% Lotion] 1 applic TOPICAL BID Cefuroxime [Ceftin] 250 mg PO BID 7 Days #14 tab Cyanocobalamin [Vitamin B-12] 1,000 mcg PO DAILY tab INSULIN ASPART (NovoLOG) [NovoLOG (formulary)] See Protocol SQ AC-TID predniSONE See Taper PO DIRECTED Gabapentin [Neurontin] 300 mg PO HS #3 cap Acetaminophen Tab [Tylenol] 500 mg PO Q6H PRN PRN Reason: Pain Cholecalciferol [Vitamin D3 (25 Mcg = 1000 Iu)] 50 mcg PO DAILY Benzonatate [Tessalon Perles] 200 mg PO TID PRN cap PRN Reason: Cough Melatonin 10 mg PO HS PRN tab PRN Reason: Insomnia Artificial Tears-Hypromellose [Artificial Tear Drops] 1 drops BOTH EYES TID PRN ml PRN Reason: Dry Eye(S) Nystatin 100,000 Unit/gm Powd [Mycostatin Powder] 1 applic TOPICAL BID #0 each Discontinued Spironolactone [Aldactone] 12.5 mg PO DAILY tab Torsemide [Demadex] 40 mg PO DAILY tab Discharge Medication List Sertraline [Zoloft] 100 mg PO HS 04/04/17 [History] Atorvastatin [Lipitor] 20 mg PO HS 07/14/19 [History] Tamsulosin [Flomax] 0.4 mg PO DAILY 07/14/19 [History] Ipratropium-Albuterol Nebulize [Duoneb 0.5 mg-3 mg/3 ml Soln] 3 ml INHALATION RT-Q6H 08/19/19 [History] Acetaminophen Tab [Tylenol] 500 mg PO Q6H PRN 03/26/23 [History] Cholecalciferol [Vitamin D3 (25 Mcg = 1000 Iu)] 50 mcg PO DAILY 03/26/23 [History] Rivaroxaban [Xarelto] 15 mg PO W/SUPPER #30 tab 06/25/23 [Rx] Benzonatate [Tessalon Perles] 200 mg PO TID PRN cap 07/17/23 [Rx] Montelukast [Singulair] 10 mg PO HS 08/07/23 [History] Omeprazole [PriLOSEC] 20 mg PO DAILY 08/07/23 [History] Budesonide [Pulmicort] 1 mg INHALATION RT-BID ml 08/11/23 [Rx] Melatonin 10 mg PO HS PRN tab 08/11/23 [Rx] Ammonium Lactate Lotion [Lac-Hydrin 12% Lotion] 1 applic TOPICAL BID 08/23/23 [History] Metoprolol Tartrate [Lopressor] 37.5 mg PO BID 08/23/23 [History] allopurinoL 200 mg PO DAILY 08/23/23 [History] Artificial Tears-Hypromellose [Artificial Tear Drops] 1 drops BOTH EYES TID PRN ml 09/04/23 [Rx] Cefuroxime [Ceftin] 250 mg PO BID 7 Days #14 tab 09/04/23 [Rx] Cyanocobalamin [Vitamin B-12] 1,000 mcg PO DAILY tab 09/04/23 [Rx] Nystatin 100,000 Unit/gm Powd [Mycostatin Powder] 1 applic TOPICAL BID #0 each 09/04/23 [Rx] INSULIN ASPART (NovoLOG) [NovoLOG (formulary)] See Protocol SQ AC-TID 09/07/23 [History] predniSONE See Taper PO DIRECTED 09/07/23 [History] Gabapentin [Neurontin] 300 mg PO HS #3 cap 09/10/23 [Rx] Furosemide [Lasix] 40 mg PO DAILY@1600 #90 tablet 09/11/23 [Rx] Furosemide [Lasix] 80 mg PO DAILY #90 tab 09/11/23 [Rx] Spironolactone [Aldactone] 25 mg PO DAILY #90 tablet 09/11/23 [Rx] Follow up Appointment(s)/Referral(s): [facility], [NON-STAFF] - As Needed Alison Leon MD [Primary Care Provider] - 1 Week (AT [facility]) Moncho Lamb MD [STAFF PHYSICIAN] - 1 Week Cody Corral MD [STAFF PHYSICIAN] - 1 Week Discharge Disposition: TRANSFER TO SNF/ECF
[2023-09-10] MEDS: RIVAROXABAN 15 MG TAB PO SCH (18:51)
[2023-09-10] MEDS: SERTRALINE 100 MG TAB PO SCH (21:29)
[2023-09-10] MEDS: GABAPENTIN 300 MG CAP PO SCH (21:29)
[2023-09-10] MEDS: ATORVASTATIN 20 MG TAB PO SCH (21:29)
[2023-09-10] MEDS: MONTELUKAST 10 MG TAB PO SCH (21:29)
[2023-09-10] MEDS: MELATONIN 5 MG TABLET PO PRN (21:37)
[2023-09-11] MEDS: PANTOPRAZOLE 40 MG TABLET PO SCH (06:24)
[2023-09-11] MEDS: FUROSEMIDE 10 MG/ML 4 ML VIAL IV SCH (07:52)
[2023-09-11] MEDS: CHOLECALCIFEROL 25 MCG (1000 IU) TABLET PO SCH (07:53)
[2023-09-11] MEDS: allopurinoL 100 MG TAB PO SCH (07:53)
[2023-09-11] MEDS: SPIRONOLACTONE 25 MG TAB PO SCH (07:53)
[2023-09-11] MEDS: CYANOCOBALAMIN 500 MCG TAB PO SCH (07:53)
[2023-09-11] MEDS: TAMSULOSIN 0.4 MG CAP.ER.24H PO SCH (07:53)
[2023-09-11] MEDS: predniSONE 50 MG TAB PO SCH (07:54)
[2023-09-11] MEDS: AMMONIUM LACTATE 12% LOTION 225 GM BTL TOPICAL SCH (07:54)
[2023-09-11] MEDS: METOPROLOL TARTRATE 25 MG TAB PO SCH (07:54)
[2023-09-11] MEDS: BUDESONIDE 1 MG/2 ML NEBU INHALATION SCH (08:56)
[2023-09-11] MEDS: IPRATROPIUM-ALBUTEROL 3 ML NEB INHALATION SCH ×2 (08:56→11:38)
[2023-09-11 08:59] LABS: Anisocytosis Slight; Basophils % (A) 0 %; Eosinophils # (A) 0.1 k/uL (0-0.7); Eosinophils % (A) 1 %; HCT 29.9 % (39.0-53.0); HGB 8.9 gm/dL (13.0-17.5); Hypochromasia Marked; Lymphocytes # (A) 0.7 k/uL (1.0-4.8); Lymphocytes % (A) 7 %; MCH 27.2 pg (25.0-35.0); MCHC 29.7 g/dL (31.0-37.0); MCV 91.7 fL (80.0-100.0); Mean Platelet Volume 7.4; Monocytes # (A) 0.7 k/uL (0-1.0); Monocytes % (A) 7 %; Neutrophils # (A) 8.1 k/uL (1.3-7.7); Neutrophils % (A) 83 %; Platelet Count 268 k/uL (150-450); RBC 3.26 m/uL (4.30-5.90); RDW 17.7 % (11.5-15.5); WBC 9.8 k/uL (3.8-10.6)
[2023-09-11] MEDS ORDERED: FUROSEMIDE 80 MG TAB PO SCH (09:00)
[2023-09-11] MEDS ORDERED: predniSONE 20 MG TAB PO SCH (09:00)
[2023-09-11 09:10] LABS: ALT 43 U/L (4-49); AST 44 U/L (17-59); African American GFR (CKD) 71 (>60 ml/min/1.73 sqM); Albumin 3.2 g/dL (3.5-5.0); Albumin/Globulin Ratio 1.1; Alkaline Phosphatase 219 U/L (38-126); Anion Gap 8 mmol/L; Blood Urea Nitrogen 54 mg/dL (9-20); Calcium 8.7 mg/dL (8.4-10.2); Carbon Dioxide 35 mmol/L (22-30); Chloride 94 mmol/L (98-107); Globulin 2.9 g/dL; Glucose 130 mg/dL (74-99); Non-African American GFR(CKD) 61 (>60 ml/min/1.73 sqM); Potassium 4.1 mmol/L (3.5-5.1); Sodium 137 mmol/L (137-145); Total Bilirubin 0.8 mg/dL (0.2-1.3); Total Protein 6.1 g/dL (6.3-8.2)
[2023-09-11] MEDS ORDERED: SPIRONOLACTONE 25 MG TAB PO STA (09:18)
[2023-09-11] MEDS: BENZONATATE 100 MG CAP PO PRN (10:23)
--- NOTE | 2023-09-11 11:52 | P.PN ---
Subjective HISTORY OF PRESENT ILLNESS: This is a 73-year-old male with a past medical history significant for minimal coronary artery disease, congestive heart failure, hypertension, hyperlipidemia, COPD, paroxysmal atrial fibrillation, obstructive sleep apnea, and chronic hypoxic respiratory failure. Patient follows in the office with Dr. Ngo. We have been asked to see the patient in consultation for CHF. Patient examined at the bedside in the emergency room. Patient was brought to the hospital from his [facility] for shortness of breath. Patient was initially on BiPAP however he is on nasal cannula time of examination. He does report shortness of breath. He denies chest pain or pressure. He was started on IV Lasix 40 mg every 8 hours by pulmonary service. * EKG reveals sinus mechanism with no signs of acute ischemia * Chest xray marked acute cardiopulmonary disease most consistent with CHF * Current home cardiac medications include Aldactone 12.5 mg daily, Lipitor 20 mg at night, metoprolol tartrate 37.5 mg twice a day, Demadex 40 mg daily, Xarelto 15 mg at night * Most recent echocardiogram obtained in August 2020 through ejection fraction 50-55% * Cardiac catheterization history: October 2016 revealing minimal coronary artery disease 09/09/2023 Patient examined this morning at the bedside. Patient denies chest pain or pressure. He denies shortness of breath. He remains on IV Lasix 40 mg every 8 hours. BUN 75 today. Creatinine 1.11. Vital signs are stable. 09/10/2023 Patient examined this morning at the bedside. Patient denies chest pain or pressure. He reports improvement in his shortness of breath. He remains on Lasix 40 mg every 12 hours. Kidney function this morning is currently pending. 09/11/2023 Patient examined this morning at the bedside. Patient denies chest pain or pressure. He currently denies shortness of breath. He has been transitioned to oral Lasix 80 mg in the morning per internal medicine. PHYSICAL EXAM: VITAL SIGNS: Reviewed. GENERAL: Well-developed in no acute distress. HEENT: Head is normocephalic. Pupils are equal, round. Sclerae anicteric. Mucous membranes of the mouth are moist. Neck supple. No JVD or thyromegaly LUNGS: Respirations even and unlabored. Lungs diminished bilaterally HEART: Regular rate and rhythm. S1 and S2 heard. ABDOMEN: Soft. Nondistended. Nontender. EXTREMITIES: Normal range of motion. No clubbing or cyanosis. Peripheral pulses intact. 2+ bilateral lower extremity edema NEUROLOGIC: Awake and alert. Oriented x 3. ASSESSMENT: Shortness of breath Acute on chronic heart failure with preserved ejection fraction Acute on chronic hypoxic respiratory failure COPD Obstructive sleep apnea Paroxysmal atrial fibrillation Valvular heart disease Hypertension Hyperlipidemia PLAN: Continue current cardiac medications Continue Lasix 80 mg in the morning that was started by internal medicine today. Add Lasix 40 mg daily at 1600 Increase Aldactone to 25 mg daily Stable from a cardiac perspective Further recommendations pending patient's course Nurse practitioner note has been reviewed by physician. Signing provider agrees with the documented findings, assessment, and plan of care. Objective - Vital Signs Vital signs: Vital Signs Temp 98.6 F 09/11/23 07:17 Pulse 65 09/11/23 09:15 Resp 20 09/11/23 07:17 BP 100/51 09/11/23 07:17 Pulse Ox 100 09/11/23 07:17 FiO2 30 09/11/23 03:14 Intake & Output 09/10/23 09/11/23 09/11/23 18:59 06:59 18:59 Output Total 3000 2000 Balance -3000 -2000 Weight 133 kg Output: Urine 3000 2000 Other: Voiding Method Indwelling Catheter Indwelling Catheter Indwelling Catheter # Bowel Movements 1 1 - Labs CBC & Chem 7: 09/11/23 08:43 09/11/23 08:43 Labs: Abnormal Lab Results - Last 24 Hours (Table) 09/11/23 09/11/23 Range/Units 08:43 08:43 RBC 3.26 L (4.30-5.90) m/uL Hgb 8.9 L (13.0-17.5) gm/dL Hct 29.9 L (39.0-53.0) % MCHC 29.7 L (31.0-37.0) g/dL RDW 17.7 H (11.5-15.5) % Neutrophils # 8.1 H (1.3-7.7) k/uL Lymphocytes # 0.7 L (1.0-4.8) k/uL Chloride 94 L (98-107) mmol/L Carbon Dioxide 35 H (22-30) mmol/L BUN 54 H (9-20) mg/dL Glucose 130 H (74-99) mg/dL Alkaline Phosphatase 219 H (38-126) U/L Total Protein 6.1 L (6.3-8.2) g/dL Albumin 3.2 L (3.5-5.0) g/dL
--- NOTE | 2023-09-11 13:23 | P.PN ---
Subjective Progress Note Date: 09/11/23 The patient is seen today 09/08/2023 in consultation in the emergency department. He was just discharged to an ECF on 09/05/2023 and returned to the hospital on 09/07/2023 He is seen again for acute hypoxemic and hypercapnic respiratory failure requiring BiPAP. He is a 73-year-old male who is morbidly o bese and debilitated, he has past medical history of asthma, obstructive sleep apnea with CPAP, chronic oxygen dependence, hyperlipidemia, hypertension, congestive heart failure, paroxysmal atrial fibrillation, and his remote ex- smoker over 30 years ago. Chest x-ray on arrival was consistent with pulmonary edema. Recent echocardiogram shows a preserved left ventricular ejection fraction of 50-55%. Exam was otherwise limited. He is currently on BiPAP 12/5 and 30% FiO2. He is continued on DuoNeb inhalations, Pulmicort and Perforomist inhalations, prednisone taper. Lasix 40 mg IV every 12 hours. Continued on Omnicef from recent admission. Anticoagulated with Xarelto. White count 8.7. Hemoglobin 9.3. Platelets 297. Sodium 141. Potassium 4.2. Bicarb 40. BUN 89. Creatinine 1.44. Glucose 125. Troponin negative times one. ProBNP 4260. The patient is seen today 09/09/2023 in follow-up on the regular medical floor. He is currently sitting up in bed. Awake and alert in no acute distress. Maintaining O2 saturations in the 90s on 3 L/m per nasal cannula. He did utilize BiPAP last night 12/ and 30% FiO2. He continues to diurese well. Remains on Lasix 40 mg IV every 12 hours. Currently in a -3.8 L balance. Sodium 140. Potassium 3.9. Bicarb 39. BUN 75. Creatinine 1.11. Pro-calcitonin 0.11. Continued on Omnicef. Continued on DuoNeb inhalations, Pulmicort inhalations, prednisone taper. Anticoagulation with Xarelto. The patient is seen today 09/10/2023 in follow-up on the regular medical floor. He is currently sitting up in a chair at the bedside. Awake and alert in no acute distress. Family maintaining good O2 saturations in the 90s on 4 L/m per nasal cannula. Afebrile. Hemodynamically stable. He is utilizing BiPAP 12/5 and 30% FiO2 in the evenings. He continues to diurese well. Currently in a - 3.1 L balance. White count 9.8. Hemoglobin 8.1. Platelets 269. Sodium 143. Potassium 4.3. Bicarb 36. BUN 58. Creatinine 1.4. Glucose 116. He remains on Aldactone and Lasix 40 mg IV every 12 hours. Continued on bronchodilators. Antibiotics in the form of Omnicef. Anticoagulated with Xarelto. The patient is seen today 09/11/2023 in follow-up on the regular medical floor. He is currently sitting up in chair at the bedside. Awake and alert in no acute distress. Maintaining O2 saturations up to 100% on 4 L/m per nasal cannula. A febrile. Hemodynamically stable. White count 9.8. Hemoglobin 8.9. Platelets 268. Sodium 137. Potassium 4.1. Bicarb 35. BUN 54. Creatinine 1.17. Glucose 130. Continued on bronchodilators, prednisone taper, Omnicef. Anticoagulated with Eliquis. Remains on diuretics. Current output at -5 L. Objective - Vital Signs Vital signs: Vital Signs Temp 98.6 F 09/11/23 07:17 Pulse 65 09/11/23 09:15 Resp 20 09/11/23 07:17 BP 100/51 09/11/23 07:17 Pulse Ox 100 09/11/23 07:17 FiO2 30 09/11/23 03:14 Intake & Output 09/10/23 09/11/23 09/11/23 18:59 06:59 18:59 Output Total 3000 2000 Balance -3000 -2000 Weight 133 kg Output: Urine 3000 2000 Other: Voiding Method Indwelling Catheter Indwelling Catheter Indwelling Catheter # Bowel Movements 1 1 - Exam GENERAL EXAM: Alert, morbidly obese 73-year-old male, on 4 L nasal cannula, comfortable in no apparent distress. HEAD: Normocephalic. EYES: Normal reaction of pupils, equal size. NOSE: Clear with pink turbinates. THROAT: No erythema or exudates. NECK: No masses, no JVD. CHEST: No chest wall deformity. LUNGS: Equal air entry with bibasilar crackles, diminished. CVS: S1 and S2 normal with no audible murmur, regular rhythm. ABDOMEN: Obese. Normal bowel sounds, no guarding or rigidity. SPINE: No scoliosis or deformity SKIN: No rashes, Toribio wraps to lower extremities CENTRAL NERVOUS SYSTEM: No focal deficits, tone is normal in all 4 extremities. EXTREMITIES: TORIBIO wraps to the lower extremities. Changes of chronic venous stasis. There is 2+ peripheral edema. Peripheral pulses are intact. - Labs CBC & Chem 7: 09/11/23 08:43 10 08:43 Labs: Abnormal Lab Results - Last 24 Hours (Table) 09/11/23 09/11/23 Range/Units 08:43 08:43 RBC 3.26 L (4.30-5.90) m/uL Hgb 8.9 L (13.0-17.5) gm/dL Hct 29.9 L (39.0-53.0) % MCHC 29.7 L (31.0-37.0) g/dL RDW 17.7 H (11.5-15.5) % Neutrophils # 8.1 H (1.3-7.7) k/uL Lymphocytes # 0.7 L (1.0-4.8) k/uL Chloride 94 L (98-107) mmol/L Carbon Dioxide 35 H (22-30) mmol/L BUN 54 H (9-20) mg/dL Glucose 130 H (74-99) mg/dL Alkaline Phosphatase 219 H (38-126) U/L Total Protein 6.1 L (6.3-8.2) g/dL Albumin 3.2 L (3.5-5.0) g/dL Assessment and Plan Assessment: Acute exacerbation of diastolic CHF, with significant cardiomegaly, pulmonary vascular congestion, and small effusions. Acute exacerbation of chronic bronchial asthma/COPD, improving and the patient remains on bronchodilators and systemic steroids Acute on chronic hypoxemic and hypercapnic respiratory failure secondary to above, currently alternating with BiPAP and nasal cannula Paroxysmal A. fib maintenance and he is on anticoagulation with Xarelto Acute on chronic kidney disease, patient has a history of chronic kidney disease stage III, creatinine is currently at 1.4 Acute metabolic encephalopathy, improved and the mental status is back to its baseline Anemia of chronic disease Obstructive sleep apnea syndrome, maintained on CPAP Chronic venous stasis and right lower extremity wounds Benign essential hypertension History of hyperlipidemia Morbid obesity, with a BMI of 45.9 kg/m Poor overall functional performance based on the above-mentioned multiple comorbidities, frequent readmissions Resides in extended care facility Plan: The patient was seen and evaluated Labs and medications reviewed Continues on oral diuretics Plan is to [facility] return to [facility] at discharge I have personally seen and examined the patient, performed the documentation and the assessment and plan as written. Number of minutes spent on the visit: 10.
[2023-09-11 13:47] VITALS: BP 122/52; PULSE 64; RESP 22; TEMP 98
[2023-09-11] MEDS ORDERED: FUROSEMIDE 40 MG TAB PO SCH (16:00)
[2023-09-12] MEDS ORDERED: SPIRONOLACTONE 25 MG TAB PO SCH (09:00)
[2023-09-12] MEDS ORDERED: predniSONE 20 MG TAB PO SCH (09:00)
== END 2023-09-11 14:33 | DRG 291 ==
LOC: EC 16:20 → 4SSUR 19:28
PROVIDERS: ADMIT Internal Medicine; ATTEND Internal Medicine
PROC: 5A09357 Assistance with Respiratory Ventilation, Less than 24 Consecutive Hours, Continuous Positive Airway Pressure (ICD-10-PCS; principal; 2023-09-07)
DX: I13.0 Hypertensive heart and chronic kidney disease with heart failure and stage 1 through stage 4 chronic kidney disease, or unspecified chronic kidney disease (principal); G93.41 Metabolic encephalopathy; J96.21 Acute and chronic respiratory failure with hypoxia; J96.22 Acute and chronic respiratory failure with hypercapnia; I50.33 Acute on chronic diastolic (congestive) heart failure; Z68.42 Body mass index [BMI] 45.0-49.9, adult; J45.41 Moderate persistent asthma with (acute) exacerbation; J44.1 Chronic obstructive pulmonary disease with (acute) exacerbation; E66.2 Morbid (severe) obesity with alveolar hypoventilation; L97.919 Non-pressure chronic ulcer of unspecified part of right lower leg with unspecified severity; Z96.652 Presence of left artificial knee joint; Z20.822 Contact with and (suspected) exposure to COVID-19; K21.9 Gastro-esophageal reflux disease without esophagitis; E78.5 Hyperlipidemia, unspecified; M19.91 Primary osteoarthritis, unspecified site; I87.8 Other specified disorders of veins; F32.A Depression, unspecified; N40.0 Benign prostatic hyperplasia without lower urinary tract symptoms; N18.30 Chronic kidney disease, stage 3 unspecified; I48.0 Paroxysmal atrial fibrillation; D63.1 Anemia in chronic kidney disease; E03.9 Hypothyroidism, unspecified; F41.9 Anxiety disorder, unspecified; G62.9 Polyneuropathy, unspecified; Z99.81 Dependence on supplemental oxygen; Z79.899 Other long term (current) drug therapy; Z79.01 Long term (current) use of anticoagulants; Z87.01 Personal history of pneumonia (recurrent); Z87.891 Personal history of nicotine dependence
CPT/HCPCS: 36415; 71045; 71046; 80048; 80053; 83605; 83735; 83880; 84145; 84484; 85025; 85027; 85610; 85730; 87636; 93005; 94640; 94660; 94760; 96374; 96376; 99285

== ENCOUNTER 2023-09-16 14:06 | Inpatient (IN) | payer MEDICARE, BC ==
[2023-09-16] MEDS ORDERED: methylPREDNISolone SOD SUCCI 125 MG/2 ML VIAL IV STA (14:10)
[2023-09-16] MEDS ORDERED: ALBUTEROL NEBULIZED 2.5 MG/3 ML INHALATION STA (14:10)
[2023-09-16] MEDS ORDERED: IPRATROPIUM 0.5 MG/2.5 ML NEBU INHALATION STA (14:10)
--- NOTE | 2023-09-16 14:15 | ED ---
General Adult HPI - General Chief complaint: Shortness of Breath Stated complaint: respiratory distress Time Seen by Provider: 09/16/23 14:06 Source: patient, EMS, RN notes reviewed, old records reviewed Mode of arrival: EMS Limitations: no limitations - History of Present Illness Initial comments: This is a 73-year-old male with a past medical history significant for COPD as well as congestive heart. Patient was in the group home today when he became apneic according to staff for approximately 3 minutes. At that point time they did put him on CPAP and sent to the emergency department. Patient states he is feeling better on the CPAP and he does complain of a little anterior chest pain little right lateral chest pain. According to staff there no CPR was done. Patient's had no recent fever chills per patient denies any abdominal pain. Irving rivera denies headache patient denies any other symptoms at this time. - Related Data Home Medications Medication Instructions Recorded Confirmed Sertraline [Zoloft] 100 mg PO HS 04/04/17 09/07/23 Atorvastatin [Lipitor] 20 mg PO HS 07/14/19 09/07/23 Tamsulosin [Flomax] 0.4 mg PO DAILY 07/14/19 09/07/23 Ipratropium-Albuterol Nebulize 3 ml INHALATION RT-Q6H 08/19/19 09/07/23 [Duoneb 0.5 mg-3 mg/3 ml Soln] Acetaminophen Tab [Tylenol] 500 mg PO Q6H PRN 03/26/23 09/07/23 Cholecalciferol [Vitamin D3 (25 50 mcg PO DAILY 03/26/23 09/07/23 Mcg = 1000 Iu)] Montelukast [Singulair] 10 mg PO HS 08/07/23 09/07/23 Omeprazole [PriLOSEC] 20 mg PO DAILY 08/07/23 09/07/23 Ammonium Lactate Lotion 1 applic TOPICAL BID 08/23/23 09/07/23 [Lac-Hydrin 12% Lotion] Metoprolol Tartrate [Lopressor] 37.5 mg PO BID 08/23/23 09/07/23 allopurinoL 200 mg PO DAILY 08/23/23 09/07/23 INSULIN ASPART (NovoLOG) [NovoLOG See Protocol SQ AC-TID 09/07/23 09/07/23 (formulary)] predniSONE See Taper PO DIRECTED 09/07/23 09/07/23 Previous Rx's Medication Instructions Recorded Rivaroxaban [Xarelto] 15 mg PO W/SUPPER #30 tab 06/25/23 Benzonatate [Tessalon Perles] 200 mg PO TID PRN cap 07/17/23 Budesonide [Pulmicort] 1 mg INHALATION RT-BID ml 08/11/23 Melatonin 10 mg PO HS PRN tab 08/11/23 Artificial Tears-Hypromellose 1 drops BOTH EYES TID PRN ml 09/04/23 [Artificial Tear Drops] Cefuroxime [Ceftin] 250 mg PO BID 7 Days #14 tab 09/04/23 Cyanocobalamin [Vitamin B-12] 1,000 mcg PO DAILY tab 09/04/23 Nystatin 100,000 Unit/gm Powd 1 applic TOPICAL BID #0 each 09/04/23 [Mycostatin Powder] Gabapentin [Neurontin] 300 mg PO HS #3 cap 09/10/23 Furosemide [Lasix] 40 mg PO DAILY@1600 #90 tab 09/11/23 Furosemide [Lasix] 40 mg PO DAILY@1600 #90 tablet 09/11/23 Furosemide [Lasix] 80 mg PO DAILY #90 tab 09/11/23 Spironolactone [Aldactone] 25 mg PO DAILY #90 tablet 09/11/23 predniSONE [Deltasone] 40 mg PO DAILY #22 tab 09/11/23 Allergies Allergy/AdvReac Type Severity Reaction Status Date / Time No Known Allergies Allergy Verified 09/16/23 14:12 Review of Systems ROS Statement: Those systems with pertinent positive or pertinent negative responses have been documented in the HPI. ROS Other: All systems not noted in ROS Statement are negative. Past Medical History Past Medical History: Asthma, Chest Pain / Angina, GERD/Reflux, Hyperlipidemia, Hypertension, Osteoarthritis (OA), Pneumonia, Sleep Apnea/CPAP/BIPAP Additional Past Medical History / Comment(s): uses oxygen at night 2L, gout, in wheelchair or walker due to pain in left leg, poor circulation in legs History of Any Multi-Drug Resistant Organisms: None Reported Past Surgical History: Orthopedic Surgery, Tonsillectomy Additional Past Surgical History / Comment(s): LEFT WRIST ORIF, LEFT KNEE REPLACEMENT, bilateral cataract surgery Past Anesthesia/Blood Transfusion Reactions: No Reported Reaction Additional Past Anesthesia/Blood Transfusion Reaction / Comment(s): . Past Psychological History: Depression Smoking Status: Former smoker Past Alcohol Use History: None Reported Past Drug Use History: None Reported - Past Family History Mother Family Medical History: Congestive Heart Failure (CHF), Osteoarthritis (OA) Father Additional Family Medical History / Comment(s): FROM [place] Brother(s) Family Medical History: Cancer Additional Family Medical History / Comment(s): . Sister(s) Family Medical History: Deep Vein Thrombosis (DVT) General Exam - General Exam Comments Initial Comments: GENERAL: Patient is well-developed and well-nourished. Patient is nontoxic and well- hydrated and is in mild distress. ENT: Neck is soft and supple. No significant lymphadenopathy is noted. Oropharynx is clear. Moist mucous membranes. Neck has full range of motion without eliciting any pain. EYES: The sclera were anicteric and conjunctiva were pink and moist. Extraocular movements were intact and pupils were equal round and reactive to light. Eyelids were unremarkable. PULMONARY: Patient has diminished breath sounds and respiratory wheezing bilateral CARDIOVASCULAR: There is a regular rate and rhythm without any murmurs gallops or rubs. ABDOMEN: Soft and nontender with normal bowel sounds. SKIN: Skin is clear with no lesions or rashes and otherwise unremarkable. NEUROLOGIC: Patient is alert and oriented x3. Cranial nerves II through XII are grossly intact. Motor and sensory are also intact. Normal speech, volume and content. Symmetrical smile. MUSCULOSKELETAL: Normal extremities with adequate strength and full range of motion. No lower extremity swelling or edema. No calf tenderness. LYMPHATICS: No significant lymphadenopathy is noted PSYCHIATRIC: Normal psychiatric evaluation. Limitations: no limitations Course Vital Signs 09/16/23 09/16/23 09/16/23 14:09 14:14 14:40 Temperature 98.5 F Pulse Rate 60 Respiratory 24 24 Rate Blood Pressure 111/65 O2 Sat by Pulse 95 Oximetry Fraction of 30 Inspired Oxygen (FIO2) 09/16/23 09/16/23 09/16/23 14:41 14:46 14:54 Temperature Pulse Rate 58 L Respiratory Rate Blood Pressure O2 Sat by Pulse Oximetry Fraction of 30 30 Inspired Oxygen (FIO2) 09/16/23 09/16/23 09/16/23 14:58 15:57 16:24 Temperature Pulse Rate 58 L 56 L Respiratory 18 Rate Blood Pressure 125/75 O2 Sat by Pulse 100 Oximetry Fraction of 30 Inspired Oxygen (FIO2) Medical Decision Making - Medical Decision Making EKG is interpreted by myself. EKG is a sinus bradycardia 59 bpm IL interval 106 and QRS is under 10 Q-T intervals 442 QTC is 441. Patient's EKG shows no ST segment elevation or depression. Was pt. sent in by a medical professional or institution (, [facility], [facility], urgent care, hospital, or group home...) When possible be specific @ -prison sent the patient in Did you speak to anyone other than the patient for history (EMS, parent, family, police, friend...)? What history was obtained from this source @ -EMS gave all the history Did you review nursing and triage notes (agree or disagree)? Why? @ -I reviewed and agree with nursing and triage notes Were old charts reviewed (outside hosp., previous admission, EMS record, old EKG, old radiological studies, urgent care reports/EKG's, group home records)? Report findings @ -I reviewed prior charts prior lab work and prior radiological studies. Differential Diagnosis (chest pain, altered mental status, abdominal pain women, abdominal pain men, vaginal bleeding, weakness, fever, dyspnea, syncope, headache, dizziness, GI bleed, back pain, seizure, CVA, palpatations, mental health, musculoskeletal)? @ -Differential Dyspnea: Coronary syndrome, arrhythmia, tamponade, asthma, COPD, pulmonary embolism, pneumonia, pneumothorax, pulmonary effusion, anaphylaxis, diabetic ketoacidosis, flailed chest, pulmonary contusion, diaphragmatic rupture, anemia, neuromuscular, this is not meant to be an all-inclusive list. EKG interpreted by me (3pts min.). @ -As above X-rays interpreted by me (1pt min.). @ -Chest x-ray shows pulmonary edema CT interpreted by me (1pt min.). @ -None done U/S interpreted by me (1pt. min.). @ -None done What testing was considered but not performed or refused? (CT, X-rays, U/S, l abs)? Why? @ -None What meds were considered but not given or refused? Why? @ -None Did you discuss the management of the patient with other professionals (professionals i.e. , [facility], [facility], lab, RT, psych nurse, child protective services social worker, financial analyst, teacher, risk control officer, case finisher)? Give summary @ -I spoke with Dr. Leon he agreed to admit the patient admitted the patient Was smoking cessation discussed for >3mins.? @ -No Was critical care preformed (if so, how long)? @ -No Were there social determinants of health that impacted care today? How? (Homelessness, low income, unemployed, alcoholism, drug addiction, tra nsportation, low edu. Level, literacy, decrease access to med. care, skilled nursing, rehab)? @ -No Was there de-escalation of care discussed even if they declined (Discuss DNR or withdrawal of care, Hospice)? DNR status @ -No What co-morbidities impacted this encounter? (DM, HTN, Smoking, COPD, CAD, Cancer, CVA, ARF, Chemo, Hep., AIDS, mental health diagnosis, sleep apnea, morbid obesity)? @ -None Was patient admitted / discharged? Hospital course, mention meds given and route, prescriptions, significant lab abnormalities, going to OR and other pertinent info. @ -Patient remained on BiPAP in the emergency department was feeling considerably better. Patient is also given Lasix because of the pulmonary edema in the x-ray. I spoke with Dr. Leon he agreed to admit the patient admitted the patient I consult pulmonary and cardiology. Undiagnosed new problem with uncertain prognosis? @ -No Drug Therapy requiring intensive monitoring for toxicity (Heparin, Nitro, Insulin, Cardizem)? @ -No Were any procedures done? @ -No Diagnosis/symptom? @ -Acute pulmonary edema Acute, or Chronic, or Acute on Chronic? @ -Acute Uncomplicated (without systemic symptoms) or Complicated (systemic symptoms)? @ -Complicated Side effects of treatment? @ -No Exacerbation, Progression, or Severe Exacerbation? @ -No Poses a threat to life or bodily function? How? (Chest pain, [place], [place], pneumonia, PE, COPD, DKA, ARF, appy, cholecystitis, CVA, Diverticulitis, Homicidal, Suicidal, threat to staff... and all critical care pts) @ -Yes still lead to hypoxia and end organ dysfunction Diagnosis/symptom? @ -Apnea Acute, or Chronic, or Acute on Chronic? @ -Acute Uncomplicated (without systemic symptoms) or Complicated (systemic symptoms)? @ -Complicated Side effects of treatment? @ -none Exacerbation, Progression, or Severe Exacerbation] @ -no Poses a threat to life or bodily function? @ -no - Lab Data Result diagrams: 09/16/23 14:31 09/16/23 14:31 Lab Results 09/16/23 09/16/23 09/16/23 Range/Units 14:23 14:31 14:31 WBC 9.7 (3.8-10.6) k/uL RBC 3.51 L (4.30-5.90) m/uL Hgb 9.3 L (13.0-17.5) gm/dL Hct 30.8 L (39.0-53.0) % MCV 87.7 (80.0-100.0) fL MCH 26.6 (25.0-35.0) pg MCHC 30.4 L (31.0-37.0) g/dL RDW 17.6 H (11.5-15.5) % Plt Count 176 (150-450) k/uL MPV 7.5 Neutrophils % 91 % Lymphocytes % 4 % Monocytes % 4 % Eosinophils % 0 % Basophils % 0 % Neutrophils # 8.8 H (1.3-7.7) k/uL Lymphocytes # 0.4 L (1.0-4.8) k/uL Monocytes # 0.4 (0-1.0) k/uL Eosinophils # 0.0 (0-0.7) k/uL Basophils # 0.0 (0-0.2) k/uL Hypochromasia Marked Anisocytosis Slight PT 13.2 H (10.0-12.5) sec INR 1.3 H (<1.2) APTT 27.5 (22.0-30.0) sec VBG pH 7.42 H (7.31-7.41) VBG pCO2 57 H (37-51) mmHg VBG HCO3 36 H (24-28) mmol/L Sodium (137-145) mmol/L Potassium (3.5-5.1) mmol/L Chloride (98-107) mmol/L Carbon Dioxide (22-30) mmol/L Anion Gap mmol/L BUN (9-20) mg/dL Creatinine (0.66-1.25) mg/dL Est GFR (CKD-EPI)AfAm (>60 ml/min/1.73 sqM) Est GFR (CKD-EPI)NonAf (>60 ml/min/1.73 sqM) Glucose (74-99) mg/dL Plasma Lactic Acid Shankar (0.7-2.0) mmol/L Calcium (8.4-10.2) mg/dL Magnesium (1.6-2.3) mg/dL Total Bilirubin (0.2-1.3) mg/dL AST (17-59) U/L ALT (4-49) U/L Alkaline Phosphatase (38-126) U/L Troponin I (0.000-0.034) ng/mL NT-Pro-B Natriuret Pep pg/mL Total Protein (6.3-8.2) g/dL Albumin (3.5-5.0) g/dL 09/16/23 09/16/23 09/16/23 Range/Units 14:31 14:31 14:31 WBC (3.8-10.6) k/uL RBC (4.30-5.90) m/uL Hgb (13.0-17.5) gm/dL Hct (39.0-53.0) % MCV (80.0-100.0) fL MCH (25.0-35.0) pg MCHC (31.0-37.0) g/dL RDW (11.5-15.5) % Plt Count (150-450) k/uL MPV Neutrophils % % Lymphocytes % % Monocytes % % Eosinophils % % Basophils % % Neutrophils # (1.3-7.7) k/uL Lymphocytes # (1.0-4.8) k/uL Monocytes # (0-1.0) k/uL Eosinophils # (0-0.7) k/uL Basophils # (0-0.2) k/uL Hypochromasia Anisocytosis PT (10.0-12.5) sec INR (<1.2) APTT (22.0-30.0) sec VBG pH (7.31-7.41) VBG pCO2 (37-51) mmHg VBG HCO3 (24-28) mmol/L Sodium 137 (137-145) mmol/L Potassium 4.3 (3.5-5.1) mmol/L Chloride 97 L (98-107) mmol/L Carbon Dioxide 34 H (22-30) mmol/L Anion Gap 6 mmol/L BUN 50 H (9-20) mg/dL Creatinine 1.14 (0.66-1.25) mg/dL Est GFR (CKD-EPI)AfAm 74 (>60 ml/min/1.73 sqM) Est GFR (CKD-EPI)NonAf 64 (>60 ml/min/1.73 sqM) Glucose 135 H (74-99) mg/dL Plasma Lactic Acid Shankar 1.3 (0.7-2.0) mmol/L Calcium 8.7 (8.4-10.2) mg/dL Magnesium 1.9 (1.6-2.3) mg/dL Total Bilirubin 1.2 (0.2-1.3) mg/dL AST 40 (17-59) U/L ALT 45 (4-49) U/L Alkaline Phosphatase 191 H (38-126) U/L Troponin I <0.012 (0.000-0.034) ng/mL NT-Pro-B Natriuret Pep 2680 pg/mL Total Protein 6.4 (6.3-8.2) g/dL Albumin 3.3 L (3.5-5.0) g/dL Disposition Clinical Impression: Acute pulmonary edema, Apnea Disposition: ADMITTED IP TO THIS HOSP Referrals: Alison Leon MD [Primary Care Provider] - 1-2 days Time of Disposition: 16:46
[2023-09-16 14:37] LABS: Anisocytosis Slight; Basophils % (A) 0 %; Eosinophils % (A) 0 %; HCT 30.8 % (39.0-53.0); HGB 9.3 gm/dL (13.0-17.5); Hypochromasia Marked; Lymphocytes # (A) 0.4 k/uL (1.0-4.8); Lymphocytes % (A) 4 %; MCH 26.6 pg (25.0-35.0); MCHC 30.4 g/dL (31.0-37.0); MCV 87.7 fL (80.0-100.0); Mean Platelet Volume 7.5; Monocytes # (A) 0.4 k/uL (0-1.0); Monocytes % (A) 4 %; Neutrophils # (A) 8.8 k/uL (1.3-7.7); Neutrophils % (A) 91 %; Platelet Count 176 k/uL (150-450); RBC 3.51 m/uL (4.30-5.90); RDW 17.6 % (11.5-15.5); WBC 9.7 k/uL (3.8-10.6)
--- NOTE | 2023-09-16 14:37 | XR ---
EXAMINATION TYPE: XR chest 1V DATE OF EXAM: 09/16/2023 COMPARISON: 09/09/2023 INDICATION: Difficulty breathing TECHNIQUE: Single frontal view of the chest is obtained. FINDINGS: The heart size is prominent. The pulmonary vasculature is prominent. A single increased lung markings are present bilaterally. Correlate for pulmonary edema. Small right pleural effusion may be present. There is poor visualization of the left diaphragm. IMPRESSION: 1. Clinical correlation for pulmonary edema small right pleural effusion is recommended
[2023-09-16 14:53] LABS: INR 1.3 (<1.2); Partial Thromboplastin Time 27.5 sec (22.0-30.0); Prothrombin Time 13.2 sec (10.0-12.5)
[2023-09-16 15:04] LABS: VBG PH 7.42 (7.31-7.41)
[2023-09-16 15:12] LABS: ALT 45 U/L (4-49); AST 40 U/L (17-59); African American GFR (CKD) 74 (>60 ml/min/1.73 sqM); Albumin 3.3 g/dL (3.5-5.0); Alkaline Phosphatase 191 U/L (38-126); Anion Gap 6 mmol/L; Blood Urea Nitrogen 50 mg/dL (9-20); Calcium 8.7 mg/dL (8.4-10.2); Carbon Dioxide 34 mmol/L (22-30); Chloride 97 mmol/L (98-107); Glucose 135 mg/dL (74-99); Magnesium 1.9 mg/dL (1.6-2.3); Non-African American GFR(CKD) 64 (>60 ml/min/1.73 sqM); Potassium 4.3 mmol/L (3.5-5.1); Sodium 137 mmol/L (137-145); Total Bilirubin 1.2 mg/dL (0.2-1.3); Total Protein 6.4 g/dL (6.3-8.2)
[2023-09-16 15:18] LABS: NT-Pro-B-Type Natriuretic Pept 2680 pg/mL
[2023-09-16] MEDS ORDERED: FUROSEMIDE 10 MG/ML 4 ML VIAL IV STA (16:42)
[2023-09-16] MEDS: FUROSEMIDE 10 MG/ML 4 ML VIAL IV SCH (17:49)
[2023-09-16] MEDS ORDERED: ARTIFICIAL TEARS-HYPROMELLOSE DROPS 15 ML BTL BOTH EYES PRN (19:45)
[2023-09-16] MEDS ORDERED: guaiFENesin SYRUP 100MG/5ML 200 MG/10 ML CUP PO PRN (19:47)
[2023-09-16] MEDS: methylPREDNISolone SOD SUCCI 125 MG/2 ML VIAL IV SCH (20:54)
[2023-09-16] MEDS: PIPERACILLIN-TAZOBACTAM 3.375 GM in SODIUM CHLORIDE 0.9% 100 ML IVPB SCH (20:54)
[2023-09-16] MEDS: ATORVASTATIN 20 MG TAB PO SCH (20:55)
[2023-09-16] MEDS: METOPROLOL TARTRATE 25 MG TAB PO SCH ×2 (20:55→21:04)
[2023-09-16] MEDS: GABAPENTIN 300 MG CAP PO SCH (20:55)
[2023-09-16] MEDS: MONTELUKAST 10 MG TAB PO SCH (20:56)
[2023-09-16] MEDS: SERTRALINE 100 MG TAB PO SCH (20:56)
[2023-09-16] MEDS: BENZONATATE 100 MG CAP PO PRN (20:56)
[2023-09-16] MEDS: NYSTATIN 100,000 UNIT/GM POWD 15 GM TOPICAL SCH (20:56)
[2023-09-16] MEDS: TAMSULOSIN 0.4 MG CAP.ER.24H PO SCH (20:56)
[2023-09-16] MEDS: ACETAMINOPHEN TAB 500 MG TAB PO PRN (20:59)
[2023-09-16] MEDS: MELATONIN 5 MG TABLET PO PRN (21:00)
[2023-09-16] MEDS: BUDESONIDE 1 MG/2 ML NEBU INHALATION SCH (21:07)
[2023-09-17] MEDS ORDERED: IPRATROPIUM-ALBUTEROL 3 ML NEB INHALATION PRN (00:19)
[2023-09-17] MEDS: FUROSEMIDE 10 MG/ML 4 ML VIAL IV SCH ×2 (01:45→07:23)
[2023-09-17] MEDS: methylPREDNISolone SOD SUCCI 125 MG/2 ML VIAL IV SCH ×4 (01:45→17:27)
--- NOTE | 2023-09-17 03:45 | P.CNPUL ---
History of Present Illness Consult date: 09/17/23 Requesting physician: Vinayak Trujillo Reason for consult: dyspnea Chief complaint: Shortness of breath History of present illness: I am seeing this patient in consultation again 09/17/2023 in the emergency room after he was readmitted for acute on chronic hypoxemic and hypercapnic respiratory failure requiring BiPAP. Patient is a 73-year-old white male who resides at a local [facility]. His past medical history significant for congestive heart failure, asthma/COPD, obstructive sleep apnea with CPAP, chronic oxygen dependence, hyperlipidemia, hypertension, paroxysmal atrial fibrillation, chroni c leg wounds, among other things. Patient was discharged 6 days ago for similar symptoms. Patient was reportedly at his skilled nursing, when staff noticed him to be apneic. They did attempt to put him back on his home CPAP device. Patient reportedly never lost pulse and no CPR was performed. Patient was transferred to the emergency department by EMS yesterday afternoon. Patient is currently si tting up in bed, on BiPAP with settings of 12/5 in an FiO2 30%, in no acute distress. He is alert and oriented. No signs of hypercapenic encephalopathy. He does say that he has been short of breath since his recent hospital discharge. He also admits some increased lower extremity edema. He states that he has some substernal chest tightness without radiation. Denies any heart palpitations, lightheadedness. He denies any fevers, chills, cough. Chest x-ray on arrival demonstrated pulmonary edema and a small right pleural effusion. Patient has been started on Lasix 40 mg 3 times a day. CBC on arrival showed a WBC count of 9.7, hemoglobin 9.3, hematocrit 30.8, platelets 176. VBG done on arrival showed a pCO2 of 37, and pH of 7.42. BMP on arrival shows sodium 137, potassium 4.3, chloride 97, serum bicarbonate 34, BUN 50, creatinine 1.14, glucose 135. Lactic acid level was not elevated. Troponin less than 0.012. Heart rhythm shows sinus bradycardia with a rate of 59 bpm and no acute ischemic changes. NT proBNP was elevated at 2680. Patient is afebrile. Patient was empirically placed on Zosyn in the emergency room. Patient is to be admitted to cardiac stepdown unit once bed available. Review of Systems REVIEW OF SYSTEMS: CONSTITUTIONAL: Denies any recent significant weight loss or weight gain. EYES: Denies change in vision. EARS, NOSE, MOUTH, THROAT: Denies headaches, denies sore throat. CARDIOVASCULAR: See HPI RESPIRATORY: Denies cough, congestion or hemoptysis. Admits shortness of breath GASTROINTESTINAL: Denies change in appetite, abdominal pain, nausea and vomiting, or diarrhea GENITOURINARY: Denies hematuria, denies infections. MUSKULOSKELETAL: Denies pain, denies swelling. INTEGUMENTARY: Denies rash, denies eczema. Admits lower extremity wounds. NEUROLOGICAL: Denies recent memory loss, no recent seizure activity. PSYCHIATRIC: Denies anxiety, denies depression. HEMATOLOGIC/LYMPHATIC: Denies anemia, denies enlarged lymph node Past Medical History Past Medical History: Asthma, Chest Pain / Angina, GERD/Reflux, Hyperlipidemia, Hypertension, Osteoarthritis (OA), Pneumonia, Sleep Apnea/CPAP/BIPAP Additional Past Medical History / Comment(s): uses oxygen at night 2L, gout, in wheelchair or walker due to pain in left leg, poor circulation in legs History of Any Multi-Drug Resistant Organisms: None Reported Past Surgical History: Orthopedic Surgery, Tonsillectomy Additional Past Surgical History / Comment(s): LEFT WRIST ORIF, LEFT KNEE REPLACEMENT, bilateral cataract surgery Past Anesthesia/Blood Transfusion Reactions: No Reported Reaction Additional Past Anesthesia/Blood Transfusion Reaction / Comment(s): . Past Psychological History: Depression Smoking Status: Former smoker Past Alcohol Use History: None Reported Past Drug Use History: None Reported - Past Family History Mother Family Medical History: Congestive Heart Failure (CHF), Osteoarthritis (OA) Father Additional Family Medical History / Comment(s): FROM [place] Brother(s) Family Medical History: Cancer Additional Family Medical History / Comment(s): . Sister(s) Family Medical History: Deep Vein Thrombosis (DVT) Medications and Allergies Home Medications Medication Instructions Recorded Confirmed Type Sertraline [Zoloft] 100 mg PO HS@209904/04/17 09/16/23 History Atorvastatin [Lipitor] 20 mg PO HS@209907/14/19 09/16/23 History Tamsulosin [Flomax] 0.4 mg PO HS@209907/14/19 09/16/23 History Ipratropium-Albuterol Nebulize 3 ml INHALATION RT-Q6H@00,06,12,18 08/19/19 09/16/23 History [Duoneb 0.5 mg-3 mg/3 ml Soln] Acetaminophen Tab [Tylenol] 500 mg PO Q6H PRN 03/26/23 09/16/23 History Cholecalciferol [Vitamin D3 (25 50 mcg PO DAILY@0900 03/26/23 09/16/23 History Mcg = 1000 Iu)] Benzonatate [Tessalon Perles] 200 mg PO TID PRN cap 07/17/23 09/16/23 Rx Montelukast [Singulair] 10 mg PO HS@209908/07/23 09/16/23 History Omeprazole [PriLOSEC] 20 mg PO DAILY@0608/07/23 09/16/23 History Melatonin 10 mg PO HS PRN tab 08/11/23 09/16/23 Rx Ammonium Lactate Lotion 1 applic TOPICAL BID 08/23/23 09/16/23 History [Lac-Hydrin 12% Lotion] Metoprolol Tartrate [Lopressor] 37.5 mg PO BID@0900,209908/23/23 09/16/23 History allopurinoL 200 mg PO DAILY@89908/23/23 09/16/23 History Nystatin 100,000 Unit/gm Powd 1 applic TOPICAL BID #0 each 09/04/23 09/16/23 Rx [Mycostatin Powder] Artificial Tears-Hypromellose 1 drop BOTH EYES TID PRN 09/16/23 09/16/23 History [Artificial Tear Drops] Budesonide [Pulmicort] 1 mg INHALATION RT-BID@899,209909/16/23 09/16/23 History Cyanocobalamin [Vitamin B-12] 1,000 mcg PO DAILY@0909/16/23 09/16/23 History Furosemide [Lasix] 80 mg PO BID@0900,1700 09/16/23 09/16/23 History Gabapentin [Neurontin] 300 mg PO HS@209909/16/23 09/16/23 History Rivaroxaban [Xarelto] 15 mg PO DAILY@1700 09/16/23 09/16/23 History Spironolactone [Aldactone] 25 mg PO DAILY@0900 09/16/23 09/16/23 History metOLazone [Zaroxolyn] 2.5 mg PO MOFR 09/16/23 09/16/23 History predniSONE [Deltasone] See Taper PO DIRECTED 09/16/23 09/16/23 History Allergies Allergy/AdvReac Type Severity Reaction Status Date / Time No Known Allergies Allergy Verified 09/16/23 14:12 Physical Exam Vitals: Vital Signs Temp Pulse Resp BP Pulse Ox FiO2 09/17/23 01:46 94 20 136/73 97 09/17/23 00:55 30 09/17/23 00:20 54 L 23 136/54 98 09/16/23 21:36 58 L 09/16/23 21:23 60 30 09/16/23 21:03 58 L 20 136/73 96 09/16/23 17:30 54 L 18 126/77 96 09/16/23 17:00 53 L 18 137/75 96 09/16/23 16:30 52 L 18 144/81 95 09/16/23 16:24 30 09/16/23 16:00 58 L 16 125/75 95 09/16/23 15:57 56 L 18 125/75 100 09/16/23 14:58 58 L 09/16/23 14:54 30 09/16/23 14:46 58 L 09/16/23 14:41 30 09/16/23 14:40 30 09/16/23 14:14 24 09/16/23 14:09 98.5 F 60 24 111/65 95 Intake and Output 09/16/23 09/16/23 09/17/23 14:59 22:59 06:59 Other: Weight 122.47 kg GENERAL EXAM: Alert and oriented, 73-year-old morbidly obese male, comfortable in no apparent distress. HEAD: Normocephalic and atraumatic EYES: Normal reaction of pupils, equal size. NOSE: Clear with pink turbinates. THROAT: No erythema or exudates. NECK: No masses, no JVD. CHEST: No chest wall deformity. LUNGS: Equal air entry with bibasilar inspiratory crackles. Mild expiratory wheezes heard throughout. Currently on BiPAP settings 12/5 and FiO2 30%. No conversational dyspnea or accessory muscle use.. CVS: S1 and S2 normal with no audible murmur, regular rhythm. No extra heart ervin nds ABDOMEN obese abdomen, no hepatosplenomegaly, active bowel sounds, no guarding or rigidity. SPINE: No scoliosis or deformity SKIN: right lower extremity partial thickness ulceration, legs are wrapped with Toribio bandages CENTRAL NERVOUS SYSTEM: No focal deficits, tone is normal in all 4 extremities. EXTREMITIES: There is bilateral lower extremity 3-4+ pitting edema. No clubbing, or cyanosis. Peripheral pulses are intact. Results - Laboratory Findings CBC and BMP: 09/16/23 14:31 09/16/23 14:31 PT/INR, D-dimer PT 13.2 sec (10.0-12.5) H 09/16/23 14:31 INR 1.3 (<1.2) H 09/16/23 14:31 Abnormal lab findings: Abnormal Labs 09/16/23 09/16/23 09/16/23 14:23 14:31 14:31 RBC 3.51 L Hgb 9.3 L Hct 30.8 L MCHC 30.4 L RDW 17.6 H Neutrophils # 8.8 H Lymphocytes # 0.4 L PT 13.2 H INR 1.3 H VBG pH 7.42 H VBG pCO2 57 H VBG HCO3 36 H Chloride Carbon Dioxide BUN Glucose Alkaline Phosphatase Albumin 09/16/23 14:31 RBC Hgb Hct MCHC RDW Neutrophils # Lymphocytes # PT INR VBG pH VBG pCO2 VBG HCO3 Chloride 97 L Carbon Dioxide 34 H BUN 50 H Glucose 135 H Alkaline Phosphatase 191 H Albumin 3.3 L - Diagnostic Findings Chest x-ray: image reviewed Assessment and Plan Assessment: Acute exacerbation of diastolic CHF, chest x-ray shows cardiomegaly, pulmonary edema, and right sided pleural effusion. Echocardiogram from 08/25/23 showed ejection fraction of left ventricle in the order of 50-55%, and otherwise was a limited exam Acute exacerbation of chronic bronchial asthma/COPD Acute on chronic hypoxemic and hypercapnic respiratory failure, currently on BiPAP Paroxysmal atrial fibrillation., currently in sinus rhythm, anticoagulation with Xarelto Chronic kidney disease stage III Anemia of chronic disease. Obstructive sleep apnea syndrome, maintained on CPAP. Chronic venous stasis and right lower extremity wounds Benign essential hypertension History of hyperlipidemia Morbid obesity, with a BMI of 44.9 kg/m Plan: Patient's medications, labs, chest x-ray reviewed Continue BiPAP with settings 12/5 and FIO2 30%. No signs of hypercapnic encephalopathy. Receiving Lasix 40 mg TID Continue bronchodilators, formoterol, budesonide Add Solu-Medrol Empirically on Zosyn. Check procalcitonin level Patient has had multiple hospital readmissions this year for similar issues. Overall prognosis is guarded. A hospice consultation was placed as an informational visit. We will continue to follow, and further recommendations are forthcoming I have personally seen and examined the patient, performed the documentation and the assessment and plan as written. Number of minutes spent on the visit:20 Time with Patient: Greater than 30
[2023-09-17 06:47] LABS: Anisocytosis Slight; Basophils % (A) 0 %; Eosinophils % (A) 0 %; HCT 27.9 % (39.0-53.0); HGB 8.6 gm/dL (13.0-17.5); Hypochromasia Marked; Lymphocytes # (A) 0.5 k/uL (1.0-4.8); Lymphocytes % (A) 12 %; MCHC 30.8 g/dL (31.0-37.0); MCV 87.6 fL (80.0-100.0); Mean Platelet Volume 7.1; Monocytes # (A) 0.2 k/uL (0-1.0); Monocytes % (A) 4 %; Neutrophils # (A) 3.9 k/uL (1.3-7.7); Neutrophils % (A) 84 %; Platelet Count 147 k/uL (150-450); RBC 3.19 m/uL (4.30-5.90); RDW 17.5 % (11.5-15.5); WBC 4.7 k/uL (3.8-10.6)
[2023-09-17 07:03] LABS: ALT 42 U/L (4-49); AST 30 U/L (17-59); African American GFR (CKD) 54 (>60 ml/min/1.73 sqM); Albumin 3.2 g/dL (3.5-5.0); Alkaline Phosphatase 163 U/L (38-126); Anion Gap 8 mmol/L; Blood Urea Nitrogen 56 mg/dL (9-20); Calcium 8.9 mg/dL (8.4-10.2); Carbon Dioxide 36 mmol/L (22-30); Chloride 94 mmol/L (98-107); Glucose 131 mg/dL (74-99); Non-African American GFR(CKD) 47 (>60 ml/min/1.73 sqM); Potassium 4.3 mmol/L (3.5-5.1); Sodium 138 mmol/L (137-145); Total Bilirubin 1.2 mg/dL (0.2-1.3); Total Protein 6.1 g/dL (6.3-8.2)
[2023-09-17] MEDS: PIPERACILLIN-TAZOBACTAM 3.375 GM in SODIUM CHLORIDE 0.9% 100 ML IVPB SCH ×3 (07:22→20:09)
[2023-09-17] MEDS: BUDESONIDE 1 MG/2 ML NEBU INHALATION SCH ×2 (07:55→20:20)
[2023-09-17] MEDS: IPRATROPIUM-ALBUTEROL 3 ML NEB INHALATION SCH ×4 (07:55→20:20)
[2023-09-17] MEDS: FORMOTEROL FUMARATE 20 MCG/2 ML NEBU INHALATION SCH ×2 (07:58→20:20)
--- NOTE | 2023-09-17 08:53 | P.CRDCN ---
History of Present Illness History of present illness: HISTORY OF PRESENT ILLNESS: This is a 73-year-old male with a past medical history significant for minimal coronary artery disease, congestive heart failure, hypertension, hyperlipidemia, COPD, paroxysmal atrial fibrillation, obstructive sleep apnea, and chronic hyp oxic respiratory failure. Patient follows in the office with Dr. Ngo. We have been asked to see the patient in consultation for congestive heart failure. Patient examined at the bedside in the emergency room. It is noted that the patient was just admitted to the hospital from 09/07/2023 until 09/11/2023 secondary to CHF. He was discharged to [facility] in stable condition. Apparently, yesterday the patient became hypoxic at his ECF facility and became somewhat unresponsive. EMS was called and he was brought to the hospital for further evaluation. The patient was placed on IV Lasix and BiPAP. He is awake and alert this morning. He denies any chest pain or pressure. He denies any shortness of breath. Vital signs are stable. * EKG reveals sinus bradycardia with no signs of acute ischemia * Chest xray clinical correlation for pulmonary edema. Small right pleural effusion. * Laboratory data: W BC 4.7. Hemoglobin 8.6. Platelet count 147. Sodium 138. Potassium 4.3. BUN 56. Creatinine 1.47. Troponin negative 1. ProBNP 2680. * Current home cardiac medications include spironolactone 25 mg daily, atorvastatin 20 mg IV, Zaroxolyn 2.5 mg Friday and Friday, Xarelto 15 mg daily, Lasix 80 mg twice a day, metoprolol tartrate 37.5 mg twice a day * Most recent echocardiogram obtained in August 2023 revealing ejection fraction 50-55% * Cardiac catheterization history: October 2016 revealing minimal coronary artery disease REVIEW OF SYSTEMS: At the time of my exam: CONSTITUTIONAL: Denies fever or chills. HEENT: Denies blurred vision, vision changes, or eye pain. Denies hemoptysis CARDIOVASCULAR: Denies chest pain. Denies orthopnea. Denies PND. Denies palpitations RESPIRATORY: Denies shortness of breath. GASTROINTESTINAL: Denies abdominal pain. Denies nausea or vomiting. HEMATOLOGIC: Denies bleeding disorders. GENITOURINARY: Denies any blood in urine. SKIN: Denies pruitis. Denies rash. PHYSICAL EXAM: VITAL SIGNS: Reviewed. GENERAL: Well-developed in no acute distress. HEENT: Head is normocephalic. Pupils are equal, round. Sclerae anicteric. Mucous membranes of the mouth are moist. Neck supple. No JVD or thyromegaly LUNGS: Respirations even and unlabored. Lungs diminished with expiratory wheezing HEART: Regular rate and rhythm. S1 and S2 heard. ABDOMEN: Soft. Nondistended. Nontender. EXTREMITIES: Normal range of motion. No clubbing or cyanosis. Peripheral pulses intact. 2+ bilateral lower extremity edema with gauze wraps noted. NEUROLOGIC: Awake and alert. Oriented x 3. ASSESSMENT: Acute on chronic hypoxic respiratory failure, currently on BiPAP Mild exacerbation of chronic heart failure with preserved systolic function, 50- 55% Minimal coronary artery disease, per cardiac catheterization in 2016 Acute kidney injury Acute COPD exacerbation Paroxysmal atrial fibrillation Hypertension Hyperlipidemia Chronic anemia PLAN: No need to repeat echocardiogram as this was performed in August 2023 Resume home cardiac medications Discontinue IV Lasix Resume oral Lasix 80 mg twice a day Add Farxiga 10mg daily Daily weights, accurate I&O, and monitoring of kidney function If patient remains stable, possible discharge back to [facility] tomorrow Further recommendations pending patient's course Nurse practitioner note has been reviewed by physician. Signing provider agrees with the documented findings, assessment, and plan of care. Past Medical History Past Medical History: Asthma, Chest Pain / Angina, GERD/Reflux, Hyperlipidemia, Hypertension, Osteoarthritis (OA), Pneumonia, Sleep Apnea/CPAP/BIPAP Additional Past Medical History / Comment(s): uses oxygen at night 2L, gout, in wheelchair or walker due to pain in left leg, poor circulation in legs History of Any Multi-Drug Resistant Organisms: None Reported Past Surgical History: Orthopedic Surgery, Tonsillectomy Additional Past Surgical History / Comment(s): LEFT WRIST ORIF, LEFT KNEE REPLACEMENT, bilateral cataract surgery Past Anesthesia/Blood Transfusion Reactions: No Reported Reaction Additional Past Anesthesia/Blood Transfusion Reaction / Comment(s): . Past Psychological History: Depression Smoking Status: Former smoker Past Alcohol Use History: None Reported Past Drug Use History: None Reported - Past Family History Mother Family Medical History: Congestive Heart Failure (CHF), Osteoarthritis (OA) Father Additional Family Medical History / Comment(s): FROM [place] Brother(s) Family Medical History: Cancer Additional Family Medical History / Comment(s): . Sister(s) Family Medical History: Deep Vein Thrombosis (DVT) Medications and Allergies Home Medications Medication Instructions Recorded Confirmed Type Sertraline [Zoloft] 100 mg PO HS@209904/04/17 09/16/23 History Atorvastatin [Lipitor] 20 mg PO HS@209907/14/19 09/16/23 History Tamsulosin [Flomax] 0.4 mg PO HS@209907/14/19 09/16/23 History Ipratropium-Albuterol Nebulize 3 ml INHALATION RT-Q6H@00,06,12,18 08/19/19 09/16/23 History [Duoneb 0.5 mg-3 mg/3 ml Soln] Acetaminophen Tab [Tylenol] 500 mg PO Q6H PRN 03/26/23 09/16/23 History Cholecalciferol [Vitamin D3 (25 50 mcg PO DAILY@0903/26/23 09/16/23 History Mcg = 1000 Iu)] Benzonatate [Tessalon Perles] 200 mg PO TID PRN cap 07/17/23 09/16/23 Rx Montelukast [Singulair] 10 mg PO HS@209908/07/23 09/16/23 History Omeprazole [PriLOSEC] 20 mg PO DAILY@0608/07/23 09/16/23 History Melatonin 10 mg PO HS PRN tab 08/11/23 09/16/23 Rx Ammonium Lactate Lotion 1 applic TOPICAL BID 08/23/23 09/16/23 History [Lac-Hydrin 12% Lotion] Metoprolol Tartrate [Lopressor] 37.5 mg PO BID@899,209908/23/23 09/16/23 History allopurinoL 200 mg PO DAILY@0908/23/23 09/16/23 History Nystatin 100,000 Unit/gm Powd 1 applic TOPICAL BID #0 each 09/04/23 09/16/23 Rx [Mycostatin Powder] Artificial Tears-Hypromellose 1 drop BOTH EYES TID PRN 09/16/23 09/16/23 History [Artificial Tear Drops] Budesonide [Pulmicort] 1 mg INHALATION RT-BID@899,209909/16/23 09/16/23 History Cyanocobalamin [Vitamin B-12] 1,000 mcg PO DAILY@0900 09/16/23 09/16/23 History Furosemide [Lasix] 80 mg PO BID@0900,1700 09/16/23 09/16/23 History Gabapentin [Neurontin] 300 mg PO HS@2100 09/16/23 09/16/23 History Rivaroxaban [Xarelto] 15 mg PO DAILY@1700 09/16/23 09/16/23 History Spironolactone [Aldactone] 25 mg PO DAILY@0900 09/16/23 09/16/23 History metOLazone [Zaroxolyn] 2.5 mg PO MOFR 09/16/23 09/16/23 History predniSONE [Deltasone] See Taper PO DIRECTED 09/16/23 09/16/23 History Allergies Allergy/AdvReac Type Severity Reaction Status Date / Time No Known Allergies Allergy Verified 09/16/23 14:12 Physical Exam Vitals: Vital Signs Temp Pulse Resp BP Pulse Ox FiO2 09/17/23 08:05 55 L 09/17/23 07:56 58 L 94 L 30 09/17/23 07:53 30 09/17/23 07:27 52 L 16 125/66 95 09/17/23 04:40 51 L 16 117/86 94 L 09/17/23 03:54 30 09/17/23 01:46 94 20 136/73 97 09/17/23 00:55 30 09/17/23 00:20 54 L 23 136/54 98 09/16/23 21:36 58 L 09/16/23 21:23 60 30 09/16/23 21:03 58 L 20 136/73 96 09/16/23 17:30 54 L 18 126/77 96 09/16/23 17:00 53 L 18 137/75 96 09/16/23 16:30 52 L 18 144/81 95 09/16/23 16:24 30 09/16/23 16:00 58 L 16 125/75 95 09/16/23 15:57 56 L 18 125/75 100 09/16/23 14:58 58 L 09/16/23 14:54 30 09/16/23 14:46 58 L 09/16/23 14:41 30 09/16/23 14:40 30 09/16/23 14:14 24 09/16/23 14:09 98.5 F 60 24 111/65 95 Intake and Output 09/16/23 09/17/23 09/17/23 22:59 06:59 14:59 Output Total 2500 Balance -2500 Output: Urine 2500 Results 09/17/23 05:52 09/17/23 05:52 Cardiac Enzymes 09/16/23 09/16/23 09/17/23 Range/Units 14:31 14:31 05:52 AST 40 30 (17-59) U/L Troponin I <0.012 (0.000-0.034) ng/mL Coagulation 09/16/23 Range/Units 14:31 PT 13.2 H (10.0-12.5) sec APTT 27.5 (22.0-30.0) sec CBC 09/16/23 09/17/23 Range/Units 14:31 05:52 WBC 9.7 4.7 (3.8-10.6) k/uL RBC 3.51 L 3.19 L (4.30-5.90) m/uL Hgb 9.3 L 8.6 L (13.0-17.5) gm/dL Hct 30.8 L 27.9 L (39.0-53.0) % Plt Count 176 147 L (150-450) k/uL Comprehensive Metabolic Panel 09/16/23 09/17/23 Range/Units 14:31 05:52 Sodium 137 138 (137-145) mmol/L Potassium 4.3 4.3 (3.5-5.1) mmol/L Chloride 97 L 94 L (98-107) mmol/L Carbon Dioxide 34 H 36 H (22-30) mmol/L BUN 50 H 56 H (9-20) mg/dL Creatinine 1.14 1.47 H (0.66-1.25) mg/dL Glucose 135 H 131 H (74-99) mg/dL Calcium 8.7 8.9 (8.4-10.2) mg/dL AST 40 30 (17-59) U/L ALT 45 42 (4-49) U/L Alkaline Phosphatase 191 H 163 H (38-126) U/L Total Protein 6.4 6.1 L (6.3-8.2) g/dL Albumin 3.3 L 3.2 L (3.5-5.0) g/dL Current Medications Generic Name Dose Route Start Last Admin Trade Name Freq PRN Reason Stop Dose Admin Acetaminophen 500 mg 09/16/23 19:45 09/16/23 20:59 Acetaminophen Tab 500 Mg Tab PO 500 mg Q6H PRN Administration Pain Albuterol/Ipratropium 3 ml 09/17/23 08:00 09/17/23 07:55 Ipratropium-Albuterol 3 Ml Neb INHALATION 3 ml RT-QID JENNIFER Administration Albuterol/Ipratropium 3 ml 09/17/23 00:19 Ipratropium-Albuterol 3 Ml Neb INHALATION RT-Q2H PRN Shortness Of Breath Or Wheezing Allopurinol 200 mg 09/17/23 09:00 Allopurinol 100 Mg Tab PO DAILY@0900 [facility] Artificial Tears 1 drops 09/16/23 19:45 Artificial Tears-Hypromellose Drops 15 Ml Btl BOTH EYES TID PRN Dry Eye(s) Atorvastatin Calcium 20 mg 09/16/23 21:00 09/16/23 20:55 Atorvastatin 20 Mg Tab PO 20 mg HS@2100 JENNIFER Administration Benzonatate 200 mg 09/16/23 19:45 09/16/23 20:56 Benzonatate 100 Mg Cap PO 200 mg TID PRN Administration Cough Budesonide 1 mg 09/16/23 21:00 09/17/23 07:55 Budesonide 1 Mg/2 Ml Nebu INHALATION 1 mg RT-BID@0900,2100 JENNIFER Administration Cholecalciferol 50 mcg 09/17/23 09:00 Cholecalciferol 25 Mcg (1000 Iu) Tablet PO DAILY@0900 [facility] Cyanocobalamin 1,000 mcg 09/17/23 09:00 Cyanocobalamin 500 Mcg Tab PO DAILY@0900 [facility] Dapagliflozin 10 mg 09/17/23 09:00 Dapagliflozin Propanediol 10 Mg Tablet PO DAILY [facility] Formoterol Fumarate 20 mcg 09/17/23 08:00 09/17/23 07:58 Formoterol Fumarate 20 Mcg/2 Ml Nebu INHALATION Not Given RT-BID [facility] Furosemide 80 mg 09/17/23 16:00 Furosemide 80 Mg Tab PO BID@0900,1600 [facility] Gabapentin 300 mg 09/16/23 21:00 09/16/23 20:55 Gabapentin 300 Mg Cap PO 300 mg HS@2100 [facility] Administration Guaifenesin 200 mg 09/16/23 19:47 Guaifenesin Syrup 100mg/5ml 200 Mg/10 Ml Cup PO Q6HR PRN Cough Piperacillin Sod/Tazobactam 100 mls @ 25 mls/hr 09/16/23 20:00 09/17/23 07:22 Sod 3.375 gm/ Sodium Chloride IVPB 25 mls/hr Q8H [facility] Administration Protocol Melatonin 10 mg 09/16/23 19:45 09/16/23 21:00 Melatonin 5 Mg Tablet PO 10 mg HS PRN Administration Insomnia Methylprednisolone Sodium Succinate 60 mg 09/16/23 20:00 09/17/23 07:23 Methylprednisolone Sod Succi 125 Mg/2 Ml Vial IV 60 mg Q6HR JENNIFER Administration Metolazone 2.5 mg 09/19/23 09:00 Metolazone 2.5 Mg Tab PO MOFR JENNIFER Metoprolol Tartrate 37.5 mg 09/16/23 21:00 09/16/23 21:04 Metoprolol Tartrate 25 Mg Tab PO Not Given BID@0900,2100 [facility] Montelukast Sodium 10 mg 09/16/23 21:00 09/16/23 20:56 Montelukast 10 Mg Tab PO 10 mg HS@2100 [facility] Administration Nystatin 1 applic 09/16/23 21:00 09/16/23 20:56 Nystatin 100,000 Unit/Gm Powd 15 Gm TOPICAL Not Given BID [facility] Protocol Pantoprazole Sodium 40 mg 09/17/23 06:00 Pantoprazole 40 Mg Tablet PO DAILY@0600 [facility] Rivaroxaban 15 mg 09/17/23 17:00 Rivaroxaban 15 Mg Tab PO DAILY@1700 [facility] Protocol Sertraline HCl 100 mg 09/16/23 21:00 09/16/23 20:56 Sertraline 100 Mg Tab PO 100 mg HS@2100 [facility] Administration Spironolactone 25 mg 09/17/23 09:00 Spironolactone 25 Mg Tab PO DAILY@0900 [facility] Tamsulosin HCl 0.4 mg 09/16/23 21:00 09/16/23 20:56 Tamsulosin 0.4 Mg Cap.Er.24h PO 0.4 mg HS@2100 [facility] Administration Intake and Output 09/16/23 09/17/23 09/17/23 22:59 06:59 14:59 Output Total 2500 Balance -2500 Output: Urine 2500 09/17/23 05:52 09/17/23 05:52
[2023-09-17] MEDS: PANTOPRAZOLE 40 MG TABLET PO SCH (09:25)
[2023-09-17] MEDS: METOPROLOL TARTRATE 25 MG TAB PO SCH ×2 (09:26→20:07)
[2023-09-17] MEDS: allopurinoL 100 MG TAB PO SCH (09:26)
[2023-09-17] MEDS: NYSTATIN 100,000 UNIT/GM POWD 15 GM TOPICAL SCH ×3 (09:27→20:10)
[2023-09-17] MEDS: CHOLECALCIFEROL 25 MCG (1000 IU) TABLET PO SCH (12:01)
[2023-09-17] MEDS: SPIRONOLACTONE 25 MG TAB PO SCH (12:02)
[2023-09-17] MEDS: DAPAGLIFLOZIN PROPANEDIOL 10 MG TABLET PO SCH (12:02)
[2023-09-17] MEDS: CYANOCOBALAMIN 500 MCG TAB PO SCH (12:02)
--- NOTE | 2023-09-17 16:41 | P.HPIM ---
History of Present Illness H&P Date: 09/16/23 Chief Complaint: Acute diastolic heart failure with COPD exacerbation HISTORY OF PRESENT ILLNESS: This is a 73-year-old male with a previous medical history significant for hypertension and hypertensive cardiovascular disease, hyperlipidemia, obesity with obstructive sleep apnea and obesity hypoventilation syndrome, chronic diastolic heart failure, asthma, hypothyroidism, anxiety and depressive disorder, peripheral neuropathy. Patient has had multiple hospitalizations for acute on chronic diastolic heart failure and acute exacerbation of COPD. Patient has had multiple hospitalizations for acute on chronic diastolic heart failure, pulmonary edema, acute exacerbation of COPD and acute on chronic respiratory failure. He most recently was discharged to [facility] on 09/11 is stable condition. He had an extended hospitalization and was also worked up for acute kidney injury, thrombocytopenia, anemia with concern for MDS seen by oncology thought to be due to acute reactivity, patient was seen by me at [facility] on the [facility]man few days ago and his medications were adjusted due to increased edema and increased shortness of breath, was increased on Furosemide to 80 mg po bid, added Metolazone 2.5 mg po daily twice a week and he was maintained on Spironolactone , patient was lying down in bed without his CPAP which was dysfunctional I believe and he became unresponsive with low O2 saturation eventhough the patient was DNR patient was placed on CPAP EMS was called and patient was transfeered back to the ER for Acute hypoxic respiratory failure due to acute diastolic heart failure with COPD exacerbation, CXR showed PVC with small right pleural effusion and patient was placed on Furosemide 40 mg IVP Q 8 hours , was placed on Zosyn and Solu-Medrol 60 mg IVP Q6 hours and pulmonary and Cardiology consult and placed patient on BIPAP REVIEW OF SYSTEMS: Constitutional: No documented fever, no chills, no night sweats. No weight change. No weakness, fatigue or lethargy. No daytime sleepiness. HEENT: No headache. No blurred vision or double vision, no loss of vision. No loss of Hearing, no ringing in the ears, no dizziness. No nasal drainage or congestion. No epistaxis. No sore throat. Lungs: positive for shortness of breath, occasional cough, minimal sputum production. No wheezing. Reports dyspnea with activity. Cardiovascular: positive for chest pain, positive for lower extremity edema. No palpitations. positive for paroxysmal nocturnal dyspnea. positive for orthopnea. No lightheadedness or dizziness. No syncopal episodes. Abdominal: Reports abdominal pain. No nausea, vomiting. No diarrhea. No constipation. No bloody or tarry stools reports loss of appetite. Genitourinary: No dysuria, increased frequency, urgency, Lynn catheter in place Musculoskeletal: No myalgias. positive for muscle weakness, positive for gait dysfunction, positive for frequent falls. positive for back pain. No neck pain, bilateral hip pain Integumentary: No wounds, no lesions. No rash or pruritus. No unusual bruising. No change in hair or nails. Neurologic: No aphasia. No facial droop. No change in mentation. No head injury. No headache. No paralysis. No paresthesia. Psychiatric: No depression. No anxiety. No mood swings. Endocrine: No abnormal blood sugars. No weight change. PAST MEDICAL HISTORY: Hypertension and hypertensive cardiovascular disease. Hyperlipidemia. Hypothyroidism. Obesity with obstructive sleep apnea and obesity hypoventilation syndrome Moderate persistent asthma. Enlarged prostate. Anxiety. Chronic diastolic heart failure. PAST SURGICAL HISTORY: Left knee replacement Circumcision Colonoscopy SOCIAL HISTORY: She used to smoke about pack every day he smoked for many years and quit about 15 years ago, he denies any alcohol ingestion, no drug use or abuse. FAMILY HISTORY: Father at age of 61 from [place] mother at age of 70 and she had osteoarthritis patient had 3 brothers one from lung cancer one with CAD and 1 Parkinson disease and patient had 5 sisters all have passed PHYSICAL EXAMINATION: General: 73-year-old male lying down in bed in moderate respiratory distress HEENT: Head is atraumatic, normocephalic, pupils were equal round reactive to light and recommendation, extraocular muscle movement were intact, sclera nonicteric, conjunctivae were pale, mucous membranes of the mouth are somewhat dry. Neck: Supple, no JVP, normal carotid upstroke bilaterally, no lymphadenopathy. Chest: Decreased breath sounds at the bases, few rhonchi, mild expiratory wheezes, no chest wall tenderness, mild intercostal retractions. Heart: First heart sound is normal, second heart sound is normal, there is systolic ejection murmur 2/6 located in the left sternal border. Abdomen: Soft, nontender, nondistended, positive bowel sounds, obese. Extremities: There is +2 edema no calf tenderness DP +2 bilaterally, there is bilateral scabbed lesions in both shins free Neurologic examination: Patient is awake alert and oriented X 3, cranial nerves II-12 appear grossly intact, muscle power were 4 out of 5 in upper extremities and 3/5 in bilateral lower extremities ASSESSMENT AND PLAN: 1. Acute hypoxemic respiratory failure due to acute on chronic diastolic heart failure and acute exacerbation of COPD wit RAMYA and OHS. patient was started on Lasix 40 mg IV push every 8 hours, monitor input and output and daily weight, continue spironolactone 25 mg orally once every day, metoprolol 37.5 mg orally twice every day, Pulmicort 1 mg twice daily, DuoNeb treatments every 4 hours, singular 10 mg at bedtime, Solu-Medrol 60 mg IVP Q 6 hours and Zosyn 3.375 gr IVPB Q8 hours cardiology consultation and pulmonary consultation appreciated. 2. COPD/moderate persistent asthma exacerbation with chronic hypoxemic respiratory failure continue oxygen support continue DuoNeb 3 mg nebulization 4 times every day, Pulmicort 1 mg twice daily, O2 support along with Zosyn 3. Paroxysmal atrial fibrillation/ Flutter. Continue patient on metoprolol 37.5 mg orally twice every day, on Xarelto 15 mg orally once every day 4. Hypertension and hypertensive cardiovascular disease. Continue patient on metoprolol 37.5 mg orally twice every day, monitor the patient blood pressure very closely. 5. Hyperlipidemia. Continue patient on atorvastatin 20 mg orally once every day, monitor lipid panel, keep LDL 55-70. 6. Enlarged prostate. Continue patient on tamsulosin 0.4 mg orally once every day. Patient has Lynn catheter. 7. Anxiety disorder. Continue patient on sertraline 100 mg orally once every day. 8. Neuropathy. Continue patient on gabapentin 300 mg at bedtime. 9. DVT prophylaxis. Continue Xarelto 15 mg po daily 10. GI prophylaxis. Continue patient on Protonix 40 mg orally once every day. 11. Admit to inpatient. Estimate a length of stay 2 midnights. 13. oncology social worker consult. Past Medical History Past Medical History: Asthma, Chest Pain / Angina, GERD/Reflux, Hyperlipidemia, Hypertension, Osteoarthritis (OA), Pneumonia, Sleep Apnea/CPAP/BIPAP Additional Past Medical History / Comment(s): uses oxygen at night 2L, gout, in wheelchair or walker due to pain in left leg, poor circulation in legs History of Any Multi-Drug Resistant Organisms: None Reported Past Surgical History: Orthopedic Surgery, Tonsillectomy Additional Past Surgical History / Comment(s): LEFT WRIST ORIF, LEFT KNEE REPLACEMENT, bilateral cataract surgery Past Anesthesia/Blood Transfusion Reactions: No Reported Reaction Additional Past Anesthesia/Blood Transfusion Reaction / Comment(s): . Past Psychological History: Depression Smoking Status: Former smoker Past Alcohol Use History: None Reported Past Drug Use History: None Reported - Past Family History Mother Family Medical History: Congestive Heart Failure (CHF), Osteoarthritis (OA) Father Additional Family Medical History / Comment(s): FROM [place] Brother(s) Family Medical History: Cancer Additional Family Medical History / Comment(s): . Sister(s) Family Medical History: Deep Vein Thrombosis (DVT) Medications and Allergies Home Medications Medication Instructions Recorded Confirmed Type Sertraline [Zoloft] 100 mg PO HS@209904/04/17 09/16/23 History Atorvastatin [Lipitor] 20 mg PO HS@209907/14/19 09/16/23 History Tamsulosin [Flomax] 0.4 mg PO HS@209907/14/19 09/16/23 History Ipratropium-Albuterol Nebulize 3 ml INHALATION RT-Q6H@00,06,12,18 08/19/19 09/16/23 History [Duoneb 0.5 mg-3 mg/3 ml Soln] Acetaminophen Tab [Tylenol] 500 mg PO Q6H PRN 03/26/23 09/16/23 History Cholecalciferol [Vitamin D3 (25 50 mcg PO DAILY@0900 03/26/23 09/16/23 History Mcg = 1000 Iu)] Benzonatate [Tessalon Perles] 200 mg PO TID PRN cap 07/17/23 09/16/23 Rx Montelukast [Singulair] 10 mg PO HS@209908/07/23 09/16/23 History Omeprazole [PriLOSEC] 20 mg PO DAILY@0600 08/07/23 09/16/23 History Melatonin 10 mg PO HS PRN tab 08/11/23 09/16/23 Rx Ammonium Lactate Lotion 1 applic TOPICAL BID 08/23/23 09/16/23 History [Lac-Hydrin 12% Lotion] Metoprolol Tartrate [Lopressor] 37.5 mg PO BID@0900,2100 08/23/23 09/16/23 History allopurinoL 200 mg PO DAILY@0900 08/23/23 09/16/23 History Nystatin 100,000 Unit/gm Powd 1 applic TOPICAL BID #0 each 09/04/23 09/16/23 Rx [Mycostatin Powder] Artificial Tears-Hypromellose 1 drop BOTH EYES TID PRN 09/16/23 09/16/23 History [Artificial Tear Drops] Budesonide [Pulmicort] 1 mg INHALATION RT-BID@0900,2100 09/16/23 09/16/23 History Cyanocobalamin [Vitamin B-12] 1,000 mcg PO DAILY@0900 09/16/23 09/16/23 History Furosemide [Lasix] 80 mg PO BID@0900,1700 09/16/23 09/16/23 History Gabapentin [Neurontin] 300 mg PO HS@2100 09/16/23 09/16/23 History Rivaroxaban [Xarelto] 15 mg PO DAILY@1700 09/16/23 09/16/23 History Spironolactone [Aldactone] 25 mg PO DAILY@0900 09/16/23 09/16/23 History metOLazone [Zaroxolyn] 2.5 mg PO MOFR 09/16/23 09/16/23 History predniSONE [Deltasone] See Taper PO DIRECTED 09/16/23 09/16/23 History Allergies Allergy/AdvReac Type Severity Reaction Status Date / Time No Known Allergies Allergy Verified 09/16/23 14:12 Physical Exam Vitals: Vital Signs Temp Pulse Resp BP Pulse Ox FiO2 09/16/23 17:30 54 L 18 126/77 96 09/16/23 17:00 53 L 18 137/75 96 09/16/23 16:30 52 L 18 144/81 95 09/16/23 16:24 30 09/16/23 16:00 58 L 16 125/75 95 09/16/23 15:57 56 L 18 125/75 100 09/16/23 14:58 58 L 09/16/23 14:54 30 09/16/23 14:46 58 L 09/16/23 14:41 30 09/16/23 14:40 30 09/16/23 14:14 24 09/16/23 14:09 98.5 F 60 24 111/65 95 Intake and Output 09/16/23 09/16/23 09/16/23 06:59 14:59 22:59 Other: Weight 122.47 kg Results CBC & Chem 7: 09/17/23 05:52 09/17/23 05:52 Labs: Abnormal Lab Results - Last 24 Hours (Table) 09/16/23 09/16/23 09/16/23 Range/Units 14:23 14:31 14:31 RBC 3.51 L (4.30-5.90) m/uL Hgb 9.3 L (13.0-17.5) gm/dL Hct 30.8 L (39.0-53.0) % MCHC 30.4 L (31.0-37.0) g/dL RDW 17.6 H (11.5-15.5) % Neutrophils # 8.8 H (1.3-7.7) k/uL Lymphocytes # 0.4 L (1.0-4.8) k/uL PT 13.2 H (10.0-12.5) sec INR 1.3 H (<1.2) VBG pH 7.42 H (7.31-7.41) VBG pCO2 57 H (37-51) mmHg VBG HCO3 36 H (24-28) mmol/L Chloride (98-107) mmol/L Carbon Dioxide (22-30) mmol/L BUN (9-20) mg/dL Glucose (74-99) mg/dL Alkaline Phosphatase (38-126) U/L Albumin (3.5-5.0) g/dL 09/16/23 Range/Units 14:31 RBC (4.30-5.90) m/uL Hgb (13.0-17.5) gm/dL Hct (39.0-53.0) % MCHC (31.0-37.0) g/dL RDW (11.5-15.5) % Neutrophils # (1.3-7.7) k/uL Lymphocytes # (1.0-4.8) k/uL PT (10.0-12.5) sec INR (<1.2) VBG pH (7.31-7.41) VBG pCO2 (37-51) mmHg VBG HCO3 (24-28) mmol/L Chloride 97 L (98-107) mmol/L Carbon Dioxide 34 H (22-30) mmol/L BUN 50 H (9-20) mg/dL Glucose 135 H (74-99) mg/dL Alkaline Phosphatase 191 H (38-126) U/L Albumin 3.3 L (3.5-5.0) g/dL
[2023-09-17] MEDS: FUROSEMIDE 80 MG TAB PO SCH (17:27)
[2023-09-17] MEDS: RIVAROXABAN 15 MG TAB PO SCH (17:49)
[2023-09-17] MEDS: NYSTATIN 100,000 UNIT/ML SUSP 500,000 UNIT/5 ML CUP PO SCH (18:16)
[2023-09-17] MEDS: SERTRALINE 100 MG TAB PO SCH (20:06)
[2023-09-17] MEDS: MONTELUKAST 10 MG TAB PO SCH (20:06)
[2023-09-17] MEDS: ATORVASTATIN 20 MG TAB PO SCH (20:06)
[2023-09-17] MEDS: MELATONIN 5 MG TABLET PO PRN (20:07)
[2023-09-17] MEDS: TAMSULOSIN 0.4 MG CAP.ER.24H PO SCH (20:07)
[2023-09-17] MEDS: GABAPENTIN 300 MG CAP PO SCH (20:07)
[2023-09-17] MEDS: BENZONATATE 100 MG CAP PO PRN (20:07)
[2023-09-17] MEDS: ACETAMINOPHEN TAB 500 MG TAB PO PRN (20:08)
[2023-09-18] MEDS: NYSTATIN 100,000 UNIT/ML SUSP 500,000 UNIT/5 ML CUP PO SCH ×5 (06:26→21:20)
[2023-09-18] MEDS: PIPERACILLIN-TAZOBACTAM 3.375 GM in SODIUM CHLORIDE 0.9% 100 ML IVPB SCH (06:26)
[2023-09-18] MEDS: PANTOPRAZOLE 40 MG TABLET PO SCH (06:26)
[2023-09-18] MEDS: methylPREDNISolone SOD SUCCI 125 MG/2 ML VIAL IV SCH (06:26)
[2023-09-18 06:42] LABS: African American GFR (CKD) 48 (>60 ml/min/1.73 sqM); Anion Gap 8 mmol/L; Blood Urea Nitrogen 61 mg/dL (9-20); Calcium 8.5 mg/dL (8.4-10.2); Carbon Dioxide 36 mmol/L (22-30); Chloride 93 mmol/L (98-107); Glucose 125 mg/dL (74-99); Non-African American GFR(CKD) 41 (>60 ml/min/1.73 sqM); Potassium 3.2 mmol/L (3.5-5.1); Sodium 137 mmol/L (137-145)
--- NOTE | 2023-09-18 07:39 | P.PN ---
Subjective Progress Note Date: 09/17/23 HISTORY OF PRESENT ILLNESS: This is a 73-year-old male with a previous medical history significant for hypertension and hypertensive cardiovascular disease, hyperlipidemia, obesity with obstructive sleep apnea and obesity hypoventilation syndrome, chronic diastolic heart failure, asthma, hypothyroidism, anxiety and depressive disorder, peripheral neuropathy. Patient has had multiple hospitalizations for acute on chronic diastolic heart failure and acute exacerbation of COPD. Patient has had multiple hospitalizations for acute on chronic diastolic heart failure, pulmonary edema, acute exacerbation of COPD and acute on chronic respiratory failure. He most recently was discharged to [facility] on 09/11 is stable condition. He had an extended hospitalization and was also worked up for acute kidney injury, thrombocytopenia, anemia with concern for MDS seen by oncology thought to be due to acute reactivity, patient was seen by me at [facility] on the [facility] few days ago and his medications were adjusted due to increased edema and increased shortness of breath, was increased on Furosemide to 80 mg po bid, added Metolazone 2.5 mg po daily twice a week and he was maintained on Spironolactone , patient was lying down in bed without his CPAP which was dysfunctional I believe and he became unresponsive with low O2 saturation eventhough the patient was DNR patient was placed on CPAP EMS was called and patient was transfeered back to the ER for Acute hypoxic respiratory failure due to acute diastolic heart failure with COPD exacerbation, CXR showed PVC with small right pleural effusion and patient was placed on Furosemide 40 mg IVP Q 8 hours , was placed on Zosyn and Solu-Medrol 60 mg IVP Q6 hours and pulmonary and Cardiology consult and placed patient on BIPAP 09/17: Patient was initially started on IV Lasix 40 mg every 8 hours and has been transitioned to oral Lasix 80 mg twice daily by cardiology. Patient is also on IV Solu-Medrol 60 mg every 6 hours for COPD exacerbation. Repeat blood work today reveals an increase in creatinine function with BUN 56 creatinine 1.47. Blood sugar 163. Pro-calcitonin 0.09. Hemoglobin is 8.6. Patient has been afebrile, heart rate in the 60s, blood pressure 156/65, pulse ox 96% on 3 L nasal cannula. Patient has been resumed on his home medications. He is followed by both pulmonary medicine and cardiology. REVIEW OF SYSTEMS: Constitutional: No documented fever, no chills, no night sweats. No weight change. No weakness, fatigue or lethargy. No daytime sleepiness. HEENT: No headache. No blurred vision or double vision, no loss of vision. No loss of Hearing, no ringing in the ears, no dizziness. No nasal drainage or co ngestion. No epistaxis. No sore throat. Lungs: positive for shortness of breath-improving, occasional cough, minimal sputum production. No wheezing. Reports dyspnea with activity. Cardiovascular: positive for chest pain, positive for lower extremity edema. No palpitations. positive for paroxysmal nocturnal dyspnea. positive for orthopnea. No lightheadedness or dizziness. No syncopal episodes. Abdominal: Reports abdominal pain. No nausea, vomiting. No diarrhea. No constipation. No bloody or tarry stools reports loss of appetite. Genitourinary: No dysuria, increased frequency, urgency, Lynn catheter in place Musculoskeletal: No myalgias. positive for muscle weakness, positive for gait dysfunction, positive for frequent falls. positive for back pain. No neck pain, bilateral hip pain Integumentary: No wounds, no lesions. No rash or pruritus. No unusual bruising. No change in hair or nails. Neurologic: No aphasia. No facial droop. No change in mentation. No head injury. No headache. No paralysis. No paresthesia. Psychiatric: No depression. No anxiety. No mood swings. Endocrine: No abnormal blood sugars. No weight change. PHYSICAL EXAMINATION: General: 73-year-old male lying down in bed in moderate respiratory distress HEENT: Head is atraumatic, normocephalic, pupils were equal round reactive to light and recommendation, extraocular muscle movement were intact, sclera nonicteric, conjunctivae were pale, mucous membranes of the mouth are somewhat dry. Neck: Supple, no JVP, normal carotid upstroke bilaterally, no lymphadenopathy. Chest: Decreased breath sounds at the bases, few rhonchi, mild expiratory wheezes, no chest wall tenderness, mild intercostal retractions. Heart: First heart sound is normal, second heart sound is normal, there is systolic ejection murmur 2/6 located in the left sternal border. Abdomen: Soft, nontender, nondistended, positive bowel sounds, obese. Extremities: There is +2 edema no calf tenderness DP +2 bilaterally, there is bilateral scabbed lesions in both shins free Neurologic examination: Patient is awake alert and oriented X 3, cranial nerves II-12 appear grossly intact, muscle power were 4 out of 5 in upper extremities and 3/5 in bilateral lower extremities ASSESSMENT AND PLAN: 1. Acute hypoxemic respiratory failure due to acute on chronic diastolic heart failure and acute exacerbation of COPD wit RAMYA and OHS. IV Lasix has been transitioned to oral 80 mg twice daily by cardiology. Continue to monitor input and output and daily weight, continue spironolactone 25 mg orally once every day, metoprolol 37.5 mg orally twice every day, Pulmicort 1 mg twice daily, DuoNeb treatments every 4 hours, singular 10 mg at bedtime, Solu-Medrol 60 mg IVP Q 6 hours and Zosyn 3.375 gr IVPB Q8 hours cardiology consultation and pulmonary consultation appreciated. 2. COPD/moderate persistent asthma exacerbation with chronic hypoxemic respiratory failure continue oxygen support continue DuoNeb 3 mg nebulization 4 times every day, Pulmicort 1 mg twice daily, O2 support along with Zosyn and So sandra-Medrol. 3. Paroxysmal atrial fibrillation/ Flutter. Continue patient on metoprolol 37.5 mg orally twice every day, on Xarelto 15 mg orally once every day 4. Hypertension and hypertensive cardiovascular disease. Continue patient on metoprolol 37.5 mg orally twice every day, monitor the patient blood pressure very closely. 5. Hyperlipidemia. Continue patient on atorvastatin 20 mg orally once every day, monitor lipid panel, keep LDL 55-70. 6. Enlarged prostate. Continue patient on tamsulosin 0.4 mg orally once every day. Patient has Lynn catheter. 7. Anxiety disorder. Continue patient on sertraline 100 mg orally once every day. 8. Neuropathy. Continue patient on gabapentin 300 mg at bedtime. 9. DVT prophylaxis. Continue Xarelto 15 mg po daily 10. GI prophylaxis. Continue patient on Protonix 40 mg orally once every day. 11. social media assistant consult. Impression and plan of care have been directed as dictated by the signing physician. Concepción Perkins nurse practitioner acting as scribe for signing physician. Objective - Vital Signs Vital signs: Vital Signs Temp 98.5 F 09/16/23 14:09 Pulse 61 09/17/23 11:27 Resp 16 09/17/23 10:00 BP 156/65 09/17/23 10:00 Pulse Ox 96 09/17/23 10:00 FiO2 30 09/17/23 07:56 Intake & Output 09/16/23 09/17/23 09/17/23 18:59 06:59 18:59 Output Total 2500 Balance -2500 Weight 122.47 kg Output: Urine 2500 - Labs CBC & Chem 7: 09/17/23 05:52 09/18/23 05:58 Labs: Abnormal Lab Results - Last 24 Hours (Table) 09/16/23 09/16/23 09/16/23 Range/Units 14:23 14:31 14:31 RBC 3.51 L (4.30-5.90) m/uL Hgb 9.3 L (13.0-17.5) gm/dL Hct 30.8 L (39.0-53.0) % MCHC 30.4 L (31.0-37.0) g/dL RDW 17.6 H (11.5-15.5) % Plt Count (150-450) k/uL Neutrophils # 8.8 H (1.3-7.7) k/uL Lymphocytes # 0.4 L (1.0-4.8) k/uL PT 13.2 H (10.0-12.5) sec INR 1.3 H (<1.2) VBG pH 7.42 H (7.31-7.41) VBG pCO2 57 H (37-51) mmHg VBG HCO3 36 H (24-28) mmol/L Chloride (98-107) mmol/L Carbon Dioxide (22-30) mmol/L BUN (9-20) mg/dL Creatinine (0.66-1.25) mg/dL Glucose (74-99) mg/dL Alkaline Phosphatase (38-126) U/L Total Protein (6.3-8.2) g/dL Albumin (3.5-5.0) g/dL 09/16/23 09/17/23 09/17/23 Range/Units 14:31 05:52 05:52 RBC 3.19 L (4.30-5.90) m/uL Hgb 8.6 L (13.0-17.5) gm/dL Hct 27.9 L (39.0-53.0) % MCHC 30.8 L (31.0-37.0) g/dL RDW 17.5 H (11.5-15.5) % Plt Count 147 L (150-450) k/uL Neutrophils # (1.3-7.7) k/uL Lymphocytes # 0.5 L (1.0-4.8) k/uL PT (10.0-12.5) sec INR (<1.2) VBG pH (7.31-7.41) VBG pCO2 (37-51) mmHg VBG HCO3 (24-28) mmol/L Chloride 97 L 94 L (98-107) mmol/L Carbon Dioxide 34 H 36 H (22-30) mmol/L BUN 50 H 56 H (9-20) mg/dL Creatinine 1.47 H (0.66-1.25) mg/dL Glucose 135 H 131 H (74-99) mg/dL Alkaline Phosphatase 191 H 163 H (38-126) U/L Total Protein 6.1 L (6.3-8.2) g/dL Albumin 3.3 L 3.2 L (3.5-5.0) g/dL
[2023-09-18] MEDS: IPRATROPIUM-ALBUTEROL 3 ML NEB INHALATION SCH ×4 (07:59→20:19)
[2023-09-18] MEDS: SYMBICORT 160-4.5 MCG INHALER INHALATION SCH ×2 (07:59→20:19)
--- NOTE | 2023-09-18 08:49 | P.PN ---
Subjective Progress Note Date: 09/18/23 HISTORY OF PRESENT ILLNESS: This is a 73-year-old male with a past medical history significant for minimal coronary artery disease, congestive heart failure, hypertension, hyperlipidemia, COPD, paroxysmal atrial fibrillation, obstructive sleep apnea, and chronic hypoxic respiratory failure. Patient follows in the office with Dr. Ngo. We have been asked to see the patient in consultation for congestive heart failure. Patient examined at the bedside in the emergency room. It is noted that the patient was just admitted to the hospital from 09/07/2023 until 09/11/2023 secondary to CHF. He was discharged to [facility] in stable condition. Apparently, yesterday the patient became hypoxic at his ECF facility and became somewhat unresponsive. EMS was called and he was brought to the hospital for further evaluation. The patient was placed on IV Lasix and BiPAP. He is awake and a lert this morning. He denies any chest pain or pressure. He denies any shortness of breath. Vital signs are stable. * EKG reveals sinus bradycardia with no signs of acute ischemia * Chest xray clinical correlation for pulmonary edema. Small right pleural effusion. * Laboratory data: W BC 4.7. Hemoglobin 8.6. Platelet count 147. Sodium 138. Potassium 4.3. BUN 56. Creatinine 1.47. Troponin negative 1. ProBNP 2680. * Current home cardiac medications include spironolactone 25 mg daily, darlene rvastatin 20 mg IV, Zaroxolyn 2.5 mg Friday and Friday, Xarelto 15 mg daily, Lasix 80 mg twice a day, metoprolol tartrate 37.5 mg twice a day * Most recent echocardiogram obtained in August 2023 revealing ejection fraction 50-55% * Cardiac catheterization history: October 2016 revealing minimal coronary artery disease 09/18 Patient is seen today on the MedSur floor. Yesterday IV Lasix was transitioned to oral 80 mg twice daily and he was maintained on metolazone 2.5 mg twice a week and Aldactone. Repeat lab work today reveals worsening renal function with BUN 61 and creatinine 1.63 most likely due to the IV diuretics. Patient denies any new concerns today. Shortness of breath is at baseline. Edema in the lower legs is at baseline. PHYSICAL EXAM: VITAL SIGNS: Reviewed. GENERAL: Well-developed in no acute distress. HEENT: Head is normocephalic. Pupils are equal, round. Sclerae anicteric. Mucous membranes of the mouth are moist. Neck supple. No JVD or thyromegaly LUNGS: Respirations even and unlabored. Lungs diminished with expiratory wheezing HEART: Regular rate and rhythm. S1 and S2 heard. ABDOMEN: Soft. Nondistended. Nontender. EXTREMITIES: Normal range of motion. No clubbing or cyanosis. Peripheral pulses intact. 1+ bilateral lower extremity edema with wraps noted. NEUROLOGIC: Awake and alert. Oriented x 3. ASSESSMENT: Acute on chronic hypoxic respiratory failure, currently on BiPAP Mild exacerbation of chronic heart failure with preserved systolic function, 50- 55% Minimal coronary artery disease, per cardiac catheterization in 2016 Acute kidney injury Acute COPD exacerbation Paroxysmal atrial fibrillation Hypertension Hyperlipidemia Chronic anemia PLAN: No need to repeat echocardiogram as this was performed in August 2023 Resume home cardiac medications Continue oral Lasix 80 mg twice a day Continue Farxiga 10mg daily Daily weights, accurate I&O, and monitoring of kidney function Cardiology will sign off this case and follow on an as-needed basis. Please reconsult for any new concerns. Patient may follow-up in the office in one to [address] Ngo. Nurse practitioner note has been reviewed by physician. Signing provider agrees with the documented findings, assessment, and plan of care. Objective - Vital Signs Vital signs: Vital Signs Temp 97.8 F 09/18/23 07:32 Pulse 64 09/18/23 08:08 Resp 18 09/18/23 07:32 BP 102/57 09/18/23 07:32 Pulse Ox 96 09/18/23 07:59 FiO2 30 09/18/23 06:08 Intake & Output 09/17/23 09/18/23 09/18/23 18:59 06:59 18:59 Intake Total 1000 Output Total 3000 1000 Balance -3000 0 Weight 122.47 kg Intake: Oral 1000 Output: Urine 3000 1000 Other: Voiding Method Indwelling Catheter # Bowel Movements 1 1 - Labs CBC & Chem 7: 09/17/23 05:52 09/18/23 05:58 Labs: Abnormal Lab Results - Last 24 Hours (Table) 09/18/23 Range/Units 05:58 Potassium 3.2 L (3.5-5.1) mmol/L Chloride 93 L (98-107) mmol/L Carbon Dioxide 36 H (22-30) mmol/L BUN 61 H (9-20) mg/dL Creatinine 1.63 H (0.66-1.25) mg/dL Glucose 125 H (74-99) mg/dL Microbiology - Last 24 Hours (Table) 09/16/23 20:20 Blood Culture - Preliminary Blood
--- NOTE | 2023-09-18 08:51 | P.PN ---
Subjective Progress Note Date: 09/18/23 I am seeing this patient in consultation again 09/17/2023 in the emergency room after he was readmitted for acute on chronic hypoxemic and hypercapnic respiratory failure requiring BiPAP. Patient is a 73-year-old white male who resides at a local [facility]. His past medical history significant for congestive h eart failure, asthma/COPD, obstructive sleep apnea with CPAP, chronic oxygen dependence, hyperlipidemia, hypertension, paroxysmal atrial fibrillation, chronic leg wounds, among other things. Patient was discharged 6 days ago for similar symptoms. Patient was reportedly at his retirement, when staff noticed him to be apneic. They did attempt to put him back on his home CPAP device. Patient reportedly never lost pulse and no CPR was performed. Patient was transferred to the emergency department by EMS yesterday afternoon. Patient is currently sitting up in bed, on BiPAP with settings of 12/5 in an FiO2 30%, in no acute distress. He is alert and oriented. No signs of hypercapenic enceph alopathy. He does say that he has been short of breath since his recent hospital discharge. He also admits some increased lower extremity edema. He states that he has some substernal chest tightness without radiation. Denies any heart palpitations, lightheadedness. He denies any fevers, chills, cough. Chest x-ray on arrival demonstrated pulmonary edema and a small right pleural effusion. Patient has been started on Lasix 40 mg 3 times a day. CBC on arrival showed a WBC count of 9.7, hemoglobin 9.3, hematocrit 30.8, platelets 176. VBG done on arrival showed a pCO2 of 37, and pH of 7.42. BMP on arrival shows sodium 137, potassium 4.3, chloride 97, serum bicarbonate 34, BUN 50, creatinine 1.14, glucose 135. Lactic acid level was not elevated. Troponin less than 0.012. Heart rhythm shows sinus bradycardia with a rate of 59 bpm and no acute ischemic changes. NT proBNP was elevated at 2680. Patient is afebrile. Patient was empirically placed on Zosyn in the emergency room. Patient is to be admitted to cardiac stepdown unit once bed available. The patient is seen today 09/18/2023 in follow-up on the regular medical floor. He is currently sitting up in bed. Awake and alert in no acute distress. He states he is doing quite a bit better today. Less coughing. Less congested. Currently maintaining good O2 saturations in the 90s on 2 L/m per nasal cannula. He did utilize BiPAP 12/5 and 30% FiO2 throughout the night. Blood culture reveals no growth to date. Sodium 137. Potassium 3.2. Bicarb 36. BUN 61. Creatinine 1.63. Glucose 125. His pro calcitonin was 0.09. He is currently on Zosyn. Remains on DuoNeb inhalations, Pulmicort and Perforomist inhalations, Singulair Solu-Medrol. Lee on oral diuretics. Currently in a -3 L balance. Objective - Vital Signs Vital signs: Vital Signs Temp 97.8 F 09/18/23 07:32 Pulse 64 09/18/23 08:08 Resp 18 09/18/23 07:32 BP 102/57 09/18/23 07:32 Pulse Ox 96 09/18/23 07:59 FiO2 30 09/18/23 06:08 Intake & Output 09/17/23 09/18/23 09/18/23 18:59 06:59 18:59 Intake Total 1000 Output Total 3000 1000 Balance -3000 0 Weight 122.47 kg Intake: Oral 1000 Output: Urine 3000 1000 Other: Voiding Method Indwelling Catheter # Bowel Movements 1 1 - Exam GENERAL EXAM: Alert pleasant 73-year-old morbidly obese male, on 2 L nasal cannula, comfortable in no apparent distress. HEAD: Normocephalic and atraumatic EYES: Normal reaction of pupils, equal size. NOSE: Clear with pink turbinates. THROAT: No erythema or exudates. NECK: No masses, no JVD. CHEST: No chest wall deformity. LUNGS: Equal air entry with bibasilar inspiratory crackles. Mild expiratory wheezes heard throughout. CVS: S1 and S2 normal with no audible murmur, regular rhythm. No extra heart sounds ABDOMEN obese abdomen, no hepatosplenomegaly, active bowel sounds, no guarding or rigidity. SPINE: No scoliosis or deformity SKIN: right lower extremity partial thickness ulceration, legs are wrapped with Toribio bandages CENTRAL NERVOUS SYSTEM: No focal deficits, tone is normal in all 4 extremities. EXTREMITIES: There is bilateral lower extremity 3-4+ pitting edema. No c lubbing, or cyanosis. Peripheral pulses are intact. - Labs CBC & Chem 7: 09/17/23 05:52 09/18/23 05:58 Labs: Abnormal Lab Results - Last 24 Hours (Table) 09/18/23 Range/Units 05:58 Potassium 3.2 L (3.5-5.1) mmol/L Chloride 93 L (98-107) mmol/L Carbon Dioxide 36 H (22-30) mmol/L BUN 61 H (9-20) mg/dL Creatinine 1.63 H (0.66-1.25) mg/dL Glucose 125 H (74-99) mg/dL Microbiology - Last 24 Hours (Table) 09/16/23 20:20 Blood Culture - Preliminary Blood Assessment and Plan Assessment: Acute exacerbation of diastolic CHF, chest x-ray shows cardiomegaly, pulmonary edema, and right sided pleural effusion. Echocardiogram from 08/25/23 showed ejection fraction of left ventricle in the order of 50-55%, and otherwise was a limited exam Acute exacerbation of chronic bronchial asthma/COPD Acute on chronic hypoxemic and hypercapnic respiratory failure, currently on BiPAP Paroxysmal atrial fibrillation., currently in sinus rhythm, anticoagulation with Xarelto Chronic kidney disease stage III Anemia of chronic disease. Obstructive sleep apnea syndrome, maintained on CPAP. Chronic venous stasis and right lower extremity wounds Benign essential hypertension History of hyperlipidemia Morbid obesity, with a BMI of 44.9 kg/m Plan: The patient was seen and evaluated Medications and labs reviewed Procalcitonin within normal limits Discontinue Zosyn Discontinue Solu-Medrol Initiate a prednisone taper starting at 30 mg daily Discontinue Pulmicort and Perforomist inhalations Initiate Symbicort He is cleared for transfer back to [facility] from the pulmonary standpoint This patient was seen independently by the nurse practitioner I have personally seen and examined the patient, performed the documentation and the assessment and plan as written. Number of minutes spent on the visit: 22.
[2023-09-18] MEDS: CHOLECALCIFEROL 25 MCG (1000 IU) TABLET PO SCH (10:32)
[2023-09-18] MEDS: predniSONE 10 MG TAB PO SCH (10:32)
[2023-09-18] MEDS: FUROSEMIDE 80 MG TAB PO SCH ×2 (10:33→16:29)
[2023-09-18] MEDS: METOPROLOL TARTRATE 25 MG TAB PO SCH ×2 (10:33→21:20)
[2023-09-18] MEDS: CYANOCOBALAMIN 500 MCG TAB PO SCH (10:33)
[2023-09-18] MEDS: DAPAGLIFLOZIN PROPANEDIOL 10 MG TABLET PO SCH (10:33)
[2023-09-18] MEDS: SPIRONOLACTONE 25 MG TAB PO SCH (10:33)
[2023-09-18] MEDS: allopurinoL 100 MG TAB PO SCH (10:33)
[2023-09-18] MEDS: NYSTATIN 100,000 UNIT/GM POWD 15 GM TOPICAL SCH ×2 (10:34→21:20)
[2023-09-18] MEDS ORDERED: POTASSIUM CHLORIDE ER 20 MEQ TAB.ER PO STA (11:07)
[2023-09-18 12:00] VITALS: BMI 44.9
--- NOTE | 2023-09-18 13:59 | P.PN ---
Subjective Progress Note Date: 09/18/23 HISTORY OF PRESENT ILLNESS: This is a 73-year-old male with a previous medical history significant for hypertension and hypertensive cardiovascular disease, hyperlipidemia, obesity with obstructive sleep apnea and obesity hypoventilation syndrome, chronic diastolic heart failure, asthma, hypothyroidism, anxiety and depressive disorder, peripheral neuropathy. Patient has had multiple hospitalizations for acute on chronic diastolic heart failure and acute exacerbation of COPD. Patient has had multiple hospitalizations for acute on chronic diastolic heart failure, pulmonary edema, acute exacerbation of COPD and acute on chronic respiratory failure. He most recently was discharged to [facility] on 09/11 is stable condition. He had an extended hospitalization and was also worked up for acute kidney injury, thrombocytopenia, anemia with concern for MDS seen by oncology thought to be due to acute reactivity, patient was seen by me at [facility] on the hartman few days ago and his medications were adjusted due to increased edema and increased shortness of breath, was increased on Furosemide to 80 mg po bid, added Metolazone 2.5 mg po daily twice a week and he was maintained on Spironolactone , patient was lying down in bed without his CPAP which was dysfunctional I believe and he became unresponsive with low O2 saturation eventhough the patient was DNR patient was placed on CPAP EMS was called and patient was transfeered back to the ER for Acute hypoxic respiratory failure due to acute diastolic heart failure with COPD exacerbation, CXR showed PVC with small right pleural effusion and patient was placed on Furosemide 40 mg IVP Q 8 hours , was placed on Zosyn and Solu-Medrol 60 mg IVP Q6 hours and pulmonary and Cardiology consult and placed patient on BIPAP 09/17: Patient was initially started on IV Lasix 40 mg every 8 hours and has been transitioned to oral Lasix 80 mg twice daily by cardiology. Patient is also on IV Solu-Medrol 60 mg every 6 hours for COPD exacerbation. Repeat blood work today reveals an increase in creatinine function with BUN 56 creatinine 1.47. Blood sugar 163. Pro-calcitonin 0.09. Hemoglobin is 8.6. Patient has been afebrile, heart rate in the 60s, blood pressure 156/65, pulse ox 96% on 3 L nasal cannula. Patient has been resumed on his home medications. He is followed by both pulmonary medicine and cardiology. 09/18: patient is seen today on the MedSur floor. He has been seen by cardiology this morning and plan is to continue current medications. Repeat blood work reveals sodium 137, potassium 3.2, and will be replaced. Chloride 93, CO2 36, BUN 61 creatinine 1.63. On discharge plan a 70-year-old this time due to insurance issue. senior marketing manager is working with [facility] and [facility] regarding discharge plan. REVIEW OF SYSTEMS: Constitutional: No documented fever, no chills, no night sweats. No weight change. No weakness, fatigue or lethargy. No daytime sleepiness. HEENT: No headache. No blurred vision or double vision, no loss of vision. No loss of Hearing, no ringing in the ears, no dizziness. No nasal drainage or congestion. No epistaxis. No sore throat. Lungs: positive for shortness of breath-improving, occasional cough, minimal sputum production. No wheezing. Reports dyspnea with activity. Cardiovascular: positive for chest pain, positive for lower extremity edema. No palpitations. positive for paroxysmal nocturnal dyspnea. positive for orthopnea. No lightheadedness or dizziness. No syncopal episodes. Abdominal: Reports abdominal pain. No nausea, vomiting. No diarrhea. No constipation. No bloody or tarry stools reports loss of appetite. Genitourinary: No dysuria, increased frequency, urgency, Lynn catheter in place Musculoskeletal: No myalgias. positive for muscle weakness, positive for gait dysfunction, positive for frequent falls. positive for back pain. No neck pain, bilateral hip pain Integumentary: No wounds, no lesions. No rash or pruritus. No unusual bruising. No change in hair or nails. Neurologic: No aphasia. No facial droop. No change in mentation. No head injury. No headache. No paralysis. No paresthesia. Psychiatric: No depression. No anxiety. No mood swings. Endocrine: No abnormal blood sugars. No weight change. PHYSICAL EXAMINATION: General: 73-year-old male sitting in recliner in no respiratory distress. Patient is visiting with friends. HEENT: Head is atraumatic, normocephalic, pupils were equal round reactive to light and recommendation, extraocular muscle movement were intact, sclera nonicteric, conjunctivae were pale, mucous membranes of the mouth are somewhat dry. Neck: Supple, no JVP, normal carotid upstroke bilaterally, no lymphadenopathy. Chest: Decreased breath sounds at the bases, few rhonchi, mild expiratory wheezes, no chest wall tenderness, mild intercostal retractions. Heart: First heart sound is normal, second heart sound is normal, there is systolic ejection murmur 2/6 located in the left sternal border. Abdomen: Soft, nontender, nondistended, positive bowel sounds, obese. Extremities: There is +2 edema no calf tenderness DP +2 bilaterally, there is bilateral scabbed lesions in both shins free Neurologic examination: Patient is awake alert and oriented X 3, cranial nerves II-12 appear grossly intact, muscle power were 4 out of 5 in upper extremities and 3/5 in bilateral lower extremities ASSESSMENT AND PLAN: 1. Acute hypoxemic respiratory failure due to acute on chronic diastolic heart failure and acute exacerbation of COPD wit RAMYA and OHS. IV Lasix has been transitioned to oral 80 mg twice daily by cardiology. Continue to monitor input and output and daily weight, continue spironolactone 25 mg orally once every day, metoprolol 37.5 mg orally twice every day, Pulmicort 1 mg twice daily, DuoNeb treatments every 4 hours, singular 10 mg at bedtime, Solu-Medrol 60 mg IVP Q 6 hours and Zosyn 3.375 gr IVPB Q8 hours cardiology consultation and pulmonary consultation appreciated. 2. COPD/moderate persistent asthma exacerbation with chronic hypoxemic respiratory failure continue oxygen support continue DuoNeb 3 mg nebulization 4 times every day, Pulmicort 1 mg twice daily, O2 support along with Zosyn and Solu-Medrol. 3. Paroxysmal atrial fibrillation/ Flutter. Continue patient on metoprolol 37.5 mg orally twice every day, on Xarelto 15 mg orally once every day 4. Hypertension and hypertensive cardiovascular disease. Continue patient on metoprolol 37.5 mg orally twice every day, monitor the patient blood pressure very closely. 5. Hyperlipidemia. Continue patient on atorvastatin 20 mg orally once every day, monitor lipid panel, keep LDL 55-70. 6. Enlarged prostate. Continue patient on tamsulosin 0.4 mg orally once every day. Patient has Lynn catheter. 7. Anxiety disorder. Continue patient on sertraline 100 mg orally once every day. 8. Neuropathy. Continue patient on gabapentin 300 mg at bedtime. 9. DVT prophylaxis. Continue Xarelto 15 mg po daily 10. GI prophylaxis. Continue patient on Protonix 40 mg orally once every day. 11. senior marketing manager consult for discharge planning: Impression and plan of care have been directed as dictated by the signing physician. Concepción Perkins nurse practitioner acting as scribe for signing physician. Objective - Vital Signs Vital signs: Vital Signs Temp 97.8 F 09/18/23 07:32 Pulse 64 09/18/23 08:08 Resp 18 09/18/23 07:32 BP 102/57 09/18/23 07:32 Pulse Ox 96 09/18/23 07:59 FiO2 30 09/18/23 06:08 Intake & Output 09/17/23 09/18/23 09/18/23 18:59 06:59 18:59 Intake Total 1000 Output Total 3000 1000 Balance -3000 0 Weight 122.47 kg Intake: Oral 1000 Output: Urine 3000 1000 Other: Voiding Method Indwelling Catheter # Bowel Movements 1 1 - Labs CBC & Chem 7: 09/17/23 05:52 09/18/23 05:58 Labs: Abnormal Lab Results - Last 24 Hours (Table) 09/18/23 Range/Units 05:58 Potassium 3.2 L (3.5-5.1) mmol/L Chloride 93 L (98-107) mmol/L Carbon Dioxide 36 H (22-30) mmol/L BUN 61 H (9-20) mg/dL Creatinine 1.63 H (0.66-1.25) mg/dL Glucose 125 H (74-99) mg/dL Microbiology - Last 24 Hours (Table) 09/16/23 20:20 Blood Culture - Preliminary Blood
[2023-09-18] MEDS: RIVAROXABAN 15 MG TAB PO SCH (16:29)
[2023-09-18] MEDS: GABAPENTIN 300 MG CAP PO SCH (21:20)
[2023-09-18] MEDS: ATORVASTATIN 20 MG TAB PO SCH (21:20)
[2023-09-18] MEDS: SERTRALINE 100 MG TAB PO SCH (21:20)
[2023-09-18] MEDS: TAMSULOSIN 0.4 MG CAP.ER.24H PO SCH (21:20)
[2023-09-18] MEDS: MONTELUKAST 10 MG TAB PO SCH (21:20)
[2023-09-18] MEDS: MELATONIN 5 MG TABLET PO PRN (21:23)
[2023-09-18] MEDS: BENZONATATE 100 MG CAP PO PRN (21:24)
[2023-09-18] MEDS: ACETAMINOPHEN TAB 500 MG TAB PO PRN (21:24)
[2023-09-19] MEDS: PANTOPRAZOLE 40 MG TABLET PO SCH (05:05)
[2023-09-19 05:28] LABS: Mycoplasma IgG Antibody (EIA) 1.17 INDEX (<=0.90); Mycoplasma IgM Antibody 0.52 INDEX (<=0.90)
[2023-09-19 07:45] VITALS: RESP 20
[2023-09-19] MEDS: IPRATROPIUM-ALBUTEROL 3 ML NEB INHALATION SCH ×2 (08:08→11:25)
[2023-09-19] MEDS: SYMBICORT 160-4.5 MCG INHALER INHALATION SCH (08:08)
[2023-09-19] MEDS ORDERED: metOLazone 2.5 MG TAB PO SCH (09:00)
[2023-09-19] MEDS: METOPROLOL TARTRATE 25 MG TAB PO SCH (09:12)
[2023-09-19] MEDS: NYSTATIN 100,000 UNIT/ML SUSP 500,000 UNIT/5 ML CUP PO SCH ×2 (09:12→13:29)
[2023-09-19] MEDS: allopurinoL 100 MG TAB PO SCH (09:12)
[2023-09-19] MEDS: CHOLECALCIFEROL 25 MCG (1000 IU) TABLET PO SCH (09:13)
[2023-09-19] MEDS: CYANOCOBALAMIN 500 MCG TAB PO SCH (09:13)
[2023-09-19] MEDS: DAPAGLIFLOZIN PROPANEDIOL 10 MG TABLET PO SCH (09:13)
[2023-09-19] MEDS: SPIRONOLACTONE 25 MG TAB PO SCH (09:13)
[2023-09-19] MEDS: FUROSEMIDE 80 MG TAB PO SCH (09:13)
[2023-09-19] MEDS: RIVAROXABAN 15 MG TAB PO SCH (09:13)
[2023-09-19] MEDS: predniSONE 10 MG TAB PO SCH (09:16)
[2023-09-19] MEDS: NYSTATIN 100,000 UNIT/GM POWD 15 GM TOPICAL SCH (09:17)
--- NOTE | 2023-09-19 11:07 | P.PN ---
Subjective Progress Note Date: 09/19/23 HISTORY OF PRESENT ILLNESS: This is a 73-year-old male with a previous medical history significant for hypertension and hypertensive cardiovascular disease, hyperlipidemia, obesity with obstructive sleep apnea and obesity hypoventilation syndrome, chronic diastolic heart failure, asthma, hypothyroidism, anxiety and depressive disorder, peripheral neuropathy. Patient has had multiple hospitalizations for acute on chronic diastolic heart failure and acute exacerbation of COPD. Patient has had multiple hospitalizations for acute on chronic diastolic heart failure, pulmonary edema, acute exacerbation of COPD and acute on chronic respiratory failure. He most recently was discharged to [facility] on 09/11 is stable condition. He had an extended hospitalization and was also worked up for acute kidney injury, thrombocytopenia, anemia with concern for MDS seen by oncology thought to be due to acute reactivity, patient was seen by me at [facility] on the hartman few days ago and his medications were adjusted due to increased edema and increased shortness of breath, was increased on Furosemide to 80 mg po bid, added Metolazone 2.5 mg po daily twice a week and he was maintained on Spironolactone , patient was lying down in bed without his CPAP which was dysfunctional I believe and he became unresponsive with low O2 saturation eventhough the patient was DNR patient was placed on CPAP EMS was called and patient was transfeered back to the ER for Acute hypoxic respiratory failure due to acute diastolic heart failure with COPD exacerbation, CXR showed PVC with small right pleural effusion and patient was placed on Furosemide 40 mg IVP Q 8 hours , was placed on Zosyn and Solu-Medrol 60 mg IVP Q6 hours and pulmonary and Cardiology consult and placed patient on BIPAP 09/17: Patient was initially started on IV Lasix 40 mg every 8 hours and has been transitioned to oral Lasix 80 mg twice daily by cardiology. Patient is also on IV Solu-Medrol 60 mg every 6 hours for COPD exacerbation. Repeat blood work today reveals an increase in creatinine function with BUN 56 creatinine 1.47. Blood sugar 163. Pro-calcitonin 0.09. Hemoglobin is 8.6. Patient has been afebrile, heart rate in the 60s, blood pressure 156/65, pulse ox 96% on 3 L nasal cannula. Patient has been resumed on his home medications. He is followed by both pulmonary medicine and cardiology. 09/18: patient is seen today on the MedSur floor. He has been seen by cardiology this morning and plan is to continue current medications. Repeat blood work reveals sodium 137, potassium 3.2, and will be replaced. Chloride 93, CO2 36, BUN 61 creatinine 1.63. On discharge plan a 70-year-old this time due to insurance issue. corporate human resources manager is working with [facility] regarding discharge plan. 09/19: Patient denies any new complaints. He is resting in bed with HOB elevated. Patient had a large BM this morning. He is using Bipap at night. HR 60-80s, BP 106/39. Repeat blood work will be ordered for tomorrow. Discharge plan has not been confirmed. corporate human resources manager is working on plan. REVIEW OF SYSTEMS: Constitutional: No documented fever, no chills, no night sweats. No weight change. No weakness, fatigue or lethargy. No daytime sleepiness. HEENT: No headache. No blurred vision or double vision, no loss of vision. No loss of Hearing, no ringing in the ears, no dizziness. No nasal drainage or congestion. No epistaxis. No sore throat. Lungs: positive for shortness of breath-improving, occasional cough, minimal sputum production. No wheezing. Reports dyspnea with activity. Cardiovascular: positive for chest pain, positive for lower extremity edema. No palpitations. positive for paroxysmal nocturnal dyspnea. positive for orthopnea. No lightheadedness or dizziness. No syncopal episodes. Abdominal: Reports abdominal pain. No nausea, vomiting. No diarrhea. No constipation. No bloody or tarry stools reports loss of appetite. Genitourinary: No dysuria, increased frequency, urgency, Peters catheter in place Musculoskeletal: No myalgias. positive for muscle weakness, positive for gait dysfunction, positive for frequent falls. positive for back pain. No neck pain, bilateral hip pain Integumentary: No wounds, no lesions. No rash or pruritus. No unusual bruising . No change in hair or nails. Neurologic: No aphasia. No facial droop. No change in mentation. No head injury. No headache. No paralysis. No paresthesia. Psychiatric: No depression. No anxiety. No mood swings. Endocrine: No abnormal blood sugars. No weight change. PHYSICAL EXAMINATION: General: 73-year-old male sitting in bed in no respiratory distress. HEENT: Head is atraumatic, normocephalic, pupils were equal round reactive to light and recommendation, extraocular muscle movement were intact, sclera nonicteric, conjunctivae were pale, mucous membranes of the mouth are somewhat dry. Neck: Supple, no JVP, normal carotid upstroke bilaterally, no lymphadenopathy. Chest: Decreased breath sounds at the bases, few rhonchi, mild expiratory wheezes, no chest wall tenderness, no intercostal retractions. Heart: First heart sound is normal, second heart sound is normal, there is systolic ejection murmur 2/6 located in the left sternal border. Abdomen: Soft, nontender, nondistended, positive bowel sounds, obese. Peters catheter in place. Extremities: There is +1 edema no calf tenderness DP +2 bilaterally, there is bilateral wounds. Neurologic examination: Patient is awake alert and oriented X 3, cranial nerves II-12 appear grossly intact, muscle power were 4 out of 5 in upper extremities and 3/5 in bilateral lower extremities ASSESSMENT AND PLAN: 1. Acute hypoxemic respiratory failure due to acute on chronic diastolic heart failure and acute exacerbation of COPD wit RAMYA and OHS. IV Lasix has been transitioned to oral 80 mg twice daily by cardiology. Continue to monitor input and output and daily weight, continue spironolactone 25 mg orally once every day, metoprolol 37.5 mg orally twice every day, Pulmicort 1 mg twice daily, DuoNeb treatments every 4 hours, singular 10 mg at bedtime, Solu-Medrol 60 mg IVP Q 6 hours and Zosyn 3.375 gr IVPB Q8 hours cardiology consultation and pulmonary consultation appreciated. 2. COPD/moderate persistent asthma exacerbation with chronic hypoxemic respiratory failure continue oxygen support continue DuoNeb 3 mg nebulization 4 times every day, Pulmicort 1 mg twice daily, O2 support along with Zosyn and Solu-Medrol. 3. Paroxysmal atrial fibrillation/ Flutter. Continue patient on metoprolol 37.5 mg orally twice every day, on Xarelto 15 mg orally once every day 4. Hypertension and hypertensive cardiovascular disease. Continue patient on metoprolol 37.5 mg orally twice every day, monitor the patient blood pressure very closely. 5. Hyperlipidemia. Continue patient on atorvastatin 20 mg orally once every day, monitor lipid panel, keep LDL 55-70. 6. Enlarged prostate. Continue patient on tamsulosin 0.4 mg orally once every day. Patient has Peters catheter. 7. Anxiety disorder. Continue patient on sertraline 100 mg orally once every day. 8. Neuropathy. Continue patient on gabapentin 300 mg at bedtime. 9. Chronic venous stasis ulcer to bilat lower legs, POA. Continue wound care with Aquacell and kerlix wraps qod on left and silvadene wraps daily on the right. 10. Chronic peters catheter. Change monthly. 11. DVT prophylaxis. Continue Xarelto 15 mg po daily 11. GI prophylaxis. Continue patient on Protonix 40 mg orally once every day. 11. corporate human resources manager consult for discharge planning: Impression and plan of care have been directed as dictated by the signing physician. Concepción Perkins nurse practitioner acting as scribe for signing physician. Objective - Vital Signs Vital signs: Vital Signs Temp 98.3 F 09/19/23 07:05 Pulse 72 09/19/23 08:20 Resp 20 09/19/23 07:05 BP 106/39 09/19/23 07:05 Pulse Ox 94 L 09/19/23 07:05 FiO2 30 09/19/23 08:12 Intake & Output 09/18/23 09/19/23 09/19/23 18:59 06:59 18:59 Intake Total 800 Output Total 1900 2725 800 Balance -1900 -1925 -800 Weight 122.47 kg Intake: Oral 800 Output: Urine 1900 2725 800 Other: Voiding Method Indwelling Catheter Indwelling Catheter # Bowel Movements 1 - Labs CBC & Chem 7: 09/17/23 05:52 09/18/23 05:58 Labs: Abnormal Lab Results - Last 24 Hours (Table) 09/16/23 Range/Units 20:20 Mycoplasma pneumon IgG 1.17 H (<=0.90) INDEX Microbiology - Last 24 Hours (Table) 09/16/23 20:20 Blood Culture - Preliminary Blood
--- NOTE | 2023-09-19 12:13 | P.DS ---
Providers Date of admission: 09/16/23 16:50 Expected date of discharge: 09/19/23 Attending physician: Alison Leon Consults: 09/16/23 16:47 Consult Physician Routine Consulting Provider: [facility] Consult Reason/Comments: Chest pain, acute pulmonary edema Do you want consulting provider notified?: Yes Consult Physician Routine Consulting Provider: Kumar Buck Reason/Comments: Pulmonary edema Do you want consulting provider notified?: Yes Primary care physician: Alison Leon Hospital Course: HISTORY OF PRESENT ILLNESS: This is a 73-year-old male with a previous medical history significant for hypertension and hypertensive cardiovascular disease, hyperlipidemia, obesity with obstructive sleep apnea and obesity hypoventilation syndrome, chronic diastolic heart failure, asthma, hypothyroidism, anxiety and depressive disorder, peripheral neuropathy. Patient has had multiple hospitalizations for acute on chronic diastolic heart failure and acute exacerbation of COPD. Patient has had multiple hospitalizations for acute on chronic diastolic heart failure, pulmonary edema, acute exacerbation of COPD and acute on chronic respiratory failure. He most recently was discharged to [facility] on 09/11 is stable condition. He had an extended hospitalization and was also worked up for acute kidney injury, thrombocytopenia, anemia with concern for MDS seen by oncology thought to be due to acute reactivity, patient was seen by me at [facility] on the hartman few days ago and his medications were adjusted due to increased edema and increased shortness of breath, was increased on Furosemide to 80 mg po bid, added Metolazone 2.5 mg po daily twice a week and he was maintained on Spironolactone , patient was lying down in bed without his CPAP which was dysfunctional I believe and he became unresponsive with low O2 saturation eventhough the patient was DNR patient was placed on CPAP EMS was called and patient was transfeered back to the ER for Acute hypoxic respiratory failure due to acute diastolic heart failure with COPD exacerbation, CXR showed PVC with small right pleural effusion and patient was placed on Furosemide 40 mg IVP Q 8 hours , was placed on Zosyn and Solu-Medrol 60 mg IVP Q6 hours and pulmonary and Cardiology consult and placed patient on BIPAP 09/17: Patient was initially started on IV Lasix 40 mg every 8 hours and has been transitioned to oral Lasix 80 mg twice daily by cardiology. Patient is also on IV Solu-Medrol 60 mg every 6 hours for COPD exacerbation. Repeat blood work today reveals an increase in creatinine function with BUN 56 creatinine 1.47. Blood sugar 163. Pro-calcitonin 0.09. Hemoglobin is 8.6. Patient has been afebrile, heart rate in the 60s, blood pressure 156/65, pulse ox 96% on 3 L nasal cannula. Patient has been resumed on his home medications. He is followed by both pulmonary medicine and cardiology. 09/18: patient is seen today on the MedSur floor. He has been seen by pam ramirez this morning and plan is to continue current medications. Repeat blood work reveals sodium 137, potassium 3.2, and will be replaced. Chloride 93, CO2 36, BUN 61 creatinine 1.63. Pulmonary medicine has transition IV Solu-Medrol to oral prednisone 30 mg daily 09/19: Patient denies any new complaints. He is resting in bed with HOB elevated. Patient had a large BM this morning. He is using Bipap at night. HR 60-80s, BP 106/39. Repeat blood work will be ordered for tomorrow. Discharge plan is to return to [facility]. Patient will be discharged once all arrangements are completed. DISCHARGE DIAGNOSES: 1. Acute hypoxemic respiratory failure due to acute on chronic diastolic heart failure and acute exacerbation of COPD wit RAMYA and OHS. 2. COPD/moderate persistent asthma exacerbation with chronic hypoxemic respiratory failure. 3. Paroxysmal atrial fibrillation/ Flutter. 4. Hypertension and hypertensive cardiovascular disease. 5. Hyperlipidemia. 6. Enlarged prostate. 7. Anxiety disorder. 8. Neuropathy. 9. Chronic venous stasis ulcer to bilat lower legs, POA. DISCHARGE PLAN: return to [facility] Greater than 35 minutes was utilized and coordinating patient's discharge. Impression and plan of care have been directed as dictated by the signing physician. Concepción Perkins nurse practitioner acting as scribe for signing physician. Patient Condition at Discharge: Stable Plan - Discharge Summary Discharge Rx Participant: No New Discharge Prescriptions: New Dapagliflozin Propanediol [Farxiga] 10 mg PO DAILY tab guaiFENesin SYRUP 100MG/5ML [Robitussin] 200 mg PO Q6HR PRN ml PRN Reason: Cough Budesonide-Formot 160-4.5 Mcg [Symbicort 160-4.5 Mcg Inhaler] 2 puff INHALATION RT-BID each Nystatin 100,000 Unit/ml Susp [Mycostatin Oral Susp] 500,000 unit PO QID 7 Days ml Continue Sertraline [Zoloft] 100 mg PO HS@2100 Atorvastatin [Lipitor] 20 mg PO HS@2100 Tamsulosin [Flomax] 0.4 mg PO HS@2100 Ipratropium-Albuterol Nebulize [Duoneb 0.5 mg-3 mg/3 ml Soln] 3 ml INHALATION RT-Q6H@00,06,12,18 Omeprazole [PriLOSEC] 20 mg PO DAILY@0600 Montelukast [Singulair] 10 mg PO HS@2100 Metoprolol Tartrate [Lopressor] 37.5 mg PO BID@0900,2100 allopurinoL 200 mg PO DAILY@0900 Ammonium Lactate Lotion [Lac-Hydrin 12% Lotion] 1 applic TOPICAL BID metOLazone [Zaroxolyn] 2.5 mg PO MOFR Budesonide [Pulmicort] 1 mg INHALATION RT-BID@0900,2100 Acetaminophen Tab [Tylenol] 500 mg PO Q6H PRN PRN Reason: Pain Cholecalciferol [Vitamin D3 (25 Mcg = 1000 Iu)] 50 mcg PO DAILY@0900 Benzonatate [Tessalon Perles] 200 mg PO TID PRN cap PRN Reason: Cough Melatonin 10 mg PO HS PRN tab PRN Reason: Insomnia Nystatin 100,000 Unit/gm Powd [Mycostatin Powder] 1 applic TOPICAL BID #0 each Spironolactone [Aldactone] 25 mg PO DAILY@0900 Cyanocobalamin [Vitamin B-12] 1,000 mcg PO DAILY@0900 Rivaroxaban [Xarelto] 15 mg PO DAILY@1700 Furosemide [Lasix] 80 mg PO BID@0900,1700 Artificial Tears-Hypromellose [Artificial Tear Drops] 1 drop BOTH EYES TID PRN PRN Reason: Dry Eye(S) predniSONE [Deltasone] See Taper PO DIRECTED Changed Gabapentin [Neurontin] 300 mg PO HS@2099 #3 cap Discharge Medication List Sertraline [Zoloft] 100 mg PO HS@2100 04/04/17 [History] Atorvastatin [Lipitor] 20 mg PO HS@2100 07/14/19 [History] Tamsulosin [Flomax] 0.4 mg PO HS@209907/14/19 [History] Ipratropium-Albuterol Nebulize [Duoneb 0.5 mg-3 mg/3 ml Soln] 3 ml INHALATION RT-Q6H@00,06,12,18 08/19/19 [History] Acetaminophen Tab [Tylenol] 500 mg PO Q6H PRN 03/26/23 [History] Cholecalciferol [Vitamin D3 (25 Mcg = 1000 Iu)] 50 mcg PO DAILY@0903/26/23 [History] Benzonatate [Tessalon Perles] 200 mg PO TID PRN cap 07/17/23 [Rx] Montelukast [Singulair] 10 mg PO HS@209908/07/23 [History] Omeprazole [PriLOSEC] 20 mg PO DAILY@0608/07/23 [History] Melatonin 10 mg PO HS PRN tab 08/11/23 [Rx] Ammonium Lactate Lotion [Lac-Hydrin 12% Lotion] 1 applic TOPICAL BID 08/23/23 [History] Metoprolol Tartrate [Lopressor] 37.5 mg PO BID@0900,209908/23/23 [History] allopurinoL 200 mg PO DAILY@89908/23/23 [History] Nystatin 100,000 Unit/gm Powd [Mycostatin Powder] 1 applic TOPICAL BID #0 each 09/04/23 [Rx] Artificial Tears-Hypromellose [Artificial Tear Drops] 1 drop BOTH EYES TID PRN 09/16/23 [History] Budesonide [Pulmicort] 1 mg INHALATION RT-BID@0900,209909/16/23 [History] Cyanocobalamin [Vitamin B-12] 1,000 mcg PO DAILY@0909/16/23 [History] Furosemide [Lasix] 80 mg PO BID@0900,1700 09/16/23 [History] Rivaroxaban [Xarelto] 15 mg PO DAILY@1700 09/16/23 [History] Spironolactone [Aldactone] 25 mg PO DAILY@0909/16/23 [History] metOLazone [Zaroxolyn] 2.5 mg PO MOFR 09/16/23 [History] predniSONE [Deltasone] See Taper PO DIRECTED 09/16/23 [History] Budesonide-Formot 160-4.5 Mcg [Symbicort 160-4.5 Mcg Inhaler] 2 puff INHALATION RT-BID each 09/18/23 [Rx] Dapagliflozin Propanediol [Farxiga] 10 mg PO DAILY tab 09/18/23 [Rx] Gabapentin [Neurontin] 300 mg PO HS@2100 #3 cap 09/18/23 [Rx] Nystatin 100,000 Unit/ml Susp [Mycostatin Oral Susp] 500,000 unit PO QID 7 Days ml 09/18/23 [Rx] guaiFENesin SYRUP 100MG/5ML [Robitussin] 200 mg PO Q6HR PRN ml 09/18/23 [Rx] Follow up Appointment(s)/Referral(s): Alison Leon MD [Primary Care Provider] - 1 Week (at [facility]) Discharge Disposition: TRANSFER TO SNF/ECF
[2023-09-19 12:49] VITALS: BP 103/47; PULSE 65; TEMP 97.4
--- NOTE | 2023-09-19 14:25 | P.PN ---
Subjective Progress Note Date: 09/19/23 I am seeing this patient in consultation again 09/17/2023 in the emergency room after he was readmitted for acute on chronic hypoxemic and hypercapnic respiratory failure requiring BiPAP. Patient is a 73-year-old white male who resides at a local [facility]. His past medical history significant for congestive h eart failure, asthma/COPD, obstructive sleep apnea with CPAP, chronic oxygen dependence, hyperlipidemia, hypertension, paroxysmal atrial fibrillation, chronic leg wounds, among other things. Patient was discharged 6 days ago for similar symptoms. Patient was reportedly at his retirement, when staff noticed him to be apneic. They did attempt to put him back on his home CPAP device. Patient reportedly never lost pulse and no CPR was performed. Patient was transferred to the emergency department by EMS yesterday afternoon. Patient is currently sitting up in bed, on BiPAP with settings of 12/5 in an FiO2 30%, in no acute distress. He is alert and oriented. No signs of hypercapenic enceph alopathy. He does say that he has been short of breath since his recent hospital discharge. He also admits some increased lower extremity edema. He states that he has some substernal chest tightness without radiation. Denies any heart palpitations, lightheadedness. He denies any fevers, chills, cough. Chest x-ray on arrival demonstrated pulmonary edema and a small right pleural effusion. Patient has been started on Lasix 40 mg 3 times a day. CBC on arrival showed a WBC count of 9.7, hemoglobin 9.3, hematocrit 30.8, platelets 176. VBG done on arrival showed a pCO2 of 37, and pH of 7.42. BMP on arrival shows sodium 137, potassium 4.3, chloride 97, serum bicarbonate 34, BUN 50, creatinine 1.14, glucose 135. Lactic acid level was not elevated. Troponin less than 0.012. Heart rhythm shows sinus bradycardia with a rate of 59 bpm and no acute ischemic changes. NT proBNP was elevated at 2680. Patient is afebrile. Patient was empirically placed on Zosyn in the emergency room. Patient is to be admitted to cardiac stepdown unit once bed available. The patient is seen today 09/18/2023 in follow-up on the regular medical floor. He is currently sitting up in bed. Awake and alert in no acute distress. He states he is doing quite a bit better today. Less coughing. Less congested. Currently maintaining good O2 saturations in the 90s on 2 L/m per nasal cannula. He did utilize BiPAP 12/5 and 30% FiO2 throughout the night. Blood culture reveals no growth to date. Sodium 137. Potassium 3.2. Bicarb 36. BUN 61. Creatinine 1.63. Glucose 125. His pro calcitonin was 0.09. He is currently on Zosyn. Remains on DuoNeb inhalations, Pulmicort and Perforomist inhalations, Singulair Solu-Medrol. Lee on oral diuretics. Currently in a -3 L balance. The patient is seen today 09/19/2023 in follow-up on the regular medical floor. He is resting comfortably in bed. Awake and alert in no acute distress. He is feeling back to his baseline. He is maintaining O2 saturations in the 90s on 2 L/m per nasal cannula. He did utilize BiPAP 12/5 and 30% FiO2 throughout the n ight. He's been afebrile. Hemodynamically stable. Blood cultures reveal no growth. He remains on DuoNeb inhalations, Singulair, Symbicort, prednisone taper. Remains on oral diuretics. Currently in a -3.8 L balance. Objective - Vital Signs Vital signs: Vital Signs Temp 97.4 F L 09/19/23 11:44 Pulse 65 09/19/23 11:44 Resp 20 09/19/23 11:44 BP 103/47 09/19/23 11:44 Pulse Ox 93 L 09/19/23 11:44 FiO2 30 09/19/23 08:12 Intake & Output 09/18/23 09/19/23 09/19/23 18:59 06:59 18:59 Intake Total 800 Output Total 1900 2725 800 Balance -1899 -192 -800 Weight 122.47 kg Intake: Oral 800 Output: Urine 1899 2725 800 Other: Voiding Method Indwelling Catheter Indwelling Catheter Indwelling Catheter # Bowel Movements 1 1 - Exam GENERAL EXAM: Alert 73-year-old obese male, on 2 L nasal cannula, comfortable in no apparent distress. HEAD: Normocephalic and atraumatic EYES: Normal reaction of pupils, equal size. NOSE: Clear with pink turbinates. THROAT: No erythema or exudates. NECK: No masses, no JVD. CHEST: No chest wall deformity. LUNGS: Equal air entry with bibasilar inspiratory crackles. Mild expiratory wheezes heard throughout. CVS: S1 and S2 normal with no audible murmur, regular rhythm. No extra heart sounds ABDOMEN obese abdomen, no hepatosplenomegaly, active bowel sounds, no guarding or rigidity. SPINE: No scoliosis or deformity SKIN: right lower extremity partial thickness ulceration, legs are wrapped with Toribio bandages CENTRAL NERVOUS SYSTEM: No focal deficits, tone is normal in all 4 extremities. EXTREMITIES: There is bilateral lower extremity 2-3 + pitting edema. No clubbing, or cyanosis. Peripheral pulses are intact. - Labs CBC & Chem 7: 09/17/23 05:52 09/18/23 05:58 Labs: Abnormal Lab Results - Last 24 Hours (Table) 09/16/23 Range/Units 20:20 Mycoplasma pneumon IgG 1.17 H (<=0.90) INDEX Microbiology - Last 24 Hours (Table) 09/16/23 20:20 Blood Culture - Preliminary Blood Assessment and Plan Assessment: Acute exacerbation of diastolic CHF, chest x-ray shows cardiomegaly, pulmonary edema, and right sided pleural effusion. Echocardiogram from 08/25/23 showed ejection fraction of left ventricle in the order of 50-55%, and otherwise was a limited exam Acute exacerbation of chronic bronchial asthma/COPD Acute on chronic hypoxemic and hypercapnic respiratory failure, currently on BiPAP Paroxysmal atrial fibrillation., currently in sinus rhythm, anticoagulation with Xarelto Chronic kidney disease stage III Anemia of chronic disease. Obstructive sleep apnea syndrome, maintained on CPAP. Chronic venous stasis and right lower extremity wounds Benign essential hypertension History of hyperlipidemia Morbid obesity, with a BMI of 44.9 kg/m Plan: The patient was seen and evaluated Medications reviewed Continued on bronchodilators, prednisone taper Continued on oxygen at 2 L/m per nasal cannula The plan is to return to [facility] upon discharge This patient was seen independently by the nurse practitioner I have personally seen and examined the patient, performed the documentation and the assessment and plan as written. Number of minutes spent on the visit: 22.
== END 2023-09-19 14:51 | DRG 189 ==
LOC: EC 14:06 → 3SCARD 16:50 → 5NMEDONC 09-17 12:36
PROVIDERS: ADMIT Internal Medicine; ATTEND Internal Medicine
DX: J96.21 Acute and chronic respiratory failure with hypoxia (principal); I50.33 Acute on chronic diastolic (congestive) heart failure; I13.0 Hypertensive heart and chronic kidney disease with heart failure and stage 1 through stage 4 chronic kidney disease, or unspecified chronic kidney disease; J44.1 Chronic obstructive pulmonary disease with (acute) exacerbation; J45.41 Moderate persistent asthma with (acute) exacerbation; Z68.41 Body mass index [BMI] 40.0-44.9, adult; N17.9 Acute kidney failure, unspecified; E66.2 Morbid (severe) obesity with alveolar hypoventilation; J96.22 Acute and chronic respiratory failure with hypercapnia; F32.A Depression, unspecified; F41.9 Anxiety disorder, unspecified; E78.5 Hyperlipidemia, unspecified; D63.8 Anemia in other chronic diseases classified elsewhere; E03.9 Hypothyroidism, unspecified; E11.22 Type 2 diabetes mellitus with diabetic chronic kidney disease; G62.9 Polyneuropathy, unspecified; I48.0 Paroxysmal atrial fibrillation; I83.009 Varicose veins of unspecified lower extremity with ulcer of unspecified site; N18.30 Chronic kidney disease, stage 3 unspecified; N40.0 Benign prostatic hyperplasia without lower urinary tract symptoms; Z96.653 Presence of artificial knee joint, bilateral; Z79.01 Long term (current) use of anticoagulants; Z79.51 Long term (current) use of inhaled steroids; Z79.899 Other long term (current) drug therapy; Z80.1 Family history of malignant neoplasm of trachea, bronchus and lung; Z82.0 Family history of epilepsy and other diseases of the nervous system; Z82.49 Family history of ischemic heart disease and other diseases of the circulatory system; Z99.81 Dependence on supplemental oxygen
CPT/HCPCS: 36415; 71045; 80048; 80053; 82803; 83605; 83735; 83880; 84145; 84484; 85025; 85610; 85730; 86738; 87040; 87070; 87205; 87449; 93005; 94640; 94660; 94760; 96374; 96375; 99285

== ENCOUNTER 2023-10-04 00:13 | Inpatient (IN) | payer MEDICARE, BC ==
--- NOTE | 2023-10-04 01:11 | ED ---
General Adult HPI - General Chief complaint: Shortness of Breath Stated complaint: Difficulty breathing Time Seen by Provider: 10/04/23 00:15 Source: EMS Mode of arrival: EMS Limitations: no limitations - History of Present Illness Initial comments: Dictation was produced using [employer] dictation software. please excuse any grammatical, word or spelling errors. Chief Complaint: 73-year-old male past nuchal history of COPD presents with dyspnea hypoxic respiratory failure History of Present Illness: 73 year-old CPAP depended male presents to the ER for hypoxia, dyspnea and altered mental status. Apparently he supposed to wear his CPAP machine however he continually refuses and takes his CPAP machine off when staff is not looking. It is unclear when he was last seen normal. He was discovered prior to arrival by [facility] staff with his machine off. He also appeared to be lethargic. EMS was called. He was hypoxic into the 70s without any O2 on. He had CPAP placed by prehospital providers. Patient has history of mental debility. He is unable to provide history of present also at this time. He is allegedly DO NOT RESUSCITATE and working towards hospice care. The ROS documented in this emergency department record has been reviewed and confirmed by me. Those systems with pertinent positive or negative responses have been documented in the HPI. All other systems are other negative and/or noncontributory. - Related Data Home Medications Medication Instructions Recorded Confirmed Sertraline [Zoloft] 100 mg PO HS@209904/04/17 09/16/23 Atorvastatin [Lipitor] 20 mg PO HS@209907/14/19 09/16/23 Tamsulosin [Flomax] 0.4 mg PO HS@209907/14/19 09/16/23 Ipratropium-Albuterol Nebulize 3 ml INHALATION RT-Q6H@00,06,12,18 08/19/19 09/16/23 [Duoneb 0.5 mg-3 mg/3 ml Soln] Acetaminophen Tab [Tylenol] 500 mg PO Q6H PRN 03/26/23 09/16/23 Cholecalciferol [Vitamin D3 (25 50 mcg PO DAILY@0900 03/26/23 09/16/23 Mcg = 1000 Iu)] Montelukast [Singulair] 10 mg PO HS@209908/07/23 09/16/23 Omeprazole [PriLOSEC] 20 mg PO DAILY@0600 08/07/23 09/16/23 Ammonium Lactate Lotion 1 applic TOPICAL BID 08/23/23 09/16/23 [Lac-Hydrin 12% Lotion] Metoprolol Tartrate [Lopressor] 37.5 mg PO BID@0900,2100 08/23/23 09/16/23 allopurinoL 200 mg PO DAILY@0900 08/23/23 09/16/23 Artificial Tears-Hypromellose 1 drop BOTH EYES TID PRN 09/16/23 09/16/23 [Artificial Tear Drops] Budesonide [Pulmicort] 1 mg INHALATION RT-BID@0900,2100 09/16/23 09/16/23 Cyanocobalamin [Vitamin B-12] 1,000 mcg PO DAILY@0900 09/16/23 09/16/23 Furosemide [Lasix] 80 mg PO BID@0900,1700 09/16/23 09/16/23 Rivaroxaban [Xarelto] 15 mg PO DAILY@1700 09/16/23 09/16/23 Spironolactone [Aldactone] 25 mg PO DAILY@0900 09/16/23 09/16/23 metOLazone [Zaroxolyn] 2.5 mg PO MOFR 09/16/23 09/16/23 predniSONE [Deltasone] See Taper PO DIRECTED 09/16/23 09/16/23 Previous Rx's Medication Instructions Recorded Benzonatate [Tessalon Perles] 200 mg PO TID PRN cap 07/17/23 Melatonin 10 mg PO HS PRN tab 08/11/23 Nystatin 100,000 Unit/gm Powd 1 applic TOPICAL BID #0 each 09/04/23 [Mycostatin Powder] Budesonide-Formot 160-4.5 Mcg 2 puff INHALATION RT-BID each 09/18/23 [Symbicort 160-4.5 Mcg Inhaler] Dapagliflozin Propanediol [Farxiga] 10 mg PO DAILY tab 09/18/23 Gabapentin [Neurontin] 300 mg PO HS@2100 #3 cap 09/18/23 Nystatin 100,000 Unit/ml Susp 500,000 unit PO QID 7 Days ml 09/18/23 [Mycostatin Oral Susp] guaiFENesin SYRUP 100MG/5ML 200 mg PO Q6HR PRN ml 09/18/23 [Robitussin] Allergies Allergy/AdvReac Type Severity Reaction Status Date / Time No Known Allergies Allergy Verified 10/04/23 00:16 Review of Systems ROS Statement: Those systems with pertinent positive or pertinent negative responses have been documented in the HPI. ROS Other: All systems not noted in ROS Statement are negative. Past Medical History Past Medical History: Atrial Fibrillation, Asthma, Chest Pain / Angina, Heart Failure, GERD/Reflux, Hyperlipidemia, Hypertension, Osteoarthritis (OA), Pneumonia, Renal Disease, Sleep Apnea/CPAP/BIPAP Additional Past Medical History / Comment(s): uses BiPap at night at [facility] on [place] [address] - nasal canula 2L during day, gout, in wheelchair or walker due to pain in left leg, poor circulation in legs,CKD stage 3, paroxysmal Afib, anemia, chronic venous stasis and lower extremity wounds History of Any Multi-Drug Resistant Organisms: None Reported Past Surgical History: Orthopedic Surgery, Tonsillectomy Additional Past Surgical History / Comment(s): LEFT WRIST ORIF, LEFT KNEE REPLACEMENT, bilateral cataract surgery Past Anesthesia/Blood Transfusion Reactions: No Reported Reaction Additional Past Anesthesia/Blood Transfusion Reaction / Comment(s): . Past Psychological History: Depression Smoking Status: Former smoker Past Alcohol Use History: None Reported Past Drug Use History: None Reported - Past Family History Mother Family Medical History: Congestive Heart Failure (CHF), Osteoarthritis (OA) Father Additional Family Medical History / Comment(s): FROM [place] Brother(s) Family Medical History: Cancer Additional Family Medical History / Comment(s): . Sister(s) Family Medical History: Deep Vein Thrombosis (DVT) General Exam - General Exam Comments Initial Comments: PHYSICAL EXAM: General Impression: Responds only to painful stimuli, not in acute distress HEENT: Normocephalic atraumatic, extra-ocular movements intact, pupils equal and reactive to light bilaterally, mucous membranes moist. Cardiovascular: Heart regular rate and rhythm Chest: Diminished lung sounds Abdomen: abdomen soft, non-tender, non-distended, no organomegaly Musculoskeletal: Pulses present and equal in all extremities, no peripheral edema Motor: no focal deficits noted Neurological: CN II-XII grossly intact, no focal motor or sensory deficits noted Skin: Intact with no visualized rashes Psych: Normal affect and mood Limitations: no limitations Course Vital Signs 10/04/23 10/04/23 10/04/23 00:16 00:20 00:28 Temperature 96.9 F L Pulse Rate 134 H 71 Respiratory 32 H 18 Rate Blood Pressure 89/48 90/57 O2 Sat by Pulse 100 100 Oximetry Fraction of 40 Inspired Oxygen (FIO2) 10/04/23 10/04/23 10/04/23 01:00 01:37 03:25 Temperature Pulse Rate 77 75 64 Respiratory 18 33 H 23 Rate Blood Pressure 90/57 115/86 87/62 O2 Sat by Pulse 94 L 92 L 96 Oximetry Fraction of Inspired Oxygen (FIO2) 10/04/23 10/04/23 10/04/23 04:19 04:40 05:28 Temperature Pulse Rate 77 68 Respiratory 19 Rate Blood Pressure 85/59 O2 Sat by Pulse 96 Oximetry Fraction of 40 Inspired Oxygen (FIO2) 10/04/23 10/04/23 05:45 06:35 Temperature 97.8 F Pulse Rate 66 61 Respiratory 21 Rate Blood Pressure 81/60 O2 Sat by Pulse 95 Oximetry Fraction of Inspired Oxygen (FIO2) Medical Decision Making - Medical Decision Making Was pt. sent in by a medical professional or institution (, PA, MANAGER STAR, urgent care, hospital, or [facility]...) When possible be specific @ -No Did you speak to anyone other than the patient for history (EMS, parent, family, police, friend...)? What history was obtained from this source @ -EMS as described above Did you review nursing and triage notes (agree or disagree)? Why? @ -I reviewed and agree with nursing and triage notes Were old charts reviewed (outside hosp., previous admission, EMS record, old EKG, old radiological studies, urgent care reports/EKG's, [facility] records)? Report findings @ -No old charts were reviewed Differential Diagnosis (chest pain, altered mental status, abdominal pain women, abdominal pain men, vaginal bleeding, musculoskeletal, weakness, fever, dyspnea, syncope, headache, dizziness, GI bleed, back pain, seizure, CVA, palpatations, mental health)? @ -Differential Dyspnea: Coronary syndrome, arrhythmia, tamponade, asthma, COPD, pulmonary embolism, pneumonia, pneumothorax, pulmonary effusion, anaphylaxis, diabetic ketoacidosis, flailed chest, pulmonary contusion, diaphragmatic rupture, anemia, neuromuscular, this is not meant to be an all-inclusive list. EKG interpreted by me (3pts min.). @ -see above X-rays interpreted by me (1pt min.). @ -X-ray shows findings concerning for pulmonary edema however it seems similar to previous x-ray from 09/16/2023 CT interpreted by me (1pt min.). @ -None done U/S interpreted by me (1pt. min.). @ -None done What testing was considered but not performed or refused? (CT, X-rays, U/S, labs)? Why? @ -None What meds were considered but not given or refused? Why? @ -None Did you discuss the management of the patient with other professionals (professionals i.e. , PA, MANAGER STAR, lab, RT, psych nurse, social science research assistant, mobile solutions architect, teacher, ict help desk officer, family service caseworker)? Give summary @ -Case discussed with Dr. Leon for admission Was smoking cessation discussed for >3mins.? @ -No Was critical care preformed (if so, how long)? @ -No Were there social determinants of health that impacted care today? How? (Homelessness, low income, unemployed, alcoholism, drug addiction, transportation, low edu. Level, literacy, decrease access to med. care, retirement, rehab)? @ -No Was there de-escalation of care discussed even if they declined (Discuss DNR or withdrawal of care, Hospice)? DNR status @ -Patient allegedly awaiting hospice arrangements. What co-morbidities impacted this encounter? (DM, HTN, Smoking, COPD, CAD, Cancer, CVA, ARF, Chemo, Hep., AIDS, mental health diagnosis, sleep apnea, morbid obesity)? @ -None Was patient admitted / discharged? Hospital course, mention meds given and route, prescriptions, significant lab abnormalities, going to OR and other pertinent info. @ -73-year-old male presents to emergency department after having pulled out his positive pressure ventilation that he is dependent on. Patient was allegedly hypoxic for possibly several hours. Vital signs upon arrival shows findings within acceptable limits. Laboratory evaluation obtained. Lucid. 9. Hemoglobin 9.2 which is around patient's baseline. Coag panel is unremarkable. ABG shows pCO2 of 51. Normal pH. Metabolic panel is within acceptable limits. Patient is altered. Suspect that there is some degree of hypoxic encephalopathy. It is unclear with patient's usual baseline is. According to EMS they state that there was no concern about his mentation. Undiagnosed new problem with uncertain prognosis? @ -No Drug Therapy requiring intensive monitoring for toxicity (Heparin, Nitro, Insulin, Cardizem)? @ -No Were any procedures done? @ -No Diagnosis/symptom? Acute, or Chronic, or Acute on Chronic? Uncomplicated (without systemic symptoms) or Complicated (systemic symptoms)? @ -Respiratory failure Side effects of treatment? @ -No Exacerbation, Progression, or Severe Exacerbation? @ -No Poses a threat to life or bodily function? How? (Chest pain, USA, MA, pneumonia, PE, COPD, DKA, ARF, appy, cholecystitis, CVA, Diverticulitis, Homicidal, Suicidal, threat to staff... and all critical care pts) @ -yes - Lab Data Result diagrams: 10/04/23 00:39 10/04/23 00:39 Lab Results 10/04/23 10/04/23 10/04/23 Range/Units 00:39 00:39 00:39 WBC 12.9 H (3.8-10.6) k/uL RBC 3.36 L (4.30-5.90) m/uL Hgb 9.2 L (13.0-17.5) gm/dL Hct 28.9 L (39.0-53.0) % MCV 86.1 (80.0-100.0) fL MCH 27.5 (25.0-35.0) pg MCHC 31.9 (31.0-37.0) g/dL RDW 18.1 H (11.5-15.5) % Plt Count 158 (150-450) k/uL MPV 8.3 Neutrophils % 70 % Lymphocytes % 20 % Monocytes % 6 % Eosinophils % 2 % Basophils % 0 % Neutrophils # 9.0 H (1.3-7.7) k/uL Lymphocytes # 2.6 (1.0-4.8) k/uL Monocytes # 0.7 (0-1.0) k/uL Eosinophils # 0.3 (0-0.7) k/uL Basophils # 0.0 (0-0.2) k/uL Hypochromasia Moderate Anisocytosis Slight PT 11.9 (10.0-12.5) sec INR 1.1 (<1.2) APTT 31.6 H (22.0-30.0) sec Sample Site ABG pH (7.35-7.45) ABG pCO2 (35-45) mmHg ABG pO2 (83-108) mmHg ABG HCO3 (21-25) mmol/L ABG Total CO2 (19-24) mmol/L ABG O2 Saturation (94-97) % ABG Base Excess mmol/L Eros Test VBG pH (7.31-7.41) VBG pCO2 (37-51) mmHg VBG HCO3 (24-28) mmol/L FiO2 % Sodium 137 (137-145) mmol/L Potassium 3.9 (3.5-5.1) mmol/L Chloride 94 L (98-107) mmol/L Carbon Dioxide 28 (22-30) mmol/L Anion Gap 15 mmol/L BUN 88 H (9-20) mg/dL Creatinine 2.14 H (0.66-1.25) mg/dL Est GFR (CKD-EPI)AfAm 34 (>60 ml/min/1.73 sqM) Est GFR (CKD-EPI)NonAf 30 (>60 ml/min/1.73 sqM) Glucose 83 (74-99) mg/dL Plasma Lactic Acid Shankar (0.7-2.0) mmol/L Calcium 9.1 (8.4-10.2) mg/dL Magnesium 1.9 (1.6-2.3) mg/dL Total Bilirubin 1.9 H (0.2-1.3) mg/dL AST 27 (17-59) U/L ALT 23 (4-49) U/L Alkaline Phosphatase 178 H (38-126) U/L Troponin I (0.000-0.034) ng/mL Total Protein 6.6 (6.3-8.2) g/dL Albumin 3.3 L (3.5-5.0) g/dL 10/04/23 10/04/23 10/04/23 Range/Units 00:39 00:39 00:39 WBC (3.8-10.6) k/uL RBC (4.30-5.90) m/uL Hgb (13.0-17.5) gm/dL Hct (39.0-53.0) % MCV (80.0-100.0) fL MCH (25.0-35.0) pg MCHC (31.0-37.0) g/dL RDW (11.5-15.5) % Plt Count (150-450) k/uL MPV Neutrophils % % Lymphocytes % % Monocytes % % Eosinophils % % Basophils % % Neutrophils # (1.3-7.7) k/uL Lymphocytes # (1.0-4.8) k/uL Monocytes # (0-1.0) k/uL Eosinophils # (0-0.7) k/uL Basophils # (0-0.2) k/uL Hypochromasia Anisocytosis PT (10.0-12.5) sec INR (<1.2) APTT (22.0-30.0) sec Sample Site ABG pH (7.35-7.45) ABG pCO2 (35-45) mmHg ABG pO2 (83-108) mmHg ABG HCO3 (21-25) mmol/L ABG Total CO2 (19-24) mmol/L ABG O2 Saturation (94-97) % ABG Base Excess mmol/L Eros Test VBG pH 7.41 (7.31-7.41) VBG pCO2 51 (37-51) mmHg VBG HCO3 32 H (24-28) mmol/L FiO2 % Sodium (137-145) mmol/L Potassium (3.5-5.1) mmol/L Chloride (98-107) mmol/L Carbon Dioxide (22-30) mmol/L Anion Gap mmol/L BUN (9-20) mg/dL Creatinine (0.66-1.25) mg/dL Est GFR (CKD-EPI)AfAm (>60 ml/min/1.73 sqM) Est GFR (CKD-EPI)NonAf (>60 ml/min/1.73 sqM) Glucose (74-99) mg/dL Plasma Lactic Acid Shankar 1.6 (0.7-2.0) mmol/L Calcium (8.4-10.2) mg/dL Magnesium (1.6-2.3) mg/dL Total Bilirubin (0.2-1.3) mg/dL AST (17-59) U/L ALT (4-49) U/L Alkaline Phosphatase (38-126) U/L Troponin I <0.012 (0.000-0.034) ng/mL Total Protein (6.3-8.2) g/dL Albumin (3.5-5.0) g/dL 10/04/23 Range/Units 05:05 WBC (3.8-10.6) k/uL RBC (4.30-5.90) m/uL Hgb (13.0-17.5) gm/dL Hct (39.0-53.0) % MCV (80.0-100.0) fL MCH (25.0-35.0) pg MCHC (31.0-37.0) g/dL RDW (11.5-15.5) % Plt Count (150-450) k/uL MPV Neutrophils % % Lymphocytes % % Monocytes % % Eosinophils % % Basophils % % Neutrophils # (1.3-7.7) k/uL Lymphocytes # (1.0-4.8) k/uL Monocytes # (0-1.0) k/uL Eosinophils # (0-0.7) k/uL Basophils # (0-0.2) k/uL Hypochromasia Anisocytosis PT (10.0-12.5) sec INR (<1.2) APTT (22.0-30.0) sec Sample Site R brachial ABG pH 7.42 (7.35-7.45) ABG pCO2 52 H (35-45) mmHg ABG pO2 95 (83-108) mmHg ABG HCO3 33 H (21-25) mmol/L ABG Total CO2 35 H (19-24) mmol/L ABG O2 Saturation 97.6 H (94-97) % ABG Base Excess 8.9 mmol/L Eros Test Yes VBG pH (7.31-7.41) VBG pCO2 (37-51) mmHg VBG HCO3 (24-28) mmol/L FiO2 40 % Sodium (137-145) mmol/L Potassium (3.5-5.1) mmol/L Chloride (98-107) mmol/L Carbon Dioxide (22-30) mmol/L Anion Gap mmol/L BUN (9-20) mg/dL Creatinine (0.66-1.25) mg/dL Est GFR (CKD-EPI)AfAm (>60 ml/min/1.73 sqM) Est GFR (CKD-EPI)NonAf (>60 ml/min/1.73 sqM) Glucose (74-99) mg/dL Plasma Lactic Acid Shankar (0.7-2.0) mmol/L Calcium (8.4-10.2) mg/dL Magnesium (1.6-2.3) mg/dL Total Bilirubin (0.2-1.3) mg/dL AST (17-59) U/L ALT (4-49) U/L Alkaline Phosphatase (38-126) U/L Troponin I (0.000-0.034) ng/mL Total Protein (6.3-8.2) g/dL Albumin (3.5-5.0) g/dL Disposition Clinical Impression: Respiratory failure Disposition: ADMITTED IP TO THIS HOSP Condition: Serious Referrals: Alison Leon MD [Primary Care Provider] - 1-2 days Decision Time: 07:08
[2023-10-04 01:20] LABS: Anisocytosis Slight; Basophils % (A) 0 %; Eosinophils # (A) 0.3 k/uL (0-0.7); Eosinophils % (A) 2 %; HCT 28.9 % (39.0-53.0); HGB 9.2 gm/dL (13.0-17.5); Hypochromasia Moderate; Lymphocytes # (A) 2.6 k/uL (1.0-4.8); Lymphocytes % (A) 20 %; MCH 27.5 pg (25.0-35.0); MCHC 31.9 g/dL (31.0-37.0); MCV 86.1 fL (80.0-100.0); Mean Platelet Volume 8.3; Monocytes # (A) 0.7 k/uL (0-1.0); Monocytes % (A) 6 %; Neutrophils % (A) 70 %; Platelet Count 158 k/uL (150-450); RBC 3.36 m/uL (4.30-5.90); RDW 18.1 % (11.5-15.5); WBC 12.9 k/uL (3.8-10.6)
[2023-10-04 01:22] LABS: VBG PH 7.41 (7.31-7.41)
[2023-10-04 01:31] LABS: ALT 23 U/L (4-49); AST 27 U/L (17-59); African American GFR (CKD) 34 (>60 ml/min/1.73 sqM); Albumin 3.3 g/dL (3.5-5.0); Alkaline Phosphatase 178 U/L (38-126); Anion Gap 15 mmol/L; Blood Urea Nitrogen 88 mg/dL (9-20); Calcium 9.1 mg/dL (8.4-10.2); Carbon Dioxide 28 mmol/L (22-30); Chloride 94 mmol/L (98-107); Glucose 83 mg/dL (74-99); Magnesium 1.9 mg/dL (1.6-2.3); Non-African American GFR(CKD) 30 (>60 ml/min/1.73 sqM); Potassium 3.9 mmol/L (3.5-5.1); Sodium 137 mmol/L (137-145); Total Bilirubin 1.9 mg/dL (0.2-1.3); Total Protein 6.6 g/dL (6.3-8.2)
[2023-10-04 02:50] LABS: INR 1.1 (<1.2); Partial Thromboplastin Time 31.6 sec (22.0-30.0); Prothrombin Time 11.9 sec (10.0-12.5)
--- NOTE | 2023-10-04 03:24 | XR ---
EXAM: XR Chest, 1 View CLINICAL HISTORY: ITS.REASON XR Reason: dyspnea TECHNIQUE: Frontal view of the chest. COMPARISON: No relevant prior studies available. IMPRESSION: Cardiomegaly. Severe pulmonary edema. Mild pleural effusion
[2023-10-04] MEDS ORDERED: IPRATROPIUM-ALBUTEROL 3 ML NEB INHALATION STA (04:20)
[2023-10-04] MEDS ORDERED: DEXAMETHASONE SOD PHOSPHATE 10 MG/ML 1 ML VIAL IV STA (04:20)
[2023-10-04 05:07] LABS: ABG Base Excess 8.9 mmol/L; ABG HCO3 33 mmol/L (21-25); ABG Oxygen Saturation 97.6 % (94-97); ABG PCO2 52 mmHg (35-45); ABG PH 7.42 (7.35-7.45); ABG PO2 95 mmHg (83-108); ABG TCO2 35 mmol/L (19-24); Allen Test Performed? Yes
[2023-10-04] MEDS ORDERED: NALOXONE 0.4 MG/ML 1 ML VIAL IV PRN (06:51)
--- NOTE | 2023-10-04 08:55 | CT ---
EXAMINATION TYPE: CT brain wo con CT DLP: 1090.4 mGycm, Automated exposure control for dose reduction was used. DATE OF EXAM: 10/04/2023 8:07 AM COMPARISON: CT 08/07/2023. CLINICAL INDICATION:Male, 73 years old with history of ams, altered mental status TECHNIQUE: Brain: Axial CT images of the brain were obtained with coronal and sagittal reformats created and rev iewed. Contrast used: None. Oral contrast used: None. FINDINGS: Brain: Extra-axial spaces: No abnormal extra-axial fluid collections. Ventricular system: Dilatation in proportion to cerebral atrophy. Cerebral parenchyma: No acute intraparenchymal hemorrhage or mass effect. The sorenson-white junction is well differentiated. Moderate generalized atrophy. Moderate patchy hypoattenuation throughout the ce rebral white matter, nonspecific but most likely due to chronic microvascular ischemic changes. Cerebellum: No acute abnormality Mass effect: No evidence of midline shift. Intracranial vasculature: Atherosclerotic calcifications of the intracranial vessels. Soft tissues: Normal. Calvarium/osseous structures: No depressed skull fracture. Paranasal sinuses and mastoid air cells: Mild scattered paranasal sinus disease, with mucosal thicken ing greatest in the right superior material in the left auditory canal, likely cerumen. Postop change s of the bilateral anterior globes. Visualized orbits: Orbital contents appear intact. Postop changes of the bilateral anterior globes. MRI is more sensitive for detecting acute processes such as infarct, and may be considered if clinica lly warranted. IMPRESSION: 1. No acute intracranial CT abnormality. 2. Moderate atrophy and chronic microvascular ischemic changes.
[2023-10-04] MEDS ORDERED: FUROSEMIDE 10 MG/ML 10 ML VIAL IV STA (09:39)
[2023-10-04] MEDS: FUROSEMIDE 100 MG in SODIUM CHLORIDE 0.9% 90 ML IV SCH ×2 (11:05→21:38)
[2023-10-04] MEDS ORDERED: IPRATROPIUM-ALBUTEROL 3 ML NEB INHALATION PRN (13:12)
--- NOTE | 2023-10-04 13:12 | P.CNPUL ---
History of Present Illness Consult date: 10/04/23 Requesting physician: Alison Leon Reason for consult: dyspnea, hypoxemia Chief complaint: Altered mental status, hypoxic History of present illness: This is 73-year-old male patient with a known history of congestive heart failure, asthma/COPD, obstructive sleep apnea with CPAP, chronic oxygen dependence, hyperlipidemia, hypertension, paroxysmal atrial fibrillation, chronic leg wounds, frequent readmissions for congestive heart failure and hypoxic respiratory failure. Patient was discharged 15 days ago for similar symptoms. He resides at a local extended care facility. The patient had been pulling off his CPAP device there and an unknown time of how long he had been without it and was found altered and hypoxemic. He was brought back to the emergency room early this morning for the same. Chest x-ray reveals cardiomegaly and severe pulmonary edema with mild pleural effusions. Computed tomography scan of the brain revealed no acute intracranial abnormalities. Moderate atrophy and chronic microvascular ischemic changes. White count 12.9. Hemoglobin 9.2. Platelets 158. Sodium 137. Potassium 3.9. Bicarb 28. BUN 88. Creatinine 2.14. AST 27. ALT 23. Troponin negative times one. ProBNP 3690. Arterial blood gases on 40% FiO2 revealed a PaO2 of 95, P CO2 of 52 and a t pH of 7.42. He was given a breathing treatment and Decadron. He is seen today in the emergency department. He remains arousable but unable to answer any questions. He is on BiPAP 12/6 at 40% FiO2 with the current 2 saturation 96%. He is afebrile. Hemodynamically stable. Review of Systems ROS unobtainable: due to mental status Past Medical History Past Medical History: Atrial Fibrillation, Asthma, Chest Pain / Angina, Heart Failure, GERD/Reflux, Hyperlipidemia, Hypertension, Osteoarthritis (OA), Pneumonia, Renal Disease, Sleep Apnea/CPAP/BIPAP Additional Past Medical History / Comment(s): [facility] [address] - nasal canula 2L during day, gout, in wheelchair or walker due to pain in left leg, poor circulation in legs,CKD stage 3, paroxysmal Afib, anemia, ch ronic venous stasis and lower extremity wounds History of Any Multi-Drug Resistant Organisms: None Reported Past Surgical History: Orthopedic Surgery, Tonsillectomy Additional Past Surgical History / Comment(s): LEFT WRIST ORIF, LEFT KNEE REPLACEMENT, bilateral cataract surgery Past Anesthesia/Blood Transfusion Reactions: No Reported Reaction Additional Past Anesthesia/Blood Transfusion Reaction / Comment(s): . Past Psychological History: Depression Smoking Status: Former smoker Past Alcohol Use History: None Reported Past Drug Use History: None Reported - Past Family History Mother Family Medical History: Congestive Heart Failure (CHF), Osteoarthritis (OA) Father Additional Family Medical History / Comment(s): FROM [place] Brother(s) Family Medical History: Cancer Additional Family Medical History / Comment(s): . Sister(s) Family Medical History: Deep Vein Thrombosis (DVT) Medications and Allergies Home Medications Medication Instructions Recorded Confirmed Type Sertraline [Zoloft] 100 mg PO HS@209904/04/17 09/16/23 History Atorvastatin [Lipitor] 20 mg PO HS@209907/14/19 09/16/23 History Tamsulosin [Flomax] 0.4 mg PO HS@209907/14/19 09/16/23 History Ipratropium-Albuterol Nebulize 3 ml INHALATION RT-Q6H@00,06,12,18 08/19/19 09/16/23 History [Duoneb 0.5 mg-3 mg/3 ml Soln] Acetaminophen Tab [Tylenol] 500 mg PO Q6H PRN 03/26/23 09/16/23 History Cholecalciferol [Vitamin D3 (25 50 mcg PO DAILY@0903/26/23 09/16/23 History Mcg = 1000 Iu)] Benzonatate [Tessalon Perles] 200 mg PO TID PRN cap 07/17/23 09/16/23 Rx Montelukast [Singulair] 10 mg PO HS@209908/07/23 09/16/23 History Omeprazole [PriLOSEC] 20 mg PO DAILY@0600 08/07/23 09/16/23 History Melatonin 10 mg PO HS PRN tab 08/11/23 09/16/23 Rx Ammonium Lactate Lotion 1 applic TOPICAL BID 08/23/23 09/16/23 History [Lac-Hydrin 12% Lotion] Metoprolol Tartrate [Lopressor] 37.5 mg PO BID@0900,209908/23/23 09/16/23 History allopurinoL 200 mg PO DAILY@0908/23/23 09/16/23 History Nystatin 100,000 Unit/gm Powd 1 applic TOPICAL BID #0 each 09/04/23 09/16/23 Rx [Mycostatin Powder] Artificial Tears-Hypromellose 1 drop BOTH EYES TID PRN 09/16/23 09/16/23 History [Artificial Tear Drops] Budesonide [Pulmicort] 1 mg INHALATION RT-BID@0900,2100 09/16/23 09/16/23 History Cyanocobalamin [Vitamin B-12] 1,000 mcg PO DAILY@0900 09/16/23 09/16/23 History Furosemide [Lasix] 80 mg PO BID@0900,1700 09/16/23 09/16/23 History Rivaroxaban [Xarelto] 15 mg PO DAILY@1700 09/16/23 09/16/23 History Spironolactone [Aldactone] 25 mg PO DAILY@0900 09/16/23 09/16/23 History metOLazone [Zaroxolyn] 2.5 mg PO MOFR 09/16/23 09/16/23 History predniSONE [Deltasone] See Taper PO DIRECTED 09/16/23 09/16/23 History Budesonide-Formot 160-4.5 Mcg 2 puff INHALATION RT-BID each 09/18/23 Rx [Symbicort 160-4.5 Mcg Inhaler] Dapagliflozin Propanediol [Farxiga] 10 mg PO DAILY tab 09/18/23 Rx Gabapentin [Neurontin] 300 mg PO HS@2100 #3 cap 09/18/23 Rx Nystatin 100,000 Unit/ml Susp 500,000 unit PO QID 7 Days ml 09/18/23 Rx [Mycostatin Oral Susp] guaiFENesin SYRUP 100MG/5ML 200 mg PO Q6HR PRN ml 09/18/23 Rx [Robitussin] Allergies Allergy/AdvReac Type Severity Reaction Status Date / Time No Known Allergies Allergy Verified 10/04/23 00:16 Physical Exam Vitals: Vital Signs Temp Pulse Resp BP Pulse Ox FiO2 10/04/23 12:27 66 18 96/53 93 L 10/04/23 11:42 88 18 91/52 96 10/04/23 11:06 68 17 100/56 96 10/04/23 11:04 40 10/04/23 10:28 80 19 91/51 96 11/04/23 10:01 80 19 84/48 96 10/04/23 09:03 64 18 91/50 100 10/04/23 07:40 40 10/04/23 06:35 97.8 F 61 21 81/60 95 10/04/23 05:45 66 10/04/23 05:28 68 10/04/23 04:40 77 19 85/59 96 10/04/23 04:19 40 10/04/23 03:25 64 23 87/62 96 10/04/23 01:37 75 33 H 115/86 92 L 10/04/23 01:00 77 18 90/57 94 L 10/04/23 00:28 71 18 90/57 100 10/04/23 00:20 40 10/04/23 00:16 96.9 F L 134 H 32 H 89/48 100 Intake and Output 10/03/23 10/04/23 10/04/23 22:59 06:59 14:59 Output Total 500 700 Balance -500 -700 Output: Urine 500 700 Other: Voiding Method Indwelling Catheter Weight 112.491 kg GENERAL EXAM: Arousable, morbidly obese, 73-year-old male, on BiPAP 11/05 at 40% FiO2, in mild respiratory distress. HEAD: Normocephalic. EYES: Normal reaction of pupils, equal size. NOSE: Clear with pink turbinates. THROAT: No erythema or exudates. NECK: No masses, no JVD. CHEST: No chest wall deformity. LUNGS: Equal air entry with bilateral crackles, diminished. CVS: S1 and S2 normal with no audible murmur, regular rhythm. ABDOMEN: No hepatosplenomegaly, normal bowel sounds, no guarding or rigidity. SPINE: No scoliosis or deformity SKIN: Edema and redness of the lower extremities, wrapped in bandages. CENTRAL NERVOUS SYSTEM: No focal deficits, tone is normal in all 4 extremities. EXTREMITIES: There is 2-3+ peripheral edema. Changes of chronic venous stasis. No clubbing, no cyanosis. Peripheral pulses are intact. Results - Laboratory Findings CBC and BMP: 10/04/23 00:39 10/04/23 00:39 ABG ABG pH 7.42 (7.35-7.45) 10/04/23 05:05 ABG pCO2 52 mmHg (35-45) H 10/04/23 05:05 ABG pO2 95 mmHg (83-108) 10/04/23 05:05 ABG O2 Saturation 97.6 % (94-97) H 10/04/23 05:05 PT/INR, D-dimer PT 11.9 sec (10.0-12.5) 10/04/23 00:39 INR 1.1 (<1.2) 10/04/23 00:39 Abnormal lab findings: Abnormal Labs 10/04/23 10/04/23 10/04/23 00:39 00:39 00:39 WBC 12.9 H RBC 3.36 L Hgb 9.2 L Hct 28.9 L RDW 18.1 H Neutrophils # 9.0 H APTT 31.6 H ABG pCO2 ABG HCO3 ABG Total CO2 ABG O2 Saturation VBG HCO3 Chloride 94 L BUN 88 H Creatinine 2.14 H Total Bilirubin 1.9 H Alkaline Phosphatase 178 H Albumin 3.3 L 10/04/23 10/04/23 00:39 05:05 WBC RBC Hgb Hct RDW Neutrophils # APTT ABG pCO2 52 H ABG HCO3 33 H ABG Total CO2 35 H ABG O2 Saturation 97.6 H VBG HCO3 32 H Chloride BUN Creatinine Total Bilirubin Alkaline Phosphatase Albumin - Diagnostic Findings Chest x-ray: image reviewed Assessment and Plan Assessment: Acute exacerbation of chronic diastolic CHF, chest x-ray shows cardiomegaly, sever pulmonary edema, and right sided pleural effusion. Echocardiogram 08/25/23 showed preserved left ventricular systolic function, ejection fraction 50-55% Altered mental status secondary to above Acute exacerbation of chronic bronchial asthma/COPD Acute on chronic hypoxemic and hypercapnic respiratory failure, currently on BiPAP over 6 and 40% FiO2 Multiple admissions due to the above Paroxysmal atrial fibrillation., currently in sinus rhythm, anticoagulation with Xarelto Chronic kidney disease stage III Anemia of chronic disease Obstructive sleep apnea syndrome, maintained on CPAP. Chronic venous stasis and right lower extremity wounds Benign essential hypertension History of hyperlipidemia Morbid obesity Poor overall functional performance based on the above-mentioned multiple comorbidities correction resident Plan: The patient was seen and evaluated Chest x-ray, labs and medications reviewed Give Lasix 80 mg IVP 1 now Initiate a Lasix drip at 10 mg per hour DuoNeb inhalations 4 times a day and when necessary Pulmicort and Perforomist inhalations twice a day Titrate the FiO2 as tolerated CHF/COPD Navigator for frequent readmissions CODE STATUS to be addressed We will continue to follow and make further recommendations based on his clinical status I have personally seen and examined the patient, performed the documentation and the assessment and plan as written. Number of minutes spent on the visit: 20.
[2023-10-04] MEDS ORDERED: IPRATROPIUM-ALBUTEROL 3 ML NEB INHALATION SCH (16:00)
[2023-10-04] MEDS: ZINC OXIDE PASTE (Z-GUARD) 1 APPLIC APPLIC TOPICAL PRN (17:24)
[2023-10-04] MEDS: SODIUM CHLORIDE 0.9% 1,000 ML IV SCH (18:04)
[2023-10-04] MEDS ORDERED: ARTIFICIAL TEARS-HYPROMELLOSE DROPS 15 ML BTL BOTH EYES PRN (18:54)
[2023-10-04] MEDS: FORMOTEROL FUMARATE 20 MCG/2 ML NEBU INHALATION SCH (20:27)
[2023-10-04] MEDS: SYMBICORT 160-4.5 MCG INHALER INHALATION SCH (20:28)
[2023-10-04] MEDS: BUDESONIDE 1 MG/2 ML NEBU INHALATION SCH (20:28)
[2023-10-04] MEDS: IPRATROPIUM-ALBUTEROL 3 ML NEB INHALATION SCH (20:29)
[2023-10-04] MEDS: TAMSULOSIN 0.4 MG CAP.ER.24H PO SCH (21:38)
[2023-10-04] MEDS: SERTRALINE 100 MG TAB PO SCH (21:38)
[2023-10-04] MEDS: METOPROLOL TARTRATE 12.5 MG TAB PO SCH (21:38)
[2023-10-04] MEDS: ATORVASTATIN 20 MG TAB PO SCH (21:38)
[2023-10-04] MEDS: AMMONIUM LACTATE 12% LOTION 225 GM BTL TOPICAL SCH (21:38)
[2023-10-04] MEDS: MONTELUKAST 10 MG TAB PO SCH (21:38)
[2023-10-04] MEDS: GABAPENTIN 300 MG CAP PO SCH (21:38)
[2023-10-05] MEDS ORDERED: IPRATROPIUM-ALBUTEROL 3 ML NEB INHALATION SCH
[2023-10-05] MEDS: SODIUM CHLORIDE 0.9% 1,000 ML IV SCH ×2 (05:32→23:13)
[2023-10-05] MEDS: FUROSEMIDE 100 MG in SODIUM CHLORIDE 0.9% 90 ML IV SCH ×3 (05:56→20:17)
[2023-10-05] MEDS: SYMBICORT 160-4.5 MCG INHALER INHALATION SCH (07:34)
[2023-10-05] MEDS: BUDESONIDE 1 MG/2 ML NEBU INHALATION SCH ×3 (07:35→20:41)
[2023-10-05] MEDS: FORMOTEROL FUMARATE 20 MCG/2 ML NEBU INHALATION SCH ×3 (07:35→20:42)
[2023-10-05] MEDS: IPRATROPIUM-ALBUTEROL 3 ML NEB INHALATION SCH ×5 (07:35→20:42)
[2023-10-05] MEDS: METOPROLOL TARTRATE 12.5 MG TAB PO SCH ×2 (09:48→20:00)
[2023-10-05] MEDS: PANTOPRAZOLE 40 MG TABLET PO SCH (09:48)
[2023-10-05] MEDS: CYANOCOBALAMIN 500 MCG TAB PO SCH (09:48)
[2023-10-05] MEDS: CHOLECALCIFEROL 25 MCG (1000 IU) TABLET PO SCH (09:48)
[2023-10-05] MEDS: DAPAGLIFLOZIN PROPANEDIOL 10 MG TABLET PO SCH (09:48)
[2023-10-05] MEDS: AMMONIUM LACTATE 12% LOTION 225 GM BTL TOPICAL SCH ×2 (09:49→20:02)
--- NOTE | 2023-10-05 09:55 | P.HPIM ---
History of Present Illness Patient is an 3-year-old the with known history of COPD can start failure chronic diastolic dysfunction multiple hospitalizations and [facility] came in with acute respiratory failure patient is present and BiPAP is alert and arousable patient the was barely arousable and today morning. Patient has both hypercapnic and hypoxic respiratory failure chest x-ray showing significant bilateral infiltrates consistent with pulmonary edema. Patient was started on IV Lasix drip at this time patient has chronic kidney disease stage IV proBNP is not although not highly elevated. Patient does have wheezing on exam. Denied any significant cough without sputum production. Patient is on BiPAP with settings of 11/15 at at 40% FiO2 saturating 96%. Patient blood pressure is on the low normal side. REVIEW OF SYSTEMS: Limited due to his clinical condition PHYSICAL EXAMINATION: GENERAL: The patient is is arousable and BiPAP, not in any acute distress. Well developed, well nourished. HEENT: Pupils are round and equally reacting to light. EOMI. No scleral icterus. No conjunctival pallor. Normocephalic, atraumatic. No pharyngeal erythema. No thyromegaly. CARDIOVASCULAR: S1 and S2 present. No murmurs, rubs, or gallops. PULMONARY: Significant expiratory wheezing. ABDOMEN: Soft, nontender, nondistended, normoactive bowel sounds. No palpable organomegaly. MUSCULOSKELETAL: No joint swelling or deformity. EXTREMITIES: No cyanosis, clubbing, mild pedal edema NEUROLOGICAL: Limited due to his clinical condition although doesn't appear to have any focal weakness SKIN: No rashes. 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 -Proximal atrial fibrillation currently sinus rhythm on anti-correlation as an auto -Anemia of chronic disease and chronic kidney disease -Obstructive sleep apnea uses CPAP machine as an outpatient -Hypertension -Hyperlipidemia -Obesity -Generalized deconditioning due to chronic medical problems and the multiple hospitalizations DVT prophylaxis: On anti-coagulation Patient's overall prognosis is poor Past Medical History Past Medical History: Atrial Fibrillation, Asthma, Chest Pain / Angina, Heart Failure, GERD/Reflux, Hyperlipidemia, Hypertension, Osteoarthritis (OA), Pne umonia, Renal Disease, Sleep Apnea/CPAP/BIPAP Additional Past Medical History / Comment(s): uses BiPap at night at [facility] on the [address] - nasal canula 2L during day, gout, in wheelchair or walker due to pain in left leg, poor circulation in legs,CKD stage 3, paroxysmal Afib, anemia, chronic venous stasis and lower extremity wounds History of Any Multi-Drug Resistant Organisms: None Reported Past Surgical History: Orthopedic Surgery, Tonsillectomy Additional Past Surgical History / Comment(s): LEFT WRIST ORIF, LEFT KNEE REPLACEMENT, bilateral cataract surgery Past Anesthesia/Blood Transfusion Reactions: No Reported Reaction Additional Past Anesthesia/Blood Transfusion Reaction / Comment(s): . Past Psychological History: Depression Additional Psychological History / Comment(s): Patient states he has some short term memory loss Smoking Status: Former smoker Past Alcohol Use History: None Reported Additional Past Alcohol Use History / Comment(s): . Past Drug Use History: None Reported - Past Family History Mother Family Medical History: Congestive Heart Failure (CHF), Osteoarthritis (OA) Father Additional Family Medical History / Comment(s): FROM [place] Brother(s) Family Medical History: Cancer Additional Family Medical History / Comment(s): . Sister(s) Family Medical History: Deep Vein Thrombosis (DVT) Medications and Allergies Home Medications Medication Instructions Recorded Confirmed Type Sertraline [Zoloft] 100 mg PO HS@209904/04/17 10/04/23 History Atorvastatin [Lipitor] 20 mg PO HS@209907/14/19 10/04/23 History Tamsulosin [Flomax] 0.4 mg PO HS@209907/14/19 10/04/23 History Ipratropium-Albuterol Nebulize 3 ml INHALATION RT-Q6H@00,06,12,18 08/19/19 10/04/23 History [Duoneb 0.5 mg-3 mg/3 ml Soln] Acetaminophen Tab [Tylenol] 500 mg PO Q6H PRN 03/26/23 10/04/23 History Cholecalciferol [Vitamin D3 (25 50 mcg PO DAILY@0900 03/26/23 10/04/23 History Mcg = 1000 Iu)] Benzonatate [Tessalon Perles] 200 mg PO TID PRN cap 07/17/23 10/04/23 Rx Montelukast [Singulair] 10 mg PO HS@209908/07/23 10/04/23 History Omeprazole [PriLOSEC] 20 mg PO DAILY@0600 08/07/23 10/04/23 History Melatonin 10 mg PO HS PRN tab 08/11/23 10/04/23 Rx Ammonium Lactate Lotion 1 applic TOPICAL BID 08/23/23 10/04/23 History [Lac-Hydrin 12% Lotion] Metoprolol Tartrate [Lopressor] 37.5 mg PO BID@0900,2100 08/23/23 10/04/23 Histo ry allopurinoL 200 mg PO DAILY@0900 08/23/23 10/04/23 History Artificial Tears-Hypromellose 1 drop BOTH EYES TID PRN 09/16/23 10/04/23 History [Artificial Tear Drops] Cyanocobalamin [Vitamin B-12] 1,000 mcg PO DAILY@0900 09/16/23 10/04/23 History Furosemide [Lasix] 80 mg PO BID@0900,1700 09/16/23 10/04/23 History Rivaroxaban [Xarelto] 15 mg PO DAILY@1700 09/16/23 10/04/23 History Spironolactone [Aldactone] 25 mg PO DAILY@0900 09/16/23 10/04/23 History metOLazone [Zaroxolyn] 2.5 mg PO MOFR 09/16/23 10/04/23 History Budesonide-Formot 160-4.5 Mcg 2 puff INHALATION RT-BID each 09/18/23 10/04/23 Rx [Symbicort 160-4.5 Mcg Inhaler] Dapagliflozin Propanediol [Farxiga] 10 mg PO DAILY tab 09/18/23 10/04/23 Rx Gabapentin [Neurontin] 300 mg PO HS@2100 #3 cap 09/18/23 10/04/23 Rx guaiFENesin SYRUP 100MG/5ML 200 mg PO Q6HR PRN ml 09/18/23 10/04/23 Rx [Robitussin] Allergies Allergy/AdvReac Type Severity Reaction Status Date / Time No Known Allergies Allergy Verified 10/04/23 00:16 Physical Exam Vitals: Vital Signs Temp Pulse Pulse Resp BP BP Pulse Ox 10/05/23 07:58 72 10/05/23 07:46 70 10/05/23 07:45 70 10/05/23 07:38 68 10/05/23 07:35 10/05/23 04:08 10/05/23 04:00 98.2 F 57 L 18 112/57 96 10/05/23 02:00 61 18 10/05/23 00:00 98.2 F 61 18 103/53 94 L 10/04/23 23:47 10/04/23 20:58 64 10/04/23 20:44 68 10/04/23 20:29 68 10/04/23 20:00 97.9 F 128 H 18 109/61 96 10/04/23 17:56 115 H 12 109/59 97 10/04/23 16:34 62 14 96/54 96 10/04/23 15:52 64 10/04/23 15:40 10/04/23 15:38 64 10/04/23 15:37 10/04/23 14:27 71 14 113/67 97 10/04/23 12:27 66 18 96/53 93 L 10/04/23 11:42 88 18 91/52 96 10/04/23 11:06 68 17 100/56 96 10/04/23 11:04 FiO2 10/05/23 07:58 10/05/23 07:46 10/05/23 07:45 10/05/23 07:38 10/05/23 07:35 40 10/05/23 04:08 40 10/05/23 04:00 10/05/23 02:00 10/05/23 00:00 10/04/23 23:47 40 10/04/23 20:58 10/04/23 20:44 10/04/23 20:29 40 10/04/23 20:00 10/04/23 17:56 10/04/23 16:34 10/04/23 15:52 10/04/23 15:40 40 10/04/23 15:38 10/04/23 15:37 40 10/04/23 14:27 10/04/23 12:27 10/04/23 11:42 10/04/23 11:06 10/04/23 11:04 40 Intake and Output 10/04/23 10/05/23 10/05/23 23:59 06:59 14:59 Intake Total Output Total Balance Intake: Intake, IV Titration Amount Furosemide 100 mg In Sodium Chloride 0.9% 90 ml @ 10 MG/HR 10 mls/hr IV .Q10H [facility] Rx#: [id number] Output: Urine Other: Voiding Method Results CBC & Chem 7: 10/04/23 00:39 10/04/23 00:39 Thrombosis Risk Factor Assmnt - Choose All That Apply Any of the Below Risk Factors Present?: Yes Each Factor Represents 1 point: Obesity (BMI >25) Other Risk Factors: Yes Each Risk Factor Represents 2 Points: Age 61-74 years Other congenital or acquired thrombophilia - If yes, enter type in comment: No Thrombosis Risk Factor Assessment Total Risk Factor Score: 3 Thrombosis Risk Factor Assessment Level: Moderate Risk
[2023-10-05] MEDS: methylPREDNISolone SOD SUCCI 40 MG/ML 1 ML VIAL IV SCH ×2 (11:42→20:02)
--- NOTE | 2023-10-05 13:47 | P.PN ---
Subjective Progress Note Date: 10/05/23 This is 73-year-old male patient with a known history of congestive heart failure, asthma/COPD, obstructive sleep apnea with CPAP, chronic oxygen dependence, hyperlipidemia, hypertension, paroxysmal atrial fibrillation, chronic leg wounds, frequent readmissions for congestive heart failure and hypoxic respiratory failure. Patient was discharged 15 days ago for similar symptoms. He resides at a local extended care facility. The patient had been pulling off his CPAP device there and an unknown time of how long he had been without it and was found altered and hypoxemic. He was brought back to the emergency room early this morning for the same. Chest x-ray reveals cardiomegaly and severe pulmonary edema with mild pleural effusions. Computed tomography scan of the brain revealed no acute intracranial abnormalities. Moderate atrophy and chronic microvascular ischemic changes. White count 12.9. Hemoglobin 9.2. Platelets 158. Sodium 137. Potassium 3.9. Bicarb 28. BUN 88. Creatinine 2.14. AST 27. ALT 23. Troponin negative times one. ProBNP 3690. Arterial blood gases on 40% FiO2 revealed a PaO2 of 95, P CO2 of 52 and at pH of 7.42. He was given a breathing treatment and Decadron. He is seen today in the emergency department. He remains arousable but unable to answer any que stions. He is on BiPAP 12/6 at 40% FiO2 with the current 2 saturation 96%. He is afebrile. Hemodynamically stable. The patient is seen today 10/05/2023 in follow-up on the selective care unit. H e is better today compared to yesterday. Currently on the off the BiPAP which she has been utilizing 12/6 at 40% FiO2. Currently on 4 L nasal cannula. He has less lower extremity edema. He is responding well to the Lasix drip which is at 10 mg per hour. Currently in a -2.8 L balance. Lynn catheter remains in place. Continue on DuoNeb inhalations, Azmacort and Perforomist inhalations, Solu-Medrol. He is anticoagulated with Xarelto. Objective - Vital Signs Vital signs: Vital Signs Temp 98.1 F 10/05/23 09:45 Pulse 94 10/05/23 11:30 Resp 17 10/05/23 11:30 BP 98/50 10/05/23 11:30 Pulse Ox 93 L 10/05/23 11:30 FiO2 40 10/05/23 07:35 Intake & Output 10/04/23 10/05/23 10/05/23 19:59 06:59 18:59 Intake Total Output Total Balance Intake: Intake, IV Titration Amount Furosemide 100 mg In Sodium Chloride 0.9% 90 ml @ 10 MG/HR 10 mls/hr IV .Q10H [facility] Rx#: [id number] Output: Urine Other: Voiding Method Indwelling Catheter - Exam GENERAL EXAM: Awake, alert, morbidly obese, 73-year-old male, on 4 liters nasal cannula alternating with BiPAP 12/6 at 40% FiO2, in no acute distress. HEAD: Normocephalic. EYES: Normal reaction of pupils, equal size. NOSE: Clear with pink turbinates. THROAT: No erythema or exudates. NECK: No masses, no JVD. CHEST: No chest wall deformity. LUNGS: Equal air entry with bilateral crackles, diminished. CVS: S1 and S2 normal with no audible murmur, regular rhythm. ABDOMEN: No hepatosplenomegaly, normal bowel sounds, no guarding or rigidity. SPINE: No scoliosis or deformity SKIN: Edema and redness of the lower extremities, wrapped in bandages. CENTRAL NERVOUS SYSTEM: No focal deficits, tone is normal in all 4 extremities. EXTREMITIES: There is 2-3+ peripheral edema. Changes of chronic venous stasis. No clubbing, no cyanosis. Peripheral pulses are intact. - Labs CBC & Chem 7: 10/04/23 00:39 10/04/23 00:39 Assessment and Plan Assessment: Acute exacerbation of chronic diastolic CHF, chest x-ray shows cardiomegaly, sever pulmonary edema, and right sided pleural effusion. Echocardiogram 08/25/23 showed preserved left ventricular systolic function, ejection fraction 50-55% Altered mental status secondary to above Acute exacerbation of chronic bronchial asthma/COPD Acute on chronic hypoxemic and hypercapnic respiratory failure, currently on BiPAP over 6 and 40% FiO2 Multiple admissions due to the above Paroxysmal atrial fibrillation., currently in sinus rhythm, anticoagulation with Xarelto Chronic kidney disease stage III Anemia of chronic disease Obstructive sleep apnea syndrome, maintained on CPAP. Chronic venous stasis and right lower extremity wounds Benign essential hypertension History of hyperlipidemia Morbid obesity Poor overall functional performance based on the above-mentioned multiple comorbidities long-term resident Plan: The patient was seen and evaluated Medications reviewed Continue Lasix drip at 10 mg per hour Follow-up labs in the a.m. Titrate the FiO2 as tolerated DO NOT RESUSCITATE/DO NOT INTUBATE CODE STATUS We will continue to follow I have personally seen and examined the patient, performed the documentation and the assessment and plan as written. Number of minutes spent on the visit: 10.
[2023-10-05] MEDS: RIVAROXABAN 15 MG TAB PO SCH (16:09)
--- NOTE | 2023-10-05 18:50 | P.CNNES ---
History of Present Illness Consult date: 10/05/23 History of Present Illness: The pt is a 73 y/o male who is seen in neurologic consultation on 2022, in collaboration with Mayte Harris, via teleneurology. History is obtained from the chart. The pt is unable to state why he is in the hospital. The pt is reportedly CPAP dependent and presented to the ER for hypoxia, dyspnea and altered mental status. According the ER note, "he supposed to wear his CPAP machine however, he continually refuses and takes his CPAP machine off when staff is not looking. It is unclear when he was last seen normal. He was discovered by correction staff with his CPAP machine off. He also appeared to be lethargic. EMS was called. He was hypoxic into the 70s without any O2 on. Work up in the ER included a CT scan of the brain. This was negative for acute infarct and hemorrhage. There was atrophy, consistent with age. CXR revealed severe pulmonary edema. Review of Systems Unable to obtain secondary to mental status of pt. Past Medical History Past Medical History: Atrial Fibrillation, Asthma, Chest Pain / Angina, Heart Failure, GERD/Reflux, Hyperlipidemia, Hypertension, Osteoarthritis (OA), Pneumonia, Renal Disease, Sleep Apnea/CPAP/BIPAP Additional Past Medical History / Comment(s): uses BiPap at night at [facility] [address] - nasal canula 2L during day, gout, in wheelchair or walker due to pain in left leg, poor circulation in legs,CKD stage 3, paroxysmal Afib, anemia, chronic venous stasis and lower extremity wounds History of Any Multi-Drug Resistant Organisms: None Reported Past Surgical History: Orthopedic Surgery, Tonsillectomy Additional Past Surgical History / Comment(s): LEFT WRIST ORIF, LEFT KNEE REPLACEMENT, bilateral cataract surgery Past Anesthesia/Blood Transfusion Reactions: No Reported Reaction Additional Past Anesthesia/Blood Transfusion Reaction / Comment(s): . Past Psychological History: Depression Additional Psychological History / Comment(s): Patient states he has some short term memory loss Smoking Status: Former smoker Past Alcohol Use History: None Reported Additional Past Alcohol Use History / Comment(s): . Past Drug Use History: None Reported - Past Family History Mother Family Medical History: Congestive Heart Failure (CHF), Osteoarthritis (OA) Father Additional Family Medical History / Comment(s): FROM [place] Brother(s) Family Medical History: Cancer Additional Family Medical History / Comment(s): . Sister(s) Family Medical History: Deep Vein Thrombosis (DVT) Medications and Allergies Home Medications Medication Instructions Recorded Confirmed Type Sertraline [Zoloft] 100 mg PO HS@209904/04/17 10/04/23 History Atorvastatin [Lipitor] 20 mg PO HS@209907/14/19 10/04/23 History Tamsulosin [Flomax] 0.4 mg PO HS@209907/14/19 10/04/23 History Ipratropium-Albuterol Nebulize 3 ml INHALATION RT-Q6H@00,06,12,18 08/19/19 1 12/04/22 History [Duoneb 0.5 mg-3 mg/3 ml Soln] Acetaminophen Tab [Tylenol] 500 mg PO Q6H PRN 03/26/23 10/04/23 History Cholecalciferol [Vitamin D3 (25 50 mcg PO DAILY@0900 03/26/23 10/04/23 History Mcg = 1000 Iu)] Benzonatate [Tessalon Perles] 200 mg PO TID PRN cap 07/17/23 10/04/23 Rx Montelukast [Singulair] 10 mg PO HS@209908/07/23 10/04/23 History Omeprazole [PriLOSEC] 20 mg PO DAILY@0600 08/07/23 10/04/23 History Melatonin 10 mg PO HS PRN tab 08/11/23 10/04/23 Rx Ammonium Lactate Lotion 1 applic TOPICAL BID 08/23/23 10/04/23 History [Lac-Hydrin 12% Lotion] Metoprolol Tartrate [Lopressor] 37.5 mg PO BID@0900,209908/23/23 10/04/23 History allopurinoL 200 mg PO DAILY@0900 08/23/23 10/04/23 History Artificial Tears-Hypromellose 1 drop BOTH EYES TID PRN 09/16/23 10/04/23 History [Artificial Tear Drops] Cyanocobalamin [Vitamin B-12] 1,000 mcg PO DAILY@0900 09/16/23 10/04/23 History Furosemide [Lasix] 80 mg PO BID@0900,1700 09/16/23 10/04/23 History Rivaroxaban [Xarelto] 15 mg PO DAILY@1700 09/16/23 10/04/23 History Spironolactone [Aldactone] 25 mg PO DAILY@0900 09/16/23 10/04/23 History metOLazone [Zaroxolyn] 2.5 mg PO MOFR 09/16/23 10/04/23 History Budesonide-Formot 160-4.5 Mcg 2 puff INHALATION RT-BID each 09/18/23 10/04/23 Rx [Symbicort 160-4.5 Mcg Inhaler] Dapagliflozin Propanediol [Farxiga] 10 mg PO DAILY tab 09/18/23 10/04/23 Rx Gabapentin [Neurontin] 300 mg PO HS@2100 #3 cap 09/18/23 10/04/23 Rx guaiFENesin SYRUP 100MG/5ML 200 mg PO Q6HR PRN ml 09/18/23 10/04/23 Rx [Robitussin] Allergies Allergy/AdvReac Type Severity Reaction Status Date / Time No Known Allergies Allergy Verified 10/04/23 00:16 Physical Examination - Vital Signs Vital Signs: Vital Signs Temp Pulse Pulse Resp BP BP Pulse Ox 10/05/23 07:45 70 10/05/23 07:38 68 10/05/23 07:35 10/05/23 04:08 10/05/23 04:00 98.2 F 57 L 18 112/57 96 10/05/23 02:00 61 18 10/05/23 00:00 98.2 F 61 18 103/53 94 L 10/04/23 23:47 10/04/23 20:58 64 10/04/23 20:44 68 10/04/23 20:29 68 10/04/23 20:00 97.9 F 128 H 18 109/61 96 10/04/23 17:56 115 H 12 109/59 97 10/04/23 16:34 62 14 96/54 96 10/04/23 15:52 64 10/04/23 15:40 10/04/23 15:38 64 10/04/23 15:37 10/04/23 14:27 71 14 113/67 97 10/04/23 12:27 66 18 96/53 93 L 10/04/23 11:42 88 18 91/52 96 10/04/23 11:06 68 17 100/56 96 10/04/23 11:04 10/04/23 10:28 80 19 91/51 96 10/04/23 10:01 80 19 84/48 96 10/04/23 09:03 64 18 91/50 100 FiO2 10/05/23 07:45 10/05/23 07:38 10/05/23 07:35 40 10/05/23 04:08 40 10/05/23 04:00 10/05/23 02:00 10/05/23 00:00 10/04/23 23:47 40 10/04/23 20:58 10/04/23 20:44 10/04/23 20:29 40 10/04/23 20:00 10/04/23 17:56 10/04/23 16:34 10/04/23 15:52 10/04/23 15:40 40 10/04/23 15:38 10/04/23 15:37 40 10/04/23 14:27 10/04/23 12:27 10/04/23 11:42 10/04/23 11:06 10/04/23 11:04 40 10/04/23 10:28 10/04/23 10:01 10/04/23 09:03 Intake and Output 10/04/23 10/05/23 10/05/23 23:59 06:59 14:59 Intake Total Output Total Balance Intake: Intake, IV Titration Amount Furosemide 100 mg In Sodium Chloride 0.9% 90 ml @ 10 MG/HR 10 mls/hr IV .Q10H [facility] Rx#: [id number] Output: Urine Other: Voiding Method General: the pt is recling in the bed. He is in no acute distress HEENT: Head is atraumatic, normocephalic. There is no scleral icterus. Fundus not visualized. Mucous membranes dry. Neck: Supple without carotid bruits Heart: Regular rate and rhythm Lungs: Loose cough Extremities: Edema with dressing on feet Neurological examination Mental status: The pt is awake and alert. He is oriented to his name, , age, "hospital". He is unable to state the city. He states "[place]" when asked what city he is in. Speech is clear. The pt is easily distracted. Cranial nerves: Pupils are equal at 3 mm and reactive. Visual man are intact to threat. Extraocular movements intact. No nystagmus. Facial sensation grossly intact. There is no facial asymmetry. Hearing is grossly intact. Uvula and palate are midline. Shoulder shrug is symmetric. Tongue protrudes midline. Motor: Bilateral baggage porter, triceps and hip flexor strengths 4/5. Bilateral biceps strength 5/5 Coordination: There is a bilateral intention tremor with finger to nose testing . There is a tremor of the lower extremities. There is bilateral asterixis. Finger to nose, heel to patel and rapid alternating movements are intact. Sensation: Grossly intact to light touch throughout Deep tendon reflexes: 1+/4+ in the bilateral uppers. Lower extremity reflexes absent. Plantars not assessed. Gait: Not assessed Results - Laboratory Findings CBC and BMP: 10/04/23 00:39 10/04/23 00:39 Abnormal Lab Findings: Abnormal Labs 10/04/23 10/04/23 10/04/23 00:39 00:39 00:39 WBC 12.9 H RBC 3.36 L Hgb 9.2 L Hct 28.9 L RDW 18.1 H Neutrophils # 9.0 H APTT 31.6 H ABG pCO2 ABG HCO3 ABG Total CO2 ABG O2 Saturation VBG HCO3 Chloride 94 L BUN 88 H Creatinine 2.14 H Total Bilirubin 1.9 H Alkaline Phosphatase 178 H Albumin 3.3 L 10/04/23 10/04/23 00:39 05:05 WBC RBC Hgb Hct RDW Neutrophils # APTT ABG pCO2 52 H ABG HCO3 33 H ABG Total CO2 35 H ABG O2 Saturation 97.6 H VBG HCO3 32 H Chloride BUN Creatinine Total Bilirubin Alkaline Phosphatase Albumin Assessment and Plan Assessment: 1. Toxic metabolic encephalopathy secondary to hypercapnic and hypoxemic respiratory failure, with acute kidney injury 2. Asterixis, possible elevated ammonia level or secondary to acute kidney injury Plan: 1. consider checking ammonia level 2. Your medical care Thank you for allowing us to participate in the care of this pt. No further neurologic intervention is needed at this time. Neurology will sign off at this time. Please call [facility] neurologist with questions or concerns Time with Patient: Greater than 30
[2023-10-05] MEDS: GABAPENTIN 300 MG CAP PO SCH (19:59)
[2023-10-05] MEDS: BENZONATATE 100 MG CAP PO PRN (20:00)
[2023-10-05] MEDS: MELATONIN 5 MG TABLET PO PRN (20:00)
[2023-10-05] MEDS: TAMSULOSIN 0.4 MG CAP.ER.24H PO SCH (20:01)
[2023-10-05] MEDS: SERTRALINE 100 MG TAB PO SCH (20:01)
[2023-10-05] MEDS: ATORVASTATIN 20 MG TAB PO SCH (20:01)
[2023-10-05] MEDS: ZINC OXIDE PASTE (Z-GUARD) 1 APPLIC APPLIC TOPICAL PRN (20:03)
[2023-10-05] MEDS: guaiFENesin SYRUP 100MG/5ML 200 MG/10 ML CUP PO PRN (20:03)
[2023-10-05] MEDS: ACETAMINOPHEN TAB 500 MG TAB PO PRN (20:05)
[2023-10-05] MEDS: MONTELUKAST 10 MG TAB PO SCH (20:05)
[2023-10-05 20:17] LABS: Glucose,Whole Blood 193 mg/dL (70-110)
[2023-10-06] MEDS: FUROSEMIDE 100 MG in SODIUM CHLORIDE 0.9% 90 ML IV SCH (05:36)
[2023-10-06 06:29] LABS: Glucose,Whole Blood 175 mg/dL (70-110)
[2023-10-06] MEDS: PANTOPRAZOLE 40 MG TABLET PO SCH (06:35)
--- NOTE | 2023-10-06 07:20 | XR ---
EXAMINATION TYPE: XR chest 1V portable DATE OF EXAM: 10/06/2023 COMPARISON: 12/04/2022 INDICATION: CHF TECHNIQUE: Single frontal view of the chest is obtained. FINDINGS: The heart size is prominent. The pulmonary vasculature is prominent. Diffuse increased lung markings are present bilaterally. This is greater on the left. The right sided infiltrate is improving. IMPRESSION: 1. Slight improvement of congestive heart failure. Continued follow-up is recommended
[2023-10-06] MEDS: CYANOCOBALAMIN 500 MCG TAB PO SCH (08:43)
[2023-10-06] MEDS: CHOLECALCIFEROL 25 MCG (1000 IU) TABLET PO SCH (08:44)
[2023-10-06] MEDS: AMMONIUM LACTATE 12% LOTION 225 GM BTL TOPICAL SCH ×2 (08:44→21:08)
[2023-10-06] MEDS: METOPROLOL TARTRATE 12.5 MG TAB PO SCH ×2 (08:44→21:10)
[2023-10-06] MEDS: methylPREDNISolone SOD SUCCI 40 MG/ML 1 ML VIAL IV SCH ×2 (08:44→21:09)
[2023-10-06] MEDS: DAPAGLIFLOZIN PROPANEDIOL 10 MG TABLET PO SCH (08:44)
[2023-10-06 08:49] LABS: Anisocytosis Slight; HCT 27.8 % (39.0-53.0); HGB 8.5 gm/dL (13.0-17.5); Hypochromasia Marked; MCH 26.7 pg (25.0-35.0); MCHC 30.5 g/dL (31.0-37.0); MCV 87.4 fL (80.0-100.0); Mean Platelet Volume 8.2; Platelet Count 208 k/uL (150-450); RBC 3.19 m/uL (4.30-5.90); RDW 17.3 % (11.5-15.5); WBC 8.9 k/uL (3.8-10.6)
[2023-10-06] MEDS: FORMOTEROL FUMARATE 20 MCG/2 ML NEBU INHALATION SCH ×2 (08:57→20:17)
[2023-10-06] MEDS: IPRATROPIUM-ALBUTEROL 3 ML NEB INHALATION SCH ×4 (08:57→20:17)
[2023-10-06] MEDS: BUDESONIDE 1 MG/2 ML NEBU INHALATION SCH ×2 (08:57→20:17)
[2023-10-06 09:11] LABS: African American GFR (CKD) 37 (>60 ml/min/1.73 sqM); Calcium 9.4 mg/dL (8.4-10.2); Chloride 90 mmol/L (98-107); Glucose 158 mg/dL (74-99); Non-African American GFR(CKD) 32 (>60 ml/min/1.73 sqM); Potassium 3.5 mmol/L (3.5-5.1); Sodium 143 mmol/L (137-145)
[2023-10-06 09:20] LABS: Anion Gap 18 mmol/L
[2023-10-06 09:23] LABS: Blood Urea Nitrogen 101 mg/dL (9-20); Carbon Dioxide 35 mmol/L (22-30)
[2023-10-06 12:11] LABS: Glucose,Whole Blood 191 mg/dL (70-110)
--- NOTE | 2023-10-06 12:54 | P.PN ---
Subjective Progress Note Date: 10/06/23 This is 73-year-old male patient with a known history of congestive heart failure, asthma/COPD, obstructive sleep apnea with CPAP, chronic oxygen dependence, hyperlipidemia, hypertension, paroxysmal atrial fibrillation, chronic leg wounds, frequent readmissions for congestive heart failure and hypoxic respiratory failure. Patient was discharged 15 days ago for similar symptoms. He resides at a local extended care facility. The patient had been pulling off his CPAP device there and an unknown time of how long he had been without it and was found altered and hypoxemic. He was brought back to the emergency room early this morning for the same. Chest x-ray reveals cardiomegaly and severe pulmonary edema with mild pleural effusions. Computed tomography scan of the brain revealed no acute intracranial abnormalities. Moderate atrophy and chronic microvascular ischemic changes. White count 12.9. Hemoglobin 9.2. Platelets 158. Sodium 137. Potassium 3.9. Bicarb 28. BUN 88. Creatinine 2.14. AST 27. ALT 23. Troponin negative times one. ProBNP 3690. Arterial blood gases on 40% FiO2 revealed a PaO2 of 95, P CO2 of 52 and at pH of 7.42. He was given a breathing treatment and Decadron. He is seen today in the emergency department. He remains arousable but unable to answer any que stions. He is on BiPAP 12/6 at 40% FiO2 with the current 2 saturation 96%. He is afebrile. Hemodynamically stable. The patient is seen today 10/05/2023 in follow-up on the selective care unit. H e is better today compared to yesterday. Currently on the off the BiPAP which she has been utilizing 12/6 at 40% FiO2. Currently on 4 L nasal cannula. He has less lower extremity edema. He is responding well to the Lasix drip which is at 10 mg per hour. Currently in a -2.8 L balance. Lynn catheter remains in place. Continue on DuoNeb inhalations, Azmacort and Perforomist inhalations, Solu-Medrol. He is anticoagulated with Xarelto. The patient is seen today 10/06/2023 in follow-up on the selective care unit. He is sitting up in a chair. Awake and alert in no acute distress. Currently on 4 L nasal cannula with O2 saturations in the 90s. He does utilize BiPAP 12/6 and 40% FiO2 at nighttime and during the day while napping. He is continued on the Lasix drip at 10 mg per hour. Currently in a -1.7 L balance. Lynn catheter remains in place. White count 8.9. Hemoglobin 8.5. Platelets 208. Sodium 143. Potassium 3.5. Bicarb 35. BUN 101. Creatinine 2.00. Glucose 158. He is continued on DuoNeb inhalations, Pulmicort and Perforomist inhalations, Solu-Medrol and Singulair. Anticoagulated with Xarelto. Remains on Tessalon Perles. Objective - Vital Signs Vital signs: Vital Signs Temp 97.5 F L 10/06/23 08:00 Pulse 72 10/06/23 09:19 Resp 18 10/06/23 08:00 BP 99/56 10/06/23 08:00 Pulse Ox 94 L 10/06/23 08:58 FiO2 40 10/06/23 03:31 Intake & Output 10/05/23 10/06/23 10/06/23 18:59 06:59 18:59 Intake Total 876 734.500 480 Output Total 1100 2200 Balance -224 -1465.500 480 Intake: Intake, IV Titration 100 134.500 Amount Furosemide 100 mg In 100 134.500 Sodium Chloride 0.9% 90 ml @ 10 MG/HR 10 mls/hr IV .Q10H [facility] Rx#: [id number] Oral 776 600 480 Output: Urine 1100 2200 Other: Voiding Method Indwelling Catheter Indwelling Catheter - Exam GENERAL EXAM: Awake, alert, 73-year-old male, up in a chair, on 4 liters nasal cannula alternating with BiPAP 12/6 at 40% FiO2, in no acute distress. HEAD: Normocephalic. EYES: Normal reaction of pupils, equal size. NOSE: Clear with pink turbinates. THROAT: No erythema or exudates. NECK: No masses, no JVD. CHEST: No chest wall deformity. LUNGS: Equal air entry with bilateral crackles, diminished. CVS: S1 and S2 normal with no audible murmur, regular rhythm. ABDOMEN: No hepatosplenomegaly, normal bowel sounds, no guarding or rigidity. SPINE: No scoliosis or deformity SKIN: Edema and redness of the lower extremities, wrapped in bandages. CENTRAL NERVOUS SYSTEM: No focal deficits, tone is normal in all 4 extremities. EXTREMITIES: There is 2-3+ peripheral edema. Changes of chronic venous stasis. No clubbing, no cyanosis. Peripheral pulses are intact. - Labs CBC & Chem 7: 10/06/23 08:19 10/06/23 08:19 Labs: Abnormal Lab Results - Last 24 Hours (Table) 10/05/23 10/06/23 10/06/23 Range/Units 20:15 06:28 08:19 RBC 3.19 L (4.30-5.90) m/uL Hgb 8.5 L (13.0-17.5) gm/dL Hct 27.8 L (39.0-53.0) % MCHC 30.5 L (31.0-37.0) g/dL RDW 17.3 H (11.5-15.5) % Chloride (98-107) mmol/L Carbon Dioxide (22-30) mmol/L BUN (9-20) mg/dL Creatinine (0.66-1.25) mg/dL Glucose (74-99) mg/dL POC Glucose (mg/dL) 193 H 175 H (70-110) mg/dL 10/06/23 10/06/23 Range/Units 08:19 12:06 RBC (4.30-5.90) m/uL Hgb (13.0-17.5) gm/dL Hct (39.0-53.0) % MCHC (31.0-37.0) g/dL RDW (11.5-15.5) % Chloride 90 L (98-107) mmol/L Carbon Dioxide 35 H (22-30) mmol/L BUN 101 H* (9-20) mg/dL Creatinine 2.00 H (0.66-1.25) mg/dL Glucose 158 H (74-99) mg/dL POC Glucose (mg/dL) 191 H (70-110) mg/dL Assessment and Plan Assessment: Acute exacerbation of chronic diastolic CHF, chest x-ray shows cardiomegaly, sever pulmonary edema, and right sided pleural effusion. Echocardiogram 08/25/23 showed preserved left ventricular systolic function, ejection fraction 50-55% Altered mental status secondary to above, recovered Acute exacerbation of chronic bronchial asthma/COPD Acute on chronic hypoxemic and hypercapnic respiratory failure, currently on 4 L nasal cannula alternating with BiPAP 12 over 6 and 40% FiO2 Multiple admissions due to the above Paroxysmal atrial fibrillation., currently in sinus rhythm, anticoagulation with Xarelto Chronic kidney disease stage III Anemia of chronic disease Obstructive sleep apnea syndrome, maintained on CPAP. Chronic venous stasis and right lower extremity wounds Benign essential hypertension History of hyperlipidemia Morbid obesity Poor overall functional performance based on the above-mentioned multiple c omorbidities [facility] resident Plan: The patient was seen and evaluated Medications and labs reviewed Discontinue Lasix drip Resume Lasix 80 mg by mouth twice a day Follow-up labs in the a.m. Titrate the FiO2 as tolerated DO NOT RESUSCITATE/DO NOT INTUBATE CODE STATUS We will continue to follow I have personally seen and examined the patient, performed the documentation and the assessment and plan as written. Number of minutes spent on the visit: 10.
[2023-10-06 16:44] LABS: Glucose,Whole Blood 192 mg/dL (70-110)
[2023-10-06] MEDS: RIVAROXABAN 15 MG TAB PO SCH (17:17)
[2023-10-06] MEDS: FUROSEMIDE 80 MG TAB PO SCH (17:17)
[2023-10-06 20:16] LABS: Glucose,Whole Blood 219 mg/dL (70-110)
[2023-10-06] MEDS: TAMSULOSIN 0.4 MG CAP.ER.24H PO SCH (21:10)
[2023-10-06] MEDS: guaiFENesin SYRUP 100MG/5ML 200 MG/10 ML CUP PO PRN (21:10)
[2023-10-06] MEDS: MONTELUKAST 10 MG TAB PO SCH (21:10)
[2023-10-06] MEDS: ATORVASTATIN 20 MG TAB PO SCH (21:10)
[2023-10-06] MEDS: GABAPENTIN 300 MG CAP PO SCH (21:10)
[2023-10-06] MEDS: SERTRALINE 100 MG TAB PO SCH (21:10)
[2023-10-06] MEDS: SODIUM CHLORIDE 0.9% 1,000 ML IV SCH (21:43)
[2023-10-07 06:16] LABS: Glucose,Whole Blood 182 mg/dL (70-110)
[2023-10-07] MEDS: PANTOPRAZOLE 40 MG TABLET PO SCH (06:24)
[2023-10-07] MEDS: methylPREDNISolone SOD SUCCI 40 MG/ML 1 ML VIAL IV SCH (08:22)
[2023-10-07] MEDS: IPRATROPIUM-ALBUTEROL 3 ML NEB INHALATION SCH ×4 (08:42→21:35)
[2023-10-07] MEDS: BUDESONIDE 1 MG/2 ML NEBU INHALATION SCH (08:42)
[2023-10-07] MEDS: FORMOTEROL FUMARATE 20 MCG/2 ML NEBU INHALATION SCH (08:42)
[2023-10-07] MEDS: CHOLECALCIFEROL 25 MCG (1000 IU) TABLET PO SCH (08:55)
[2023-10-07] MEDS: CYANOCOBALAMIN 500 MCG TAB PO SCH (09:00)
[2023-10-07] MEDS: FUROSEMIDE 80 MG TAB PO SCH ×2 (09:03→17:06)
[2023-10-07] MEDS: METOPROLOL TARTRATE 12.5 MG TAB PO SCH ×2 (09:04→20:19)
[2023-10-07] MEDS: AMMONIUM LACTATE 12% LOTION 225 GM BTL TOPICAL SCH ×2 (09:11→20:19)
[2023-10-07 09:58] LABS: African American GFR (CKD) 44 (>60 ml/min/1.73 sqM); Calcium 9.5 mg/dL (8.4-10.2); Chloride 89 mmol/L (98-107); Glucose 153 mg/dL (74-99); Non-African American GFR(CKD) 38 (>60 ml/min/1.73 sqM); Potassium 3.7 mmol/L (3.5-5.1); Sodium 142 mmol/L (137-145)
[2023-10-07 10:09] LABS: Anion Gap 17 mmol/L
--- NOTE | 2023-10-07 10:10 | P.CONS ---
History of Present Illness - Reason for Consult Consult date: 10/07/23 wound care - History of Present Illness This is a 73-year-old patient with past medical history significant for hyperlipidemia, hypertension, sleep apnea, venous insufficiency. Patient is being seen on [facility] [address] for nonhealing ulceration to bilateral lower extremities. Patient has a open ulceration to the left patel with fat layer exposure measuring approximately 0.3 X 0.2 x 0.1 cm Slough and minimal granulation noted to the wound bed no tunneling or undermining noted. The periwound does show erythema and irritation. The right lower extremity open ulcerations Limited to skin breakdown measuring approximately 1.2 X 0.4 x 0.1 cm minimal slough and granulation noted the periwound does show erythema. Review Of Systems: Constitutional: No fever, no chills, no night sweats. No weight change. No weakness, fatigue or lethargy. No daytime sleepiness. Integumentary:reports wounds, no lesions. No rash or pruritus. No unusual bruising. No change in hair or nails. Physical exam: General Appearance: Alert, cooperative, no distress, appears stated age. Skin: See HPI all other Skin color, texture, tugor normal, no rashes or lesions. Neurologic: Alert oriented x3 Assessment: 1. Nonhealing ulceration Limited to skin breakdown to other part of left lower extremity 2. Nonhealing ulceration Limited to skin breakdown other part of right lower extremity 3. Chronic venous insufficiency with ulceration Plan: 1. Left/Right lower extremities: apply honey gel, border foam wrap with Toribio wrap to control swelling. Elevate legs for 30 minutes at least 3 times a day. Thank you for the consultation any questions please contact the wound care center DNP note has been reviewed and discussed with Dr. Parkinson and the impression and plan of care has been directed as dictated. Past Medical History Past Medical History: Atrial Fibrillation, Asthma, Chest Pain / Angina, Heart Failure, GERD/Reflux, Hyperlipidemia, Hypertension, Osteoarthritis (OA), Pneumonia, Renal Disease, Sleep Apnea/CPAP/BIPAP Additional Past Medical History / Comment(s): uses Bi[place]ap at night [facility] [place] [address] - nasal canula 2L during day, gout, in wheelchair or walker due to pain in left leg, poor circulation in legs,CKD stage 3, paroxysmal Afib, anemia, chronic venous stasis and lower extremity wounds History of Any Multi-Drug Resistant Organisms: None Reported Past Surgical History: Orthopedic Surgery, Tonsillectomy Additional Past Surgical History / Comment(s): LEFT WRIST ORIF, LEFT KNEE REPLACEMENT, bilateral cataract surgery Past Anesthesia/Blood Transfusion Reactions: No Reported Reaction Additional Past Anesthesia/Blood Transfusion Reaction / Comm: . Past Psychological History: Depression Additional Psychological History / Comment(s): Patient states he has some short term memory loss Smoking Status: Former smoker Past Alcohol Use History: None Reported Additional Past Alcohol Use History / Comment(s): . Past Drug Use History: None Reported - Past Family History Mother Family Medical History: Congestive Heart Failure (CHF), Osteoarthritis (OA) Father Additional Family Medical History / Comment(s): FROM [place] Brother(s) Family Medical History: Cancer Additional Family Medical History / Comment(s): . Sister(s) Family Medical History: Deep Vein Thrombosis (DVT) Medications and Allergies Home Medications Medication Instructions Recorded Confirmed Type Sertraline [Zoloft] 100 mg PO HS@209904/04/17 10/04/23 History Atorvastatin [Lipitor] 20 mg PO HS@209907/14/19 10/04/23 History Tamsulosin [Flomax] 0.4 mg PO HS@209907/14/19 10/04/23 History Ipratropium-Albuterol Nebulize 3 ml INHALATION RT-Q6H@00,06,12,18 08/19/19 10/04/23 History [Duoneb 0.5 mg-3 mg/3 ml Soln] Acetaminophen Tab [Tylenol] 500 mg PO Q6H PRN 03/26/23 10/04/23 History Cholecalciferol [Vitamin D3 (25 50 mcg PO DAILY@89903/26/23 10/04/23 History Mcg = 1000 Iu)] Benzonatate [Tessalon Perles] 200 mg PO TID PRN cap 07/17/23 10/04/23 Rx Montelukast [Singulair] 10 mg PO HS@209908/07/23 10/04/23 History Omeprazole [PriLOSEC] 20 mg PO DAILY@0600 08/07/23 10/04/23 History Melatonin 10 mg PO HS PRN tab 08/11/23 10/04/23 Rx Ammonium Lactate Lotion 1 applic TOPICAL BID 08/23/23 10/04/23 History [Lac-Hydrin 12% Lotion] Metoprolol Tartrate [Lopressor] 37.5 mg PO BID@0900,2100 08/23/23 10/04/23 History allopurinoL 200 mg PO DAILY@0900 08/23/23 10/04/23 History Artificial Tears-Hypromellose 1 drop BOTH EYES TID PRN 09/16/23 10/04/23 History [Artificial Tear Drops] Cyanocobalamin [Vitamin B-12] 1,000 mcg PO DAILY@0900 09/16/23 10/04/23 History Furosemide [Lasix] 80 mg PO BID@0900,1700 09/16/23 10/04/23 History Rivaroxaban [Xarelto] 15 mg PO DAILY@1700 09/16/23 10/04/23 History Spironolactone [Aldactone] 25 mg PO DAILY@0900 09/16/23 10/04/23 History metOLazone [Zaroxolyn] 2.5 mg PO MOFR 09/16/23 10/04/23 History Budesonide-Formot 160-4.5 Mcg 2 puff INHALATION RT-BID each 09/18/23 10/04/23 Rx [Symbicort 160-4.5 Mcg Inhaler] Dapagliflozin Propanediol [Farxiga] 10 mg PO DAILY tab 09/18/23 10/04/23 Rx Gabapentin [Neurontin] 300 mg PO HS@2100 #3 cap 09/18/23 10/04/23 Rx guaiFENesin SYRUP 100MG/5ML 200 mg PO Q6HR PRN ml 09/18/23 10/04/23 Rx [Robitussin] Allergies Allergy/AdvReac Type Severity Reaction Status Date / Time No Known Allergies Allergy Verified 10/04/23 00:16 Physical Exam Vitals: Vital Signs Temp Pulse Pulse Resp BP Pulse Ox FiO2 10/07/23 09:05 68 10/07/23 08:53 64 10/07/23 08:52 64 10/07/23 08:42 68 98 10/07/23 08:00 97.6 F 62 16 106/62 97 10/07/23 03:30 97.7 F 61 17 104/62 99 40 10/07/23 02:56 40 11/07/23 02:00 64 17 10/07/23 00:00 97.6 F 64 17 105/45 98 40 10/06/23 23:34 40 10/06/23 20:48 66 10/06/23 20:29 68 10/06/23 20:28 68 10/06/23 20:17 64 10/06/23 20:00 97.6 F 60 17 100/59 97 10/06/23 17:06 82 10/06/23 16:57 76 10/06/23 16:00 97.7 F 68 18 114/57 92 L 10/06/23 13:56 64 10/06/23 13:02 84 10/06/23 12:49 78 Intake and Output 10/06/23 10/07/23 10/07/23 22:59 06:59 14:59 Intake Total 250 240 Output Total 1000 1150 Balance -750 -1150 240 Intake: IV 10 0.9 10 Oral 240 240 Output: Urine 1000 1150 Uretheral (Lynn) 500 750 Other: Voiding Method Indwelling Catheter Indwelling Catheter Weight 102.9 kg Results CBC & Chem 7: 10/06/23 08:19 10/06/23 08:19 Labs: Abnormal Lab Results - Last 24 Hours (Table) 10/06/23 10/06/23 10/06/23 Range/Units 12:06 16:43 20:14 POC Glucose (mg/dL) 191 H 192 H 219 H (70-110) mg/dL 10/07/23 Range/Units 06:15 POC Glucose (mg/dL) 182 H (70-110) mg/dL Assessment and Plan (1) Non-pressure chronic ulcer of other part of left lower leg limited to breakdown of skin Current Visit: Yes Status: Acute Code(s): L97.821 - NON-PRS CHR ULCER OTH PRT L LOW LEG LIMITED TO BRKDWN SKIN SNOMED Code(s): 37727388861210512 (2) Chronic venous hypertension (idiopathic) with ulcer and inflammation of bilateral lower extremity Current Visit: No Status: Acute Code(s): I87.333 - CHRONIC VENOUS HTN W ULC ER AND INFLAM OF BILATERAL LOW EXTRM SNOMED Code(s): 719222797537885 (3) Non-pressure chronic ulcer of other part of right lower leg limited to breakdown of skin Current Visit: No Status: Acute Code(s): L97.811 - NON-PRS CHR ULCER OTH PRT R LOW LEG LIMITED TO BRKDWN SKIN SNOMED Code(s): 76917410517707950
[2023-10-07 10:15] LABS: Blood Urea Nitrogen 107 mg/dL (9-20); Carbon Dioxide 36 mmol/L (22-30)
[2023-10-07 11:15] LABS: Glucose,Whole Blood 140 mg/dL (70-110)
--- NOTE | 2023-10-07 12:36 | P.NPCON ---
History of Present Illness - Reason for Consult acute renal failure - History of Present Illness Patient is a 73-year-old male with history of COPD, CHF, chronic kidney disease NKF stage IIIa with previous creatinine 1.1-1.4 mg/dL earlier in August 2023. Patient has had previous episodes of acute kidney injury. Serum creatinine 1.6 on 09/18/2023. Patient has had admissions with volume overload with improvement in volume status with diuresis. He is admitted to the hospital again with complaints of shortness of breath and mental status changes. Chest x-ray shows evidence of CHF and pulmonary edema. Patient was started on Lasix drip and subsequently switched to oral Lasix on 10/06/2023. 24 hour urine output at 2.8 L for last 24 hours. Blood pressure has been on the lower side with systolic in the 90s. Currently with indwelling Lynn catheter. Serum creatinine 2.1 on initial admission and decreased to 1.7 today. Shortness of breath has improved. EF 50-55% on echocardiogram on 08/25/2023 Review of Systems As per HPI Past Medical History Past Medical History: Atrial Fibrillation, Asthma, Chest Pain / Angina, Heart F ailure, GERD/Reflux, Hyperlipidemia, Hypertension, Osteoarthritis (OA), Pneumonia, Renal Disease, Sleep Apnea/CPAP/BIPAP Additional Past Medical History / Comment(s): uses BiPap at night at [facility] on the [address] - nasal canula 2L during day, gout, in wheelchair or walker due to pain in left leg, poor circulation in legs,CKD stage 3, paroxysmal Afib, anemia, chronic venous stasis and lower extremity wounds History of Any Multi-Drug Resistant Organisms: None Reported Past Surgical History: Orthopedic Surgery, Tonsillectomy Additional Past Surgical History / Comment(s): LEFT WRIST ORIF, LEFT KNEE R EPLACEMENT, bilateral cataract surgery Past Anesthesia/Blood Transfusion Reactions: No Reported Reaction Additional Past Anesthesia/Blood Transfusion Reaction / Comment(s): . Past Psychological History: Depression Additional Psychological History / Comment(s): Patient states he has some short term memory loss Smoking Status: Former smoker Past Alcohol Use History: None Reported Additional Past Alcohol Use History / Comment(s): . Past Drug Use History: None Reported - Past Family History Mother Family Medical History: Congestive Heart Failure (CHF), Osteoarthritis (OA) Father Additional Family Medical History / Comment(s): FROM [place] Brother(s) Family Medical History: Cancer Additional Family Medical History / Comment(s): . Sister(s) Family Medical History: Deep Vein Thrombosis (DVT) Medications and Allergies Home Medications Medication Instructions Recorded Confirmed Type Sertraline [Zoloft] 100 mg PO HS@209904/04/17 10/04/23 History Atorvastatin [Lipitor] 20 mg PO HS@209907/14/19 10/04/23 History Tamsulosin [Flomax] 0.4 mg PO HS@209907/14/19 10/04/23 History Ipratropium-Albuterol Nebulize 3 ml INHALATION RT-Q6H@00,06,12,08/19/19 10/04/23 History [Duoneb 0.5 mg-3 mg/3 ml Soln] Acetaminophen Tab [Tylenol] 500 mg PO Q6H PRN 03/26/23 10/04/23 History Cholecalciferol [Vitamin D3 (25 50 mcg PO DAILY@0900 03/26/23 10/04/23 History Mcg = 1000 Iu)] Benzonatate [Tessalon Perles] 200 mg PO TID PRN cap 07/17/23 10/04/23 Rx Montelukast [Singulair] 10 mg PO HS@209908/07/23 10/04/23 History Omeprazole [PriLOSEC] 20 mg PO DAILY@0600 08/07/23 10/04/23 History Melatonin 10 mg PO HS PRN tab 08/11/23 10/04/23 Rx Ammonium Lactate Lotion 1 applic TOPICAL BID 08/23/23 10/04/23 History [Lac-Hydrin 12% Lotion] Metoprolol Tartrate [Lopressor] 37.5 mg PO BID@0900,209908/23/23 10/04/23 History allopurinoL 200 mg PO DAILY@0900 08/23/23 10/04/23 History Artificial Tears-Hypromellose 1 drop BOTH EYES TID PRN 09/16/23 10/04/23 History [Artificial Tear Drops] Cyanocobalamin [Vitamin B-12] 1,000 mcg PO DAILY@0900 09/16/23 10/04/23 History Furosemide [Lasix] 80 mg PO BID@0900,1700 09/16/23 10/04/23 History Rivaroxaban [Xarelto] 15 mg PO DAILY@1700 09/16/23 10/04/23 History Spironolactone [Aldactone] 25 mg PO DAILY@0900 09/16/23 10/04/23 History metOLazone [Zaroxolyn] 2.5 mg PO MOFR 09/16/23 10/04/23 History Budesonide-Formot 160-4.5 Mcg 2 puff INHALATION RT-BID each 09/18/23 10/04/23 Rx [Symbicort 160-4.5 Mcg Inhaler] Dapagliflozin Propanediol [Farxiga] 10 mg PO DAILY tab 09/18/23 10/04/23 Rx Gabapentin [Neurontin] 300 mg PO HS@2100 #3 cap 09/18/23 10/04/23 Rx guaiFENesin SYRUP 100MG/5ML 200 mg PO Q6HR PRN ml 09/18/23 10/04/23 Rx [Robitussin] Allergies Allergy/AdvReac Type Severity Reaction Status Date / Time No Known Allergies Allergy Verified 10/04/23 00:16 Physical Exam Vitals: Vital Signs Temp Pulse Pulse Resp BP Pulse Ox FiO2 10/07/23 12:16 64 10/07/23 12:05 60 10/07/23 11:41 97.5 F L 71 18 115/66 99 10/07/23 10:40 62 16 10/07/23 09:05 68 10/07/23 08:53 64 10/07/23 08:52 64 10/07/23 08:42 68 98 10/07/23 08:00 97.6 F 62 16 106/62 97 10/07/23 03:30 97.7 F 61 17 104/62 99 40 10/07/23 02:56 40 10/07/23 02:00 64 17 10/07/23 00:00 97.6 F 64 17 105/45 98 40 10/06/23 23:34 40 10/06/23 20:48 66 10/06/23 20:29 68 10/06/23 20:28 68 10/06/23 20:17 64 10/06/23 20:00 97.6 F 60 17 100/59 97 10/06/23 17:06 82 10/06/23 16:57 76 10/06/23 16:00 97.7 F 68 18 114/57 92 L 10/06/23 13:56 64 10/06/23 13:02 84 10/06/23 12:49 78 Intake and Output 10/06/23 10/07/23 10/07/23 22:59 06:59 14:59 Intake Total 250 480 Output Total 1000 1150 250 Balance -750 -1150 230 Intake: IV 10 0.9 10 Oral 240 480 Output: Urine 1000 1150 250 Uretheral (Lynn) 500 750 Other: Voiding Method Indwelling Catheter Indwelling Catheter Weight 102.9 kg Patient is awake, comfortable, in no acute distress Alert oriented 3 Examination of the heart S1 and S2 Examination of the lungs bilateral breath sounds are heard Abdomen is soft obese nontender Examination lower extremity shows significant edema bilaterally [employer] AIDE exam grossly intact Results - Lab Results Most recent lab results ABG pH 7.42 (7.35-7.45) 10/04/23 05:05 ABG pCO2 52 mmHg (35-45) H 10/04/23 05:05 ABG pO2 95 mmHg (83-108) 10/04/23 05:05 ABG HCO3 33 mmol/L (21-25) H 10/04/23 05:05 ABG O2 Saturation 97.6 % (94-97) H 10/04/23 05:05 Calcium 9.5 mg/dL (8.4-10.2) 10/07/23 08:18 Magnesium 1.9 mg/dL (1.6-2.3) 10/04/23 00:39 10/06/23 08:19 10/07/23 08:18 Assessment and Plan Assessment: 1. Acute kidney injury, cardiorenal, currently improved post diuresis. No evidence of obstruction on previous ultrasound on 08/31/2023. BUN disproportionately elevated secondary to steroids 2. Acute diastolic heart failure. EF 50-55% on echocardiogram in 08/25/2023 3. Volume overload status post diuresis currently switched to oral Lasix from Lasix drip. 4. Acute hypoxic respiratory failure with hypercapnia 5. Paroxysmal A. fib 6. Obesity Plan: Continue with current dose of oral Lasix Repeat labs in a.m. Salt and fluid restriction post discharge Follow-up as outpatient closely for titration of diuretics.
--- NOTE | 2023-10-07 12:41 | P.PN ---
Subjective Progress Note Date: 10/07/23 Principal diagnosis: Shortness of breath. This is 73-year-old male patient with a known history of congestive heart failure, asthma/COPD, obstructive sleep apnea with CPAP, chronic oxygen dependence, hyperlipidemia, hypertension, paroxysmal atrial fibrillation, chronic leg wounds, frequent readmissions for congestive heart failure and hypoxic respiratory failure. Patient was discharged 15 days ago for similar symptoms. He resides at a local extended care facility. The patient had been pulling off his CPAP device there and an unknown time of how long he had been without it and was found altered and hypoxemic. He was brought back to the emergency room early this morning for the same. Chest x-ray reveals cardiomegaly and severe pulmonary edema with mild pleural effusions. Computed tomography scan of the brain revealed no acute intracranial abnormalities. Moderate atrophy and chronic microvascular ischemic changes. White count 12.9. Hemoglobin 9.2. Platelets 158. Sodium 137. Potassium 3.9. Bicarb 28. BUN 88. Creatinine 2.14. AST 27. ALT 23. Troponin negative times one. ProBNP 3690. Arterial blood gases on 40% FiO2 revealed a PaO2 of 95, P CO2 of 52 and at pH of 7.42. He was given a breathing treatment and Decadron. He is seen today in the emergency department. He remains arousable but unable to answer any questions. He is on BiPAP 12/6 at 40% FiO2 with the current 2 saturation 96%. He is afebrile. Hemodynamically stable. The patient is seen today 10/05/2023 in follow-up on the selective care unit. He is better today compared to yesterday. Currently on the off the BiPAP which she has been utilizing 12/6 at 40% FiO2. Currently on 4 L nasal cannula. He has less lower extremity edema. He is responding well to the Lasix drip which is at 10 mg per hour. Currently in a -2.8 L balance. Lynn catheter remains in place. Continue on DuoNeb inhalations, Azmacort and Perforomist inhalations, Solu-Medrol. He is anticoagulated with Xarelto. The patient is seen today 10/06/2023 in follow-up on the selective care unit. He is sitting up in a chair. Awake and alert in no acute distress. Currently on 4 L nasal cannula with O2 saturations in the 90s. He does utilize BiPAP 12/6 and 40% FiO2 at nighttime and during the day while napping. He is continued on the Lasix drip at 10 mg per hour. Currently in a -1.7 L balance. Lynn catheter remains in place. White count 8.9. Hemoglobin 8.5. Platelets 208. Sodium 143. Potassium 3.5. Bicarb 35. BUN 101. Creatinine 2.00. Glucose 158. He is continued on DuoNeb inhalations, Pulmicort and Perforomist inhalations, Solu-Medrol and Singulair. Anticoagulated with Xarelto. Remains on Tessalon Perles. Progress note dated 10/07/2023. 73-year-old male seen today in room 382. Currently, the patient is on 4 L of oxygen, by nasal cannula. The patient also uses BiPAP, with settings of 12/6, and 40%. The patient is not receiving any IV fluids. He is improving. Today, we converted to Solu-Medrol to prednisone 20 mg a day, and convert his budesonide and formoterol, to Symbicort, 160/4.5, 2 puffs twice a day. Laboratory data today includes a sodium 142, potassium 3.7, chlorides 89, CO2 36, anion gap 17, BUN 107, and creatinine 1.74. Glucose is 153, and calcium is 9.5. Chest x-ray from October 06, shows improving CHF. Objective - Vital Signs Vital signs: Vital Signs Temp 97.5 F L 10/07/23 11:41 Pulse 64 10/07/23 12:16 Resp 18 10/07/23 11:41 BP 115/66 10/07/23 11:41 Pulse Ox 99 10/07/23 11:41 FiO2 40 10/07/23 03:30 Intake & Output 10/06/23 10/07/23 10/07/23 18:59 06:59 18:59 Intake Total 720 250 480 Output Total 700 2150 250 Balance 20 -1900 230 Weight 102.9 kg Intake: IV 10 0.9 10 Oral 720 240 480 Output: Urine 700 2150 250 Uretheral (Lynn) 1250 Other: Voiding Method Indwelling Catheter - Exam No acute distress, oriented 3. Currently on 4 L of oxygen. No conversational dyspnea or use of accessory muscles. HEENT examination is grossly unremarkable. Mucous membranes are moist. No oral lesions. Neck supple. Full range of motion. No adenopathy thyromegaly or neck vein distention. Cardiovascular examination reveals regular rhythm rate. S1-S2 normal. No S3 or S4. No discernible murmur noted. Heart rate 64 bpm. Lungs reveal mild bibasilar crackles. No wheezes or rhonchi. Breath sounds are equal bilaterally. 4 L saturation is 99%. Abdomen is obese. Bowel sounds are normal. No masses or tenderness. Extremities are intact. No cyanosis or clubbing. Edema is noted. Skin is without rash or lesion. Neurologic examination is brief but nonfocal. - Labs CBC & Chem 7: 10/06/23 08:19 10/07/23 08:18 Labs: Abnormal Lab Results - Last 24 Hours (Table) 10/06/23 10/06/23 10/07/23 Range/Units 16:43 20:14 06:15 Chloride (98-107) mmol/L Carbon Dioxide (22-30) mmol/L BUN (9-20) mg/dL Creatinine (0.66-1.25) mg/dL Glucose (74-99) mg/dL POC Glucose (mg/dL) 192 H 219 H 182 H (70-110) mg/dL 10/07/23 10/07/23 Range/Units 08:18 11:13 Chloride 89 L (98-107) mmol/L Carbon Dioxide 36 H (22-30) mmol/L BUN 107 H* (9-20) mg/dL Creatinine 1.74 H (0.66-1.25) mg/dL Glucose 153 H (74-99) mg/dL POC Glucose (mg/dL) 140 H (70-110) mg/dL Assessment and Plan Assessment: Acute exacerbation of chronic diastolic CHF. Altered mental status secondary to above, recovered. Acute exacerbation of chronic bronchial asthma/COPD. Acute on chronic hypoxemic and hypercapnic respiratory failure, currently on 4 L nasal cannula alternating with BiPAP 12 over 6 and 40% FiO2. Multiple admissions due to the above. Paroxysmal atrial fibrillation. Chronic kidney disease stage III. Anemia of chronic disease. Obstructive sleep apnea syndrome, maintained on CPAP. Chronic venous stasis and right lower extremity wounds. Benign essential hypertension. History of hyperlipidemia. Morbid obesity. Poor overall functional performance based on the above-mentioned multiple comorbidities. jail resident. Plan: Plan dated 10/07/2023. The patient appears to be doing better. The patient is currently on 4 L nasal cannula. We will change his Solu-Medrol to prednisone 20 mg a day. In addition, we will change his budesonide and formoterol updrafts, to Symbicort, 160/4.5, 2 puffs twice a day. Labs, x-rays, medications are reviewed. The patient's overall prognosis remains very guarded. The patient has multiple recent admissions, for a similar condition. We will continue to follow and make recommendations along the way. Time with Patient: Less than 30
--- NOTE | 2023-10-07 16:04 | P.PN ---
Subjective Progress Note Date: 10/06/23 HISTORY OF PRESENT ILLNESS: This is a 73-year-old male with a previous medical history significant for hypertension and hypertensive cardiovascular disease, hyperlipidemia, obesity with obstructive sleep apnea and obesity hypoventilation syndrome, chronic diastolic heart failure, asthma, hypothyroidism, anxiety and depressive disorder, peripheral neuropathy. Patient has had multiple hospitalizations for acute on chronic diastolic heart failure and acute exacerbation of COPD. Patient has had multiple hospitalizations for acute on chronic diastolic heart failure, pulmonary edema, acute exacerbation of COPD, acute on chronic respiratory failure, acute kidney injury, thrombocytopenia, anemia with concern for MDS seen by oncology thought to be due to acute reactivity. Patient is now a long-term resident at [facility]. Patient came into the hospital on 10/04 for hypoxia and dyspnea mental status changes. Patient was refusing to use his CPAP machine. Patient was admitted to the cardiac stepdown unit has been seen in consultation by pulmonary medicine and neurology. Patient has been maintained on BiPAP during the night. He is mental status is back to baseline. Patient was also started on Lasix drip by pulmonary medicine and transitioned to oral. Consult has been added today for nephrology for kidney failure. Lab work reveals hemoglobin of 8.5, BUN 101 and creatinine 2. Capillary blood glucose running between 193 and 219. Patient feels that his breathing is a little bit better today. Blood pressure 99/56, heart rate 78, pulse ox 94% on 4 L nasal cannula. REVIEW OF SYSTEMS: Constitutional: No documented fever, no chills, no night sweats. No weight change. No weakness, fatigue or lethargy. No daytime sleepiness. HEENT: No headache. No blurred vision or double vision, no loss of vision. No loss of Hearing, no ringing in the ears, no dizziness. No nasal drainage or congestion. No epistaxis. No sore throat. Lungs: positive for shortness of breath-improving, occasional cough, minimal sputum production. No wheezing. Reports dyspnea with activity. Cardiovascular: positive for chest pain, positive chronic lower extremity edema. No palpitations. positive for paroxysmal nocturnal dyspnea. positive for orthopnea. No lightheadedness or dizziness. No syncopal episodes. Abdominal: Reports abdominal pain. No nausea, vomiting. No diarrhea. No const ipation. No bloody or tarry stools reports loss of appetite. Genitourinary: No dysuria, increased frequency, urgency, Lynn catheter in place Musculoskeletal: No myalgias. positive for muscle weakness, positive for gait dysfunction, positive for frequent falls. positive for back pain. No neck pain, bilateral hip pain Integumentary: No wounds, no lesions. No rash or pruritus. No unusual bru ising. No change in hair or nails. Neurologic: No aphasia. No facial droop. + change in mentation-back to baseline. No head injury. No headache. No paralysis. No paresthesia. Psychiatric: No depression. No anxiety. No mood swings. Endocrine: No abnormal blood sugars. No weight change. PHYSICAL EXAMINATION: General: 73-year-old male sitting in recliner in no respiratory distress. HEENT: Head is atraumatic, normocephalic, pupils were equal round reactive to light and recommendation, extraocular muscle movement were intact, sclera nonicteric, conjunctivae were pale, mucous membranes of the mouth are somewhat dry. Neck: Supple, no JVP, normal carotid upstroke bilaterally, no lymphadenopathy. Chest: Decreased breath sounds at the bases, few rhonchi, mild expiratory wheezes, no chest wall tenderness, mild intercostal retractions. Heart: First heart sound is normal, second heart sound is normal, there is systolic ejection murmur 2/6 located in the left sternal border. Abdomen: Soft, nontender, nondistended, positive bowel sounds, obese. Extremities: There is +1 edema no calf tenderness DP +2 bilaterally, there is bilateral scabbed lesions in both shins free Neurologic examination: Patient is awake alert and oriented X 3, cranial nerves II-12 appear grossly intact, muscle power were 4 out of 5 in upper extremities and 3/5 in bilateral lower extremities ASSESSMENT AND PLAN: 1. Acute hypoxemic respiratory failure due to acute on chronic diastolic heart failure and acute exacerbation of COPD wit RAMYA and OHS and not wearing CPAP. Continue oral Lasix, Solu-Medrol has been transitioned to oral prednisone, continue Symbicort twice daily, monitor input and output and daily weight, continue DuoNeb treatments 4 times daily and as needed, Singulair 10 mg at be dtimo. Consult with pulmonary medicine appreciated. 2. Acute metabolic encephalopathy secondary to noncompliance with CPAP. Patient continue BiPAP at nighttime and when sleeping. Troponin consult appreciated 3. Paroxysmal atrial fibrillation/ Flutter. Continue patient on metoprolol 37.5 mg orally twice every day, on Xarelto 15 mg orally once every day 4. Hypertension and hypertensive cardiovascular disease. Continue patient on metoprolol 37.5 mg orally twice every day, monitor the patient blood pressure very closely. 5. Hyperlipidemia. Continue patient on atorvastatin 20 mg orally once every day, monitor lipid panel, keep LDL 55-70. 6. Enlarged prostate. Continue patient on tamsulosin 0.4 mg orally once every day. Patient has Lynn catheter. 7. Anxiety disorder. Continue patient on sertraline 100 mg orally once every day. 8. Neuropathy. Continue patient on gabapentin 300 mg at bedtime. 9. DVT prophylaxis. Continue Xarelto 15 mg po daily 10. GI prophylaxis. Continue patient on Protonix 40 mg orally once every day. 11. tax compliance manager consult for discharge planning: Return to [facility] Impression and plan of care have been directed as dictated by the signing physician. Concepción Perkins nurse practitioner acting as scribe for signing physician. Objective - Vital Signs Vital signs: Vital Signs Temp 97.5 F L 10/06/23 08:00 Pulse 84 10/06/23 13:02 Resp 18 10/06/23 08:00 BP 99/56 10/06/23 08:00 Pulse Ox 94 L 10/06/23 08:58 FiO2 40 10/06/23 03:31 Intake & Output 10/05/23 10/06/23 10/06/23 18:59 06:59 18:59 Intake Total 876 734.500 480 Output Total 1100 2200 Balance -224 -1465.500 480 Intake: Intake, IV Titration 100 134.500 Amount Furosemide 100 mg In 100 134.500 Sodium Chloride 0.9% 90 ml @ 10 MG/HR 10 mls/hr IV .Q10H [facility] Rx#: [id number] Oral 776 600 480 Output: Urine 1100 2200 Other: Voiding Method Indwelling Catheter Indwelling Catheter - Labs CBC & Chem 7: 10/06/23 08:19 10/07/23 08:18 Labs: Abnormal Lab Results - Last 24 Hours (Table) 10/05/23 10/06/23 10/06/23 Range/Units 20:15 06:28 08:19 RBC 3.19 L (4.30-5.90) m/uL Hgb 8.5 L (13.0-17.5) gm/dL Hct 27.8 L (39.0-53.0) % MCHC 30.5 L (31.0-37.0) g/dL RDW 17.3 H (11.5-15.5) % Chloride (98-107) mmol/L Carbon Dioxide (22-30) mmol/L BUN (9-20) mg/dL Creatinine (0.66-1.25) mg/dL Glucose (74-99) mg/dL POC Glucose (mg/dL) 193 H 175 H (70-110) mg/dL 10/06/23 10/06/23 Range/Units 08:19 12:06 RBC (4.30-5.90) m/uL Hgb (13.0-17.5) gm/dL Hct (39.0-53.0) % MCHC (31.0-37.0) g/dL RDW (11.5-15.5) % Chloride 90 L (98-107) mmol/L Carbon Dioxide 35 H (22-30) mmol/L BUN 101 H* (9-20) mg/dL Creatinine 2.00 H (0.66-1.25) mg/dL Glucose 158 H (74-99) mg/dL POC Glucose (mg/dL) 191 H (70-110) mg/dL
--- NOTE | 2023-10-07 16:09 | P.PN ---
Subjective Progress Note Date: 10/07/23 HISTORY OF PRESENT ILLNESS: This is a 73-year-old male with a previous medical history significant for hypertension and hypertensive cardiovascular disease, hyperlipidemia, obesity with obstructive sleep apnea and obesity hypoventilation syndrome, chronic diastolic heart failure, asthma, hypothyroidism, anxiety and depressive disorder, peripheral neuropathy. Patient has had multiple hospitalizations for acute on chronic diastolic heart failure and acute exacerbation of COPD. Patient has had multiple hospitalizations for acute on chronic diastolic heart failure, pulmonary edema, acute exacerbation of COPD, acute on chronic respiratory failure, acute kidney injury, thrombocytopenia, anemia with concern for MDS seen by oncology thought to be due to acute reactivity. Patient is now a long-term resident at [facility]. Patient came into the hospital on 10/04 for hypoxia and dyspnea mental status changes. Patient was refusing to use his CPAP machine. Patient was admitted to the cardiac stepdown unit has been seen in consultation by pulmonary medicine and neurology. Patient has been maintained on BiPAP during the night. He is mental status is back to baseline. Patient was also started on Lasix drip by pulmonary medicine and transitioned to oral. Consult has been added today for nephrology for kidney failure. Lab work reveals hemoglobin of 8.5, BUN 101 and creatinine 2. Capillary blood glucose running between 193 and 219. Patient feels that his breathing is a little bit better today. Blood pressure 99/56, heart rate 78, pulse ox 94% on 4 L nasal cannula. 10/07: Patient is seen today in follow-up. He has been compliant with BiPAP at nighttime. Patient is on a fluid restriction of 1500 ML's. He states he is a little bit short of breath but better from yesterday. He continues to have a cough with sputum production. Consult in place for nephrology to see him today. Repeat BUN 107 creatinine 1.74. Blood pressure 115/66, heart rate in the 60s and 70s, he has been afebrile, pulse ox 99% on 4 L. REVIEW OF SYSTEMS: Constitutional: No documented fever, no chills, no night sweats. No weight change. No weakness, fatigue or lethargy. No daytime sleepiness. HEENT: No headache. No blurred vision or double vision, no loss of vision. No loss of Hearing, no ringing in the ears, no dizziness. No nasal drainage or congestion. No epistaxis. No sore throat. Lungs: positive for shortness of breath-improving, occasional cough, minimal sputum production. No wheezing. Reports dyspnea with activity. Cardiovascular: positive for chest pain, positive chronic lower extremity edema. No palpitations. positive for paroxysmal nocturnal dyspnea. positive for orthopnea. No lightheadedness or dizziness. No syncopal episodes. Abdominal: Reports abdominal pain. No nausea, vomiting. No diarrhea. No constipation. No bloody or tarry stools reports loss of appetite. Genitourinary: No dysuria, increased frequency, urgency, Lynn catheter in place Musculoskeletal: No myalgias. positive for muscle weakness, positive for gait dysfunction, positive for frequent falls. positive for back pain. No neck pain, bilateral hip pain Integumentary: No wounds, no lesions. No rash or pruritus. No unusual bruising. No change in hair or nails. Neurologic: No aphasia. No facial droop. + change in mentation-back to baseline. No head injury. No headache. No paralysis. No paresthesia. Psychiatric: No depression. No anxiety. No mood swings. Endocrine: No abnormal blood sugars. No weight change. PHYSICAL EXAMINATION: General: 73-year-old male sitting in recliner in no respiratory distress. HEENT: Head is atraumatic, normocephalic, pupils were equal round reactive to light and recommendation, extraocular muscle movement were intact, sclera nonicteric, conjunctivae were pale, mucous membranes of the mouth are somewhat dry. Neck: Supple, no JVP, normal carotid upstroke bilaterally, no lymphadenopathy. Chest: Decreased breath sounds at the bases, few rhonchi, mild expiratory wheezes, no chest wall tenderness, mild intercostal retractions. Heart: First heart sound is normal, second heart sound is normal, there is systolic ejection murmur 2/6 located in the left sternal border. Abdomen: Soft, nontender, nondistended, positive bowel sounds, obese. Extremities: There is +1 edema no calf tenderness DP +2 bilaterally, there is bi lateral scabbed lesions in both shins free Neurologic examination: Patient is awake alert and oriented X 3, cranial nerves II-12 appear grossly intact, muscle power were 4 out of 5 in upper extremities and 3/5 in bilateral lower extremities ASSESSMENT AND PLAN: 1. Acute hypoxemic respiratory failure due to acute on chronic diastolic heart failure and acute exacerbation of COPD wit RAMYA and OHS and not wearing CPAP. Continue oral Lasix, Solu-Medrol has been transitioned to oral prednisone, con tinue Symbicort twice daily, monitor input and output and daily weight, continue DuoNeb treatments 4 times daily and as needed, Singulair 10 mg at bedtime. Consult with pulmonary medicine appreciated. 2. Acute metabolic encephalopathy secondary to noncompliance with CPAP. Patient continue BiPAP at nighttime and when sleeping. Troponin consult appreciated 3. Acute kidney injury. Consult with nephrology. 4. Paroxysmal atrial fibrillation/ Flutter. Continue patient on metoprolol 37.5 mg orally twice every day, on Xarelto 15 mg orally once every day 5. Hypertension and hypertensive cardiovascular disease. Continue patient on metoprolol 37.5 mg orally twice every day, monitor the patient blood pressure very closely. 6. Hyperlipidemia. Continue patient on atorvastatin 20 mg orally once every day, monitor lipid panel, keep LDL 55-70. 7. Enlarged prostate. Continue patient on tamsulosin 0.4 mg orally once every day. Patient has Lynn catheter. 8. Anxiety disorder. Continue patient on sertraline 100 mg orally once every day. 9. Neuropathy. Continue patient on gabapentin 300 mg at bedtime. 10. DVT prophylaxis. Continue Xarelto 15 mg po daily 11. GI prophylaxis. Continue patient on Protonix 40 mg orally once every day. 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 Concepción Perkins nurse practitioner acting as scribe for signing physician. Objective - Vital Signs Vital signs: Vital Signs Temp 97.6 F 10/07/23 08:00 Pulse 62 10/07/23 08:00 Resp 16 10/07/23 08:00 BP 106/62 10/07/23 08:00 Pulse Ox 97 10/07/23 08:00 FiO2 40 10/07/23 03:30 Intake & Output 10/06/23 10/07/23 10/07/23 18:59 06:59 18:59 Intake Total 720 250 Output Total 700 2150 Balance 20 -1900 Weight 102.9 kg Intake: IV 10 0.9 10 Oral 720 240 Output: Urine 700 2150 Uretheral (Lynn) 1250 Other: Voiding Method Indwelling Catheter - Labs CBC & Chem 7: 10/06/23 08:19 10/07/23 08:18 Labs: Abnormal Lab Results - Last 24 Hours (Table) 10/06/23 10/06/23 10/06/23 Range/Units 08:19 08:19 12:06 RBC 3.19 L (4.30-5.90) m/uL Hgb 8.5 L (13.0-17.5) gm/dL Hct 27.8 L (39.0-53.0) % MCHC 30.5 L (31.0-37.0) g/dL RDW 17.3 H (11.5-15.5) % Chloride 90 L (98-107) mmol/L Carbon Dioxide 35 H (22-30) mmol/L BUN 101 H* (9-20) mg/dL Creatinine 2.00 H (0.66-1.25) mg/dL Glucose 158 H (74-99) mg/dL POC Glucose (mg/dL) 191 H (70-110) mg/dL 10/06/23 10/06/23 10/07/23 Range/Units 16:43 20:14 06:15 RBC (4.30-5.90) m/uL Hgb (13.0-17.5) gm/dL Hct (39.0-53.0) % MCHC (31.0-37.0) g/dL RDW (11.5-15.5) % Chloride (98-107) mmol/L Carbon Dioxide (22-30) mmol/L BUN (9-20) mg/dL Creatinine (0.66-1.25) mg/dL Glucose (74-99) mg/dL POC Glucose (mg/dL) 192 H 219 H 182 H (70-110) mg/dL
[2023-10-07 16:33] LABS: Glucose,Whole Blood 218 mg/dL (70-110)
[2023-10-07] MEDS: RIVAROXABAN 15 MG TAB PO SCH (17:06)
[2023-10-07] MEDS: MONTELUKAST 10 MG TAB PO SCH (20:19)
[2023-10-07] MEDS: ATORVASTATIN 20 MG TAB PO SCH (20:19)
[2023-10-07] MEDS: SERTRALINE 100 MG TAB PO SCH (20:19)
[2023-10-07] MEDS: TAMSULOSIN 0.4 MG CAP.ER.24H PO SCH (20:19)
[2023-10-07] MEDS: GABAPENTIN 300 MG CAP PO SCH (20:19)
[2023-10-07] MEDS: BENZONATATE 100 MG CAP PO PRN (20:24)
[2023-10-07] MEDS: MELATONIN 5 MG TABLET PO PRN (20:25)
[2023-10-07] MEDS: SYMBICORT 160-4.5 MCG INHALER INHALATION SCH (21:35)
[2023-10-08] MEDS: ACETAMINOPHEN TAB 500 MG TAB PO PRN ×2 (05:31→17:49)
[2023-10-08] MEDS: SODIUM CHLORIDE 0.9% 1,000 ML IV SCH (05:45)
[2023-10-08 06:05] LABS: Glucose,Whole Blood 117 mg/dL (70-110)
[2023-10-08] MEDS: PANTOPRAZOLE 40 MG TABLET PO SCH (06:30)
[2023-10-08] MEDS: SYMBICORT 160-4.5 MCG INHALER INHALATION SCH ×2 (08:06→21:26)
[2023-10-08] MEDS: IPRATROPIUM-ALBUTEROL 3 ML NEB INHALATION SCH ×4 (08:06→21:26)
[2023-10-08] MEDS: CHOLECALCIFEROL 25 MCG (1000 IU) TABLET PO SCH (09:20)
[2023-10-08] MEDS: METOPROLOL TARTRATE 12.5 MG TAB PO SCH ×2 (09:20→20:48)
[2023-10-08] MEDS: predniSONE 20 MG TAB PO SCH (09:20)
[2023-10-08] MEDS: FUROSEMIDE 80 MG TAB PO SCH ×2 (09:20→17:45)
[2023-10-08] MEDS: CYANOCOBALAMIN 500 MCG TAB PO SCH (09:20)
[2023-10-08] MEDS: AMMONIUM LACTATE 12% LOTION 225 GM BTL TOPICAL SCH ×2 (09:21→22:30)
[2023-10-08 11:12] LABS: Glucose,Whole Blood 129 mg/dL (70-110)
--- NOTE | 2023-10-08 12:00 | P.PN ---
Subjective Patient is seen for follow-up for acute kidney injury mostly cardiorenal. He was admitted with volume overload and has been diuresed Fabiotalia harris patient was initially on Lasix drip which is now discontinued and he is maintained on oral Lasix. This morning patient states that he is more short of breath. Weight is down by about 2.5 kg if this is accurate. Labs are pending from today. Creatinine was lower at 1.7 yesterday from 2.0 the day before. 24 hour urine output at 2.8 L. Objective - Vital Signs Vital signs: Vital Signs Temp 97.7 F 10/08/23 11:53 Pulse 77 10/08/23 11:53 Resp 18 10/08/23 11:53 BP 122/82 10/08/23 11:53 Pulse Ox 95 10/08/23 11:53 FiO2 40 10/08/23 04:10 Intake & Output 10/07/23 10/08/23 10/08/23 18:59 06:59 18:59 Intake Total 720 250 100 Output Total 250 2400 Balance 470 -2150 100 Weight 100.4 kg Intake: IV 10 0.9 10 Oral 720 240 100 Output: Urine 250 2400 Other: Voiding Method Indwelling Catheter Indwelling Catheter - Exam Patient is awake, comfortable, in no acute distress Alert oriented 3 Examination of the heart S1 and S2 Examination of the lungs bilateral breath sounds are heard Abdomen is soft obese nontender Examination lower extremity shows significant edema, 2-3+ bilaterally SCALLOPER exam grossly intact - Labs CBC & Chem 7: 10/06/23 08:19 10/07/23 08:18 Labs: Abnormal Lab Results - Last 24 Hours (Table) 10/07/23 10/08/23 10/08/23 Range/Units 16:31 06:04 11:10 POC Glucose (mg/dL) 218 H 117 H 129 H (70-110) mg/dL Assessment and Plan Assessment: 1. Acute kidney injury, cardiorenal, currently improved post diuresis. No evidence of obstruction on previous ultrasound on 08/31/2023. BUN disproportionately elevated secondary to steroids 2. Acute diastolic heart failure. EF 50-55% on echocardiogram in 08/25/2023 3. Volume overload status post diuresis currently switched to oral Lasix from Lasix drip. 4. Acute hypoxic respiratory failure with hypercapnia 5. Paroxysmal A. fib 6. Obesity Plan: Continue with current dose of oral Lasix. So far patient appears to be losing weight and was -1.6 L over 24 hours. Repeat labs Salt and fluid restriction post discharge Follow-up as outpatient closely for titration of diuretics.
[2023-10-08 12:07] LABS: Anisocytosis Slight; HCT 29.7 % (39.0-53.0); HGB 9.2 gm/dL (13.0-17.5); Hypochromasia Marked; MCH 27.1 pg (25.0-35.0); MCV 87.4 fL (80.0-100.0); Mean Platelet Volume 7.8; Platelet Count 299 k/uL (150-450); RDW 17.1 % (11.5-15.5); WBC 9.3 k/uL (3.8-10.6)
[2023-10-08 12:24] LABS: African American GFR (CKD) 31 (>60 ml/min/1.73 sqM); Calcium 9.4 mg/dL (8.4-10.2); Chloride 89 mmol/L (98-107); Glucose 115 mg/dL (74-99); Non-African American GFR(CKD) 26 (>60 ml/min/1.73 sqM); Potassium 3.3 mmol/L (3.5-5.1); Sodium 142 mmol/L (137-145)
[2023-10-08 12:31] LABS: Anion Gap 15 mmol/L
[2023-10-08 12:40] LABS: Blood Urea Nitrogen 117 mg/dL (9-20); Carbon Dioxide 38 mmol/L (22-30)
--- NOTE | 2023-10-08 13:05 | P.PN ---
Subjective Progress Note Date: 10/08/23 Principal diagnosis: Shortness of breath. This is 73-year-old male patient with a known history of congestive heart failure, asthma/COPD, obstructive sleep apnea with CPAP, chronic oxygen dependence, hyperlipidemia, hypertension, paroxysmal atrial fibrillation, chronic leg wounds, frequent readmissions for congestive heart failure and hypoxic respiratory failure. Patient was discharged 15 days ago for similar symptoms. He resides at a local extended care facility. The patient had been pulling off his CPAP device there and an unknown time of how long he had been without it and was found altered and hypoxemic. He was brought back to the emergency room early this morning for the same. Chest x-ray reveals cardiomegaly and severe pulmonary edema with mild pleural effusions. Computed tomography scan of the brain revealed no acute intracranial abnormalities. Moderate atrophy and chronic microvascular ischemic changes. White count 12.9. Hemoglobin 9.2. Platelets 158. Sodium 137. Potassium 3.9. Bicarb 28. BUN 88. Creatinine 2.14. AST 27. ALT 23. Troponin negative times one. ProBNP 3690. Arterial blood gases on 40% FiO2 revealed a PaO2 of 95, P CO2 of 52 and at pH of 7.42. He was given a breathing treatment and Decadron. He is seen today in the emergency department. He remains arousable but unable to answer any questions. He is on BiPAP 12/6 at 40% FiO2 with the current 2 saturation 96%. He is afebrile. Hemodynamically stable. The patient is seen today 10/05/2023 in follow-up on the selective care unit. He is better today compared to yesterday. Currently on the off the BiPAP which she has been utilizing 12/6 at 40% FiO2. Currently on 4 L nasal cannula. He has less lower extremity edema. He is responding well to the Lasix drip which is at 10 mg per hour. Currently in a -2.8 L balance. Lynn catheter remains in place. Continue on DuoNeb inhalations, Azmacort and Perforomist inhalations, Solu-Medrol. He is anticoagulated with Xarelto. The patient is seen today 10/06/2023 in follow-up on the selective care unit. He is sitting up in a chair. Awake and alert in no acute distress. Currently on 4 L nasal cannula with O2 saturations in the 90s. He does utilize BiPAP 12/6 and 40% FiO2 at nighttime and during the day while napping. He is continued on the Lasix drip at 10 mg per hour. Currently in a -1.7 L balance. Lynn catheter remains in place. White count 8.9. Hemoglobin 8.5. Platelets 208. Sodium 143. Potassium 3.5. Bicarb 35. BUN 101. Creatinine 2.00. Glucose 158. He is continued on DuoNeb inhalations, Pulmicort and Perforomist inhalations, Solu-Medrol and Singulair. Anticoagulated with Xarelto. Remains on Tessalon Perles. Progress note dated 10/07/2023. 73-year-old male seen today in room 382. Currently, the patient is on 4 L of oxygen, by nasal cannula. The patient also uses BiPAP, with settings of 12/6, and 40%. The patient is not receiving any IV fluids. He is improving. Today, we converted to Solu-Medrol to prednisone 20 mg a day, and convert his budesonide and formoterol, to Symbicort, 160/4.5, 2 puffs twice a day. Laboratory data today includes a sodium 142, potassium 3.7, chlorides 89, CO2 36, anion gap 17, BUN 107, and creatinine 1.74. Glucose is 153, and calcium is 9.5. Chest x-ray from October 06, shows improving CHF. Progress note dated 10/08/2023. 73-year-old male seen in room 382. Currently, the patient's resting comfortably on 4 L of oxygen. His saturations are adequate. When not on oxygen therapy, the patient does use BiPAP, with settings of 12/6, and 40%. The patient is not receiving any IV fluids. His breathing has been stable for the last couple of days. His white count is 9.3, hemoglobin 9.2, hematocrit 29.7, and platelet count was normal at 299,000. Sodium 142, potassium 3.3, chlorides 89, CO2 38, BUN 117, and creatinine 2.35. Glucose 115. Calcium is 9.4. Objective - Vital Signs Vital signs: Vital Signs Temp 97.7 F 10/08/23 11:53 Pulse 70 10/08/23 12:07 Resp 18 10/08/23 11:53 BP 122/82 10/08/23 11:53 Pulse Ox 95 10/08/23 11:53 FiO2 40 10/08/23 04:10 Intake & Output 10/07/23 10/08/23 10/08/23 18:59 06:59 18:59 Intake Total 720 250 100 Output Total 250 2400 Balance 470 -2150 100 Weight 100.4 kg Intake: IV 10 0.9 10 Oral 720 240 100 Output: Urine 250 2400 Other: Voiding Method Indwelling Catheter Indwelling Catheter - Exam No acute distress, oriented 3. Currently on 4 L of oxygen. No conversational dyspnea or use of accessory muscles. HEENT examination is grossly unremarkable. Mucous membranes are moist. No oral lesions. Neck supple. Full range of motion. No adenopathy thyromegaly or neck vein distention. Cardiovascular examination reveals regular rhythm rate. S1-S2 normal. No S3 or S4. No discernible murmur noted. Heart rate 70 bpm. Lungs reveal mild bibasilar crackles. No wheezes or rhonchi. Breath sounds are equal bilaterally. 4 L saturation is 95 %. Abdomen is obese. Bowel sounds are normal. No masses or tenderness. Extremities are intact. No cyanosis or clubbing. Edema is noted. Skin is without rash or lesion. Neurologic examination is brief but nonfocal. - Labs CBC & Chem 7: 10/08/23 10:52 10/08/23 10:52 Labs: Abnormal Lab Results - Last 24 Hours (Table) 10/07/23 10/08/23 10/08/23 Range/Units 16:31 06:04 10:52 RBC (4.30-5.90) m/uL Hgb (13.0-17.5) gm/dL Hct (39.0-53.0) % RDW (11.5-15.5) % Potassium 3.3 L (3.5-5.1) mmol/L Chloride 89 L (98-107) mmol/L Carbon Dioxide 38 H (22-30) mmol/L BUN 117 H* (9-20) mg/dL Creatinine 2.35 H (0.66-1.25) mg/dL Glucose 115 H (74-99) mg/dL POC Glucose (mg/dL) 218 H 117 H (70-110) mg/dL 10/08/23 10/08/23 Range/Units 10:52 11:10 RBC 3.40 L (4.30-5.90) m/uL Hgb 9.2 L (13.0-17.5) gm/dL Hct 29.7 L (39.0-53.0) % RDW 17.1 H (11.5-15.5) % Potassium (3.5-5.1) mmol/L Chloride (98-107) mmol/L Carbon Dioxide (22-30) mmol/L BUN (9-20) mg/dL Creatinine (0.66-1.25) mg/dL Glucose (74-99) mg/dL POC Glucose (mg/dL) 129 H (70-110) mg/dL Assessment and Plan Assessment: Acute exacerbation of chronic diastolic CHF. Altered mental status secondary to above, recovered. Acute exacerbation of chronic bronchial asthma/COPD. Acute on chronic hypoxemic and hypercapnic respiratory failure, currently on 4 L nasal cannula alternating with BiPAP 12 over 6 and 40% FiO2. Multiple admissions due to the above. Paroxysmal atrial fibrillation. Chronic kidney disease stage III. Anemia of chronic disease. Obstructive sleep apnea syndrome, maintained on CPAP. Chronic venous stasis and right lower extremity wounds. Benign essential hypertension. History of hyperlipidemia. Morbid obesity. Poor overall functional performance based on the above-mentioned multiple comorbidities. 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 Plan: Plan dated 10/07/2023. The patient appears to be doing better. The patient is currently on 4 L nasal cannula. We will change his Solu-Medrol to prednisone 20 mg a day. In addition, we will change his budesonide and formoterol updrafts, to Symbicort, 160/4.5, 2 puffs twice a day. Labs, x-rays, medications are reviewed. The patient's overall prognosis remains very guarded. The patient has multiple rec ent admissions, for a similar condition. We will continue to follow and make recommendations along the way. Plan dated 10/08/2023. The patient appears to be relatively stable. The patient continues on oxygen, at 4 L by nasal cannula, during the daytime, and uses BiPAP, intermittently at nighttime, with settings of 12/6, and 40%. Labs, x-rays, and medications are reviewed. The patient's on appropriate medications, and, hopefully we'll be able to be [facility] to the [facility] in next few days. Additional recommendations and suggestions are forthcoming. Overall prognosis remains very guarded. The patient has been in and out of the hospital recently, quite a bit. Time with Patient: Less than 30
--- NOTE | 2023-10-08 15:12 | P.PN ---
Subjective Progress Note Date: 10/08/23 HISTORY OF PRESENT ILLNESS: This is a 73-year-old male with a previous medical history significant for hypertension and hypertensive cardiovascular disease, hyperlipidemia, obesity with obstructive sleep apnea and obesity hypoventilation syndrome, chronic diastolic heart failure, asthma, hypothyroidism, anxiety and depressive disorder, peripheral neuropathy. Patient has had multiple hospitalizations for acute on chronic diastolic heart failure and acute exacerbation of COPD. Patient has had multiple hospitalizations for acute on chronic diastolic heart failure, pulmonary edema, acute exacerbation of COPD, acute on chronic respiratory failure, acute kidney injury, thrombocytopenia, anemia with concern for MDS seen by oncology thought to be due to acute reactivity. Patient is now a long-term resident at [facility]. Patient came into the hospital on 10/04 for hypoxia and dyspnea mental status changes. Patient was refusing to use his CPAP machine. Patient was admitted to the cardiac stepdown unit has been seen in consultation by pulmonary medicine and neurology. Patient has been maintained on BiPAP during the night. He is mental status is back to baseline. Patient was also started on Lasix drip by pulmonary medicine and transitioned to oral. Consult has been added today for nephrology for kidney failure. Lab work reveals hemoglobin of 8.5, BUN 101 and creatinine 2. Capillary blood glucose running between 193 and 219. Patient feels that his breathing is a little bit better today. Blood pressure 99/56, heart rate 78, pulse ox 94% on 4 L nasal cannula. 10/07: Patient is seen today in follow-up. He has been compliant with BiPAP at nighttime. Patient is on a fluid restriction of 1500 ML's. He states he is a little bit short of breath but better from yesterday. He continues to have a cough with sputum production. Consult in place for nephrology to see him today. Repeat BUN 107 creatinine 1.74. Blood pressure 115/66, heart rate in the 60s and 70s, he has been afebrile, pulse ox 99% on 4 L. 10/08: Patient has been afebrile, heart rate in the 70s, blood pressure 122/82, pulse ox 95% on 4 L nasal cannula. Repeat blood work reveals hemoglobin 9.2, potassium 3.3 and has been replaced. BUN 117 creatinine 2.35. Patient is followed by nephrology with recommendations to continue current dose of Lasix 80 mg twice daily. Patient to continue salt and fluid restriction after discharge. Patient is also followed by pulmonary medicine. Patient has been using BiPAP at nighttime. Patient is found resting in bed. He continues to have a congested cough. He went into episode of A. fib with RVR and converted during the night. He has been maintained on Xarelto which will be transitioned to eliquis due to renal failure. Patient appears fatigued today. REVIEW OF SYSTEMS: Constitutional: No documented fever, no chills, no night sweats. No weight rees ge. No weakness, fatigue or lethargy. No daytime sleepiness. HEENT: No headache. No blurred vision or double vision, no loss of vision. No loss of Hearing, no ringing in the ears, no dizziness. No nasal drainage or congestion. No epistaxis. No sore throat. Lungs: positive for shortness of breath-improving, occasional cough, minimal sputum production. No wheezing. Reports dyspnea with activity. Cardiovascular: positive for chest pain, positive chronic lower extremity edema. No palpitations. positive for paroxysmal nocturnal dyspnea. positive for orthopnea. No lightheadedness or dizziness. No syncopal episodes. Abdominal: Reports abdominal pain. No nausea, vomiting. No diarrhea. No constipation. No bloody or tarry stools reports loss of appetite. Genitourinary: No dysuria, increased frequency, urgency, Lynn catheter in place Musculoskeletal: No myalgias. positive for muscle weakness, positive for gait dysfunction, positive for frequent falls. positive for back pain. No neck pain, bilateral hip pain Integumentary: No wounds, no lesions. No rash or pruritus. No unusual bruising. No change in hair or nails. Neurologic: No aphasia. No facial droop. + change in mentation-back to baseline. No head injury. No headache. No paralysis. No paresthesia. Psychiatric: No depression. No anxiety. No mood swings. Endocrine: No abnormal blood sugars. No weight change. PHYSICAL EXAMINATION: General: 73-year-old male sitting in recliner in no respiratory distress. HEENT: Head is atraumatic, normocephalic, pupils were equal round reactive to light and recommendation, extraocular muscle movement were intact, sclera nonicteric, conjunctivae were pale, mucous membranes of the mouth are somewhat dry. Neck: Supple, no JVP, normal carotid upstroke bilaterally, no lymphadenopathy. Chest: Decreased breath sounds at the bases, few rhonchi, mild expiratory wheezes, no chest wall tenderness, mild intercostal retractions. Heart: First heart sound is normal, second heart sound is normal, there is systolic ejection murmur 2/6 located in the left sternal border. Abdomen: Soft, nontender, nondistended, positive bowel sounds, obese. Extremities: There is +1 edema no calf tenderness DP +2 bilaterally, there is bilateral scabbed lesions in both shins free Neurologic examination: Patient is awake alert and oriented X 3, cranial nerves II-12 appear grossly intact, muscle power were 4 out of 5 in upper extremities and 3/5 in bilateral lower extremities ASSESSMENT AND PLAN: 1. Acute hypoxemic respiratory failure due to acute on chronic diastolic heart failure and acute exacerbation of COPD wit RAMYA and OHS and not wearing CPAP. Continue oral Lasix, oral prednisone, continue Symbicort twice daily, monitor input and output and daily weight, continue DuoNeb treatments 4 times daily and as needed, Singulair 10 mg at bedtime. Consult with pulmonary medicine appreciated. 2. Acute metabolic encephalopathy secondary to noncompliance with CPAP. Patient continue BiPAP at nighttime and when sleeping. Troponin consult appreciated 3. Acute kidney injury. Consult with nephrology appreciated. Patient is on 1500 ML fluid restriction and to be on a low-salt diet. Patient to continue oral Lasix 80 mg twice daily per nephrology. 4. Paroxysmal atrial fibrillation/ Flutter. Continue patient on metoprolol 37.5 mg orally twice every day, discontinue Xarelto and start patient on eliquis 2.5 mg twice daily 5. Hypertension and hypertensive cardiovascular disease. Continue patient on metoprolol 37.5 mg orally twice every day, monitor the patient blood pressure very closely. 6. Hyperlipidemia. Continue patient on atorvastatin 20 mg orally once every day, monitor lipid panel, keep LDL 55-70. 7. Enlarged prostate. Continue patient on tamsulosin 0.4 mg orally once every day. Patient has Lynn catheter. 8. Anxiety disorder. Continue patient on sertraline 100 mg orally once every day. 9. Neuropathy. Continue patient on gabapentin 300 mg at bedtime. 10. DVT prophylaxis. Eliquis 2.5 mg twice daily 11. GI prophylaxis. Continue patient on Protonix 40 mg orally once every day. 12. supply and distribution manager consult for discharge planning: Return to [facility] Impression and plan of care have been directed as dictated by the signing physician. Concepción Perkins nurse practitioner acting as scribe for signing physician. Objective - Vital Signs Vital signs: Vital Signs Temp 97.7 F 10/08/23 11:53 Pulse 70 10/08/23 12:07 Resp 18 10/08/23 11:53 BP 122/82 10/08/23 11:53 Pulse Ox 95 10/08/23 11:53 FiO2 40 10/08/23 04:10 Intake & Output 10/07/23 10/08/23 10/08/23 18:59 06:59 18:59 Intake Total 720 250 100 Output Total 250 2400 Balance 470 -2150 100 Weight 100.4 kg Intake: IV 10 0.9 10 Oral 720 240 100 Output: Urine 250 2400 Other: Voiding Method Indwelling Catheter Indwelling Catheter - Labs CBC & Chem 7: 10/08/23 10:52 10/08/23 10:52 Labs: Abnormal Lab Results - Last 24 Hours (Table) 10/07/23 10/08/23 10/08/23 Range/Units 16:31 06:04 10:52 RBC (4.30-5.90) m/uL Hgb (13.0-17.5) gm/dL Hct (39.0-53.0) % RDW (11.5-15.5) % Potassium 3.3 L (3.5-5.1) mmol/L Chloride 89 L (98-107) mmol/L Carbon Dioxide 38 H (22-30) mmol/L BUN 117 H* (9-20) mg/dL Creatinine 2.35 H (0.66-1.25) mg/dL Glucose 115 H (74-99) mg/dL POC Glucose (mg/dL) 218 H 117 H (70-110) mg/dL 10/08/23 10/08/23 Range/Units 10:52 11:10 RBC 3.40 L (4.30-5.90) m/uL Hgb 9.2 L (13.0-17.5) gm/dL Hct 29.7 L (39.0-53.0) % RDW 17.1 H (11.5-15.5) % Potassium (3.5-5.1) mmol/L Chloride (98-107) mmol/L Carbon Dioxide (22-30) mmol/L BUN (9-20) mg/dL Creatinine (0.66-1.25) mg/dL Glucose (74-99) mg/dL POC Glucose (mg/dL) 129 H (70-110) mg/dL
[2023-10-08] MEDS ORDERED: Potassium Replacement Protocol 1 EACH MISC MISCELLANE PRN (15:45)
[2023-10-08 16:41] LABS: Glucose,Whole Blood 173 mg/dL (70-110)
[2023-10-08] MEDS: POTASSIUM CHLORIDE ER 20 MEQ TAB.ER PO SCH ×2 (17:45→19:02)
[2023-10-08 20:20] LABS: Glucose,Whole Blood 173 mg/dL (70-110)
[2023-10-08] MEDS: GABAPENTIN 300 MG CAP PO SCH (20:48)
[2023-10-08] MEDS: APIXABAN 2.5 MG TABLET PO SCH (20:49)
[2023-10-08] MEDS: TAMSULOSIN 0.4 MG CAP.ER.24H PO SCH (20:49)
[2023-10-08] MEDS: MONTELUKAST 10 MG TAB PO SCH (20:49)
[2023-10-08] MEDS: SERTRALINE 100 MG TAB PO SCH (20:49)
[2023-10-08] MEDS: ATORVASTATIN 20 MG TAB PO SCH (20:49)
[2023-10-09] MEDS: MELATONIN 5 MG TABLET PO PRN (00:26)
[2023-10-09] MEDS: ACETAMINOPHEN TAB 500 MG TAB PO PRN (00:27)
[2023-10-09 06:16] LABS: Glucose,Whole Blood 110 mg/dL (70-110)
[2023-10-09] MEDS: PANTOPRAZOLE 40 MG TABLET PO SCH (06:44)
[2023-10-09] MEDS: SYMBICORT 160-4.5 MCG INHALER INHALATION SCH ×2 (07:37→21:13)
[2023-10-09] MEDS: IPRATROPIUM-ALBUTEROL 3 ML NEB INHALATION SCH ×4 (07:37→21:13)
[2023-10-09] MEDS: CHOLECALCIFEROL 25 MCG (1000 IU) TABLET PO SCH (09:48)
[2023-10-09] MEDS: FUROSEMIDE 80 MG TAB PO SCH ×2 (09:48→11:51)
[2023-10-09] MEDS: METOPROLOL TARTRATE 12.5 MG TAB PO SCH ×3 (09:48→22:02)
[2023-10-09] MEDS: APIXABAN 2.5 MG TABLET PO SCH ×2 (09:48→22:03)
[2023-10-09] MEDS: CYANOCOBALAMIN 500 MCG TAB PO SCH (09:49)
[2023-10-09] MEDS: predniSONE 20 MG TAB PO SCH (09:49)
[2023-10-09 09:56] LABS: African American GFR (CKD) 23 (>60 ml/min/1.73 sqM); Calcium 9.3 mg/dL (8.4-10.2); Chloride 91 mmol/L (98-107); Glucose 91 mg/dL (74-99); Non-African American GFR(CKD) 20 (>60 ml/min/1.73 sqM); Sodium 142 mmol/L (137-145)
[2023-10-09 10:21] LABS: Anion Gap 15 mmol/L; Carbon Dioxide 36 mmol/L (22-30)
[2023-10-09 10:33] LABS: Blood Urea Nitrogen 131 mg/dL (9-20)
[2023-10-09] MEDS: SODIUM CHLORIDE 0.9% 1,000 ML IV SCH (11:02)
[2023-10-09 11:46] LABS: Glucose,Whole Blood 154 mg/dL (70-110)
[2023-10-09] MEDS: AMMONIUM LACTATE 12% LOTION 225 GM BTL TOPICAL SCH ×2 (12:02→22:03)
--- NOTE | 2023-10-09 12:26 | P.PN ---
Subjective Progress Note Date: 10/09/23 Principal diagnosis: Shortness of breath. This is 73-year-old male patient with a known history of congestive heart failure, asthma/COPD, obstructive sleep apnea with CPAP, chronic oxygen dependence, hyperlipidemia, hypertension, paroxysmal atrial fibrillation, chronic leg wounds, frequent readmissions for congestive heart failure and hypoxic respiratory failure. Patient was discharged 15 days ago for similar symptoms. He resides at a local extended care facility. The patient had been pulling off his CPAP device there and an unknown time of how long he had been without it and was found altered and hypoxemic. He was brought back to the emergency room early this morning for the same. Chest x-ray reveals cardiomegaly and severe pulmonary edema with mild pleural effusions. Computed tomography scan of the brain revealed no acute intracranial abnormalities. Moderate atrophy and chronic microvascular ischemic changes. White count 12.9. Hemoglobin 9.2. Platelets 158. Sodium 137. Potassium 3.9. Bicarb 28. BUN 88. Creatinine 2.14. AST 27. ALT 23. Troponin negative times one. ProBNP 3690. Arterial blood gases on 40% FiO2 revealed a PaO2 of 95, P CO2 of 52 and at pH of 7.42. He was given a breathing treatment and Decadron. He is seen today in the emergency department. He remains arousable but unable to answer any questions. He is on BiPAP 12/6 at 40% FiO2 with the current 2 saturation 96%. He is afebrile. Hemodynamically stable. The patient is seen today 10/05/2023 in follow-up on the selective care unit. He is better today compared to yesterday. Currently on the off the BiPAP which she has been utilizing 12/6 at 40% FiO2. Currently on 4 L nasal cannula. He has less lower extremity edema. He is responding well to the Lasix drip which is at 10 mg per hour. Currently in a -2.8 L balance. Lynn catheter remains in place. Continue on DuoNeb inhalations, Azmacort and Perforomist inhalations, Solu-Medrol. He is anticoagulated with Xarelto. The patient is seen today 10/06/2023 in follow-up on the selective care unit. He is sitting up in a chair. Awake and alert in no acute distress. Currently on 4 L nasal cannula with O2 saturations in the 90s. He does utilize BiPAP 12/6 and 40% FiO2 at nighttime and during the day while napping. He is continued on the Lasix drip at 10 mg per hour. Currently in a -1.7 L balance. Lynn catheter remains in place. White count 8.9. Hemoglobin 8.5. Platelets 208. Sodium 143. Potassium 3.5. Bicarb 35. BUN 101. Creatinine 2.00. Glucose 158. He is continued on DuoNeb inhalations, Pulmicort and Perforomist inhalations, Solu-Medrol and Singulair. Anticoagulated with Xarelto. Remains on Tessalon Perles. Progress note dated 10/07/2023. 73-year-old male seen today in room 382. Currently, the patient is on 4 L of oxygen, by nasal cannula. The patient also uses BiPAP, with settings of 12/6, and 40%. The patient is not receiving any IV fluids. He is improving. Today, we converted to Solu-Medrol to prednisone 20 mg a day, and convert his budesonide and formoterol, to Symbicort, 160/4.5, 2 puffs twice a day. Laboratory data today includes a sodium 142, potassium 3.7, chlorides 89, CO2 36, anion gap 17, BUN 107, and creatinine 1.74. Glucose is 153, and calcium is 9.5. Chest x-ray from October 06, shows improving CHF. Progress note dated 10/08/2023. 73-year-old male seen in room 382. Currently, the patient's resting comfortably on 4 L of oxygen. His saturations are adequate. When not on oxygen therapy, the patient does use BiPAP, with settings of 12/6, and 40%. The patient is not receiving any IV fluids. His breathing has been stable for the last couple of days. His white count is 9.3, hemoglobin 9.2, hematocrit 29.7, and platelet count was normal at 299,000. Sodium 142, potassium 3.3, chlorides 89, CO2 38, BUN 117, and creatinine 2.35. Glucose 115. Calcium is 9.4. Progress note dated 10/09/2023. 73-year-old male seen today in room 382. The patient remains on nasal O2 at 4 L. He does use BiPAP intermittently, at 12/6, and 40%. Recently, he has not been very compliant with his BiPAP. The patient is currently being evaluated f or transfer back to his halfway. Labs today include a sodium 142, potassium 4, chlorides 91, CO2 36, anion gap 15, BUN 131, and creatinine 2.97. Calcium is 9.3. Blood glucose is 154. Objective - Vital Signs Vital signs: Vital Signs Temp 97.8 F 10/09/23 08:00 Pulse 68 10/09/23 11:18 Resp 20 10/09/23 08:00 BP 80/50 10/09/23 09:56 Pulse Ox 93 L 10/09/23 08:00 FiO2 40 10/09/23 04:30 Intake & Output 10/08/23 10/09/23 10/09/23 18:59 06:59 18:59 Intake Total 1300 480 120 Output Total 200 350 Balance 1100 130 120 Intake: Oral 1300 480 120 Output: Urine 200 350 Other: Voiding Method Indwelling Catheter Indwelling Catheter # Voids 1 - Exam No acute distress, oriented 3. Currently on 4 L of oxygen. No conversational dyspnea or use of accessory muscles. HEENT examination is grossly unremarkable. Mucous membranes are moist. No oral lesions. Neck supple. Full range of motion. No adenopathy thyromegaly or neck vein distention. Cardiovascular examination reveals regular rhythm rate. S1-S2 normal. No S3 or S4. No discernible murmur noted. Heart rate 68 bpm. Lungs reveal mild bibasilar crackles. No wheezes or rhonchi. Breath sounds are equal bilaterally. 4 L saturation is 94 %. Abdomen is obese. Bowel sounds are normal. No masses or tenderness. Extremities are intact. No cyanosis or clubbing. Edema is noted. Skin is without rash or lesion. Neurologic examination is brief but nonfocal. - Labs CBC & Chem 7: 10/08/23 10:52 10/09/23 08:09 Labs: Abnormal Lab Results - Last 24 Hours (Table) 10/08/23 10/08/23 10/08/23 Range/Units 10:52 16:37 20:19 Potassium 3.3 L (3.5-5.1) mmol/L Chloride 89 L (98-107) mmol/L Carbon Dioxide 38 H (22-30) mmol/L BUN 117 H* (9-20) mg/dL Creatinine 2.35 H (0.66-1.25) mg/dL Glucose 115 H (74-99) mg/dL POC Glucose (mg/dL) 173 H 173 H (70-110) mg/dL 10/09/23 10/09/23 Range/Units 08:09 11:44 Potassium (3.5-5.1) mmol/L Chloride 91 L (98-107) mmol/L Carbon Dioxide 36 H (22-30) mmol/L BUN 131 H* (9-20) mg/dL Creatinine 2.97 H (0.66-1.25) mg/dL Glucose (74-99) mg/dL POC Glucose (mg/dL) 154 H (70-110) mg/dL Assessment and Plan Assessment: Acute exacerbation of chronic diastolic CHF. Altered mental status secondary to above, recovered. Acute exacerbation of chronic bronchial asthma/COPD. Acute on chronic hypoxemic and hypercapnic respiratory failure, currently on 4 L nasal cannula alternating with BiPAP 12 over 6 and 40% FiO2. Multiple admissions due to the above. Paroxysmal atrial fibrillation. Chronic kidney disease stage III. Anemia of chronic disease. Obstructive sleep apnea syndrome, maintained on CPAP. Chronic venous stasis and right lower extremity wounds. Benign essential hypertension. History of hyperlipidemia. Morbid obesity. Poor overall functional performance based on the above-mentioned multiple comorbidities. [facility] resident. Plan: Plan dated 10/07/2023. The patient appears to be doing better. The patient is currently on 4 L nasal cannula. We will change his Solu-Medrol to prednisone 20 mg a day. In addition, we will change his budesonide and formoterol updrafts, to Symbicort, 160/4.5, 2 puffs twice a day. Labs, x-rays, medications are reviewed. The patient's overall prognosis remains very guarded. The patient has multiple recent admissions, for a similar condition. We will continue to follow and make recommendations along the way. Plan dated 10/08/2023. The patient appears to be relatively stable. The patient continues on oxygen, at 4 L by nasal cannula, during the daytime, and uses BiPAP, intermittently at nighttime, with settings of 12/6, and 40%. Labs, x-rays, and medications are reviewed. The patient's on appropriate medications, and, hopefully we'll be able to be discharged back to the halfway in next few days. Additional recommendations and suggestions are forthcoming. Overall prognosis remains very guarded. The patient has been in and out of the hospital recently, quite a bit. Plan dated 10/09/2023. The patient appears to be pretty much at his baseline. He does continue on oxygen at 4 L, which is what he uses as an outpatient. Clinically, the patient has been stable the last few days. Labs, x-rays, and medications are reviewed. The patient does use of BiPAP intermittently, but has not been particularly compliant with it. Also, at times, especially at nighttime, he will pull it off. We will continue to follow and make recommendations along the way. Prognosis is guarded. Time with Patient: Less than 30
--- NOTE | 2023-10-09 13:36 | P.PN ---
Subjective Patient is seen for follow-up for acute kidney injury mostly cardiorenal. He was admitted with volume overload and has been diuresed. Patient was initially on Lasix drip which is now discontinued and he is maintained on oral Lasix. Fairly comfortable. No complaints of shortness of breath. Weight is down by more than10 kg since admission, if this is accurate. 24 hour urine output at 2.6 L Serum creatinine increased to 2.7 from 2.35 yesterday. Objective - Vital Signs Vital signs: Vital Signs Temp 96.7 F L 10/09/23 12:00 Pulse 68 10/09/23 12:00 Resp 20 10/09/23 12:00 BP 93/46 10/09/23 12:00 Pulse Ox 93 L 10/09/23 12:00 FiO2 40 10/09/23 04:30 Intake & Output 10/08/23 10/09/23 10/09/23 18:59 06:59 18:59 Intake Total 1300 480 120 Output Total 200 350 400 Balance 1100 130 -280 Intake: Oral 1300 480 120 Output: Urine 200 350 400 Other: Voiding Method Indwelling Catheter Indwelling Catheter # Voids 1 - Exam Patient is awake, comfortable, in no acute distress Alert oriented 3 Examination of the heart S1 and S2 Examination of the lungs bilateral breath sounds are heard Abdomen is soft obese nontender Examination lower extremity shows significant edema, 2+ bilaterally, decreasing DRESSMAKING TEACHER exam grossly intact - Labs CBC & Chem 7: 10/08/23 10:52 10/09/23 08:09 Labs: Abnormal Lab Results - Last 24 Hours (Table) 10/08/23 10/08/23 10/09/23 Range/Units 16:37 20:19 08:09 Chloride 91 L (98-107) mmol/L Carbon Dioxide 36 H (22-30) mmol/L BUN 131 H* (9-20) mg/dL Creatinine 2.97 H (0.66-1.25) mg/dL POC Glucose (mg/dL) 173 H 173 H (70-110) mg/dL 10/09/23 Range/Units 11:44 Chloride (98-107) mmol/L Carbon Dioxide (22-30) mmol/L BUN (9-20) mg/dL Creatinine (0.66-1.25) mg/dL POC Glucose (mg/dL) 154 H (70-110) mg/dL Assessment and Plan Assessment: 1. Acute kidney injury, cardiorenal, initially improved post diuresis. Serum creatinine increased again secondary to diuresis. No evidence of obstruction on previous ultrasound on 08/31/2023. BUN disproportionately elevated secondary to steroids 2. Acute diastolic heart failure. EF 50-55% on echocardiogram in 08/25/2023 3. Volume overload status post diuresis currently switched to oral Lasix from Lasix drip. 4. Acute hypoxic respiratory failure with hypercapnia 5. Paroxysmal A. fib 6. Obesity Plan: Decrease Lasix Repeat labs in a.m. Salt and fluid restriction post discharge Follow-up as outpatient closely for titration of diuretics.
[2023-10-09 16:36] LABS: Glucose,Whole Blood 146 mg/dL (70-110)
[2023-10-09 20:26] LABS: Glucose,Whole Blood 206 mg/dL (70-110)
[2023-10-09] MEDS: GABAPENTIN 300 MG CAP PO SCH (22:03)
[2023-10-09] MEDS: SERTRALINE 100 MG TAB PO SCH (22:03)
[2023-10-09] MEDS: ATORVASTATIN 20 MG TAB PO SCH (22:03)
[2023-10-09] MEDS: TAMSULOSIN 0.4 MG CAP.ER.24H PO SCH (22:03)
[2023-10-09] MEDS: MONTELUKAST 10 MG TAB PO SCH (22:03)
[2023-10-10] MEDS: ZINC OXIDE PASTE (Z-GUARD) 1 APPLIC APPLIC TOPICAL PRN (01:15)
[2023-10-10 06:01] LABS: Glucose,Whole Blood 179 mg/dL (70-110)
[2023-10-10] MEDS: PANTOPRAZOLE 40 MG TABLET PO SCH (06:17)
[2023-10-10] MEDS: IPRATROPIUM-ALBUTEROL 3 ML NEB INHALATION SCH ×4 (07:56→20:55)
[2023-10-10] MEDS: SYMBICORT 160-4.5 MCG INHALER INHALATION SCH ×2 (07:56→20:55)
[2023-10-10] MEDS: SODIUM CHLORIDE 0.9% 1,000 ML IV SCH (09:03)
[2023-10-10] MEDS: CHOLECALCIFEROL 25 MCG (1000 IU) TABLET PO SCH (09:05)
[2023-10-10] MEDS: CYANOCOBALAMIN 500 MCG TAB PO SCH (09:05)
[2023-10-10] MEDS: predniSONE 20 MG TAB PO SCH (09:06)
[2023-10-10] MEDS: AMMONIUM LACTATE 12% LOTION 225 GM BTL TOPICAL SCH ×2 (09:06→20:25)
[2023-10-10] MEDS: METOPROLOL TARTRATE 12.5 MG TAB PO SCH ×2 (09:06→20:15)
[2023-10-10] MEDS: APIXABAN 2.5 MG TABLET PO SCH ×2 (09:06→20:15)
[2023-10-10] MEDS: guaiFENesin SYRUP 100MG/5ML 200 MG/10 ML CUP PO PRN (09:10)
[2023-10-10 11:33] LABS: Glucose,Whole Blood 139 mg/dL (70-110)
--- NOTE | 2023-10-10 11:55 | P.PN ---
Subjective Progress Note Date: 10/10/23 Principal diagnosis: Shortness of breath. This is 73-year-old male patient with a known history of congestive heart failure, asthma/COPD, obstructive sleep apnea with CPAP, chronic oxygen dependence, hyperlipidemia, hypertension, paroxysmal atrial fibrillation, chronic leg wounds, frequent readmissions for congestive heart failure and hypoxic respiratory failure. Patient was discharged 15 days ago for similar symptoms. He resides at a local extended care facility. The patient had been pulling off his CPAP device there and an unknown time of how long he had been without it and was found altered and hypoxemic. He was brought back to the emergency room early this morning for the same. Chest x-ray reveals cardiomegaly and severe pulmonary edema with mild pleural effusions. Computed tomography scan of the brain revealed no acute intracranial abnormalities. Moderate atrophy and chronic microvascular ischemic changes. White count 12.9. Hemoglobin 9.2. Platelets 158. Sodium 137. Potassium 3.9. Bicarb 28. BUN 88. Creatinine 2.14. AST 27. ALT 23. Troponin negative times one. ProBNP 3690. Arterial blood gases on 40% FiO2 revealed a PaO2 of 95, P CO2 of 52 and at pH of 7.42. He was given a breathing treatment and Decadron. He is seen today in the emergency department. He remains arousable but unable to answer any questions. He is on BiPAP 12/6 at 40% FiO2 with the current 2 saturation 96%. He is afebrile. Hemodynamically stable. The patient is seen today 10/05/2023 in follow-up on the selective care unit. He is better today compared to yesterday. Currently on the off the BiPAP which she has been utilizing 12/6 at 40% FiO2. Currently on 4 L nasal cannula. He has less lower extremity edema. He is responding well to the Lasix drip which is at 10 mg per hour. Currently in a -2.8 L balance. Lynn catheter remains in place. Continue on DuoNeb inhalations, Azmacort and Perforomist inhalations, Solu-Medrol. He is anticoagulated with Xarelto. The patient is seen today 10/06/2023 in follow-up on the selective care unit. He is sitting up in a chair. Awake and alert in no acute distress. Currently on 4 L nasal cannula with O2 saturations in the 90s. He does utilize BiPAP 12/6 and 40% FiO2 at nighttime and during the day while napping. He is continued on the Lasix drip at 10 mg per hour. Currently in a -1.7 L balance. Lynn catheter remains in place. White count 8.9. Hemoglobin 8.5. Platelets 208. Sodium 143. Potassium 3.5. Bicarb 35. BUN 101. Creatinine 2.00. Glucose 158. He is continued on DuoNeb inhalations, Pulmicort and Perforomist inhalations, Solu-Medrol and Singulair. Anticoagulated with Xarelto. Remains on Tessalon Perles. Progress note dated 10/07/2023. 73-year-old male seen today in room 382. Currently, the patient is on 4 L of oxygen, by nasal cannula. The patient also uses BiPAP, with settings of 12/6, and 40%. The patient is not receiving any IV fluids. He is improving. Today, we converted to Solu-Medrol to prednisone 20 mg a day, and convert his budesonide and formoterol, to Symbicort, 160/4.5, 2 puffs twice a day. Laboratory data today includes a sodium 142, potassium 3.7, chlorides 89, CO2 36, anion gap 17, BUN 107, and creatinine 1.74. Glucose is 153, and calcium is 9.5. Chest x-ray from October 06, shows improving CHF. Progress note dated 10/08/2023. 73-year-old male seen in room 382. Currently, the patient's resting comfortably on 4 L of oxygen. His saturations are adequate. When not on oxygen therapy, the patient does use BiPAP, with settings of 12/6, and 40%. The patient is not receiving any IV fluids. His breathing has been stable for the last couple of days. His white count is 9.3, hemoglobin 9.2, hematocrit 29.7, and platelet count was normal at 299,000. Sodium 142, potassium 3.3, chlorides 89, CO2 38, BUN 117, and creatinine 2.35. Glucose 115. Calcium is 9.4. Progress note dated 10/09/2023. 73-year-old male seen today in room 382. The patient remains on nasal O2 at 4 L. He does use BiPAP intermittently, at 12/6, and 40%. Recently, he has not been very compliant with his BiPAP. The patient is currently being evaluated f or transfer [facility] to his [facility]. Labs today include a sodium 142, potassium 4, chlorides 91, CO2 36, anion gap 15, BUN 131, and creatinine 2.97. Calcium is 9.3. Blood glucose is 154. Progress note dated 10/10/2023. 73-year-old male who was seen today in room 382. The patient continues on oxygen at 4 L. The patient is hoping to be discharged soon. At nighttime, he uses BiPAP, with settings of 12/6 and 40%. Patient is hoping be discharged back to the [facility]. He denies any shortness of breath, cough, wheezing, chest tightness, chest pain, or chest pressure. He has been stable for the last 3 days. No new labs today other than a glucose of 139. Objective - Vital Signs Vital signs: Vital Signs Temp 98.7 F 10/10/23 08:00 Pulse 82 10/10/23 10:57 Resp 18 10/10/23 10:57 BP 83/47 10/10/23 08:00 Pulse Ox 93 L 10/10/23 08:00 FiO2 40 10/10/23 07:57 Intake & Output 10/09/23 10/10/23 10/10/23 18:59 06:59 18:59 Intake Total 240 900 240 Output Total 900 1450 Balance -660 -550 240 Weight 100.4 kg Intake: Oral 240 900 240 Output: Urine 900 1450 Other: Voiding Method Indwelling Catheter Indwelling Catheter # Voids 1 1 # Bowel Movements 1 - Exam No acute distress, oriented 3. Currently on 4 L of oxygen. No conversational dyspnea or use of accessory muscles. HEENT examination is grossly unremarkable. Mucous membranes are moist. No oral lesions. Neck supple. Full range of motion. No adenopathy thyromegaly or neck vein distention. Cardiovascular examination reveals regular rhythm rate. S1-S2 normal. No S3 or S4. No discernible murmur noted. Heart rate 82 bpm. Lungs reveal mild bibasilar crackles. No wheezes or rhonchi. Breath sounds are equal bilaterally. 4 L saturation is 93 %. Abdomen is obese. Bowel sounds are normal. No masses or tenderness. Extremities are intact. No cyanosis or clubbing. Edema is noted. Skin is without rash or lesion. Neurologic examination is brief but nonfocal. - Labs CBC & Chem 7: 10/08/23 10:52 10/09/23 08:09 Labs: Abnormal Lab Results - Last 24 Hours (Table) 10/09/23 10/09/23 10/10/23 Range/Units 16:34 20:22 06:00 POC Glucose (mg/dL) 146 H 206 H 179 H (70-110) mg/dL 10/10/23 Range/Units 11:31 POC Glucose (mg/dL) 139 H (70-110) mg/dL Assessment and Plan Assessment: Acute exacerbation of chronic diastolic CHF. Altered mental status secondary to above, recovered. Acute exacerbation of chronic bronchial asthma/COPD. Acute on chronic hypoxemic and hypercapnic respiratory failure, currently on 4 L nasal cannula alternating with BiPAP 12 over 6 and 40% FiO2. Multiple admissions due to the above. Paroxysmal atrial fibrillation. Chronic kidney disease stage III. Anemia of chronic disease. Obstructive sleep apnea syndrome, maintained on CPAP. Chronic venous stasis and right lower extremity wounds. Benign essential hypertension. History of hyperlipidemia. Morbid obesity. Poor overall functional performance based on the above-mentioned multiple comorbidities. prison resident. Plan: Plan dated 10/07/2023. The patient appears to be doing better. The patient is currently on 4 L nasal cannula. We will change his Solu-Medrol to prednisone 20 mg a day. In addition, we will change his budesonide and formoterol updrafts, to Symbicort, 160/4.5, 2 puffs twice a day. Labs, x-rays, medications are reviewed. The patient's overall prognosis remains very guarded. The patient has multiple recent admissions, for a similar condition. We will continue to follow and make recommendations along the way. Plan dated 10/08/2023. The patient appears to be relatively stable. The patient continues on oxygen, at 4 L by nasal cannula, during the daytime, and uses BiPAP, intermittently at nighttime, with settings of 12/6, and 40%. Labs, x-rays, and medications are reviewed. The patient's on appropriate medications, and, hopefully we'll be able to be discharged back to the [facility] in next few days. Additional recommendations and suggestions are forthcoming. Overall prognosis remains very guarded. The patient has been in and out of the hospital recently, quite a bit. Plan dated 10/09/2023. The patient appears to be pretty much at his baseline. He does continue on oxygen at 4 L, which is what he uses as an outpatient. Clinically, the patient has been stable the last few days. Labs, x-rays, and medications are reviewed. The patient does use of BiPAP intermittently, but has not been particularly compliant with it. Also, at times, especially at nighttime, he will pull it off . We will continue to follow and make recommendations along the way. Prognosis is guarded. Plan dated 10/10/2023. The patient has been very stable the last 3 or 4 days. He continues on oxygen, at 4 L. He does use BiPAP at nighttime. Labs, x-rays, medications are all reviewed. The patient's overall prognosis remains guarded. He has had frequent recent admissions to this hospital. We will continue to follow. Time with Patient: Less than 30
--- NOTE | 2023-10-10 12:30 | P.PN ---
Subjective Progress Note Date: 10/10/23 HISTORY OF PRESENT ILLNESS: This is a 73-year-old male with a previous medical history significant for hypertension and hypertensive cardiovascular disease, hyperlipidemia, obesity with obstructive sleep apnea and obesity hypoventilation syndrome, chronic diastolic heart failure, asthma, hypothyroidism, anxiety and depressive disorder, peripheral neuropathy. Patient has had multiple hospitalizations for acute on chronic diastolic heart failure and acute exacerbation of COPD. Patient has had multiple hospitalizations for acute on chronic diastolic heart failure, pulmonary edema, acute exacerbation of COPD, acute on chronic respiratory failure, acute kidney injury, thrombocytopenia, anemia with concern for MDS seen by oncology thought to be due to acute reactivity. Patient is now a long-term resident at [facility]. Patient came into the hospital on 10/04 for hypoxia and dyspnea mental status changes. Patient was refusing to use his CPAP machine. Patient was admitted to the cardiac stepdown unit has been seen in consultation by pulmonary medicine and neurology. Patient has been maintained on BiPAP during the night. He is mental status is back to baseline. Patient was also started on Lasix drip by pulmonary medicine and transitioned to oral. Consult has been added today for nephrology for kidney failure. Lab work reveals hemoglobin of 8.5, BUN 101 and creatinine 2. Capillary blood glucose running between 193 and 219. Patient feels that his breathing is a little bit better today. Blood pressure 99/56, heart rate 78, pulse ox 94% on 4 L nasal cannula. 10/07: Patient is seen today in follow-up. He has been compliant with BiPAP at nighttime. Patient is on a fluid restriction of 1500 ML's. He states he is a little bit short of breath but better from yesterday. He continues to have a cough with sputum production. Consult in place for nephrology to see him today. Repeat BUN 107 creatinine 1.74. Blood pressure 115/66, heart rate in the 60s and 70s, he has been afebrile, pulse ox 99% on 4 L. 10/08: Patient has been afebrile, heart rate in the 70s, blood pressure 122/82, pulse ox 95% on 4 L nasal cannula. Repeat blood work reveals hemoglobin 9.2, potassium 3.3 and has been replaced. BUN 117 creatinine 2.35. Patient is followed by nephrology with recommendations to continue current dose of Lasix 80 mg twice daily. Patient to continue salt and fluid restriction after discharge. Patient is also followed by pulmonary medicine. Patient has been using BiPAP at nighttime. Patient is found resting in bed. He continues to have a congested cough. He went into episode of A. fib with RVR and converted during the night. He has been maintained on Xarelto which will be transitioned to eliquis due to renal failure. Patient appears fatigued today. 10/09: Blood pressure is low this morning at 80/50, heart rate is in the 60s and 70s, pulse ox 93% on 4 L nasal cannula. Patient has continued worsening of his renal function with BUN 131 and creatinine 2.97. Potassium is 4. Capillary blood glucose running between 110 in 173. Patient has been seen by pulmonary medicine this morning clear for discharge. Patient has been seen and followed by nephrology for acute kidney injury. 12/10: M patient is most upset today about having fluid restriction. Fluid restriction is 1500 ML's. Patient has been cleared for discharge by pulmonary medicine. Patient was not discharged yesterday as he did have some dyspnea and also his renal function had worsened. He still appears dyspneic but quite at his baseline. Heart rate is running 80-204, blood pressure 85/55, pulse ox 93% on 4 L nasal cannula. Repeat lab work will be ordered. Lasix has been di scontinued. REVIEW OF SYSTEMS: Constitutional: No documented fever, no chills, no night sweats. No weight change. No weakness, fatigue or lethargy. No daytime sleepiness. HEENT: No headache. No blurred vision or double vision, no loss of vision. No loss of Hearing, no ringing in the ears, no dizziness. No nasal drainage or congestion. No epistaxis. No sore throat. Lungs: positive for shortness of breath-improving, occasional cough, minimal sputum production. No wheezing. Reports dyspnea with activity. Cardiovascular: positive for chest pain, positive chronic lower extremity edema. No palpitations. positive for paroxysmal nocturnal dyspnea. positive for orthopnea. No lightheadedness or dizziness. No syncopal episodes. Abdominal: Reports abdominal pain. No nausea, vomiting. No diarrhea. No constipation. No bloody or tarry stools reports loss of appetite. Genitourinary: No dysuria, increased frequency, urgency, Lynn catheter in place Musculoskeletal: No myalgias. positive for muscle weakness, positive for gait dysfunction, positive for frequent falls. positive for back pain. No neck pain, bilateral hip pain Integumentary: No wounds, no lesions. No rash or pruritus. No unusual bruising. No change in hair or nails. Neurologic: No aphasia. No facial droop. + change in mentation-back to baseline. No head injury. No headache. No paralysis. No paresthesia. Psychiatric: No depression. No anxiety. No mood swings. Endocrine: No abnormal blood sugars. No weight change. PHYSICAL EXAMINATION: General: 73-year-old male sitting in recliner in no respiratory distress. HEENT: Head is atraumatic, normocephalic, pupils were equal round reactive to light and recommendation, extraocular muscle movement were intact, sclera nonicteric, conjunctivae were pale, mucous membranes of the mouth are somewhat dry. Neck: Supple, no JVP, normal carotid upstroke bilaterally, no lymphadenopathy. Chest: Decreased breath sounds at the bases, few rhonchi, mild expiratory wheezes, no chest wall tenderness, mild intercostal retractions, mild accessory muscle usage. Heart: First heart sound is normal, second heart sound is normal, there is systolic ejection murmur 2/6 located in the left sternal border. Abdomen: Soft, nontender, nondistended, positive bowel sounds, obese. Extremities: There is +1 edema no calf tenderness DP +2 bilaterally, there is bilateral scabbed lesions in both shins free Neurologic examination: Patient is awake alert and oriented X 3, cranial nerves II-12 appear grossly intact, muscle power were 4 out of 5 in upper extremities and 3/5 in bilateral lower extremities ASSESSMENT AND PLAN: 1. Acute hypoxemic respiratory failure due to acute on chronic diastolic heart failure and acute exacerbation of COPD wit RAMYA and OHS and not wearing CPAP. Continue oral prednisone, continue Symbicort twice daily, monitor input and output and daily weight, continue DuoNeb treatments 4 times daily and as needed, Singulair 10 mg at bedtime. Oral Lasix has been discontinued Consult with pulmonary medicine appreciated. 2. Acute metabolic encephalopathy secondary to noncompliance with CPAP. Patient continue BiPAP at nighttime and when sleeping. Troponin consult appreciated 3. Acute kidney injury. Consult with nephrology appreciated. Patient is on 1500 ML fluid restriction and to be on a low-salt diet. 4. Paroxysmal atrial fibrillation/ Flutter. Continue patient on metoprolol 37.5 mg orally twice every day, discontinue Xarelto and start patient on eliquis 2.5 mg twice daily 5. Hypertension and hypertensive cardiovascular disease. Continue patient on metoprolol 37.5 mg orally twice every day, monitor the patient blood pressure very closely. 6. Hyperlipidemia. Continue patient on atorvastatin 20 mg orally once every day, monitor lipid panel, keep LDL 55-70. 7. Enlarged prostate. Continue patient on tamsulosin 0.4 mg orally once every day. Patient has Lynn catheter. 8. Anxiety disorder. Continue patient on sertraline 100 mg orally once every day. 9. Neuropathy. Continue patient on gabapentin 300 mg at bedtime. 10. DVT prophylaxis. Eliquis 2.5 mg twice daily 11. GI prophylaxis. Continue patient on Protonix 40 mg orally once every day. 12. manager rental consult for discharge planning: Return to [facility] NO CODE Impression and plan of care have been directed as dictated by the signing physician. Concepción Perkins nurse practitioner acting as scribe for signing physician. Objective - Vital Signs Vital signs: Vital Signs Temp 97.8 F 10/09/23 08:00 Pulse 68 10/09/23 11:18 Resp 20 10/09/23 08:00 BP 80/50 10/09/23 09:56 Pulse Ox 93 L 10/09/23 08:00 FiO2 40 10/09/23 04:30 Intake & Output 10/08/23 10/09/23 10/09/23 18:59 06:59 18:59 Intake Total 1300 480 120 Output Total 200 350 400 Balance 1100 130 -280 Intake: Oral 1300 480 120 Output: Urine 200 350 400 Other: Voiding Method Indwelling Catheter Indwelling Catheter # Voids 1 - Labs CBC & Chem 7: 10/08/23 10:52 10/11/23 07:52 Labs: Abnormal Lab Results - Last 24 Hours (Table) 10/08/23 10/08/23 10/08/23 Range/Units 10:52 16:37 20:19 Potassium 3.3 L (3.5-5.1) mmol/L Chloride 89 L (98-107) mmol/L Carbon Dioxide 38 H (22-30) mmol/L BUN 117 H* (9-20) mg/dL Creatinine 2.35 H (0.66-1.25) mg/dL Glucose 115 H (74-99) mg/dL POC Glucose (mg/dL) 173 H 173 H (70-110) mg/dL 10/09/23 10/09/23 Range/Units 08:09 11:44 Potassium (3.5-5.1) mmol/L Chloride 91 L (98-107) mmol/L Carbon Dioxide 36 H (22-30) mmol/L BUN 131 H* (9-20) mg/dL Creatinine 2.97 H (0.66-1.25) mg/dL Glucose (74-99) mg/dL POC Glucose (mg/dL) 154 H (70-110) mg/dL
[2023-10-10 13:37] LABS: African American GFR (CKD) 47 (>60 ml/min/1.73 sqM); Anion Gap 11 mmol/L; Calcium 9.5 mg/dL (8.4-10.2); Carbon Dioxide 34 mmol/L (22-30); Chloride 95 mmol/L (98-107); Glucose 157 mg/dL (74-99); Non-African American GFR(CKD) 41 (>60 ml/min/1.73 sqM); Sodium 140 mmol/L (137-145)
[2023-10-10 13:40] LABS: Blood Urea Nitrogen 113 mg/dL (9-20)
[2023-10-10 14:51] VITALS: BMI 34.7
[2023-10-10 16:42] LABS: Glucose,Whole Blood 227 mg/dL (70-110)
--- NOTE | 2023-10-10 18:03 | P.PN ---
Subjective Patient is seen for follow-up for acute kidney injury mostly cardiorenal. He was admitted with volume overload and has been diuresed. Patient was initially on Lasix drip which is now discontinued and he is maintained on oral Lasix. Fairly comfortable. No complaints of shortness of breath. Weight is down by more than 10 kg since admission, if this is accurate. 24 hour urine output at 2.6 L Serum creatinine increased to 2.7 and is down to 1.6 today Objective - Vital Signs Vital signs: Vital Signs Temp 98.1 F 10/10/23 12:00 Pulse 82 10/10/23 15:36 Resp 23 10/10/23 15:36 BP 85/55 10/10/23 12:00 Pulse Ox 93 L 10/10/23 12:00 FiO2 40 10/10/23 15:24 Intake & Output 10/09/23 10/10/23 10/10/23 18:59 06:59 18:59 Intake Total 240 900 358 Output Total 900 1450 1000 Balance -660 550 -642 Weight 100.4 kg 100.4 kg Intake: Oral 240 900 358 Output: Urine 900 1450 1000 Other: Voiding Method Indwelling Catheter Indwelling Catheter # Voids 1 1 # Bowel Movements 1 - Exam Patient is awake, comfortable, in no acute distress Alert oriented 3 Examination of the heart S1 and S2 Examination of the lungs bilateral breath sounds are heard Abdomen is soft obese nontender Examination lower extremity shows significant edema, 2+ bilaterally, decreasing QUALIFICATION ENGINEER exam grossly intact - Labs CBC & Chem 7: 10/08/23 10:52 10/10/23 12:42 Labs: Abnormal Lab Results - Last 24 Hours (Table) 10/09/23 10/10/23 10/10/23 Range/Units 20:22 06:00 11:31 Chloride (98-107) mmol/L Carbon Dioxide (22-30) mmol/L BUN (9-20) mg/dL Creatinine (0.66-1.25) mg/dL Glucose (74-99) mg/dL POC Glucose (mg/dL) 206 H 179 H 139 H (70-110) mg/dL 10/10/23 10/10/23 Range/Units 12:42 16:41 Chloride 95 L (98-107) mmol/L Carbon Dioxide 34 H (22-30) mmol/L BUN 113 H* (9-20) mg/dL Creatinine 1.64 H (0.66-1.25) mg/dL Glucose 157 H (74-99) mg/dL POC Glucose (mg/dL) 227 H (70-110) mg/dL Assessment and Plan Assessment: 1. Acute kidney injury, cardiorenal. No evidence of obstruction on previous u ltrasound on 08/31/2023. BUN disproportionately elevated secondary to steroids 2. Acute diastolic heart failure. EF 50-55% on echocardiogram in 08/25/2023 3. Volume overload status post diuresis currently switched to oral Lasix from Lasix drip. 4. Acute hypoxic respiratory failure with hypercapnia 5. Paroxysmal A. fib 6. Obesity Plan: Can resume lasix Repeat labs in a.m. Salt and fluid restriction post discharge Follow-up as outpatient closely for titration of diuretics.
[2023-10-10] MEDS ORDERED: FUROSEMIDE 10 MG/ML 4 ML VIAL IV STA (18:04)
[2023-10-10] MEDS: SERTRALINE 100 MG TAB PO SCH (20:15)
[2023-10-10] MEDS: ATORVASTATIN 20 MG TAB PO SCH (20:15)
[2023-10-10] MEDS: MELATONIN 5 MG TABLET PO PRN (20:15)
[2023-10-10] MEDS: GABAPENTIN 300 MG CAP PO SCH (20:15)
[2023-10-10] MEDS: TAMSULOSIN 0.4 MG CAP.ER.24H PO SCH (20:15)
[2023-10-10] MEDS: MONTELUKAST 10 MG TAB PO SCH (20:15)
[2023-10-10] MEDS: NYSTATIN 100,000 UNIT/GM POWD 15 GM TOPICAL SCH (20:17)
[2023-10-10 20:23] LABS: Glucose,Whole Blood 163 mg/dL (70-110)
[2023-10-11] MEDS: PANTOPRAZOLE 40 MG TABLET PO SCH (06:18)
[2023-10-11 06:22] LABS: Glucose,Whole Blood 99 mg/dL (70-110)
[2023-10-11] MEDS: SYMBICORT 160-4.5 MCG INHALER INHALATION SCH ×2 (08:05→20:40)
[2023-10-11] MEDS: IPRATROPIUM-ALBUTEROL 3 ML NEB INHALATION SCH ×4 (08:05→20:40)
[2023-10-11] MEDS: CYANOCOBALAMIN 500 MCG TAB PO SCH (09:13)
[2023-10-11] MEDS: CHOLECALCIFEROL 25 MCG (1000 IU) TABLET PO SCH (09:13)
[2023-10-11] MEDS: FUROSEMIDE 20 MG TAB PO SCH ×2 (09:14→17:20)
[2023-10-11] MEDS: NYSTATIN 100,000 UNIT/GM POWD 15 GM TOPICAL SCH ×2 (09:14→21:05)
[2023-10-11] MEDS: AMMONIUM LACTATE 12% LOTION 225 GM BTL TOPICAL SCH ×2 (09:14→20:31)
[2023-10-11] MEDS: APIXABAN 2.5 MG TABLET PO SCH ×2 (09:14→20:28)
[2023-10-11] MEDS: predniSONE 20 MG TAB PO SCH (09:14)
[2023-10-11] MEDS: METOPROLOL TARTRATE 12.5 MG TAB PO SCH ×2 (09:14→20:28)
[2023-10-11 09:23] LABS: African American GFR (CKD) 64 (>60 ml/min/1.73 sqM); Blood Urea Nitrogen 95 mg/dL (9-20); Calcium 9.6 mg/dL (8.4-10.2); Chloride 95 mmol/L (98-107); Glucose 106 mg/dL (74-99); Non-African American GFR(CKD) 55 (>60 ml/min/1.73 sqM); Potassium 4.3 mmol/L (3.5-5.1); Sodium 145 mmol/L (137-145)
[2023-10-11] MEDS: SODIUM CHLORIDE 0.9% 1,000 ML IV SCH (09:27)
[2023-10-11 09:29] LABS: Anion Gap 13 mmol/L
[2023-10-11 09:34] LABS: Carbon Dioxide 37 mmol/L (22-30)
--- NOTE | 2023-10-11 10:53 | P.PN ---
Subjective Progress Note Date: 10/11/23 Principal diagnosis: Shortness of breath. This is 73-year-old male patient with a known history of congestive heart failure, asthma/COPD, obstructive sleep apnea with CPAP, chronic oxygen dependence, hyperlipidemia, hypertension, paroxysmal atrial fibrillation, chronic leg wounds, frequent readmissions for congestive heart failure and hypoxic respiratory failure. Patient was discharged 15 days ago for similar symptoms. He resides at a local extended care facility. The patient had been pulling off his CPAP device there and an unknown time of how long he had been without it and was found altered and hypoxemic. He was brought back to the emergency room early this morning for the same. Chest x-ray reveals cardiomegaly and severe pulmonary edema with mild pleural effusions. Computed tomography scan of the brain revealed no acute intracranial abnormalities. Moderate atrophy and chronic microvascular ischemic changes. White count 12.9. Hemoglobin 9.2. Platelets 158. Sodium 137. Potassium 3.9. Bicarb 28. BUN 88. Creatinine 2.14. AST 27. ALT 23. Troponin negative times one. ProBNP 3690. Arterial blood gases on 40% FiO2 revealed a PaO2 of 95, P CO2 of 52 and at pH of 7.42. He was given a breathing treatment and Decadron. He is seen today in the emergency department. He remains arousable but unable to answer any questions. He is on BiPAP 12/6 at 40% FiO2 with the current 2 saturation 96%. He is afebrile. Hemodynamically stable. The patient is seen today 10/05/2023 in follow-up on the selective care unit. He is better today compared to yesterday. Currently on the off the BiPAP which she has been utilizing 12/6 at 40% FiO2. Currently on 4 L nasal cannula. He has less lower extremity edema. He is responding well to the Lasix drip which is at 10 mg per hour. Currently in a -2.8 L balance. Lynn catheter remains in place. Continue on DuoNeb inhalations, Azmacort and Perforomist inhalations, Solu-Medrol. He is anticoagulated with Xarelto. The patient is seen today 10/06/2023 in follow-up on the selective care unit. He is sitting up in a chair. Awake and alert in no acute distress. Currently on 4 L nasal cannula with O2 saturations in the 90s. He does utilize BiPAP 12/6 and 40% FiO2 at nighttime and during the day while napping. He is continued on the Lasix drip at 10 mg per hour. Currently in a -1.7 L balance. Lynn catheter remains in place. White count 8.9. Hemoglobin 8.5. Platelets 208. Sodium 143. Potassium 3.5. Bicarb 35. BUN 101. Creatinine 2.00. Glucose 158. He is continued on DuoNeb inhalations, Pulmicort and Perforomist inhalations, Solu-Medrol and Singulair. Anticoagulated with Xarelto. Remains on Tessalon Perles. Progress note dated 10/07/2023. 73-year-old male seen today in room 382. Currently, the patient is on 4 L of oxygen, by nasal cannula. The patient also uses BiPAP, with settings of 12/6, and 40%. The patient is not receiving any IV fluids. He is improving. Today, we converted to Solu-Medrol to prednisone 20 mg a day, and convert his budesonide and formoterol, to Symbicort, 160/4.5, 2 puffs twice a day. Laboratory data today includes a sodium 142, potassium 3.7, chlorides 89, CO2 36, anion gap 17, BUN 107, and creatinine 1.74. Glucose is 153, and calcium is 9.5. Chest x-ray from October 06, shows improving CHF. Progress note dated 10/08/2023. 73-year-old male seen in room 382. Currently, the patient's resting comfortably on 4 L of oxygen. His saturations are adequate. When not on oxygen therapy, the patient does use BiPAP, with settings of 12/6, and 40%. The patient is not receiving any IV fluids. His breathing has been stable for the last couple of days. His white count is 9.3, hemoglobin 9.2, hematocrit 29.7, and platelet count was normal at 299,000. Sodium 142, potassium 3.3, chlorides 89, CO2 38, BUN 117, and creatinine 2.35. Glucose 115. Calcium is 9.4. Progress note dated 10/09/2023. 73-year-old male seen today in room 382. The patient remains on nasal O2 at 4 L. He does use BiPAP intermittently, at 12/6, and 40%. Recently, he has not been very compliant with his BiPAP. The patient is currently being evaluated f or transfer back to his [facility]. Labs today include a sodium 142, potassium 4, chlorides 91, CO2 36, anion gap 15, BUN 131, and creatinine 2.97. Calcium is 9.3. Blood glucose is 154. Progress note dated 10/10/2023. 73-year-old male who was seen today in room 382. The patient continues on oxygen at 4 L. The patient is hoping to be discharged soon. At nighttime, he uses BiPAP, with settings of 12/6 and 40%. Patient is hoping be discharged back to the [facility]. He denies any shortness of breath, cough, wheezing, chest tightness, chest pain, or chest pressure. He has been stable for the last 3 days. No new labs today other than a glucose of 139. Progress note dated 10/11/2023. 73-year-old male again seen in room 382. He continues on oxygen at 4 L. The patient does use BiPAP at nighttime, intermittently, with settings of 12/6, and 40%. Clinically, the patient is at baseline. From our perspective, the patient could be considered for discharge back to the [facility]. Currently laboratory data includes a sodium 145, potassium 4.3, chlorides 95, CO2 37, anion gap 13, BUN 95, and creatinine 1.28 his previous BUN and creatinine were 113 and 1.64. Sugar is 106, and calcium is 9.6. Objective - Vital Signs Vital signs: Vital Signs Temp 98.1 F 10/11/23 08:00 Pulse 88 10/11/23 08:19 Resp 20 10/11/23 08:00 BP 99/57 10/11/23 08:00 Pulse Ox 94 L 10/11/23 08:00 FiO2 40 10/11/23 03:50 Intake & Output 10/10/23 10/11/23 10/11/23 18:59 06:59 18:59 Intake Total 476 240 180 Output Total 1000 2600 Balance -524 2360 180 Weight 100.4 kg Intake: Oral 476 240 180 Output: Urine 1000 2600 Other: Voiding Method Indwelling Catheter # Bowel Movements 1 1 1 - Exam No acute distress, oriented 3. Currently on 4 L of oxygen. No conversational dyspnea or use of accessory muscles. HEENT examination is grossly unremarkable. Mucous membranes are moist. No oral lesions. Neck supple. Full range of motion. No adenopathy thyromegaly or neck vein distention. Cardiovascular examination reveals regular rhythm rate. S1-S2 normal. No S3 or S4. No discernible murmur noted. Heart rate 88 bpm. Lungs reveal mild bibasilar crackles. No wheezes or rhonchi. Breath sounds are equal bilaterally. 4 L saturation is 94 %. Abdomen is obese. Bowel sounds are normal. No masses or tenderness. Extremities are intact. No cyanosis or clubbing. Edema is noted. Skin is without rash or lesion. Neurologic examination is brief but nonfocal. - Labs CBC & Chem 7: 10/08/23 10:52 10/11/23 07:52 Labs: Abnormal Lab Results - Last 24 Hours (Table) 10/10/23 10/10/23 10/10/23 Range/Units 11:31 12:42 16:41 Chloride 95 L (98-107) mmol/L Carbon Dioxide 34 H (22-30) mmol/L BUN 113 H* (9-20) mg/dL Creatinine 1.64 H (0.66-1.25) mg/dL Glucose 157 H (74-99) mg/dL POC Glucose (mg/dL) 139 H 227 H (70-110) mg/dL 10/10/23 10/11/23 Range/Units 20:20 07:52 Chloride 95 L (98-107) mmol/L Carbon Dioxide 37 H (22-30) mmol/L BUN 95 H (9-20) mg/dL Creatinine 1.28 H (0.66-1.25) mg/dL Glucose 106 H (74-99) mg/dL POC Glucose (mg/dL) 163 H (70-110) mg/dL Assessment and Plan Assessment: Acute exacerbation of chronic diastolic CHF. Altered mental status secondary to above, recovered. Acute exacerbation of chronic bronchial asthma/COPD. Acute on chronic hypoxemic and hypercapnic respiratory failure, currently on 4 L nasal cannula alternating with BiPAP 12 over 6 and 40% FiO2. Multiple admissions due to the above. Paroxysmal atrial fibrillation. Chronic kidney disease stage III. Anemia of chronic disease. Obstructive sleep apnea syndrome, maintained on CPAP. Chronic venous stasis and right lower extremity wounds. Benign essential hypertension. History of hyperlipidemia. Morbid obesity. Poor overall functional performance based on the above-mentioned multiple comorbidities. assisted resident. Plan: Plan dated 10/07/2023. The patient appears to be doing better. The patient is currently on 4 L nasal cannula. We will change his Solu-Medrol to prednisone 20 mg a day. In addition, we will change his budesonide and formoterol updrafts, to Symbicort, 160/4.5, 2 puffs twice a day. Labs, x-rays, medications are reviewed. The patient's overall prognosis remains very guarded. The patient has multiple recent admissions, for a similar condition. We will continue to follow and make recommendations along the way. Plan dated 10/08/2023. The patient appears to be relatively stable. The patient continues on oxygen, at 4 L by nasal cannula, during the daytime, and uses BiPAP, intermittently at nighttime, with settings of 12/6, and 40%. Labs, x-rays, and medications are reviewed. The patient's on appropriate medications, and, hopefully we'll be able to be discharged back to the [facility] in next few days. Additional recommendations and suggestions are forthcoming. Overall prognosis remains very guarded. The patient has been in and out of the hospital recently, quite a bit. Plan dated 10/09/2023. The patient appears to be pretty much at his baseline. He does continue on oxygen at 4 L, which is what he uses as an outpatient. Clinically, the patient has been stable the last few days. Labs, x-rays, and medications are reviewed. The patient does use of BiPAP intermittently, but has not been particularly compliant with it. Also, at times, especially at nighttime, he will pull it off. We will continue to follow and make recommendations along the way. Prognosis is guarded. Plan dated 10/10/2023. The patient has been very stable the last 3 or 4 days. He continues on oxygen, at 4 L. He does use BiPAP at nighttime. Labs, x-rays, medications are all reviewed. The patient's overall prognosis remains guarded. He has had frequent recent admissions to this hospital. We will continue to follow. Plan dated 10/11/2023. The patient is seen today in room 382. He continues on 4 L of oxygen, which is what he wears at the [facility]. He is not receiving any IV fluids. He does use BiPAP at nighttime. We will continue to follow and make recommendations along the way. His overall prognosis remains guarded. Labs, x-rays, and medications are reviewed. Time with Patient: Less than 30
--- NOTE | 2023-10-11 11:16 | P.PN ---
Subjective Patient is seen for follow-up for acute kidney injury mostly cardiorenal. He was admitted with volume overload and has been diuresed. Patient was initially on Lasix drip which is now discontinued and he is maintained on oral Lasix. Fairly comfortable. No complaints of shortness of breath. Weight is down by more than 10 kg since admission, if this is accurate. 24 hour urine output at 2.6 L Serum creatinine decreased to 1.2 mg/dL Objective - Vital Signs Vital signs: Vital Signs Temp 98.1 F 10/11/23 08:00 Pulse 88 10/11/23 08:19 Resp 20 10/11/23 08:00 BP 99/57 10/11/23 08:00 Pulse Ox 94 L 10/11/23 08:00 FiO2 40 10/11/23 03:50 Intake & Output 10/10/23 10/11/23 10/11/23 18:59 06:59 18:59 Intake Total 476 240 180 Output Total 1000 2600 Balance -524 -2360 180 Weight 100.4 kg Intake: Oral 476 240 180 Output: Urine 1000 2600 Other: Voiding Method Indwelling Catheter # Bowel Movements 1 1 1 - Exam Patient is awake, comfortable, in no acute distress Alert oriented 3 Examination of the heart S1 and S2 Examination of the lungs bilateral breath sounds are heard Abdomen is soft obese nontender Examination lower extremity shows significant edema, 2+ bilaterally, decreasing MACHINE B[employer]CH [employer]KER exam grossly intact - Labs CBC & Chem 7: 10/08/23 10:52 10/11/23 07:52 Labs: Abnormal Lab Results - Last 24 Hours (Table) 10/10/23 10/10/23 10/10/23 Range/Units 11:31 12:42 16:41 Chloride 95 L (98-107) mmol/L Carbon Dioxide 34 H (22-30) mmol/L BUN 113 H* (9-20) mg/dL Creatinine 1.64 H (0.66-1.25) mg/dL Glucose 157 H (74-99) mg/dL POC Glucose (mg/dL) 139 H 227 H (70-110) mg/dL 10/10/23 10/11/23 Range/Units 20:20 07:52 Chloride 95 L (98-107) mmol/L Carbon Dioxide 37 H (22-30) mmol/L BUN 95 H (9-20) mg/dL Creatinine 1.28 H (0.66-1.25) mg/dL Glucose 106 H (74-99) mg/dL POC Glucose (mg/dL) 163 H (70-110) mg/dL Assessment and Plan Assessment: 1. Acute kidney injury, cardiorenal. No evidence of obstruction on previous ultrasound on 08/31/2023. BUN disproportionately elevated secondary to steroids, decreased 2. Acute diastolic heart failure. EF 50-55% on echocardiogram in 08/25/2023 3. Volume overload status post diuresis currently switched to oral Lasix from Lasix drip. 4. Acute hypoxic respiratory failure with hypercapnia 5. Paroxysmal A. fib 6. Obesity Plan: Continue current dose of oral Lasix Repeat labs in a.m. Salt and fluid restriction post discharge Follow-up as outpatient closely for titration of diuretics.
[2023-10-11 11:37] LABS: Glucose,Whole Blood 186 mg/dL (70-110)
--- NOTE | 2023-10-11 12:16 | XR ---
EXAMINATION TYPE: XR chest 1V DATE OF EXAM: 10/11/2023 12:02 PM CLINICAL INDICATION:Male, 73 years old with history of cough; [facility] COMPARISON: Chest radiographs from 10/06/2023. TECHNIQUE: XR chest 1V Frontal view of the chest. FINDINGS: Lungs/Pleura: Near complete opacification of the left hemithorax blunting of the costophrenic angle. The right lung demonstrates scattered opacities at the lung. Overall findings not significantly mora ed from 10/06/2023. Pulmonary vascularity: Pulmonary vascular congestion. Heart/mediastinum: Cardiomediastinal silhouette is enlarged and stable. Musculoskeletal: No acute osseous pathology. IMPRESSION: Grossly similar Cardiomegaly, pulmonary vascular congestion and bilateral pleural effusions.
[2023-10-11 17:35] LABS: Glucose,Whole Blood 122 mg/dL (70-110)
[2023-10-11 20:22] LABS: Glucose,Whole Blood 249 mg/dL (70-110)
[2023-10-11] MEDS: MONTELUKAST 10 MG TAB PO SCH (20:28)
[2023-10-11] MEDS: GABAPENTIN 300 MG CAP PO SCH (20:28)
[2023-10-11] MEDS: SERTRALINE 100 MG TAB PO SCH (20:28)
[2023-10-11] MEDS: TAMSULOSIN 0.4 MG CAP.ER.24H PO SCH (20:28)
[2023-10-11] MEDS: ACETAMINOPHEN TAB 500 MG TAB PO PRN (20:28)
[2023-10-11] MEDS: ATORVASTATIN 20 MG TAB PO SCH (20:28)
[2023-10-12 07:28] LABS: Glucose,Whole Blood 101 mg/dL (70-110)
[2023-10-12] MEDS: SYMBICORT 160-4.5 MCG INHALER INHALATION SCH ×2 (07:49→20:22)
[2023-10-12] MEDS: IPRATROPIUM-ALBUTEROL 3 ML NEB INHALATION SCH ×4 (07:49→20:22)
--- NOTE | 2023-10-12 08:28 | P.PN ---
Subjective Progress Note Date: 10/11/23 HISTORY OF PRESENT ILLNESS: This is a 73-year-old male with a previous medical history significant for hypertension and hypertensive cardiovascular disease, hyperlipidemia, obesity with obstructive sleep apnea and obesity hypoventilation syndrome, chronic diastolic heart failure, asthma, hypothyroidism, anxiety and depressive disorder, peripheral neuropathy. Patient has had multiple hospitalizations for acute on chronic diastolic heart failure and acute exacerbation of COPD. Patient has had multiple hospitalizations for acute on chronic diastolic heart failure, pulmonary edema, acute exacerbation of COPD, acute on chronic respiratory failure, acute kidney injury, thrombocytopenia, anemia with concern for MDS seen by oncology thought to be due to acute reactivity. Patient is now a long-term resident at [facility]. Patient came into the hospital on 10/04 for hypoxia and dyspnea mental status changes. Patient was refusing to use his CPAP machine. Patient was admitted to the cardiac stepdown unit has been seen in consultation by pulmonary medicine and neurology. Patient has been maintained on BiPAP during the night. He is mental status is back to baseline. Patient was also started on Lasix drip by pulmonary medicine and transitioned to oral. Consult has been added today for nephrology for kidney failure. Lab work reveals hemoglobin of 8.5, BUN 101 and creatinine 2. Capillary blood glucose running between 193 and 219. Patient feels that his breathing is a little bit better today. Blood pressure 99/56, heart rate 78, pulse ox 94% on 4 L nasal cannula. 10/07: Patient is seen today in follow-up. He has been compliant with BiPAP at nighttime. Patient is on a fluid restriction of 1500 ML's. He states he is a little bit short of breath but better from yesterday. He continues to have a cough with sputum production. Consult in place for nephrology to see him today. Repeat BUN 107 creatinine 1.74. Blood pressure 115/66, heart rate in the 60s and 70s, he has been afebrile, pulse ox 99% on 4 L. 10/08: Patient has been afebrile, heart rate in the 70s, blood pressure 122/82, pulse ox 95% on 4 L nasal cannula. Repeat blood work reveals hemoglobin 9.2, potassium 3.3 and has been replaced. BUN 117 creatinine 2.35. Patient is followed by nephrology with recommendations to continue current dose of Lasix 80 mg twice daily. Patient to continue salt and fluid restriction after discharge. Patient is also followed by pulmonary medicine. Patient has been using BiPAP at nighttime. Patient is found resting in bed. He continues to have a congested cough. He went into episode of A. fib with RVR and converted during the night. He has been maintained on Xarelto which will be transitioned to eliquis due to renal failure. Patient appears fatigued today. 10/09: Blood pressure is low this morning at 80/50, heart rate is in the 60s and 70s, pulse ox 93% on 4 L nasal cannula. Patient has continued worsening of his renal function with BUN 131 and creatinine 2.97. Potassium is 4. Capillary blood glucose running between 110 in 173. Patient has been seen by pulmonary medicine this morning clear for discharge. Patient has been seen and followed by nephrology for acute kidney injury. 12/10: M patient is most upset today about having fluid restriction. Fluid restriction is 1500 ML's. Patient has been cleared for discharge by pulmonary medicine. Patient was not discharged yesterday as he did have some dyspnea and also his renal function had worsened. He still appears dyspneic but quite at his baseline. Heart rate is running 80-204, blood pressure 85/55, pulse ox 93% on 4 L nasal cannula. Repeat lab work will be ordered. Lasix has been di scontinued. 10/11: Patient is sitting up in bed , feels miserable , continues to have cough and appears a bit short of breath, we loosened his fluid restriction, we will continue to monitor very closely, we will repeat CMP today and his creatinine 1.6 and BUN is improving slowly, his prognosis is very guarded and the plaan to get back to [facility] next week REVIEW OF SYSTEMS: Constitutional: No documented fever, no chills, no night sweats. No weight change. No weakness, fatigue or lethargy. No daytime sleepiness. HEENT: No headache. No blurred vision or double vision, no loss of vision. No loss of Hearing, no ringing in the ears, no dizziness. No nasal drainage or congestion. No epistaxis. No sore throat. Lungs: positive for shortness of breath-improving, occasional cough, minimal sputum production. No wheezing. Reports dyspnea with activity. Cardiovascular: positive for chest pain, positive chronic lower extremity edema. No palpitations. positive for paroxysmal nocturnal dyspnea. positive for orthopnea. No lightheadedness or dizziness. No syncopal episodes. Abdominal: Reports abdominal pain. No nausea, vomiting. No diarrhea. No constipation. No bloody or tarry stools reports loss of appetite. Genitourinary: No dysuria, increased frequency, urgency, Lynn catheter in place Musculoskeletal: No myalgias. positive for muscle weakness, positive for gait dysfunction, positive for frequent falls. positive for back pain. No neck pain, bilateral hip pain Integumentary: No wounds, no lesions. No rash or pruritus. No unusual bruising. No change in hair or nails. Neurologic: No aphasia. No facial droop. + change in mentation-back to baseline. No head injury. No headache. No paralysis. No paresthesia. Psychiatric: No depression. No anxiety. No mood swings. Endocrine: No abnormal blood sugars. No weight change. PHYSICAL EXAMINATION: General: 73-year-old male sitting in recliner in no respiratory distress. HEENT: Head is atraumatic, normocephalic, pupils were equal round reactive to light and recommendation, extraocular muscle movement were intact, sclera nonicteric, conjunctivae were pale, mucous membranes of the mouth are somewhat dry. Neck: Supple, no JVP, normal carotid upstroke bilaterally, no lymphadenopathy. Chest: Decreased breath sounds at the bases, few rhonchi, mild expiratory wheezes, no chest wall tenderness, mild intercostal retractions, mild accessory muscle usage. Heart: First heart sound is normal, second heart sound is normal, there is systolic ejection murmur 2/6 located in the left sternal border. Abdomen: Soft, nontender, nondistended, positive bowel sounds, obese. Extremities: There is +1 edema no calf tenderness DP +2 bilaterally, there is bilateral scabbed lesions in both shins free Neurologic examination: Patient is awake alert and oriented X 3, cranial nerves II-12 appear grossly intact, muscle power were 4 out of 5 in upper extremities and 3/5 in bilateral lower extremities ASSESSMENT AND PLAN: 1. Acute hypoxemic respiratory failure due to acute on chronic diastolic heart failure and acute exacerbation of COPD wit RAMYA and OHS and not wearing CPAP. Continue oral prednisone, continue Symbicort twice daily, monitor input and output and daily weight, continue DuoNeb treatments 4 times daily and as needed, Singulair 10 mg at bedtime. Oral Lasix has been discontinued Consult with pulmonary medicine appreciated. 2. Acute metabolic encephalopathy secondary to noncompliance with CPAP. Patient continue BiPAP at nighttime and when sleeping. 3. Acute kidney injury on chronic kidney disease stage 3b due to vasomotor nephropathy we will decrease fluid restriction to 2000 cc in 24 hours and we will continue with low salt diet, monitor CMP 4. Paroxysmal atrial fibrillation/ Flutter. Continue patient on metoprolol 37.5 mg orally twice every day, continue eliquis 2.5 mg twice daily 5. Hypertension and hypertensive cardiovascular disease. Continue patient on metoprolol 37.5 mg orally twice every day, monitor the patient blood pressure very closely. 6. Hyperlipidemia. Continue patient on atorvastatin 20 mg orally once every day, monitor lipid panel, keep LDL 55-70. 7. Enlarged prostate. Continue patient on tamsulosin 0.4 mg orally once every day. Patient has Lynn catheter. 8. Anxiety disorder. Continue patient on sertraline 100 mg orally once every day. 9. Neuropathy. Continue patient on gabapentin 300 mg at bedtime. 10. DVT prophylaxis. Eliquis 2.5 mg twice daily 11. GI prophylaxis. Continue patient on Protonix 40 mg orally once every day. 12. 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: Return to [facility] NO CODE Objective - Vital Signs Vital signs: Vital Signs Temp 98.1 F 10/11/23 08:00 Pulse 84 10/11/23 11:20 Resp 20 10/11/23 08:00 BP 99/57 10/11/23 08:00 Pulse Ox 94 L 10/11/23 08:00 FiO2 40 10/11/23 03:50 Intake & Output 10/10/23 10/11/23 10/11/23 18:59 06:59 18:59 Intake Total 476 240 180 Output Total 1000 2600 Balance -524 -2360 180 Weight 100.4 kg Intake: Oral 476 240 180 Output: Urine 1000 2600 Other: Voiding Method Indwelling Catheter # Bowel Movements 1 1 1 - Labs CBC & Chem 7: 10/08/23 10:52 10/11/23 07:52 Labs: Abnormal Lab Results - Last 24 Hours (Table) 10/10/23 10/10/23 10/10/23 Range/Units 11:31 12:42 16:41 Chloride 95 L (98-107) mmol/L Carbon Dioxide 34 H (22-30) mmol/L BUN 113 H* (9-20) mg/dL Creatinine 1.64 H (0.66-1.25) mg/dL Glucose 157 H (74-99) mg/dL POC Glucose (mg/dL) 139 H 227 H (70-110) mg/dL 10/10/23 10/11/23 Range/Units 20:20 07:52 Chloride 95 L (98-107) mmol/L Carbon Dioxide 37 H (22-30) mmol/L BUN 95 H (9-20) mg/dL Creatinine 1.28 H (0.66-1.25) mg/dL Glucose 106 H (74-99) mg/dL POC Glucose (mg/dL) 163 H (70-110) mg/dL
[2023-10-12] MEDS: FUROSEMIDE 20 MG TAB PO SCH ×2 (08:52→16:52)
[2023-10-12] MEDS: METOPROLOL TARTRATE 12.5 MG TAB PO SCH ×2 (08:52→22:10)
[2023-10-12] MEDS: PANTOPRAZOLE 40 MG TABLET PO SCH (08:52)
[2023-10-12] MEDS: predniSONE 10 MG TAB PO SCH (08:52)
[2023-10-12] MEDS: CHOLECALCIFEROL 25 MCG (1000 IU) TABLET PO SCH (08:52)
[2023-10-12] MEDS: APIXABAN 2.5 MG TABLET PO SCH ×2 (08:52→22:08)
[2023-10-12] MEDS: CYANOCOBALAMIN 500 MCG TAB PO SCH (08:52)
[2023-10-12] MEDS: SODIUM CHLORIDE 0.9% 1,000 ML IV SCH (08:53)
[2023-10-12] MEDS: NYSTATIN 100,000 UNIT/GM POWD 15 GM TOPICAL SCH ×2 (08:53→22:09)
[2023-10-12] MEDS: AMMONIUM LACTATE 12% LOTION 225 GM BTL TOPICAL SCH ×2 (08:53→22:08)
--- NOTE | 2023-10-12 09:58 | P.PN ---
Subjective Progress Note Date: 10/12/23 This is 73-year-old male patient with a known history of congestive heart failure, asthma/COPD, obstructive sleep apnea with CPAP, chronic oxygen dependence, hyperlipidemia, hypertension, paroxysmal atrial fibrillation, chronic leg wounds, frequent readmissions for congestive heart failure and hypoxic respiratory failure. Patient was discharged 15 days ago for similar symptoms. He resides at a local extended care facility. The patient had been pulling off his CPAP device there and an unknown time of how long he had been without it and was found altered and hypoxemic. He was brought back to the emergency room early this morning for the same. Chest x-ray reveals cardiomegaly and severe pulmonary edema with mild pleural effusions. Computed tomography scan of the brain revealed no acute intracranial abnormalities. Moderate atrophy and chronic microvascular ischemic changes. White count 12.9. Hemoglobin 9.2. Platelets 158. Sodium 137. Potassium 3.9. Bicarb 28. BUN 88. Creatinine 2.14. AST 27. ALT 23. Troponin negative times one. ProBNP 3690. Arterial blood gases on 40% FiO2 revealed a PaO2 of 95, P CO2 of 52 and at pH of 7.42. He was given a breathing treatment and Decadron. He is seen today in the emergency department. He remains arousable but unable to answer any que stions. He is on BiPAP 12/6 at 40% FiO2 with the current 2 saturation 96%. He is afebrile. Hemodynamically stable. The patient is seen today 10/05/2023 in follow-up on the selective care unit. H e is better today compared to yesterday. Currently on the off the BiPAP which she has been utilizing 12/6 at 40% FiO2. Currently on 4 L nasal cannula. He has less lower extremity edema. He is responding well to the Lasix drip which is at 10 mg per hour. Currently in a -2.8 L balance. Lynn catheter remains in place. Continue on DuoNeb inhalations, Azmacort and Perforomist inhalations, Solu-Medrol. He is anticoagulated with Xarelto. The patient is seen today 10/06/2023 in follow-up on the selective care unit. He is sitting up in a chair. Awake and alert in no acute distress. Currently on 4 L nasal cannula with O2 saturations in the 90s. He does utilize BiPAP 12/6 and 40% FiO2 at nighttime and during the day while napping. He is continued on the Lasix drip at 10 mg per hour. Currently in a -1.7 L balance. Lynn catheter remains in place. White count 8.9. Hemoglobin 8.5. Platelets 208. Sodium 143. Potassium 3.5. Bicarb 35. BUN 101. Creatinine 2.00. Glucose 158. He is continued on DuoNeb inhalations, Pulmicort and Perforomist inhalations, Solu-Medrol and Singulair. Anticoagulated with Xarelto. Remains on Tessalon Perles. The patient is seen today 10/12/2023 in follow-up on the regular medical floor. He is currently resting comfortably in bed. Awake and alert in no acute distress. BiPAP 12/6 and 40% FiO2 currently. No IV fluids. He remains with i ndwelling catheter. Currently in a -2.8 L balance. X-ray reveals cardiomegaly, pulmonary vascular congestion and bilateral pleural effusions. Blood sugar 101. He remains on oral diuretics. Continue on DuoNeb inhalations, Symbicort, Singulair and a prednisone taper. Anticoagulated with Eliquis. Objective - Vital Signs Vital signs: Vital Signs Temp 98.9 F 10/12/23 07:20 Pulse 88 10/12/23 07:57 Resp 17 10/12/23 07:20 BP 100/42 10/12/23 07:20 Pulse Ox 97 10/12/23 07:20 FiO2 40 10/12/23 03:32 Intake & Output 10/11/23 10/12/23 10/12/23 18:59 06:59 18:59 Intake Total 1200 590 Output Total 1200 700 Balance 0 -110 Intake: Oral 1200 590 Output: Urine 1200 700 Uretheral (Lynn) 700 Other: Voiding Method Indwelling Catheter # Bowel Movements 1 - Exam GENERAL EXAM: Awake, alert, 73-year-old male, on BiPAP 12/6 at 40% FiO2, in no acute distress. HEAD: Normocephalic. EYES: Normal reaction of pupils, equal size. NOSE: Clear with pink turbinates. THROAT: No erythema or exudates. NECK: No masses, no JVD. CHEST: No chest wall deformity. LUNGS: Equal air entry with bilateral crackles, diminished. CVS: S1 and S2 normal with no audible murmur, regular rhythm. ABDOMEN: No hepatosplenomegaly, normal bowel sounds, no guarding or rigidity. SPINE: No scoliosis or deformity SKIN: Edema and redness of the lower extremities, wrapped in bandages. CENTRAL NERVOUS SYSTEM: No focal deficits, tone is normal in all 4 extremities. EXTREMITIES: There is 2+ peripheral edema. BASIA wraps to the lower extremities. Changes of chronic venous stasis. Peripheral pulses are intact. - Labs CBC & Chem 7: 10/08/23 10:52 10/11/23 07:52 Labs: Abnormal Lab Results - Last 24 Hours (Table) 10/11/23 10/11/23 10/11/23 Range/Units 11:36 17:32 20:20 POC Glucose (mg/dL) 186 H 122 H 249 H (70-110) mg/dL Assessment and Plan Assessment: Acute exacerbation of chronic diastolic CHF, chest x-ray shows cardiomegaly, pulmonary vascular congestion, and pleural effusion. Echocardiogram 08/25/23 showed preserved left ventricular systolic function, ejection fraction 50-55% Altered mental status secondary to above, recovered Acute exacerbation of chronic bronchial asthma/COPD Acute on chronic hypoxemic and hypercapnic respiratory failure, currently on 4 L nasal cannula alternating with BiPAP 12 over 6 and 40% FiO2 Multiple admissions due to the above Paroxysmal atrial fibrillation., currently in sinus rhythm, anticoagulation with Xarelto Chronic kidney disease stage III Anemia of chronic disease Obstructive sleep apnea syndrome, maintained on CPAP. Chronic venous stasis and right lower extremity wounds Benign essential hypertension History of hyperlipidemia Morbid obesity Poor overall functional performance based on the above-mentioned multiple comorbidities prison resident Plan: The patient was seen and evaluated Medications and labs reviewed Continue Lasix 60 mg by mouth twice a day Remains in a negative balance Remains on bronchodilators, steroids Titrate the FiO2 as tolerated DO NOT RESUSCITATE/DO NOT INTUBATE CODE STATUS Plan is to return to [facility] post discharge This patient was seen independently by the nurse practitioner I have personally seen and examined the patient, performed the documentation and the assessment and plan as written. Number of minutes spent on the visit: 22.
--- NOTE | 2023-10-12 11:54 | P.PN ---
Subjective Patient is seen for follow-up for acute kidney injury mostly cardiorenal. He was admitted with volume overload and has been diuresed. Patient was initially on Lasix drip which is now discontinued and he is maintained on oral Lasix. Fairly comfortable. No complaints of shortness of breath. Weight is down by more than 10 kg since admission, if this is accurate. 24 hour urine output at 2.6 L Serum creatinine decreased to 1.2 mg/dL Objective - Vital Signs Vital signs: Vital Signs Temp 98.9 F 10/12/23 07:20 Pulse 87 10/12/23 11:22 Resp 17 10/12/23 07:20 BP 100/42 10/12/23 07:20 Pulse Ox 97 10/12/23 07:20 FiO2 40 10/12/23 03:32 Intake & Output 10/11/23 10/12/23 10/12/23 18:59 06:59 18:59 Intake Total 1200 590 240 Output Total 1200 700 Balance 0 -110 240 Intake: Oral 1200 590 240 Output: Urine 1200 700 Uretheral (Lynn) 700 Other: Voiding Method Indwelling Catheter Indwelling Catheter # Bowel Movements 1 1 - Exam Patient is awake, comfortable, in no acute distress Alert oriented 3 Examination of the heart S1 and S2 Examination of the lungs bilateral breath sounds are heard Abdomen is soft obese nontender Examination lower extremity shows significant edema, 2+ bilaterally, decreasing [employer] exam grossly intact - Labs CBC & Chem 7: 10/08/23 10:52 10/11/23 07:52 Labs: Abnormal Lab Results - Last 24 Hours (Table) 10/11/23 10/11/23 Range/Units 17:32 20:20 POC Glucose (mg/dL) 122 H 249 H (70-110) mg/dL Assessment and Plan Assessment: 1. Acute kidney injury, cardiorenal. No evidence of obstruction on previous ultrasound on 08/31/2023. BUN disproportionately elevated secondary to steroids, decreased now. 2. Acute diastolic heart failure. EF 50-55% on echocardiogram in 08/25/2023 3. Volume overload status post diuresis currently switched to oral Lasix from Lasix drip. 4. Acute hypoxic respiratory failure with hypercapnia 5. Paroxysmal A. fib 6. Obesity Plan: Continue current dose of oral Lasix Repeat labs in a.m. Salt and fluid restriction post discharge Follow-up as outpatient closely for titration of diuretics.
[2023-10-12 11:56] LABS: Glucose,Whole Blood 148 mg/dL (70-110)
[2023-10-12 17:10] LABS: Glucose,Whole Blood 189 mg/dL (70-110)
[2023-10-12] MEDS: TAMSULOSIN 0.4 MG CAP.ER.24H PO SCH (22:08)
[2023-10-12] MEDS: ATORVASTATIN 20 MG TAB PO SCH (22:08)
[2023-10-12] MEDS: MONTELUKAST 10 MG TAB PO SCH (22:08)
[2023-10-12] MEDS: SERTRALINE 100 MG TAB PO SCH (22:08)
[2023-10-12] MEDS: GABAPENTIN 300 MG CAP PO SCH (22:08)
[2023-10-13] MEDS: IPRATROPIUM-ALBUTEROL 3 ML NEB INHALATION SCH ×4 (07:42→20:50)
[2023-10-13] MEDS: SYMBICORT 160-4.5 MCG INHALER INHALATION SCH ×2 (07:42→20:50)
[2023-10-13] MEDS: predniSONE 10 MG TAB PO SCH (08:14)
[2023-10-13] MEDS: PANTOPRAZOLE 40 MG TABLET PO SCH (08:14)
[2023-10-13] MEDS: APIXABAN 2.5 MG TABLET PO SCH ×2 (08:14→21:14)
[2023-10-13] MEDS: CYANOCOBALAMIN 500 MCG TAB PO SCH (08:14)
[2023-10-13] MEDS: CHOLECALCIFEROL 25 MCG (1000 IU) TABLET PO SCH (08:14)
[2023-10-13] MEDS: FUROSEMIDE 20 MG TAB PO SCH ×2 (08:14→16:17)
[2023-10-13] MEDS: SODIUM CHLORIDE 0.9% 1,000 ML IV SCH (08:15)
[2023-10-13] MEDS: NYSTATIN 100,000 UNIT/GM POWD 15 GM TOPICAL SCH ×2 (08:15→21:15)
[2023-10-13] MEDS: AMMONIUM LACTATE 12% LOTION 225 GM BTL TOPICAL SCH ×2 (08:15→21:15)
[2023-10-13] MEDS: METOPROLOL TARTRATE 12.5 MG TAB PO SCH ×2 (08:15→21:16)
--- NOTE | 2023-10-13 10:23 | P.PN ---
Subjective Patient is seen in follow-up for acute kidney injury and chronic kidney disease. Resting in bed. Sitting breathing treatment. Has Lynn catheter. Nonoliguric. On oral diuretics. No vomiting or diarrhea. Vital signs are stable. General: No acute distress. HEENT: Head exam is unremarkable. LUNGS: No audible rhonchi or wheezes. HEART: Rate and Rhythm are regular. ABDOMEN: Nontender, obese. EXTREMITITES: Lower extremities wrapped. 1+ edema. Objective - Vital Signs Vital signs: Vital Signs Temp 98.3 F 10/13/23 07:04 Pulse 64 10/13/23 08:00 Resp 18 10/13/23 07:04 BP 85/51 10/13/23 07:04 Pulse Ox 96 10/13/23 07:04 FiO2 40 10/13/23 04:24 Intake & Output 10/12/23 10/13/23 10/13/23 18:59 06:59 18:59 Intake Total 1320 Output Total 1500 600 Balance -180 -600 Intake: Oral 1320 Output: Urine 1500 600 Other: Voiding Method Indwelling Catheter Indwelling Catheter # Bowel Movements 1 - Labs CBC & Chem 7: 10/08/23 10:52 10/11/23 07:52 Labs: Abnormal Lab Results - Last 24 Hours (Table) 10/12/23 10/12/23 Range/Units 11:54 17:07 POC Glucose (mg/dL) 148 H 189 H (70-110) mg/dL Assessment and Plan Plan: Assessment: 1. Acute kidney injury secondary to ATN secondary to cardiorenal syndrome. No hydronephrosis noted on ultrasound in 08/31/2023. No proteinuria on UA. Creatinine down to 1.28 dated 10/11/2023. 2. Chronic kidney disease stage IIIa her baseline creatinine 1.5 secondary to cardiorenal syndrome. 3. Acute on chronic diastolic CHF. 4. Acute hypoxic respiratory failure. 5. Obesity. Plan: Maintain oral Lasix. I advised patient to maintain a low-salt diet and fluid restriction of less than 50 ounces per day. Follow up outpatient 1 week post discharge.
[2023-10-13 11:12] LABS: ALT 19 U/L (10-49); AST 23 U/L (14-35); Albumin/Globulin Ratio 0.88 Ratio (1.60-3.17); Alkaline Phosphatase 179 U/L (41-126); BUN/Creat Ratio 39.93 Ratio (12.00-20.00); Blood Urea Nitrogen 59.9 mg/dL (9.0-27.0); Chloride 92 mmol/L (96-109); Globulin 3.4 g/dL (1.6-3.3); Glucose 87 mg/dL (70-110); Potassium 4.2 mmol/L (3.5-5.5); Sodium 139 mmol/L (135-145); Total Bilirubin 0.8 mg/dL (0.3-1.2); Total Protein 6.4 g/dL (6.2-8.2)
[2023-10-13 11:51] LABS: Basophils # (M) 0 X 10*3/uL (0.00-0.10); Eosinophils # (M) 0 X 10*3/uL (0.04-0.35); HGB 8.7 g/dL (13.0-17.0); Lymphocytes # (M) 0.55 X 10*3/uL (0.90-5.00); MCH 25.8 pg (27.0-32.0); Mean Platelet Volume 10.7 FL (9.5-12.2); Metamyelocytes % 4 % (0-0); Monocytes # (M) 0.99 X 10*3/uL (0.20-1.00); Myelocytes % 4 % (0-0); NRBC Per 100 WBC 0.02 X 10*3/uL (0.00-0.01); Neutrophils # (M) 8.61 X 10*3/uL (1.80-7.70); Neutrophils % (M) 78 %; Platelet Count 278 X 10*3/uL (140-440); RBC 3.37 X 10*6/uL (4.40-5.60); RDW 18.3 % (11.5-14.5); WBC 11.04 X 10*3/uL (4.50-10.00)
--- NOTE | 2023-10-13 14:20 | P.PN ---
Subjective Progress Note Date: 10/13/23 This is 73-year-old male patient with a known history of congestive heart failure, asthma/COPD, obstructive sleep apnea with CPAP, chronic oxygen dependence, hyperlipidemia, hypertension, paroxysmal atrial fibrillation, chronic leg wounds, frequent readmissions for congestive heart failure and hypoxic respiratory failure. Patient was discharged 15 days ago for similar symptoms. He resides at a local extended care facility. The patient had been pulling off his CPAP device there and an unknown time of how long he had been without it and was found altered and hypoxemic. He was brought back to the emergency room early this morning for the same. Chest x-ray reveals cardiomegaly and severe pulmonary edema with mild pleural effusions. Computed tomography scan of the brain revealed no acute intracranial abnormalities. Moderate atrophy and chronic microvascular ischemic changes. White count 12.9. Hemoglobin 9.2. Platelets 158. Sodium 137. Potassium 3.9. Bicarb 28. BUN 88. Creatinine 2.14. AST 27. ALT 23. Troponin negative times one. ProBNP 3690. Arterial blood gases on 40% FiO2 revealed a PaO2 of 95, P CO2 of 52 and at pH of 7.42. He was given a breathing treatment and Decadron. He is seen today in the emergency department. He remains arousable but unable to answer any qu estions. He is on BiPAP 12/6 at 40% FiO2 with the current 2 saturation 96%. He is afebrile. Hemodynamically stable. The patient is seen today 10/05/2023 in follow-up on the selective care unit. He is better today compared to yesterday. Currently on the off the BiPAP which she has been utilizing 12/6 at 40% FiO2. Currently on 4 L nasal cannula. He has less lower extremity edema. He is responding well to the Lasix drip which is at 10 mg per hour. Currently in a -2.8 L balance. Lynn catheter remains in place. Continue on DuoNeb inhalations, Azmacort and Perforomist inhalations, Solu-Medrol. He is anticoagulated with Xarelto. The patient is seen today 10/06/2023 in follow-up on the selective care unit. He is sitting up in a chair. Awake and alert in no acute distress. Currently on 4 L nasal cannula with O2 saturations in the 90s. He does utilize BiPAP 12/6 and 40% FiO2 at nighttime and during the day while napping. He is continued on the Lasix drip at 10 mg per hour. Currently in a -1.7 L balance. Lynn catheter remains in place. White count 8.9. Hemoglobin 8.5. Platelets 208. Sodium 143. Potassium 3.5. Bicarb 35. BUN 101. Creatinine 2.00. Glucose 158. He is continued on DuoNeb inhalations, Pulmicort and Perforomist inhalations, Solu-Medrol and Singulair. Anticoagulated with Xarelto. Remains on Tessalon Perles. The patient is seen today 10/12/2023 in follow-up on the regular medical floor. He is currently resting comfortably in bed. Awake and alert in no acute distress. BiPAP 12/ and 40% FiO2 currently. No IV fluids. He remains with indwelling catheter. Currently in a -2.8 L balance. X-ray reveals cardiomegaly, pulmonary vascular congestion and bilateral pleural effusions. Blood sugar 101. He remains on oral diuretics. Continue on DuoNeb inhalations, Symbicort, Singulair and a prednisone taper. Anticoagulated with Eliquis. on today's evaluation of 10/13/2023, the patient is being seen for a follow-up. The patient is resting comfortably in bed. He is on 4 L of oxygen by nasal cannula. He continues to diabetes well with Lasix and the patient has been switched to the Lasix 60 mg by mouth twice a day. He is also on anticoagulation with Eliquis. No chest pain. No shortness of breath. No altered mentation. He is utilizing the BiPAP overnight and is using currently oxygen at 4 L/m nasal cannula.labs from today showed a loose, BUN 11, hemoglobin of 8.7,the sodium level is at 139, BUN is a 59 with a creatinine of 1.5. The acute kidney injury is essentially improving. Objective - Vital Signs Vital signs: Vital Signs Temp 98.3 F 10/13/23 07:04 Pulse 64 10/13/23 11:42 Resp 18 10/13/23 07:04 BP 85/51 10/13/23 07:04 Pulse Ox 96 10/13/23 07:04 FiO2 40 10/13/23 04:24 Intake & Output 10/12/23 10/13/23 10/13/23 18:59 06:59 18:59 Intake Total 1320 Output Total 1500 600 Balance -180 -600 Intake: Oral 1320 Output: Urine 1500 600 Other: Voiding Method Indwelling Catheter Indwelling Catheter Indwelling Catheter # Bowel Movements 1 - Exam GENERAL EXAM: Awake, alert, 73-year-old male, on 4 L O2 nasal cannula HEAD: Normocephalic. EYES: Normal reaction of pupils, equal size. NOSE: Clear with pink turbinates. THROAT: No erythema or exudates. NECK: No masses, no JVD. CHEST: No chest wall deformity. LUNGS: Equal air entry with bilateral crackles, diminished. CVS: S1 and S2 normal with no audible murmur, regular rhythm. ABDOMEN: No hepatosplenomegaly, normal bowel sounds, no guarding or rigidity. SPINE: No scoliosis or deformity SKIN: Edema and redness of the lower extremities, wrapped in bandages. CENTRAL NERVOUS SYSTEM: No focal deficits, tone is normal in all 4 extremities. EXTREMITIES: There is 2+ peripheral edema. BASIA wraps to the lower extremities. Changes of chronic venous stasis. Peripheral pulses are intact. - Labs CBC & Chem 7: 10/13/23 06:31 10/13/23 06:31 Labs: Abnormal Lab Results - Last 24 Hours (Table) 10/12/23 10/13/23 10/13/23 Range/Units 17:07 06:31 06:31 WBC 11.04 H (4.50-10.00) X 10*3/uL RBC 3.37 L (4.40-5.60) X 10*6/uL Hgb 8.7 L (13.0-17.0) g/dL Hct 30.0 L (39.6-50.0) % MCH 25.8 L (27.0-32.0) pg MCHC 29.0 L (32.0-37.0) g/dL RDW 18.3 H (11.5-14.5) % Lymphocytes # (Manual) 0.55 L (0.90-5.00) X 10*3/uL Eosinophils # (Manual) 0 L (0.04-0.35) X 10*3/uL NRBC/100 WBC Diff 0.02 H (0.00-0.01) X 10*3/uL Chloride 92 L (96-109) mmol/L Carbon Dioxide 36.0 H (21.6-31.8) mmol/L BUN 59.9 H (9.0-27.0) mg/dL Est GFR (CKD-EPI) 49 L (>=60) BUN/Creatinine Ratio 39.93 H (12.00-20.00) Ratio POC Glucose (mg/dL) 189 H (70-110) mg/dL Alkaline Phosphatase 179 H (41-126) U/L Albumin 3.0 L (3.8-4.9) g/dL Globulin 3.4 H (1.6-3.3) g/dL Albumin/Globulin Ratio 0.88 L (1.60-3.17) Ratio Assessment and Plan Plan: Acute exacerbation of chronic diastolic CHF, chest x-ray shows cardiomegaly, pulmonary vascular congestion, and pleural effusion. Echocardiogram 08/25/23 showed preserved left ventricular systolic function, ejection fraction 50-55%. The patient is a preserved LV function. The patient has responded nicely diuretics and the patient is currently calm and comfortable Acute hypoxic respiratory failure currently on 4 L of Oxymizer nasal cannula, off BiPAP Altered mental status secondary to above, recovered Acute exacerbation of chronic bronchial asthma/COPD Acute on chronic hypoxemic and hypercapnic respiratory failure, currently on 4 L nasal cannula alternating with BiPAP 12 over 6 and 40% FiO2 Multiple admissions due to the above Paroxysmal atrial fibrillation., currently in sinus rhythm, anticoagulation with Xarelto acute kidney injury on top of a Chronic kidney disease stage III, improving Anemia of chronic disease Obstructive sleep apnea syndrome, maintained on CPAP. Chronic venous stasis and right lower extremity wounds Benign essential hypertension History of hyperlipidemia Morbid obesity Poor overall functional performance based on the above-mentioned multiple comorbidities [facility] resident Plan: The patient is stable on 4 L of oxygen by nasal cannula Continue Lasix 60 mg by mouth twice a day Remains in a negative balance Remains on bronchodilators, steroids, currently on prednisone 10 mg by mouth daily Titrate the FiO2 as tolerated DO NOT RESUSCITATE/DO NOT INTUBATE CODE STATUS Plan is to return to [facility] post discharge
--- NOTE | 2023-10-13 14:59 | P.PN ---
Subjective Progress Note Date: 10/13/23 HISTORY OF PRESENT ILLNESS: This is a 73-year-old male with a previous medical history significant for hypertension and hypertensive cardiovascular disease, hyperlipidemia, obesity with obstructive sleep apnea and obesity hypoventilation syndrome, chronic diastolic heart failure, asthma, hypothyroidism, anxiety and depressive disorder, peripheral neuropathy. Patient has had multiple hospitalizations for acute on chronic diastolic heart failure and acute exacerbation of COPD. Patient has had multiple hospitalizations for acute on chronic diastolic heart failure, pulmonary edema, acute exacerbation of COPD, acute on chronic respiratory failure, acute kidney injury, thrombocytopenia, anemia with concern for MDS seen by oncology thought to be due to acute reactivity. Patient is now a long-term resident at [facility]. Patient came into the hospital on 10/04 for hypoxia and dyspnea mental status changes. Patient was refusing to use his CPAP machine. Patient was admitted to the cardiac stepdown unit has been seen in consultation by pulmonary medicine and neurology. Patient has been maintained on BiPAP during the night. He is mental status is back to baseline. Patient was also started on Lasix drip by pulmonary medicine and transitioned to oral. Consult has been added today for nephrology for kidney failure. Lab work reveals hemoglobin of 8.5, BUN 101 and creatinine 2. Capillary blood glucose running between 193 and 219. Patient feels that his breathing is a little bit better today. Blood pressure 99/56, heart rate 78, pulse ox 94% on 4 L nasal cannula. 10/07: Patient is seen today in follow-up. He has been compliant with BiPAP at nighttime. Patient is on a fluid restriction of 1500 ML's. He states he is a little bit short of breath but better from yesterday. He continues to have a cough with sputum production. Consult in place for nephrology to see him today. Repeat BUN 107 creatinine 1.74. Blood pressure 115/66, heart rate in the 60s and 70s, he has been afebrile, pulse ox 99% on 4 L. 10/08: Patient has been afebrile, heart rate in the 70s, blood pressure 122/82, pulse ox 95% on 4 L nasal cannula. Repeat blood work reveals hemoglobin 9.2, potassium 3.3 and has been replaced. BUN 117 creatinine 2.35. Patient is followed by nephrology with recommendations to continue current dose of Lasix 80 mg twice daily. Patient to continue salt and fluid restriction after discharge. Patient is also followed by pulmonary medicine. Patient has been using BiPAP at nighttime. Patient is found resting in bed. He continues to have a congested cough. He went into episode of A. fib with RVR and converted during the night. He has been maintained on Xarelto which will be transitioned to eliquis due to renal failure. Patient appears fatigued today. 10/09: Blood pressure is low this morning at 80/50, heart rate is in the 60s and 70s, pulse ox 93% on 4 L nasal cannula. Patient has continued worsening of his renal function with BUN 131 and creatinine 2.97. Potassium is 4. Capillary blood glucose running between 110 in 173. Patient has been seen by pulmonary medicine this morning clear for discharge. Patient has been seen and followed by nephrology for acute kidney injury. 10/10: M patient is most upset today about having fluid restriction. Fluid restriction is 1500 ML's. Patient has been cleared for discharge by pulmonary medicine. Patient was not discharged yesterday as he did have some dyspnea and also his renal function had worsened. He still appears dyspneic but quite at his baseline. Heart rate is running 80-104, blood pressure 85/55, pulse ox 93% on 4 L nasal cannula. Repeat lab work will be ordered. Lasix has been d iscontinued. 10/11: Patient is sitting up in bed , feels miserable , continues to have cough and appears a bit short of breath, we loosened his fluid restriction, we will continue to monitor very closely, we will repeat CMP today and his creatinine 1.6 and BUN is improving slowly, his prognosis is very guarded and the plaan to get back to [facility] next week 10/13: Patient is utilizing BiPAP at nighttime and on his baseline of 4 L nasal cannula during the day. Patient is been seen by nephrology this morning and recommendations to continue fluid restriction of less than 50 ounces per day. Patient is maintained on oral Lasix at 60 mg twice daily and maintains negative fluid balance. Prednisone is being tapered. Pulse ox 97% on 4 L nasal cannula, blood pressure 107/63, heart rate in the 60s and 70s. Patient has remained afebrile. Repeat blood work reveals WBC 11, hemoglobin 8.7, platelet count 278. Sodium 139, potassium 4.2, chloride 92, CO2 36, BUN 59 creatinine 1.5. Alkaline phosphatase 179 otherwise liver function tests are all within normal limits. REVIEW OF SYSTEMS: Constitutional: No documented fever, no chills, no night sweats. No weight change. No weakness, fatigue or lethargy. No daytime sleepiness. HEENT: No headache. No blurred vision or double vision, no loss of vision. No loss of Hearing, no ringing in the ears, no dizziness. No nasal drainage or congestion. No epistaxis. No sore throat. Lungs: positive for shortness of breath-improving, occasional cough, minimal sputum production. No wheezing. Reports dyspnea with activity. Cardiovascular: positive for chest pain, positive chronic lower extremity edema. No palpitations. positive for paroxysmal nocturnal dyspnea. positive for orthopnea. No lightheadedness or dizziness. No syncopal episodes. Abdominal: Denies abdominal pain. No nausea, vomiting. No diarrhea. No constipation. No bloody or tarry stools reports loss of appetite. Genitourinary: No dysuria, increased frequency, urgency, Lynn catheter in place Musculoskeletal: No myalgias. positive for muscle weakness, positive for gait dysfunction, positive for frequent falls. positive for back pain. No neck pain, bilateral hip pain Integumentary: No wounds, no lesions. No rash or pruritus. No unusual bruising. No change in hair or nails. Neurologic: No aphasia. No facial droop. + change in mentation-back to baseline. No head injury. No headache. No paralysis. No paresthesia. Psychiatric: No depression. No anxiety. No mood swings. Endocrine: No abnormal blood sugars. No weight change. PHYSICAL EXAMINATION: General: 73-year-old male sitting in recliner in no respiratory distress. HEENT: Head is atraumatic, normocephalic, pupils were equal round reactive to light and recommendation, extraocular muscle movement were intact, sclera nonicteric, conjunctivae were pale, mucous membranes of the mouth are somewhat dry. Neck: Supple, no JVP, normal carotid upstroke bilaterally, no lymphadenopathy. Chest: Decreased breath sounds at the bases, few rhonchi, mild expiratory wheezes, no chest wall tenderness, mild intercostal retractions, mild accessory muscle usage. Heart: First heart sound is normal, second heart sound is normal, there is systolic ejection murmur 2/6 located in the left sternal border. Abdomen: Soft, nontender, nondistended, positive bowel sounds, obese. Extremities: There is +1 edema no calf tenderness DP +2 bilaterally, there is bilateral scabbed lesions in both shins free Neurologic examination: Patient is awake alert and oriented X 3, cranial nerves II-12 appear grossly intact, muscle power were 4 out of 5 in upper extremities and 3/5 in bilateral lower extremities ASSESSMENT AND PLAN: 1. Acute hypoxemic respiratory failure due to acute on chronic diastolic heart failure and acute exacerbation of COPD wit RAMYA and OHS and not wearing CPAP. Continue oral prednisone 10 mg daily, continue Symbicort twice daily, monitor input and output and daily weight, continue DuoNeb treatments 4 times daily and as needed, Singulair 10 mg at bedtime. Oral Lasix 60 mg twice daily. Consult with pulmonary medicine appreciated. 2. Acute metabolic encephalopathy secondary to noncompliance with CPAP. Patient continue BiPAP at nighttime and when sleeping. 3. Acute kidney injury on chronic kidney disease stage 3b due to vasomotor nephropathy we will decrease fluid restriction to 2000 cc in 24 hours and we will continue with low salt diet, monitor CMP 4. Paroxysmal atrial fibrillation/ Flutter. Continue patient on metoprolol 37.5 mg orally twice every day, continue eliquis 2.5 mg twice daily 5. Hypertension and hypertensive cardiovascular disease. Continue patient on metoprolol 37.5 mg orally twice every day, monitor the patient blood pressure v lorena closely. 6. Hyperlipidemia. Continue patient on atorvastatin 20 mg orally once every day, monitor lipid panel, keep LDL 55-70. 7. Enlarged prostate. Continue patient on tamsulosin 0.4 mg orally once every day. Patient has Lynn catheter. 8. Anxiety disorder. Continue patient on sertraline 100 mg orally once every day. 9. Neuropathy. Continue patient on gabapentin 300 mg at bedtime. 10. DVT prophylaxis. Eliquis 2.5 mg twice daily 11. GI prophylaxis. Continue patient on Protonix 40 mg orally once every day. 12. licensed psychologist manager consult for discharge planning: Return to [facility] NO CODE Impression and plan of care have been directed as dictated by the signing physician. Concepción Perkins nurse practitioner acting as scribe for signing physician. Objective - Vital Signs Vital signs: Vital Signs Temp 98.2 F 10/13/23 12:15 Pulse 73 10/13/23 12:15 Resp 18 10/13/23 12:15 BP 107/63 10/13/23 12:15 Pulse Ox 97 10/13/23 12:15 FiO2 40 10/13/23 04:24 Intake & Output 10/12/23 10/13/23 10/13/23 18:59 06:59 18:59 Intake Total 1320 1510 Output Total 1500 600 Balance -180 -600 1510 Intake: Oral 1320 1510 Output: Urine 1500 600 Other: Voiding Method Indwelling Catheter Indwelling Catheter Indwelling Catheter # Bowel Movements 1 1 - Labs CBC & Chem 7: 10/13/23 06:31 10/13/23 06:31 Labs: Abnormal Lab Results - Last 24 Hours (Table) 10/12/23 10/13/23 10/13/23 Range/Units 17:07 06:31 06:31 WBC 11.04 H (4.50-10.00) X 10*3/uL RBC 3.37 L (4.40-5.60) X 10*6/uL Hgb 8.7 L (13.0-17.0) g/dL Hct 30.0 L (39.6-50.0) % MCH 25.8 L (27.0-32.0) pg MCHC 29.0 L (32.0-37.0) g/dL RDW 18.3 H (11.5-14.5) % Lymphocytes # (Manual) 0.55 L (0.90-5.00) X 10*3/uL Eosinophils # (Manual) 0 L (0.04-0.35) X 10*3/uL NRBC/100 WBC Diff 0.02 H (0.00-0.01) X 10*3/uL Chloride 92 L (96-109) mmol/L Carbon Dioxide 36.0 H (21.6-31.8) mmol/L BUN 59.9 H (9.0-27.0) mg/dL Est GFR (CKD-EPI) 49 L (>=60) BUN/Creatinine Ratio 39.93 H (12.00-20.00) Ratio POC Glucose (mg/dL) 189 H (70-110) mg/dL Alkaline Phosphatase 179 H (41-126) U/L Albumin 3.0 L (3.8-4.9) g/dL Globulin 3.4 H (1.6-3.3) g/dL Albumin/Globulin Ratio 0.88 L (1.60-3.17) Ratio
[2023-10-13] MEDS: MONTELUKAST 10 MG TAB PO SCH (21:14)
[2023-10-13] MEDS: SERTRALINE 100 MG TAB PO SCH (21:14)
[2023-10-13] MEDS: TAMSULOSIN 0.4 MG CAP.ER.24H PO SCH (21:14)
[2023-10-13] MEDS: GABAPENTIN 300 MG CAP PO SCH (21:14)
[2023-10-13] MEDS: ATORVASTATIN 20 MG TAB PO SCH (21:14)
--- NOTE | 2023-10-14 06:29 | P.PN ---
Subjective Progress Note Date: 10/12/23 HISTORY OF PRESENT ILLNESS: This is a 73-year-old male with a previous medical history significant for hypertension and hypertensive cardiovascular disease, hyperlipidemia, obesity with obstructive sleep apnea and obesity hypoventilation syndrome, chronic diastolic heart failure, asthma, hypothyroidism, anxiety and depressive disorder, peripheral neuropathy. Patient has had multiple hospitalizations for acute on chronic diastolic heart failure and acute exacerbation of COPD. Patient has had multiple hospitalizations for acute on chronic diastolic heart failure, pulmonary edema, acute exacerbation of COPD, acute on chronic respiratory failure, acute kidney injury, thrombocytopenia, anemia with concern for MDS seen by oncology thought to be due to acute reactivity. Patient is now a long-term resident at [facility]. Patient came into the hospital on 10/04 for hypoxia and dyspnea mental status changes. Patient was refusing to use his CPAP machine. Patient was admitted to the cardiac stepdown unit has been seen in consultation by pulmonary medicine and neurology. Patient has been maintained on BiPAP during the night. He is mental status is back to baseline. Patient was also started on Lasix drip by pulmonary medicine and transitioned to oral. Consult has been added today for nephrology for kidney failure. Lab work reveals hemoglobin of 8.5, BUN 101 and creatinine 2. Capillary blood glucose running between 193 and 219. Patient feels that his breathing is a little bit better today. Blood pressure 99/56, heart rate 78, pulse ox 94% on 4 L nasal cannula. 10/07: Patient is seen today in follow-up. He has been compliant with BiPAP at nighttime. Patient is on a fluid restriction of 1500 ML's. He states he is a little bit short of breath but better from yesterday. He continues to have a cough with sputum production. Consult in place for nephrology to see him today. Repeat BUN 107 creatinine 1.74. Blood pressure 115/66, heart rate in the 60s and 70s, he has been afebrile, pulse ox 99% on 4 L. 10/08: Patient has been afebrile, heart rate in the 70s, blood pressure 122/82, pulse ox 95% on 4 L nasal cannula. Repeat blood work reveals hemoglobin 9.2, potassium 3.3 and has been replaced. BUN 117 creatinine 2.35. Patient is followed by nephrology with recommendations to continue current dose of Lasix 80 mg twice daily. Patient to continue salt and fluid restriction after discharge. Patient is also followed by pulmonary medicine. Patient has been using BiPAP at nighttime. Patient is found resting in bed. He continues to have a congested cough. He went into episode of A. fib with RVR and converted during the night. He has been maintained on Xarelto which will be transitioned to eliquis due to renal failure. Patient appears fatigued today. 10/09: Blood pressure is low this morning at 80/50, heart rate is in the 60s and 70s, pulse ox 93% on 4 L nasal cannula. Patient has continued worsening of his renal function with BUN 131 and creatinine 2.97. Potassium is 4. Capillary blood glucose running between 110 in 173. Patient has been seen by pulmonary medicine this morning clear for discharge. Patient has been seen and followed by nephrology for acute kidney injury. 12/10: M patient is most upset today about having fluid restriction. Fluid restriction is 1500 ML's. Patient has been cleared for discharge by pulmonary medicine. Patient was not discharged yesterday as he did have some dyspnea and also his renal function had worsened. He still appears dyspneic but quite at his baseline. Heart rate is running 80-204, blood pressure 85/55, pulse ox 93% on 4 L nasal cannula. Repeat lab work will be ordered. Lasix has been di scontinued. 10/11: Patient is sitting up in bed , feels miserable , continues to have cough and appears a bit short of breath, we loosened his fluid restriction, we will continue to monitor very closely, we will repeat CMP today and his creatinine 1.6 and BUN is improving slowly, his prognosis is very guarded and the plaan to get back to [facility] next week 10/12: Patient is feeling a lot better today, he denies any chest pain, he is asking for more liquid, I increased his allows his fluid to 2000 mL every 24 hours, she seems to be doing okay today, he is more awake and more alert continues to use the BiPAP at night, patient likely be able to get out of the hospital in the next few days back to [facility] on the [place] with the current treatment plan. REVIEW OF SYSTEMS: Constitutional: No documented fever, no chills, no night sweats. No weight change. No weakness, fatigue or lethargy. No daytime sleepiness. HEENT: No headache. No blurred vision or double vision, no loss of vision. No loss of Hearing, no ringing in the ears, no dizziness. No nasal drainage or congestion. No epistaxis. No sore throat. Lungs: positive for shortness of breath-improving, occasional cough, minimal sputum production. No wheezing. Reports dyspnea with activity. Cardiovascular: positive for chest pain, positive chronic lower extremity edema. No palpitations. positive for paroxysmal nocturnal dyspnea. positive for orthopnea. No lightheadedness or dizziness. No syncopal episodes. Abdominal: Reports abdominal pain. No nausea, vomiting. No diarrhea. No constipation. No bloody or tarry stools reports loss of appetite. Genitourinary: No dysuria, increased frequency, urgency, Lynn catheter in place Musculoskeletal: No myalgias. positive for muscle weakness, positive for gait dysfunction, positive for frequent falls. positive for back pain. No neck pain, bilateral hip pain Integumentary: No wounds, no lesions. No rash or pruritus. No unusual bruising. No change in hair or nails. Neurologic: No aphasia. No facial droop. + change in mentation-back to baseline. No head injury. No headache. No paralysis. No paresthesia. Psychiatric: No depression. No anxiety. No mood swings. Endocrine: No abnormal blood sugars. No weight change. PHYSICAL EXAMINATION: General: 73-year-old male sitting in recliner in no respiratory distress. HEENT: Head is atraumatic, normocephalic, pupils were equal round reactive to light and recommendation, extraocular muscle movement were intact, sclera nonicteric, conjunctivae were pale, mucous membranes of the mouth are somewhat dry. Neck: Supple, no JVP, normal carotid upstroke bilaterally, no lymphadenopathy. Chest: Decreased breath sounds at the bases, few rhonchi, mild expiratory wheezes, no chest wall tenderness, mild intercostal retractions, mild accessory muscle usage. Heart: First heart sound is normal, second heart sound is normal, there is systolic ejection murmur 2/6 located in the left sternal border. Abdomen: Soft, nontender, nondistended, positive bowel sounds, obese. Extremities: There is +1 edema no calf tenderness DP +2 bilaterally, there is bilateral scabbed lesions in both shins free Neurologic examination: Patient is awake alert and oriented X 3, cranial nerves II-12 appear grossly intact, muscle power were 4 out of 5 in upper extremities and 3/5 in bilateral lower extremities ASSESSMENT AND PLAN: 1. Acute hypoxemic respiratory failure due to acute on chronic diastolic heart failure and acute exacerbation of COPD wit RAMYA and OHS and not wearing CPAP. Continue oral prednisone, continue Symbicort twice daily, monitor input and output and daily weight, continue DuoNeb treatments 4 times daily and as needed, Singulair 10 mg at bedtime. Oral Lasix has been discontinued Consult with pulmonary medicine appreciated. 2. Acute metabolic encephalopathy secondary to noncompliance with CPAP. Patient continue BiPAP at nighttime and when sleeping. 3. Acute kidney injury on chronic kidney disease stage 3b due to vasomotor nephropathy we will decrease fluid restriction to 2000 cc in 24 hours and we will continue with low salt diet, monitor CMP 4. Paroxysmal atrial fibrillation/ Flutter. Continue patient on metoprolol 37.5 mg orally twice every day, continue eliquis 2.5 mg twice daily 5. Hypertension and hypertensive cardiovascular disease. Continue patient on metoprolol 37.5 mg orally twice every day, monitor the patient blood pressure very closely. 6. Hyperlipidemia. Continue patient on atorvastatin 20 mg orally once every day, monitor lipid panel, keep LDL 55-70. 7. Enlarged prostate. Continue patient on tamsulosin 0.4 mg orally once every day. Patient has Lynn catheter. 8. Anxiety disorder. Continue patient on sertraline 100 mg orally once every day. 9. Neuropathy. Continue patient on gabapentin 300 mg at bedtime. 10. DVT prophylaxis. Eliquis 2.5 mg twice daily 11. GI prophylaxis. Continue patient on Protonix 40 mg orally once every day. 12. site safety manager consult for discharge planning: Return to [facility] NO CODE Objective - Vital Signs Vital signs: Vital Signs Temp 98.9 F 10/12/23 07:20 Pulse 88 10/12/23 07:57 Resp 17 10/12/23 07:20 BP 100/42 10/12/23 07:20 Pulse Ox 97 10/12/23 07:20 FiO2 40 10/12/23 03:32 Intake & Output 10/11/23 10/12/23 10/12/23 18:59 06:59 18:59 Intake Total 1200 590 Output Total 1200 700 Balance 0 -110 Intake: Oral 1200 590 Output: Urine 1200 700 Uretheral (Lynn) 700 Other: Voiding Method Indwelling Catheter # Bowel Movements 1 - Labs CBC & Chem 7: 10/13/23 06:31 10/13/23 06:31 Labs: Abnormal Lab Results - Last 24 Hours (Table) 10/11/23 10/11/23 10/11/23 Range/Units 07:52 11:36 17:32 Chloride 95 L (98-107) mmol/L Carbon Dioxide 37 H (22-30) mmol/L BUN 95 H (9-20) mg/dL Creatinine 1.28 H (0.66-1.25) mg/dL Glucose 106 H (74-99) mg/dL POC Glucose (mg/dL) 186 H 122 H (70-110) mg/dL 10/11/23 Range/Units 20:20 Chloride (98-107) mmol/L Carbon Dioxide (22-30) mmol/L BUN (9-20) mg/dL Creatinine (0.66-1.25) mg/dL Glucose (74-99) mg/dL POC Glucose (mg/dL) 249 H (70-110) mg/dL
[2023-10-14] MEDS: ACETAMINOPHEN TAB 500 MG TAB PO PRN (06:39)
[2023-10-14] MEDS: FUROSEMIDE 20 MG TAB PO SCH ×2 (07:40→15:09)
[2023-10-14] MEDS: PANTOPRAZOLE 40 MG TABLET PO SCH (07:40)
[2023-10-14] MEDS: METOPROLOL TARTRATE 12.5 MG TAB PO SCH ×2 (07:40→21:15)
[2023-10-14] MEDS: APIXABAN 2.5 MG TABLET PO SCH ×2 (07:40→21:15)
[2023-10-14] MEDS: AMMONIUM LACTATE 12% LOTION 225 GM BTL TOPICAL SCH ×2 (07:41→21:16)
[2023-10-14] MEDS: predniSONE 10 MG TAB PO SCH (07:41)
[2023-10-14] MEDS: SYMBICORT 160-4.5 MCG INHALER INHALATION SCH ×2 (07:41→19:31)
[2023-10-14] MEDS: IPRATROPIUM-ALBUTEROL 3 ML NEB INHALATION SCH ×4 (07:41→19:31)
[2023-10-14] MEDS: CYANOCOBALAMIN 500 MCG TAB PO SCH (07:41)
[2023-10-14] MEDS: CHOLECALCIFEROL 25 MCG (1000 IU) TABLET PO SCH (07:41)
[2023-10-14] MEDS: NYSTATIN 100,000 UNIT/GM POWD 15 GM TOPICAL SCH ×2 (07:42→21:16)
[2023-10-14 08:01] LABS: ALT 20 U/L (4-49); AST 30 U/L (17-59); African American GFR (CKD) 69 (>60 ml/min/1.73 sqM); Albumin 2.9 g/dL (3.5-5.0); Albumin/Globulin Ratio 0.8; Alkaline Phosphatase 173 U/L (38-126); Blood Urea Nitrogen 54 mg/dL (9-20); Chloride 93 mmol/L (98-107); Globulin 3.6 g/dL; Glucose 86 mg/dL (74-99); Non-African American GFR(CKD) 60 (>60 ml/min/1.73 sqM); Potassium 3.8 mmol/L (3.5-5.1); Sodium 138 mmol/L (137-145); Total Bilirubin 1.1 mg/dL (0.2-1.3); Total Protein 6.5 g/dL (6.3-8.2)
[2023-10-14 08:07] LABS: Anion Gap 10 mmol/L
[2023-10-14 08:10] LABS: Carbon Dioxide 35 mmol/L (22-30)
[2023-10-14 08:29] LABS: Anisocytosis Slight; HGB 8.9 gm/dL (13.0-17.5); Hypochromasia Marked; MCH 25.7 pg (25.0-35.0); MCHC 30.5 g/dL (31.0-37.0); MCV 84.1 fL (80.0-100.0); Mean Platelet Volume 7.8; Platelet Count 305 k/uL (150-450); RBC 3.45 m/uL (4.30-5.90); RDW 16.9 % (11.5-15.5); WBC 10.4 k/uL (3.8-10.6)
[2023-10-14] MEDS: SODIUM CHLORIDE 0.9% 1,000 ML IV SCH (09:18)
[2023-10-14 10:22] LABS: Band Neutrophils % 1 %; Lymphocytes # (M) 1.35 k/uL (1.0-4.8); Metamyelocytes # (M) 0.52 k/uL (0); Metamyelocytes % 5 %; Monocytes # (M) 0.94 k/uL (0-1.0); Myelocytes # (M) 0.52 k/uL (0); Myelocytes % 5 %; Neutrophils % (M) 68 %; Nucleated Red Blood Cells 0 /100 WBC (0-0); Total Cells Counted 200
--- NOTE | 2023-10-14 11:49 | P.PN ---
Subjective Progress Note Date: 10/14/23 This is 73-year-old male patient with a known history of congestive heart failure, asthma/COPD, obstructive sleep apnea with CPAP, chronic oxygen dependence, hyperlipidemia, hypertension, paroxysmal atrial fibrillation, chronic leg wounds, frequent readmissions for congestive heart failure and hypoxic respiratory failure. Patient was discharged 15 days ago for similar symptoms. He resides at a local extended care facility. The patient had been pulling off his CPAP device there and an unknown time of how long he had been without it and was found altered and hypoxemic. He was brought back to the emergency room early this morning for the same. Chest x-ray reveals cardiomegaly and severe pulmonary edema with mild pleural effusions. Computed tomography scan of the brain revealed no acute intracranial abnormalities. Moderate atrophy and chronic microvascular ischemic changes. White count 12.9. Hemoglobin 9.2. Platelets 158. Sodium 137. Potassium 3.9. Bicarb 28. BUN 88. Creatinine 2.14. AST 27. ALT 23. Troponin negative times one. ProBNP 3690. Arterial blood gases on 40% FiO2 revealed a PaO2 of 95, P CO2 of 52 and at pH of 7.42. He was given a breathing treatment and Decadron. He is seen today in the emergency department. He remains arousable but unable to answer any qu estions. He is on BiPAP 12/6 at 40% FiO2 with the current 2 saturation 96%. He is afebrile. Hemodynamically stable. The patient is seen today 10/05/2023 in follow-up on the selective care unit. He is better today compared to yesterday. Currently on the off the BiPAP which she has been utilizing 12/6 at 40% FiO2. Currently on 4 L nasal cannula. He has less lower extremity edema. He is responding well to the Lasix drip which is at 10 mg per hour. Currently in a -2.8 L balance. Lynn catheter remains in place. Continue on DuoNeb inhalations, Azmacort and Perforomist inhalations, Solu-Medrol. He is anticoagulated with Xarelto. The patient is seen today 10/06/2023 in follow-up on the selective care unit. He is sitting up in a chair. Awake and alert in no acute distress. Currently on 4 L nasal cannula with O2 saturations in the 90s. He does utilize BiPAP 12/6 and 40% FiO2 at nighttime and during the day while napping. He is continued on the Lasix drip at 10 mg per hour. Currently in a -1.7 L balance. Lynn catheter remains in place. White count 8.9. Hemoglobin 8.5. Platelets 208. Sodium 143. Potassium 3.5. Bicarb 35. BUN 101. Creatinine 2.00. Glucose 158. He is continued on DuoNeb inhalations, Pulmicort and Perforomist inhalations, Solu-Medrol and Singulair. Anticoagulated with Xarelto. Remains on Tessalon Perles. The patient is seen today 10/12/2023 in follow-up on the regular medical floor. He is currently resting comfortably in bed. Awake and alert in no acute distress. BiPAP 12/6 and 40% FiO2 currently. No IV fluids. He remains with indwelling catheter. Currently in a -2.8 L balance. X-ray reveals cardiomegaly, pulmonary vascular congestion and bilateral pleural effusions. Blood sugar 101. He remains on oral diuretics. Continue on DuoNeb inhalations, Symbicort, Singulair and a prednisone taper. Anticoagulated with Eliquis. on today's evaluation of 10/13/2023, the patient is being seen for a follow-up. The patient is resting comfortably in bed. He is on 4 L of oxygen by nasal cannula. He continues to diabetes well with Lasix and the patient has been switched to the Lasix 60 mg by mouth twice a day. He is also on anticoagulation with Eliquis. No chest pain. No shortness of breath. No altered mentation. He is utilizing the BiPAP overnight and is using currently oxygen at 4 L/m nasal cannula.labs from today showed a loose, BUN 11, hemoglobin of 8.7,the sodium level is at 139, BUN is a 59 with a creatinine of 1.5. The acute kidney injury is essentially improving. On 10/14/2023, the patient is feeling better compared to yesterday. He remains on 4 L of oxygen by nasal cannula. She is on oral Lasix 60 mg by mouth twice a day. Patient is a negative fluid balance of 7 80 mL over the past 24 hours. T he patient has a BUN of 54 with a creatinine of 1.2 and a sodium level is at 138. The physical is at 10.4 with a hemoglobin of 8.9 and a platelet count of 305. The patient remains on 4 L of Oxymizer nasal cannula and is being gradually weaned off. Continues to have some edema lower oximetry is bi laterally. Continues to be on anticoagulation with Eliquis 2.5 mg twice a day. Rest of the medications remain unchanged. No chest pain. No altered mentation. Utilizing the BiPAP overnight only. Objective - Vital Signs Vital signs: Vital Signs Temp 97.5 F L 10/14/23 07:53 Pulse 60 10/14/23 07:55 Resp 18 10/14/23 07:53 BP 114/55 10/14/23 07:53 Pulse Ox 94 L 10/14/23 07:53 FiO2 40 10/13/23 22:30 Intake & Output 10/13/23 10/14/23 10/14/23 18:59 06:59 18:59 Intake Total 1510 540 Output Total 1300 1100 Balance 210 -560 Intake: Oral 1510 540 Output: Urine 1300 1100 Other: Voiding Method Indwelling Catheter Indwelling Catheter Indwelling Catheter # Bowel Movements 1 - Exam GENERAL EXAM: Awake, alert, 73-year-old male, on 4 L O2 nasal cannula HEAD: Normocephalic. EYES: Normal reaction of pupils, equal size. NOSE: Clear with pink turbinates. THROAT: No erythema or exudates. NECK: No masses, no JVD. CHEST: No chest wall deformity. LUNGS: Equal air entry with bilateral crackles, diminished. CVS: S1 and S2 normal with no audible murmur, regular rhythm. ABDOMEN: No hepatosplenomegaly, normal bowel sounds, no guarding or rigidity. SPINE: No scoliosis or deformity SKIN: Edema and redness of the lower extremities, wrapped in bandages. CENTRAL NERVOUS SYSTEM: No focal deficits, tone is normal in all 4 extremities. EXTREMITIES: There is 2+ peripheral edema. BASIA wraps to the lower extremities. Changes of chronic venous stasis. Peripheral pulses are intact. - Labs CBC & Chem 7: 10/14/23 07:00 10/14/23 07:00 Labs: Abnormal Lab Results - Last 24 Hours (Table) 10/13/23 10/13/23 10/14/23 Range/Units 06:31 06:31 07:00 WBC 11.04 H (4.50-10.00) X 10*3/uL RBC 3.37 L 3.45 L (4.40-5.60) X 10*6/uL Hgb 8.7 L 8.9 L (13.0-17.0) g/dL Hct 30.0 L 29.0 L (39.6-50.0) % MCH 25.8 L (27.0-32.0) pg MCHC 29.0 L 30.5 L (32.0-37.0) g/dL RDW 18.3 H 16.9 H (11.5-14.5) % Neutrophils # (Manual) 8.61 H (1.80-7.70) X 10*3/uL Lymphocytes # (Manual) 0.55 L (0.90-5.00) X 10*3/uL Eosinophils # (Manual) 0 L (0.04-0.35) X 10*3/uL NRBC/100 WBC Diff 0.02 H (0.00-0.01) X 10*3/uL Chloride 92 L (96-109) mmol/L Carbon Dioxide 36.0 H (21.6-31.8) mmol/L BUN 59.9 H (9.0-27.0) mg/dL Est GFR (CKD-EPI) 49 L (>=60) BUN/Creatinine Ratio 39.93 H (12.00-20.00) Ratio Alkaline Phosphatase 179 H (41-126) U/L Albumin 3.0 L (3.8-4.9) g/dL Globulin 3.4 H (1.6-3.3) g/dL Albumin/Globulin Ratio 0.88 L (1.60-3.17) Ratio 10/14/23 Range/Units 07:00 WBC (4.50-10.00) X 10*3/uL RBC (4.40-5.60) X 10*6/uL Hgb (13.0-17.0) g/dL Hct (39.6-50.0) % MCH (27.0-32.0) pg MCHC (32.0-37.0) g/dL RDW (11.5-14.5) % Neutrophils # (Manual) (1.80-7.70) X 10*3/uL Lymphocytes # (Manual) (0.90-5.00) X 10*3/uL Eosinophils # (Manual) (0.04-0.35) X 10*3/uL NRBC/100 WBC Diff (0.00-0.01) X 10*3/uL Chloride 93 L (96-109) mmol/L Carbon Dioxide 35 H (21.6-31.8) mmol/L BUN 54 H (9.0-27.0) mg/dL Est GFR (CKD-EPI) (>=60) BUN/Creatinine Ratio (12.00-20.00) Ratio Alkaline Phosphatase 173 H (41-126) U/L Albumin 2.9 L (3.8-4.9) g/dL Globulin (1.6-3.3) g/dL Albumin/Globulin Ratio (1.60-3.17) Ratio Assessment and Plan Plan: Acute exacerbation of chronic diastolic CHF, chest x-ray shows cardiomegaly, pulmonary vascular congestion, and pleural effusion. Echocardiogram 08/25/23 showed preserved left ventricular systolic function, ejection fraction 50-55%. The patient is a preserved LV function. The patient has responded nicely diuretics and the patient is currently calm and comfortable, the patient is less short of breath compared to yesterday remains on 4 L O2 nasal cannula Acute hypoxic respiratory failure currently on 4 L of oxygen nasal cannula, off BiPAP Altered mental status secondary to above, recovered Acute exacerbation of chronic bronchial asthma/COPD Acute on chronic hypoxemic and hypercapnic respiratory failure, currently on 4 L nasal cannula alternating with BiPAP 12 over 6 and 40% FiO2 Multiple admissions due to the above Paroxysmal atrial fibrillation., currently in sinus rhythm, anticoagulation with Xarelto acute kidney injury on top of a Chronic kidney disease stage III, improving Anemia of chronic disease Obstructive sleep apnea syndrome, maintained on CPAP. Chronic venous stasis and right lower extremity wounds Benign essential hypertension History of hyperlipidemia Morbid obesity Poor overall functional performance based on the above-mentioned multiple comorbidities [facility] resident Plan: Clinically improving and the patient is being considered for ECF transfer The patient is stable on 4 L of oxygen by nasal cannula Continue Lasix 60 mg by mouth twice a day Remains in a negative balance Remains on bronchodilators, steroids, currently on prednisone 10 mg by mouth daily Titrate the FiO2 as tolerated DO NOT RESUSCITATE/DO NOT INTUBATE CODE STATUS Plan is to return to [facility] post discharge
--- NOTE | 2023-10-14 14:36 | P.PN ---
Subjective Patient is seen in follow-up for acute kidney injury and chronic kidney disease. Resting in bed. Has Lynn catheter. Nonoliguric. On oral diuretics. No vomiting or diarrhea. Renal function better. Vital signs are stable. General: No acute distress. HEENT: Head exam is unremarkable. LUNGS: No audible rhonchi or wheezes. HEART: Rate and Rhythm are regular. ABDOMEN: Nontender, obese. EXTREMITITES: Lower extremities wrapped. Trace edema. Objective - Vital Signs Vital signs: Vital Signs Temp 97.9 F 10/14/23 14:07 Pulse 58 L 10/14/23 14:07 Resp 16 10/14/23 14:07 BP 121/68 10/14/23 14:07 Pulse Ox 98 10/14/23 14:07 FiO2 40 10/13/23 22:30 Intake & Output 10/13/23 10/14/23 10/14/23 18:59 06:59 18:59 Intake Total 1510 540 240 Output Total 1300 1100 550 Balance 210 -560 -310 Intake: Oral 1510 540 240 Output: Urine 1300 1100 550 Other: Voiding Method Indwelling Catheter Indwelling Catheter Indwelling Catheter # Bowel Movements 1 - Labs CBC & Chem 7: 10/14/23 07:00 10/14/23 07:00 Labs: Abnormal Lab Results - Last 24 Hours (Table) 10/13/23 10/14/23 10/14/23 Range/Units 06:31 07:00 07:00 RBC 3.45 L (4.30-5.90) m/uL Hgb 8.9 L (13.0-17.5) gm/dL Hct 29.0 L (39.0-53.0) % MCHC 30.5 L (31.0-37.0) g/dL RDW 16.9 H (11.5-15.5) % Neutrophils # (Manual) 8.61 H (1.80-7.70) X 10*3/uL Metamyelocytes # (Man) 0.52 H (0) k/uL Myelocytes # (Manual) 0.52 H (0) k/uL Chloride 93 L (98-107) mmol/L Carbon Dioxide 35 H (22-30) mmol/L BUN 54 H (9-20) mg/dL Alkaline Phosphatase 173 H (38-126) U/L Albumin 2.9 L (3.5-5.0) g/dL Assessment and Plan Plan: Assessment: 1. Acute kidney injury secondary to ATN secondary to cardiorenal syndrome. No hydronephrosis noted on ultrasound in 08/31/2023. No proteinuria on UA. Creatinine down to 1.2. 2. Chronic kidney disease stage IIIa with baseline creatinine 1.5 secondary to cardiorenal syndrome. 3. Acute on chronic diastolic CHF. 4. Acute hypoxic respiratory failure. 5. Obesity. 6. Hypomagnesemia from diuresis. Plan: Maintain oral Lasix. Add oral magnesium oxide. Add maintenance potassium supplementation. I advised patient to maintain a low-salt diet and fluid restriction of less than 50 ounces per day. Follow up outpatient 1 week post discharge. Repeat BMP and magnesium level 2-3 days postdischarge.
[2023-10-14] MEDS: POTASSIUM CHLORIDE ER 10 MEQ TAB.ER.PRT PO SCH (15:09)
[2023-10-14] MEDS: ATORVASTATIN 20 MG TAB PO SCH (21:15)
[2023-10-14] MEDS: GABAPENTIN 300 MG CAP PO SCH (21:15)
[2023-10-14] MEDS: TAMSULOSIN 0.4 MG CAP.ER.24H PO SCH (21:15)
[2023-10-14] MEDS: MAGNESIUM OXIDE 400 MG TAB PO SCH (21:15)
[2023-10-14] MEDS: SERTRALINE 100 MG TAB PO SCH (21:15)
[2023-10-14] MEDS: MONTELUKAST 10 MG TAB PO SCH (21:15)
[2023-10-14] MEDS: guaiFENesin SYRUP 100MG/5ML 200 MG/10 ML CUP PO PRN (21:23)
[2023-10-14] MEDS: MELATONIN 5 MG TABLET PO PRN (21:23)
--- NOTE | 2023-10-15 07:26 | P.PN ---
Subjective Progress Note Date: 10/14/23 HISTORY OF PRESENT ILLNESS: This is a 73-year-old male with a previous medical history significant for hypertension and hypertensive cardiovascular disease, hyperlipidemia, obesity with obstructive sleep apnea and obesity hypoventilation syndrome, chronic diastolic heart failure, asthma, hypothyroidism, anxiety and depressive disorder, peripheral neuropathy. Patient has had multiple hospitalizations for acute on chronic diastolic heart failure and acute exacerbation of COPD. Patient has had multiple hospitalizations for acute on chronic diastolic heart failure, pulmonary edema, acute exacerbation of COPD, acute on chronic respiratory failure, acute kidney injury, thrombocytopenia, anemia with concern for MDS seen by oncology thought to be due to acute reactivity. Patient is now a long-term resident at [facility]. Patient came into the hospital on 10/04 for hypoxia and dyspnea mental status changes. Patient was refusing to use his CPAP machine. Patient was admitted to the cardiac stepdown unit has been seen in consultation by pulmonary medicine and neurology. Patient has been maintained on BiPAP during the night. He is mental status is back to baseline. Patient was also started on Lasix drip by pulmonary medicine and transitioned to oral. Consult has been added today for nephrology for kidney failure. Lab work reveals hemoglobin of 8.5, BUN 101 and creatinine 2. Capillary blood glucose running between 193 and 219. Patient feels that his breathing is a little bit better today. Blood pressure 99/56, heart rate 78, pulse ox 94% on 4 L nasal cannula. 10/07: Patient is seen today in follow-up. He has been compliant with BiPAP at nighttime. Patient is on a fluid restriction of 1500 ML's. He states he is a little bit short of breath but better from yesterday. He continues to have a cough with sputum production. Consult in place for nephrology to see him today. Repeat BUN 107 creatinine 1.74. Blood pressure 115/66, heart rate in the 60s and 70s, he has been afebrile, pulse ox 99% on 4 L. 10/08: Patient has been afebrile, heart rate in the 70s, blood pressure 122/82, pulse ox 95% on 4 L nasal cannula. Repeat blood work reveals hemoglobin 9.2, potassium 3.3 and has been replaced. BUN 117 creatinine 2.35. Patient is followed by nephrology with recommendations to continue current dose of Lasix 80 mg twice daily. Patient to continue salt and fluid restriction after discharge. Patient is also followed by pulmonary medicine. Patient has been using BiPAP at nighttime. Patient is found resting in bed. He continues to have a congested cough. He went into episode of A. fib with RVR and converted during the night. He has been maintained on Xarelto which will be transitioned to eliquis due to renal failure. Patient appears fatigued today. 10/09: Blood pressure is low this morning at 80/50, heart rate is in the 60s and 70s, pulse ox 93% on 4 L nasal cannula. Patient has continued worsening of his renal function with BUN 131 and creatinine 2.97. Potassium is 4. Capillary blood glucose running between 110 in 173. Patient has been seen by pulmonary medicine this morning clear for discharge. Patient has been seen and followed by nephrology for acute kidney injury. 10/10: M patient is most upset today about having fluid restriction. Fluid restriction is 1500 ML's. Patient has been cleared for discharge by pulmonary medicine. Patient was not discharged yesterday as he did have some dyspnea and also his renal function had worsened. He still appears dyspneic but quite at his baseline. Heart rate is running 80-104, blood pressure 85/55, pulse ox 93% on 4 L nasal cannula. Repeat lab work will be ordered. Lasix has been d iscontinued. 10/11: Patient is sitting up in bed , feels miserable , continues to have cough and appears a bit short of breath, we loosened his fluid restriction, we will continue to monitor very closely, we will repeat CMP today and his creatinine 1.6 and BUN is improving slowly, his prognosis is very guarded and the plaan to get back to [facility] next week 10/13: Patient is utilizing BiPAP at nighttime and on his baseline of 4 L nasal cannula during the day. Patient is been seen by nephrology this morning and recommendations to continue fluid restriction of less than 50 ounces per day. Patient is maintained on oral Lasix at 60 mg twice daily and maintains negative fluid balance. Prednisone is being tapered. Pulse ox 97% on 4 L nasal cannula, blood pressure 107/63, heart rate in the 60s and 70s. Patient has remained afebrile. Repeat blood work reveals WBC 11, hemoglobin 8.7, platelet count 278. Sodium 139, potassium 4.2, chloride 92, CO2 36, BUN 59 creatinine 1.5. Alkaline phosphatase 179 otherwise liver function tests are all within normal limits. 10/14: Patient remains afebrile, heart rate in the 60s, blood pressure 114/55, pulse ox 94% on 4 L nasal cannula. Repeat blood work reveals hemoglobin of 8.9, CO2 is 35, BUN 54 creatinine 1.2. Nephrology recommends maintaining Lasix, and magnesium oxide and continue potassium supplementation. Continue low-salt diet and fluid restriction of 50 ounces per day. Patient is also followed by pulmonary medicine. Discharge plan is to return to [facility] where he is a long- term resident. REVIEW OF SYSTEMS: Constitutional: No documented fever, no chills, no night sweats. No weight change. No weakness, fatigue or lethargy. No daytime sleepiness. HEENT: No headache. No blurred vision or double vision, no loss of vision. No loss of Hearing, no ringing in the ears, no dizziness. No nasal drainage or congestion. No epistaxis. No sore throat. Lungs: positive for shortness of breath-improving, occasional cough, minimal sputum production. No wheezing. Reports dyspnea with activity. Cardiovascular: positive for chest pain, positive chronic lower extremity edema. No palpitations. positive for paroxysmal nocturnal dyspnea. positive for orthopnea. No lightheadedness or dizziness. No syncopal episodes. Abdominal: Denies abdominal pain. No nausea, vomiting. No diarrhea. No constipation. No bloody or tarry stools reports loss of appetite. Genitourinary: No dysuria, increased frequency, urgency, Lynn catheter in place Musculoskeletal: No myalgias. positive for muscle weakness, positive for gait dysfunction, positive for frequent falls. positive for back pain. No neck pain, bilateral hip pain Integumentary: No wounds, no lesions. No rash or pruritus. No unusual bruising. No change in hair or nails. Neurologic: No aphasia. No facial droop. + change in mentation-back to baseline. No head injury. No headache. No paralysis. No paresthesia. Psychiatric: No depression. No anxiety. No mood swings. Endocrine: No abnormal blood sugars. No weight change. PHYSICAL EXAMINATION: General: 73-year-old male sitting in recliner in no respiratory distress. HEENT: Head is atraumatic, normocephalic, pupils were equal round reactive to light and recommendation, extraocular muscle movement were intact, sclera nonicteric, conjunctivae were pale, mucous membranes of the mouth are somewhat dry. Neck: Supple, no JVP, normal carotid upstroke bilaterally, no lymphadenopathy. Chest: Decreased breath sounds at the bases, few rhonchi, mild expiratory wheezes, no chest wall tenderness, mild intercostal retractions, mild accessory muscle usage. Heart: First heart sound is normal, second heart sound is normal, there is systolic ejection murmur 2/6 located in the left sternal border. Abdomen: Soft, nontender, nondistended, positive bowel sounds, obese. Extremities: There is trace edema no calf tenderness DP +2 bilaterally. Case wraps in place. Neurologic examination: Patient is awake alert and oriented X 3, cranial nerves II-12 appear grossly intact, muscle power were 4 out of 5 in upper extremities and 3/5 in bilateral lower extremities ASSESSMENT AND PLAN: 1. Acute hypoxemic respiratory failure due to acute on chronic diastolic heart failure and acute exacerbation of COPD wit RAMYA and OHS and not wearing CPAP. Continue oral prednisone 10 mg daily, continue Symbicort twice daily, monitor input and output and daily weight, continue DuoNeb treatments 4 times daily and as needed, Singulair 10 mg at bedtime. Oral Lasix 60 mg twice daily. Consult with pulmonary medicine appreciated. 2. Acute metabolic encephalopathy secondary to noncompliance with CPAP. P atient continue BiPAP at nighttime and when sleeping. 3. Acute kidney injury on chronic kidney disease stage 3b due to vasomotor nephropathy we will decrease fluid restriction to 2000 cc in 24 hours and we will continue with low salt diet, monitor CMP 4. Paroxysmal atrial fibrillation/ Flutter. Continue patient on metoprolol 37.5 mg orally twice every day, continue eliquis 2.5 mg twice daily 5. Hypertension and hypertensive cardiovascular disease. Continue patient on metoprolol 37.5 mg orally twice every day, monitor the patient blood pressure very closely. 6. Hyperlipidemia. Continue patient on atorvastatin 20 mg orally once every day, monitor lipid panel, keep LDL 55-70. 7. Enlarged prostate. Continue patient on tamsulosin 0.4 mg orally once every day. Patient has Lynn catheter. 8. Anxiety disorder. Continue patient on sertraline 100 mg orally once every day. 9. Neuropathy. Continue patient on gabapentin 300 mg at bedtime. 10. DVT prophylaxis. Eliquis 2.5 mg twice daily 11. GI prophylaxis. Continue patient on Protonix 40 mg orally once every day. 12. transcription manager consult for discharge planning: Return to [facility] NO CODE Impression and plan of care have been directed as dictated by the signing physician. Concepción Perkins nurse practitioner acting as scribe for signing physician. Objective - Vital Signs Vital signs: Vital Signs Temp 97.9 F 10/14/23 14:07 Pulse 60 10/14/23 15:27 Resp 16 10/14/23 14:07 BP 121/68 10/14/23 14:07 Pulse Ox 98 10/14/23 14:07 FiO2 40 10/13/23 22:30 Intake & Output 10/13/23 10/14/23 10/14/23 18:59 06:59 18:59 Intake Total 1510 540 240 Output Total 1300 1100 550 Balance 210 -560 -310 Intake: Oral 1510 540 240 Output: Urine 1300 1100 550 Other: Voiding Method Indwelling Catheter Indwelling Catheter Indwelling Catheter # Bowel Movements 1 - Labs CBC & Chem 7: 10/14/23 07:00 10/14/23 07:00 Labs: Abnormal Lab Results - Last 24 Hours (Table) 10/14/23 10/14/23 Range/Units 07:00 07:00 RBC 3.45 L (4.30-5.90) m/uL Hgb 8.9 L (13.0-17.5) gm/dL Hct 29.0 L (39.0-53.0) % MCHC 30.5 L (31.0-37.0) g/dL RDW 16.9 H (11.5-15.5) % Metamyelocytes # (Man) 0.52 H (0) k/uL Myelocytes # (Manual) 0.52 H (0) k/uL Chloride 93 L (98-107) mmol/L Carbon Dioxide 35 H (22-30) mmol/L BUN 54 H (9-20) mg/dL Alkaline Phosphatase 173 H (38-126) U/L Albumin 2.9 L (3.5-5.0) g/dL
[2023-10-15] MEDS: SYMBICORT 160-4.5 MCG INHALER INHALATION SCH (07:30)
[2023-10-15] MEDS: IPRATROPIUM-ALBUTEROL 3 ML NEB INHALATION SCH ×2 (07:30→11:07)
[2023-10-15 07:36] VITALS: BP 116/71; RESP 17; TEMP 98.6
--- NOTE | 2023-10-15 07:37 | P.DS ---
Providers Date of admission: 10/04/23 06:51 Expected date of discharge: 10/15/23 Attending physician: Alison Leon Consults: 10/04/23 06:51 Consult Physician Routine Consulting Provider: Cody Corral Consult Reason/Comments: respiratory failure Do you want consulting provider notified?: Yes 10/04/23 07:03 Consult Physician Routine Consulting Provider: Emily Gillette Consult Reason/Comments: ams Do you want consulting provider notified?: Yes 10/06/23 09:54 Consult Physician Routine Consulting Provider: Bianca Giordano Consult Reason/Comments: kidney failure Do you want consulting provider notified?: Yes Primary care physician: Alison Leon Hospital Course: HISTORY OF PRESENT ILLNESS: This is a 73-year-old male with a previous medical history significant for hypertension and hypertensive cardiovascular disease, hyperlipidemia, obesity with obstructive sleep apnea and obesity hypoventilation syndrome, chronic diastolic heart failure, asthma, hypothyroidism, anxiety and depressive disorder, peripheral neuropathy. Patient has had multiple hospitalizations for acute on chronic diastolic heart failure and acute exacerbation of COPD. Patient has had multiple hospitalizations for acute on chronic diastolic heart failure, pulmonary edema, acute exacerbation of COPD, acute on chronic respiratory failure, acute kidney injury, thrombocytopenia, anemia with concern for MDS seen by oncology thought to be due to acute reactivity. Patient is now a long-term resident at [facility]. Patient came into the hospital on 10/04 for hypoxia and dyspnea mental status changes. Patient was refusing to use his CPAP machine. Patient was admitted to the cardiac stepdown unit has been seen in consultation by pulmonary medicine and neurology. Patient has been maintained on BiPAP during the night. He is mental status is back to baseline. Patient was also started on Lasix drip by pulmonary medicine and transitioned to oral. Consult has been added today for nephrology for kidney failure. Lab work reveals hemoglobin of 8.5, BUN 101 and creatinine 2. Capillary blood glucose running between 193 and 219. Patient feels that his breathing is a little bit better today. Blood pressure 99/56, heart rate 78, pulse ox 94% on 4 L nasal cannula. 10/07: Patient is seen today in follow-up. He has been compliant with BiPAP at nighttime. Patient is on a fluid restriction of 1500 ML's. He states he is a little bit short of breath but better from yesterday. He continues to have a cough with sputum production. Consult in place for nephrology to see him today. Repeat BUN 107 creatinine 1.74. Blood pressure 115/66, heart rate in the 60s and 70s, he has been afebrile, pulse ox 99% on 4 L. 10/08: Patient has been afebrile, heart rate in the 70s, blood pressure 122/82, pulse ox 95% on 4 L nasal cannula. Repeat blood work reveals hemoglobin 9.2, potassium 3.3 and has been replaced. BUN 117 creatinine 2.35. Patient is followed by nephrology with recommendations to continue current dose of Lasix 80 mg twice daily. Patient to continue salt and fluid restriction after discharge. Patient is also followed by pulmonary medicine. Patient has been using BiPAP at nighttime. Patient is found resting in bed. He continues to have a congested cough. He went into episode of A. fib with RVR and converted during the night. He has been maintained on Xarelto which will be transitioned to eliquis due to renal failure. Patient appears fatigued today. 10/09: Blood pressure is low this morning at 80/50, heart rate is in the 60s and 70s, pulse ox 93% on 4 L nasal cannula. Patient has continued worsening of his renal function with BUN 131 and creatinine 2.97. Potassium is 4. Capillary blood glucose running between 110 in 173. Patient has been seen by pulmonary medicine this morning clear for discharge. Patient has been seen and followed by nephrology for acute kidney injury. 10/10: M patient is most upset today about having fluid restriction. Fluid restriction is 1500 ML's. Patient has been cleared for discharge by pulmonary medicine. Patient was not discharged yesterday as he did have some dyspnea and also his renal function had worsened. He still appears dyspneic but quite at his baseline. Heart rate is running 80-104, blood pressure 85/55, pulse ox 93% on 4 L nasal cannula. Repeat lab work will be ordered. Lasix has been discontinued. 10/11: Patient is sitting up in bed , feels miserable , continues to have cough and appears a bit short of breath, we loosened his fluid restriction, we will continue to monitor very closely, we will repeat CMP today and his creatinine 1.6 and BUN is improving slowly, his prognosis is very guarded and the plaan to get back to [facility] next week 10/13: Patient is utilizing BiPAP at nighttime and on his baseline of 4 L nasal cannula during the day. Patient is been seen by nephrology this morning and recommendations to continue fluid restriction of less than 50 ounces per day. Patient is maintained on oral Lasix at 60 mg twice daily and maintains negative fluid balance. Prednisone is being tapered. Pulse ox 97% on 4 L nasal cannula, blood pressure 107/63, heart rate in the 60s and 70s. Patient has remained afebrile. Repeat blood work reveals WBC 11, hemoglobin 8.7, platelet count 278. Sodium 139, potassium 4.2, chloride 92, CO2 36, BUN 59 creatinine 1.5. Alkaline phosphatase 179 otherwise liver function tests are all within normal limits. 10/14: Patient remains afebrile, heart rate in the 60s, blood pressure 114/55, pulse ox 94% on 4 L nasal cannula. Repeat blood work reveals hemoglobin of 8.9, CO2 is 35, BUN 54 creatinine 1.2. Nephrology recommends maintaining Lasix, and magnesium oxide and continue potassium supplementation. Continue low-salt diet and fluid restriction of 50 ounces per day. Patient is also followed by pulmonary medicine. Discharge plan is to return to [facility] where he is a long- term resident. 10/15: Patient is being prepared for discharge back to [facility] where he is a long-term resident. He has completed course of steroids currently on prednisone 10 mg and will be discontinued at discharge. Patient has also been off metolazone and spironolactone which will remain discontinued at discharge. Lasix dose has been adjusted. Lab work has been ordered for Friday this week and Friday of next week. He will remain on low sodium diet and fluid restriction of 2000 ML's daily. Patient remains afebrile, heart rate in the 50s and 60s, blood pressure 116/71, pulse ox 95% on 4 L nasal cannula. Patient has been instructed to utilize CPAP at nighttime and when sleeping. Patient will be discharged today in stable condition. DISCHARGE DIAGNOSES: 1. Acute hypoxemic respiratory failure due to acute on chronic diastolic heart failure and acute exacerbation of COPD wit RAMYA and OHS and not wearing CPAP. 2. Acute metabolic encephalopathy secondary to noncompliance with CPAP. 3. Acute kidney injury on chronic kidney disease stage 3b due to vasomotor nephropathy 4. Paroxysmal atrial fibrillation/ Flutter. 5. Hypertension and hypertensive cardiovascular disease. 6. Hyperlipidemia. 7. Enlarged prostate. 8. Anxiety disorder. 9. Neuropathy. DISCHARGE PLAN: RETURN TO [facility] Greater than 35 minutes was utilized and coordinating patient's discharge. Impression and plan of care have been directed as dictated by the signing physician. Concepción Perkins nurse practitioner acting as scribe for signing physician. Patient Condition at Discharge: Stable Plan - Discharge Summary New Discharge Prescriptions: New Potassium Chloride ER [K-Dur 10] 10 meq PO DAILY tab Furosemide [Lasix] 60 mg PO BID@0900,1600 tab Magnesium Oxide [Mag-Ox] 400 mg PO BID tab Nystatin 100,000 Unit/gm Powd [Mycostatin Powder] 1 applic TOPICAL BID each Apixaban [Eliquis] 5 mg PO BID tab Continue Sertraline [Zoloft] 100 mg PO HS@2100 Atorvastatin [Lipitor] 20 mg PO HS@2100 Tamsulosin [Flomax] 0.4 mg PO HS@2100 Ipratropium-Albuterol Nebulize [Duoneb 0.5 mg-3 mg/3 ml Soln] 3 ml INHALATION RT-Q6H@00,06,12,18 Omeprazole [PriLOSEC] 20 mg PO DAILY@0600 Montelukast [Singulair] 10 mg PO HS@2100 Metoprolol Tartrate [Lopressor] 37.5 mg PO BID@0900,2100 allopurinoL 200 mg PO DAILY@0900 Ammonium Lactate Lotion [Lac-Hydrin 12% Lotion] 1 applic TOPICAL BID guaiFENesin SYRUP 100MG/5ML [Robitussin] 200 mg PO Q6HR PRN ml PRN Reason: Cough Budesonide-Formot 160-4.5 Mcg [Symbicort 160-4.5 Mcg Inhaler] 2 puff INHALATION RT-BID each Gabapentin [Neurontin] 300 mg PO HS@2100 #3 cap Acetaminophen Tab [Tylenol] 500 mg PO Q6H PRN PRN Reason: Pain Cholecalciferol [Vitamin D3 (25 Mcg = 1000 Iu)] 50 mcg PO DAILY@0900 Benzonatate [Tessalon Perles] 200 mg PO TID PRN cap PRN Reason: Cough Melatonin 10 mg PO HS PRN tab PRN Reason: Insomnia Cyanocobalamin [Vitamin B-12] 1,000 mcg PO DAILY@0900 Artificial Tears-Hypromellose [Artificial Tear Drops] 1 drop BOTH EYES TID PRN PRN Reason: Dry Eye(S) Discontinued metOLazone [Zaroxolyn] 2.5 mg PO MOFR Dapagliflozin Propanediol [Farxiga] 10 mg PO DAILY tab Spironolactone [Aldactone] 25 mg PO DAILY@0900 Rivaroxaban [Xarelto] 15 mg PO DAILY@1700 Furosemide [Lasix] 80 mg PO BID@0900,1700 Discharge Medication List Sertraline [Zoloft] 100 mg PO HS@209904/04/17 [History] Atorvastatin [Lipitor] 20 mg PO HS@209907/14/19 [History] Tamsulosin [Flomax] 0.4 mg PO HS@209907/14/19 [History] Ipratropium-Albuterol Nebulize [Duoneb 0.5 mg-3 mg/3 ml Soln] 3 ml INHALATION RT-Q6H@00,06,12,18 08/19/19 [History] Acetaminophen Tab [Tylenol] 500 mg PO Q6H PRN 03/26/23 [History] Cholecalciferol [Vitamin D3 (25 Mcg = 1000 Iu)] 50 mcg PO DAILY@89903/26/23 [History] Benzonatate [Tessalon Perles] 200 mg PO TID PRN cap 07/17/23 [Rx] Montelukast [Singulair] 10 mg PO HS@209908/07/23 [History] Omeprazole [PriLOSEC] 20 mg PO DAILY@0608/07/23 [History] Melatonin 10 mg PO HS PRN tab 08/11/23 [Rx] Ammonium Lactate Lotion [Lac-Hydrin 12% Lotion] 1 applic TOPICAL BID 08/23/23 [History] Metoprolol Tartrate [Lopressor] 37.5 mg PO BID@899,209908/23/23 [History] allopurinoL 200 mg PO DAILY@89908/23/23 [History] Artificial Tears-Hypromellose [Artificial Tear Drops] 1 drop BOTH EYES TID PRN 09/16/23 [History] Cyanocobalamin [Vitamin B-12] 1,000 mcg PO DAILY@89909/16/23 [History] Budesonide-Formot 160-4.5 Mcg [Symbicort 160-4.5 Mcg Inhaler] 2 puff INHALATION RT-BID each 09/18/23 [Rx] guaiFENesin SYRUP 100MG/5ML [Robitussin] 200 mg PO Q6HR PRN ml 09/18/23 [Rx] Apixaban [Eliquis] 5 mg PO BID tab 10/15/23 [Rx] Furosemide [Lasix] 60 mg PO BID@0900,1600 tab 10/15/23 [Rx] Gabapentin [Neurontin] 300 mg PO HS@2100 #3 cap 10/15/23 [Rx] Magnesium Oxide [Mag-Ox] 400 mg PO BID tab 10/15/23 [Rx] Nystatin 100,000 Unit/gm Powd [Mycostatin Powder] 1 applic TOPICAL BID each 10/15/23 [Rx] Potassium Chloride ER [K-Dur 10] 10 meq PO DAILY tab 10/15/23 [Rx] Follow up Appointment(s)/Referral(s): Moncho Lamb MD [STAFF PHYSICIAN] - 2 Weeks Alison Leon MD [Primary Care Provider] - 1-2 days Bright Grider DO [STAFF PHYSICIAN] - 1 Week Andrez Boone MD [STAFF PHYSICIAN] - 2 Weeks Ambulatory/Diagnostic Orders: Complete Blood Count w/diff [LAB.AMB] Location: None Selected Comprehensive Metabolic Panel [LAB.AMB] Location: None Selected Magnesium [LAB.AMB] Location: None Selected Activity/Diet/Wound Care/Special Instructions: Per Dr. Grider - NO more than 2000ml fluid orally per day Discharge Disposition: TRANSFER TO SNF/ECF
[2023-10-15] MEDS: CYANOCOBALAMIN 500 MCG TAB PO SCH (09:51)
[2023-10-15] MEDS: CHOLECALCIFEROL 25 MCG (1000 IU) TABLET PO SCH (09:52)
[2023-10-15] MEDS: predniSONE 10 MG TAB PO SCH (09:52)
[2023-10-15] MEDS: PANTOPRAZOLE 40 MG TABLET PO SCH (09:52)
[2023-10-15] MEDS: FUROSEMIDE 20 MG TAB PO SCH (09:52)
[2023-10-15] MEDS: APIXABAN 2.5 MG TABLET PO SCH (09:52)
[2023-10-15] MEDS: POTASSIUM CHLORIDE ER 10 MEQ TAB.ER.PRT PO SCH (09:52)
[2023-10-15] MEDS: MAGNESIUM OXIDE 400 MG TAB PO SCH (09:52)
[2023-10-15] MEDS: SODIUM CHLORIDE 0.9% 1,000 ML IV SCH (09:53)
[2023-10-15] MEDS: NYSTATIN 100,000 UNIT/GM POWD 15 GM TOPICAL SCH (09:53)
[2023-10-15] MEDS: METOPROLOL TARTRATE 12.5 MG TAB PO SCH (09:53)
[2023-10-15] MEDS: AMMONIUM LACTATE 12% LOTION 225 GM BTL TOPICAL SCH (09:54)
[2023-10-15 11:29] VITALS: PULSE 60
--- NOTE | 2023-10-15 12:04 | P.PN ---
Subjective Patient is seen in follow-up for acute kidney injury and chronic kidney disease. Resting in bed. Has Lynn catheter. Nonoliguric. On oral diuretics. No vomiting or diarrhea. Renal function improved. No active complaints. Vital signs are stable. General: No acute distress. HEENT: Head exam is unremarkable. LUNGS: No audible rhonchi or wheezes. HEART: Rate and Rhythm are regular. ABDOMEN: Nontender, obese. EXTREMITITES: Lower extremities wrapped. Trace edema. Objective - Vital Signs Vital signs: Vital Signs Temp 98.6 F 10/15/23 07:26 Pulse 60 10/15/23 11:20 Resp 17 10/15/23 07:26 BP 116/71 10/15/23 07:26 Pulse Ox 95 10/15/23 07:26 FiO2 40 10/14/23 23:19 Intake & Output 10/14/23 10/15/23 10/15/23 18:59 06:59 18:59 Intake Total 360 540 120 Output Total 1050 925 Balance -690 -385 120 Intake: Oral 360 540 120 Output: Urine 1050 925 Uretheral (Lynn) 500 Other: Voiding Method Indwelling Catheter Indwelling Catheter Indwelling Catheter - Labs CBC & Chem 7: 10/14/23 07:00 10/14/23 07:00 Assessment and Plan Plan: Assessment: 1. Acute kidney injury secondary to ATN secondary to cardiorenal syndrome. No hydronephrosis noted on ultrasound in 08/31/2023. No proteinuria on UA. Creatinine down to 1.2 dated 10/14/2023. 2. Chronic kidney disease stage IIIa with baseline creatinine 1.5 secondary to cardiorenal syndrome. 3. Acute on chronic diastolic CHF. 4. Acute hypoxic respiratory failure. 5. Obesity. 6. Hypomagnesemia from diuresis. On oral magnesium oxide. Plan: Maintain oral Lasix. Maintain potassium supplementation. I advised patient to maintain a low-salt diet and fluid restriction of less than 50 ounces per day. Follow up outpatient 1 week post discharge. Repeat BMP and magnesium level 2-3 days postdischarge.
[2023-10-15 13:58] LABS: BUN/Creat Ratio 26.67 Ratio (12.00-20.00); Carbon Dioxide 34.4 mmol/L (21.6-31.8); Chloride 96 mmol/L (96-109); Glucose 81 mg/dL (70-110); Magnesium 1.7 mg/dL (1.5-2.4); Sodium 142 mmol/L (135-145)
--- NOTE | 2023-10-15 14:50 | P.PN ---
Subjective Progress Note Date: 10/15/23 This is 73-year-old male patient with a known history of congestive heart failure, asthma/COPD, obstructive sleep apnea with CPAP, chronic oxygen dependence, hyperlipidemia, hypertension, paroxysmal atrial fibrillation, chronic leg wounds, frequent readmissions for congestive heart failure and hypoxic respiratory failure. Patient was discharged 15 days ago for similar symptoms. He resides at a local extended care facility. The patient had been pulling off his CPAP device there and an unknown time of how long he had been without it and was found altered and hypoxemic. He was brought back to the emergency room early this morning for the same. Chest x-ray reveals cardiomegaly and severe pulmonary edema with mild pleural effusions. Computed tomography scan of the brain revealed no acute intracranial abnormalities. Moderate atrophy and chronic microvascular ischemic changes. White count 12.9. Hemoglobin 9.2. Platelets 158. Sodium 137. Potassium 3.9. Bicarb 28. BUN 88. Creatinine 2.14. AST 27. ALT 23. Troponin negative times one. ProBNP 3690. Arterial blood gases on 40% FiO2 revealed a PaO2 of 95, P CO2 of 52 and at pH of 7.42. He was given a breathing treatment and Decadron. He is seen today in the emergency department. He remains arousable but unable to answer any qu estions. He is on BiPAP 12/6 at 40% FiO2 with the current 2 saturation 96%. He is afebrile. Hemodynamically stable. The patient is seen today 10/05/2023 in follow-up on the selective care unit. He is better today compared to yesterday. Currently on the off the BiPAP which she has been utilizing 12/6 at 40% FiO2. Currently on 4 L nasal cannula. He has less lower extremity edema. He is responding well to the Lasix drip which is at 10 mg per hour. Currently in a -2.8 L balance. Lynn catheter remains in place. Continue on DuoNeb inhalations, Azmacort and Perforomist inhalations, Solu-Medrol. He is anticoagulated with Xarelto. The patient is seen today 10/06/2023 in follow-up on the selective care unit. He is sitting up in a chair. Awake and alert in no acute distress. Currently on 4 L nasal cannula with O2 saturations in the 90s. He does utilize BiPAP 12/6 and 40% FiO2 at nighttime and during the day while napping. He is continued on the Lasix drip at 10 mg per hour. Currently in a -1.7 L balance. Lynn catheter remains in place. White count 8.9. Hemoglobin 8.5. Platelets 208. Sodium 143. Potassium 3.5. Bicarb 35. BUN 101. Creatinine 2.00. Glucose 158. He is continued on DuoNeb inhalations, Pulmicort and Perforomist inhalations, Solu-Medrol and Singulair. Anticoagulated with Xarelto. Remains on Tessalon Perles. The patient is seen today 10/12/2023 in follow-up on the regular medical floor. He is currently resting comfortably in bed. Awake and alert in no acute distress. BiPAP 12/6 and 40% FiO2 currently. No IV fluids. He remains with indwelling catheter. Currently in a -2.8 L balance. X-ray reveals cardiomegaly, pulmonary vascular congestion and bilateral pleural effusions. Blood sugar 101. He remains on oral diuretics. Continue on DuoNeb inhalations, Symbicort, Singulair and a prednisone taper. Anticoagulated with Eliquis. on today's evaluation of 10/13/2023, the patient is being seen for a follow-up. The patient is resting comfortably in bed. He is on 4 L of oxygen by nasal cannula. He continues to diabetes well with Lasix and the patient has been switched to the Lasix 60 mg by mouth twice a day. He is also on anticoagulation with Eliquis. No chest pain. No shortness of breath. No altered mentation. He is utilizing the BiPAP overnight and is using currently oxygen at 4 L/m nasal cannula.labs from today showed a loose, BUN 11, hemoglobin of 8.7,the sodium level is at 139, BUN is a 59 with a creatinine of 1.5. The acute kidney injury is essentially improving. On 10/14/2023, the patient is feeling better compared to yesterday. He remains on 4 L of oxygen by nasal cannula. She is on oral Lasix 60 mg by mouth twice a day. Patient is a negative fluid balance of 7 80 mL over the past 24 hours. T he patient has a BUN of 54 with a creatinine of 1.2 and a sodium level is at 138. The physical is at 10.4 with a hemoglobin of 8.9 and a platelet count of 305. The patient remains on 4 L of Oxymizer nasal cannula and is being gradually weaned off. Continues to have some edema lower oximetry is bi laterally. Continues to be on anticoagulation with Eliquis 2.5 mg twice a day. Rest of the medications remain unchanged. No chest pain. No altered mentation. Utilizing the BiPAP overnight only. On 10/15/2023, the patient continues to be stable. Remains on 4 L of action by nasal cannula. Producing adequate amount of urine output. Maintain on Lasix 60 mg by mouth twice a day. This will be also continued on an outpatient basis. The patient is being transferred to [facility].Labs from today shows a BUN of 40 with a creatinine of 1.5, sodium is at 142 with a potassium level of 4.0. The patient is hemodynamically stable. He has no specific complaints. Objective - Vital Signs Vital signs: Vital Signs Temp 98.6 F 10/15/23 07:26 Pulse 60 10/15/23 11:20 Resp 17 10/15/23 07:26 BP 116/71 10/15/23 07:26 Pulse Ox 95 10/15/23 07:26 FiO2 40 10/14/23 23:19 Intake & Output 10/14/23 10/15/23 10/15/23 18:59 06:59 18:59 Intake Total 360 540 120 Output Total 1050 925 Balance -690 -385 120 Intake: Oral 360 540 120 Output: Urine 1050 925 Uretheral (Lynn) 500 Other: Voiding Method Indwelling Catheter Indwelling Catheter Indwelling Catheter - Exam GENERAL EXAM: Awake, alert, 73-year-old male, on 4 L O2 nasal cannula HEAD: Normocephalic. EYES: Normal reaction of pupils, equal size. NOSE: Clear with pink turbinates. THROAT: No erythema or exudates. NECK: No masses, no JVD. CHEST: No chest wall deformity. LUNGS: Equal air entry with bilateral crackles, diminished. CVS: S1 and S2 normal with no audible murmur, regular rhythm. ABDOMEN: No hepatosplenomegaly, normal bowel sounds, no guarding or rigidity. SPINE: No scoliosis or deformity SKIN: Edema and redness of the lower extremities, wrapped in bandages. CENTRAL NERVOUS SYSTEM: No focal deficits, tone is normal in all 4 extremities. EXTREMITIES: There is 2+ peripheral edema. BASIA wraps to the lower extremities. Changes of chronic venous stasis. Peripheral pulses are intact. - Labs CBC & Chem 7: 10/14/23 07:00 10/15/23 06:36 Assessment and Plan Plan: Acute exacerbation of chronic diastolic CHF, chest x-ray shows cardiomegaly, pulmonary vascular congestion, and pleural effusion. Echocardiogram 08/25/23 showed preserved left ventricular systolic function, ejection fraction 50-55%. The patient is a preserved LV function. The patient has responded nicely diuretics and the patient is currently calm and comfortable, the patient is less short of breath compared to yesterday remains on 4 L O2 nasal cannula Acute hypoxic respiratory failure currently on 4 L of oxygen nasal cannula, off BiPAP Altered mental status secondary to above, recovered Acute exacerbation of chronic bronchial asthma/COPD Acute on chronic hypoxemic and hypercapnic respiratory failure, currently on 4 L nasal cannula alternating with BiPAP 12 over 6 and 40% FiO2 Multiple admissions due to the above Paroxysmal atrial fibrillation., currently in sinus rhythm, anticoagulation with Xarelto acute kidney injury on top of a Chronic kidney disease stage III, improving Anemia of chronic disease Obstructive sleep apnea syndrome, maintained on CPAP. Chronic venous stasis and right lower extremity wounds Benign essential hypertension History of hyperlipidemia Morbid obesity Poor overall functional performance based on the above-mentioned multiple comor bidities snf resident Plan: The patient's condition is stable and the patient is being transferred to [facility] today Suggest continuing Lasix 60 mg by mouth twice a day Titrate FiO2 on an outpatient basis to maintain a saturation above 90% Remains in a negative balance Remains on bronchodilators, steroids, currently on prednisone 10 mg by mouth daily Titrate the FiO2 as tolerated DO NOT RESUSCITATE/DO NOT INTUBATE CODE STATUS Plan is to return to [facility] post discharge
== END 2023-10-15 12:55 | DRG 291 ==
LOC: EC 00:13 → 3SCARD 06:51 → 5NMEDONC 10-11 13:40
PROVIDERS: ADMIT Internal Medicine; ATTEND Internal Medicine
PROC: 5A09357 Assistance with Respiratory Ventilation, Less than 24 Consecutive Hours, Continuous Positive Airway Pressure (ICD-10-PCS; principal; 2023-10-11)
DX: I13.0 Hypertensive heart and chronic kidney disease with heart failure and stage 1 through stage 4 chronic kidney disease, or unspecified chronic kidney disease (principal); G93.41 Metabolic encephalopathy; J96.22 Acute and chronic respiratory failure with hypercapnia; N17.0 Acute kidney failure with tubular necrosis; I50.33 Acute on chronic diastolic (congestive) heart failure; J96.21 Acute and chronic respiratory failure with hypoxia; N18.4 Chronic kidney disease, stage 4 (severe); E66.2 Morbid (severe) obesity with alveolar hypoventilation; I48.92 Unspecified atrial flutter; I87.333 Chronic venous hypertension (idiopathic) with ulcer and inflammation of bilateral lower extremity; J44.1 Chronic obstructive pulmonary disease with (acute) exacerbation; J45.901 Unspecified asthma with (acute) exacerbation; L97.811 Non-pressure chronic ulcer of other part of right lower leg limited to breakdown of skin; L97.821 Non-pressure chronic ulcer of other part of left lower leg limited to breakdown of skin; Z99.81 Dependence on supplemental oxygen; D63.1 Anemia in chronic kidney disease; E03.9 Hypothyroidism, unspecified; R53.81 Other malaise; E83.42 Hypomagnesemia; E78.5 Hyperlipidemia, unspecified; F41.9 Anxiety disorder, unspecified; F32.A Depression, unspecified; R27.8 Other lack of coordination; Z66 Do not resuscitate; G62.9 Polyneuropathy, unspecified; I87.8 Other specified disorders of veins; I48.0 Paroxysmal atrial fibrillation; N40.0 Benign prostatic hyperplasia without lower urinary tract symptoms; T50.2X5A Adverse effect of carbonic-anhydrase inhibitors, benzothiadiazides and other diuretics, initial encounter; E11.22 Type 2 diabetes mellitus with diabetic chronic kidney disease; T38.0X5A Adverse effect of glucocorticoids and synthetic analogues, initial encounter; Z96.653 Presence of artificial knee joint, bilateral; Z91.199 Patient's noncompliance with other medical treatment and regimen due to unspecified reason; Z68.34 Body mass index [BMI] 34.0-34.9, adult; Z79.01 Long term (current) use of anticoagulants; Z79.51 Long term (current) use of inhaled steroids; Z79.84 Long term (current) use of oral hypoglycemic drugs; Z79.899 Other long term (current) drug therapy; Z87.891 Personal history of nicotine dependence
CPT/HCPCS: 36415; 36600; 70450; 71045; 80048; 80053; 82803; 82805; 83605; 83735; 83880; 84484; 85025; 85027; 85610; 85730; 93005; 94640; 94660; 94760; 96365; 96366; 96375; 99285